=== PATIENT | female | born 1995 | race Caucasian/White ===

== ENCOUNTER 2022-12-09 10:51 | Outpatient (OUT) | payer BC, SELFPAY ==
--- NOTE | 2022-12-09 10:54 | US_ITS ---
[address] [address] Patient Name: CHARLES SANTOS MRN: [id number] date: 1995 Sex: F Assigned Patient Location: US Current Patient Location: Accession/Order Number: [id number] Exam Date: 12/09/2022 10:54 Report Date: 12/10/2022 17:39 At the request of: OLLIE SALAZAR Procedure: US OB transvaginal EXAMINATION: US OB transvaginal HISTORY: MISSED MENSES COMPARISON: No relevant comparison available. FINDINGS: Heart Rate: 186.0 bpm Number: 1.0 Gestational sac: 3.29 cm, 8 weeks 2 days CRL: 2.1 cm, 8 weeks 6 days Yolk sac: 4.6 mm The uterus is normal in appearance The right ovary is normal. The left ovary contains a 5.2 cm cystic lesion possibly corpus luteal cyst Cervix: Closed, 3.6 cm GESTATIONAL AGE: Age by EDC: 9 weeks 0 days ABIGAIL by EDC: 07/14/2023 Age by US: 8 weeks 6 days ABIGAIL by US: 07/15/2023 US/US OB transvaginal IMPRESSION: Viable colby intrauterine gestation measuring 8 weeks 6 days Electronically authenticated by: BERENICE NEWBERRY Date: 12/10/2022 17:39
== END 2022-12-09 10:52 | disposition home or self-care (01) ==
LOC: US 10:51
PROVIDERS: Visit Provider Obstetrics & Gynecology
DX: Z34.91 Encounter for supervision of normal pregnancy, unspecified, first trimester (principal); N92.6 Irregular menstruation, unspecified
CPT/HCPCS: 76817

== ENCOUNTER 2022-12-16 11:00 | Outpatient (OUT) | payer BC, SELFPAY ==
[2022-12-16 12:03] LABS: Basophils Absolute Auto 0.1 10^3/uL (0.0-0.1); Basophils Percent Auto 0.6 % (0.2-2.0); Eosinophils Absolute Auto 0.2 10^3/uL (0.0-0.7); Eosinophils Percent Auto 2.8 % (0.9-7.0); Hematocrit 36.9 % (36.0-48.0); Hemoglobin 12.5 g/dL (12.0-16.0); Immature Granulocytes Abs Auto 0.06 10^3/uL (0.00-0.03); Immature Granulocytes Pct Auto 0.7 % (0.0-0.5); Lymphocytes Percent Auto 24.2 % (20.5-60.0); Mean Corpuscular HGB Conc 33.9 g/dL (29.9-35.2); Mean Corpuscular Hemoglobin 33.9 pg (26.7-34.0); Mean Platelet Volume 9.8 fL (9.5-13.5); Monocytes Absolute Auto 0.8 10^3/uL (0.3-0.8); Monocytes Percent Auto 9.4 % (1.7-12.0); Neutrophils Absolute Auto 5.2 10^3/uL (1.4-6.5); Neutrophils Percent Auto 62.3 % (43.0-75.0); Platelet Count 340 10^3/uL (150-450); Red Blood Count 3.69 10^6/uL (4.20-5.40); Red Cell Distribution Width 12.1 % (11.0-15.0); White Blood Count 8.3 10^3/uL (4.0-11.0)
[2022-12-16 12:19] LABS: Estimated Average Glucose 100 mg/dL; Glycohemoglobin A1C 5.1 % (4.5-6.2)
[2022-12-16 12:31] LABS: Thyroid Stimulating Hormone 2.603 uIU/mL (0.358-3.740)
[2022-12-17 05:07] LABS: HCV Ab Non Reactive (Non Reactive); HIV Ab/p24 Ag Screen Non Reactive (Non Reactive)
[2022-12-17 06:12] LABS: HBsAg Screen Negative (Negative)
[2022-12-17 10:08] LABS: Rapid Plasma Reagin, Quant Non Reactive (NonRea<1:1)
== END 2022-12-16 11:01 | disposition home or self-care (01) ==
LOC: LAB 11:03
PROVIDERS: PCP Family Medicine; Visit Provider Obstetrics & Gynecology
DX: Z34.80 Encounter for supervision of other normal pregnancy, unspecified trimester (principal); N92.6 Irregular menstruation, unspecified
CPT/HCPCS: 36415; 83036; 84443; 85025; 86592; 86762; 86803; 86850; 86900; 86901; 87086; 87340; 87389

== ENCOUNTER 2023-03-02 19:28 | Outpatient (REF) | payer BC, SELFPAY ==
[2023-03-07 12:10] LABS: Age Gdln ACOG Testing Note (.); IGP, rfx Aptima HPV ASCU Note (.)
== END 2023-03-02 19:29 | disposition home or self-care (01) ==
LOC: LAB 19:28
PROVIDERS: PCP Family Medicine; Visit Provider Obstetrics & Gynecology
DX: Z12.4 Encounter for screening for malignant neoplasm of cervix (principal)
CPT/HCPCS: G0145

== ENCOUNTER 2023-04-22 10:35 | Outpatient (OUT) | payer OTHER, SELFPAY ==
--- OUTSIDE RECORDS SUMMARY | 2023-04-22 10:42 | XMS_ITS | CCD ---
Author Name Unknown Address [address] [facility] [address] [place] [address] Organization [facility] Care Team Providers Care Sharemilker Name Role Phone MANSOOR, JUSTIN M Primary Care Physician Mansoor, Justin Unavailable Johana Duran Unavailable William Payne Unavailable Mansoor, DO Justin M. Primary Care Provider MD William Payne Attending Provider [phone] MANSOOR, JUSTIN M Admitting Unavailable MANSOOR, JUSTIN M Attending Unavailable MANSOOR, JUSTIN M Admitting Unavailable MANSOOR, JUSTIN M Attending Unavailable MANSOOR, JUSTIN M Referring Unavailable Mal, Olena A Admitting Unavailable Mal, Olena A Attending Unavailable Mal, Olena A Referring Unavailable Hajdari, Astrit H Attending Unavailable Hajdari, Astrit H Attending Unavailable SALAM, Brandon Admitting Unavailable SALAMRoma Attending Unavailable SALAM, Brandon Referring Unavailable Mal, Olena A Attending Unavailable Mal, Olena A Attending Unavailable Moelioy, Román E. Attending Unavailable Mal, Olena A Referring Unavailable Mourany, Román E. Attending Unavailable Mal, Olena A Referring Unavailable William Payne Admitting Unavailable William Payne Attending Unavailable Mansoor, Justin M. Primary Care Unavailable William Payne Admitting Unavailable William Payne Attending Unavailable Mansoor, Justin M. Primary Care Unavailable Mansoor, Justin M. Admitting Unavailable Mansoor, Justin M. Attending Unavailable Mansoor, Justin M. Primary Care Unavailable William Payne Admitting Unavailable William Payne Attending Unavailable Mansoor, Justin M. Primary Care Unavailable JOCE DAVIDSON Attending Unavailable Allergies Allergy Classification Reported Allergen(s) Allergy Type Date of Onset Reaction(s) Facility (20 sources) Azithromycin; Translations: [azithromycin] Drug Allergy Eruption (morphologic abnormality), Itching (finding) [facility] (20 sources) rizatriptan Drug Allergy nausea [facility] [employer] Other (20 sources) meloxicam Drug Allergy worse joint symptoms, nauseous [facility] [employer] Other (20 sources) Acetaminophen / Codeine Drug Allergy rash/facial swelling [facility] [employer] Other (4 sources) Codeine; Translations: [codeine] Drug Allergy Eruption of skin (disorder) [facility] (20 sources) Diclofenac Drug Allergy nausea [facility] [employer] Other (1 source) Azithromycin; Translations: [Zithromax Z-Sixto] Drug Allergy [facility] Medications Current Medications Medication Drug Class(es) Dates Sig (Normalized) Sig (Original) acetaminophen 500 mg oral tablet (1 source) take 1 tablet by mouth every six hours Tylenol Extra Strength 500 MG 1 tablet as needed Orally every 6 hrs Active acetaminophen 250 mg / aspirin 250 mg / caffeine 65 mg oral tablet (20 sources) Platelet Aggregation Inhibitor, Nonsteroidal Anti-inflammatory Drug, Central Nervous System Stimulant, Methylxanthine take 2 tablets by mouth every twenty-four hours take 2 tablets by mouth every tw enty-four hours acetaminophen 300 mg / codeine phosphate 30 mg oral tablet (20 sources) Opioid Agonist Start: 08-24-2022 take 1 tablet by mouth every six hours Start: 08-16-2022 take 1 tablet by shelby th every six hours Acetaminophen-Codeine #3 300-30 MG 1 tablet as needed Orally every 6 hrs for 7 days August, Active Start: 08-10-2022 take 1 tablet by shelby th every six hours Acetaminophen-Codeine #3 300-30 MG 1 tablet as needed Orally every 6 hrs for 7 days Jul, Active Start: 08-02-2022 take 1 tablet by shelby th every six hours Acetaminophen-Codeine #3 300-30 MG 1 tablet as needed Orally every 6 hrs for 7 days Jul, Active Start: 07-27-2022 acetaminophen- codeine 300 mg-30 mg Tab Refill(s) 0 Start Date: 07/27/22 Status: Ordered Start: 07-25-2022 take 1 tablet by shelby th every six hours Acetaminophen-Codeine #3 300-30 MG 1 tablet as needed Orally every 6 hrs for 7 days Jul, Active Start: 07-18-2022 take 1 tablet by shelby th every six hours Acetaminophen-Codeine #3 300-30 MG 1 tablet as needed Orally every 6 hrs for 7 days Jul, Active Start: 07-06-2022 take 1 tablet by shelby th every six hours Acetaminophen-Codeine #3 300-30 MG 1 tablet as needed Orally every 6 hrs for 7 days Jun, Active Start: 06-24-2022 take 1 tablet by shelby th every six hours Acetaminophen-Codeine #3 300-30 MG 1 tablet as needed Orally every 6 hrs for 7 days Jun, Active Start: 06-14-2022 take 1 tablet by shelby th every six hours Acetaminophen-Codeine #3 300-30 MG 1 tablet as needed Orally every 6 hrs for 7 days May, Active Start: 2022 take 1 tablet by shelby th every six hours Acetaminophen-Codeine #3 300-30 MG 1 tablet as needed Orally every 6 hrs for 7 days May, Active Start: 03-07-2022 take 1 tablet by shelby th every six hours Acetaminophen-Codeine #3 300-30 MG 1 tablet as needed Orally every 6 hrs for 7 days Feb, Active Start: 02-11-2022 take 1 tablet by shelby th every six hours Acetaminophen-Codeine #3 300-30 MG 1 tablet as needed Orally every 6 hrs for 7 days Jan, Active Start: 01-18-2022 take 1 tablet by shelby th every six hours Acetaminophen-Codeine #3 300-30 MG 1 tablet as needed Orally every 6 hrs for 7 days Jan, Active Start: 01-06-2022 take 1 tablet by shelby th every six hours Acetaminophen-Codeine #3 300-30 MG 1 tablet as needed Orally every 6 hrs for 7 days Dec, Active Start: 12-14-2021 take 1 tablet by shelby th every six hours Acetaminophen-Codeine #3 300-30 MG 1 tablet as needed Orally every 6 hrs for 7 days Nov, Active Start: 10-22-2021 take 1 tablet by shelby th every six hours Acetaminophen-Codeine #3 300-30 MG 1 tablet as needed Orally every 6 hrs for 7 days Nov, Active Start: 09-27-2021 take 1 tablet by shelby th every six hours Acetaminophen-Codeine #3 300-30 MG 1 tablet as needed Orally every 6 hrs for 7 days Sep, Active Start: 09-01-2021 take 1 tablet by shelby th every six hours Acetaminophen-Codeine #3 300-30 MG 1 tablet as needed Orally every 6 hrs for 7 days August, Active Start: 08-05-2021 take 1 tablet by shelby th every six hours Acetaminophen-Codeine #3 300-30 MG 1 tablet as needed Orally every 6 hrs for 7 days Jul, Active Start: 12-15-2020 take 1 tablet by shelby th every six hours Acetaminophen-Codeine #3 300-30 MG 1 tablet as needed Orally every 6 hrs for 7 days Nov, Not-Taking acetaminophen 325 mg / HYDROcodone bitartrate 5 mg oral tablet (5 sources) Opioid Agonist Start: 10-31-2022 take 1 tablet by mouth every twelve hours Start: 10-31-2022 take 1 tablet by shelby th every twelve hours HYDROcodone-Acetaminophen 5-325 MG 1 tab let as needed Orally every 12 hrs for 5 days Oct, Active Start: 10-21-2022 take 1 tablet by shelby th every twelve hours Start: 10-21-2022 take 1 tablet by shelby th every twelve hours HYDROcodone-Acetaminophen 5-325 MG 1 tab let as needed Orally every 12 hrs for 5 days Oct, Active ARIPiprazole 5 mg oral tablet (8 sources) Atypical Antipsychotic Start: 11-09-2022 aripiprazole 5 mg Tab Refills(s) 0 Start Date: 11/09/22 Status: Ordered azithromycin 250 mg oral tablet (9 sources) Macrolide Antimicrobial Start: 01-06-2022 Zithromax Z-Sixto 250 MG as directed Orally daily for 5 days Dec, Active cyclobenzaprine hydrochloride 10 mg oral tablet (20 sources) Muscle Relaxant Start: 10-06-2022 take 1 tablet by mouth twice daily as needed Cyclobenzaprine HCl 10 MG 1 tablet as needed Orally up to twice daily as needed for 30 days Sep, Active eletriptan 40 mg oral tablet (10 sources) Serotonin-1b and Serotonin-1d Receptor Agonist Start: 06-21-2022 take 1 tablet by mouth every two hours Relpax 40 MG 1 tablet Orally at the onset of migraine, may repeat in 2 hrs for 30 days Jun, Active escitalopram 20 mg oral tablet (20 sources) Serotonin Reuptake Inhibitor Start: 07-05-2017 take 1 tablet by mouth every twenty-four hours Lexapro 20 MG 1 tablets Orally Once a day for 90 days Jun, Active Start: 07-05-2017 take 1 tablet by shelby once daily Lexapro 10 mg Tab 10 mg = 1 tab(s), Oral, Daily, Refills(s) 0, Anxiety Start Date: 02/04/20 Status: Ordered Nexium (20 sources) Proton Pump Inhibitor Start: 08-12-2021 Nexium O ral, Daily, Refills(s) 0, Control of stomach acid Start Date: 08/12/21 Status: Ordered Start: 08-12-2021 Nexium Oral, D aily, Refills(s) 0 Start Date: 08/12/21 Status: Ordered Start: 10-16-2020 take 1 capsule by mo [facility] every twenty-four hours Esomeprazole Magnesium 20 MG 1 capsule Orally Once a day for 30 day(s) Oct, Active famotidine 20 mg oral tablet (4 sources) Histamine-2 Receptor Antagonist take 1 tablet by mouth every twenty-four hours Pepcid 20 MG 1 tablet at bedtime as needed Orally Once a day Active magnesium sulfate 225 MG / potassium chloride 188 MG / sodium sulfate 1479 MG Oral Tablet [Sutab] (3 sources) Start : 07-27 take 1 tablet by mouth once Sutab oral tablet See Instructions, 1 EA, Refill(s) 0, Please follow instructions per packaging and physician's handout, [facility], 157, cm, 07/27/22 9:34:00 EDT, Height/Length Dosing, 76.7, kg, 07/27/22 9:34:00 EDT, Weight Dosing Start Date: 07/27/22 Status: Ordered meloxicam 15 mg oral tablet (20 sources) Nonsteroidal Anti-inflammatory Drug Start : 07-27 meloxicam 15 mg Tab Refills(s) 0, Arthritis Start Date: 07/27/22 Status: Ordered methylPREDNISolone 4 mg oral tablet (3 sources) Corticosteroid Start : 08-23 methylPREDNISolone 4 MG as directed Orally as directed for 6 days August, Active metoclopramide 5 mg oral tablet (1 source) Dopamine-2 Receptor Antagonist Start : 02-22 End: 03-01 take 1 tablet by mouth every six hours Reglan 5 mg Tab 5 mg = 1 tab(s), Oral, q6hr, to use if zofran fails., X 7 day(s), # 20 tab(s), Refills(s) 0, Pharmacy: [facility] #[id number], 158, cm, 02/22/23 12:17:00 EST, Height/Length Dosing, 87.3, kg, 02/22/23 12:17:00 EST, Weight Dosing Start Date: 02/22/23 Stop Date: 03/01/23 Status: Ordered montelukast 10 mg oral tablet (20 sources) Leukotriene Receptor Antagonist Start : 02-03 take 1 tablet by mouth once daily Singulair 10 mg Tab 10 mg = 1 tab(s), Oral, Daily, Refills(s) 0, Allergy symptoms Start Date: 02/04/20 Status: Ordered omeprazole 40 mg delayed release oral capsule (20 sources) Proton Pump Inhibitor Start : 09-26 take 1 capsule by mouth once daily omeprazole 40 mg Cap-DR 40 mg = 1 cap(s), Oral, Daily, # 90 cap(s), Refills(s) 3, Pharmacy: [facility] #[id number], 158, cm, 11/09/22 13:50:00 EDT, Height/Length Dosing, 76.2, kg, 11/09/22 13:50:00 EDT, Weight Dosing Start Date: 12/29/22 Status: Ordered take 1 capsule by mouth once naima ly Omeprazole 20 MG 1 capsule 30 minutes before morning meal Orally Once a day Active ondansetron 8 mg oral tablet (8 sources) Serotonin-3 Receptor Antagonist Start: 11-22-2022 take 1 tablet by mouth every eight hours as needed Zofran ODT 8 MG 1 tablet on the tongue and allow to dissolve as needed Orally every 8 hrs for 7 days Nov, Active phentermine hydrochloride 37.5 mg oral tablet (20 sources) Sympathomimetic Amine Anorectic Start: 07-19-2022 phentermine 37.5 mg Tab Refills(s) 0 Start Date: 07/27/22 Status: Ordered Start: 11-05-2021 take 1 tablet by shelby th every twenty-four hours Phentermine HCl 37.5 MG 1 tablet Orally Once a day for 30 days Nov, Active Start: 10-05-2021 take 1 tablet by shelby th every twenty-four hours Phentermine HCl 37.5 MG 1 tablet Orally Once a day for 30 days Sep, Active Start: 11-16-2020 take 1 tablet by shelby th every twenty-four hours Phentermine HCl 37.5 MG 1 tablet Orally Once a day for 30 days Nov, Not-Taking Adipex-P Active polyethylene glycol 3350 with electrolytes Oral Pwdr for Whitney 4000 mL (NuLytely) (1 source) Start: 08-12-2021 End: 09-02-2021 take 1 dose by mouth once polyethylene glycol 3350 with electrolytes Oral Pwdr for Whitney 4000 mL (NuLytely) See Instructions, 1 EA, Refill(s) 0, per physician's instructions prior to colonoscopy as instructed by Dr. Hawkins., [facility], 157, cm, 08/12/21 12:58:00 EDT, Height/Length Dosing, 89.7, kg, 08/12/21 12:58:00 EDT, Weight Dosing Start Date: 08/12/21 Stop Date: 09/02/21 Status: Ordered predniSONE 20 mg oral tablet (10 sources) Start: 01-06-2022 take 3 tablets by mouth every twenty-four hours predniSONE 20 MG 3 tablet Orally Once a day for 6 day(s) Dec, Active rizatriptan 10 mg disintegrating oral tablet (1 source) Serotonin-1b and Serotonin-1d Receptor Agonist take 1 tablet by mouth every two hours Rizatriptan Benzoate 10 MG 1 tablet Orally at the onset of migraine - may repeat in 2 hrs for 30 day(s) Active TENS Unit (20 sources) Start: 09-02-2022 Start: 09-02-2022 Start: 09-02-2022 TENS Unit Use as directed. August, Not-Taking traMADol hydrochloride 50 mg oral tablet (20 sources) Opioid Agonist Start: 11-08-2022 take 1 tablet by mouth every twelve hours Start: 10-26-2022 take 1 tablet by shelby th every twelve hours Start: 10-12-2022 take 1 tablet by shelby th every twelve hours traMADol HCl 50 MG 1 tablet as needed Orally BID for 14 days Sep, Active Start: 09-26-2022 take 50 mg by mouth every twelve hours as needed for pain tramadol 50 mg, Oral, q12hr, PRN Other (see comment), Refills(s) 0, Pain Start Date: 09/26/22 Status: Ordered Start: 09-19-2022 take 1 tablet by shelby th every twelve hours traMADol HCl 50 MG 1 tablet as needed Orally BID for 14 days Sep, Active Start: 09-06-2022 take 1 tablet by shelby th every twelve hours traMADol HCl 50 MG 1 tablet as needed Orally BID for 14 days August, Active Tylenol Extra Strength 500 M G (20 sources) take 1 tablet by mouth every six hours as needed take 1 tablet by shelby th every six hours as needed Tylenol Extra Strength 500 MG 1 tablet a s needed Orally every 6 hrs Active Ubrelvy 100 MG (20 sources) Start: 06-06-2022 Start: 06-06-2022 Start: 06-06-2022 Ubrelvy 100 MG 1 tablet may take second dose at least 2 hours after first dose as needed Orally Once a day for 30 days May, Not-Taking Start: 06-06-2022 Ubrelvy 100 MG 1 tablet may take second dose at least 2 hours after first dose as needed Orally Once a day for 30 days May, Active Start: 06-06-2022 Ubrelvy 100 MG 1 tablet may take second dose at least 2 hours after first dose as needed Orally Once a day for 2 days May, Active ubrogepant 100 mg oral tablet (6 sources) Start: 06-06-2022 Ubrelvy 100 MG 1 tablet may take second dose at least 2 hours after first dose as needed Orally Once a day for 30 days May, Active Zofran ODT 4 mg Tab-Dis (9 sources) Start: 02-22-2023 take 1 tablet by mouth every eight hours as needed for nausea Zofran ODT 4 mg Tab-Dis 4 mg = 1 tab(s), Oral, q8hr, PRN Nausea/Vomiting, # 12 tab(s), Refills(s) 0, Pharmacy: [id number], 158, cm, 02/22/23 12:17:00 EST, Height/Length Dosing, 87.3, kg, 02/22/23 12:17:00 EST, Weight Dosing Start Date: 02/22/23 Status: Ordered Start: 03-23-2022 take 1 tablet by shelby th every eight hours as needed for nausea Zofran ODT 4 mg Tab-Dis 4 mg = 1 tab(s), Oral, q8hr, PRN Nausea/Vomiting, # 12 tab(s), Refills(s) 0, Pharmacy: [facility] #[id number], 157, cm, 03/23/22 13:50:00 EST, Height/Length Dosing, 80.1, kg, 03/23/22 13:50:00 EST, Weight Dosing Start Date: 03/23/22 Status: Ordered Completed/Discontinued Medications Medication Drug Class(es) Dates Sig (Normalized) Sig (Original) amoxicillin 875 mg / clavulanate 125 mg oral tablet (8 sources) Penicillin-class Antibacterial Start: 01-12-2022 take 1 tablet by mouth every twelve hours Amoxicillin-Pot Clavulanate 875-125 MG 1 tablet Orally every 12 hrs for 10 day(s) Dec, Not-Taking diclofenac sodium 0.01 mg/mg topical gel (20 sources) Nonsteroidal Anti-inflammatory Drug Start: 09-02-2022 Voltaren 1 % as directed Externally 1-2 grams every 6-8 hour as needed for 30 days August, Not-Taking Start: 08-17-2022 take 1 tablet by mouth every t welve hours fexofenadine hydrochloride 180 mg oral tablet (9 sources) Histamine-1 Receptor Antagonist take 1 tablet by mouth every twenty-four hours Allergy 24-HR 180 MG 1 tablet as needed Orally Once a day Not-Taking fluticasone propionate 0.05 mg/actuat metered dose nasal spray (20 sources) Corticosteroid take 2 spray(s) nasal route once daily as needed Fluticasone Propionate 50 MCG/ACT 2 spray in each nostril Nasally Once a day Not-Taking/PRN take 2 spray(s) nasal route once daily Fluticasone Propionate 50 MCG/ACT 2 spray in each nostril Nasally Once a day Not-Taking Problems Active Problems Problem Classification Problem Date Documented Da te Episodic/Chronic Abdominal pain (8 sources) Epigastric pain; Translations: [Epigastric pain] Onset: 3 Episodic Anxiety disorders (20 sources) Anxiety; Translations: [Anxiety disorder, unspecified] Onset: 2 Resolved: 2 Chronic Biliary tract disease (5 sources) Cholelithiasis without obstruction; Translations: [Calculus of gallbladder without cholecystitis without obstruction] Onset: 3 Episodic Esophageal disorders (20 sources) Gastroesophageal reflux disease without esophagitis; Translations: [Gastro-esophageal reflux disease without esophagitis] Onset: 3 Chronic Gastroduodenal ulcer (except hemorrhage) (3 sources) Gastric ulcer; Translations: [Gastric ulcer, unspecified as acute or chronic, without hemorrhage or perforation] Onset: 3 Chronic Gastrointestinal hemorrhage (20 sources) Melena; Translations: [Melena] Onset: 2 Resolved: 2 Episodic Headache; including migraine (20 sources) Migraine without aura, not refractory ; Translations: [Migraine without aura, not intractable, without status migrainosus] Chronic Hemorrhoids (3 sources) Hemorrhoids; Translations: [Unspecified hemorrhoids] Onset: 3 Episodic Immunizations and screening for infectious disease (2 sources) Encounter for immunization Onset: 1 Resolved: 1 Episodic Malaise and fatigue (20 sources) Fatigue; Translations: [Chronic fatigue, unspecified] Chronic Menstrual disorders (20 sources) Amenorrhea; Translations: [Amenorrhea, unspecified] Chronic Nausea and vomiting (13 sources) Nausea and vomiting; Translations: [Nausea with vomiting, unspecified] Onset: 3 08-12-2021 Episodic Other complications of (1 source) Vomiting of ; Translations: [Vomiting of , unspecified] Onset: 3 Episodic Other connective tissue disease (10 sources) Trochanteric bursitis 07-19-2016 Episodic Other connective tissue disease (1 source) Myalgia, other site Episodic Other gastrointestinal disorders (1 source) Abnormal feces; Translations: [Other fecal abnormalities] Onset: 3 Episodic Other gastrointestinal disorders (2 sources) Hard stool 11-09-2022 Episodic Other nervous system disorders (20 sources) Disturbance of attention; Translations: [Attention and concentration deficit] Chronic Other nervous system disorders (3 sources) Attention and concentration deficit Chronic Other nervous system disorders (20 sources) Chronic pain; Translations: [Other chronic pain] Chronic Other nervous system disorders (1 source) Other chronic pain Chronic Other non-traumatic joint disorders (1 source) Pain in right shoulder Episodic Other nutritional; endocrine; and metabolic disorders (20 sources) Body mass index 40+ - severely obese; Translations: [Body mass index (BMI) 40.0-44.9, adult] Chronic Other nutritional; endocrine; and metabolic disorders (20 sources) Body mass index 30+ - obesity; Translations: [Body mass index (BMI) 39.0-39.9, adult] 08-05-2022 Chronic Other nutritional; endocrine; and metabolic disorders (1 source) Body mass index (BMI) 36.0-36.9, adult Onset: 2 Resolved: 2 Chronic Other nutritional; endocrine; and metabolic disorders (2 sources) Body mass index (BMI) 35.0-35.9, adult Onset: 2 Resolved: 2 Chronic Other nutritional; endocrine; and metabolic disorders (1 source) Body mass index (BMI) 34.0-34.9, adult Onset: 2 Resolved: 2 Chronic Other nutritional; endocrine; and metabolic disorders (3 sources) Body mass index (BMI) 30.0-30.9, adult Chronic Other nutritional; endocrine; and metabolic disorders (20 sources) Obesity; Translations: [Obesity, unspecified] Chronic Other nutritional; endocrine; and metabolic disorders (1 source) Obese class I; Translations: [Body mass index (BMI) 31.0-31.9, adult] Onset: 3 Chronic Other nutritional; endocrine; and metabolic disorders (3 sources) Obesity, unspecified Chronic Other nutritional; endocrine; and metabolic disorders (1 source) Body mass index (BMI) 29.0-29.9, adult Episodic Other upper respiratory disease (20 sources) Seasonal allergy; Translations: [Other seasonal allergic rhinitis] Chronic Other upper respiratory disease (7 sources) Other seasonal allergic rhinitis Onset: 2 Resolved: 2 Chronic Other upper respiratory infections (1 source) Acute upper respiratory infection, unspecified Episodic Residual codes; unclassified (8 sources) Family history of polyp of colon; Translations: [Family history of colonic polyps] Onset: 3 Episodic Residual codes; unclassified (1 source) 9 weeks gestation of Episodic Spondylosis; intervertebral disc disorders; other back problems (20 sources) Degeneration of cervical intervertebral disc; Translations: [Degeneration of lumbar intervertebral disc] Onset: 1 Resolved: 2 03-20-2016 Chronic Spondylosis; intervertebral disc disorders; other back problems (15 sources) Chronic low back pain; Translations: [Cervicalgia] Onset: 3 07-19-2016 Episodic Substance-related disorders (8 sources) Smoker 03-23-2022 Chronic Comment on above: Added secondary to d ocumentation in Social History. Unclassified (1 source) Pain in right shoulder; Translations: [Pain in right shoulder] Onset: 3 Unclassified (1 source) Low back pain, unspecified; Translations: [Low back pain, unspecified] Onset: 3 Past or Other Problems Problem Classification Problem Date Documented Da te Episodic/Chronic Allergic reactions (1 source) Allergic contact dermatitis due to plants, except food Onset: 08-23-2021 Resolved: 08-23-2021 Episodic Unclassified (10 sources) Onset: 04-17-2012 Resolved: 12-27-2012 10-23-2014 Unclassified (1 source) Low back pain, unspecified back pain laterality, unspecified chronicity, unspecified whether sciatica present M54.50 Results Test Name Value Interpretation Reference Range Facility C Urineon 02-24-2023 Bacteria identified Cx Nom (U) Microbiology PROCEDURE: Urine Culture [R1] SOURCE: U CleanCatch BODY SITE: COLLECTED DATE/TIME: 02/22/2023 12:21 EST RECEIVED DATE/TIME: 02/22/2023 13:21 EST START DATE/TIME: 02/22/2023 13:22 EST FREE TEXT SOURCE: Alex Modi, Rodney Johnson M.D., Rodney Wood FINAL REPORTS Final Report [] Verified Date/Time: 02/24/2023 09:16 EST <10,000 cfu/ml Mixed skin contaminants Performing Locations R1: This test was performed at: [facility], [address] [place] [address], [id number] , , Normal [facility] Comment on above: Performed By: #### 2 [id number] #### [facility] [address] [place] [id number] Auto Diffon 02-22-2023 Basophils/100 WBC (Bld) 0.5 % Normal 0.0-2.0 [facility] Comment on above: Order Comment: Order Added by Discern Expert. Performed By: #### 2 [id number] #### [facility] [address] [place] [id number] Basophils/Leukocyt es Auto (Bld) [Pure # fraction] 0.0 E9/L Normal 0.0-0.2 [facility] Comment on above: Order Comment: Order Added by Discern Expert. Performed By: #### 2 [id number] #### [facility] [address] [place] [id number] Eosinophils/100 WBC (Bld) 1.8 % Normal 0.0-8.0 [facility] Comment on above: Order Comment: Order Added by Discern Expert. Performed By: #### 2 [id number] #### [facility] [address] [place] [id number] Eosinophils/Leukoc ytes Auto (Bld) [Pure # fraction] 0.2 E9/L Normal 0.0-0.5 [facility] Comment on above: Order Comment: Order Added by Discern Expert. Performed By: #### 2 [id number] #### [facility] [address] [place] [address] Lymphocytes/100 WBC (Bld) 19.0 % Normal 14.0-50.0 [facility] Comment on above: Order Comment: Order Added by Discern Expert. Performed By: #### 2 874932, 0008070, 9599025, 71363406, 2518904, 8201002 #### [facility] [address] [place] [address] Lymphocytes/Leukoc ytes Auto (Bld) [Pure # fraction] 1.6 E9/L Normal 1.0-4.0 [facility] Comment on above: Order Comment: Order Added by Discern Expert. Performed By: #### 2 854728, 7048363, 6901513, 27055495, 7496343, 7974843 #### [facility] [address] [place] [address] Monocytes/100 WBC (Bld) 7.4 % Normal 4.0-14.0 [facility] Comment on above: Order Comment: Order Added by Discern Expert. Performed By: #### 2 134370, 2969266, 5023730, 82915523, 2251406, 0740047 #### [facility] [address] [place] [address] Monocytes/Leukocyt es Auto (Bld) [Pure # fraction] 0.6 E9/L Normal 0.2-1.0 [facility] Comment on above: Order Comment: Order Added by Discern Expert. Performed By: #### 2 067673, 1145777, 6145696, 05851238, 4125280, 3210799 #### [facility] [address] [place] [address] Neutrophils/100 WBC (Bld) 71.3 % Normal 36.0-75.0 [facility] Comment on above: Order Comment: Order Added by Discern Expert. Performed By: #### 2 173331, 7314316, 3868260, 19858782, 0164601, 7840717 #### [facility] [address] [place] [address] Neutrophils/Leukoc ytes Auto (Bld) [Pure # fraction] 6.0 E9/L Normal 2.0-7.5 [facility] Comment on above: Order Comment: Order Added by Discern Expert. Performed By: #### 2 136525, 2275464, 7623342, 89869225, 7398352, 9846599 #### [facility] [address] [place] [address] BMPon 02-22-2023 Creatinine [Mass/Vol] 0.5 mg/dL Normal 0.5-1.3 [facility] Comment on above: Performed By: #### 2 955350, 4464645, 9427032, 66774442, 1140027, 0684228 ####[facility] [address] [place] [address] Urea nitrogen [Mass/Vol] 6 mg/dL Normal 5-21 [facility] Comment on above: Performed By: #### 2 651644, 9904983, 5418990, 52125519, 6164939, 2234357 ####[facility] [address] [place] [address] Urea nitrogen/Creatinin e [Mass ratio] 12 No Units Normal 10-20 [facility] Comment on above: Performed By: #### 2 764939, 2513886, 5627356, 42661649, 2100865, 3921022 ####[facility] [address] [place] [address] Anion gap [Moles/Vol] 9 mmol/L Normal 6-16 [facility] Comment on above: Performed By: #### 2 816818, 7948714, 6635837, 93467643, 8867364, 7943763 ####[facility] [address] [place] [address] Calcium [Mass/Vol] 8.8 mg/dL Low 8.9-11.1 [facility] Comment on above: Performed By: #### 2 063482, 6446082, 4325585, 95494077, 4262091, 4999279 ####[facility] [address] [place] [address] Chloride [Moles/Vol] 108 mmol/L Normal 101-111 [facility] Comment on above: Performed By: #### 2 599099, 3691705, 8447707, 10398413, 8481482, 1429532 ####[facility] [address] [place] [address] CO2 [Moles/Vol] 23 mmol/L Normal 21-31 [facility] Comment on above: Performed By: #### 2 882257, 8633815, 8894975, 29750102, 3640112, 6155942 ####[facility] [address] [place] [address] Glucose [Mass/Vol] 93 mg/dL Normal 55-199 [facility] Comment on above: Result Comment: If t his glucose result represents a fasting glucose, interpretation should refer to the following reference range: 55-99 mg/dL Performed By: #### 2 468956, 4521796, 0049576, 48438788, 0200339, 2130784 ####[facility] [address] [place] [address] Potassium [Moles/Vol] 3.4 mmol/L Low 3.5-5.3 [facility] Comment on above: Performed By: #### 2 782893, 3610153, 1098602, 66593453, 9434547, 0955530 ####[facility] [address] [place] [address] Sodium [Moles/Vol] 137 mmol/L Normal 135-145 [facility] Comment on above: Performed By: #### 2 857928, 0671627, 1493161, 02910231, 4574426, 9072121 ####[facility] [address] [place] [address] CBC w/ Auto Diffon 3 Erythrocyte distribution width (RBC) [Ratio] 12.6 % Normal 10.9-14.2 [facility] Comment on above: Performed By: #### 2 194825, 5089789, 1885629, 59068297, 1718466, 9108178 #### [facility] [address] [place] [address] Hematocrit (Bld) [Volume fraction] 35.9 % Normal 34.0-46.0 [facility] Comment on above: Performed By: #### 2 172174, 9404979, 7320663, 66074620, 8020835, 8792236 #### [facility] [address] [place] [address] Hemoglobin (Bld) [Mass/Vol] 12.0 g/dL Normal 12.0-16.0 [facility] Comment on above: Performed By: #### 2 698005, 9086570, 4403701, 05433075, 4349853, 9139006 #### [facility] [address] [place] [address] MCH (RBC) [Entitic mass] 32.7 pg Normal 27.0-34.0 [facility] Comment on above: Performed By: #### 2 395084, 3829643, 1655007, 44582016, 6989407, 1058650 #### [facility] [address] [place] [address] MCHC (RBC) [Mass/Vol] 33.4 g/dL Normal 31.4-36.0 [facility] Comment on above: Performed By: #### 2 404485, 6768739, 5576403, 92028805, 9020980, 0096907 #### [facility] [address] [place] [address] MCV (RBC) [Entitic vol] 97.8 fL Normal 80.0-100.0 [facility] Comment on above: Performed By: #### 2 281859, 6434620, 0890712, 17904614, 2269349, 2023287 #### [facility] [address] [place] [address] Platelet mean volume (Bld) [Entitic vol] 7.9 fL Normal 6.4-10.8 [facility] Comment on above: Performed By: #### 2 805969, 6193315, 6177756, 77071508, 1779954, 8195081 #### [facility] [address] [place] [address] Platelets (Bld) [#/Vol] 323.0 E9/L Normal 150.0-500.0 [facility] Comment on above: Performed By: #### 2 981681, 2960756, 4267666, 86277741, 9550700, 1931025 #### [facility] [address] [place] [address] RBC (Bld) [#/Vol] 3.7 E12/L Low 4.3-5.9 [facility] Comment on above: Performed By: #### 2 971859, 7780986, 5983986, 16053351, 1430185, 9791764 #### [facility] [address] [place] [address] WBC corrected for nucl RBC Auto (Bld) [#/Vol] 8.4 E9/L Normal 4.0-11.0 [facility] Comment on above: Performed By: #### 2 563103, 7763267, 7061044, 54426997, 2660468, 8999676 #### [facility] [address] [place] [address] CHEMISTRYOrdered By: SYSTEM SYSTEM on 02-22-2023 Albumin [Mass/Vol] 3.4 g/dL Normal 3.3 - 5.0 gm/dL [facility] Albumin/Globulin [Mass ratio] 1.1 {ratio} Normal 1.1 - 2.2 [facility] ALP [Catalytic activity/Vol] 35 [iU]/d Normal 21 - 98 Int._Unit/L [facility] ALT No additional P-5'-P [Catalytic activity/Vol] 13 [iU]/d Normal 6 - 46 Int._Unit/L [facility] Anion gap [Moles/Vol] 9 mmol/L Normal 6 - 16 mEq/L [facility] AST [Catalytic activity/Vol] 13 [iU]/d Normal 5 - 43 Int._Unit/L [facility] Bilirubin [Mass/Vol] 0.2 mg/dL Normal 0.0 - 1.1 mg/dL [facility] Bilirubin.direct [Mass/Vol] mg/dL Normal 0.1 - 0.4 mg/dL [facility] Bilirubin.indirect [Mass or moles/Vol] Unable to Calculate mg/dL Invalid Interpretation Code 0.1 - 0.9 mg/dL [facility] Calcium [Mass/Vol] 8.8 mg/dL Low 8.9 - 11. 1 mg/dL [facility] Chloride [Moles/Vol] 108 mmol/L Normal 101 - 111 mmol/L [facility] CO2 [Moles/Vol] 23 mmol/L Normal 21 - 31 mmol/L [facility] Creatinine [Mass/Vol] 0.5 mg/dL Normal 0.5 - 1.3 mg/dL [facility] GFR/1.73 sq M.predicted among non-blacks MDRD (S/P/Bld) [Vol rate/Area] 130 mL/min/1.73 m2 Normal >=59mL/min/1.7 3 m2 [facility] Comment on above: Interpretive Data: C hronic kidney disease could be indicated at eGFR's of less than 60 mL/min/1.73m2. Kidney failure is indicated at less than 15 mL/min/1.73m2. Globulin (S) [Mass/Vol] 3.2 g/dL Normal 1.4 - 4.0 gm/dL [facility] Glucose [Mass/Vol] 93 mg/dL Normal 55 - 199 mg/dL [facility] Comment on above: Interpretive Data: I f this glucose result represents a fasting glucose, interpretation should refer to the following reference range: 55-99 mg/dL Lipase [Catalytic activity/Vol] 25 U/L Normal 13 - 58 unit/L [facility] Potassium [Moles/Vol] 3.4 mmol/L Low 3.5 - 5.3 mmol/L [facility] Protein [Mass/Vol] 6.6 g/dL Normal 6.0 - 7.8 gm/dL [facility] Sodium [Moles/Vol] 137 mmol/L Normal 135 - 145 mmol/L [facility] Urea nitrogen [Mass/Vol] 6 mg/dL Normal 5 - 21 mg/dL [facility] Urea nitrogen/Creatinin e [Mass ratio] 12 mg/mg Normal 10 - 20 [facility] Consent for Treatmenton Consent for Treatment [id number] Normal [facility] Discharge Instructionson Discharge Instructions [id number] Normal [facility] ED Clinical Summaryon 2022 ED Clinical Summary [place] [id number] ED Clinical Summary Person Information Name: BERENICE SANTOS/[facility] Age: 27 Years : 1995 Sex: Female Language: Sinhala PCP: JUSTIN MAX DO Marital Status: Visit Id: Visit Reason: Nausea; Vomiting - ; N/V Speciality: Acuity: 3 Enc Type: Emergency Med Service: Emergency Arrival: 02/22/2023 11:54:35 Discharge: 02/22/2023 14:31:04 LOS: 000 02:37 Checkin: 02/22/2023 11:54:35 Checkout: 02/22/2023 14:31:04 Dispo Type: Home (Routine DC) EVENTS: Event Name Event Status Request Date/Time Start Date/Time Complete Date/Time Arrive Complete 02/22/2023 11:54:35 02/22/2023 11:54:35 02/22/2023 11:54:35 Document Home Meds Request 02/22/2023 11:54:35 Triage Complete 02/22/2023 11:54:35 02/22/2023 12:17:28 02/22/2023 12:17:28 Registration Complete 02/22/2023 11:56:48 02/22/2023 11:56:48 02/22/2023 11:56:48 Reg Complete Request 02/22/2023 11:56:48 Reg Bed Request Complete 02/22/2023 11:56:48 02/22/2023 11:56:48 02/22/2023 11:56:48 Pending Labs Complete 02/22/2023 12:19:31 02/22/2023 13:03:09 Lab Complete 02/22/2023 12:19:31 02/22/2023 13:03:09 Urine Collect Complete 02/22/2023 12:19:31 02/22/2023 12:46:19 Bed Assign Complete 02/22/2023 12:24:58 02/22/2023 12:24:58 02/22/2023 12:24:58 Dr Exam Complete 02/22/2023 12:24:58 02/22/2023 12:26:07 02/22/2023 12:26:07 RN Exam Complete 02/22/2023 12:24:58 02/22/2023 13:55:32 02/22/2023 13:55:32 Registration Request 02/22/2023 12:26:07 Pending Labs Inlab 02/22/2023 12:29:30 02/22/2023 12:29:30 Lab Inlab 02/22/2023 12:29:30 02/22/2023 12:29:30 Dr Exam Complete 02/22/2023 12:33:38 02/22/2023 12:33:38 02/22/2023 12:33:38 Pending Labs Complete 02/22/2023 12:33:49 02/22/2023 12:33:49 02/22/2023 13:03:08 Lab Complete 02/22/2023 12:33:49 02/22/2023 12:33:49 02/22/2023 13:03:08 Pending Labs Complete 02/22/2023 12:34:32 02/22/2023 12:34:32 02/22/2023 12:34:33 Meds Admin Complete 02/22/2023 12:38:17 02/22/2023 13:11:56 Pending Labs Complete 02/22/2023 12:46:38 02/22/2023 12:46:38 02/22/2023 12:46:47 Lab Complete 02/22/2023 12:46:38 02/22/2023 12:46:38 02/22/2023 12:46:47 Discharge Complete 02/22/2023 14:22:00 02/22/2023 14:31:11 02/22/2023 14:31:11 Transfer Complete 02/22/2023 14:31:11 02/22/2023 14:31:11 02/22/2023 14:31:11 ADDRESS: [address] [place] [address] [place] [id number] [facility] DOC NOTES: MEDICAL INFORMATION: Prescriptions Given: New Medications [facility], [address] [place], [place] [id number], [phone] metoclopramide (Reglan 5 mg Tab) 1 Tablets By Mouth every 6 hours for 7 Days. to use if zofran fails.. Refills: 0. Medications to Continue Taking That Have Changed [facility], [address] [place], [place] [id number], [phone] START: ondansetron (Zofran ODT 4 mg Tab-Dis) 1 Tablets By Mouth every 8 hours as needed Nausea/Vomiting. Refills: 0. Other Medications START: ondansetron (Zofran ODT 4 mg Tab-Dis) 1 Tablets By Mouth every 8 hours as needed Nausea/Vomiting. Refills: 0. Medications to Continue with No Changes Other Medications aripiprazole (aripiprazole 5 mg Tab) cyclobenzaprine (cyclobenzaprine 10 mg Tab) escitalopram (Lexapro 10 mg Tab) 1 Tablets By Mouth every day. meloxicam (meloxicam 15 mg Tab) montelukast (Singulair 10 mg Tab) 1 Tablets By Mouth every day. omeprazole (omeprazole 40 mg Cap-DR) 1 Capsules By Mouth every day. Refills: 2. omeprazole (omeprazole 40 mg Cap-DR) 1 Capsules By Mouth every day. Refills: 3. omeprazole (omeprazole 40 mg Cap-DR) 1 Capsules By Mouth every day. Refills: 2. phentermine (phentermine 37.5 mg Tab) tramadol 50 Milligram By Mouth every 12 hours as needed Other (see comment). ubrogepant (Ubrelvy 100 mg oral tablet) PATIENT EDUCATION INFORMATION: Instructions: Follow up: With: Address: When: Joce DAVIDSON [facility], [address] [facility] , [place] [address] Business (1) In 3 days 02/25/2023 With: Address: When: JUSTIN MANSOOR [address] [place] [address] [address] Business (1) In 3 days 02/25/2023 Comments: Follow-up with your primary care provider in 3 to 5 days. If symptoms worsen, do not improve, or new symptoms arise please report back to emergency department for further evaluation. DIAGNOSIS: Vomiting during Normal [facility] ED Note-Physicianon 02-23-20 ED Note-Physician Basic Information Time Seen: Rodney Johnson M.D. 02/22/2023 12:26 Chief Complaint patient c/o nausea and vomiting that started 48 hours ago. patient states that she is unable to keep anything down. 19 wks . denies vaginal bleeding, feeling occasional abdominal cramping. OB Dr. davidson History of Present Illness 27-year-old female reports to the emergency department chief complaint of nausea vomiting. Reports ongoing for about 48 hours. Reports that she is unable to keep anything down. She states that she is 19 weeks . Reports that she has no vaginal bleeding with this, no belly pain. Reports that this is her second . Reports that she has never felt this bad before. Reports that she does follow-up with Dr. Davidson for her ENDOCRINOLOGY NURSE. Is appointment next week. Reports that she has had a intrauterine ultrasound before, and everything was looking well. Denies any fevers or chills. Denies any urinary symptoms. Review of Systems A 10 point review of systems is negative except as noted above. Medical and Surgical History: Reviewed and noted Social history: Lives at home Family History: Reviewed. Tobacco: denies, former Physical Exam Vitals & Measurements T: 36.7 ?C(Oral) HR: 74(Peripheral) RR: 18 BP: 126/74 SpO2: 98% HT: 158 cm WT: 87.3 kg BMI: 34.97 General: The patient appears well and in no apparent distress. Patient is resting comfortably in chair. Afebrile Skin: Warm, dry, no pallor noted. Head: Normocephalic, atraumatic Neck: No JVD Eye: PERRLA, EOMI ENT: Moist mucus membranes Cardiovascular: Regular rate normal peripheral perfusion. Radial pulse +2 bilaterally Respiratory: No respiratory distress no accessory muscle use no obvious audible wheezing Chest Wall: no deformity Musculoskeletal: normal ROM, no deformity, no swelling GI: No obvious distention soft nontender nondistended no guarding rebounding or rigidity Neurological: A&O moves all extremities equal strength and symmetry Psychiatric: Cooperative and appropriate Medical Decision Making MEDICAL DECISION MAKING Number and Complexity of Problems Differential Diagnosis: [] [facility] Data External documents reviewed: [] My EKG interpretation: [] My CT interpretation: [] My X-ray interpretation: [] My Ultrasound interpretation: [] Decision rules/scores evaluated: [] Discussed with: [] Treatment and Disposition ED Course: 27-year-old female reports to the emergency department chief complaint of nausea and vomiting. She is 19 weeks . She has not been able to keep anything down. Due to this, we did do lab work. Lab work reviewed and noted. No acute changes seen. Urinalysis was negative for any signs of UTI. Due to her symptoms, we did give her Reglan IV, as well as IV fluids. This helped with her nausea and vomiting. She was able to pass p.o. challenge here in the emergency department. Discussed follow-up with ENDOCRINOLOGY NURSE. Discussed return precautions. Follow-up with your primary care provider in 3 to 5 days. If symptoms worsen, do not improve, or new symptoms arise please report back to emergency department for further evaluation. The patient was understanding and agreeable to plan moving forward. Shared decision making: [] Code status: [] Assessment/Plan Vomiting during (O21.9: Vomiting of , unspecified) Orders: metoclopramide, 5 mg = 1 tab(s), Oral, q6hr, to use if zofran fails., X 7 day(s), # 20 tab(s), Refills(s) 0, Pharmacy: [facility], 158, cm, 02/22/23 12:17:00 EST, Height/Length Dosing, 87.3, kg, 02/22/23 12:17:00 EST, Weight Dosing ondansetron, 4 mg = 1 tab(s), Oral, q8hr, PRN Nausea/Vomiting, # 12 tab(s), Refills(s) 0, Pharmacy: [facility], 158, cm, 02/22/23 12:17:00 EST, Height/Length Dosing, 87.3, kg, 02/22/23 12:17:00 EST, Weight Dosing ondansetron, 4 mg = 2 mL, Injection, IV Push, Once, Stop date 02/22/23 12:38:00 EST, STAT, Start date 02/22/23 12:38:00 EST, 02/22/23 12:38:00 EST Sodium Chloride 0.9% intravenous solution, 1,000 mL, Soln-IV, IV, Once, Stop date 02/22/23 12:38:00 EST, STAT, Start date 02/22/23 12:38:00 EST, Infuse over 61, minute(s) Medications Administered Given NS 1000 ml Bolus, 1000 mL, IV Zofran 4 mg/2 mL Injection, 4 mg, IV Push Disposition Plan Patient Discharge Condition Stable Discharge Disposition To home Discharge Prescription List Prescriptions Reglan 5 mg Tab, 5 mg= 1 tab(s), Oral, q6hr Zofran ODT 4 mg Tab-Dis, 4 mg= 1 tab(s), Oral, q8hr, PRN Follow-up With When Contact Information Joce DAVIDSON In 3 days 02/25/[address] , [place] [address]- Business (1) Additional Instructions: JUSTIN MAX In 3 days 02/25/2023 EST [address] [facility] [address] [place] [address]- Business (1) Additional Instructions: Follow-up with your primary care provider in 3 to 5 days. If symptoms worsen, do not improve, (more content not included)... Normal [facility] Comment on above: Result Comment: Elec tronically Signed By: Dmitry Werner PA-C\.br\Date and Time Signed: 02/22/23 14:50 EST\.br\Electronically Co-Signed By: Alex Modi, Rodney Wood\.br\Date and Time Co-Signed: 02/22/23 16:24 EST ED Patient Education Noteon 02-22-2023 ED Patient Education Note Normal [facility] ED Patient Summaryon 023 ED Patient Summary (Inserted Image. Laureen ble to display) [address] [address] Patient Discharge Instructions Person Information Name: BERENICE SANTOS Age: 27 Years Arrival Date: 02/22/2023 11:54:35 Discharge Diagnosis: Vomiting during Primary Care Physician: JUSTIN MAX DO Provider Information Primary Provider: Rodney Johnson M.D. Advanced Driller Machine:None The exam and treatment you received in the Emergency Department were for an urgent problem and are not intended as complete care. It is important that you follow up with a doctor, nurse practitioner, or physician?s assistant women's basketball coach for ongoing care. If your symptoms become worse or you do not improve as expected and you are unable to reach your usual health care provider, you should return to the Emergency Department. We are available 24 hours a day. BERENICE SANTOS has been given the following list of patient education materials, prescriptions and follow-up instructions: Follow-up Instructions: With: Address: When: Joce DAVIDSON [facility], [address] [place] [address] [place] [address] Business (1) In 3 days 02/25/2023 With: Address: When: JUSTIN MAX [address] [facility] [address] [place] [address] Business (1) In 3 days 02/25/2023 Comments: Follow-up with your primary care provider in 3 to 5 days. If symptoms worsen, do not improve, or new symptoms arise please report back to emergency department for further evaluation. In the event that this physician does not participate in your insurance network, please consult with your insurance company to find a nearby participating provider. Patient Education Materials: A MESSAGE TO ALL PATIENTS REGARDING OPIOIDS PRESCRIPTION OPIOIDS: WHAT YOU NEED TO KNOW Prescription opioids can be used to help relieve dclrvqod-id-klgoby pain and are often prescribed following a surgery or injury, or for certain health conditions. These medications can be an important part of the treatment but also come with serious risks. It is important to work with your healthcare provider to make sure you are getting the safest, most effective care. WHAT ARE THE RISKS AND SIDE EFFECTS OF OPIOID USE? Prescription opioids carry serious risks of addiction and overdose, especially with prolonged use. An opioid overdose, often marked by slowed breathing, can cause sudden . The use of prescription opioids can have a number of side effects as well, even when taken as directed: ? Tolerance?meaning you might need to take more of the medication for the same pain relief ? Physical dependence?meaning you have symptoms of withdrawal when a medication is stopped ? Increased sensitivity to pain ? Constipation ? Nausea, vomiting, and dry mouth ? Sleepiness and dizziness ? Confusion ? Depression ? Low levels of testosterone that can result in lower sex drive, energy, and strength ? Itching and sweating RISKS ARE GREATER WITH: ? History of drug misuse, substance use disorder, or overdose ? Mental health conditions (such as depression or anxiety) ? Sleep apnea ? Older age (65 years and older) ? Avoid alcohol while taking prescription opioids. Also, unless specifically advised by your health care provider, medications to avoid include: ? Benzodiazepines (such as Xanax or Valium) ? Muscle relaxants (such as Soma or Flexeril) ? Hypnotics (such as Ambien or Lunesta) ? Other prescription opioids KNOW YOUR OPTIONS Talk to your health care provider about ways to manage your pain that don?t involve prescription opioids. Some of these options may actually work better and have fewer risks and side effects. Options may include: ? Pain relievers such as acetaminophen, ibuprofen, and naproxen ? Some medication that are also used for depression or seizures ? Physical therapy and exercise ? Cognitive behavioral therapy, a psychological, goal-directed approach, in which patients learn how to modify physical, behavioral, and emotional triggers of pain and stress. IF YOU ARE PRESCRIBED OPIOIDS FOR PAIN: ? Never take opioids in greater amounts or more often than prescribed. ? Follow up with your primary health care provider. o Work together to create a plan on how to manage your pain. o Talk about ways to help manage your pain that don?t involve prescription opioids. o Talk about any and all concerns and side effects. ? Help prevent misuse and abuse o Never sell or share prescription opioids. o Never use another person?s prescription opioids. ? Store prescription opioids in a secure place and out of reach of others (this may include visitors, children, friends, and family). ? Safely dispose of unused prescription opioids: Find your community drug take-back program or your pharmacy mail-back program, or flush them down the toilet, following guidance from the Food and Drug A (more content not included)... Normal [facility] HEMATOLOGYOrdered By: SYSTEM SYSTEM on 02-22-2023 Basophils/100 WBC (Bld) 0.5 % Normal 0.0 - 2.0 % [facility] HemeAutoSS Basophils/Leukocyt es Auto (Bld) [Pure # fraction] 0.0 E9/L Normal 0.0 - 0.2 E9/L [facility] HemeAutoSS Eosinophils/100 WBC (Bld) 1.8 % Normal 0.0 - 8.0 % [facility] HemeAutoSS Eosinophils/Leukoc ytes Auto (Bld) [Pure # fraction] 0.2 E9/L Normal 0.0 - 0.5 E9/L [facility] HemeAutoSS Lymphocytes/100 WBC (Bld) 19.0 % Normal 14.0 - 50.0 % [facility] HemeAutoSS Lymphocytes/Leukoc ytes Auto (Bld) [Pure # fraction] 1.6 E9/L Normal 1.0 - 4.0 E9/L [facility] HemeAutoSS Monocytes/100 WBC (Bld) 7.4 % Normal 4.0 - 14.0 % [facility] HemeAutoSS Monocytes/Leukocyt es Auto (Bld) [Pure # fraction] 0.6 E9/L Normal 0.2 - 1.0 E9/L [facility] HemeAutoSS Neutrophils/100 WBC (Bld) 71.3 % Normal 36.0 - 75.0 % [facility] HemeAutoSS Neutrophils/Leukoc ytes Auto (Bld) [Pure # fraction] 6.0 E9/L Normal 2.0 - 7.5 E9/L FT HemeAutoSS HEMATOLOGYOrdered By: Rachel hannah on 02-22-2023 Erythrocyte distribution width (RBC) [Ratio] 12.6 % Normal 10.9 - 14.2 % FT [facility] Hematocrit (Bld) [Volume fraction] 35.9 % Normal 34.0 - 46.0 % FT [facility] Hemoglobin (Bld) [Mass/Vol] 12.0 g/dL Normal 12.0 - 16.0 gm/dL FT [facility] MCH (RBC) [Entitic mass] 32.7 pg Normal 27.0 - 34.0 pg FT HemeAutoSS MCHC (RBC) [Mass/Vol] 33.4 g/dL Normal 31.4 - 36.0 gm/dL FT [facility]eAutoSS MCV (RBC) [Entitic vol] 97.8 fL Normal 80.0 - 100.0 fL FT [facility]eAuto[facility] Platelet mean volume (Bld) [Entitic vol] 7.9 fL Normal 6.4 - 10.8 fL FT HemeAutoSS Platelets (Bld) [#/Vol] 323.0 E9/L Normal 150.0 - 500.0 E9/L FT [facility]eAutoSS RBC (Bld) [#/Vol] 3.7 E12/L Low 4.3 - 5.9 E12/L FT [facility]eAuto[facility] WBC corrected for nucl RBC Auto (Bld) [#/Vol] 8.4 E9/L Normal 4.0 - 11.0 E9/L FT [facility]eAuto[facility] Hep Func Panelon 02-22-2023 Bilirubin.indirect [Mass or moles/Vol] UTC Abnormal 0.1-0.9 [facility] Comment on above: Result Comment: Resu lt verified by Discern Rule. Performed result UTC (Unable to Calculate) was sent as an Alpha code due the inability to calculate a valid numeric value. Performed By: #### 2 [id number], [id number], 6694723, [id number], 1411719, 9779422 ####[address] [place] [address] Albumin [Mass/Vol] 3.4 g/dL Normal 3.3-5.0 [facility] Comment on above: Performed By: #### 2 781905, 4776514, 2440454, 70452988, 9149505, 6480678 ####[facility] [address] [place] [address] Albumin/Globulin (S) [Mass conc ratio] 1.1 Normal 1.1-2.2 [facility] Comment on above: Performed By: #### 2 766199, 0282294, 3497384, 69384297, 8878217, 2873558 ####[address] [place] [address] ALP [Catalytic activity/Vol] 35 Int._Unit/L Normal 21-98 [facility] Comment on above: Performed By: #### 2 921087, 6088646, 8914115, 30073919, 6123422, 0677126 ####[address] [address] ALT No additional P-5'-P [Catalytic activity/Vol] 13 Int._Unit/L Normal 6-46 [facility] Comment on above: Performed By: #### 2 212758, 6784779, 4548620, 15975836, 2019379, 9750730 ####[address] [address] AST [Catalytic activity/Vol] 13 Int._Unit/L Normal 5-43 [facility] Comment on above: Performed By: #### 2 193771, 0018788, 8594501, 83133152, 2281665, 4852921 ####[facility] [address] [place] [address] Bilirubin [Mass/Vol] 0.2 mg/dL Normal 0.0-1.1 [facility] Comment on above: Performed By: #### 2 052206, 5560698, 5936212, 25233171, 4073338, 7312069 ####[address] [place] [address] Globulin (S) [Mass/Vol] 3.2 g/dL Normal 1.4-4.0 [facility] Comment on above: Performed By: #### 2 909950, 8503961, 8026031, 88001501, 3173194, 9478004 ####[facility] [address] [place] [address] Protein [Mass/Vol] 6.6 g/dL Normal 6.0-7.8 [facility] Comment on above: Performed By: #### 2 845538, 0084496, 1605541, 38626396, 3475436, 4019324 ####[facility] [address] [place] [address] Bilirubin.direct [Mass/Vol] mg/dL Normal 0.1-0.4 [facility] Comment on above: Performed By: #### 2 629993, 3673839, 8690970, 84821499, 8106030, 8865665 ####[facility] [address] [place] [address] Lipase Levelon 02-22-2023 Lipase [Catalytic activity/Vol] 25 U/L Normal 13-58 [facility] Comment on above: Performed By: #### 2 883033, 2743493, 8131429, 04176458, 7780612, 7111292 ####[facility] [address] [place] [address] UA With Cult Reflexon 2022 Bacteria LM Ql (Urine sed) TRACE Normal Trace [facility] Comment on above: Performed By: #### 2 191431, [id number] #### [facility] [address] [place] [address] Bilirubin Ql (U) Negative Normal Negative [facility] Comment on above: Performed By: #### 2 225106, [id number] #### [facility] [address] [place] [address] Clarity (U) CLEAR Normal Clear [facility] Comment on above: Performed By: #### 2 093207, [id number] #### [facility] [address] [place] [address] Color (U) YELLOW Normal Yellow [facility] Comment on above: Performed By: #### 2 823926, [id number] #### [facility] [address] [place] [address] Crystals LM Ql (Urine sed) Present Normal [facility] Comment on above: Performed By: #### 2 437567, [id number] #### [facility] [address] [place] [address] Epithelial cells.squamous LM.HPF (Urine sed) [#/Area] 5-8 Normal 0-2 [facility] Comment on above: Performed By: #### 2 520714, [id number] #### [facility] [address] [place] [address] Glucose Test strip (U) [Mass/Vol] Negative Normal Negative [facility] Comment on above: Performed By: #### 2 007123, [id number] #### [facility] [address] [place] [address] Hemoglobin Ql (U) Negative Normal Negative [facility] Comment on above: Performed By: #### 2 876435, [id number] #### [facility] [address] [place] [address] Ketones (U) [Mass/Vol] 3+ Abnormal Negative [facility] Comment on above: Performed By: #### 2 425614, 48364489 #### [facility] [address] [place] [address] [place].plasma/Lit hium.RBC (Bld) [Mass ratio] 0-3 Normal 0-3 [facility] Comment on above: Performed By: #### 2 701349, 19374601 #### [facility] [address] [place] [address] Mucus Ql (Urine sed) TRACE Normal [facility] Comment on above: Performed By: #### 2 044499, 96880386 #### [facility] [address] [place] [address] Nitrite Ql (U) Negative Normal Negative [facility] Comment on above: Performed By: #### 2 350853, [id number] #### [facility] [address] [place] [address] pH (U) 7.0 [pH] Invalid Interpretation Code 5.0-9.0 [facility] Comment on above: Performed By: #### 2 906018, [id number] #### [facility] [address] [place] [address] Protein (U) [Mass/Vol] Negative Normal Negative [facility] Comment on above: Performed By: #### 2 354786, [id number] #### [facility] [address] [place] [address] Specific gravity (U) [Rel density] 1.015 Invalid Interpretation Code 1.005-1.030 [facility] Comment on above: Performed By: #### 2 643207, [id number] #### [facility] [address] [place] [address] Type of Urine collection method Clean Catch Normal [facility] Comment on above: Performed By: #### 2 242833, [id number] #### [facility] [address] [place] [address] Urobilinogen Qn (U) 0.2 {Chiara'U}/dL Normal 0.0-1.0 [facility] Comment on above: Performed By: #### 2 723851, 61758848 #### [facility] [address] [place] [address] WBC Auto Ql (U) 1+ Abnormal Negative [facility] Comment on above: Performed By: #### 2 896389, [id number] #### [facility] [address] [place] [address] WBC LM.HPF (Urine sed) [#/Area] 0-5 Normal 0-5 [facility] Comment on above: Performed By: #### 2 875751, [id number] #### [facility] [address] [place] [address] URINALYSISOrdered By: Hilda Yeh on 02-22-2023 Bacteria LM Ql (Urine sed) Trace /HPF Normal Trace/HPF [facility] UA Auto SS Bilirubin Ql (U) Negative (02/22/23 12:21 PM) Normal Negative [facility] UA Auto SS Clarity (U) Clear (02/22/23 12:21 PM) Normal Clear [facility] UA Auto SS Color (U) Yellow (02/22/23 12:21 PM) Normal Yellow [facility] UA Auto SS Crystals LM Ql (Urine sed) Present (02/22/23 12:21 PM) Normal [facility] UA Auto SS Epithelial cells.squamous LM.HPF (Urine sed) [#/Area] 5-8 /HPF Normal 0-2/HPF [facility] UA Auto SS Glucose Test strip (U) [Mass/Vol] Negative (02/22/23 12:21 PM) Normal Negative [facility] UA Auto SS Hemoglobin Ql (U) Negative (02/22/23 12:21 PM) Normal Negative [facility] UA Auto SS Ketones (U) [Mass/Vol] 3+ *ABN* (02/22/23 12:21 PM) Invalid Interpretation Code Negative [facility] UA Auto SS [place].plasma/Lit hium.RBC (Bld) [Mass ratio] 0-3 /HPF Normal 0-3/HPF [facility] UA Auto SS Mucus Ql (Urine sed) Trace (02/22/23 12:21 PM) Normal [facility] UA Auto SS Nitrite Ql (U) Negative (02/22/23 12:21 PM) Normal Negative [facility] UA Auto SS pH (U) 7.0 *NA* (02/22/23 12:21 PM) Invalid Interpretation Code 5.0 - 9.0 [facility] UA Auto SS Protein (U) [Mass/Vol] Negative (02/22/23 12:21 PM) Normal Negative [facility] UA Auto SS Specific gravity (U) [Rel density] 1.015 *NA* (02/22/23 12:21 PM) Invalid Interpretation Code 1.005 - 1.030 [facility] UA Auto SS UA Spec Desc Clean Catch (02/22/23 12:21 PM) Normal [facility] UA Auto SS Urobilinogen Qn (U) 0.5064226 {Chiara'U}/dL Normal 0.0 - 1.0 EU/dL [facility] UA Auto SS WBC Auto Ql (U) 1+ *ABN* (02/22/23 12:21 PM) Invalid Interpretation Code Negative [facility] UA Auto SS WBC LM.HPF (Urine sed) [#/Area] 0-5 /HPF Normal 0-5/HPF [facility] UA Auto SS eGFRon 02-22-2023 GFR/1.73 sq M.predicted among non-blacks MDRD (S/P/Bld) [Vol rate/Area] 130 mL/min/1.73 m2 Normal >=59 [facility] Comment on above: Order Comment: Order added by Discern Expert. Result Comment: Mobile Solutions Architect juan pablo kidney disease could be indicated at eGFR's of less than 60 mL/min/1.73m2. Kidney failure is indicated at less than 15 mL/min/1.73m2. Performed By: #### 2 636570, 4294512, 6153052, 96937756, 4704707, 7403909 ####[facility] [address] [place] [address] Reminderson 11-16-2022 Reminders - From: Olena Resendez CNP To: Shayy Dubon; Sent: 11/09/2022 13:40:58 EDT Show up: 11/09/2022 13:41:00 EDT Subject: Ambulatory Reminder Reminder/Recall Colonoscopy [place] [address] Hawkins. 10/17/[address] hawkins From: Shayy Dubon To: [facility] - Reminders/Recalls; Sent: 11/16/2022 14:37:40 EDT ! Show up: 09/15/2032 14:37:00 EDT Due Date/Time: 10/15/2032 14:37:00 EDT Normal [facility] Insurance Correspondenceon 0 11-14-2022 Insurance Correspondence [id number]:12 7 Normal [facility] Consent for Procedure/Surger yon 11-10-2022 Consent for Procedure/Surgery [id number]:1 [address] [facility] Ambulatory Visit Summaryon 0 11-09-2022 Ambulatory Visit Summary BERENICE SANTOS :1995 Visit Date:11/09/2022 Ambulatory Visit Instructions Your Diagnosis Antral ulcer Hemorrhoids Acid reflux Hard stool Nausea and vomiting Family history of colonic polyps Your Care Team Attending Physician - Olena Resendez CNP Primary Care Physician - JUSTIN MAX DO This Is Your Medications List Contact prescribing physician if questions or concerns aripiprazole (aripiprazole 5 mg Tab) cyclobenzaprine (cyclobenzaprine 10 mg Tab) escitalopram (Lexapro 10 mg Tab) meloxicam (meloxicam 15 mg Tab) montelukast (Singulair 10 mg Tab) omeprazole (omeprazole 40 mg Cap-DR) omeprazole (omeprazole 40 mg Cap-DR) ondansetron (Zofran ODT 4 mg Tab-Dis) phentermine (phentermine 37.5 mg Tab) tramadol ubrogepant (Ubrelvy 100 mg oral tablet) [Image Removed: STOP]Stop taking these medications esomeprazole (Nexium) Procedures Performed Colonoscopy (09/26/2022), EGD (esophagogastroduodenosco py) and closure of duodenal fistula (09/26/2022), None. Discharge Vitals Temperature (Temporal Artery) 36.5 ?C Heart Rate (Peripheral) 111 Blood Pressure 104/69 Height 158 cm Height 62 in Weight 76.2 kg Weight 167.64 lb BMI 30.52 What to do next You Need to Schedule the Following Appointments Follow Up with Olena Resendez CNP When: Within 1 month Where: Medications What How Much When Instructions Unchanged aripiprazole (aripiprazole 5 mg Tab) Contact prescribing physician if questions or concerns Unchanged cyclobenzaprine (cyclobenzaprine 10 mg Tab) Contact prescribing physician if questions or concerns Unchanged escitalopram (Lexapro 10 mg Tab) 1 Tablets By Mouth Every day Contact prescribing physician if questions or concerns Unchanged meloxicam (meloxicam 15 mg Tab) Contact prescribing physician if questions or concerns Unchanged montelukast (Singulair 10 mg Tab) 1 Tablets By Mouth Every day Contact prescribing physician if questions or concerns Unchanged omeprazole (omeprazole 40 mg Cap-DR) 1 Capsules By Mouth Every day Contact prescribing physician if questions or concerns Unchanged omeprazole (omeprazole 40 mg Cap-DR) 1 Capsules By Mouth Every day Contact prescribing physician if questions or concerns Unchanged ondansetron (Zofran ODT 4 mg Tab-Dis) 1 Tablets By Mouth Every 8 hours as needed for Nausea/Vomiting Contact prescribing physician if questions or concerns Unchanged phentermine (phentermine 37.5 mg Tab) Contact prescribing physician if questions or concerns Unchanged tramadol 50 Milligram By Mouth Every 12 hours as needed for Other (see comment) Contact prescribing physician if questions or concerns Unchanged ubrogepant (Ubrelvy 100 mg oral tablet) Contact prescribing physician if questions or concerns What When Comments Stop Taking esomeprazole (Nexium) Every day Allergies Zithromax Z-Sixto (Rash, Itching) codeine (Rash) Problems Ongoing - Any problem that you are currently receiving treatment for. Acid reflux Antral ulcer BMI 31.0-31.9,adult Cholelithiasis Chronic midline low back pain with sciatica Family history of colonic polyps Hard stool Hemorrhoids Nausea and vomiting Smoker Trochanteric bursitis of left hip Historical - Any problem that you are no longer receiving treatment for. Blood in stool DDD (degenerative disc disease), cervical Epigastric pain Rectal bleeding [employer] Peptic Ulcer A peptic ulcer is a sore in the lining of the stomach (gastric ulcer) or the first part of the small intestine (duodenal ulcer). The ulcer causes a gradual wearing away (erosion) of the deeper tissue. What are the causes? Normally, the lining of the stomach and the small intestine protects them from the acid that digests food. The protective lining can be damaged by: ? An infection caused by a type of bacteria called Helicobacter pylori or H. pylori. ? Regular use of NSAIDs, such as ibuprofen or aspirin. ? Rare tumors in the stomach, small intestine, or pancreas (Puma?Dutta syndrome). What increases the risk? The following factors may make you more likely to develop this condition: ? Smoking. ? Having a family history of ulcer disease. ? Drinking alcohol. ? Having been hospitalized in an intensive care unit (ICU). What are the signs or symptoms? Symptoms of this condition include: ? Persistent burning pain in the area between the chest and the belly button. The pain may be worse on an empty stomach and at night. ? Heartburn. ? Nausea and vomiting. ? Bloating. If the ulcer results in bleeding, it can cause: ? Black, tarry stools. ? Vomiting of bright red blood. ? Vomiting of material that looks like coffee grounds. How is this diagnosed? This condition may be diagnosed based on: ? Your medical history and a physical exam. ? Various tests or procedures, such a (more content not included)... Normal [facility] Gastroenterology Office/Clin ic Noteon 11-09-2022 Gastroenterology Office/Clinic Note Chief Complaint Nausea and vomiting improved. HPI Staff Patient is a 27 year old female here today to review results from EGD and colonoscopy. History of Present Illness Patient is a 27-year-old female who presents for follow-up from EGD/colonoscopy completed 09/26/[address] Hawkins. Patient was previously evaluated 07/2022 for further evaluation abdominal pain and bloody stools. Patient had been previously evaluated by Dr. Hawkins 07/2021 for positive Hemoccult stool. Previous labs 03/2022 revealed normal CBC, unremarkable CMP, normal lipase. Patient had been previously ordered colonoscopy, sed rate and CRP that were not done. Patient had reported during visit with me that she was having epigastric pain described as stabbing over the last 3 months with associated nausea and vomiting. She indicated she was taking Nexium 20 mg daily that was controlling her acid reflux. She reported having rectal bleeding that was bright red in color that started 03/2022 and had resolved after she went to ER. She reported over the last month that her Lexapro was increased by another provider and was previously started on Adipex and Aloxi cam. Patient was ordered CBC/CMP, ultrasound of gallbladder, and EGD/colonoscopy. No recent labs available to review during today's encounter. Was previously evaluated in the [place] [facility] [place] and note indicated patient with blood in stool and was to have EGD/colonoscopy previously however, patient indicated per ED note that she did not have any more episodes of GI bleeding and did not complete EGD/colonoscopy. Note from ED also indicated patient with nausea and denied abdominal pain. Note indicated patient's H&H was stable and indicated patient likely had a vasovagal episode. Ultrasound of gallbladder 07/29/2022 revealed cholelithiasis?patient was referred to general surgery regarding. Patient was evaluated by general surgery 08/05/2022 and note indicated for patient to proceed with the EGD/colonoscopy. EGD completed 09/26/2022 revealed normal esophagus, multiple superficial clean-based ulcers in antrum with moderate gastric erosions, stomach biopsy revealed foveolar hyperplasia, mild chronic inflammation, negative for H. pylori, EGD also revealed normal duodenum. Patient was advised to avoid NSAIDs and alcohol. Patient was started on omeprazole 40 mg daily for 8 weeks. Colonoscopy completed 09/26/2022 revealed hemorrhoids and is due for repeat colonoscopy in [address] Hawkins. FH colon polyps- patient's maternal grandmother- reports were not precancerous that she can recall. During today's visit, patient reports she is feeling better. Patient reports she is no longer taking meloxicam for the last 3 months. Patient reports she is no longer having abdominal pain. She reports acid reflux is well-controlled with omeprazole 40mg daily. She explains nausea/vomiting has improved and is now occurring rarely. Is having hard stools that are painful to expel at times. Is currently having 1 BM every other day. She does not drink much water. Explains she drinks a lot of tea. Denies use of fiber supplementation. Denies black/bloody stools, rectal bleeding, fevers/chills, and denies having any other GI complaints. Review of Systems ROS - Provider Constitutional: no fever, no chills. Skin: no Jaundice. ENMT: Denies dysphagia. Yes acid reflux. Respiratory: no shortness of breath. Cardiovascular: no chest pain. Gastrointestinal: yes nausea, yes vomiting, no diarrhea, no GI bleeding. Physical Exam Vitals & Measurements T: 36.5 ?C(Temporal Artery) HR: 111(Peripheral) BP: 104/69 HT: 62 in HT: 158 cm WT: 76.2 kg WT: 167.64 lb BMI: 30.52 General: Well developed, well nourished, in no acute distress Head: Normocephalic/atraumatic Lungs: Normal respiratory effort and clear to auscultation Cardio: Regular rate and rhythm, normal S1 and S2, no murmur, no rub Abdomen: Soft, non-distended, non-tender. Normoactive bowel sounds present in all 4 abdominal quadrants, bilaterally. Mental Status: Alert and oriented x3. Normal mood and affect Assessment/Plan 1. Antral ulcer (K25.9: Gastric ulcer, unspecified as acute or chronic, without hemorrhage or perforation) EGD completed 09/26/2022 revealed normal esophagus, multiple superficial clean-based ulcers in antrum with moderate gastric erosions, stomach biopsy revealed foveolar hyperplasia, mild chronic inflammation, negative for H. pylori, EGD also revealed normal duodenum. Patient to have repeat EGD in 8 weeks to evaluate for healing of stomach ulcers. Ordered repeat EGD for 11/2022. Continue omeprazole 40mg daily. Avoid NSAIDs and ETOH. Ordered: EGD Endoscopy (Hospital Procedure) 2. Hemorrhoids (K64.9: Unspecified hemorrhoids) Colonoscopy completed 09/26/2022 revealed hemorrhoids and is due for repeat colonoscopy in 2032. Educated regarding fiber supplementation daily. 3. Acid reflux (K21.9: Gastro-esophageal reflux disease without esophagitis) Improved. EGD completed 09/26/2022 reveal (more content not included)... Normal [facility] Comment on above: Result Comment: Elec tronically Signed By: Olena Resendez CNP\.br\Date and Time Signed: 11/09/22 14:06 EDT Patient Educationon 11-10-19 Patient Education Gastroenterology Peptic Ulcer A peptic ulcer is a sore in the lining of the stomach (gastric ulcer) or the first part of the small intestine (duodenal ulcer). The ulcer causes a gradual wearing away (erosion) of the deeper tissue. What are the causes? Normally, the lining of the stomach and the small intestine protects them from the acid that digests food. The protective lining can be damaged by: ? An infection caused by a type of bacteria called Helicobacter pylori or H. pylori. ? Regular use of NSAIDs, such as ibuprofen or aspirin. ? Rare tumors in the stomach, small intestine, or pancreas (Puma?Dutta syndrome). What increases the risk? The following factors may make you more likely to develop this condition: ? Smoking. ? Having a family history of ulcer disease. ? Drinking alcohol. ? Having been hospitalized in an intensive care unit (ICU). What are the signs or symptoms? Symptoms of this condition include: ? Persistent burning pain in the area between the chest and the belly button. The pain may be worse on an empty stomach and at night. ? Heartburn. ? Nausea and vomiting. ? Bloating. If the ulcer results in bleeding, it can cause: ? Black, tarry stools. ? Vomiting of bright red blood. ? Vomiting of material that looks like coffee grounds. How is this diagnosed? This condition may be diagnosed based on: ? Your medical history and a physical exam. ? Various tests or procedures, such as: ? Upper endoscopy. The health care provider examines the esophagus, stomach, and small intestine using a small flexible tube that has a video camera at the end. ? Blood tests, stool tests, or breath tests to check for the H. pylori bacteria. ? An X-ray exam (upper gastrointestinal series) of the esophagus, stomach, and small intestine. ? A biopsy to help find certain causes of ulcers. A tissue sample is removed during upper endoscopy to be examined under a microscope. How is this treated? Treatment for this condition may include: ? Eliminating the cause of the ulcer, such as smoking or use of NSAIDs, and limiting alcohol and caffeine intake. ? Medicines to reduce the amount of acid in your digestive tract. ? Antibiotic medicines, if the ulcer is caused by an H. pylori infection. ? An upper endoscopy may be used to treat a bleeding ulcer. ? Surgery. This may be needed if the bleeding is severe or if the ulcer created a hole somewhere in the digestive system. Follow these instructions at home: ? Do not drink alcohol if your health care provider tells you not to drink. ? Do not use any products that contain nicotine or tobacco. These products include cigarettes, chewing tobacco, and vaping devices, such as e-cigarettes. If you need help quitting, ask your health care provider. ? Take bhwd-jhi-eihkdea and prescription medicines only as told by your health care provider. ? Do not use rbgs-mpj-koeeagq medicines in place of prescription medicines unless your health care provider approves. ? Do not take aspirin, ibuprofen, or other NSAIDs unless your health care provider tells you to. ? Keep all follow-up visits. This is important. Contact a health care provider if: ? Your symptoms do not improve within 7 days of starting treatment. ? You have ongoing indigestion or heartburn. Get help right away if: ? You have sudden, sharp, or persistent pain in your abdomen. ? You have bloody or dark black, tarry stools. ? You vomit blood or material that looks like coffee grounds. ? You become light-headed or you feel faint. ? You become weak. ? You become sweaty or clammy. These symptoms may be an emergency. Get help right away. Call 911. ? Do not wait to see if the symptoms will go away. ? Do not drive yourself to the hospital. Summary ? A peptic ulcer is a sore in the lining of the stomach (gastric ulcer) or the first part of the small intestine (duodenal ulcer). The ulcer causes a gradual wearing away (erosion) of the deeper tissue. ? Do not use any products that contain nicotine or tobacco. These products include cigarettes, chewing tobacco, and vaping devices, such as e-cigarettes. If you need help quitting, ask your health care provider. ? Take auhy-wrn-lgcnjri and prescription medicines only as told by your health care provider. Do not use kwsx-jck-ijlhtny medicines in place of prescription medicines unless your health care provider approves. ? Limit your alcohol and caffeine intake. ? Keep all follow-up visits. This is important. This information is not intended to replace advice given to you by your health care provider. Make sure you discuss any questions you have with your health care provider. Document Revised: 11/12/2021 Document Reviewed: 11/12/2021 [employer] Patient Education ? 2022 [employer]. [facility] Postoperative Documentson Postoperative Documents [id number]:1 27 [facility] IntraOperative Documentson 0 10-07-2022 IntraOperative Documents [id number]#1.00CD:1 27 [facility] XR thoracic spine 2Von 10-06 XR thoracic spine [address]V [facility] [address] [address] XRay Report Signed Patient: Berenice Santos MR#: [id number] : 1995 Acct:[id number] Age/Sex: 27 / F ADM Date: 10/06/22 Loc: [facility] – [place] Room: Type: REG CLI Attending Dr: William Payne MD Copies to: William Payne MD Ordering Provider: William Payne MD Date of Service: 10/06/22 XR/XR thoracic spine 2V: PAIN THORACIC SPINE - - 2 views CLINICAL HISTORY: Mid back pain for one month. COMPARISON: None FINDINGS: Pedicles appear intact. Vertebral bodies appear intact. No significant degenerative change or acute bony process. XR/XR thoracic spine 2V IMPRESSION: NO ACUTE BONY PROCESS. Impression dictated by: Jairo Lopez Jr., D.O.10/06/2022 4:48 PM Dictation Location: [place] [address] Transcribed By: [facility] 10/06/221647 Dictated By: Jairo Lopez Jr, DO 10/06/221647 Signed By: 10/06/221647 [facility] XR cerv spine AP/LAT/FLX/EXT on 10-05-2022 XR cerv spine AP/LAT/FLX/EXT [facility] [place] [address] XRay Report Signed Patient: Berenice Santos MR#: [id number] : 1995 Acct:[id number] Age/Sex: 27 / F ADM Date: 10/05/22 Loc: XD250 Room: Type: [facility] CLI Attending Dr: William Payne MD Copies to: William Payne MD Ordering Provider: William Payne MD Date of Service: 10/05/22 XR/XR cerv spine AP/LAT/FLX/EXT: Cervical pain XR cerv spine AP/LAT/FLX/EXT 10/05/2022 10:38 AM SIGNS AND SYMPTOMS: Upper back pain with pain in the right scapula PROTOCOLS: Frontal, lateral, and flexion-extension views of the cervical spine COMPARISON: None FINDINGS: There is straightening of the normal cervical lordosis. There is no pathologic movement on flexion or extension. The prevertebral soft tissues are within normal limits. There is preservation of the vertebral body heights and intervertebral disc spaces. There is no fracture or destructive lesion. XR/XR cerv spine AP/LAT/FLX/EXT IMPRESSION: No fracture, subluxation, or pathologic movement. There is mild straightening of the normal cervical lordosis which may be positional or secondary to muscle spasm. Impression dictated by: Troy Canales M.D.10/05/2022 1:02 PM Dictation Location: [facility]07 Transcribed By: BERNIE 10/05/22 1302 Dictated By: Troy Canales II, MD 10/05/22 1259 Signed By: 10/05/22 1302 [facility] XR shoulder RT min 2V*on XR shoulder RT min 2V* [facility] [place] [address] [place] [address] XRay Report Signed Patient: Berenice Santos MR#: [id number] : 1995 Acct:[id number] Age/Sex: 27 / F ADM Date: 10/05/22 Loc: XD250 Room: Type: [facility] Attending Dr: William Payne MD Copies to: William Payne MD Ordering Provider: William Payne MD Date of Service: 10/05/22 XR/XR shoulder RT min 2V*: Right shoulder pain XR shoulder RT min 2V* 10/05/2022 10:38 AM SIGNS AND SYMPTOMS: Right shoulder pain PROTOCOL: Frontal, Grashey, and scapular Y views of the right shoulder COMPARISON: None FINDINGS: The acromioclavicular joint and glenohumeral joint is preserved. There is no evidence of fracture or dislocation. The visualized right hemithorax is grossly intact. XR/XR shoulder RT min 2V* IMPRESSION: No fracture, dislocation, or significant degenerative change. Impression dictated by: Troy Canales M.D.10/05/2022 1:04 PM Dictation Location: [facility] Transcribed By: BERNIE 10/05/22 1304 Dictated By: Troy Canales II, MD 10/05/22 130 Signed By: 10/05/22 130 [facility] [place] 09-28-2022 Consent [id number]:1 27 [facility] Discharge Instructionson Discharge Instructions [id number]#[id number]:1 27 [facility] Main OR Intraoperative Recor don 09-27-2022 Main OR Intraoperative Record IntraOp Document Type FT Summary Primary Physician: Roma HAWKINS MD Finalized Date/Time: 09/27/22 14:50:44 Pt. Name: BERENICE SANTOS David Hassan/Sex: 1995 Female Med Rec #: [id number] Physician: Roma HAWKINS MD Financial #: [id number] Pt. Type: O Room/Bed: Endo OP 05/18 Admit/Disch: 09/26/22 12:47:01 - 09/26/22 23:59:59 Institution: Case Times FT Entry 1 Patient Times In Room 09/26/22 13:25:00 Out Room 09/26/22 13:42:00 Procedure Times Start 09/26/22 13:27:00 Stop 09/26/22 13:39:00 Anesthesia Times Start 09/26/22 13:25:00 Stop 09/26/22 13:42:00 Time at [place] 09/26/22 13:34:00 Last Modified By: Mine COLEMAN, Darlyn Urias 09/26/22 13:43:02 General Comments: 1329 EGD completed /,RN 1331 Colonoscopy started /,RN 09/27/22 Chart opened to review and send charges [facility]oth CSFA Case Attendance FT Entry 1 Entry 2 Entry 3 Case Attendee Kamar Schmitt RN, Ruth Gaines Role Performed Anesthesiologist Cripple Cutter - Primary Scrub - Primary Block Making Machine Operator Time In 09/26/22 13:25:00 09/26/22 13:25:00 09/26/22 13:25:00 Time Out 09/26/22 13:42:00 09/26/22 13:42:00 09/26/22 13:42:00 Procedure EGD AND COLONOSCOPY(.) EGD AND COLONOSCOPY(.) EGD AND COLONOSCOPY(.) Comments Dr. Noel supervising case Last Modified By: Mine COLEMAN, Darlyn Blount RN, Darlyn Blount RN, Darlyn Uiras 09/26/22 13:43:03 F 09/26/22 13:43:03 F 09/26/22 13:43:03 Entry 4 Entry 5 Case Attendee Babar Wesley MD, Maher Role Performed Staff - Other Surgeon - Primary Time In 09/26/22 13:25:00 09/26/22 13:25:00 Time Out 09/26/22 13:42:00 09/26/22 13:42:00 Procedure EGD AND COLONOSCOPY(.) EGD AND COLONOSCOPY(.) Comments help in room Last Modified By: Mine RN, Darlyn Blount RN, Darlyn Urias 09/26/22 13:43:03 F 09/26/22 13:43:03 Perioperative Protocols FT Pre-Care Text: Implements protective measures prior to operative or invasive procedure, confirms identity before the operative or invasive procedure, verifies operative procedure, surgical site, and laterality Entry 1 Procedure(s) EGD AND COLONOSCOPY(.) Patient Identity Birthday, ID Band Verified (select at Check, Patient least 2): Participation Consents / H and P Anesthesia Consent, Operative Site N/A Verified HandP, Surgery/Procedure Marking Verified Consent Surgical Site No Laterality Verified n/a Verified Procedure Verified Yes Correct Patient Yes Position Verified Availability Equipment, Medication Prep Dry n/a Verified (If Applicable) PreOp Antibiotic No Time Out Kamar Schmitt Given Participants Mine Butler RN, Bill Zaman Kirstyn K, Sparks, Micala E, SALAM MD, Maher Time Out Complete 09/26/22 13:27:00 Outcomes Met? Yes Last Modified By: Darlyn Blount RN 09/26/22 13:27:45 Post-Care Text: The patient is free from signs and symptoms of injury caused by extraneous objects Allergy Information FT Pre-Care Text: Verifies allergies Entry 1 Allergies Reviewed? Yes Allergies Reviewed Self/Patient With Outcomes Met? Yes Last Modified By: Darlyn Blount RN 09/26/22 10:08:02 Post-Care Text: The patient received appropriate medication(s) safely administered during the perioperative period Surgical Procedures FT Entry 1 Procedure Description Procedure EGD AND COLONOSCOPY Modifiers . Surgeon Description EGD with gastric biopsy. Colonoscopy Primary Procedure Yes Primary Surgeon Roma HAWKINS MD Start 09/26/22 13:27:00 Stop 09/26/22 13:39:00 Anesthesia Type General Surgical Service Gastroenterology Wound Class 2 - Clean-Contaminated Last Modified By: Darlyn Blount RN 09/26/22 13:39:58 General Case Data FT Pre-Care Text: Classifies surgical wound, implements aseptic technique, initiates traffic control Entry 1 Case Information OR ENDO 1 FT Case Level Level 2 Wound Class 2 - Clean-Contaminated Specialty Gastroenterology ASA Class 2 Preop Diagnosis Blood in stool, Postop Same As Preop No epigastric pain, nausea and vomiting Postop Diagnosis EGD- gastric erosions, Outcomes Met? Yes antral ulcer. Colonoscopy- normal Last Modified By: Darlyn Blount RN 09/26/22 13:40:10 Post-Care Text: The patient is free from signs and symptoms of infection Skin Assessment (Pre Procedure) FT Pre-Care Text: Implements protective measures to prevent skin/ tissue injury due to thermal or mechanical sources Evaluates for signs and symptoms of physical injury to skin and tissue Entry 1 Skin Integrity Intact, [place], Warm, and Skin Abnormality No Dry Outcomes Met? Yes Last Modified By: Darlyn Blount RN 09/26/22 10:08:37 Post-Care Text: The patient is free from signs and symptoms of injury caused by extraneous objects Patient Positioning FT Pre-Care Text: Identifies physical alterations that require additional precautions for procedure-specific positioning, ara (more content not included)... Normal [facility] Main OR PACU I Recordon 09-15 Main OR PACU I Record PACU Phase I Document Type FT Summary Primary Physician: Roma HAWKINS MD Finalized Date/Time: 09/27/22 09:59:55 Pt. Name: BERENICE SANTOS/Sex: 1995 Female Med Rec #: [id number] Physician: Roma HAWKINS MD Financial #: [id number] Pt. Type: O Room/Bed: Endo OP 05/18 Admit/Disch: 09/26/22 12:47:01 - 09/26/22 23:59:59 Institution: Case Times PACU I FT Pre-Care Text: Identifies barriers to communication and implements measures to provide psychological support Develops individualized plan of care, and ensures continuity of care Maintains patient's dignity and privacy, and maintains patient confidentiality Identifies and reports philosophical, cultural, and spiritual beliefs and values Identifies individual values and wishes concerning care Implements aseptic technique, and administers prescribed antibiotic therapy and immunizing agents as ordered Evaluates postoperative tissue perfusion Implements thermoregulation measures, and monitors body temperature Evaluates postoperative respiratory status Evaluates postoperative cardiac status Evaluates postoperative neurological status Assesses pain control, collaborated in initiating patient-controlled analgesia and implements alternative methods of pain control Verifies allergies, administers prescribed medications and solutions, evaluates response to medications Entry 1 In PACU I 09/26/22 13:44:00 Discharge from PACU 09/26/22 14:25:00 I Outcomes Met? Yes Last Modified By: Roseline Mcbride RN 09/27/22 09:59:50 Post-Care Text: The patient demonstrates knowledge of the expected response to the operative or invasive procedure The patient's care is consistent with the individualized perioperative plan of care The patient's right to privacy is maintained The patient's value system, lifestyle, ethnicity, and culture are considered, respected, and incorporated into the perioperative plan of care The patient participates in decisions affecting his or her perioperative plan of care The patient is free from signs and symptoms of infection The patient has wound/tissue perfusion consistent with or improved from baseline levels established preoperatively The patient is at or returning to normothermia at the conclusion of the immediate postoperative period The patient's respiratory function is consistent with or improved from baseline levels established preoperatively The patient's cardiovascular status is consistent with or improved from baseline levels established preoperatively The patient's cardiovascular status is consistent with or improved from baseline levels established preoperatively The patient demonstrates and/or reports adequate pain control throughout the perioperative period The patient received appropriate medication(s), safely administered during the perioperative period Acuity Level PACU I FT Entry 1 Start Time 09/26/22 13:44:00 Stop Time 09/26/22 14:25:00 Acuity Level Acuity Level I Last Modified By: Roseline Mcbride RN 09/27/22 09:59:42 Finalized By: Roseline Mcbride RN Document Signatures Signed By: Roseilne Mcbride RN 09/27/22 09:59 [facility] Pre-Certification Formon Pre-Certification Form [id number]#1.00CD:12 7 [facility] Progress Note-Physicianon Progress Note-Physician Patient: BERENICE SANTOS Age: 27 years Sex: Female : 1995 Associated Diagnoses: None Author: Sam Noel Jr., DO Postoperative Information Postoperative disposition: Postoperative disposition: Home. Optimetrix number: Optimetrix number [id number]. Anesthetic utilized: General. Physical Examination Vital Signs 09/26/2022 14:25 EDT Heart Rate Monitored 97 bpm Respiratory Rate Monitored 16 br/min Systolic Blood Pressure 107 mmHg Diastolic Blood Pressure 57 mmHg LOW Blood Pressure Location Left arm SpO2 97 % 09/26/2022 14:10 EDT Heart Rate Monitored 98 bpm Respiratory Rate Monitored 20 br/min Systolic Blood Pressure 105 mmHg Diastolic Blood Pressure 65 mmHg Blood Pressure Location Left arm SpO2 97 % 09/26/2022 13:59 EDT Heart Rate Monitored 101 bpm HI Respiratory Rate Monitored 17 br/min Systolic Blood Pressure 99 mmHg Diastolic Blood Pressure 65 mmHg Blood Pressure Location Left arm SpO2 98 % 09/26/2022 13:54 EDT Heart Rate Monitored 81 bpm Respiratory Rate Monitored 20 br/min Systolic Blood Pressure 100 mmHg Diastolic Blood Pressure 54 mmHg LOW Blood Pressure Location Left arm SpO2 100 % 09/26/2022 13:49 EDT Heart Rate Monitored 86 bpm Respiratory Rate Monitored 10 br/min Systolic Blood Pressure 94 mmHg Diastolic Blood Pressure 61 mmHg Blood Pressure Location Left arm SpO2 100 % 09/26/2022 13:44 EDT Temperature Temporal Artery 36.4 DegC Heart Rate Monitored 97 bpm Respiratory Rate Monitored 15 br/min Systolic Blood Pressure 96 mmHg Diastolic Blood Pressure 61 mmHg Blood Pressure Location Left arm SpO2 99 % Pain Assessment: Controlled. General: Awake, Alert, Appropriate. Respiratory: Adequate air exchange, Non-labored. Cardiovascular: Stable, Normal peripheral perfusion. Neurological: Neurologic exam at baseline. No changes.. Assessment Anesthetic outcome No anesthetic complications noted. No nausea/vomiting. Review / Management Condition: Stable. Plan Transfer/Discharge: Transfer/Discharge Discharge when meets criteria ( From PACU to Ambulatory Surgery Unit, and To home ). [facility] Comment on above: Result Comment: Elec tronically Signed By: Sam Noel Jr., DO.br\Date and Time Signed: 09/27/22 06:50 EDT Consent for Treatmenton 09-15 Consent for Treatment [id number]#1.00CD:12 7 Normal [facility] Endoscopic Procedure Report - Otheron 09-26-2022 Endoscopic Procedure Report - Other Patient: BERENICE SANTOS Age: 27 years Sex: Female : 1995 Associated Diagnoses: None Author: Roma HAWKINS MD Pre-Procedure Procedure Date 09/26/2022 13:40:00 . Procedure Type: Colonoscopy. Procedure provider Performed by Roma Hawkins MD. Current history and physical Documented on chart. Colorectal neoplasm risk assessment Not applicable. Informed Consent After discussing the rationale, risks and benefits, and alternatives to this procedure, the patient provided signed consent for the procedure. Pre-procedure diagnosis: Rectal bleeding. Medications Anticoagulant/antiplatele t None. ASA Classification: Class II. . Monitoring: See anesthesia record. . Procedure The procedure was performed in the hospital. See anesthesia record for sedation given during procedure. Rectal exam was performed and was normal with no masses palpated, with no gross blood, with no fissure(s). The patient was positioned starting in the left lateral decubitus position and with safety measures. Endoscope type used was an adult-size. The endoscope was lubricated then introduced through the anus. The terminal ileum was photographed The ileocecal valve was photographed The appendiceal orifice was photographed The time to the cecum was 3 minutes The withdrawal time was 6 minutes No difficulties encountered during the procedure. The bowel preparation quality was adequate (see polyps greater than or equal to 6 millimeters). The patient tolerated the procedure well. Findings 1. Normal terminal ileum, photograph taken 2. Small nonbleeding internal hemorrhoids, otherwise normal colonoscopy Post-Procedure Complications: none. Estimated blood loss: none. Specimens: none. Devices/ implants: none left in place. Impression and Plan Impression: 1. Normal terminal ileum. 2. Small nonbleeding internal hemorrhoids, otherwise normal colonoscopy. Recommendations: Repeat colonoscopy:: In 10 years. Follow-up:: Clinic follow-up in 1-2 weeks. Diet:: Resume previous diet. Medication resumption:: Continue current medications. Return to activities:: After 24 hours. Normal [facility] Comment on above: Result Comment: Elec tronically Signed By: Roma HAWKINS MD\.br\Date and Time Signed: 09/26/22 13:40 EDT Endoscopic Procedure Report - Other Patient: BERENICE SANTOS Age: 27 years Sex: Female : 1995 Associated Diagnoses: None Author: Roma HAWKINS MD Pre-Procedure Procedure Date 09/26/2022 13:30:00 . Procedure Type: Esophagogastroduodenoscop y. Procedure provider Performed by Roma Hawkins MD. Current history and physical Documented on chart. Informed Consent After discussing the rationale, risks and benefits, and alternatives to this procedure, the patient provided signed consent for the procedure. Pre-procedure diagnosis: Epigastric pain. Medications Anticoagulant/antiplatele t No anticoagulation or antiplatelet. ASA Classification: Class II. . Monitoring: See anesthesia record. . Procedure The procedure was performed in the hospital. See anesthesia record for sedation given during procedure. The patient was positioned starting in the left lateral decubitus position and with safety measures. Endoscope type used was an adult-size, introduced orally, advanced to the 2nd portion of the duodenum. No difficulty was encountered during the procedure. Views were good. Gastric biopsies were taken of the fundus and of the antrum. The patient tolerated the procedure well. Findings 1. Normal esophagus, Z line at 40 cm 2. Multiple superficial clean-based antral ulcer with moderate gastric erosions, random biopsies obtained to rule out H. pylori 3. Normal duodenum Images Procedure images: Rec_hd_video__T [id number] Rec1_hd_video__T _[id number].jpg Rec_hd_video___[id number].jpg . Post-Procedure Complications: none. Estimated blood loss: none. Specimens: sent to pathology. Devices/ implants: none left in place. Impression and Plan Multiple superficial clean-based antral ulcer with moderate gastric erosions, random biopsies obtained to rule out H. pylori Recommendations: 1. Awaiting pathology report. 2. GI clinic follow-up in 2 weeks 3. Change Nexium to omeprazole 40 mg p.o. daily 4. Avoid NSAIDs and alcohol Normal [facility] Comment on above: Result Comment: Elec tronically Signed By: Roma HAWKINS MD\.br\Date and Time Signed: 09/26/22 13:30 EDT Other Comment: Phyllis jo Attachment - attachment storage system not supported [id number] Can be viewed in source systemMissing Attachment - attachment storage system not supported [id number] Can be viewed in source systemMissing Attachment - attachment storage system not supported [id number] Can be viewed in source system Main OR Preoperative Recordo n 09-26-2022 Main OR Preoperative Record Holding Area Document Type FT Summary Primary Physician: Roma HAWKINS MD Finalized Date/Time: 09/26/22 12:59:29 Pt. Name: BERENICE SANTOS/Sex: 1995 Female Med Rec #: [id number] Physician: Roma HAWKINS MD Financial #: [id number] Pt. Type: O Room/Bed: Endo OP 05/18 Admit/Disch: 09/26/22 12:47:01 - Institution: Case Times Holding FT Pre-Care Text: Verifies consent for planned procedure, identifies individual values and wishes concerning care, includes family members in perioperative teaching Secures patient's records' belongings, and valuables, maintains patient's dignity and privacy, and maintains patient confidentiality Entry 1 In Holding 09/26/22 12:57:00 Outcomes Met? Yes Last Modified By: Syed Chung RN 09/26/22 12:57:36 Post-Care Text: The patient participates in decisions affecting his or her perioperative plan of care The patient's right to privacy is maintained Surgery Checklist FT Entry 1 Patient Birthday, ID Band Procedure History and Physical, Identification: Check, Patient Verification: Surgical Consent, With Participation Patient NPO after Midnight: No Date/Time: 09/26/22 10:00:00 Results Reviewed clear- yellow liquid Personal Items clothing, shoes Comments: bowel results Comment: Limitations: none Complaints of Pain: No Pain Comment: pt denies any pain at Operative Site n/a this time Marking: Marked By: n/a Location: n/a Availability Equipment Verified: Does Patient Smoke Yes If Yes to Smoking. 1 pack per day Cigars or Cigarettes. How much per day? Patient states Yes Comment - Adult - Harshal postop adult Supervision supervision available Case Cancelled in No Holding Area see comments below for reason Last Modified By: Syed Chung RN 09/26/22 12:59:27 General Comments: pt finished bowel prep at 1000, per patient nothing to eat or drink since MSRN Finalized By: Syed Chung RN Document Signatures Signed By: Syed Chung RN 09/26/22 12:59 Normal [facility] Monitor Recordon 09-26-2022 Monitor Record [id number]#1.00CD:1 27 Normal [facility] Monitor Record [id number]#[id number]:1 27 Normal [facility] Progress Note-Physicianon Progress Note-Physician Patient: BERENICE SANTOS Age: 27 years Sex: Female : 1995 Associated Diagnoses: None Author: Sam Noel Jr., DO Preoperative Information Anesthesia history: Patient history: No prior anesthetic problems. Informed consent: Signed by patient. Re-evaluation prior to induction: Initial evaluation reviewed: No significant change. Review of Systems Respiratory: Negative except as documented in history of present illness. Cardiovascular: Negative except as documented in history of present illness. Health Status Allergies: Allergic Reactions (Selected) Severity Not Documented Zithromax Z-Sixto- Rash and itching., Allergies (1) Active Reaction Zithromax Z-Sixto Itching Current medications: (Selected) Inpatient Medications Ordered Lactated Ringers IV Whitney 1000 mL 1,000 mL: 1,000 mL, IV, 100 mL/hr, Routine, Start date 09/26/22 12:35:00 EDT, 10 hour(s), Total volume (mL): 1,000 Prescriptions Prescribed Sutab oral tablet: See Instructions, 1 EA, Refill(s) 0, Please follow instructions per packaging and physician's handout, [facility], 157, cm, 07/27/22 9:34:00 EDT, Height/Length Dosing, 76.7, kg, 07/27/22 9:34:00 EDT, Weight Dosing Zofran ODT 4 mg Tab-Dis: 4 mg = 1 tab(s), Oral, q8hr, PRN Nausea/Vomiting, # 12 tab(s), Refills(s) 0, Pharmacy: [id number], 157, cm, 03/23/22 13:50:00 EST, Height/Length Dosing, 80.1, kg, 03/23/22 13:50:00 EST, Weight Dosing Documented Medications Documented Lexapro 10 mg Tab: 10 mg = 1 tab(s), Oral, Daily, Refills(s) 0, Anxiety Nexium: Oral, Daily, Refills(s) 0, Control of stomach acid Singulair 10 mg Tab: 10 mg = 1 tab(s), Oral, Daily, Refills(s) 0, Allergy symptoms acetaminophen-codeine 300 mg-30 mg Tab: Refill(s) 0, Cough meloxicam 15 mg Tab: Refills(s) 0, Arthritis phentermine 37.5 mg Tab: Refills(s) 0, Home Medications (8) Active acetaminophen-codeine 300 mg-30 mg Tab Lexapro 10 mg Tab 10 mg = 1 tab(s), Oral, Daily meloxicam 15 mg Tab Nexium , Oral, Daily phentermine 37.5 mg Tab Singulair 10 mg Tab 10 mg = 1 tab(s), Oral, Daily Sutab oral tablet See Instructions Zofran ODT 4 mg Tab-Dis 4 mg = 1 tab(s), PRN, Oral, q8hr , Medications (1) Active Scheduled: (0) Continuous: (1) Lactated Ringers 1,000 mL 1,000 mL, IV, 100 mL/hr PRN: (0) Problem list: All Problems Blood in stool / SNOMED CT 2072874828 / Confirmed BMI 31.0-31.9,adult / SNOMED CT 387686135 / Confirmed Cholelithiasis / SNOMED CT 909062934 / Confirmed Chronic midline low back pain with sciatica / SNOMED CT 811059676 / Confirmed Epigastric pain / SNOMED CT 866062831 / Confirmed Family history of colonic polyps / SNOMED CT 7970526339 / Confirmed Nausea and vomiting / SNOMED CT 39422803 / Confirmed Rectal bleeding / SNOMED CT 396397381 / Confirmed Smoker / SNOMED CT 482374569 / Confirmed Added secondary to documentation in Social History. Trochanteric bursitis of left hip / SNOMED CT 66276571 / Confirmed Resolved: / SNOMED CT 047905060 Resolved: DDD (degenerative disc disease), cervical / SNOMED CT [id number] Canceled: Back pain / SNOMED CT 431395267 Canceled: Smoker / IMO [id number] Added secondary to documentation in Social History. Histories Past Medical History: Active Blood in stool ([id number]) Resolved ([id number]): Onset on 04/17/2012 at 16 years. Resolved on 12/27/2012 at 17 years. DDD (degenerative disc disease), cervical ([id number]): Resolved. Procedure history: None ([id number]). 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 Respiratory: Lungs are clear to auscultation, Respirations are non-labored. Cardiovascular: Regular rhythm. Plan [employer] [employer] (ASA) physical status classification: Class II. Anesthetic Preoperative Plan: Anesthesia General, and -TIVA. Normal [facility] Comment on above: Result Comment: Elec tronically Signed By: Sam Noel Jr., DO\Date and Time Signed: 09/26/22 12:37 EDT Pre-Certification Formon Pre-Certification Form [id number]:12 7 Normal [facility] General Surgery Office/Clini c Noteon 08-08-2022 General Surgery Office/Clinic Note Chief Complaint SAMPLE EXAMINER Cholelithiasis HPI Staff SAMPLE EXAMINER Berenice is a 27 y.o. female here for cholelithiasis Referred by Olena Resendez NP Patient presented to w/ epigastric pain and N/V Denies unintentional weight loss US GB done 07/29/2022. History of Present Illness Berenice Santos is a 26-year-old female who was referred by Olena Resendez CNP, for symptomatic gallstones found on ultrasound. She was seen most recently by Ms. Resendez on 07/27/2022, for evaluation of epigastric pain and bright red blood per rectum. The patient reported epigastric pain with associated nausea and vomiting that is stabbing in nature over the past 3 months from when she had seen Ms. Resendez. She denies family history of Crohn's or ulcerative colitis. She had been evaluated in the past by Dr. Hawkins in 07/2021, and in 03/2022, for bright red blood per rectum, which per Ms. Resendez's note has resolved since. The patient is scheduled to undergo an EGD and colonoscopy for evaluation of peptic ulcer disease and etiology of bright red blood per rectum. As part of her work-up, an ultrasound of the gallbladder was obtained showing gallstones with no secondary signs of cholecystitis. Berenice explains that she has had at least 2 minor episodes of bright red blood per rectum. The last time she had bright red blood was on 03/2022. There were a couple of times where she had some spotting, but it was not nearly as bad from her other episodes. She denies a history of hemorrhoids. She has a son who is 9 years old, turning 10 on 12/2022. She has had intermittent pain in her upper abdomen for over the last year or so. She thought she kept getting stomach bugs, and believed his son was exposing her from school. However, neither her child nor her was getting sick. In the last couple of months, there has been more of a pain going on. She describes the pain as a stabbing sensation. She has never had an ulcer, but the first time that she the pain started, she thought it was probably an ulcer. The pain worsens after eating. The nausea comes in spurts. When she gets sick, it is usually bad and anytime she tries to eat, it comes right back up. Even if she feels like she needs to eat, she can't keep eating. She takes Nexium daily because she started having heartburn after her stomach and it never went away. Most of the time, she takes Dramamine for the nausea, and it helps control her nausea for a couple of days; however, it does not help during her current episode. The pain does not wake her up at night. She just started Mobic on 07/19/2022, for back pain. She was diagnosed with degenerative disc disease when she was 14 years old, but it started at the age of [age] years old. In her MRI, they found osteoarthritis in her spine. Most of the pain is in her lower back. It has helped manage her pain in that area. She does not feel stabbing pain, but instead her entire body is sore. She also has bulging discs. When she eats greasy or fatty foods, she gets heartburn and acid reflux. She denies getting stabbing pains because she tends to stay away from fatty or greasy foods. She has an upper and lower endoscopy scheduled for 09/2022. She presents concern regarding kidney stones. She has pain in between her shoulders. Review of Systems Constitutional: no fever, no sweats, no weight loss. Eyes: no glasses, no blurred vision, no visual loss. ENMT: no dentures, no hoarseness, no swallowing difficulties, no hearing loss, no ear infection (s), no nose bleeds. Cardiovascular: normal blood pressure, no chest pain, regular heartbeat, no heart murmur. Respiratory: no shortness of breath, no cough, no wheezing, no asthma. Gastrointestinal: no nausea, no vomiting, no diarrhea, no constipation, no blood in stool, no change in bowel habits, no abdominal pain, no hepatitis. Genitourinary: no kidney stones, no urine infection, no difficulty passing urine. Musculoskeletal: no pain, no weakness. Skin: no changing moles, no rash, no skin lumps. Neurologic: no seizures, no epilepsy, no headache. Psychiatric: no emotional, no psychiatric problem. Endocrine: no thyroid, no diabetes. Heme/Lymph: no bleeding problems, no anemia, no blood clots, no transfusions. Allergy/Immunologic: no swollen lymph nodes/glands, no IV drug abuse. Other: Additional ROS info: Except as noted in the above Review of Systems and in the History of Present Illness, all other systems have been reviewed and are negative or noncontributory. Physical Exam Vitals & Measurements HR: 105(Peripheral) BP: 117/68 SpO2: 98% HT: 62 in HT: 157 cm WT: 75 kg WT: 165 lb BMI: 30.43 Vitals & Measurements General: No acute distress Respiratory: Unlabored breathing on room air Cardiac: Regular rate and rhythm Abdomen: Soft nontender nondistended Assessment/Plan 1. Cholelithiasis (K80.20: Calculus of gallbladder without cholecystitis without obstruction) The patient will proceed with the EGD and colonoscopy and follow up with us afterwards should p (more content not included)... Normal [facility] Comment on above: Result Comment: Elec tronically Signed By: Román Dominguez MD\.br\Date and Time Signed: 08/08/22 12:48 EDT\.br\Electronically Co-Signed By: Jolanta Campos\.br\Date and Time Co-Signed: 08/05/22 10:58 EDT Patient Educationon 08-06-19 Patient Education Gastroenterology Obesity, Adult Obesity is the condition of having too much total body fat. Being overweight or obese means that your weight is greater than what is considered healthy for your body size. Obesity is determined by a measurement called BMI (body mass index). BMI is an estimate of body fat and is calculated from height and weight. For adults, a BMI of 30 or higher is considered obese. Obesity can lead to other health concerns and major illnesses, including: ? Stroke. ? Coronary artery disease (CAD). ? Type 2 diabetes. ? Some types of cancer, including cancers of the colon, breast, uterus, and gallbladder. ? High blood pressure (hypertension). ? High cholesterol. ? Gallbladder stones. Obesity can also contribute to: ? Osteoarthritis. ? Sleep apnea. ? Infertility problems. What are the causes? Common causes of this condition include: ? Eating daily meals that are high in calories, sugar, and fat. ? Drinking high amounts of sugar-sweetened beverages, such as soft drinks. ? Being born with genes that may make you more likely to become obese. ? Having a medical condition that causes obesity, including: ? Hypothyroidism. ? Polycystic ovarian syndrome (PCOS). ? Binge-eating disorder. ? Leon syndrome. ? Taking certain medicines, such as steroids, antidepressants, and seizure medicines. ? Not being physically active (sedentary lifestyle). ? Not getting enough sleep. What increases the risk? The following factors may make you more likely to develop this condition: ? Having a family history of obesity. ? Living in an area with limited access to: ? [place], recreation centers, or sidewalks. ? Healthy food choices, such as grocery stores and [employer]. What are the signs or symptoms? The main sign of this condition is having too much body fat. How is this diagnosed? This condition is diagnosed based on: ? Your BMI. If you are an adult with a BMI of 30 or higher, you are considered obese. ? Your waist circumference. This measures the distance around your waistline. ? Your skinfold thickness. Your health care provider may gently pinch a fold of your skin and measure it. You may have other tests to check for underlying conditions. How is this treated? Treatment for this condition often includes changing your lifestyle. Treatment may include some or all of the following: ? Dietary changes. This may include developing a healthy meal plan. ? Regular physical activity. This may include activity that causes your heart to beat faster (aerobic exercise) and strength training. Work with your health care provider to design an exercise program that works for you. ? Medicine to help you lose weight if you are unable to lose one pound a week after six weeks of healthy eating and more physical activity. ? Treating conditions that cause the obesity (underlying conditions). ? Surgery. Surgical options may include gastric banding and gastric bypass. Surgery may be done if: ? Other treatments have not helped to improve your condition. ? You have a BMI of 40 or higher. ? You have life-threatening health problems related to obesity. Follow these instructions at home: Eating and drinking ? Follow recommendations from your health care provider about what you eat and drink. Your health care provider may advise you to: ? Limit fast food, sweets, and processed snack foods. ? Choose low-fat options, such as low-fat milk instead of whole milk. ? Eat five or more servings of fruits or vegetables every day. ? Choose healthy foods when you eat out. ? Keep low-fat snacks available. ? Limit sugary drinks, such as soda, fruit juice, sweetened iced tea, and flavored milk. ? Drink enough water to keep your urine pale yellow. ? Do not follow a fad diet. Fad diets can be unhealthy and even dangerous. ? Other healthful choices include: ? Eat at home more often. This gives you more control over what you eat. ? Learn to read food labels. This will help you understand how much food is considered one serving. ? Learn what a healthy serving size is. Physical activity ? Exercise regularly, as told by your health care provider. ? Most adults should get up to 150 minutes of moderate-intensity exercise every week. ? Ask your health care provider what types of exercise are safe for you and how often you should exercise. ? Warm up and stretch before being active. ? Cool down and stretch after being active. ? Rest between periods of activity. Lifestyle ? Work with your health care provider and a dietitian to set a weight-loss goal that is healthy and reasonable for you. ? Limit your screen time. ? Find ways to reward yourself that do not involve food. ? Do not drink alcohol if: ? Your health care provider tells you not to drink. ? You are , may be , or are planning to become . ? If you drink alcohol: ? Limit how much you have to (more content not included)... Normal [facility] Coding Summary.on 08-04-2022 Coding Summary. CD:[id number] Ww+PG hlYWQ+DF8JPPSoO77fkFMezF1 aP7GKFHmDYeoxSTZBEDdMTkUj rfAgTW5ioGYqVEEg IC8+EZ1tRUXsWujfoZXmk9Y6g SU8E78evb0oENdklLF8XUJuAb Xjtaqwx9ppmSh7VFsaRzskTqH t OQUejC89FIE7nC86Lp83fRDtu QNrs1qusRt7BoXmFWJbYYF7bU tpIShmo1NvOHHvZ36vnKBmm9H 6 UCUjiPelkQDqPoMpsKO0mO2gQ Sembjoot6bziiboRgl5on39pN Lbo2U5dFC3D6JyutR0SIQybGX g CjbbyJEDsJ7zmmrsi2nyaufdU rHyHQOfWPq0QQh7UONbhJjqDe DrDR48TZF4NIAjrnPqD5QgYSB s bWmfDdA9w6E4Vc4DU2TVRhrwQ 1VNTUFSWTwvdGQ+KB70uw89B0 CyKybtVsc4YLAeGVK1qXD2rY2 n VWGiPAiit0O6sEM1K4NousFlk y9vj3lvAIBtKEidQ93bzZByb6 O0UVPfbMZ9FPXogLfbJaKynD5 3 Oyc+QLSfhFtqy0TrQpjyl3vth 2sauSh9YdhxJPDukqZfhMntHY T7f6QpSe8xDPDdvUS1lUT3iV4 i QpRuQeM2NOgbU894EiBtoPLpR ydtE60xT3PzqKQ+IJTzMds0GI KcrLhnYG3oI9GmICEraakrvCI m rRlvHQ9fBYMaqsnuPGQgdC7iS QLrN1n1PvSmTqX2QSenN3RpJX FpujrqEh30aS7xHrIzMvO9LJr u E1NfguM8PQZpsMOvSEppQQW0R 73dh4O4YQEhRRMwHXH2rWZ9kA 1hbGlnbjogbGVmdDsgdmVydGl j CToiHCmnK319AUJnaOthEtXyP GluZyBEYXRlOiAgMDQvMjAvMj AyMzwvdGQ+DIHkJGP6oPjoLPZ n nZSmRBltWl0bzHgpkYnlUB4oA XNdsbumANKgqC0aWKZiuGNpyN ysZW4pEJMxapryh191AuZkXAN 0 GREsqPQuM4DirW3nDaHcHHDrG IClA3DseMYjLEgoN442OXvoFx J7ETWabcHuB3GbGYAnwBxoDmF 0 f5U1Zs5Uo8WcgvkhZ9GlaXWhL dZsUhvyHOi1O0UeProytNV+PC 78DZCbZS48HNr1ZIK2wXibYBp i HQVfC8JqpM4tVqDuHAJbFJPiA yc+PHRhYmxlIHdpZHRoPScxMD QuAyYvuArmLF9gDy6cQCKlGYZ v qOhhbBJeGlVgv7vzQWCoGVfdK D7jyGvmH9PcjDO4XFVwz7u3Oj 78E29dJ7TbiJM+NISfdVC4rZJ 0 fH0nRmFgOfG8PLlwH635YtZks QMjRftui9exa5nkcQw8UcZ6DU NonwOupXdaYZM9i3SiIx95F96 s IHdpZHRoPSIxNSUiIHZhbGlnb m6hdN7tIi9+YIDtkRT1qGE6qC 9sObRgVyI9ACapN853HjHaiTC v Eniik9gjs2fwjHj6NqWzCXPqc cFybJkhJHM9s2VaAx94X1PcjD vjl9KhXwz3an54oPEdt1L4aHH 9 L1SqTBCswatlmYKlxFgaLV8qO YWyfdsjWCClhD3yRMMqA7w4Jz DzFeC3IPfiY9LlhbJ2EIDujFK g MUPqvUEQdT8lddcdm0prmxvfH cXpSFXxPFj2AIg5BXMbgIftGg WrOKW8HuV1FAU5aODlgD3fyIq n rzsvlR2lPcz+RGG2gDYsoYXMU S4lZbgglXJ+IVJtJJL1sIxjHS ztAMYhxU5hFJCdA0b9KxAdCiG 1 VChrT4JotoB0YTHbsUFgAULgh VJFaT9hqzdin3qwyehoPmTrHO GhFVj5LGl9BFRwlBcmWtWgRPR 0 KsV0WJC8mZCfcF7otFxxnukkh G9wOyc+UjnsxYxuZVB7ZDn4T7 XcSbe3SBUlzBgcAR6fcWNoTQc u Sz7smMollPdwJN6xDMLvppzhn 830BzCuc7jwMIPxeDGuNOixON W4X67ye7O7IWJzHYEbGHD3mHF 4 iM9kgXrubxnksBSbaGdfolRsj QfaRKekTUjfT094FGSecSmzYo GzCWx6O6PkKxp3IFMmbVzoWU9 n qPBeNKtkJy9sjYnwbIovJC9uB TYjhufhz383ZsXcy8fjBGNqnW ReCLnkPRD3W07pz8U8TQKtKEF w DTU4dXD8jP8jrSuglfjeeSOfr BvrbdQdnIhyOUpeAXarI873NK DleCssDmWcyBb8S8BbGkd4IBE z aVexKB8twHRiMOpuLm8hxIulk RxlBF8mCYIqpbntl380BnCkl8 qwJGXqkPStFEvqGVM5H25hv8E 6 ZTFvINXeINX0eDI7uY4cpNdob jogbGVmdDsgdmVydGljYWwtYW tqZ183SQCviDiyCwBdeMarctY g JCinOUr1Z0EjHpycoFV+PC90Y UAjAH41mGTroAEaq4kzsQw3Wi UnXRTbEPE4jRmmAYxid8ZxRXT t K74zkIViw7V6YHQpoSnwhCIcV iYxgJJ3pY3zVCesyrzkg8wvkl ckEltjj4wdsq38pE94A39qDZl p OGUtUSXeJSEbPRKxzUezuz5zh G9wIi8+GKGobAZ0eMY5vS7zSU TxSwE7HBpiX748NjMatEBnXtx j u1elj6iobYs6ViA4TECdthFof IzcWDZ7d5LqEf64P67wYPvxYB GiJZGfOVQtTTPxjObxui8noG5 w Ii8+RFVlrEY8kDS0oB1rAuQjM tP4RZgqZ623FaAbdAIcZmjtA1 1uA9QgzAW+QYXtPey9SBYtlBc s NW3kkMOlIHfiJq2fRDO9BwGlG iTxEVbcO5YeUWKeecykfadjzR Q8PFPbKCHxqI42Nf0cwKnaQHP w gNMWpE9wqqtyl2cweicbKaTqE FUeMYu4AAv5ICWshRzkNkHzDH Y7ZiE5BZZ3sETkhW2qmOuspnp g fP8dX4FqKZBtadvqDy44hN0rP lFlGiO8FAzzNge+UAPVC4GRUJ 2mTBxYP0iWSTVLLJ38QJ41qNC g l4U5cRG8V6PeDNAwkivhuvrzr IC0SRDdWAQnwI23hVTxUFpwMq 9gy2F6n054BNNuXWHrsT87Ci8 u pKfwBVHhhXVXwQ0ifyafq9gqu dloPtNwPGBtRFs5IWu9TNZxbR toQbYlAIO9ScT6VUV1sKZjyY5 h qUzbbjlugV7pPqz+MDIvMDgvM Dm3CVklxGM+NSZnYYZ8rCtuAM akQIDubL3hZVMnU1i1AsUqVeJ 1 OYqoQ3QrADHxafdeYh26bO5lJ fPnZqM4APrlR8UzgzG7UEYfeX YpKGzfTKJ3F37cs7S7APCwLXA w HQR0hXZ4cX0vjHhjvxuuuXDbx HophyPpeQngPFmzGKlaQ950KS QtbOqhIxH8QHyjWTYcLQ18SV1 8 pKTfb1I7yKB0Z9KwDCRwlpijs wjpyER3CWJpRBZhdX32gRZqVL upFq8fg9M9c290AZRmMNYyhS3 7 Vq9otLvtELDfcHBMbY3fcshmv 3isetdkMiNeHUZuSFx5HYh4WZ FkbVkqBeEaARD4MjI6RVV1iKB h nP5ujWnjiwnmyG2tMkp+RmVtY HvlDW97JS68nTKvl0I3oCS7E2 NcECZbpimuesryaSM5FUHuVHZ w jX86bWIjORwbJi0xz6J0h245R IQaIMYniM45Vb0teZahTYWsoZ EJuI8quaviq6rcdxffYeKyCOZ w PMv8BDs0NRXkvOxqKiNoONF5R oJ0TEM5yNDhgP4xaZzlreiywV 9wOyc+L0E7mYR8kZZunWoelAK + HC62ik85X4JoZhdaRjr6FNBgB BY3iGI6rM7jKGPvAXhdl1K7qC J3M4VxceHjsg3jy9mbTQWiXKv g U18msIGrp7X9ZFNzrDY2AIIng CyxUzWyiN89Fyw+PGNvbGdyb3 XnFwitr8eyy0chcWv2CdAvFBV g ttPgeFxxVFP8t4LyDk09V14oI HdpZHRoPSIzMCUiIHZhbGlnbj 2dhA0tBs6+KHPfqYQ8qSV6qO7 i UtVlNvC8VGbbI986RdLkmCLoF tawu4kbk1yliAu0RgRgEWKrgn GjvNvcISW3y0HwOu86N0LdoAi y v4TcMvn2fs71qTPjj9Q3wMJ8G 9NgRHRukqawuWRtaHbdTG6iBM LwbixhWGClmB6zXJOyG0b8ZjO w HlE3JSmhB3YlbdH0OHSjjLQmX SMlpIZOyA0nibhgy4ifwabmCv OyNMJvPTc8BNf6LIKpcBekMxM s NPH3RcN3SDF7aTPgkF2vcZzcn ixcaX2qYvl+WEx1c0jncSUxGW 2zfXW7LD52FQ18bOWbm6R4fQH 9 M5PwUFCetwvfdudmfVD7JQPmK JSkfI31Ma1jwIckOc2jOMKcJH O0BLEbgOJtX6UwwS5uImKyMZH w OCPkR7PqlWKpHZklD028HAnuY lD8FSVlofVzQ3QpVIEnqWmvGi S9j3I4Uu0KDA53RR79XD44pLB g i5M8sAO6A3JpLPQocjlartkqz MA7UBZtMFNfaT24Vn8phVmdRy 2wHIMlIMI2LGArvHXjO3DzpV8 y LzLhRNGhSOAqA4VjbTNpZMzrT 056QAmnLxW8SAHimpKlV9BfAT NspKonGrR1k4F2Li0TCs94BS0 0 QY77oUEdy3P2bFN6Z6SzIWJyj vcxmhzkrPB2ZITnFVMebD09Xh 4mdNsrNx4iLYAlPUP6SYIkwKL z B5FbtB9bChMdCEHiPAHyJ5Mxd LOnOAtuY648GRdxRaU3DFCndf FmM0LyAXUutJxhZaI5w0J5Xf4 Q ZVhqgnc5G0YhTurgyCL+PC90Y CBqQU46sZDrcLXpy9jtrCv2Av AfKRRfHJX3dFbwNAxtl6JiKUF t Z84ewYXc (more content not included)... Normal [facility] Coding Summary.on 08-03-2022 Coding Summary. CD:[id number] Ww+PG hlYWQ+HX5NEEKfR65psWDzwP3 aA0JXJSbQUuhrWWYGBMjDOgJv itFiNK2vtGMvTWGp IC8+MJ4wIBJjOjeddYHda3Y1j MU1V17yuf0pJRrmuUT3JSSwNc Jvgsgew6lavDl0TXpsMtbxPxP t DTDbtG44UNM9aY07Fs06iNZuu JRlk8glcFq3XrGoEQXdEGB9gM kqCEigk2TpLWNiP56abWNji1N 6 HJUciDcblKQzAsHcoMP6uZ2uN Thrjiscr5lvhdalEdd3ep57nX Qkr2U2yYI6B4AtchR6AHEjcRU g JcbqoJMLmI4tuzgqz9qqivabI lTpVHInUMs9TTr5RQQrvPluLh ApOP80VOW5SWJfyiRoY6HiXEI s rPkoZcK6g6P6Zs3KG1SBKfzaI 1VNTUFSWTwvdGQ+TP60kv58P6 UdXclyJzu3CXCuMJD9bPU2gQ1 n GFOhHDikc1Q7nON1L0RouoErb j7xf9gkQFZwSTmcL29vmKVxu2 R8QXUscCQ5SQHjxAetCyOssW6 3 Oyc+DVXjvVrjy7KpXkpfn4luo 1fwaRe8ZakiZGXrjrZbdEaeCY O1g8EzNe6wVSKdpPL8gRO4eA9 i YmIcFqG8SGqeW276VhKibRSzD btlX32fY7YzsOI+TWTeEyo3UE AgkWteAP2pT8IsSOGkdepwpIG m pQtkXH6mLQHuoxliXXAocD4nD IRnN0c4XtRgDxM4BPrsS9KvRS VncoxhXn93pW2lJgJiKrG0MQc u N7CxezD6CZOkoZQpYTjlTDJ3N 36ms5V0FTMcUIEfQLO1iSX3iP 1hbGlnbjogbGVmdDsgdmVydGl j DEqyCLwqK405XLUgpCerUpYaZ GluZyBEYXRlOiAgMDQvMTkvMj AyMzwvdGQ+RRXqHCM0aJmsKIV n bYSsQZkbXp7obAiypQqxUA6dE XNaucgdBKDykP5sFXMqmCZwtR iqVK6pUWKmddtzg749YkTlRMA 0 XEZivAIhD1MvaR6fSsJhXNMbJ QKjC5YroFVzXBgpJ188CYyxKu R3RFAagoWkO4RxCDSjxTxrRsE 0 o5F8Ex1Kp7UeirxkV0CwlFWpM eAtKrttPSm7C8FbTivvwVR+PC 40SFCoFQ60VNy6FRB3rZjgXGb i YEXhS7MxnV7yDgNhMVOjUORzK yc+PHRhYmxlIHdpZHRoPScxMD RuOkHrfNqeML4wBz1wFNIgAHQ v pZlxvCObGdHjf8urUNZvGTfaF V7pyZdxK0UbxWH4DHGph1x2Ag 38G85yZ1EhsBW+ZSDtvWW5kHI 0 vI4qMsXxYfV3NPjxM334RsJpg KRmFnbyk4lrn6merKe5MtJ5WV CnkoByiNijOZV9n0TqUv36Y25 s IHdpZHRoPSIxNSUiIHZhbGlnb e2hiG1eNy9+TFMqeZN4pJG5yO 1eYoGgKvT0EQopC610GtKzmAK v Ocvxo8vpt2rycIp6WwItPMKpq dWzgXawATD4e3EfQd40B2CdwZ rhd7KiXwu6ok49fXKdg6H9uPI 9 I0PhZPCzuleiyDYslAvcHE0tQ ZCecainXTRstK3sAEXbM7s7Wk ElSkK5JLjjD1JncrQ4ILNqdOG g YLDagMITlG7rxlfut4eqkllnZ xEjLJHrCGj6UNt8RLYhoCxiRp KtAKF4AsH0MSV9wRVhdT1pxVp n rhajuY9dTck+ASL6kBGznGIRJ B8rFcqmgEJ+YJDcMDD9cUzxQQ zmSBJbjS5fJZGmF4o7TpZdUhD 1 FIirB0YqkfT8FPOblEDpGOTvl CJTfM0xqukbz3skohhhOlCdKE QeVOp0VGq4QJMnyEguVjHrVXQ 0 StZ9GSE5xIUiyZ0cxJquvwvxi G9wOyc+WifprApyMCE8UGk0S2 NeHye9VHWgfBnxCO2peWNkRWp u Rp0chDqoxVowLG4fFJOwmoxhz 051CtSlg4ejVFJdsQNiYJggND K2C64sx2V2UQWuKTZiEWW1xEB 4 oC8rwSrrdsbqiYCiwEythdLfr SfrCRqaFQrgV303UVFonUmkBt JjUVl8H5UfUjr3FBUliLxrTL5 n eKEfTGfqLz7kjJlvfMzhFK2cT ARhocyub873LxLna8wcMFTnzE PkVPpjIJO6B79gp7X8SSZyFXQ w RJG3eDF9nA1pqWsiwtcikIAhb HebkgHveNqmPEocBHygI747UO ZboPxaAjXmtSe5C5WwFcx4LAM z hKesYM8xdMBfFYsrEz9ioCrnr UsvKF5sNOVijrkpw412GrQhi4 kmKCTyoXGcWBhiHEM3B71gc6Q 6 SOGuGFMlDEO5rGZ1oK2vhTdrk jogbGVmdDsgdmVydGljYWwtYW qqX096QNRawEbkFpQnyAvwngX g STpmSOx2M7GjMwoegTH+PC90Y ADtMY24gOCjmBQle2ychMc3Wt AjGSXgSPM5nDtdPXskq8QbLMR t X73psTBry7W0CMJjjIlpaYYzN dCfgRZ8uW6pCBwqltqch7edmn gtPqcue2wyyv10wP83N30hAFu p FXUhDUJmTYKdCPGvnHatmp2yy G9wIi8+ZUHfqFC4kWL7uA1dTZ WnZvP0OKceV140ElPvmNGpNcw j y5ara2yelTe4OwX3WTIvciRze ZpdEBE4o3ZrFe46T08hDTmdMJ NqLRZsAZNiQCEdpVajfn6utR3 w Ii8+NFAzbOO3wKZ4lC9tQfCoS oA6BOqqQ438XeUmgELxMmyrO4 5zG1TtvGZ+ERMaMzz0IVIumLa s QN9uoGEcIUgtHh1eHWK5UyVtL qSyWXpzZ5WjBWEsjozmahoumK P2OQTaZMIgyB30Yi1evSurRLQ w sWIYjR9anrybg3eebucdDcVuW HUqSKq0FKe3DIAetOueHuKmCB D8KrX3KZQ7jYFlsO1mpTsvtpg g hF1bM2KsIWWisluzTg02sF7nJ cTzVeE4TPbeGmu+XHOQY4MMTS 9iBBlFF6rOXRGYDR90RJ64bKR g p9S8mUT5A0PtUNFvatlplabbe IG5BGGfTGJsuS11xENpOTjfTn 4uv1D9z990HGNaKVQypC20Ma8 u kRuvQADtxQAXdX4swwbvv6uiz dqsViTqGUYvFDc9SJf3VGHdeB bzIoCcLMG8SyN0IVW4xTLqoJ2 h zZbwkefizZ1xEpn+MDIvMDgvM Wa0SAbwhHD+OQVhPNT9vVpfCX hmIKMouY0cVXXrY3p7ClVwQwA 1 VLoyS6ZgAXMxgvfrFs13mP5vB eVyVvA7TAsbA2EfgwK9RZAgzF LbXVhtFYK0S29jr9O4YIDySVW w UYD3nNJ3aY0rzKkcaifjmZUjy JtyefYzpSsxTMyoRRyzG796PJ VkpJcxViX6OYbiAEWjHF16VN4 8 cTXuy6O1dJP9Z8ObYNPvkqvif kqqxIM8LTXdXOVtyC17sECiMY omYd1wz4R6v976NIQcXKHfuL8 7 Pw3qnEvaHSXlzIQLhS9bukzts 2pynsqsUgNxLYYzUWi6DFp2LR LxjHwcCuWlGJY2JlS4CWK9cXK h lX7bdXmxvzloaN8pVgf+RmVtY IrmGT46RW18vGTwh0L9jKG6T8 VrPUHdvirsridezHO7YDAjZKU w xN95hWThTPnlRs2vt9F7r291X ZBbISFchV19Kb5yfJhcFVKbdB CAkP3xdbjwr7diodpgJxTyFOE w UNv9MGl5SDWiuPpeUbZjCTL9X kI5VXG7qONutU5uwWispqzqsM 9wOyc+T8M7mJI0fPHajGlgmFM + TZ61eu12F5LnYltiSau0IWTcG KU2sYN6lL3zGTOrCYnhd6E4tE A9H4SojdZtvd8lj8isUXJoORq g Z14edJSul8K8TEInjRO7GXAxd HasSfVuaK03Yph+PGNvbGdyb3 VeGsjns4dbb6lbvUv1PvUtRLL g rgZxwKtdRNH3c5SuUd02E59fP HdpZHRoPSIzMCUiIHZhbGlnbj 8riZ6vTu0+TOLskPV7eMC4bV2 i UxZeElR8OQbeF437YwOacVPgG vqzl8jhd9kxxBv8EaFkLECesa FvnQtxIWA6j9QdMl73S5WswEp y n7JbCxu8gg30cBMxv3L8aWM7C 4RcGWJwapviyAQgqVhpAG0rZN GtbxuuQZTyrG1iPFHhM0h5XiP w PqD1QQvuG7GeopD2WFJpyHGyW JPmjSTTaU0dhhcti0pvlbleWf TsQBGkQQd6URe0ZAEhaXnoIzP s HEP0NvS7XOK5gUWvkS3drJfba lwscZ9jWbg+XJy8w6zymBKqAA 4bdGU7UO82RU57gHKvj8I0uAH 9 K9JdYJAhqttpgkrioTW1JOLtB HZeyJ85Pm7uzMajCc8xHQGhTM B9XCNjtZBqK4CgiT4lJtUmJYH w RZHfI3DcbXSoIJcfA697RZjpT iP0IPEsbtSnF4GhGUEjhDfgSd M1m1K4Bx3ZTN04HA63AX67pLT g e6P9oDC7J7MnACMbudifwqwpy ND6DGPcWFZsfR65Zk9obBowSu 7lDAGyZUU8BODzlHTjC4ZmiY5 y NqEnCHMrYLUjW6NuuXXjNKfgB 107ZQfsYmQ4TBSwsbZfZ3InLZ KfmEywJwM3g6G9Pb8KMg60DO2 0 QF63wPIuf0C8sSD1P3RbQJZrl xivyyiosUK8DZKwFEPseN70Ee 9wmHixIg6mQAJbOGS2UVEuvJD z O6UxxS3vUuVyUUYnDEElW3Ibv NZzJFzkE636OVzyBrN0UCZfla UnE1JyOCZhbSqoXvZ1x3F2Lz0 Q FWxtoip0K4LsFfmmaCJ+PC90Y WTrXX58zKEhsNKik8thnVd1Wf DfMELkUXL5yKdxWEnmr1JqVBI t L53fuDNm (more content not included)... [facility] Provider Letter FTon 08-02 [place] [facility] [place] 02, 2022 BERENICE SANTOS [id number] [address] BERENICE SANTOS 1995 Dear Berenice , We have been trying to reach you with no success. It is important that you return our call regarding your ultrasound upon receiving this letter. Also, at the time of your call, please provide us with your current information. Thank you for your prompt attention to this matter. Sincerely, [facility] [phone] Normal [facility] MRI Spine Lumbar w/o Contras ton 08-01-2022 MRI Spine Lumbar w/o Contrast Exam Date/Time: 07/29/2022 18:40 EDT Reason for Exam: M51.36 Other intervertebral disc degeneration, lumbar region, LOW BACK PAIN Report IMPRESSION: DEGENERATIVE DISC DISEASE IN THE LOWER LEVELS, DESCRIBED. 4 LUMBAR TYPE VERTEBRAL SEGMENTS, NOTED. EXAM: MRI Spine Lumbar w/o Contrast DATE: 07/29/2022 CLINICAL HISTORY: M51.36 Other intervertebral disc degeneration, lumbar region, LOW BACK PAIN. COMPARISON: Lumbar spine radiographs 07/02/2022. TECHNIQUE: Multiplanar MR imaging of the lumbar spine was performed FINDINGS: The localizing sagittal sequences of the entire spine reveal 4 lumbar type vertebrae, without a typical transitional vertebrae at the lumbosacral junction, and hypoplastic T12 ribs. The 24th vertebral body has been designated L5. The vertebral body heights, alignment, visualized lower spinal cord, conus medullaris and paraspinal soft tissues are unremarkable. The lower thoracic levels through the L2-3 level are unremarkable. At the L3-4 level, there is a small broad-based central disc protrusion/extrusion migrating caudally, without central spinal stenosis or neural foraminal narrowing. At the L4-L5 level,, there is mild to moderate diffuse disc bulging with a small broad-based central disc protrusion and mild hypertrophic facet and ligamentum flavum changes, without central spinal stenosis, neural foraminal narrowing, or discrete disc extrusion. Ordering Provider: JUSTIN MAX FINAL REPORT Dictated: 08/01/2022 3:19 pm Leonard Thorne MD Signed (Electronic Signature): 08/01/2022 3:19 pm Signed by: Leonard Thorne MD Transcribed by: WHITNEY Technologist: SHELBY Technical Comments None [facility] Consent for Treatmenton 07-16 Consent for Treatment [id number]#1.00CD:12 7 [facility] Consent for Treatment [id number]#[id number]:12 7 [facility] RAD - MRI Screening Formon 0 07-29-2022 RAD - MRI Screening Form [id number]#[id number]:1 27 [facility] US Gallbladderon 07-29-2022 US Gallbladder Exam Date/Time: 07/29/2022 13:11 EDT Reason for Exam: R10.13;Abdominal pain Report IMPRESSION: Cholelithiasis without other sonographic evidence for acute cholecystitis. EXAMINATION: US Gallbladder HISTORY: Abdominal pain, R10.13. TECHNIQUE: Sonography of the right upper quadrant was performed. Images were obtained and stored in a permanent archive.\X09\ COMPARISON: None. RESULT: Pancreas: Normal sonographic appearance of the visualized portions. Liver: Normal echotexture, echogenicity, surface contour. No focal lesion. Gallbladder: Multiple echogenic shadowing calculi. No associated gallbladder wall thickening or pericholecystic fluid. Biliary Ducts: No intrahepatic or extrahepatic bile duct dilation. CBD measures 0.3 cm. Right Kidney: Imaged portions unremarkable. Ascites: None. Ordering Provider: , FINAL REPORT Dictated: 07/29/2022 1:14 pm Juan Ruth MD Signed (Electronic Signature): 07/29/2022 1:14 pm Signed by: Juan Ruth MD Transcribed by: WHITNEY Technologist: CHLOÉ Lozano [facility] Ambulatory Visit Summaryon 0 07-27-2022 Ambulatory Visit Summary BERENICE SANTOS :1995 Visit Date:07/27/2022 Ambulatory Visit Instructions Your Diagnosis Rectal bleeding Blood in stool Epigastric pain Nausea and vomiting Family history of colonic polyps Your Care Team Attending Physician - Olena Resendez CNP Primary Care Physician - JUSTIN MAX DO This Is Your Medications List magnesium sulfate/potass Cl/sodium sulf (Sutab oral tablet) Contact prescribing physician if questions or concerns acetaminophen-codeine (acetaminophen-codeine 300 mg-30 mg Tab) escitalopram (Lexapro 10 mg Tab) esomeprazole (Nexium) meloxicam (meloxicam 15 mg Tab) montelukast (Singulair 10 mg Tab) ondansetron (Zofran ODT 4 mg Tab-Dis) phentermine (phentermine 37.5 mg Tab) Procedures Performed None. Discharge Vitals Temperature (Temporal Artery) 36.3 ?C Heart Rate (Peripheral) 102 Blood Pressure 107/70 Height 157 cm Height 62 in Weight 76.7 kg Weight 168.74 lb BMI 31.12 What to do next Scheduled Follow-Up Appointments Monday 6:00 PM EDT Where: [facility] You Need to Schedule the Following Appointments Follow Up with Olena Resendez CNP When: Within 1 to 2 weeks Comments: Following EGD/Colonoscopy. Where: You Need to Complete the Following CBC w/ Auto Diff, Blood, Routine collect, 07/27/22, Order for future visit, Lab Collect, Rectal bleeding Invalid Interpretation Code Nausea and vomiting, Print Label By Order Location\.br\ Comprehensive Metabolic Panel, Blood, Routine collect, 07/27/22, Order for future visit, Lab Collect, Epigastric pain [facility] Consent for Procedure/Surger yon 07-27-2022 Consent for Procedure/Surgery [id number]#1.00CD:12 7 Normal [facility] Gastroenterology Office/Clin ic Noteon 07-27-2022 Gastroenterology Office/Clinic Note Chief Complaint Blood in stool and abdominal pain. HPI Staff Patient is a 27 year old female that was last seen 08/12/21 for office visit and was in ER 03/23/22. Patient c/o abdominal pain, diarrhea and blood in stool that has worsened over the past several months. History of Present Illness Patient is a 27-year-old female who presents for further evaluation of abdominal pain and bloody stools. Patient was previously evaluated by Dr. Hawkins 07/2021 and note indicated patient with positive Hemoccult stool. Patient had previous labs 03/2022 that revealed normal CBC, unremarkable CMP, normal lipase. Note from visit with Dr. Hawkins indicated patient was ordered CBC, sed rate, CRP, and colonoscopy?not done. Patient was previously evaluated in [place] [facility] [place] and note indicated patient with blood in stool and was to have EGD/colonoscopy previously however, patient indicated per ED note that she did not have any more episodes of GI bleeding and did not complete EGD/colonoscopy. Note from ED also indicated patient with nausea and denied abdominal pain. Note indicated patient's H&H was stable and indicated patient likely had a vasovagal episode. Patient was advised to follow-up with GI regarding GI bleeding. Family history of colon cancer: Denies. Family history of colon polyps: Patient's maternal grandfather. Personal history of colon cancer: Denies. Personal history of colon polyps: Denies. Anticoagulation therapy: Denies. Antiplatelet therapy: Denies. Denies FH Crohn's disease and ulcerative colitis. During today's visit, patient reports having epigastric pain described as stabbing over the last 3 months that has been worsening. Epigastric pain occurs sporadically and lasts for days. Is having associated nausea/vomiting with epigastric pain.Is taking nexium 20mg daily OTC that controls her acid reflux for the last 2 years. Patient reports having rectal bleeding that is bright red in color that started in 03/23/22 and resolved the evening she went to ER. She explains with rectal bleeding, she was having feeling of fever. She reports over the last month, her Lexapro was increased and last week was started by another provider on Adipex and meloxicam. She reports having rare occasions of bright red blood mixed in her stool off/on over the last year. Denies black stools and denies unintentional weight loss. Denies having any other GI complaints. Review of Systems PHQ Score Initial Depression Screen Score: 1 ROS - Provider Constitutional: no fever, no chills. Skin: no Jaundice. ENMT: Denies dysphagia and heartburn. Respiratory: no shortness of breath. Cardiovascular: no chest pain. Gastrointestinal: yes nausea, yes vomiting, no diarrhea, yes rectal bleeding. See HPI for further details regarding. Physical Exam Vitals & Measurements T: 36.3 ?C(Temporal Artery) HR: 102(Peripheral) BP: 107/70 HT: 62 in HT: 157 cm WT: 76.7 kg WT: 168.74 lb BMI: 31.12 General: Well developed, well nourished, in no acute distress Head: Normocephalic/atraumatic Lungs: Normal respiratory effort and clear to auscultation Cardio: Regular rate and rhythm, normal S1 and S2, no murmur, no rub Abdomen: Soft, non-distended, non-tender. Normoactive bowel sounds present in all 4 abdominal quadrants, bilaterally. Mental Status: Alert and oriented x3. Normal mood and affect Assessment/Plan 1. Rectal bleeding (K62.5: Hemorrhage of anus and rectum) Is having rectal bleeding that is bright red in color that started in 03/23/22 and resolved the evening she went to ER. Ordered CBC. Ordered Colonoscopy. Ordered: CBC w/ Auto Diff Colonoscopy (Hospital Procedure) Comprehensive Metabolic Panel 2. Blood in stool (K92.1: Melena) Is having rare occasions of bright red blood mixed in her stool off/on over the last year. Ordered CBC. Ordered Colonoscopy. Ordered: Colonoscopy (Hospital Procedure) 3. Epigastric pain (R10.13: Epigastric pain) Is having epigastric pain described as stabbing over the last 3 months that has been worsening. Is having associated nausea/vomiting with epigastric pain. Ordered EGD to evaluate for PUD. Ordered ultrasound of gallbladder to evaluate for acute process. Ordered CBC/CMP. Continue nexium 20mg daily. Ordered: CBC w/ Auto Diff Comprehensive Metabolic Panel EGD Endoscopy (Hospital Procedure) US Gallbladder 4. Nausea and vomiting (R11.2: Nausea with vomiting, unspecified) Is having associated nausea/vomiting with epigastric pain. Ordered EGD to evaluate for PUD. Ordered CBC/CMP. Ordered: CBC w/ Auto Diff Comprehensive Metabolic Panel EGD Endoscopy (Hospital Procedure) 5. Family history of colonic polyps (Z83.71: Family history of colonic polyps) FH colon polyps- patient's maternal grandfather. See # 1. Orders: magnesium sulfate/potass Cl/sodium sulf, See Instructions, 1 EA, Refill(s) 0, Please follow instructions per packaging and physician's handout, [facility], 157, (more content not included)... Normal [facility] Comment on above: Result Comment: Elec tronically Signed By: Mal SIMPSON, Olena De La Cruz\.br\Date and Time Signed: 07/27/22 09:55 EDT Patient Educationon 07-28-19 Patient Education Gastroenterology Gastrointestinal Bleeding Gastrointestinal (GI) bleeding is bleeding somewhere along the digestive tract, between the mouth and the anus. This tract includes the mouth, esophagus, stomach, small intestine, large intestine, and anus. The large intestine is often called the colon. GI bleeding can be caused by various problems. The severity of these problems can range from mild to serious or even life-threatening. If you have GI bleeding, you may find blood in your stools (feces), you may have black stools, or you may vomit blood. If there is a lot of bleeding, you may need to stay in the hospital. What are the causes? This condition may be caused by: ? Inflammation, irritation, or swelling of the esophagus (esophagitis). The esophagus is part of the body that moves food from your mouth to your stomach. ? Swollen veins in the rectum (hemorrhoids). ? Areas of painful tearing in the anus that are often caused by passing hard stool (anal fissures). ? Pouches that form on the colon over time, with age, and may bleed a lot (diverticulosis). ? Inflammation (diverticulitis) in areas with diverticulosis. This can cause pain, fever, and bloody stools, although bleeding may be mild. ? Growths (polyps) or cancer. Colon cancer often starts out as precancerous polyps. ? Gastritis and ulcers. With these, bleeding may come from the upper GI tract, near the stomach. What increases the risk? You are more likely to develop this condition if you: ? Have an infection in your stomach from a type of bacteria called Helicobacter pylori. ? Take certain medicines, such as: ? NSAIDs. ? Aspirin. ? Selective serotonin reuptake inhibitors (SSRIs). ? Steroids. ? Antiplatelet or anticoagulant medicines. ? Smoke. ? Drink alcohol. What are the signs or symptoms? Common symptoms of this condition include: ? Bright red blood in your vomit, or vomit that looks like coffee grounds. ? Bloody, black, or tarry stools. ? Bleeding from the lower GI tract will usually cause red or maroon blood in the stools. ? Bleeding from the upper GI tract may cause black, tarry stools that are often stronger smelling than usual. ? In certain cases, if the bleeding is fast enough, the stools may be red. ? Pain or cramping in the abdomen. How is this diagnosed? This condition may be diagnosed based on: ? Your medical history and a physical exam. ? Various tests, such as: ? Blood tests. ? Stool tests. ? X-rays and other imaging tests. ? Esophagogastroduodenoscop y (EGD). In this test, a flexible, lighted tube is used to look at your esophagus, stomach, and small intestine. ? Colonoscopy. In this test, a flexible, lighted tube is used to look at your colon. How is this treated? Treatment for this condition depends on the cause of the bleeding. For example: ? For bleeding from the esophagus, stomach, small intestine, or colon, the health care provider doing your EGD or colonoscopy may be able to stop the bleeding as part of the procedure. ? Inflammation or infection of the colon can be treated with medicines. ? Certain rectal problems can be treated with creams, suppositories, or warm baths. ? Medicines may be given to reduce acid in your stomach. ? Surgery is sometimes needed. ? Blood transfusions are sometimes needed if a lot of blood has been lost. If bleeding is mild, you may be allowed to go home. If there is a lot of bleeding, you will need to stay in the hospital for observation. Follow these instructions at home: ? Take lymr-obv-bimryan and prescription medicines only as told by your health care provider. ? Eat foods that are high in fiber, such as beans, whole grains, and fresh fruits and vegetables. This will help to keep your stools soft. Eating 1?3 prunes each day works well for many people. ? Drink enough fluid to keep your urine pale yellow. ? Keep all follow-up visits as told by your health care provider. This is important. Contact a health care provider if: ? Your symptoms do not improve. Get help right away if: ? Your bleeding does not stop. ? You feel light-headed or you faint. ? You feel weak. ? You have severe cramps in your back or abdomen. ? You pass large blood clots in your stool. ? Your symptoms are getting worse. ? You have chest pain or fast heartbeats. Summary ? Gastrointestinal (GI) bleeding is bleeding somewhere along the digestive tract, between the mouth and anus. GI bleeding can be caused by various problems. The severity of these problems can range from mild to serious or even life-threatening. ? Treatment for this condition depends on the cause of the bleeding. ? Take hohf-pso-cnggwbh and prescription medicines only as told by your health care provider. ? Keep all follow-up visits as told by your health care provider. This is important. ? Get help right away if your bleeding increases, your symptoms are getting worse, or you have new symptoms. (more content not included)... [facility] Physician Orderon 07-25-2022 Physician Order [id number]#1.00CD:1 27 [facility] Pre-Certification Formon Pre-Certification Form [id number]#1.00CD:1 27 [facility] Coding Summary.on 07-08-2022 Coding Summary. CD:[id number] Ww+PG hlYWQ+BL1XPXIeL36ksDAdpZ6 yS8IASQfTOzhqZWCYNDiMWxGl obJeOS4jsASzVOSj IC8+FY2nWPOjWydciMXfn9M8e YP4F60dwc8vSQqngTY8WBSiPm Irriiqj4hbjSw5TReiKwqrNpD t HGGlcO09ZTJ7qF15Zr31mAEem WNgf0lfmUo6PwXvVSAzZVV5qU bxANelc8AbZFYwT57azCLld3E 6 NTVjiXfiuVKzVpKcrIK0yP6lI Kjmdlstt0enctiePuj9xb66wM Hjf4Q2mPW0Y4ZogsK2FOPsjJX g SgidyMYZoN1obkhqq2wsnfewQ uJnQTTfBYn3XOt0KHIkxOyrOg ZkHN32JOS7SAPrvsLaK6QnVXS s cUrlLjO1b9X8Ox4WG1SJQfobC 1VNTUFSWTwvdGQ+CH00ys07O1 AzYcipStd2RQQlCBP3jHB8zP6 n DNJnLXyxq6A6sQW7B9AjhgKeo k4nu4zmASWjQHieT90feLZnj2 A9ATXytIV0CSOwdEfnDdIwkB1 3 Oyc+XVFkxXokh5YtUniqu0vjw 6sagRq6YjeiWYDkwhFihCciTU P1k4DaLc5vPFFkeWJ8xLM2wU9 i SvQvOoB7SCntG026TxXnxCPcX odlX61aG0MuqHT+PKNmYeo6SY WduNmcKH4aS8TpQWHsxbyelPT m uUmvNC6zEKXhbtclKBAsmO8nE PFwE8x4IbLkPhK7ZSnuA4OcZD RoaigtRz76fL0aTpFwSnJ5HRi u O2PkgrA0VXGyiRTmOEtaKWV5G 99cm0Z3TRLsWAZpSCN1gHE0zX 1hbGlnbjogbGVmdDsgdmVydGl j YMziEChbE766APHkbVbuZwJtU GluZyBEYXRlOiAgMDMvMjQvMj AyMzwvdGQ+YCXvIBR1xVvdXLC n eGTfIDwmAj0jkGrjkLnfGI0wX YStqiumNPWxeY1xKWLcqGApoQ bfLT0hYZJtexbcq995IwVyCZI 0 XPBazQHdK3CzdM7cNsSwYLWcC SZeW9ZkuXNhJRanA819EZgsHb P3CCMcswJtZ2ZdBTKfvTpeKzJ 0 b3B5Ev1Qk1KcvyhuJ6RhaCSnR lHnUyknQAz7D0YiSsfljDE+PC 07BBJiMO04ZMr1RUN9zEphDDb i SPRpR3RyvB2hRwFtWSDmXDOaY yc+PHRhYmxlIHdpZHRoPScxMD CyAvDfhAizCO7oJm0dAVWxXAU v nXynpUGzSgCmz0hlBWFxOKgdB L8wyZffD3ZnyJW2FTAqs1u9Dn 06R13cS4JhxDF+IGBhgKH8gCY 0 eF7pGyJtNfO6TDueE934LaGcc DZmRndqj6vae9masUx1FzD5NC UdxnJezQjdSZA9s9BaTs23Z72 s IHdpZHRoPSIxNSUiIHZhbGlnb l9olN0aVz7+OIAplSN3fFJ5dB 9zBkGmZdS1TVyuM437MuZvkKA v Puvrh2ifk0qusNk8EhNjGOTbi rFajJtjMSM7q6OhRe92Q8HeqG jia3MtGtb6rt29uYBjr9G1gCL 9 T7DwCYCzdfzwcUFewLofZA6gF RYghzlxNGIgrB6aPUBpP3i7Sy RnKcY3LUgfF9MvbcQ7RZMjeJH g FRIeoSCNhQ2omzvmg0oaciclN pRwWHUrZDl1ODu1EQPfnBjoTg ShGJU1IgW9BEZ0cPVflG6rcAy n vwcnjJ8rUle+WLI6zNOopJHDP F8tSzfbtOY+JLGvGJK9vFmkTC ylLSSsaY2qFITkG0q1BiDyVbZ 1 TRwdL1BnmjH5RRMqlEFzRBRro FJKqO5wldeno0lmtxtqSbPaYJ IbTMm8UFn2WQHlkNqlUmMcIYB 0 EmF6NBB2dXNwrK6pvHvjdobft G9wOyc+BrbepDffTLI3ZDd4L9 ObChc6OTWjcVraXZ8teJHsSWj u Tz3lpHltgWnmLM9cUVWcfkiwj 787RiWjw6ogCUQieHFyWKwlUC N1J66hu1W9WWBvHXSjUJU0wPP 4 hB1mwRyqrvelhYKhtDlcpbNla FqbTIxwTBqwI165IRAfbPtwHn HuCKc7Q9OnCap6DQXukOpyIT9 n eAEmANrtFv8cjAveeQtyLK6zZ PSibfhow218HiZqp2kyQKRjtJ ReBPktAEI9Q49xg9J4YTBmWEX w KGJ3jWW2tT7foIfpfizgrJYci YlaubYruLlhVSbbBMyxK457TF GdfVdyPvAsvOe4I1HpOfn8EKI z zZfqIC0hlKHlHWsgCx7ssEhts UnrFP5wYMXrtbmjx303OtXke7 zlFXNpuCLjMMqfZEV8P81fb3F 6 INNySXYgUNI1nNU4sY5ilIvfi jogbGVmdDsgdmVydGljYWwtYW tnJ277ZJHccNsgCgEisPjcuxS g WDkaBXj4R5UmLejrmXM+PC90Y NKfGK22aCOorWVue5cfxRj9Yt XeUAWeIVC0dHmrPNubj5AiBWK t G68izJKxn1U3SECqyHsziJIuQ rTikZM8zK7yFXrifkowr9bbrx ktNpbyk3nnuw44yL61A57pOCf p YTQdJAZfDITzGGSiqKszki8fb G9wIi8+ZWExmDG0cXC3pR6vCT XfEcD1ZAlrU836WyObdWTkAtz j n2rom7kvlMg3KnG4XSLtvtKev NeyZPC4d1YrBo98D31bXOcrNR GrDOSnHCFiJXDnlPwymd9whK3 w Ii8+ZGKxmHG8qEX0tN1xYkXzP yL6PFtiN163QkDnbOEdYgliJ2 9vO4JinSQ+RKUjRcn1OEOxsCk s VC3qcTXeMUarXg4fAGT9AiYqR cNyULjzB4MmBOKrmyluykrunA Y8BIVtQQYwqK40Yy6yyNnsYEO w nFMHjO7uowesd9bpwsezAsOnB PVwRIe8DAj7DNQgdSgsCxFsRI K3EqV4BFQ5dTIlaW0ecRvwskl g nO0cM8DcIWUyxxsxBi41cR2bB aVwExZ3YYhgJyn+WXEOS9YTZD 2lIOzCA1xRQIAQUB81FJ74wAB g w0C8zNZ5P6KmKPCavczyzekzx TH8MJBkUOUmuA83cYIoIJkxFi 5ih6K5h140QDLoSNJjfI47Wj7 u nGdlPTBcuSQViB7nsvovp1uxr oguNkRcWGXvHCa9SGo1QYZbiD blOrWpNHJ1RyG9JSH7eNLpdB8 h qTvgmmrqrN6fRyp+MDIvMDgvM Zf7KYlqwRI+IXDeSYV0nAyeCZ mcEZQksZ0lYCQiC6n5KjZrOjQ 1 UKdxL5ZvVJJwmfmvHs37nR3jO aYqAaI7SPhdC4IhkeC5GGMwfT PxVIhuTRQ8N56fu8S2JJBlXZM w ZEA9fPU7vW5ghMazwrkqsJBhr CvwxsIyoAzkNNqaBKhkM596DR EuxOvvQrF1EUojMMOvIT91SE2 8 uQGld9M5uAW6Y7KyYTVpkwbem nsbiNQ5DECjJHUigJ24uUJiNM rrJy6zd6X0c395MREmAMZbjX7 7 Qi1qzQldZFNvuNWIqN1vvpkxx 7wjioreMjNwYFCxEWe4VHf6CA XrrPljCnVxQHN2AwZ8QCD9jQL h gB5wwBsgyxcpzP7mEip+RmVtY TujDA14UQ52gTSrb8N4kTX9I4 XhSFWwttssnujiqFO0SNMgCOO w wV73lTDaISgjYe0hj4B7v113K GOiTTZbiE63Yy0kqIciQPWztP YDzP4xevrav5zvtteoXyKnBBW w JIk6NTd0SYJktLybHdUpICQ7Z zW1UKV1dLYrtO0hyTcgeutuyZ 9wOyc+Y8Z6hLJ3rVUguInjbYJ + CZ20wy99C2IgAqcoLwj0KHRbD DM7pNF1xU5cNQVrNGdmw4S1lN M6A6CwuvWhen2en8dmJMYmWCb g Z63vmAYgp9E3RRJowFR6BNBwf JecAxXstB03Jbd+PGNvbGdyb3 SmRlzuj3hay6wjlWe4BkFsJUZ g jdNftOqcPDF2d8HqIy32X36sX HdpZHRoPSIzMCUiIHZhbGlnbj 6ajA7jDk3+BLJmyRV7nQQ9rP6 i KqXbGxB8HMbjV531UdZnnCZiW gifn0qjh4gskHb7DeQtNTIeim JsgMnaLCW5t9IxIe14D9GkrSx y h4EeVjf1bj34vBUhk0P8vXH6S 3YbIIHgijryaDUseBksZD9qRF RfgbmuNUHbjS7xIYOrW4f2YsZ w WaQ0HLzeK9ZqmwY4EHWlmFAhT LQoyNZJgG9poirya3aaluokYb SbXUZnEJv7REg7JJZfqAykXhZ s QKD9KgG4HCN3dOHqiJ8lgWucr zrooS0oOpq+VJc5n0bfmVPqOC 7rlGP3DG65WJ32hZOwe1D0wUM 9 N5KdJRTdvcvoajjzlFA4EWQlU DVbfZ54Fh0zuBfzMo0rBKMiSJ U6KKLydUIqL7EjnE0dHqYwMLP w DNAsI1TvbUNyVLheB065OTtmQ bI2GIEgvrYyE3ByZEYqnNwrIu E5w2W7La7UZP88VK68UU57hSU g a4E8zIE7J3YtZHFtfbszxaxky UX9WCFrVEOboX86Yo3hvBswFg 2iAGMiNOT6GYIfdEJqU5TktL0 y WmObRMYkSBXaK8OvuEZdXKmjU 731LSfmBsO0QIMicgBcN6WiZS HrsFonLbI7t0H9Jg5BOt94DI0 0 XH41fVFxa1H6pTD9B3DgIUCme mtftnfyjTA9NFGxOMHmcW83Ts 2rfBbcBc4qMWYcWYT2NPOkvIV z H4JgnV4oWoNbAPPnSTQcG5Xlc ZSzBCzgF533JXgwPqR1ZNBxvc ZiG3JyQGGzoXxxQdX7p4T5Js5 Q QWpiuuv3K5BqBcujlLY+PC90Y CEjFL67dKKuzCUfe2jygNo4Lv JrCSTaXQE1wKlkDBfzw9AaORO t I16yuVMb (more content not included)... Normal [facility] Consent for Treatmenton 06-15 Consent for Treatment [id number]#1.00CD:12 7 Normal [facility] Physician Orderon 07-02-2022 Physician Order [id number]#1.00CD:1 27 Normal [facility] XR Spine Lumbosacral Minimum 4 Viewson 07-02-2022 XR Spine Lumbosacral Minimum 4 Views Exam Date/Time: 07/02/2022 10:58 EDT Reason for Exam: Back pain Report IMPRESSION: No acute findings. EXAMINATION/TECHNIQUE: XR Spine Lumbosacral Minimum 4 Views HISTORY: Chronic back pain. COMPARISON: None RESULT: Counting reference: Lumbosacral junction. For the purposes of this report, L4-L5 is the level of the iliac crest. Alignment appears anatomic. No radiographic evidence for acute fracture. Vertebral body heights appear maintained. Disc spaces appear maintained. Mild facet degenerative changes. Sacrum appears intact. SI joints intact. Visualized hips unremarkable. No other significant abnormality. Ordering Provider: JUSTIN MAX FINAL REPORT Dictated: 07/02/2022 11:44 am Juan Ruth MD Signed (Electronic Signature): 07/02/2022 11:44 am Signed by: Juan Ruth MD Transcribed by: WHITNEY Technologist: LILY Technical Comments Radiation Dose: Ka,r in mGy = na DAP = na Normal [facility] Coding Summary.on 03-25-2022 Coding Summary. CD:[id number] Gh0bW w+PGhlYWQ+KE7MCWAaE30nrQI qrO6HW6yJBX3SFVOUOMIAGG6Z QH5vuUY5KFdgW9AwqlLq FfugrRObZH22OYd5DTG6oTjiJ WbrhP7msJZvI4i1MhWpHI96kC 10SCffCRYqLcP7IbSpkcaqsYT y A1bpHkUixWNzIcj+PHRhYmxlI HdpZHRoPScxMDAlJyBzdHlsZT 7gLa0iVRJzCFMqlGlogNFcQuJ j a5oxNXIsKAnwYN3aiFgpW2Aou SV8EJZsa8z8Kb41yXA+PHRkIH H7aEiaWOqzt827FnKte0fmJPO 3 dTNeHFhiXDX4O90hp8B1XGZvX OIkWHK4vGW7zB7abNbbvtxgF2 GltJTlXgF6VKV9iHTvhL3edHu n zxwjeT2dEhk+B05TBL1QVTCCZ R1MIko3I6DxTtrncVF+PC90YW OuST07bHNovTMqw5vzdXv8EiI w LGOnCVK1oYfdZTpiz2PwFKHlD 27jzHDsv2Q8TYInqIbzgKAvVu HubBK6fC6yWRjbcpgvg0usoct n Wspci5eozk95hO94S15gKMnpO IDbHUS5WKFlXXVjaLtztq6coX 9wIi8+XYwjg8ukd0wbkEx5CoA w FQDwyvFezAeuYWK4i8QiTv92R 6OknSmrb0WfVbw6yz03pSBxe8 L9nGV1XWsgTTDblP2cBWiiZkQ 6 HBRjJsNptE36nZXbIReyIm1cc StkcBlxLT2zSDGyytgoXXCidZ 5aPFTzmQBrwXupDL2gDQCoutm m n779WyDfVGF4YUNrmXKcM8Jru L4bWrCiWBIaCBGdY4OxaCOfFO gbQ814VGcoGjA1ATQwpwUvW3T s VCIcnIvpStW7k1L7Ah2Tz7Ncj pauXQE0GHmjMXXwRaO7AgMnOl O7Q5FgBzp3DNOilRqxZT5rU7P h BMFucsjdbkaquTX1JPBrNQGpb Z96tYIoOEjcRt2mr2P7v420VT WaMBHjpH05Ul2kzZxvFIGacOH U mL2lccjno1ybkcryQfSwANDgY Uz9BTf2HHDztZdkKhLhQOH5Xt H1NTU5pRVmyB0btGqjkhthuR1 w Oyc+N97trX0vHOL6DCA3apdwP LJzqbRhGT98BT11E7XuRntakF FibGU+UARhehLbrEghRV9oUdY j y8ptz7TzOBnjD5VoAYUoQPthW dy8ZQPpNFN3kZO3wD6sHZUkCV fsd9Y0pRD5L0GdkcBgsr4tv0l s PSYtGEcrX89jrNNih9G3ALQlg BG1PRAtxEsiKzBzwX60Jtw+PG PghGqth6FnWyhxk4jec8amfZf 9 OmVzEMEnktIkgHzfNJS6s7PbA c24N16fJXcpMEJaUYOjGJDjLJ VmvBsypu5zjW4rIn9+PGNvbCB 3 zZT7jZ0lJMBeNgA2DTolH664J oZsfLBxZiflr8pnp0zczOh2Jc NpCUElabVjgKcxUQT8x4ZgRs7 8 Q96rPEkxFHUqYWBqGZPoBZWlv Qhjmz3pmZ6mUc5+OW6pn4shgf 86vM47eZW+MXIfTVL2kNrwBAl w DMScwF2hCLqmGrU4UPBfTrJso W28eLHiYViiOf3kyLngdVyhLY 5nUGZbionse609YpFjm5hiBVR w lZMvPYaiMEW3B30kr9F6ZWJoL WEhSRY2fBM9iY5rqUprzkgvqM NxuBeuutJngAtmONtcSUzsY59 6 IHRvcDsnPlBhdGllbnQgTmFtZ Kp8U5UdOxu1WJZfxKbzMK3vbJ FdAQjlSe9tnPfdhDxfOC0nJRF p ummei701WbDya6wsLWHwgOChN ChkRLE7C00db7U7RBPfAENeFV L5bPM8aV8etPqbfikzxRZunVo g tpGwgYxxSYmzGEzgV431PEWsk ToyKaBgvwLrCQDatCT4AK32KQ 50bHJzq9J5vXZ1H0IbHUSfolx t qluyqTQ5UMVeQUDuqD62Tl9xc FylRq4fJISpULH9BLOuiPWvT2 QswI2zMkTqWIOsRHEaR2DlqKY t DLvzA076KCqpHkK7DHTjcqQnF 0EtNWCelYagOjC3g1K5Ng4CT8 V1FS92NK60hFEiy1T8bHK9T6A h QXArgxwxtoymnHN4GJGqSPPse N69Bm7wnXntRu2sFNKpLCZ9XE MsaACyO2RfaO7fNmHsOOBsQFF w V9UtgUQbBEfqM797SGceOuQ1J LXiasXvO7CzHBFagVqqBzB9s9 C9Vi4WKVl5QU52PX41tWPvt3F 5 eWC4V4PcBMFiqtdyhggmrDQ9V CIlWLYgoS48Lg6nvWtzGj4bDR LxCYR0KOAzzSVpF0TlsH8vMrT j DPUsSOHtD4KqmOBvSDnrD901E LxzRtT4RIOsayAaN5QeYDObkG lfPtZ0c0J8Mq9PJLPyFP21SLD 5 dKS8ED21SE67Y4LyKjupgZGeo +PHRhYmxlIHdpZHRoPScxMD KzWiFbcPppXD0eBu3oZKTzNCI v kUfsnEZvPrWqd4bbRTZsNKreF W5veKnrF4WypYY5QMIof2c0Zv 07R42cA5LmnMN+YELzwFU0cUO 0 dE0lIjQbEkJ1KFzdY027QiLas LJcKgnad7dci0uimDe6MvY9IV HtytPitAhjKCW8u0QzMe21O76 s IHdpZHRoPSIxNSUiIHZhbGlnb i5duP9jYb8+KFXzdVF6eWN0rQ 6yRiWyQsJ5ETvlJ957FwAruJX v Ywbak1juz3bwrKf5DdEuBOSvi tJwmQirJNP7j1ViTm56E9FytF arz4LsZxk8qo82tEVud6U8gQQ 9 X4JqULIpstwxeFXceXecEZ0yI WQjxtdeIRKmrY0cGTJqO9r6Xa UrKeH3BYdyB8XvpnF0CYMnvFX g OXoqRGU6Y90tj1A9AOBwNAWtF KU2cXH6wK7biPuhukmtgCBuyX hbegIjgIxcTYzzFVooO723VFJ v mAkgFUTzhZ8mTSYhhNIexJehZ Y6bNPZsmqgrGzUIG1KBZLbFUS BMRVNMSUUgQTwvdGQ+PHRkIHN 0 pSuyOUqlGSXdbY9oGBRvB4j4N lEbOzB9CNymB8UuUJKofioeFy 93sI9eGrBpPvA2GDgiW3MilvI 6 EVCqjXVpPTihBTK2Y54pj5A4U KMfEMCsJHW5xSP5aR1joSmhxi ogbGVmdDsgdmVydGljYWwtYWx p D963JVLohKidGfWqVmZ1UcA2X FJ1V8YaJvo6INRwdZfsHY3zkD EaACgxUm7ylVdvsOacJG2zHZW p vcwaBEUczI2hEVQacSPyqXbaT P1cOYCgqrllm040WdDfPBZ1GB GmcVWfI4MiuO2sMyClECWcYVN w D4SysHBkWDnaK893AWbdDvK8L TZaypXxW3KyRTZloIbhDlG0u7 W5Qr7eQBDOHDJxfqluqPF+PHR k LVV6dKidGRqvEMKjmY7pJILuZ 9q7EiMmPjD3XAbdF7LfEPOmnc huHp51lX2oBnJvPkW0DLiuV2C v diK4GKCseZAbJMsoTSY5V65mr 5B3SSIlUDHsHIO0gOQ1fL6ksD lnbjogbGVmdDsgdmVydGljYWw t ZAdrT251ZQTxjFckSmHmzMYqM TwvdGQ+RJJzQRD9cMhvAOvuIB XpbH9aPWLlK4q5FlZwMnB8RBs u A5KnEAPdossbDy91kB1gPkPsQ fE6FFxoO3RfwvM0RSSppWNtCU prYGD0D49xo6W1ZUFjBXLjUQY 7 wYC6zD3qgRuzytltlIQzjCykc vEtsRgzMXklBVurW941AUHdfZ sfGiJhMHSgAY7cjGwvmST+PC9 0 bn84W0AeTfzzNfo1UCYxOEV4o HZ5qZ5dRIHcXMswu5O2iHV2K7 BohyKxta8kd6ffURSkDRklZ87 s lAAfn9G5VXUyiAM3OPNowBciN jUtrT95Sjv+SOWqfWxtr9CoXp zxu3obo5gnuNb9SiDbTYJsuyD s iUltGWV5u6IqGr36I69wXOceI THsFWSwLHIfYEJfpMpjvu7rpS 9wIi8+CMWfqCG2eVX4lC7sAnB l SeC1MHrvO053ZjBrtRMtZshum 8bvx9kfiJy5QkSbMETpokEhlI kxTSE0u2KeEm28O6AjcLjcl7U w Tzb9el63dYXbj2P4aJG8Y1HnW LTvdsbmfTFjmCweEX8qALMalq ftZKLwbJ2yGAVaP2i5GhEdZgT 1 CFbqR5OyhpF0PJAjjRBqKOLyh LLPxN8teefro5scddlvNpFbKY EjOWw6TWo3QUGioFsuHjBnEQY 0 UwW8ZUJ2mSAiiV2wnZtiehuex G9wOyc+IOa3y0ypuHUaTI8lrN S6VZ06JR47wZGqp0D9mQT3S6N h TOTxsrlhvyhcqVW6HCBxSIIiq F80Vt0oxVsuLt2tTPEkUUO2IC GqxQJsT7ClnK9jTgOxITPlWXW w X7DveWSlSMxoU911WTgpXvS6F VPvhhKwG4HaPKQbbPchZiW0x4 A8Jm1PHP19DA41MN36nNNdj2D 5 sZA5B9ZgDAJymqamivtqvRA9X UTiNHFfgG29Mc4tyRuhIe6gVO GoFQM1KDJzyRDaN3IbiP6cPeX j IVRlPVCsK9NxxBEhDJalV966G DcxYeY4CWHfsmVsX7JoYYSemS lbEsM2h4U5Yy6JWo25FR07JC7 8 jYYuo5B6lUD8M1HkGLPrynmbu zagxVB6IWSnMYPehT74Xi9fzN oyJt9tFWXxGCC8IUPsuHGiA0R v fC8lXaUbMPJcYEYaG1EwwLRgE WktG906TGfeXaL0YDIhyhKmE1 XvCPOljNagZgB7j5X7Tw9IAGi l kcz1B4TrPgypvMX+PX61JLSuV I94vEOuoPNcu9ohrGr8XtKdVW EuVGS3jHscPBtpq0FlMFUmF52 s bGFw (more content not included)... Normal [facility] Auto Diffon 03-23-2022 Basophils/100 WBC (Bld) 1.6 % Normal 0.0-2.0 [facility] Comment on above: Order Comment: Order Added by Discern Expert. Performed By: #### 2 822244, 8607174, 9818165, 79819180, 5804069, 6576838, 89262241 ####[address] [place] [address] Basophils/Leukocyt es Auto (Bld) [Pure # fraction] 0.1 E9/L Normal 0.0-0.2 [facility] Comment on above: Order Comment: Order Added by Discern Expert. Performed By: #### 2 643195, 7138687, 8924217, 66107228, 0698070, 2871946, 74941790 ####[address] [place] [address] Eosinophils/100 WBC (Bld) 1.8 % Normal 0.0-8.0 [facility] Comment on above: Order Comment: Order Added by Discern Expert. Performed By: #### 2 717359, 2657101, 1096179, 80649611, 2461518, 8937628, 87732618 ####[address] [address] Eosinophils/Leukoc ytes Auto (Bld) [Pure # fraction] 0.1 E9/L Normal 0.0-0.5 [facility] Comment on above: Order Comment: Order Added by Discern Expert. Performed By: #### 2 627798, 8446754, 5712811, 29540192, 0669702, 1698730, 92293085 ####[address] [place] [address] Lymphocytes/100 WBC (Bld) 31.3 % Normal 14.0-50.0 [facility] Comment on above: Order Comment: Order Added by Discern Expert. Performed By: #### 2 210201, 7269072, 4050459, 74425802, 1333393, 7311684, 66012718 ####[address] [place] [address] Lymphocytes/Leukoc ytes Auto (Bld) [Pure # fraction] 2.2 E9/L Normal 1.0-4.0 [facility] Comment on above: Order Comment: Order Added by Discern Expert. Performed By: #### 2 412420, 9712948, 1294008, 03049021, 5568917, 4651851, 90898189 ####[address] [place] [address] Monocytes/100 WBC (Bld) 10.1 % Normal 4.0-14.0 [facility] Comment on above: Order Comment: Order Added by Discern Expert. Performed By: #### 2 476158, 0061531, 6978376, 22367509, 7131995, 7518999, 23397065 ####[address] [place] [address] Monocytes/Leukocyt es Auto (Bld) [Pure # fraction] 0.7 E9/L Normal 0.2-1.0 [facility] Comment on above: Order Comment: Order Added by Daniel Expert. Performed By: #### 2 010623, 5678612, 9844400, 39551227, 9056708, 8988698, 68510391 ####[address] [place] [address] Neutrophils/100 WBC (Bld) 55.2 % Normal 36.0-75.0 [facility] Comment on above: Order Comment: Order Added by Daniel Expert. Performed By: #### 2 015607, 7066668, 4743382, 98806942, 4974337, 2837616, 68967300 ####[address] [address] Neutrophils/Leukoc ytes Auto (Bld) [Pure # fraction] 3.8 E9/L Normal 2.0-7.5 [facility] Comment on above: Order Comment: Order Added by Daniel Expert. Performed By: #### 2 291730, 9892140, 2909044, 92182685, 8260657, 4174388, 64259092 ####[facility] [address] [place] [address] B hCG Qualon 03-23-2022 Beta hCG Ql Negative Normal [facility] Comment on above: Performed By: #### 2 852822, 4488481, 8760133, 87851700, 6203372, 8440021, 54859718 ####[facility] [address] [place] [address] BMPon 03-23-2022 Creatinine [Mass/Vol] 0.7 mg/dL Normal 0.5-1.3 [facility] Comment on above: Performed By: #### 2 925892, 6963051, 6669967, 04079231, 5408504, 8911780, 46233610 ####[facility] [address] [place] [address] Urea nitrogen [Mass/Vol] 5 mg/dL Normal 5-21 [facility] Comment on above: Performed By: #### 2 974076, 0846856, 2845338, 09947431, 6347741, 3910024, 50667565 ####[facility] [address] [place] [address] Urea nitrogen/Creatinin e [Mass ratio] 7 No Units Low 10-20 [facility] Comment on above: Performed By: #### 2 908727, 9349286, 2976872, 92820590, 1123741, 3771694, 90525265 ####[facility] [address] [place] [address] Anion gap [Moles/Vol] 17 mmol/L High 6-16 [facility] Comment on above: Performed By: #### 2 380430, 0560732, 6885077, 78689460, 4511418, 3890761, 39746579 ####[facility] [address] [place] [address] Calcium [Mass/Vol] 9.3 mg/dL Normal 8.9-11.1 [facility] Comment on above: Performed By: #### 2 723125, 3586433, 8310236, 30363472, 9926848, 7211226, 06862375 ####[facility] [address] [place] [address] Chloride [Moles/Vol] 101 mmol/L Normal 101-111 [facility] Comment on above: Performed By: #### 2 553168, 3006111, 1803504, 36952677, 8405256, 6480660, 07098718 ####[facility] [address] [place] [address] CO2 [Moles/Vol] 24 mmol/L Normal 21-31 [facility] Comment on above: Performed By: #### 2 571312, 3855910, 9406272, 03574814, 1034778, 8292431, 97546901 ####[facility] [address] [place] [address] Glucose [Mass/Vol] 99 mg/dL Normal 55-199 [facility] Comment on above: Result Comment: If t his glucose result represents a fasting glucose, interpretation should refer to the following reference range: 55-99 mg/dL Performed By: #### 2 514660, 5025489, 4258937, 26076858, 5429339, 3764986, 14217926 ####[facility] [address] [place] [address] Potassium [Moles/Vol] 3.5 mmol/L Normal 3.5-5.3 [facility] Comment on above: Performed By: #### 2 009940, 8562416, 7957571, 55167637, 5087795, 5034794, 12664242 ####[facility] [address] [place] [address] Sodium [Moles/Vol] 138 mmol/L Normal 135-145 [facility] Comment on above: Performed By: #### 2 263063, 3964525, 0956390, 76737161, 4556710, 7036769, 28246134 ####[facility] [address] [place] [address] CBC w/ Auto Diffon 2 Erythrocyte distribution width (RBC) [Ratio] 13.0 % Normal 10.9-14.2 [facility] Comment on above: Performed By: #### 2 072548, 4332702, 5793307, 51202894, 1434132, 9264042, 36485512 ####[address] [place] [address] Hematocrit (Bld) [Volume fraction] 39.9 % Normal 34.0-46.0 [facility] Comment on above: Performed By: #### 2 281054, 1970387, 0392097, 57585415, 9936098, 3468440, 06254681 ####[address] [address] Hemoglobin (Bld) [Mass/Vol] 13.5 g/dL Normal 12.0-16.0 [facility] Comment on above: Performed By: #### 2 713490, 1223876, 4726112, 35298103, 7013982, 9209952, 18845926 ####[address] [address] MCH (RBC) [Entitic mass] 33.8 pg Normal 27.0-34.0 [facility] Comment on above: Performed By: #### 2 181627, 9851682, 3845600, 47949090, 5386729, 2725083, 03218375 ####[address] [address] MCHC (RBC) [Mass/Vol] 34.0 g/dL Normal 31.4-36.0 [facility] Comment on above: Performed By: #### 2 982395, 1156177, 5036055, 27473148, 6116650, 6482155, 62100092 ####[address] [address] MCV (RBC) [Entitic vol] 99.5 fL Normal 80.0-100.0 [facility] Comment on above: Performed By: #### 2 384430, 0026118, 1862316, 73642466, 8302536, 6115714, 54571532 ####[address] [address] Platelet mean volume (Bld) [Entitic vol] 8.1 fL Normal 6.4-10.8 [facility] Comment on above: Performed By: #### 2 772624, 7329036, 6330227, 67656894, 5877629, 2597043, 64819822 ####[facility] [address] [place] [address] Platelets (Bld) [#/Vol] 365.0 E9/L Normal 150.0-500.0 [facility] Comment on above: Performed By: #### 2 126440, 7060121, 0184198, 37219878, 8027558, 5186084, 07827310 ####[facility] [address] [place] [address] RBC (Bld) [#/Vol] 4.0 E12/L Low 4.3-5.9 [facility] Comment on above: Performed By: #### 2 944178, 6201243, 3399477, 11385544, 3077191, 2686397, 22735623 ####[facility] [address] [place] [address] WBC corrected for nucl RBC Auto (Bld) [#/Vol] 6.9 E9/L Normal 4.0-11.0 [facility] Comment on above: Performed By: #### 2 528322, 8723535, 2559572, 90362073, 5882352, 3426191, 59360672 ####[facility] [address] [place] [address] CHEMISTRYOrdered By: SYSTEM SYSTEM on 03-23-2022 Albumin [Mass/Vol] 4.3 g/dL Normal 3.3 - 5.0 gm/dL [facility] Albumin/Globulin [Mass ratio] 1.5 {ratio} Normal 1.1 - 2.2 [facility] ALP [Catalytic activity/Vol] 50 [iU]/d Normal 21 - 98 Int._Unit/L [facility] ALT No additional P-5'-P [Catalytic activity/Vol] 20 [iU]/d Normal 6 - 46 Int._Unit/L [facility] Anion gap [Moles/Vol] 17 mmol/L High 6 - 16 mEq/L [facility] AST [Catalytic activity/Vol] 19 [iU]/d Normal 5 - 43 Int._Unit/L [facility] Bilirubin [Mass/Vol] 0.4 mg/dL Normal 0.0 - 1.1 mg/dL [facility] Bilirubin.direct [Mass/Vol] mg/dL Normal 0.1 - 0.4 mg/dL [facility] Bilirubin.indirect [Mass or moles/Vol] Unable to Calculate mg/dL Invalid Interpretation Code 0.1 - 0.9 mg/dL [facility] Calcium [Mass/Vol] 9.3 mg/dL Normal 8.9 - 11. 1 mg/dL [facility] Chloride [Moles/Vol] 101 mmol/L Normal 101 - 111 mmol/L [facility] CO2 [Moles/Vol] 24 mmol/L Normal 21 - 31 mmol/L [facility] Creatinine [Mass/Vol] 0.7 mg/dL Normal 0.5 - 1.3 mg/dL [facility] GFR/1.73 sq M.predicted among blacks MDRD (S/P/Bld) [Vol rate/Area] mL/min/1.73 m2 Normal >=59mL/min/1.7 3 m2 [facility] [place] S GFR/1.73 sq M.predicted among non-blacks MDRD (S/P/Bld) [Vol rate/Area] mL/min/1.73 m2 Normal >=59mL/min/1.7 3 m2 [facility] [place] S Globulin (S) [Mass/Vol] 2.8 g/dL Normal 1.4 - 4.0 gm/dL [facility] Glucose [Mass/Vol] 99 mg/dL Normal 55 - 199 mg/dL [facility] Lipase [Catalytic activity/Vol] 24 U/L Normal 13 - 58 unit/L [facility] Potassium [Moles/Vol] 3.5 mmol/L Normal 3.5 - 5.3 mmol/L [facility] Protein [Mass/Vol] 7.1 g/dL Normal 6.0 - 7.8 gm/dL [facility] Sodium [Moles/Vol] 138 mmol/L Normal 135 - 145 mmol/L [facility] Urea nitrogen [Mass/Vol] 5 mg/dL Normal 5 - 21 mg/dL [facility] Urea nitrogen/Creatinin e [Mass ratio] 7 mg/mg Low 10 - 20 [facility] Remisol Consent for Treatmenton Consent for Treatment [id number]:12 7 Normal [facility] Discharge Instructionson Discharge Instructions [id number]:12 7 Normal [facility] ED Clinical Summaryon 2021 ED Clinical Summary [place] [id number] ED Clinical Summary Person Information Name: BERENICE SANTOS [facility] Age: 26 Years : 1995 Sex: Female Language: Sinhala PCP: JUSTIN MAX DO Marital Status: Visit Id: Visit Reason: Blood in stool; BLOOD IN BOWLS Speciality: Acuity: 3 Enc Type: Emergency Med Service: Emergency Arrival: 03/23/2022 13:42:10 Discharge: 03/23/2022 15:45:05 LOS: 000 02:03 Checkin: 03/23/2022 13:42:10 Checkout: 03/23/2022 15:45:05 Dispo Type: Home (Routine DC) EVENTS: Event Name Event Status Request Date/Time Start Date/Time Complete Date/Time Arrive Complete 03/23/2022 13:42:10 03/23/2022 13:42:10 03/23/2022 13:42:10 Document Home Meds Request 03/23/2022 13:42:10 Triage Complete 03/23/2022 13:42:10 03/23/2022 13:50:58 03/23/2022 13:50:58 Bed Assign Complete 03/23/2022 13:51:22 03/23/2022 13:51:22 03/23/2022 13:51:22 Dr Exam Complete 03/23/2022 13:51:22 03/23/2022 13:52:13 03/23/2022 13:52:13 RN Exam Complete 03/23/2022 13:51:22 03/23/2022 15:11:07 03/23/2022 15:11:07 Registration Complete 03/23/2022 13:52:13 03/23/2022 14:30:54 03/23/2022 14:30:54 Dr Exam Complete 03/23/2022 13:55:41 03/23/2022 13:55:41 03/23/2022 13:55:41 Meds Admin Complete 03/23/2022 14:00:19 03/23/2022 14:29:05 Pending Labs Complete 03/23/2022 14:00:19 03/23/2022 15:13:36 Lab Complete 03/23/2022 14:00:19 03/23/2022 15:13:36 Urine Collect Complete 03/23/2022 14:00:19 03/23/2022 15:13:36 Pending Labs Complete 03/23/2022 14:22:18 03/23/2022 14:22:18 03/23/2022 14:47:22 Lab Complete 03/23/2022 14:22:18 03/23/2022 14:22:18 03/23/2022 14:47:22 Pending Labs Complete 03/23/2022 14:26:32 03/23/2022 14:26:32 03/23/2022 14:26:40 Lab Complete 03/23/2022 14:26:32 03/23/2022 14:26:32 03/23/2022 14:26:40 Reg Complete Request 03/23/2022 14:30:54 Reg Bed Request Complete 03/23/2022 14:30:54 03/23/2022 14:30:54 03/23/2022 14:30:54 Pending Labs Complete 03/23/2022 14:41:40 03/23/2022 14:41:40 03/23/2022 14:41:41 Discharge Complete 03/23/2022 15:24:00 03/23/2022 15:45:11 03/23/2022 15:45:11 Transfer Complete 03/23/2022 15:45:11 03/23/2022 15:45:11 03/23/2022 15:45:11 ADDR[address]: [id number] [place] [id number] PHYS DOC NOTES: MEDICAL INFORMATION: Prescriptions Given: New Medications [facility], [address] [place], [place] [id number], [phone] ondansetron (Zofran ODT 4 mg Tab-Dis) 1 Tablets By Mouth every 8 hours as needed Nausea/Vomiting. Refills: 0. Medications to Continue with No Changes Other Medications escitalopram (Lexapro 10 mg Tab) 1 Tablets By Mouth every day. esomeprazole (Nexium) By Mouth every day. montelukast (Singulair 10 mg Tab) 1 Tablets By Mouth every day. PATIENT EDUCATION INFORMATION: Instructions: Lower Gastrointestinal Bleeding; Bloody Diarrhea; Rectal Bleeding, Rzkn-dl-Bmwe Follow up: With: Address: When: Roma HAWKINS [address] [facility] [place], [place] [id number] Business (1) In 3 days 03/26/2022 Comments: Follow-up with Dr. Hawkins for further evaluation of your blood in your stool. With: Address: When: JUSTIN MAX [address] [facility] [facility] [address] [place] [address] Business (1) In 3 days 03/26/2022 Comments: Follow-up with your primary care provider in 3 to 5 days. If symptoms worsen, do not improve, or new symptoms arise please report back to emergency department for further evaluation. DIAGNOSIS: Blood in stool Normal [facility] ED Note-Physicianon 03-23-20 ED Note-Physician Basic Information Time Seen: Alphonso MAURICE, Dmitry Hall. 03/23/2022 13:52 Chief Complaint pt reports blood in stool and in the toilet that started today. denies pain. History of Present Illness 26-year-old female reports to emergency department with chief complaint of blood in her stool in 20 today. She reports that she knows quite a lot of blood for her in her toilet today after a bowel movement. Reports that it seemed quite out of breath, which prior to emergency department. She states that now that she thinks moderate, there may have been very scant amount of blood last couple of days, but today was definitely the worst. She states that she did have an episode of this 1 year ago, which she was seen for and did have follow-up with GI for an upper and lower scopes, but because they did not have any more episodes, she did not go to them. She states that she is not in any pain. States that she feels slightly nauseous, but denies any abdominal pain. She denies any feelings of fever, lightheadedness, or weakness. She denies being on any blood thinners. Reports that she does have a history of degenerative disc disease. She denies taking any medications otherwise. Review of Systems A 10 point review of systems is negative except as noted above. Medical and Surgical History: Reviewed and noted Social history: Lives at home Family History: Reviewed. Tobacco: Denies Physical Exam Vitals & Measurements T: 36.7 ?C(Oral) HR: 94(Peripheral) RR: 14 BP: 84/69 SpO2: 100% HT: 157 cm WT: 80.1 kg BMI: 32.5 General: The patient appears well and in no apparent distress. Patient is resting comfortably on bed. Afebrile Skin: Warm, dry, no pallor noted. Head: Normocephalic, atraumatic Neck: No JVD Eye: PERRLA, EOMI ENT: Moist mucus membranes Cardiovascular: Regular rate normal peripheral perfusion. Radial pulses +2 bilaterally Respiratory: No respiratory distress no accessory muscle use no obvious audible wheezing. Lung sounds clear to auscultation Chest Wall: no deformity Musculoskeletal: normal ROM, no deformity, no swelling GI: No obvious distention soft nontender nondistended no guarding rebounding or rigidity Neurological: A&O moves all extremities equal strength and symmetry. No weakness is noted. No focal neurological defects. Psychiatric: Cooperative and appropriate Medical Decision Making 18-year-old female reports to the emergency department with a chief complaint of blood in her stool. Reports that this happened dorsally today, but has noticed that happening last couple days. Denies any systemic symptoms. Denies any abdominal pain. She reports that she has had a history of this happening before about a year ago, where she did have a GI follow-up scheduled, but did cancel her upper and lower scopes due to her not having any more symptoms. States that it is not painful for her to defecate, but does notice of blood. Based on her complaint, we did order lab work. Lab work was reviewed and noted. Patient's hemoglobin is stable and hematocrit is stable as well. Lab work otherwise is benign. When the patient did have her blood draw, she stated that she likely has a vasovagal type episode, and is almost passes out whenever she gets a needle put in there. This did happen here in the emergency department, as she became hypotensive from a vasovagal episode. We did give her IV fluids and patient did become back to normal tensive. Patient was normotensive throughout her stay elsewise. Based on her concerns, I discussed that she needs to continue to follow-up with GI for further evaluation of this GI bleeding. I discussed that since this red blood, is most likely diverticulitis, but still needs a further work-up. Patient was understanding. I did give her Dr. Hawkins for further evaluation. Follow-up with your primary care provider in 3 to 5 days. If symptoms worsen, do not improve, or new symptoms arise please report back to emergency department for further evaluation. The patient was understanding and agreeable to plan moving forward. Assessment/Plan Blood in stool (K92.1: Melena) Orders: ondansetron, 4 mg = 1 tab(s), Oral, q8hr, PRN Nausea/Vomiting, # 12 tab(s), Refills(s) 0, Pharmacy: [id number], 157, cm, 03/23/22 13:50:00 EST, Height/Length Dosing, 80.1, kg, 03/23/22 13:50:00 EST, Weight Dosing ondansetron, 4 mg = 2 mL, Injection, IV Push, Once, Stop date 03/23/22 13:59:00 EST, STAT, Start date 03/23/22 13:59:00 EST, 03/23/22 13:59:00 EST Sodium Chloride 0.9% intravenous solution, 1,000 mL, Soln-IV, IV, Once, Stop date 03/23/22 13:59:00 EST, STAT, Start date 03/23/22 13:59:00 EST, mL/hr, Infuse over 61, minute(s) Sodium Chloride 0.9% intravenous solution, Soln-IV, Misc, Once, Stop date 03/23/22 14:08:26 EST, Physician Stop, 03/23/22 14:08:26 EST Automated Diff Basic Metabolic Panel Beta hCG Qual CBC w/ Auto Diff eGFR Extra Blue Tube Hepatic Function Panel Lipase Level UA With Cult Reflex Medications Administered Given NS1 (more content not included)... Normal [facility] Comment on above: Result Comment: Elec tronically Signed By: Dmitry Werner PA-C\.br\Date and Time Signed: 03/23/22 16:58 EST\.br\Electronically Co-Signed By: Rodney Johnson M.D.\.br\Date and Time Co-Signed: 03/23/22 18:50 EST ED Patient Education Noteon 03-23-2022 ED Patient Education Note Gastroenterology Lower Gastrointestinal Bleeding Lower gastrointestinal (GI) bleeding is the result of bleeding from the colon, rectum, or anal area. The colon is the last part of the digestive tract, where stool, also called feces, is formed. If you have lower GI bleeding, you may see blood in or on your stool. It may be bright red. Lower GI bleeding often stops without treatment. Continued or heavy bleeding needs emergency treatment at the hospital. What are the causes? Lower GI bleeding may be caused by: ? A condition that causes pouches to form in the colon over time (diverticulosis). ? Swelling and irritation (inflammation) in areas with diverticulosis (diverticulitis). ? Inflammation of the colon (inflammatory bowel disease). ? Swollen veins in the rectum (hemorrhoids). ? Painful tears in the anus (anal fissures), often caused by passing hard stools. ? Cancer of the colon or rectum. ? Noncancerous growths (polyps) of the colon or rectum. ? A bleeding disorder that impairs the formation of blood clots and causes easy bleeding (coagulopathy). ? An abnormal weakening of a blood vessel where an artery and a vein come together (arteriovenous malformation). What increases the risk? You are more likely to develop this condition if: ? You are older than 60 years of age. ? You take aspirin or NSAIDs on a regular basis. ? You take anticoagulant or antiplatelet drugs. ? You have a history of high-dose X-ray treatment (radiation therapy) of the colon. ? You recently had a colon polyp removed. What are the signs or symptoms? Symptoms of this condition include: ? Bright red blood or blood clots coming from your rectum. ? Bloody stools. ? Black or maroon-colored stools. ? Pain or cramping in the abdomen. ? Weakness or dizziness. ? Racing heartbeat. How is this diagnosed? This condition may be diagnosed based on: ? Your symptoms and medical history. ? A physical exam. During the exam, your health care provider will check for signs of blood loss, such as low blood pressure and a rapid pulse. ? Tests, such as: ? Flexible sigmoidoscopy. In this procedure, a flexible tube with a camera on the end is used to examine your anus and the first part of your colon to look for the source of bleeding. ? Colonoscopy. This is similar to a flexible sigmoidoscopy, but the camera can extend all the way to the uppermost part of your colon. ? Blood tests to measure your red blood cell count and to check for coagulopathy. ? An imaging study of your colon to look for a bleeding site. In some cases, you may have X-rays taken after a dye or radioactive substance is injected into your bloodstream (angiogram). How is this treated? Treatment for this condition depends on the cause of the bleeding. Heavy or persistent bleeding is treated at the hospital. Treatment may include: ? Getting fluids through an IV tube inserted into one of your veins. ? Getting blood through an IV tube (blood transfusion). ? Stopping bleeding through high-heat coagulation, injections of certain medicines, or applying surgical clips. This can all be done during a colonoscopy. ? Having a procedure that involves first doing an angiogram and then blocking blood flow to the bleeding site (embolization). ? Stopping some of your regular medicines for a certain amount of time. ? Having surgery to remove part of the colon. This may be needed if bleeding is severe and does not respond to other treatment. Follow these instructions at home: ? Take hdni-wii-jkmkibj and prescription medicines only as told by your health care provider. You may need to avoid aspirin, NSAIDs, or other medicines that increase bleeding. ? Eat foods that are high in fiber. This will help keep your stools soft. These foods include whole grains, legumes, fruits, and vegetables. Eating 1?3 prunes each day works well for many people. ? Drink enough fluid to keep your urine clear or pale yellow. ? Keep all follow-up visits as told by your health care provider. This is important. Contact a health care provider if: ? Your symptoms do not improve. Get help right away if: ? Your bleeding increases. ? You feel light-headed or you faint. ? You feel weak. ? You have severe cramps in your back or abdomen. ? You pass large blood clots in your stool. ? Your symptoms get worse. This information is not intended to replace advice given to you by your health care provider. Make sure you discuss any questions you have with your health care provider. Document Released: 08/18/2016 Document Revised: 07/26/2019 Document Reviewed: 08/18/2016 [employer] Patient Education ? 2019 [employer] Rectal Bleeding Rectal bleeding is when blood comes out of the opening of the butt (anus). People with this kind of bleeding may notice bright red blood in their underwear or in the toilet after they poop (have a bowel movement). They may also (more content not included)... Normal [facility] ED Patient Summaryon 022 ED Patient Summary (Inserted Image. Laureen ble to display) [place] [id number] Patient Discharge Instructions Person Information Name: BERENICE SANTOS Age: 26 Years Arrival Date: 03/23/2022 13:42:10 Discharge Diagnosis: Blood in stool Primary Care Physician: JUSTIN MAX DO Provider Information Primary Provider: Rodney Johnson M.D. Advanced Driller Machine:None The exam and treatment you received in the Emergency Department were for an urgent problem and are not intended as complete care. It is important that you follow up with a doctor, nurse practitioner, or physician?s assistant women's basketball coach for ongoing care. If your symptoms become worse or you do not improve as expected and you are unable to reach your usual health care provider, you should return to the Emergency Department. We are available 24 hours a day. BERENICE SANTOS has been given the following list of patient education materials, prescriptions and follow-up instructions: Follow-up Instructions: With: Address: When: Roma HAWKINS [address] [place], [place] [id number] Business (1) In 3 days 03/26/2022 Comments: Follow-up with Dr. Hawkins for further evaluation of your blood in your stool. With: Address: When: JUSTIN MAX [address] [place] [address] Business (1) In 3 days 03/26/2022 Comments: Follow-up with your primary care provider in 3 to 5 days. If symptoms worsen, do not improve, or new symptoms arise please report back to emergency department for further evaluation. In the event that this physician does not participate in your insurance network, please consult with your insurance company to find a nearby participating provider. Patient Education Materials: Lower Gastrointestinal Bleeding; Bloody Diarrhea; Rectal Bleeding, Qhga-zv-Uqts A MESSAGE TO ALL PATIENTS REGARDING OPIOIDS PRESCRIPTION OPIOIDS: WHAT YOU NEED TO KNOW Prescription opioids can be used to help relieve svetpbxl-ya-bhrklo pain and are often prescribed following a surgery or injury, or for certain health conditions. These medications can be an important part of the treatment but also come with serious risks. It is important to work with your healthcare provider to make sure you are getting the safest, most effective care. WHAT ARE THE RISKS AND SIDE EFFECTS OF OPIOID USE? Prescription opioids carry serious risks of addiction and overdose, especially with prolonged use. An opioid overdose, often marked by slowed breathing, can cause sudden . The use of prescription opioids can have a number of side effects as well, even when taken as directed: ? Tolerance?meaning you might need to take more of the medication for the same pain relief ? Physical dependence?meaning you have symptoms of withdrawal when a medication is stopped ? Increased sensitivity to pain ? Constipation ? Nausea, vomiting, and dry mouth ? Sleepiness and dizziness ? Confusion ? Depression ? Low levels of testosterone that can result in lower sex drive, energy, and strength ? Itching and sweating RISKS ARE GREATER WITH: ? History of drug misuse, substance use disorder, or overdose ? Mental health conditions (such as depression or anxiety) ? Sleep apnea ? Older age (65 years and older) ? Avoid alcohol while taking prescription opioids. Also, unless specifically advised by your health care provider, medications to avoid include: ? Benzodiazepines (such as Xanax or Valium) ? Muscle relaxants (such as Soma or Flexeril) ? Hypnotics (such as Ambien or Lunesta) ? Other prescription opioids KNOW YOUR OPTIONS Talk to your health care provider about ways to manage your pain that don?t involve prescription opioids. Some of these options may actually work better and have fewer risks and side effects. Options may include: ? Pain relievers such as acetaminophen, ibuprofen, and naproxen ? Some medication that are also used for depression or seizures ? Physical therapy and exercise ? Cognitive behavioral therapy, a psychological, goal-directed approach, in which patients learn how to modify physical, behavioral, and emotional triggers of pain and stress. IF YOU ARE PRESCRIBED OPIOIDS FOR PAIN: ? Never take opioids in greater amounts or more often than prescribed. ? Follow up with your primary health care provider. o Work together to create a plan on how to manage your pain. o Talk about ways to help manage your pain that don?t involve prescription opioids. o Talk about any and all concerns and side effects. ? Help prevent misuse and abuse o Never sell or share prescription opioids. o Never use another person?s prescription opioids. ? Store prescription opioids in a secure place and out of reach of others (this may include visitors, children, friends, and family). ? Safely dispose of unused prescription opioids: Find your comm (more content not included)... Normal [facility] HEMATOLOGYOrdered By: SYSTEM SYSTEM on 03-23-2022 Basophils/100 WBC (Bld) 1.6 % Normal 0.0 - 2.0 % [facility] HemeAutoSS Basophils/Leukocyt es Auto (Bld) [Pure # fraction] 0.1 E9/L Normal 0.0 - 0.2 E9/L [facility] HemeAutoSS Eosinophils/100 WBC (Bld) 1.8 % Normal 0.0 - 8.0 % [facility] HemeAutoSS Eosinophils/Leukoc ytes Auto (Bld) [Pure # fraction] 0.1 E9/L Normal 0.0 - 0.5 E9/L [facility] HemeAutoSS Lymphocytes/100 WBC (Bld) 31.3 % Normal 14.0 - 50.0 % [facility] HemeAutoSS Lymphocytes/Leukoc ytes Auto (Bld) [Pure # fraction] 2.2 E9/L Normal 1.0 - 4.0 E9/L [facility] HemeAutoSS Monocytes/100 WBC (Bld) 10.1 % Normal 4.0 - 14.0 % [facility] HemeAutoSS Monocytes/Leukocyt es Auto (Bld) [Pure # fraction] 0.7 E9/L Normal 0.2 - 1.0 E9/L [facility] HemeAutoSS Neutrophils/100 WBC (Bld) 55.2 % Normal 36.0 - 75.0 % [facility] HemeAutoSS Neutrophils/Leukoc ytes Auto (Bld) [Pure # fraction] 3.8 E9/L Normal 2.0 - 7.5 E9/L [facility]eAutoSS HEMATOLOGYOrdered By: Lise Dumont on 03-23-2022 Erythrocyte distribution width (RBC) [Ratio] 13.0 % Normal 10.9 - 14.2 % [facility]eAutoSS Hematocrit (Bld) [Volume fraction] 39.9 % Normal 34.0 - 46.0 % [facility]eAuto[facility] Hemoglobin (Bld) [Mass/Vol] 13.5 g/dL Normal 12.0 - 16.0 gm/dL [facility]eAuto[facility] MCH (RBC) [Entitic mass] 33.8 pg Normal 27.0 - 34.0 pg [facility]eAutoSS MCHC (RBC) [Mass/Vol] 34.0 g/dL Normal 31.4 - 36.0 gm/dL [facility] HemeAutoSS MCV (RBC) [Entitic vol] 99.5 fL Normal 80.0 - 100.0 fL [facility]eAutoSS Platelet mean volume (Bld) [Entitic vol] 8.1 fL Normal 6.4 - 10.8 fL [facility]eAutoSS Platelets (Bld) [#/Vol] 365.0 E9/L Normal 150.0 - 500.0 E9/L [facility]eAuto[facility] RBC (Bld) [#/Vol] 4.0 E12/L Low 4.3 - 5.9 E12/L [facility]eAuto[facility] WBC corrected for nucl RBC Auto (Bld) [#/Vol] 6.9 E9/L Normal 4.0 - 11.0 E9/L [facility] Hep Func Panelon 03-23-2022 Bilirubin.indirect [Mass or moles/Vol] UTC Abnormal 0.1-0.9 [facility] Comment on above: Result Comment: Resu lt verified by Discern Rule. Performed result UTC (Unable to Calculate) was sent as an Alpha code due the inability to calculate a valid numeric value. Performed By: #### 2 [id number], 9445229, 8299360, 19594496, 1322042, 8794866, [id number] ####[place] [address] [place] [address] Albumin [Mass/Vol] 4.3 g/dL Normal 3.3-5.0 [facility] Comment on above: Performed By: #### 2 012517, 5034211, 7011097, 62978994, 3681468, 2999671, 38727386 ####[address] [address] Albumin/Globulin (S) [Mass conc ratio] 1.5 Normal 1.1-2.2 [facility] Comment on above: Performed By: #### 2 927460, 3519170, 0382670, 93997824, 4376225, 7031894, 26250127 ####[address] [address] ALP [Catalytic activity/Vol] 50 Int._Unit/L Normal 21-98 [facility] Comment on above: Performed By: #### 2 123115, 2207700, 8103062, 95260468, 1636197, 8922883, 84525459 ####[address] [address] ALT No additional P-5'-P [Catalytic activity/Vol] 20 Int._Unit/L Normal 6-46 [facility] Comment on above: Performed By: #### 2 127318, 0679898, 6477056, 98838394, 8501846, 6095066, 44860445 ####[address] [place] [address] AST [Catalytic activity/Vol] 19 Int._Unit/L Normal 5-43 [facility] Comment on above: Performed By: #### 2 592194, 5349203, 0591997, 13967013, 7726612, 0545403, 74375919 ####[facility] [address] [place] [address] Bilirubin [Mass/Vol] 0.4 mg/dL Normal 0.0-1.1 [facility] Comment on above: Performed By: #### 2 605713, 9226218, 2263399, 72205524, 8863348, 9273756, 59935549 ####[facility] [address] [place] [address] Bilirubin.direct [Mass/Vol] mg/dL Normal 0.1-0.4 [facility] Comment on above: Performed By: #### 2 585664, 7462804, 7572595, 07679097, 3905987, 4853398, 57873989 ####[address] [address] Globulin (S) [Mass/Vol] 2.8 g/dL Normal 1.4-4.0 [facility] Comment on above: Performed By: #### 2 171580, 0784506, 2843988, 33751953, 7847454, 4326185, 27835145 ####[address] [address] Protein [Mass/Vol] 7.1 g/dL Normal 6.0-7.8 [facility] Comment on above: Performed By: #### 2 748447, 6806195, 1555361, 18646057, 7455645, 7441228, 36784534 ####[address] [address] Lipase Levelon 03-23-2022 Lipase [Catalytic activity/Vol] 24 U/L Normal 13-58 [facility] Comment on above: Performed By: #### 2 954856, 1238752, 0562373, 54483737, 8731461, 3551098, 74341381 ####[address] [place] [address] SEROLOGYOrdered By: Dana Garsia on 03-23-2022 Beta hCG Ql Negative (03/23/22 2:15 PM) Normal [facility] [place] Sero UA With Cult Reflexon 2021 Bilirubin Ql (U) Negative Normal Negative [facility] Comment on above: Performed By: #### 1 [id number] ####[facility] [address] [place] [address] Clarity (U) CLEAR Normal Clear [facility] Comment on above: Performed By: #### 1 [id number] ####[facility] [address] [place] [address] Color (U) YELLOW Normal Yellow [facility] Comment on above: Performed By: #### 1 7161414 ####[address] [address] Epithelial cells.squamous LM.HPF (Urine sed) [#/Area] 0-2 Normal 0-2 [facility] Comment on above: Performed By: #### 1 5655254 ####[facility] [address] [place] [address] Glucose Test strip (U) [Mass/Vol] Negative Normal Negative [facility] Comment on above: Performed By: #### 1 [id number] ####[facility] [address] [place] [address] Hemoglobin Ql (U) Negative Normal Negative [facility] Comment on above: Performed By: #### 1 1871788 ####[facility] [address] [place] [address] Ketones (U) [Mass/Vol] Negative Normal Negative [facility] Comment on above: Performed By: #### 1 7616009 ####[facility] [address] [place] [address] [place].plasma/Lit hium.RBC (Bld) [Mass ratio] 0-3 Normal 0-3 [facility] Comment on above: Performed By: #### 1 6034133 ####[facility] [address] [place] [address] Nitrite Ql (U) Negative Normal Negative [facility] Comment on above: Performed By: #### 1 [id number] ####[address] [address] pH (U) 6.5 [pH] Invalid Interpretation Code 5.0-9.0 [facility] Comment on above: Performed By: #### 1 8256578 ####[address] [address] Protein (U) [Mass/Vol] Negative Normal Negative [facility] Comment on above: Performed By: #### 1 3985287 ####[address] [address] Specific gravity (U) [Rel density] 1.010 Invalid Interpretation Code 1.005-1.030 [facility] Comment on above: Performed By: #### 1 [id number] ####[address] [address] Type of Urine collection method Clean Catch Normal [facility] Comment on above: Performed By: #### 1 1949888 ####[place] [address] Urobilinogen Qn (U) 0.2 {Chiara'U}/dL Normal 0.0-1.0 [facility] Comment on above: Performed By: #### 1 3736200 ####[address] [address] WBC Auto Ql (U) Negative Normal Negative [facility] Comment on above: Performed By: #### 1 0448960 ####[address] [address] WBC LM.HPF (Urine sed) [#/Area] 0-5 Normal 0-5 [facility] Comment on above: Performed By: #### 1 1924442 ####[address] [address] URINALYSISOrdered By: Mychal Garsia on 03-23-2022 Bilirubin Ql (U) Negative (03/23/22 2:54 PM) Normal Negative [facility] UA Auto SS Clarity (U) Clear (03/23/22 2:54 PM) Normal Clear [facility] UA Auto SS Color (U) Yellow (03/23/22 2:54 PM) Normal Yellow [facility] UA Auto SS Epithelial cells.squamous LM.HPF (Urine sed) [#/Area] 0-2 /HPF Normal 0-2/HPF [facility] UA Auto SS Glucose Test strip (U) [Mass/Vol] Negative (03/23/22 2:54 PM) Normal Negative [facility] UA Auto SS Hemoglobin Ql (U) Negative (03/23/22 2:54 PM) Normal Negative [facility] UA Auto SS Ketones (U) [Mass/Vol] Negative (03/23/22 2:54 PM) Normal Negative [facility] UA Auto SS [place].plasma/Lit hium.RBC (Bld) [Mass ratio] 0-3 /HPF Normal 0-3/HPF [facility] UA Auto SS Nitrite Ql (U) Negative (03/23/22 2:54 PM) Normal Negative [facility] UA Auto SS pH (U) 6.5 *NA* (03/23/22 2:54 PM) Invalid Interpretation Code 5.0 - 9.0 [facility] UA Auto SS Protein (U) [Mass/Vol] Negative (03/23/22 2:54 PM) Normal Negative [facility] UA Auto SS Specific gravity (U) [Rel density] 1.010 *NA* (03/23/22 2:54 PM) Invalid Interpretation Code 1.005 - 1.030 [facility] UA Auto SS UA Spec Desc Clean Catch (03/23/22 2:54 PM) Normal FT UA Auto SS Urobilinogen Qn (U) 0.9748881 {Chiara'U}/dL Normal 0.0 - 1.0 EU/dL [facility] UA Auto SS WBC Auto Ql (U) Negative (03/23/22 2:54 PM) Normal Negative [facility] UA Auto SS WBC LM.HPF (Urine sed) [#/Area] 0-5 /HPF Normal 0-5/HPF [facility] UA Auto SS eGFRon 03-23-2022 GFR/1.73 sq M.predicted among blacks MDRD (S/P/Bld) [Vol rate/Area] mL/min/{1.73_m2} Normal >=59 [facility] Comment on above: Order Comment: Order added by Discern Expert. Result Comment: eGFR is race adjusted. AA=. Performed By: #### 2 322231, 6969104, 3990883, 58126941, 3547766, 6894777, 68276787 ####[facility] [address] [place] [address] GFR/1.73 sq M.predicted among non-blacks MDRD (S/P/Bld) [Vol rate/Area] mL/min/{1.73_m2} Normal >=59 [facility] Comment on above: Order Comment: Order added by Discern Expert. Result Comment: Mobile Solutions Architect juan pablo kidney disease could be indicated at eGFR's of less than 60 mL/min/1.73m2. Kidney failure is indicated at less than 15 mL/min/1.73m2. Performed By: #### 2 288400, 2554846, 7260327, 41845995, 2227265, 9130613, 01231402 ####[facility] [address] [place] [address] COVID + FLU Quick Testingon 01-06-2022 SARS-CoV-2 (COVID-19) RNA MAKEDA+probe Ql (Unsp spec) Negative [facility] [employer] Other COVID + FLU Quick Testing Negative [facility] [employer] Other COVID + FLU Quick Testing [facility] [employer] Other Lower GI hemoglobin IA Ql (S tl)on 06-21-2021 Occult Blood, Fecal - x1 [facility] [employer] Other Vital Signs Date Time Vital Sign Value Performing Clinician Facility 02-22-2023 14:30-0500 Diastolic blood pressure 74 mm[Hg] [facility] 02-22-2023 14:30-0500 Heart rate 74 /min [facility] 02-22-2023 14:30-0500 Respiratory rate 18 /min [facility] 02-22-2023 14:30-0500 SaO2% (BldA) [Mass fraction] 98 % [facility] 02-22-2023 14:30-0500 Systolic blood pressure 126 mm[Hg] [facility] 02-22-2023 12:10-0500 Body temperature 98.06 [degF] [facility] 02-22-2023 12:10-0500 Diastolic blood pressure 64 mm[Hg] [facility] 02-22-2023 12:10-0500 Heart rate 66 /min [facility] 02-22-2023 12:10-0500 Respiratory rate 18 /min [facility] 02-22-2023 12:10-0500 SaO2% (BldA) [Mass fraction] 99 % [facility] 02-22-2023 12:10-0500 Systolic blood pressure 105 mm[Hg] [facility] 12-12-2022 08:45-0400 Body height 157.48 cm Justin Mansoor Other [facility] Other 12-12-2022 08:45-0400 Body mass index (BMI) [Ratio] 32.74 kg/m2 Justin Mansoor Other [facility] Other 12-12-2022 08:45-0400 Body temperature 96.9 [degF] Justin Mansoor Other [facility] Other 12-12-2022 08:45-0400 Body weight 81.19 kg Justin Mansoor Other [facility] Other 12-12-2022 08:45-0400 Diastolic blood pressure 78 mm[Hg] Justin Mansoor Other [facility] Other 12-12-2022 08:45-0400 Respiratory rate 20 /min Justin Mansoor Other [facility] Other 12-12-2022 08:45-0400 SaO2% (BldA) [Mass fraction] 97 % Justin Mansoor Other [facility] Other 12-12-2022 08:45-0400 Systolic blood pressure 122 mm[Hg] Justin Mansoor Other [facility] Other 11-11-2022 11:15-0400 Body height 157.48 cm Justin Mansoor Other [facility] Other 11-11-2022 11:15-0400 Body mass index (BMI) [Ratio] 31.09 kg/m2 Justin Mansoor Other [facility] Other 11-11-2022 11:15-0400 Body temperature 96.9 [degF] Justin Mansoor Other [facility] Other 11-11-2022 11:15-0400 Body weight 77.11 kg Justin Mansoor Other [facility] Other 11-11-2022 11:15-0400 Diastolic blood pressure 78 mm[Hg] Justin Mansoor Other [facility] Other 11-11-2022 11:15-0400 Respiratory rate 20 /min Justin Mansoor Other [facility] Other 11-11-2022 11:15-0400 SaO2% (BldA) [Mass fraction] 97 % Justin Mansoor Other [facility] Other 11-11-2022 11:15-0400 Systolic blood pressure 114 mm[Hg] Justin Mansoor Other [facility] Other 11-09-2022 13:43-0400 Blood Pressure Location Olena Resendez [facility] 11-09-2022 13:43-0400 Body temperature 97.7 [degF] Olena Courtneymetz [facility] 11-09-2022 13:43-0400 Diastolic blood pressure 69 mm[Hg] Olena Resendez [facility] 11-09-2022 13:43-0400 Heart rate 111 /min Olena Resendez [facility] 11-09-2022 13:43-0400 Systolic blood pressure 104 mm[Hg] Olena Resendez [facility] 10-12-2022 11:45-0400 Body height 157.48 cm Justin Mansoor Other [facility] Other 10-12-2022 11:45-0400 Body mass index (BMI) [Ratio] 31.09 kg/m2 Justin Mansoor Other [facility] Other 10-12-2022 11:45-0400 Body temperature 97.4 [degF] Justin Mansoor Other [facility] Other 10-12-2022 11:45-0400 Body weight 77.11 kg Justin Mansoor Other [facility] Other 10-12-2022 11:45-0400 Diastolic blood pressure 68 mm[Hg] Justin Mansoor Other [facility] Other 10-12-2022 11:45-0400 Respiratory rate 20 /min Justin Mansoor Other [facility] [employer] Other 10-12-2022 11:45-0400 SaO2% (BldA) [Mass fraction] 98 % Justin Mansoor Other [facility] [employer] Other 10-12-2022 11:45-0400 Systolic blood pressure 112 mm[Hg] Justin Mansoor Other [facility] [employer] Other 09-26-2022 14:25-0400 Blood Pressure Location Brandon SALAM [facility] 09-26-2022 14:25-0400 Diastolic blood pressure 57 mm[Hg] Brandon SALAM [facility] 09-26-2022 14:25-0400 Heart rate 97 /min Brandon SALAM [facility] 09-26-2022 14:25-0400 Respiratory rate 16 /min Brandon SALAM [facility] 09-26-2022 14:25-0400 SaO2% (BldA) [Mass fraction] 97 % Brandon SALAM [facility] 09-26-2022 14:25-0400 Systolic blood pressure 107 mm[Hg] Brandon SALAM [facility] 09-26-2022 14:10-0400 Blood Pressure Location Brandon SALAM [facility] 09-26-2022 14:10-0400 Diastolic blood pressure 65 mm[Hg] Brandon SALAM [facility] 09-26-2022 14:10-0400 Heart rate 98 /min Brandon SALAM [facility] 09-26-2022 14:10-0400 Respiratory rate 20 /min Bradnon SALAM [facility] 09-26-2022 14:10-0400 SaO2% (BldA) [Mass fraction] 97 % Brandon SALAM [facility] 09-26-2022 14:10-0400 Systolic blood pressure 105 mm[Hg] Brandon SALAM [facility] 09-26-2022 13:59-0400 Blood Pressure Location Brandon SALAM [facility] 09-26-2022 13:59-0400 Diastolic blood pressure 65 mm[Hg] Brandon SALAM [facility] 09-26-2022 13:59-0400 Heart rate 101 /min Brandon SALAM [facility] 09-26-2022 13:59-0400 Respiratory rate 17 /min Brandon SALAM [facility] 09-26-2022 13:59-0400 SaO2% (BldA) [Mass fraction] 98 % Brandon SALAM [facility] 09-26-2022 13:59-0400 Systolic blood pressure 99 mm[Hg] Brandon SALAM [facility] 09-26-2022 13:44-0400 Body temperature 97.52 [degF] Brandon SALAM [facility] 09-26-2022 13:27-0400 Respiratory rate 18 /min Brnadon SALAM [facility] 09-26-2022 13:05-0400 Body temperature 96.8 [degF] Brandon SALAM [facility] 09-26-2022 13:05-0400 Respiratory rate 19 /min Roma HAWKINS [facility] 09-14-2022 11:45-0400 Body height 157.48 cm Justin Mansoor Other [facility] Other 09-14-2022 11:45-0400 Body mass index (BMI) [Ratio] 30.18 kg/m2 Justin Mansoor Other [facility] Other 09-14-2022 11:45-0400 Body temperature 97.2 [degF] Justin Mansoor Other [facility] Other 09-14-2022 11:45-0400 Body weight 74.84 kg Justin Mansoor Other [facility] Other 09-14-2022 11:45-0400 Diastolic blood pressure 72 mm[Hg] Justin Mansoor Other [facility] Other 09-14-2022 11:45-0400 Respiratory rate 20 /min Justin Mansoor Other [facility] Other 09-14-2022 11:45-0400 SaO2% (BldA) [Mass fraction] 98 % Justin Mansoor Other [facility] Other 09-14-2022 11:45-0400 Systolic blood pressure 112 mm[Hg] Justin Mansoor Other [facility] Other 08-17-2022 12:15-0400 Body height 157.48 cm Justin Mansoor Other [facility] Other 08-17-2022 12:15-0400 Body mass index (BMI) [Ratio] 29.99 kg/m2 Justin Mansoor Other [facility] Other 08-17-2022 12:15-0400 Body temperature 97.2 [degF] Justin Mansoor Other [facility] Other 08-17-2022 12:15-0400 Body weight 74.39 kg Justin Mansoor Other [facility] Other 08-17-2022 12:15-0400 Diastolic blood pressure 82 mm[Hg] Justin Mansoor Other [facility] Other 08-17-2022 12:15-0400 Respiratory rate 20 /min Justin Mansoor Other [facility] Other 08-17-2022 12:15-0400 SaO2% (BldA) [Mass fraction] 97 % Justin Mansoor Other [facility] Other 08-17-2022 12:15-0400 Systolic blood pressure 28 mm[Hg] Justin Mansoor Other [facility] Other 08-05-2022 08:12-0400 Diastolic blood pressure 68 mm[Hg] Román Dominguez [facility] [place] 08-05-2022 08:12-0400 Heart rate 105 /min Román Dominguez [facility] 08-05-2022 08:12-0400 SaO2% (BldA) [Mass fraction] 98 % Román Dominguez [facility] 08-05-2022 08:12-0400 Systolic blood pressure 117 mm[Hg] Román Dominguez [facility] 07-27-2022 09:30-0400 Blood Pressure Location Olena Resendez [facility] 07-27-2022 09:30-0400 Body temperature 97.34 [degF] Olena Resendez [facility] 07-27-2022 09:30-0400 Diastolic blood pressure 70 mm[Hg] Olena Resendez [facility] 07-27-2022 09:30-0400 Heart rate 102 /min Olena Resendez [facility] 07-27-2022 09:30-0400 Systolic blood pressure 107 mm[Hg] Olena Resendez [facility] 07-19-2022 12:30-0400 Body height 157.48 cm Justin Mansoor Other [facility] Other 07-19-2022 12:30-0400 Body mass index (BMI) [Ratio] 30.36 kg/m2 Justin Mansoor Other [facility] Other 07-19-2022 12:30-0400 Body temperature 97.4 [degF] Justin Mansoor Other [facility] Other 07-19-2022 12:30-0400 Body weight 75.3 kg Justin Mansoor Other [facility] Other 07-19-2022 12:30-0400 Diastolic blood pressure 68 mm[Hg] Justin Mansoor Other [facility] Other 07-19-2022 12:30-0400 Respiratory rate 20 /min Justin Manosor Other [facility] Other 07-19-2022 12:30-0400 SaO2% (BldA) [Mass fraction] 97 % Justin Mansoor Other [facility] Other 07-19-2022 12:30-0400 Systolic blood pressure 116 mm[Hg] Justin Mansoor Other [facility] Other 06-06-2022 11:45-0500 Body height 157.48 cm Justin Mansoor Other [facility] Other 06-06-2022 11:45-0500 Body mass index (BMI) [Ratio] 31.46 kg/m2 Justin Mansoor Other [facility] Other 06-06-2022 11:45-0500 Body temperature 96.8 [degF] Justin Mansoor Other [facility] Other 06-06-2022 11:45-0500 Body weight 78.02 kg Justin Mansoor Other [facility] Other 06-06-2022 11:45-0500 Diastolic blood pressure 72 mm[Hg] Justin Mansoor Other [facility] Other 06-06-2022 11:45-0500 Respiratory rate 20 /min Justin Mansoor Other [facility] Other 06-06-2022 11:45-0500 SaO2% (BldA) [Mass fraction] 97 % Justin Mansoor Other [facility] Other 06-06-2022 11:45-0500 Systolic blood pressure 122 mm[Hg] Justin Mansoor Other [facility] Other 04-21-2022 11:30-0500 Body height 157.48 cm Justin Mansoor Other [facility] Other 04-21-2022 11:30-0500 Body mass index (BMI) [Ratio] 31.64 kg/m2 Justin Mansoor Other [facility] Other 04-21-2022 11:30-0500 Body temperature 97.5 [degF] Justin Mansoor Other [facility] Other 04-21-2022 11:30-0500 Body weight 78.47 kg Justin Mansoor Other [facility] Other 04-21-2022 11:30-0500 Diastolic blood pressure 68 mm[Hg] Justin Mansoor Other [facility] Other 04-21-2022 11:30-0500 Respiratory rate 20 /min Justin Mansoor Other [facility] Other 04-21-2022 11:30-0500 SaO2% (BldA) [Mass fraction] 99 % Justin Mansoor Other [facility] Other 04-21-2022 11:30-0500 Systolic blood pressure 110 mm[Hg] Justin Mansoor Other [facility] Other 03-23-2022 15:00-0500 Diastolic blood pressure 66 mm[Hg] [facility] 03-23-2022 15:00-0500 Heart rate 75 /min [facility] 03-23-2022 15:00-0500 Mean blood pressure 81 mm[Hg] [facility] 03-23-2022 15:00-0500 Systolic blood pressure 112 mm[Hg] [facility] 03-23-2022 14:25-0500 Diastolic blood pressure 69 mm[Hg] [facility] 03-23-2022 14:25-0500 Heart rate 94 /min [facility] 03-23-2022 14:25-0500 Respiratory rate 14 /min [facility] 03-23-2022 14:25-0500 SaO2% (BldA) [Mass fraction] 100 % [facility] 03-23-2022 14:25-0500 Systolic blood pressure 84 mm[Hg] [facility] 03-23-2022 13:48-0500 Body temperature 98.06 [degF] [facility] 03-23-2022 13:48-0500 Diastolic blood pressure 84 mm[Hg] [facility] 03-23-2022 13:48-0500 Heart rate 100 /min [facility] 03-23-2022 13:48-0500 Respiratory rate 16 /min [facility] 03-23-2022 13:48-0500 SaO2% (BldA) [Mass fraction] 99 % [facility] 03-23-2022 13:48-0500 Systolic blood pressure 128 mm[Hg] [facility] 12-02-2021 11:00-0400 Body height 157.48 cm Justin Mansoor Other [facility] Other 12-02-2021 11:00-0400 Body mass index (BMI) [Ratio] 34.56 kg/m2 Justin Mansoor Other [facility] Other 12-02-2021 11:00-0400 Body temperature 97.6 [degF] Justin Mansoor Other [facility] Other 12-02-2021 11:00-0400 Body weight 85.73 kg Justin Mansoor Other [facility] Other 12-02-2021 11:00-0400 Diastolic blood pressure 82 mm[Hg] Justin Mansoor Other [facility] Other 12-02-2021 11:00-0400 Respiratory rate 20 /min Justin Mansoor Other [facility] Other 12-02-2021 11:00-0400 SaO2% (BldA) [Mass fraction] 98 % Justin Mansoor Other [facility] Other 12-02-2021 11:00-0400 Systolic blood pressure 122 mm[Hg] Justin Mansoor Other [facility] Other 11-05-2021 11:45-0400 Body height 157.48 cm Justin Mansoor Other [facility] Other 11-05-2021 11:45-0400 Body mass index (BMI) [Ratio] 35.3 kg/m2 Justin Mansoor Other [facility] Other 11-05-2021 11:45-0400 Body temperature 98.6 [degF] Justin Mansoor Other [facility] Other 11-05-2021 11:45-0400 Body weight 87.54 kg Justin Mansoor Other [facility] Other 11-05-2021 11:45-0400 Diastolic blood pressure 82 mm[Hg] Justin Mansoor Other [facility] Other 11-05-2021 11:45-0400 Respiratory rate 20 /min Justin Mansoor Other [facility] Other 11-05-2021 11:45-0400 SaO2% (BldA) [Mass fraction] 98 % Justin Mansoor Other [facility] Other 11-05-2021 11:45-0400 Systolic blood pressure 128 mm[Hg] Justin Mansoor Other [facility] Other 10-05-2021 13:45-0400 Body height 157.48 cm Justin Mansoor Other [facility] Other 10-05-2021 13:45-0400 Body mass index (BMI) [Ratio] 36.21 kg/m2 Justin Mansoor Other [facility] Other 10-05-2021 13:45-0400 Body temperature 98.3 [degF] Justin Mansoor Other [facility] Other 10-05-2021 13:45-0400 Body weight 89.81 kg Justin Mansoor Other [facility] Other 10-05-2021 13:45-0400 Diastolic blood pressure 62 mm[Hg] Justin Mansoor Other [facility] Other 10-05-2021 13:45-0400 Respiratory rate 20 /min Justin Mansoor Other [facility] Other 10-05-2021 13:45-0400 SaO2% (BldA) [Mass fraction] 98 % Justin Mansoor Other [facility] Other 10-05-2021 13:45-0400 Systolic blood pressure 96 mm[Hg] Justin Mansoor Other [facility] Other 08-12-2021 12:54-0400 Blood Pressure Location Brandon SALAM [facility] 08-12-2021 12:54-0400 Diastolic blood pressure 84 mm[Hg] Brandon SALAM [facility] 08-12-2021 12:54-0400 Heart rate 75 /min Brandon SALAM [facility] 08-12-2021 12:54-0400 Respiratory rate 16 /min Brandon SALAM [facility] 08-12-2021 12:54-0400 Systolic blood pressure 132 mm[Hg] Brandon SALAM [facility] 06-08-2021 12:15-0500 Body height 157.48 cm Justin Mansoor Other [facility] Other 06-08-2021 12:15-0500 Body mass index (BMI) [Ratio] 36.76 kg/m2 Justin Mansoor Other [facility] Other 06-08-2021 12:15-0500 Body temperature 98.9 [degF] Justin Mansoor Other [facility] Other 06-08-2021 12:15-0500 Body weight 91.17 kg Justin Mansoor Other [facility] Other 06-08-2021 12:15-0500 Diastolic blood pressure 82 mm[Hg] Justin Mansoor Other [facility] Other 06-08-2021 12:15-0500 Respiratory rate 20 /min Justin Mansoor Other [facility] Other 06-08-2021 12:15-0500 SaO2% (BldA) [Mass fraction] 97 % Justin Mansoor Other [facility] Other 06-08-2021 12:15-0500 Systolic blood pressure 122 mm[Hg] Justin Mansoor Other [facility] Other Encounters Encounter Date Encounter Type Care Provider Facility Start: 04-05-2023 End: 04-05-2023 ambulatory William Payne Other [facility] Other Start: 04-05-2023 Encounter by juan Payne [facility] [place] Start: 03-02-2023 End: 03-02-2023 ambulatory JOCE DAVIDSON Not Available Start: 02-22-2023 End: 02-22-2023 Emergency department patient visit Rodney Johnson [place] Start: 02-22-2023 End: 02-22-2023 Emergency department patient visit Rodney Johnson [facility] Start: 02-01-2023 End: 02-01-2023 ambulatory Justin Mansoor Other [facility] Other Start: 02-01-2023 Telephone encounter Justin Mansoor [facility] Start: 01-11-2023 End: 01-11-2023 ambulatory William Payne Other [facility] Other Start: 01-11-2023 Encounter by [employer] William Payne [facility] [place] Start: 12-30-2022 End: 12-30-2022 ambulatory Justin Mansoor Other [facility] Other Start: 12-30-2022 Telephone encounter Justin Mansoor [facility] Start: 12-16-2022 End: 12-16-2022 ambulatory Justin Mansoor Other [facility] Other Start: 12-16-2022 Encounter by [employer] r link Justin Mansoor [facility] Start: 12-15-2022 End: 12-15-2022 ambulatory Justin Mansoor Other [facility] Other Start: 12-15-2022 Encounter by [employer] r link Justin Mansoor [facility] Start: 12-12-2022 End: 12-12-2022 ambulatory Justin Mansoor Other [facility] Other Start: 12-12-2022 Office outpatient visit 15 minutes Justin Mansoor [facility] Start: 11-30-2022 End: 11-30-2022 ambulatory Justin Mansoor Other [facility] Other Start: 11-30-2022 Encounter by [employer] r link Justin Mansoor [facility] Start: 11-28-2022 End: 11-29-2022 ambulatory William Felter Facility:[facility] Start: 11-15-2022 End: 11-15-2022 ambulatory William Felter Other [facility] Other Start: 11-15-2022 Office outpatient visit 15 minutes William Payne [facility] [place] Start: 11-14-2022 End: 11-14-2022 ambulatory Justin Mansoor Other [facility] Other Start: 11-14-2022 Telephone encounter Justin Mansoor [facility] Start: 11-11-2022 End: 11-11-2022 ambulatory Justin Mansoor Other [facility] Other Start: 11-11-2022 Office outpatient visit 15 minutes Justin Mansoor [facility] Start: 11-11-2022 Telephone encounter Justin Mansoor [facility] Start: 11-09-2022 End: 11-10-2022 ambulatory Olena Resendez Facility:[facility] Start: 11-09-2022 End: 11-09-2022 Patient encounter procedure Olena Resendez [facility] Start: 11-03-2022 End: 11-03-2022 ambulatory William Payne Other [facility] Other Start: 11-03-2022 Encounter by [employer] link William Payne [facility] [place] Start: 11-01-2022 End: 11-01-2022 ambulatory Justin Mansoor Other [facility] Other Start: 11-01-2022 Telephone encounter Justin Mansoor [facility] Start: 10-31-2022 End: 10-31-2022 ambulatory Justin Mansoor Other [facility] Other Start: 10-31-2022 Encounter by compute r link Justin Mansoor [facility] Start: 10-26-2022 End: 10-26-2022 ambulatory Justin Mansoor Other [facility] Other Start: 10-26-2022 Encounter by [employer] r link Justin Mansoor [facility] Start: 10-21-2022 End: 10-21-2022 ambulatory Justin Mansoor Other [facility] Other Start: 10-21-2022 Encounter by [employer] r link Justin Mansoor [facility] Start: 10-12-2022 End: 10-12-2022 ambulatory Justin Mansoor Other [facility] Other Start: 10-12-2022 Office outpatient visit 15 minutes Justin Mansoor [facility] Start: 10-10-2022 End: 10-10-2022 ambulatory William Payne Other [facility] Other Start: 10-10-2022 Telephone encounter William LAU [employer] Start: 10-06-2022 End: 10-06-2022 ambulatory William Payne Facility:[facility] Start: 10-06-2022 End: 10-06-2022 ambulatory DO Justin M. Mansoor Work Phone: [facility] Work Phone: Start: 10-06-2022 End: 10-06-2022 Patient encounter procedure DO Justin Mansoor Work Phone: [facility] Start: 10-05-2022 End: 10-05-2022 ambulatory William Payne Facility:[facility] Start: 10-05-2022 End: 10-05-2022 ambulatory DO Justin Mottagles Work Phone: [facility] Work Phone: Start: 10-05-2022 End: 10-05-2022 Patient encounter procedure DO Justin Mansoor Work Phone: [facility] [address] Work Phone: Start: 09-30-2022 End: 09-30-2022 ambulatory Justin Mansoor Other [facility] Other Start: 09-30-2022 Encounter by [employer] Justin Mansoor [facility] Start: 09-29-2022 End: 09-29-2022 ambulatory William Jazzaleah Other [facility] Other Start: 09-29-2022 Telephone encounter William Payne [facility] [place] Start: 09-28-2022 End: 09-28-2022 ambulatory Justin Mansoor Other [facility] Other Start: 09-28-2022 Telephone encounter Justin Mansoor [facility] Start: 09-26-2022 End: 09-27-2022 ambulatory Brandon SALAM Facility[place] Start: 09-26-2022 End: 09-26-2022 Patient encounter procedure Brandon SALAM [facility] Start: 09-19-2022 End: 09-19-2022 ambulatory Justin Mansoor Other [facility] Other Start: 09-19-2022 Encounter by [employer] Justin Mansoor [facility] Start: 09-14-2022 End: 09-14-2022 ambulatory Justin Mansoor Other [facility] Other Start: 09-14-2022 Office outpatient visit 25 minutes Justin Mansoor [facility] Start: 09-14-2022 Telephone encounter Justin Mansoor [facility] Start: 08-24-2022 End: 08-24-2022 ambulatory Justin Mansoor Other [facility] Other Start: 08-24-2022 Encounter by compute r link Justin Mansoor [facility] Start: 08-24-2022 Telephone encounter Justin Mansoor [facility] Start: 08-23-2022 End: 08-23-2022 ambulatory Justin Mansoor Other [facility] Other Start: 08-23-2022 Encounter by compute r link Justin Mansoor [facility] Start: 08-17-2022 End: 08-17-2022 ambulatory Justin Mansoor Other [facility] Other Start: 08-17-2022 Office outpatient visit 15 minutes Justin Mansoor [facility] Start: 08-16-2022 End: 08-16-2022 ambulatory Justin Mansoor Other [facility] Other Start: 08-16-2022 Encounter by compute r link Justin Mansoor [facility] Start: 08-10-2022 End: 08-10-2022 ambulatory Justin Mansoor Other [facility] Other Start: 08-10-2022 Encounter by compute r link Justin Mansoor [facility] Start: 08-05-2022 End: 08-06-2022 ambulatory Román Dominguez Facility:[facility] Start: 08-05-2022 End: 08-05-2022 Patient encounter procedure Roámn Dominguez [facility] Start: 08-02-2022 ambulatory Román Lynn [place] Facilit y:[facility] Start: 07-29-2022 End: 07-30-2022 ambulatory Olena David Resendez Facility[facility] Start: 07-29-2022 End: 07-29-2022 Patient encounter procedure JUSTIN M MANSOOR [facility] Start: 07-27-2022 End: 07-28-2022 ambulatory Olena David Resendez Facility:[facility] Start: 07-27-2022 End: 07-27-2022 Patient encounter procedure Olena A Mal [facility] Start: 07-22-2022 End: 07-22-2022 ambulatory Justin Mansoor Other [facility] Other Start: 07-22-2022 Telephone encounter Justin Mansoor [facility] Start: 07-19-2022 End: 07-19-2022 ambulatory Justin Mansoor Other [facility] Other Start: 07-19-2022 Office outpatient visit 25 minutes Justin Mansoor [facility] Start: 07-06-2022 End: 07-06-2022 ambulatory Justin Mansoor Other [facility] Other Start: 07-06-2022 Encounter by juan Duran [facility] Start: 07-06-2022 Telephone encounter Justin Mansoor [facility] Start: 07-02-2022 End: 07-03-2022 ambulatory JUSTIN M MANSOOR Facility[facility] Start: 07-02-2022 End: 07-02-2022 Patient encounter procedure JUSTIN M MANSOOR [facility] Start: 06-27-2022 End: 06-27-2022 ambulatory Justin Mansoor Other [facility] Other Start: 06-27-2022 Telephone encounter Justin Mansoor [facility] Start: 06-24-2022 End: 06-24-2022 ambulatory Justin Mansoor Other [facility] Other Start: 06-24-2022 Encounter by [employer] r link Justin Mansoor [facility] Start: 06-20-2022 End: 06-20-2022 ambulatory Justin Mansoor Other [facility] Other Start: 06-20-2022 Telephone encounter Justin Mansoor [facility] Start: 06-14-2022 Encounter by [employer] r link Justin Mansoor [facility] Start: 06-14-2022 Telephone encounter Justin Mansoor [facility] Start: 06-14-2022 End: 06-14-2022 ambulatory Justin M. Mansoor [facility] Other Start: 06-13-2022 End: 06-13-2022 ambulatory Justin Mansoor Other [facility] Other Start: 06-13-2022 Telephone encounter Justin Mansoor [facility] Start: 06-06-2022 End: 06-06-2022 ambulatory Justin Mansoor Other [facility] Other Start: 06-06-2022 Office outpatient visit 25 minutes Justin Mansoor [facility] Start: 05-24-2022 End: 05-24-2022 ambulatory Justin Mansoor Other [facility] Other Start: 05-24-2022 Encounter by compute r link Justin Mansoor [facility] Start: 05-16-2022 End: 05-16-2022 ambulatory Justin Mansoor Other [facility] Other Start: 05-16-2022 Telephone encounter Justin Mansoor [facility] Start: 05-09-2022 End: 05-09-2022 ambulatory Justin Mansoor Other [facility] Other Start: 05-09-2022 Encounter by compute r link Justin Mansoor [facility] Start: 04-23-2022 End: 04-23-2022 ambulatory Justin Mansoor Other [facility] Other Start: 04-23-2022 Encounter by compute r link Justin Mansoor [facility] Start: 04-21-2022 End: 04-21-2022 ambulatory Justin Mansoor Other [facility] Other Start: 04-21-2022 Encounter by compute r link Justin Mansoor [facility] Start: 04-21-2022 Office outpatient visit 15 minutes Justin Mansoor [facility] Start: 04-03-2022 End: 04-03-2022 ambulatory Justin Mansoor Other [facility] Other Start: 04-03-2022 Encounter by compute r link Justin Mansoor [facility] Start: 03-24-2022 End: 03-24-2022 ambulatory Justin Mansoor Other [facility] Other Start: 03-24-2022 Telephone encounter Justin Mansoor [facility] Start: 03-23-2022 End: 03-23-2022 Emergency department patient visit Rodney Johnson Facility[place] Start: 03-23-2022 End: 03-23-2022 Emergency department patient visit Rodney Johnson [facility] Start: 03-07-2022 End: 03-07-2022 ambulatory Justin Mansoor Other [facility] Other Start: 03-07-2022 Encounter by [employer] r link Justin Mansoor [facility] Start: 02-10-2022 End: 02-10-2022 ambulatory Justin Mansoor Other [facility] Other Start: 02-10-2022 Encounter by [employer] r link Justin Mansoor [facility] Start: 01-24-2022 End: 01-24-2022 ambulatory Justin Mansoor Other [facility] Other Start: 01-24-2022 Nursing evaluation o f patient and report Justin Mansoor [facility] Start: 01-18-2022 End: 01-18-2022 ambulatory Justin Mansoor Other [facility] Other Start: 01-18-2022 Encounter by [employer] r link Justin Mansoor [facility] Start: 01-18-2022 Telephone encounter Justin Mansoor [facility] Start: 01-12-2022 End: 01-12-2022 ambulatory Justin Mansoor Other [facility] Other Start: 01-12-2022 Telephone encounter Justin Mansoor [facility] Start: 01-06-2022 End: 01-06-2022 ambulatory Justin Mansoor Other [facility] Other Start: 01-06-2022 Office outpatient visit 15 minutes Justin Mansoor [facility] Start: 01-06-2022 Telephone encounter Justin Mansoor [facility] Start: 12-14-2021 End: 12-14-2021 ambulatory Justin Mansoor Other [facility] Other Start: 12-14-2021 Encounter by compute r link Justin Mansoor [facility] Start: 12-02-2021 End: 12-02-2021 ambulatory Justin Mansoor Other [facility] Other Start: 12-02-2021 Office outpatient visit 15 minutes Justin Mansoor [facility] Start: 11-22-2021 End: 11-22-2021 ambulatory Justin Mansoor Other [facility] Other Start: 11-22-2021 Telephone encounter Justin Mansoor [facility] Start: 11-17-2021 End: 11-17-2021 ambulatory Justin Mansoor Other [facility] Other Start: 11-17-2021 Telephone encounter Justin Mansoor [facility] Start: 11-16-2021 End: 11-16-2021 ambulatory Justin Mansoor Other [facility] Other Start: 11-16-2021 Telephone encounter Justin Mansoor [facility] Start: 11-05-2021 End: 11-05-2021 ambulatory Justin Mansoor Other [facility] Other Start: 11-05-2021 Office outpatient visit 15 minutes Justin Mansoor [facility] Start: 10-22-2021 End: 10-22-2021 ambulatory Justin Mansoor Other [facility] Other Start: 10-22-2021 Encounter by [employer] r link Justin Mansoor [facility] Start: 10-05-2021 End: 10-05-2021 ambulatory Justin Mansoor Other [facility] Other Start: 10-05-2021 Office outpatient visit 15 minutes Justin Mansoor [facility] Start: 09-27-2021 End: 09-27-2021 ambulatory Justin Mansoor Other [facility] Other Start: 09-27-2021 Encounter by [employer] r link Justin Mansoor [facility] Start: 09-01-2021 End: 09-01-2021 ambulatory Justin Mansoor Other [facility] Other Start: 09-01-2021 Encounter by [employer] r link Justin Mansoor [facility] Start: 08-23-2021 End: 08-23-2021 ambulatory Johana Duran Other [facility] Other Start: 08-23-2021 Telephone encounter Johana Seymourwood [facility] Start: 08-18-2021 End: 08-18-2021 ambulatory Justin Mansoor Other [facility] Other Start: 08-18-2021 Telephone encounter Justin Mansoor [facility] Start: 08-12-2021 End: 11-22-2021 Recurring Roma HAWKINS [facility] Start: 08-12-2021 End: 08-12-2021 Patient encounter procedure Roma HAWKINS [facility] Start: 08-05-2021 End: 08-05-2021 ambulatory Justin Mansoor Other [facility] Other Start: 08-05-2021 Encounter by compute r link Justin Mansoor [facility] Start: 06-21-2021 End: 06-21-2021 ambulatory Justin Mansoor Other [facility] Other Start: 06-21-2021 Telephone encounter Justin Mansoor [facility] Start: 06-08-2021 End: 06-08-2021 ambulatory Justin Mansoor Other [facility] Other Start: 06-08-2021 Office outpatient visit 15 minutes Justin Mansoor [facility] Start: 02-26-2021 End: 02-26-2021 ambulatory Justin Mansoor Other [facility] Other Start: 02-26-2021 Nursing evaluation o f patient and report Justin Mansoor [facility] Start: 02-26-2021 Telephone encounter Justin Mansoor [facility] Procedures Date Procedure Procedure Detail Performing Clinician Start: 10-06-2022 Radiography of thoracic spine DO Justin Ru ggles Work Phone: Start: 10-05-2022 Plain X-ray of right shoulder DO Justin Ru ggles Work Phone: Start: 10-05-2022 X-ray of cervical spine DO Justin Mansoor Work Phone: Start: 09-26-2022 Colonoscopy Brandon SALAM Start: 09-26-2022 Esophagogastroduodenoscopy and closure of duodenal fistula Brandon SALAM None (qualifier value) Brandon SALAM Immunizations Immunization Date Immunization Notes Care Provider Fa [facility] 01-24-2022 influenza virus vaccine, unspecified formulation Olena Mal [facility] 01-24-2022 influenza, injectable, quadrivalent, contains preservative Justin Mansoor Other [facility] Other 02-26-2021 influenza virus vaccine, unspecified formulation Olena Mal [facility] 02-26-2021 influenza, injectable, quadrivalent, contains preservative Justin Mansoor Other [facility] Other 02-15-2021 influenza virus vaccine, unspecified formulation Brandonaleah HAWKINS [facility] 02-11-2020 influenza virus vaccine, unspecified formulation Olena Mal [facility] 02-11-2020 influenza, injectable, quadrivalent, contains preservative Justin Mansoor Other [facility] Other 01-22-2019 influenza, injectable, quadrivalent, contains preservative Justin Mansoor Other [facility] Other 01-22-2019 influenza virus vaccine, unspecified formulation Olena Mal [facility] 12-08-2011 meningococcal ACWY vaccine, unspecified formulation Olena Mal [facility] 12-08-2011 tetanus toxoid, reduced diphtheria toxoid, and acellular pertussis vaccine, adsorbed Olenacesia CourtneyMal [facility] 09-08-1998 DTaP, unspecified formulation Olena Mal [facility] 09-08-1998 measles, mumps and rubella virus vaccine Olena Mal [facility] 08-17-1994 measles, mumps and rubella virus vaccine Olena Mal [facility] 1993 hepatitis B vaccine, pediatric or pediatric/adolescen t dosage Olena Mal [facility] 1993 Hib, unspecified formulation Olena Mal [facility] 1993 Hib, unspecified formulation Olena Mal [facility] 1993 hepatitis B vaccine, pediatric or pediatric/adolescen t dosage Olena Mal [facility] 1993 Hib, unspecified formulation Olena Mal [facility] 1993 hepatitis B vaccine, pediatric or pediatric/adolescen t dosage Olena Mal [facility] NEGATED: Highlighted row has not occurred! 3 SARS-CoV-2 mRNA (cindyn 5y-11y) vaccine Román Dominguez [facility] [place] NEGATED: Highlighted row has not occurred! 9 influenza, injectable, quadrivalent, contains preservative Patient Objection Justin Mansoor Other [facility] Other NEGATED: Highlighted row has not occurred! 9 influenza, injectable, quadrivalent, contains preservative Patient Objection Justin Mansoor Other [facility] Other NEGATED: Highlighted row has not occurred! 8 influenza, injectable, quadrivalent, contains preservative Patient Objection Justin Mansoor Other [facility] Other NEGATED: Highlighted row has not occurred! 8 influenza, injectable, quadrivalent, contains preservative Patient Objection Justin Mansoor Other [facility] Other NEGATED: Highlighted row has not occurred! 8 influenza, injectable, quadrivalent, contains preservative Patient Objection Justin Mansoor Other [facility] Other Payers Date Payer Category Payer Unknown [id number] 2022 Self-pay [id number] 2022 Blue [employer] Blue Shield [id number] 2022 Unknown [id number] 1993 Unknown [id number] 2.16.8 [id number] 1993 Unknown [id number] 2.16.8 [id number] 1993 Unknown [id number] 2.16.8 [id number] 1993 Unknown [id number] 2.16.8 40.1.826736.3.579.2.727 1993 Unknown [id number] 2.16.8 40.1.139390.3.579.2.727 1993 Unknown [id number] 2.16.8 40.1.571927.3.579.2.727 1993 Unknown [id number] 2.16.8 40.1.567053.3.579.2.727 1993 Unknown [id number] 2.16.8 40.1.354873.3.579.2.727 1993 Unknown [id number] 2.16.8 40.1.691796.3.579.2.727 1993 Unknown [id number] 2.16.8 40.1.559810.3.579.2.727 1993 Unknown [id number] 2.16.840 .[id number] Medicaid [employer] [id number] Unknown [facility] [id number] Unknown [id number] 2.16.8 [id number] Unknown [id number] 2.16.8 40.1.952085.3.579.2.531 Unknown [id number] 2.16.8 40.1.815813.3.579.2.531 Unknown [id number] 2.16.8 40.1.268781.3.579.2.531 Social History Date Type Detail Facility Start: 08-12-2021 End: 11-09-2022 Tobacco smoking status Heavy tobacco smoker (finding) [facility] [employer] Other Comment on above: Quit 2 yrs ago Tobacco smoking status Never [facility] Comment on above: Quit 2 yrs ago Sex Assigned At Female [facility] [employer] Other Start: 1995 Sex Assigned At Female [facility] Functional Status Date Assessment Result Facility 02-22-2023 Functional Status N/A [facility] 11-09-2022 Functional Status N/A [facility] 09-26-2022 Functional Status N/A [facility] 08-05-2022 Functional Status N/A [facility] [place] 07-27-2022 Functional Status N/A [facility] 03-23-2022 Functional Status N/A [facility] Clinical Notes 05-18-2020 to 04-05-2023 Note Date & Type Note Facility 04-05-2023 Evaluation note Encounter Date Diagnosis Assessment Notes Mar, Thoracic back pain (ICD-10 - M54.6) [facility] Other 11-08-2023 Evaluation + Plan noteExtracted from: Title:ED Note Author:Alphonso MAURICE, Dmitry Sharma te:02/22/23 Vomiting during (O 21.9: Vomiting of , unspecified) Orders: metoclopramide, 5 mg = 1 tab(s), Oral, q6hr, to use if zofran fails., X 7 day(s), # 20 tab(s), Refills(s) 0, Pharmacy: [id number], 158, cm, 02/22/23 12:17:00 EST, Height/Length Dosing, 87.3, kg, 02/22/23 12:17:00 EST, Weight Dosing ondansetron, 4 mg = 1 tab(s), Oral, q8hr, PRN Nausea/Vomiting, # 12 tab(s), Refills(s) 0, Pharmacy: [id number], 158, cm, 02/22/23 12:17:00 EST, Height/Length Dosing, 87.3, kg, 02/22/23 12:17:00 EST, Weight Dosing ondansetron, 4 mg = 2 mL, Injection, IV Push, Once, Stop date 02/22/23 12:38:00 EST, STAT, Start date 02/22/23 12:38:00 EST, 02/22/23 12:38:00 EST Sodium Chloride 0.9% intravenous solution, 1,000 mL, Soln-IV, IV, Once, Stop date 02/22/23 12:38:00 EST, STAT, Start date 02/22/23 12:38:00 EST, Infuse over 61, minute(s) Diagnostic Tests Pending * Urine Culture 02/22/23 Future Scheduled Tests Laboratory* CBC w/ Auto Diff 07/27/22 * Comprehensive Metabolic Panel 07/27/22 [facility]11-08-2023 Hospital Discharge instructions Follow Up Care 02/22/2023 11:55:55 With:Joce DAVIDSON Address: [facility] [address] [place] [address]- Business (1) When:02/25/2023 14:21:57 With:JUSTIN MAX Address: [facility] [address] [facility] [address]- Business (1) When:02/25/2023 14:21:48 Comments:Follow-up with your primary care provider in 3 to 5 days. If symptoms worsen, do not improve, or new symptoms arise please report back to emergency department for further evaluation. [facility]09-27-2023 Evaluation note* Encounter Date Diagnosis Assessment Notes Treatment Notes Treatment Clinical Notes Dec, Thoracic back pain (ICD-10 - M54.6) [facility] Other 09-15-2023 Evaluation note* Encounter Date Diagnosis Assessment Notes Treatment Notes Treatment Clinical Notes Dec, Migraine without aura and without status migrainosus, not intractable (ICD-10 - G43.009) [facility] Other 08-31-2023 Evaluation note* Encounter Date Diagnosis Assessment Notes Treatment Notes Treatment Clinical Notes Nov, Migraine without aura and without status migrainosus, not intractable (ICD-10 - G43.009) [facility] Other 08-28-2023 Evaluation note* Encounter Date Diagnosis Assessment Notes Treatment Notes Treatment Clinical Notes Nov, Anxiety (ICD-10 - F41.9) Patient certainly to continue to follow-up with her psychiatric care and discuss use of the antidepressants and terms of . I would agree with the use of the Lexapro moving forward, but I defer to OB regarding the Abilify. She will call with any concerns. Nov, 9 weeks gestation of (ICD-10 - Z3A.09) Obviously continue to follow-up with OB. [facility] Other 08-01-2023 Evaluation note* Encounter Date Diagnosis Assessment Notes Treatment Notes Treatment Clinical Notes Nov, Arthritis of lumbosacral spine (ICD-10 - M47.817) We discussed treatment options for the patient's persistent thoracic/lumbar pain. She shows notable muscle tenderness upon exam. She has failed multiple conservative measures and would be a reasonable candidate for lumbar paraspinal trigger point injections, however we would like her to discuss this with her [employer] TECHNICIAN prior to doing so. Patient was instructed to call should her DARKRO[employer] TECHNICIAN be in aggrement with proceeding with trigger point injections. Additionally she will clarify what pain treatment measures including OTC treatments are acceptable to use during her . Anatomy of spine discussed in detail with patient in regard to patients condition. Nov, Muscle pain, lumbar (ICD-10 - M79.18) Nov, Chronic pain (ICD-10 - G89.29) Nov, Other Above note writ ten by Sabrina Cao LPN, Medical Claims Representative. Edited and approved by Dr. William Payne MD. [facility] Other 07-28-2023 Evaluation note* Encounter Date Diagnosis Assessment Notes Treatment Notes Treatment Clinical Notes Oct, Obesity (BMI 30-39.9) (ICD-10 - E66.9) Discussed with patient that we certainly could do further medication, but patient again declines today. I think this is quite reasonable. Call with any concerns or change. [facility] Other 07-26-2023 Hospital Discharge instructions Patient Education 11/09/2022 13:43:14 Peptic Ulcer Peptic Ulcer A peptic ulcer is a sore in the lining of the stomach (gastric ulcer) or the first part of the small intestine (duodenal ulcer). The ulcer causes a gradual wearing away (erosion) of the deeper tissue. What are the causes? Normally, the lining of the stomach and the small intestine protects them from the acid that digests food. The protective lining can be damaged by: An infection caused by a type of bacteria called Helicobacter pylori or H. pylori. Regular use of NSAIDs, such as ibuprofen or aspirin. Rare tumors in the stomach, small intestine, or pancreas (Puma Dutta syndrome). What increases the risk? The following factors may make you more likely to develop this condition: Smoking. Having a family history of ulcer disease. Drinking alcohol. Having been hospitalized in an intensive care unit (ICU). What are the signs or symptoms? Symptoms of this condition include: Persistent burning pain in the area between the chest and the belly button. The pain may be worse on an empty stomach and at night. Heartburn. Nausea and vomiting. Bloating. If the ulcer results in bleeding, it can cause: Black, tarry stools. Vomiting of bright red blood. Vomiting of material that looks like coffee grounds. How is this diagnosed? This condition may be diagnosed based on: Your medical history and a physical exam. Various tests or procedures, such as: ?Upper endoscopy. The health care provider examines the esophagus, stomach, and small intestine using a small flexible tube that has a video camera at the end. ?Blood tests, stool tests, or breath tests to check for the H. pylori bacteria. ?An X-ray exam (upper gastrointestinal series) of the esophagus, stomach, and small intestine. ?A biopsy to help find certain causes of ulcers. A tissue sample is removed during upper endoscopy to be examined under a microscope. How is this treated? Treatment for this condition may include: Eliminating the cause of the ulcer, such as smoking or use of NSAIDs, and limiting alcohol and caffeine intake. Medicines to reduce the amount of acid in your digestive tract. Antibiotic medicines, if the ulcer is caused by an H. pylori infection. An upper endoscopy may be used to treat a bleeding ulcer. Surgery. This may be needed if the bleeding is severe or if the ulcer created a hole somewhere in the digestive system. Follow these instructions at home: Do not drink alcohol if your health care provider tells you not to drink. Do not use any products that contain nicotine or tobacco. These products include cigarettes, chewing tobacco, and vaping devices, such as e-cigarettes. If you need help quitting, ask your health careprovider. Take opqs-kpx-xkwukdp and prescription medicines only as told by your health care provider. ?Do not use qofv-tog-jfspoeq medicines in place of prescription medicines unless your health care provider approves. ?Do not take aspirin, ibuprofen, or other NSAIDs unless your health care provider tells you to. Keep all follow-up visits. This is important. Contact a health care provider if: Your symptoms do not improve within 7 days of starting treatment. You have ongoing indigestion or heartburn. Get help right away if: You have sudden, sharp, or persistent pain in your abdomen. You have bloody or dark black, tarry stools. You vomit blood or material that looks like coffee grounds. You become light-headed or you feel faint. You become weak. You become sweaty or clammy. These symptoms may be an emergency. Get help right away. Call 911. Do not wait to see if the symptoms will go away. Do not drive yourself to the hospital. Summary A peptic ulcer is a sore in the lining of the stomach (gastric ulcer) or the first part of the small intestine (duodenal ulcer). The ulcer causes a gradual wearing away (erosion) of the deeper tissue. Do not use any products that contain nicotine or tobacco. These products include cigarettes, chewing tobacco, and vaping devices, such as e-cigarettes. If you need help quitting, ask your health careprovider. Take tsub-qcb-fbukjmz and prescription medicines only as told by your health care provider. Do not use svod-bik-pdjhsdy medicines in place of prescription medicines unless your health care provider approves. Limit your alcohol and caffeine intake. Keep all follow-up visits. This is important. This information is not intended to replace advice given to you by your health care provider. Make sure you discuss any questions you have with your health care provider. Document Revised: 11/12/2021 Document Reviewed: 11/12/2021 [employer] Patient Education 2022 [employer]. Follow Up Care 10/11/2022 13:11:28 With:Olena Resendez CNP Address: When:1 month [facility] 07-17-2023 Evaluation note* Encounter Date Diagnosis Assessment Notes Treatment Notes Treatment Clinical Notes Oct, Arthritis of lumbosacral spine (ICD-10 - M47.817) [facility] Other 07-07-2023 Evaluation note* Encounter Date Diagnosis Assessment Notes Treatment Notes Treatment Clinical Notes Oct, Arthritis of lumbosacral spine (ICD-10 - M47.817) [facility] Other 06-28-2023 Evaluation note* Encounter Date Diagnosis Assessment Notes Treatment Notes Treatment Clinical Notes Sep, Obesity (BMI 30-39.9) (ICD-10 - E66.9) E Rx sent. We will recheck again in 1 month. Sep, Lumbosacral spondylosis (ICD-10 - M47.817) E Rx sent. Discussed with patient that I am really not inclined to doing anything stronger than tramadol. We may need to contact pain management should she require something more. [facility] Other 06-15-2023 Evaluation note* Encounter Date Diagnosis Assessment Notes Treatment Notes Treatment Clinical Notes Sep, Right shoulder pain (ICD-10 - M25.511) Sep, Cervical pain (ICD-10 - M54.2) [facility] Other 06-14-2023 Note [id number]:[address] [place] [address] 09-26-2022 Hospital Discharge instructions Patient Education 09/26/2022 14:06:02 [facility] NSAIDS-Nonsteroidal Anti-Inflammatory Medications (CUSTOM) Nonsteroidal Anti-Inflammatory Medications (NSAIDS) Non-steroidal anti-inflammatory drugs (NSAIDs) are a medication widely used to treat a wide range of conditions. Common acute (short-term) conditions that can be treated with NSAIDs include: headaches painful periods toothache soft tissue injuries such as sprains and strains reduce inflammation (redness and swelling) infections, such as the common cold or the flu (NSAIDs do not treat the underlying infections, but can help to relieve symptoms; especially fever) Common chronic (long-term) conditions that can be treated with NSAIDs include: most types of arthritis, including rheumatoid arthritis and osteoarthritis back pain neck pain Some NSAIDs are available picr-yhh-mfhuxyg, without the need for a prescription. However, because a medication is available over the counter it does not mean it is safe or suitablefor everyone. Again, it is important to read the patient information leaflet that comes with your medication. NSAID drugs include: Brand: Generic: Bufferin; Kimmy Aspirin; ASA Celebrex Celecoxib Zipsor; Cambia Diclofenac Motrin; Advil Ibuprofen Indosin Indometacin Actron; Orudis Ketoprofen Toradol Ketorolac Mobic Meloxicam Ponstel Mefenamic Acid Aleve; Naprosyn Naproxen Side effects: Most people take NSAIDs without having any side effects. Short term use is unlikely to cause significant problems, especially in younger patients. If side effects do occur they usually affect the stomach and can include: Indigestion Nausea Stomach pain Stomach ulcer Bleeding from the stomach and intestines Other side effects: Ringing in the ears itching Poor control of asthma Headache Allergic reactions NSAIDs are also not usually recommended for people who: are or have a history of kidney disease have a history of liver disease have active stomach ulcers (a sore in the lining of the stomach), or are at risk of developing stomach ulcers How to take NSAIDS: NSAIDS should be taken in the pill form or given by injection. If you are taking the pill form, it is best to take with food to avoid an upset stomach. IF a dose is missed: Some of these medications are taken as needed. Do not take more of your NSAID than your doctor has prescribed. Follow the mojf-mrh-wwrokna labels and do not exceed the recommended dosage. If you take an NSAID daily, take the missed dose of your medication as soon as you remember it. If it is too close to the time for your next dose, skip the missed dose and go back to taking this medication at your normal time. Do not take two doses of this medication at the same time or take any extra doses of this medication. If any questions regarding your medications, contact your physician or pharmacist. 09/26/2022 14:06:02 Colonoscopy, Care After Surgery [place] (CUSTOM) Colonoscopy Care After Surgery Please read the instructions outlined below and refer to this sheet in the next few weeks. These discharge instructions provide you with general information on [facility] Your doctor may also give you specific instructions. While your treatment has been planned according to the most current medical practices available, unavoidable complications occasionally occur. If you have any problems or questions after discharge, please call your doctor. ACTIVITY You may resume your regular activity, but move at a slower pace for the next 24 hours. Take frequent rest periods for the next 24 hours. Walking will help get rid of the air and reduce the bloated feeling in your abdomen (belly). No driving for 24 hours (because of the anesthesia (medicine) used during the test). You may shower. Do not sign any important legal documents or operate any machinery for 24 hours (because of the anesthesia used during the test). NUTRITION Drink plenty of fluids. You may resume your normal diet as instructed by your doctor. Begin with a light meal and progress to your normal diet. Heavy or fried foods are harder to digestand may make you feel nauseated (sick to your stomach). Avoid alcoholic beverages for 24 hours or as instructed. MEDICATIONS You may resume your normal medications unless your doctor tells you otherwise. WHAT YOU CAN EXPECT TODAY Some feelings of bloating in the abdomen. Passage of more gas than usual. Spotting of blood in your stool or on the toilet paper. FOLLOW-UP Your doctor will discuss the results of your test with you. SEEK IMMEDIATE MEDICAL ATTENTION IF: There is more than a spotting of blood in your stool. There is abdominal distention (your abdomen is swollen). There is vomiting. You have a temperature over 101.5 F. There is abdominal pain or discomfort that is severe or gets worse throughout the day. 09/26/2022 14:06:02 Peptic Ulcer Peptic Ulcer A peptic ulcer is a sore in the lining of the stomach (gastric ulcer) or the first part of the small intestine (duodenal ulcer). The ulcer causes a gradual wearing away (erosion) of the deeper tissue. What are the causes? Normally, the lining of the stomach and the small intestine protects them from the acid that digests food. The protective lining can be damaged by: An infection caused by a type of bacteria called Helicobacter pylori or H. pylori. Regular use of NSAIDs, such as ibuprofen or aspirin. Rare tumors in the stomach, small intestine, or pancreas (Puma Dutta syndrome). What increases the risk? The following factors may make you more likely to develop this condition: Smoking. Having a family history of ulcer disease. Drinking alcohol. Having been hospitalized in an intensive care unit (ICU). What are the signs or symptoms? Symptoms of this condition include: Persistent burning pain in the area between the chest and the belly button. The pain may be worse on an empty stomach and at night. Heartburn. Nausea and vomiting. Bloating. If the ulcer results in bleeding, it can cause: Black, tarry stools. Vomiting of bright red blood. Vomiting of material that looks like coffee grounds. How is this diagnosed? This condition may be diagnosed based on: Your medical history and a physical exam. Various tests or procedures, such as: ?Upper endoscopy. The health care provider examines the esophagus, stomach, and small intestine using a small flexible tube that has a video camera at the end. ?Blood tests, stool tests, or breath tests to check for the H. pylori bacteria. ?An X-ray exam (upper gastrointestinal series) of the esophagus, stomach, and small intestine. ?A biopsy to help find certain causes of ulcers. A tissue sample is removed during upper endoscopy to be examined under a microscope. How is this treated? Treatment for this condition may include: Eliminating the cause of the ulcer, such as smoking or use of NSAIDs, and limiting alcohol and caffeine intake. Medicines to reduce the amount of acid in your digestive tract. Antibiotic medicines, if the ulcer is caused by an H. pylori infection. An upper endoscopy may be used to treat a bleeding ulcer. Surgery. This may be needed if the bleeding is severe or if the ulcer created a hole somewhere in the digestive system. Follow these instructions at home: Do not drink alcohol if your health care provider tells you not to drink. Do not use any products that contain nicotine or tobacco. These products include cigarettes, chewing tobacco, and vaping devices, such as e-cigarettes. If you need help quitting, ask your health careprovider. Take epem-wgr-tdcltnh and prescription medicines only as told by your health care provider. ?Do not use gnkw-byq-snhrtrj medicines in place of prescription medicines unless your health care provider approves. ?Do not take aspirin, ibuprofen, or other NSAIDs unless your health care provider tells you to. Keep all follow-up visits. This is important. Contact a health care provider if: Your symptoms do not improve within 7 days of starting treatment. You have ongoing indigestion or heartburn. Get help right away if: You have sudden, sharp, or persistent pain in your abdomen. You have bloody or dark black, tarry stools. You vomit blood or material that looks like coffee grounds. You become light-headed or you feel faint. You become weak. You become sweaty or clammy. These symptoms may be an emergency. Get help right away. Call 911. Do not wait to see if the symptoms will go away. Do not drive yourself to the hospital. Summary A peptic ulcer is a sore in the lining of the stomach (gastric ulcer) or the first part of the small intestine (duodenal ulcer). The ulcer causes a gradual wearing away (erosion) of the deeper tissue. Do not use any products that contain nicotine or tobacco. These products include cigarettes, chewing tobacco, and vaping devices, such as e-cigarettes. If you need help quitting, ask your health careprovider. Take scvl-pxo-sfumcrj and prescription medicines only as told by your health care provider. Do not use bhcd-lsu-emqxrxe medicines in place of prescription medicines unless your health care provider approves. Limit your alcohol and caffeine intake. Keep all follow-up visits. This is important. This information is not intended to replace advice given to you by your health care provider. Make sure you discuss any questions you have with your health care provider. Document Revised: 11/12/2021 Document Reviewed: 11/12/2021 [employer] Patient Education 2022 [employer]. 09/26/2022 14:06:02 Upper Endoscopy, Adult, Care After Upper Endoscopy, Adult, Care After This sheet gives you information about how to care for yourself after your procedure. Your health care provider may also give you more specific instructions. If you have problems or questions, contact your health care provider. What can I expect after the procedure? After the procedure, it is common to have: A sore throat. Mild stomach pain or discomfort. Bloating. Nausea. Follow these instructions at home: Follow instructions from your health care provider about what to eat or drink after your procedure. Return to your normal activities as told by your health care provider. Ask your health care provider what activities are safe for you. Take peha-oit-wqjhmli and prescription medicines only as told by your health care provider. If you were given a sedative during the procedure, it can affect you for several hours. Do not drive or operate machinery until your health care provider says that it is safe. Keep all follow-up visits as told by your health care provider. This is important. Contact a health care provider if you have: A sore throat that lasts longer than one day. Trouble swallowing. Get help right away if: You vomit blood or your vomit looks like coffee grounds. You have: ?A fever. ?Bloody, black, or tarry stools. ?A severe sore throat or you cannot swallow. ?Difficulty breathing. ?Severe pain in your chest or abdomen. Summary After the procedure, it is common to have a sore throat, mild stomach discomfort, bloating, and nausea. If you were given a sedative during the procedure, it can affect you for several hours. Do not drive or operate machinery until your health care provider says that it is safe. Follow instructions from your health care provider about what to eat or drink after your procedure. Return to your normal activities as told by your health care provider. This information is not intended to replace advice given to you by your health care provider. Make sure you discuss any questions you have with your health care provider. Document Revised: 02/07/2020 Document Reviewed: 09/03/2018 [employer] Patient Education 2022 [employer]. Follow Up Care 07/27/2022 10:18:04 With:Roma HAWKINS Address: [facility] [address] [place] [address] Business (1) When: Unknown Comments:Dr Hawkins's office will call you to schedule follow up appointment [facility]06-12-2023 Evaluation + Plan noteExtracted from: Title:ANES Pre-operative Note - Endo Author:Sam Sandoval Jr., DO Date:09/26/22 Plan [employer] [employer] (ASA) physical status classification: Class II. Anesthetic Preoperative Plan: Anesthesia General, and -TIVA. Future Scheduled Tests Laboratory* CBC w/ Auto Diff 07/27/22 * Comprehensive Metabolic Panel 07/27/22 [facility]05-31-2023 Evaluation note* Encounter Date Diagnosis Assessment Notes Treatment Notes Treatment Clinical Notes August, Migraine without aura and without status migrainosus, not intractable (ICD-10 - G43.009) Patient would like to pursue the Ubrelvy again, as she has tried multiple other medications, including 2 triptans, without success. We will proceed with prior authorization August, Attention and concentration deficit (ICD-10 - R41.840) August, BMI 30.0-30.9,adult (ICD-10 - Z68.30) DD [facility] -eRx sent. We will proceed with the third month and see patient back in 4 weeks for recheck. [facility] Other 05-31-2023 Evaluation note* Encounter Date Diagnosis Assessment Notes Treatment Notes Treatment Clinical Notes August, Migraine without aura and without status migrainosus, not intractable (ICD-10 - G43.009) Patient would like to pursue the Ubrelvy again, as she has tried multiple other medications, including 2 triptans, without success. We will proceed with prior authorization August, Attention and concentration deficit (ICD-10 - R41.840) August, BMI 30.0-30.9,adult (ICD-10 - Z68.30) [facility] [place] -eRx sent. We will proceed with the third month and see patient back in 4 weeks for recheck. August, Obesity (BMI 30-39.9) (ICD-10 - E66.9) [facility] Other 05-10-2023 Evaluation note* Encounter Date Diagnosis Assessment Notes Treatment Notes Treatment Clinical Notes August, Degenerative disc disease, lumbar (ICD-10 - M51.36) [facility] Other 05-09-2023 Evaluation note* Encounter Date Diagnosis Assessment Notes Treatment Notes Treatment Clinical Notes August, Degenerative disc disease, lumbar (ICD-10 - M51.36) [facility] Other 05-03-2023 Evaluation note* Encounter Date Diagnosis Assessment Notes Treatment Notes Treatment Clinical Notes August, BMI 29.0-29.9,adult (ICD-10 - Z68.29) [facility] [place] E Rx sent. We will recheck again in 1 month. August, Degenerative disc disease, lumbar (ICD-10 - M51.36) [facility] [place] -discussed with patient that certainly we will hold the Mobic as it made things worse. We will try 1 final anti-inflammatory . I am interested to see what pain management suggests. [facility] Other 05-02-2023 Evaluation note* Encounter Date Diagnosis Assessment Notes Treatment Notes Treatment Clinical Notes August, Degenerative disc disease, lumbar (ICD-10 - M51.36) [facility] Other 04-26-2023 Evaluation note* Encounter Date Diagnosis Assessment Notes Treatment Notes Treatment Clinical Notes Jul, Degenerative disc disease, lumbar (ICD-10 - M51.36) [facility] Other 04-21-2023 Hospital Discharge instructions Patient Education 08/05/2022 08:35:01 Obesity, Adult Obesity, Adult Obesity is the condition of having too much total body fat. Being overweight or obese means that your weight is greater than what is considered healthy for your body size. Obesity is determined by a measurement called BMI (body mass index). BMI is an estimate of body fat and is calculated from height and weight. For adults, a BMI of 30 or higher is considered obese. Obesity can lead to other health concerns and major illnesses, including: Stroke. Coronary artery disease (CAD). Type 2 diabetes. Some types of cancer, including cancers of the colon, breast, uterus, and gallbladder. High blood pressure (hypertension). High cholesterol. Gallbladder stones. Obesity can also contribute to: Osteoarthritis. Sleep apnea. Infertility problems. What are the causes? Common causes of this condition include: Eating daily meals that are high in calories, sugar, and fat. Drinking high amounts of sugar-sweetened beverages, such as soft drinks. Being born with genes that may make you more likely to become obese. Having a medical condition that causes obesity, including: ?Hypothyroidism. ?Polycystic ovarian syndrome (PCOS). ?Binge-eating disorder. ?Leon syndrome. Taking certain medicines, such as steroids, antidepressants, and seizure medicines. Not being physically active (sedentary lifestyle). Not getting enough sleep. What increases the risk? The following factors may make you more likely to develop this condition: Having a family history of obesity. Living in an area with limited access to: ?[place], recreation centers, or sidewalks. ?Healthy food choices, such as grocery stores and farmers' markets. What are the signs or symptoms? The main sign of this condition is having too much body fat. How is this diagnosed? This condition is diagnosed based on: Your BMI. If you are an adult with a BMI of 30 or higher, you are considered obese. Your waist circumference. This measures the distance around your waistline. Your skinfold thickness. Your health care provider may gently pinch a fold of your skin and measureit. You may have other tests to check for underlying conditions. How is this treated? Treatment for this condition often includes changing your lifestyle. Treatment may include some or all of the following: Dietary changes. This may include developing a healthy meal plan. Regular physical activity. This may include activity that causes your heart to beat faster (aerobicexercise) and strength training. Work with your health care provider to design an exercise program that works for you. Medicine to help you lose weight if you are unable to lose one pound a week after six weeks of healthy eating and more physical activity. Treating conditions that cause the obesity (underlying conditions). Surgery. Surgical options may include gastric banding and gastric bypass. Surgery may be done if: ?Other treatments have not helped to improve your condition. ?You have a BMI of 40 or higher. ?You have life-threatening health problems related to obesity. Follow these instructions at home: Eating and drinking Follow recommendations from your health care provider about what you eat and drink. Your health care provider may advise you to: ?Limit fast food, sweets, and processed snack foods. ?Choose low-fat options, such as low-fat milk instead of whole milk. ?Eat five or more servings of fruits or vegetables every day. ?Choose healthy foods when you eat out. ?Keep low-fat snacks available. ?Limit sugary drinks, such as soda, fruit juice, sweetened iced tea, and flavored milk. Drink enough water to keep your urine pale yellow. Do not follow a fad diet. Fad diets can be unhealthy and even dangerous. Other healthful choices include: ?Eat at home more often. This gives you more control over what you eat. ?Learn to read food labels. This will help you understand how much food is considered one serving. ?Learn what a healthy serving size is. Physical activity Exercise regularly, as told by your health care provider. ?Most adults should get up to 150 minutes of moderate-intensity exercise every week. ?Ask your health care provider what types of exercise are safe for you and how often you should exercise. Warm up and stretch before being active. Cool down and stretch after being active. Rest between periods of activity. Lifestyle Work with your health care provider and a dietitian to set a weight-loss goal that is healthy and reasonable for you. Limit your screen time. Find ways to reward yourself that do not involve food. Do not drink alcohol if: ?Your health care provider tells you not to drink. ?You are , may be , or are planning to become . If you drink alcohol: ?Limit how much you have to: ?0 1 drink a day for women. ?0 2 drinks a day for men. ?Know how much alcohol is in your drink. In the [place] one drink equals one 12 oz bottle of beer (355 mL), one 5 oz glass of wine (148 mL), or one 1 oz glass of hard liquor (44 mL). General instructions Keep a weight-loss journal to keep track of the food you eat and how much exercise you get. Take rqsv-yeh-marjjmq and prescription medicines only as told by your health care provider. Take vitamins and supplements only as told by your health care provider. Consider joining a support group. Your health care provider may be able to recommend a support group. Pay attention to your mental health as obesity can lead to depression or self esteem issues. Keep all follow-up visits. This is important. Contact a health care provider if: You are unable to meet your weight-loss goal after six weeks of dietary and lifestyle changes. You have trouble breathing. Summary Obesity is the condition of having too much total body fat. Being overweight or obese means that your weight is greater than what is considered healthy for your body size. Work with your health care provider and a dietitian to set a weight-loss goal that is healthy and reasonable for you. Exercise regularly, as told by your health care provider. Ask your health care provider what types of exercise are safe for you and how often you should exercise. This information is not intended to replace advice given to you by your health care provider. Make sure you discuss any questions you have with your health care provider. Document Revised: 11/09/2021 Document Reviewed: 11/09/2021 [employer] Patient Education 2022 [employer]. [facility] [place] 04-12-2023 Hospital Discharge instructions Patient Education 07/27/2022 09:08:04 Gastrointestinal Bleeding Gastrointestinal Bleeding Gastrointestinal (GI) bleeding is bleeding somewhere along the digestive tract, between the mouth and the anus. This tract includes the mouth, esophagus, stomach, small intestine, large intestine, and anus. The large intestine is often called the colon. GI bleeding can be caused by various problems. The severity of these problems can range from mild to serious or even life-threatening. If you have GI bleeding, you may find blood in your stools (feces), you may have black stools, or you may vomit blood. If there is a lot of bleeding, you may need to stay in the hospital. What are the causes? This condition may be caused by: Inflammation, irritation, or swelling of the esophagus (esophagitis). The esophagus is part of the body that moves food from your mouth to your stomach. Swollen veins in the rectum (hemorrhoids). Areas of painful tearing in the anus that are often caused by passing hard stool (anal fissures). Pouches that form on the colon over time, with age, and may bleed a lot (diverticulosis). Inflammation (diverticulitis) in areas with diverticulosis. This can cause pain, fever, and bloody stools, although bleeding may be mild. Growths (polyps) or cancer. Colon cancer often starts out as precancerous polyps. Gastritis and ulcers. With these, bleeding may come from the upper GI tract, near the stomach. What increases the risk? You are more likely to develop this condition if you: Have an infection in your stomach from a type of bacteria called Helicobacter pylori. Take certain medicines, such as: ?NSAIDs. ?Aspirin. ?Selective serotonin reuptake inhibitors (SSRIs). ?Steroids. ?Antiplatelet or anticoagulant medicines. Smoke. Drink alcohol. What are the signs or symptoms? Common symptoms of this condition include: Bright red blood in your vomit, or vomit that looks like coffee grounds. Bloody, black, or tarry stools. ?Bleeding from the lower GI tract will usually cause red or maroon blood in the stools. ?Bleeding from the upper GI tract may cause black, tarry stools that are often stronger smelling than usual. ?In certain cases, if the bleeding is fast enough, the stools may be red. Pain or cramping in the abdomen. How is this diagnosed? This condition may be diagnosed based on: Your medical history and a physical exam. Various tests, such as: ?Blood tests. ?Stool tests. ?X-rays and other imaging tests. ?Esophagogastroduodenoscopy (EGD). In this test, a flexible, lighted tube is used to look at your esophagus, stomach, and small intestine. ?Colonoscopy. In this test, a flexible, lighted tube is used to look at your colon. How is this treated? Treatment for this condition depends on the cause of the bleeding. For example: For bleeding from the esophagus, stomach, small intestine, or colon, the health care provider doingyour EGD or colonoscopy may be able to stop the bleeding as part of the procedure. Inflammation or infection of the colon can be treated with medicines. Certain rectal problems can be treated with creams, suppositories, or warm baths. Medicines may be given to reduce acid in your stomach. Surgery is sometimes needed. Blood transfusions are sometimes needed if a lot of blood has been lost. If bleeding is mild, you may be allowed to go home. If there is a lot of bleeding, you will need tostay in the hospital for observation. Follow these instructions at home: Take rmwc-skk-wzblsww and prescription medicines only as told by your health care provider. Eat foods that are high in fiber, such as beans, whole grains, and fresh fruits and vegetables. This will help to keep your stools soft. Eating 1 3 prunes each day works well for many people. Drink enough fluid to keep your urine pale yellow. Keep all follow-up visits as told by your health care provider. This is important. Contact a health care provider if: Your symptoms do not improve. Get help right away if: Your bleeding does not stop. You feel light-headed or you faint. You feel weak. You have severe cramps in your back or abdomen. You pass large blood clots in your stool. Your symptoms are getting worse. You have chest pain or fast heartbeats. Summary Gastrointestinal (GI) bleeding is bleeding somewhere along the digestive tract, between the mouth and anus. GI bleeding can be caused by various problems. The severity of these problems can range from mild to serious or even life-threatening. Treatment for this condition depends on the cause of the bleeding. Take cajp-gqj-ziqlzjp and prescription medicines only as told by your health care provider. Keep all follow-up visits as told by your health care provider. This is important. Get help right away if your bleeding increases, your symptoms are getting worse, or you have new symptoms. This information is not intended to replace advice given to you by your health care provider. Make sure you discuss any questions you have with your health care provider. Document Released: 03/31/2001 Document Revised: 11/14/2018 Document Reviewed: 11/14/2018 [employer] Patient Education 2019 [employer]. Follow Up Care 07/11/2022 11:35:32 With:Olena Resendez CNP Address: When:1 to 2 weeks Comments:Following EGD/Colonoscopy. [facility] 04-04-2023 Evaluation note* Encounter Date Diagnosis Assessment Notes Treatment Notes Treatment Clinical Notes Jul, BMI 30.0-30.9,adult (ICD-10 - Z68.30) D[facility] [place] -E Rx sent. No other change today. Patient made aware of potential side effects and we will recheck again in 1 month. Jul, Degenerative disc disease, lumbar (ICD-10 - M51.36) E Rx sent. We will go ahead and pursue an MRI, based on the fact that her symptoms are worsening and persisting post PT. We may need to have patient see pain management depending on results. Jul, Anxiety (ICD-10 - F41.9) Certain to continue to follow-up with psychiatry. [facility] Other 03-22-2023 Evaluation note* Encounter Date Diagnosis Assessment Notes Treatment Notes Treatment Clinical Notes Jun, Degenerative disc disease, lumbar (ICD-10 - M51.36) [facility] Other 03-13-2023 Evaluation note* Encounter Date Diagnosis Assessment Notes Treatment Notes Treatment Clinical Notes Jun, Low back pain, unspecified back pain laterality, unspecified chronicity, unspecified whether sciatica present (ICD-10 - M54.50) [facility] Other 03-10-2023 Evaluation note* Encounter Date Diagnosis Assessment Notes Treatment Notes Treatment Clinical Notes Jun, Degenerative disc disease, lumbar (ICD-10 - M51.36) [facility] Other 02-28-2023 Evaluation note* Encounter Date Diagnosis Assessment Notes Treatment Notes Treatment Clinical Notes May, Degenerative disc disease, lumbar (ICD-10 - M51.36) [facility] Other 02-27-2023 Evaluation note* Encounter Date Diagnosis Assessment Notes Treatment Notes Treatment Clinical Notes May, Migraine without aura and without status migrainosus, not intractable (ICD-10 - G43.009) [facility] Other 02-20-2023 Evaluation note* Encounter Date Diagnosis Assessment Notes Treatment Notes Treatment Clinical Notes May, Seasonal allergies (ICD-10 - J30.2) Certainly patient is able to use the antihistamine along with the Singulair. May, Migraine without aura and without status migrainosus, not intractable (ICD-10 - G43.009) 2 samples given. Patient to call with results. If this is beneficial, we will make sure we send full prescription. May, Degenerative disc disease, lumbar (ICD-10 - M51.36) Continue with current medication. May, Attention and concentration deficit (ICD-10 - R41.840) Pt to see [id number] - she is to make appt online... [facility] Other 02-07-2023 Evaluation note* Encounter Date Diagnosis Assessment Notes Treatment Notes Treatment Clinical Notes May, Degenerative disc disease, lumbar (ICD-10 - M51.36) May, Seasonal allergies (ICD-10 - J30.2) [facility] Other 01-30-2023 Evaluation note* Encounter Date Diagnosis Assessment Notes Treatment Notes Treatment Clinical Notes Apr, Anxiety (ICD-10 - F41.9) [facility] Other 01-23-2023 Evaluation note* Encounter Date Diagnosis Assessment Notes Treatment Notes Treatment Clinical Notes Apr, Degenerative disc disease, lumbar (ICD-10 - M51.36) [facility] Other 01-07-2023 Evaluation note* Encounter Date Diagnosis Assessment Notes Treatment Notes Treatment Clinical Notes Apr, Migraine without aura and without status migrainosus, not intractable (ICD-10 - G43.009) [facility] Other 01-05-2023 Evaluation note* Encounter Date Diagnosis Assessment Notes Treatment Notes Treatment Clinical Notes Apr, Degenerative disc disease, lumbar (ICD-10 - M51.36) [facility] [place] -E Rx sent. Leg he discussion with patient today that we need to pursue new imaging as well as physical therapy. I think she would benefit from having an MRI, but we will need to pursue conservative therapy first. She voices agreement and understanding. [facility] Other 01-05-2023 Evaluation note* Encounter Date Diagnosis Assessment Notes Treatment Notes Treatment Clinical Notes Apr, Degenerative disc disease, lumbar (ICD-10 - M51.36) [facility] Other 12-18-2022 Evaluation note* Encounter Date Diagnosis Assessment Notes Treatment Notes Treatment Clinical Notes Mar, Degenerative disc disease, lumbar (ICD-10 - M51.36) [facility] Other 12-07-2022 Hospital Discharge instructions Patient Education 03/23/2022 15:45:11 Lower Gastrointestinal Bleeding Lower Gastrointestinal Bleeding Lower gastrointestinal (GI) bleeding is the result of bleeding from the colon, rectum, or anal area. The colon is the last part of the digestive tract, where stool, also called feces, is formed. If you have lower GI bleeding, you may see blood in or on your stool. It may be bright red. Lower GI bleeding often stops without treatment. Continued or heavy bleeding needs emergency treatment at the hospital. What are the causes? Lower GI bleeding may be caused by: A condition that causes pouches to form in the colon over time (diverticulosis). Swelling and irritation (inflammation) in areas with diverticulosis (diverticulitis). Inflammation of the colon (inflammatory bowel disease). Swollen veins in the rectum (hemorrhoids). Painful tears in the anus (anal fissures), often caused by passing hard stools. Cancer of the colon or rectum. Noncancerous growths (polyps) of the colon or rectum. A bleeding disorder that impairs the formation of blood clots and causes easy bleeding (coagulopathy). An abnormal weakening of a blood vessel where an artery and a vein come together (arteriovenous malformation). What increases the risk? You are more likely to develop this condition if: You are older than 60 years of age. You take aspirin or NSAIDs on a regular basis. You take anticoagulant or antiplatelet drugs. You have a history of high-dose X-ray treatment (radiation therapy) of the colon. You recently had a colon polyp removed. What are the signs or symptoms? Symptoms of this condition include: Bright red blood or blood clots coming from your rectum. Bloody stools. Black or maroon-colored stools. Pain or cramping in the abdomen. Weakness or dizziness. Racing heartbeat. How is this diagnosed? This condition may be diagnosed based on: Your symptoms and medical history. A physical exam. During the exam, your health care provider will check for signs of blood loss, such as low blood pressure and a rapid pulse. Tests, such as: ?Flexible sigmoidoscopy. In this procedure, a flexible tube with a camera on the end is used to examine your anus and the first part of your colon to look for the source of bleeding. ?Colonoscopy. This is similar to a flexible sigmoidoscopy, but the camera can extend all the way tothe uppermost part of your colon. ?Blood tests to measure your red blood cell count and to check for coagulopathy. ?An imaging study of your colon to look for a bleeding site. In some cases, you may have X-rays taken after a dye or radioactive substance is injected into your bloodstream (angiogram). How is this treated? Treatment for this condition depends on the cause of the bleeding. Heavy or persistent bleeding is treated at the hospital. Treatment may include: Getting fluids through an IV tube inserted into one of your veins. Getting blood through an IV tube (blood transfusion). Stopping bleeding through high-heat coagulation, injections of certain medicines, or applying surgical clips. This can all be done during a colonoscopy. Having a procedure that involves first doing an angiogram and then blocking blood flow to the bleeding site (embolization). Stopping some of your regular medicines for a certain amount of time. Having surgery to remove part of the colon. This may be needed if bleeding is severe and does not respond to other treatment. Follow these instructions at home: Take mnzy-xfb-pwemsoj and prescription medicines only as told by your health care provider. You mayneed to avoid aspirin, NSAIDs, or other medicines that increase bleeding. Eat foods that are high in fiber. This will help keep your stools soft. These foods include whole grains, legumes, fruits, and vegetables. Eating 1 3 prunes each day works well for many people. Drink enough fluid to keep your urine clear or pale yellow. Keep all follow-up visits as told by your health care provider. This is important. Contact a health care provider if: Your symptoms do not improve. Get help right away if: Your bleeding increases. You feel light-headed or you faint. You feel weak. You have severe cramps in your back or abdomen. You pass large blood clots in your stool. Your symptoms get worse. This information is not intended to replace advice given to you by your health care provider. Make sure you discuss any questions you have with your health care provider. Document Released: 08/18/2016 Document Revised: 07/26/2019 Document Reviewed: 08/18/2016 [employer] Patient Education 2020 [employer]. 03/23/2022 15:45:11 Bloody Diarrhea Bloody Diarrhea Bloody diarrhea is frequent loose and watery bowel movements that contain blood. The blood can be hard to see or notice (occult). Bloody diarrhea may be caused by medical conditions such as: Ulcerative colitis. Crohn's disease. Intestinal infection. Viral gastroenteritis or bacterial gastroenteritis. Finding out why there is blood in your diarrhea is necessary so that your health care provider can prescribe the right treatment for you. Follow the instructions from your health care provider about treating the cause of your bloody diarrhea. Any type of diarrhea can make you feel weak and dehydrated. Dehydration can make you tired and thirsty, cause you to have a dry mouth, and decrease how often you urinate. Follow these instructions at home: Eating and drinking Follow these recommendations as told by your health care provider: Take an oral rehydration solution (ORS). This is an vuzn-pii-mxixpsz medicine that helps return your body to its normal balance of nutrients and water. It is found at pharmacies and retail stores. Drink enough fluid to keep your urine pale yellow. ?Drink fluids such as water, ice chips, diluted fruit juice, and low-calorie sports drinks. You canalso drink milk products, if desired. ?Avoid drinking fluids that contain a lot of sugar or caffeine, such as energy drinks, regular sports drinks, and soda. ?Avoid alcohol. Eat bland, yrmt-zr-tlnbra foods in small amounts as you are able. These foods include bananas, applesauce, rice, lean meats, toast, and crackers. Avoid spicy or fatty foods. Medicines Take zuzm-wsh-smjdxpv and prescription medicines only as told by your health care provider. ?Your health care provider may prescribe medicine to slow down the frequency of diarrhea or to easestomach discomfort. If you were prescribed an antibiotic medicine, take it as told by your health care provider. Do notstop using the antibiotic even if you start to feel better. General instructions Wash your hands often using soap and water. If soap and water are not available, use a hand shear grinder operator. Others in the household should wash their hands as well. Hands should be washed: ?After using the toilet or changing a diaper. ?Before preparing, cooking, or serving food. ?While caring for a sick person or while visiting someone in a hospital. Rest at home while you recover. Take a warm bath to relieve any burning or pain from frequent diarrhea episodes. Watch your condition for any changes. Keep all follow-up visits as told by your health care provider. This is important. Contact a health care provider if: You have a fever. Your diarrhea gets worse. You have new symptoms. You cannot keep fluids down. You feel light-headed or dizzy. You have a headache. You have muscle cramps. Get help right away if: You have chest pain. You feel extremely weak or you faint. The blood in your diarrhea increases or turns a different color. You vomit and the vomit is bloody or looks black. You have persistent diarrhea. You have severe pain, cramping, or bloating in your abdomen. You have trouble breathing or you are breathing very quickly. Your heart is beating very quickly. Your skin feels cold and clammy. You feel confused. You have signs of dehydration, such as: ?Dark urine, very little urine, or no urine. ?Cracked lips. ?Dry mouth. ?Sunken eyes. ?Sleepiness. ?Weakness. Summary Bloody diarrhea is frequent loose and watery bowel movements that contain blood. The blood can be hard to see or notice (occult). Follow the instructions from your health care provider about treating the cause of your bloody diarrhea. Any type of diarrhea can make you feel weak and dehydrated. Follow your health care provider's recommendations for eating and drinking and for taking medicines. Contact your health care provider if your symptoms get worse. Get help right away if you have signsof dehydration. This information is not intended to replace advice given to you by your health care provider. Make sure you discuss any questions you have with your health care provider. Document Released: 04/03/2006 Document Revised: 09/13/2018 Document Reviewed: 09/13/2018 [employer] Patient Education [employer] 03/23/2022 15:45:11 Rectal Bleeding, Xjes-dp-Zjis Rectal Bleeding Rectal bleeding is when blood comes out of the opening of the butt (anus). People with this kind ofbleeding may notice bright red blood in their underwear or in the toilet after they poop (have a bowel movement). They may also have dark red or black poop (stool). Rectal bleeding is often a sign that something is wrong. It needs to be checked by a doctor. Follow these instructions at home: Watch for any changes in your condition. Take these actions to help with bleeding and discomfort: Eat a diet that is high in fiber. This will keep your poop soft so it is easier for you to poop without pushing too hard. Ask your doctor to tell you what foods and drinks are high in fiber. Drink enough fluid to keep your pee (urine) clear or pale yellow. This also helps keep your poop soft. Try taking a warm bath. This may help with pain. Keep all follow-up visits as told by your doctor. This is important. Get help right away if: You have new bleeding. You have more bleeding than before. You have black or dark red poop. You throw up (vomit) blood or something that looks like coffee grounds. You have pain or tenderness in your belly (abdomen). You have a fever. You feel weak. You feel sick to your stomach (nauseous). You pass out (faint). You have very bad pain in your butt. You cannot poop. This information is not intended to replace advice given to you by your health care provider. Make sure you discuss any questions you have with your health care provider. Document Released: 12/14/2011 Document Revised: 03/16/2018 Document Reviewed: 05/29/2016 [employer] Patient Education [employer] Follow Up Care 03/23/2022 13:43:37 With:Roma HAWKINS Address: [address] [place], [place] [address]bhavani. [address] [place] [address] Business (1) When:03/26/2022 15:23:44 Comments:Follow-up with Dr. Hawkins for further evaluation of your blood in your stool. With:JUSTIN MAX Address: [facility] MIMI SILVA [address] [address] Business (1) When:03/26/2022 15:23:32 Comments:Follow-up with your primary care provider in 3 to 5 days. If symptoms worsen, do not improve, or new symptoms arise please report back to emergency department for further evaluation. [facility]12-07-2022 Evaluation + Plan noteExtracted from: Title:ED Note Author:Alphonso MAURICE, Dmitry Sharma te:03/23/22 Blood in stool (K92.1: Torie de la cruz) Orders: ondansetron, 4 mg = 1 tab(s), Oral, q8hr, PRN Nausea/Vomiting, # 12 tab(s), Refills(s) 0, Pharmacy: [id number], 157, cm, 03/23/22 13:50:00 EST, Height/Length Dosing, 80.1, kg, 03/23/22 13:50:00 EST, Weight Dosing ondansetron, 4 mg = 2 mL, Injection, IV Push, Once, Stop date 03/23/22 13:59:00 EST, STAT, Start date 03/23/22 13:59:00 EST, 03/23/22 13:59:00 EST Sodium Chloride 0.9% intravenous solution, 1,000 mL, Soln-IV, IV, Once, Stop date 03/23/22 13:59:00 EST, STAT, Start date 03/23/22 13:59:00 EST, mL/hr, Infuse over 61, minute(s) Sodium Chloride 0.9% intravenous solution, Soln-IV, Misc, Once, Stop date 03/23/22 14:08:26 EST, Physician Stop, 03/23/22 14:08:26 EST Automated Diff Basic Metabolic Panel Beta hCG Qual CBC w/ Auto Diff eGFR Extra Blue Tube Hepatic Function Panel Lipase Level UA With Cult Reflex Future Scheduled Tests Laboratory* Sedimentation Rate Automated 08/12/21 * CBC w/ Auto Diff 08/12/21 * Comprehensive Metabolic Panel 08/12/21 * C-Reactive Protein 08/12/21 [facility]11-21-2022 Evaluation note* Encounter Date Diagnosis Assessment Notes Treatment Notes Treatment Clinical Notes Feb, Degenerative disc disease, lumbar (ICD-10 - M51.36) [facility] Other 10-27-2022 Evaluation note* Encounter Date Diagnosis Assessment Notes Treatment Notes Treatment Clinical Notes Jan, Degenerative disc disease, lumbar (ICD-10 - M51.36) Jan, Anxiety (ICD-10 - F41.9) Jan, Seasonal allergies (ICD-10 - J30.2) [facility] Other 10-10-2022 Evaluation note* Encounter Date Diagnosis Assessment Notes Treatment Notes Treatment Clinical Notes Jan, Flu vaccine need (ICD-10 - Z23) [facility] Other 10-04-2022 Evaluation note* Encounter Date Diagnosis Assessment Notes Treatment Notes Treatment Clinical Notes Jan, Degenerative disc disease, lumbar (ICD-10 - M51.36) [facility] Other 09-22-2022 Evaluation note* Encounter Date Diagnosis Assessment Notes Treatment Notes Treatment Clinical Notes Dec, Viral upper respiratory tract infection (ICD-10 - J06.9) Discussed with patient that everything was normal but her symptoms certainly are significant. Therefore we will treat and patient will call with update. Dec, Degenerative disc disease, lumbar (ICD-10 - M51.36) [facility] Other 08-30-2022 Evaluation note* Encounter Date Diagnosis Assessment Notes Treatment Notes Treatment Clinical Notes Nov, Degenerative disc disease, lumbar (ICD-10 - M51.36) [facility] Other 08-18-2022 Evaluation note* Encounter Date Diagnosis Assessment Notes Treatment Notes Treatment Clinical Notes Nov, BMI 34.0-34.9,adult (ICD-10 - Z68.34) eRX sent. OARRS completed. Pt to call with any concerns. [facility] Other 08-08-2022 Evaluation note* Encounter Date Diagnosis Assessment Notes Treatment Notes Treatment Clinical Notes Nov, Seasonal allergies (ICD-10 - J30.2) [facility] Other 08-03-2022 Evaluation note* Encounter Date Diagnosis Assessment Notes Treatment Notes Treatment Clinical Notes Nov, Degenerative disc disease, lumbar (ICD-10 - M51.36) [facility] Other 08-02-2022 Evaluation note* Encounter Date Diagnosis Assessment Notes Treatment Notes Treatment Clinical Notes Nov, Anxiety (ICD-10 - F41.9) [facility] Other 07-22-2022 Evaluation note* Encounter Date Diagnosis Assessment Notes Treatment Notes Treatment Clinical Notes Oct, BMI 35.0-35.9,adult (ICD-10 - Z68.35) E Rx sent. No other change today. We will recheck again in 1 month. Oct, Seasonal allergies (ICD-10 - J30.2) Pt to add OTC antihistamine - also do nasal steroid spray every day - 2 puffs.... [facility] Other 07-08-2022 Evaluation note* Encounter Date Diagnosis Assessment Notes Treatment Notes Treatment Clinical Notes Oct, Degenerative disc disease, lumbar (ICD-10 - M51.36) [facility] Other 06-21-2022 Evaluation note* Encounter Date Diagnosis Assessment Notes Treatment Notes Treatment Clinical Notes Sep, BMI 36.0-36.9,adult (ICD-10 - Z68.36) E Rx sent. OARRs completed. We will see patient back in 1 month. We discussed side effects and outcomes. [facility] Other 06-13-2022 Evaluation note* Encounter Date Diagnosis Assessment Notes Treatment Notes Treatment Clinical Notes Sep, Degenerative disc disease, lumbar (ICD-10 - M51.36) [facility] Other 05-18-2022 Evaluation note* Encounter Date Diagnosis Assessment Notes Treatment Notes Treatment Clinical Notes August, Degenerative disc disease, lumbar (ICD-10 - M51.36) [facility] Other 05-09-2022 Evaluation note* Encounter Date Diagnosis Assessment Notes Treatment Notes Treatment Clinical Notes August, Poison danilo (ICD-10 - L23.7) [facility] Other 05-04-2022 Evaluation note* Encounter Date Diagnosis Assessment Notes Treatment Notes Treatment Clinical Notes August, Anxiety (ICD-10 - F41.9) August, Seasonal allergies (ICD-10 - J30.2) [facility] Other 04-28-2022 Evaluation + Plan note Future Scheduled Tests Laboratory* Sedimentation Rate Automated 08/12/21 * CBC w/ Auto Diff 08/12/21 * Comprehensive Metabolic Panel 08/12/21 * C-Reactive Protein 08/12/21 [facility]04-21-2022 Evaluation note* Encounter Date Diagnosis Assessment Notes Treatment Notes Treatment Clinical Notes Jul, Degenerative disc disease, lumbar (ICD-10 - M51.36) [facility] Other 03-07-2022 Evaluation note* Encounter Date Diagnosis Assessment Notes Treatment Notes Treatment Clinical Notes Jun, Bloody stool (ICD-10 - K92.1) [facility] Other 02-22-2022 Evaluation note* Encounter Date Diagnosis Assessment Notes Treatment Notes Treatment Clinical Notes May, Anxiety (ICD-10 - F41.9) Simply continue current medication as it is well-tolerated and really helping with her symptoms. May, Bloody stool (ICD-10 - K92.1) Lengthy discussion with patient today that with this being a one-time solitary issue, and no symptoms since, I doubt we need to make any aggressive work-up. I would like patient to do a Hemoccult card at home and bring it back for us to develop. If there does still appear to be some blood in her stool, then we may need to refer to gastroenterology for scoping. She voices agreement and understanding. [facility] Other 11-12-2021 Evaluation note* Encounter Date Diagnosis Assessment Notes Treatment Notes Treatment Clinical Notes Feb, Degenerative disc disease, lumbar (ICD-10 - M51.36) [facility] Other 11-12-2021 Evaluation note* Encounter Date Diagnosis Assessment Notes Treatment Notes Treatment Clinical Notes Feb, Need for influenza vaccination (ICD-10 - Z23) [facility] Other 02-01-2021 History general Narrative - Reported* Type Description Date Medical History degenerative disc disease Medical History anxiety Medical History May 2020 [facility] Other 02-01-2021 History general Narrative - Reported* Type Description Date Medical History degenerative disc disease Medical History anxiety Medical History COV - May 2020 Medical History 5 weeks gestation [facility] Other Evaluation + Plan note Future Appointments Appointment Date:08/24/2021 11:15:00 AM Scheduled Provider: Location:[facility] Appointment Type:Surgery PAT COVID Testing Future Scheduled Tests Laboratory* Sedimentation Rate Automated 08/12/21 * CBC w/ Auto Diff 08/12/21 * Comprehensive Metabolic Panel 08/12/21 * C-Reactive Protein 08/12/21 [facility] Evaluation + Plan note Future Appointments Appointment Date:07/29/2022 01:00:00 PM Scheduled Provider: [facility] Type:US Abdominal/Pelvis (FT) Appointment Date:07/29/2022 06:00:00 PM Scheduled Provider: [facility] Type:MRI Spine (FT) Appointment Date:09/26/2022 02:05:00 PM Scheduled Provider: Location:[facility] Appointment Type:Surgery FT Future Scheduled Tests Laboratory* Sedimentation Rate Automated 08/12/21 * CBC w/ Auto Diff 08/12/21 * CBC w/ Auto Diff 07/27/22 * Comprehensive Metabolic Panel 08/12/21 * Comprehensive Metabolic Panel 07/27/22 * C-Reactive Protein 08/12/21 Radiology* US Gallbladder 07/29/22 * MRI Spine Lumbar w/o Contrast 07/29/22 [facility] Evaluation + Plan note Future Appointments Appointment Date:09/26/2022 02:05:00 PM Scheduled Provider: Location:[facility] Appointment Type:Surgery FT Future Scheduled Tests Laboratory* Sedimentation Rate Automated 08/12/21 * CBC w/ Auto Diff 08/12/21 * CBC w/ Auto Diff 07/27/22 * Comprehensive Metabolic Panel 08/12/21 * Comprehensive Metabolic Panel 07/27/22 * C[facility]Reactive [facility]ments Appointment Date:11/18/2022 08:30:00 AM Scheduled Provider: Location:[facility] Appointment Type:Surgery FT Future Scheduled Tests Laboratory* CBC w/ Auto Diff 07/27/22 * Comprehensive Metabolic Panel 07/27/22 [facility] Evaluation noteNo InformationNort [employer] Other Evaluation noteNo assessment information available [facility] Work Phone: Evaluation noteNoToroleo [employer] Other Evaluation noteNort [employer] Other History general Narrative - [facility] Other History general Narrative - ReportedNosaint [facility] system [employer] Other Hospital course Narrative No data available for this section [facility] Hospital Discharge instructions No data available for this section [facility] Progress note No data available for this section [facility] Advance Directives Advance Directive Response Recorded Date/ Time Advance Directives No June 27, 019 8:37am Summary Purpose Family History No Family History Records Found Additional Source Comments REASON FOR VISIT (unrecogniz ed section and content) RefillsFlu Vaccine6 month Fo llow upstool cardsNew Refill RequestClinical Acute Illnessrefill singulair, lexaproNew Refill RequestNew Refill Requestdiscuss adipexNew Refill Request1 month Follow uprefill lexaprorefill Tylenol 5Nbcyskh5 month Follow up1 month Follow upNew Refill RequestClinical Acute Illnessflu/covid swab, Body aches, cough, congestion started Monday. 2 negative home covidsClinical Acute IllnessMedication ReactionNew Refill Requestflu shotNew Refill Requestrefill tylenol #3[facility] follow upNew Refill RequestLow back pain, every movement hurts x 5 days- no injury notedNew Refill RequestNew Refill RequestNew Refill Requestrefill lexaproNew Refill Request6 month Follow up, Pt says she doesn't really think she likes the rizatriptan- really upsets her stomach and would like to try something else.. (rizatriptan is all she's ever tried prn for migraines) ubrelvy she's wondering aboutrefill ubrelvyNew Refill Requestubrelvy PAUbrelvy concernsNew Refill RequestBack Xray clarificationXray resultsNew Refill Request/XR resultsDiscuss XR's- potential MRI order, she did go to [place] [id number] and is awaiting testing for the adhd testing prior auth- and she doubled lexapro d/t depression, wants to discuss starting adipexaddendum request 4/4refill relpax/Ubrelvy PA/ samplesNew Refill RequestNew Refill Request1 month Follow upNew Refill RequestNew Refill RequestTylenol #3 failed4 week follow up- says she hasn't received callback from Dr Elmer Day mgmt yet, Patient says that she is really hoping we can try to pursue the ubrelvy PA again- says that the nurtec only helps if she is able to take it right away( has tried the nurtec for about 2 months) she has also had 30 day trial the rizatriptan and gets stomach upset. Also had 30 day trial of relpax- not effective at all in treating her migraines. Ubrelvy is the only medication she has tried that has treated her migraines effectively., pt says that [place] [id number] and she ordered ADHD testing.. BUT it's $850 and she cannot afford that- any suggestions where she can go and for the ADHD testing and also counseling for the anxiety/ depression... [facility] Behavioral healthubrelvjared MARTINEZ APPROVALADHD testing/Referral ReqNew Refill RequestClinical Acute IllnessNo InformationNew Refill RequestPain Medicine Office Notes1 month Follow up, says the Scope did show Ulcers, did go to Dr Pyane's office- she says he suggested the PT- and muscle relaxants- she is waiting for the callback on that-she was told as far as the pain meds go, to stay with whatever DR Max suggests..4 week follow up- says she hasn't received callback from Dr Payne Pain mgmt yet, Patient says that she is really hoping we can try to pursue the ubrelvy PA again- says that the nurtec only helps if she is able to take it right away( has tried the nurtec for about 2 months) she has also had 30 day trial the rizatriptan and gets stomach upset. Also had 30 day trial of relpax- not effective at all in treating her migraines. Ubrelvy is the only medication she has tried that has treated her migraines effectively., pt says that she was seeing [phone] and she ordered ADHD testing.. BUT it's $850 and she cannot afford that- any suggestions where she can go and for the ADHD testing and also counseling for the anxiety/ depression... [facility] [place] [place] Behavioral healthClinical Acute IllnessNew Refill Requestcall rec'd FYI/ pain mgmt apptubrelvyPostitive Test FYI1 month Follow up, rec'd PA for ubrelvy from [facility]- i called [facility] - they say that it doesnt need PA, just too soon to fill- (can't fill until 12/01/22)- need to tell patient- pt was made aware. she will call the pharm6 WEEKSmedications with pregnancyNew Refill Request6 month Follow up, first [facility] appt was monday12/09/22 (saw SAMPLE EXAMINER for Ariel)-- she is about 9 weeks- next appt is in 4 weeks 01/09/2023, pt says one of her questions for OB was if she can restart the abilify - she definitely feels like this was great controlling the depression- and now that she's not on it she notices a difference, also has a question out to OB about pressure point injections (Dr T Felter) to see if this is ok with themNew Refill RequestNew Refill Requestubrelvy concernsNew Refill Requestrefill zofranNew Refill Request Care Team (unrecognized sect ion and content) Team Status: Active Member Role Status Dates Justin Max , DO Primary Care Provider Active Team Status: Inactive Member Role Status Dates Justin Max , DO Primary Care Provider Active William Payne MD Attending Provider Active Goals (unrecognized section and content) Goals may be documented in a n alternate section INFORMATION SOURCE (unrecogn ized section and content) DATE CREATED AUTHOR 02/26/2023 [facility] DATE CREATED AUTHOR AUTHOR'S ORGANIZ ATION 02/27/2023 [facility] DATE CREATED AUTHOR AUTHOR'S ORGANIZ ATION 03/04/2023 [facility] Special[facility] FOR RECORDS PERTAINING TO PATIENTS WHO ARE OR HAVE BEEN ENROLLED IN A CHEMICAL DEPENDENCY/SUBSTANCEABUSE PROGRAM, SOME INFORMATION MAY BE OMITTED. This clinical summary was aggregated from multiple sources. Caution should be exercised in using it in the provision of clinical care. This summary normalizes information from multiple sources, and as a consequence, information in this document may materially change the coding, format and clinical context of patient data. In addition, data may be omitted in some cases. CLINICAL DECISIONS SHOULD BE BASED ON THE PRIMARY CLINICAL RECORDS. [employer] provides no warranty or guarantee of the accuracy or completeness of information in this document.
[2023-04-22 11:53] LABS: Basophils Percent Auto 0.4 % (0.2-2.0); Eosinophils Absolute Auto 0.2 10^3/uL (0.0-0.7); Eosinophils Percent Auto 1.5 % (0.9-7.0); Hematocrit 31.7 % (36.0-48.0); Hemoglobin 10.2 g/dL (12.0-16.0); Immature Granulocytes Abs Auto 0.08 10^3/uL (0.00-0.03); Immature Granulocytes Pct Auto 0.8 % (0.0-0.5); Lymphocytes Absolute Auto 1.2 10^3/uL (1.2-3.8); Lymphocytes Percent Auto 11.6 % (20.5-60.0); Mean Corpuscular HGB Conc 32.2 g/dL (29.9-35.2); Mean Corpuscular Hemoglobin 32.4 pg (26.7-34.0); Mean Corpuscular Volume 100.6 fL (81.0-99.0); Mean Platelet Volume 9.9 fL (9.5-13.5); Monocytes Absolute Auto 0.7 10^3/uL (0.3-0.8); Monocytes Percent Auto 6.2 % (1.7-12.0); Neutrophils Absolute Auto 8.4 10^3/uL (1.4-6.5); Neutrophils Percent Auto 79.5 % (43.0-75.0); Platelet Count 396 10^3/uL (150-450); Red Blood Count 3.15 10^6/uL (4.20-5.40); Red Cell Distribution Width 12.5 % (11.0-15.0); White Blood Count 10.6 10^3/uL (4.0-11.0)
[2023-04-22 12:17] LABS: Glucose 1 Hour 191 mg/dL
== END 2023-04-22 10:36 | disposition home or self-care (01) ==
LOC: LAB 10:39
PROVIDERS: PCP Family Medicine; Visit Provider Obstetrics & Gynecology
DX: Z34.92 Encounter for supervision of normal pregnancy, unspecified, second trimester (principal)
CPT/HCPCS: 36415; 82950; 85025

== ENCOUNTER 2023-04-29 08:02 | Outpatient (OUT) | payer OTHER, SELFPAY ==
--- OUTSIDE RECORDS SUMMARY | 2023-04-29 08:04 | XMS_ITS | CCD ---
Author Name Unknown Address [address] [place] [address] Organization [facility] Care Team Providers Care Invoice Clerk Name Role Phone CHARLY MAXH Bernard Primary Care Physician Mansoor, Justin Unavailable Johana Duran Unavailable William Payne Unavailable Mansoor, DO Justin M. Primary Care Provider MD William Payne Attending Provider [phone] MANSOOR, JUSTIN M Admitting Unavailable MANSOOR, JUSTIN M Attending Unavailable MANSOOR, JUSTIN M Admitting Unavailable MANSOOR, JUSTIN M Attending Unavailable MANSOOR, JUSTIN M Referring Unavailable Mal, Olena A Admitting Unavailable Mal, Olena A Attending Unavailable Mal, Olena A Referring Unavailable Hajdari, Astrit H Attending Unavailable Hajdari, Astrit H Attending Unavailable SALAM, Brandon Admitting Unavailable SALAM, Brandon Attending Unavailable SALAM, Brandon Referring Unavailable Mal, Olena A Attending Unavailable Mal, Olena A Attending Unavailable Román Dominguez Attending Unavailable Mal, Olena A Referring Unavailable Román Dominguez Attending Unavailable Mal, Olena A Referring Unavailable William Payne Admitting Unavailable William Payne Attending Unavailable Mansoor, Justin M. Primary Care Unavailable William Payne Admitting Unavailable William Payne Attending Unavailable Mansoor, Justin M. Primary Care Unavailable Mansoor, Justin M. Admitting Unavailable Mansoor, Justin M. Attending Unavailable Mansoor, Justin M. Primary Care Unavailable William Payne Admitting Unavailable William Payne Attending Unavailable Justin Max Primary Care Unavailable EVELYN CABRERA Attending Unavailable JOCE DAVIDSON Attending Unavailable JOCE DAVIDSON Attending Unavailable Allergies Allergy Classification Reported Allergen(s) Allergy Type Date of Onset Reaction(s) Facility (20 sources) Azithromycin; Translations: [azithromycin] Drug Allergy Eruption (morphologic abnormality), Itching (finding) [facility] (20 sources) rizatriptan Drug Allergy nausea [facility] Other (20 sources) meloxicam Drug Allergy worse joint symptoms, nauseous [facility] Other (20 sources) Acetaminophen / Codeine Drug Allergy rash/facial swelling [facility] Other (4 sources) Codeine; Translations: [codeine] Drug Allergy Eruption of skin (disorder) [facility] (20 sources) Diclofenac Drug Allergy nausea [facility] Other (1 source) Azithromycin; Translations: [Zithromax Z-Sixto] Drug Allergy [facility] Repository Medications Current Medications Medication Drug [...] Active Start: 01-06-2022 take 1 tablet by shebly th every six hours Acetaminophen-Codeine #3 300-30 [...] Active Start: 12-15-2020 take 1 tablet by hselby th every six hours Acetaminophen-Codeine #3 300-30 [...] Active Start: 07-05-2017 take 1 tablet by [facility] once daily Lexapro 10 mg Tab 10 mg = 1 tab(s), Oral, Daily, Refills(s) 0, Anxiety Start Date: 02/04/20 Status: Ordered Nexium (20 sources) Proton Pump Inhibitor Start: 08-12-2021 Nexium O ral, Daily, Refills(s) 0, Control of stomach acid Start Date: 08/12/21 Status: Ordered Start: 08-12-2021 Nexium Oral, D aily, Refills(s) 0 Start Date: 08/12/21 Status: Ordered Start: 10-16-2020 take 1 capsule by [facility] every twenty-four hours Esomeprazole Magnesium 20 [...] follow instructions per packaging and physician's handout, [facility], 157, cm, 07/27/22 9:34:00 EDT, [...] day(s), # 20 tab(s), Refills(s) 0, Pharmacy: [facility], 158, cm, 02/22/23 12:17:00 EST, Height/Length [...] Daily, # 90 cap(s), Refills(s) 3, Pharmacy: [facility], 158, cm, 11/09/22 13:50:00 EDT, Height/Length [...] to colonoscopy as instructed by Dr. Hawkins., [facility], 157, cm, 08/12/21 12:58:00 EDT, [...] Nausea/Vomiting, # 12 tab(s), Refills(s) 0, Pharmacy: [facility], 158, cm, 02/22/23 12:17:00 EST, Height/Length Dosing, 87.3, kg, 02/22/23 12:17:00 EST, Weight Dosing Start Date: 02/22/23 Status: Ordered Start: 03-23-2022 take 1 tablet by shelby every eight hours as needed for nausea Zofran ODT 4 mg Tab-Dis 4 mg = 1 tab(s), Oral, q8hr, PRN Nausea/Vomiting, # 12 tab(s), Refills(s) 0, Pharmacy: [facility], 157, cm, 03/23/22 13:50:00 EST, Height/Length [...] Locations R1: This test was performed at: [facility], [address] [place] [address], [phone]- , , Normal [facility] Comment on above: Performed By: #### 2 [id number], [id number] #### [facility] [address] [place] [address] Auto Diffon 02-22-2023 Basophils/100 WBC (Bld) 0.5 % Normal 0.0-2.0 [facility] Comment on above: Order Comment: Order Added by Discern Expert. Performed By: #### 2 259225, 3682876, 1737533, 41093617, 0460377, 4968660 #### [facility] [address] [place] [address] Basophils/Leukocyt es Auto (Bld) [Pure # fraction] 0.0 E9/L Normal 0.0-0.2 [facility] Comment on above: Order Comment: Order Added by Discern Expert. Performed By: #### 2 307831, 0884308, 4066162, 02721052, 8493822, 2941648 #### [facility] [address] [place] [address] Eosinophils/100 WBC (Bld) 1.8 % Normal 0.0-8.0 [facility] Comment on above: Order Comment: Order Added by Discern Expert. Performed By: #### 2 400832, 2109334, 5956240, 00597347, 5566669, 2448017 #### [facility] [address] [place] [address] Eosinophils/Leukoc ytes Auto (Bld) [Pure # fraction] 0.2 E9/L Normal 0.0-0.5 [facility] Comment on above: Order Comment: Order Added by Discern Expert. Performed By: #### 2 572906, 4014458, 1999117, 33850051, 7988086, 3744073 #### [facility] [address] [place] [address] Lymphocytes/100 WBC (Bld) 19.0 % Normal 14.0-50.0 [facility] Comment on above: Order Comment: Order Added by Discern Expert. Performed By: #### 2 587958, 4312329, 5681661, 82183083, 4790318, 9117194 #### [facility] [address] [place] [address] Lymphocytes/Leukoc ytes Auto (Bld) [Pure # fraction] 1.6 E9/L Normal 1.0-4.0 [facility] Comment on above: Order Comment: Order Added by Discern Expert. Performed By: #### 2 502992, 7150574, 8108418, 37066318, 0990992, 5088108 #### [facility] [address] [place] [address] Monocytes/100 WBC (Bld) 7.4 % Normal 4.0-14.0 [facility] Comment on above: Order Comment: Order Added by Discern Expert. Performed By: #### 2 767681, 1386406, 4944861, 16310798, 7447586, 3310407 #### [facility] [address] [place] [address] Monocytes/Leukocyt es Auto (Bld) [Pure # fraction] 0.6 E9/L Normal 0.2-1.0 [facility] Comment on above: Order Comment: Order Added by Discern Expert. Performed By: #### 2 693106, 1838198, 6006716, 45864768, 6745701, 5160147 #### [facility] [address] [place] [address] Neutrophils/100 WBC (Bld) 71.3 % Normal 36.0-75.0 [facility] Comment on above: Order Comment: Order Added by Discern Expert. Performed By: #### 2 062124, 4036814, 4165914, 49178273, 2019785, 5417288 #### [facility] [address] [place] [address] Neutrophils/Leukoc ytes Auto (Bld) [Pure # fraction] 6.0 E9/L Normal 2.0-7.5 [facility] Comment on above: Order Comment: Order Added by Discern Expert. Performed By: #### 2 439118, 9499219, 2835206, 73201535, 6949523, 4240369 #### [facility] [address] [place] [address] BMPon 02-22-2023 Creatinine [Mass/Vol] 0.5 mg/dL Normal 0.5-1.3 [facility] Comment on above: Performed By: #### 2 169498, 8491135, 1019988, 30547644, 5250566, 6201026 ####[facility] [address] [place] [address] Urea nitrogen [Mass/Vol] 6 mg/dL Normal 5-21 [facility] Comment on above: Performed By: #### 2 306817, 0204734, 8755458, 84217513, 1787870, 4415823 ####[facility] [address] [place] [address] Urea nitrogen/Creatinin e [Mass ratio] 12 No Units Normal 10-20 [facility] Comment on above: Performed By: #### 2 747313, 0203523, 7070383, 25161111, 6659444, 5783703 ####[facility] [address] [place] [address] Anion gap [Moles/Vol] 9 mmol/L Normal 6-16 [facility] Comment on above: Performed By: #### 2 240815, 8802854, 8926712, 61591567, 9572010, 6742975 ####[facility] [address] [place] [address] Calcium [Mass/Vol] 8.8 mg/dL Low 8.9-11.1 [facility] Comment on above: Performed By: #### 2 010278, 7144710, 4263956, 81911856, 2514956, 0925172 ####[facility] [address] [place] [address] Chloride [Moles/Vol] 108 mmol/L Normal 101-111 [facility] Comment on above: Performed By: #### 2 598849, 1698428, 9838162, 37229657, 4763843, 0099319 ####[facility] [address] [place] [address] CO2 [Moles/Vol] 23 mmol/L Normal 21-[address] [facility] Comment on above: Performed By: #### 2 329405, 1402533, 1549848, 57207925, 2918822, 0239291 ####[facility] [address] [place] [address] Glucose [Mass/Vol] 93 mg/dL Normal 55-199 [facility] Comment on above: Result Comment: If t his glucose result represents a fasting glucose, interpretation should refer to the following reference range: 55-99 mg/dL Performed By: #### 2 448518, 4648067, 8785514, 09703432, 6207750, 3799724 ####[facility] [address] [place] [address] Potassium [Moles/Vol] 3.4 mmol/L Low 3.5-5.3 [facility] Comment on above: Performed By: #### 2 778995, 3407908, 4014412, 90457374, 2079488, 0168476 ####[facility] [address] [place] [address] Sodium [Moles/Vol] 137 mmol/L Normal 135-145 [facility] Comment on above: Performed By: #### 2 814713, 8598938, 8337157, 83071791, 1280550, 2398118 ####[facility] [address] [place] [address] CBC w/ Auto Diffon Erythrocyte distribution width (RBC) [Ratio] 12.6 % Normal 10.9-14.2 [facility] Comment on above: Performed By: #### 2 129299, 5068167, 9242614, 51046233, 1819616, 4826217 #### [facility] [address] [place] [address] Hematocrit (Bld) [Volume fraction] 35.9 % Normal 34.0-46.0 [facility] Comment on above: Performed By: #### 2 627304, 1636111, 1391458, 91813713, 2756793, 9787428 #### [facility] [address] [place] [address] Hemoglobin (Bld) [Mass/Vol] 12.0 g/dL Normal 12.0-16.0 [facility] Comment on above: Performed By: #### 2 215500, 2737402, 6133758, 92328344, 9655277, 8694128 #### [facility] [address] [place] [address] MCH (RBC) [Entitic mass] 32.7 pg Normal 27.0-34.0 [facility] Comment on above: Performed By: #### 2 220953, 9074525, 9532251, 99856311, 7557119, 0943078 #### [facility] [address] [place] [address] MCHC (RBC) [Mass/Vol] 33.4 g/dL Normal 31.4-36.0 [facility] Comment on above: Performed By: #### 2 040928, 0436505, 4015245, 83163074, 3902581, 2516609 #### [facility] [address] [place] [address] MCV (RBC) [Entitic vol] 97.8 fL Normal 80.0-100.0 [facility] Comment on above: Performed By: #### 2 113727, 4507425, 5555123, 00200978, 3505257, 7147948 #### [facility] [address] [place] [address] Platelet mean volume (Bld) [Entitic vol] 7.9 fL Normal 6.4-10.8 [facility] Comment on above: Performed By: #### 2 777620, 4992681, 7614320, 48112132, 6568944, 9862541 #### [facility] [address] [place], [place] [address] Platelets (Bld) [#/Vol] 323.0 E9/L Normal 150.0-500.0 [facility] Comment on above: Performed By: #### 2 041218, 0642219, 5428691, 40137285, 0889995, 4968122 #### [facility] [address] [place], [place] [address] RBC (Bld) [#/Vol] 3.7 E12/L Low 4.3-5.9 [facility] Comment on above: Performed By: #### 2 055855, 3390270, 4909317, 25899145, 9721201, 6519498 #### [facility] [address] [place], [place] [address] WBC corrected for nucl RBC Auto (Bld) [#/Vol] 8.4 E9/L Normal 4.0-11.0 [facility] Comment on above: Performed By: #### 2 995672, 4880884, 4956132, 24637526, 6592550, 4399915 #### [facility] [address] [place] [address] CHEMISTRYOrdered By: SYSTEM SYSTEM on 02-22-2023 Albumin [...] mg/dL Low 8.9 - 11. 1 mg/dL [facility] Chloride [Moles/Vol] 108 mmol/L Normal 101 - 111 mmol/L [facility] CO2 [Moles/Vol] 23 mmol/L Normal 21 - 31 mmol/L [facility] Creatinine [Mass/Vol] 0.5 mg/dL Normal 0.5 - 1.3 mg/dL [facility] GFR/1.73 sq M.predicted among non-blacks MDRD (S/P/Bld) [Vol rate/Area] 130 mL/min/1.73 m2 Normal >=59mL/min/1.7 3 m2 [facility] Comment on above: Interpretive Data: C hronic kidney disease could be indicated at eGFR's of less than 60 mL/min/1.73m2. Kidney failure is indicated at less than 15 mL/min/1.73m2. Globulin (S) [Mass/Vol] 3.2 g/dL Normal 1.4 - 4.0 gm/dL [facility] Glucose [Mass/Vol] 93 mg/dL Normal 55 - 199 mg/dL [facility] Comment on above: Interpretive Data: I f this glucose result represents a fasting glucose, interpretation should refer to the following reference range: 55-99 mg/dL Lipase [Catalytic activity/Vol] 25 U/L Normal 13 - 58 unit/L [facility] Potassium [Moles/Vol] 3.4 mmol/L Low 3.5 - 5.3 mmol/L [facility] Protein [Mass/Vol] 6.6 g/dL Normal 6.0 - 7.8 gm/dL [facility] Sodium [Moles/Vol] 137 mmol/L Normal 135 - 145 mmol/L [facility] Urea nitrogen [Mass/Vol] 6 mg/dL Normal 5 - 21 mg/dL [facility] Urea nitrogen/Creatinin e [Mass ratio] 12 mg/mg Normal 10 - 20 [facility] Consent for Treatmenton Consent for Treatment [id number] Normal [facility] Discharge Instructionson Discharge Instructions [id number] Normal [facility] ED Clinical Summaryon 2022 ED Clinical Summary [place] [id number] ED Clinical Summary Person Information Name: BERENICE SANTOS [facility] Age: 27 Years : 1995 Sex: Female Language: Iranian PCP: JUSTIN MAX DO Marital Status: Visit [...] 02/22/2023 14:31:11 02/22/2023 14:31:11 02/22/2023 14:31:11 ADDRESS: [address] [place] [address] [address] [place] [id number] PHYS DOC NOTES: MEDICAL INFORMATION: Prescriptions Given: New Medications [facility], [address] [place], [place] [id number], [phone] metoclopramide (Reglan 5 mg Tab) 1 Tablets By Mouth every 6 hours for 7 Days. to use if zofran fails.. Refills: 0. Medications to Continue Taking That Have Changed [facility], [address] [place], [place] [id number], [phone] START: ondansetron (Zofran ODT 4 mg Tab-Dis) [...] Follow up: With: Address: When: [facility], [address] [place] [address] , [place] [address] Business (1) In 3 days 02/25/2023 With: Address: When: JUSTIN MAX [address] [place] [address] [address] Business (1) In 3 days 02/25/2023 Comments: Follow-up with your primary care provider in 3 to 5 days. If symptoms worsen, do not improve, or new symptoms arise please report back to emergency department for further evaluation. 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 Is appointment next week. Reports that she [...] and Complexity of Problems Differential Diagnosis: [] [facility] Data External documents reviewed: [] My EKG [...] in the emergency department. Discussed follow-up with GLOBAL TRANSPORTATION MANAGER. Discussed return precautions. Follow-up with your primary [...] day(s), # 20 tab(s), Refills(s) 0, Pharmacy: [facility], 158, cm, 02/22/23 12:17:00 EST, Height/Length Dosing, 87.3, kg, 02/22/23 12:17:00 EST, Weight Dosing ondansetron, 4 mg = 1 tab(s), Oral, q8hr, PRN Nausea/Vomiting, # 12 tab(s), Refills(s) 0, Pharmacy: [facility], 158, cm, 02/22/23 12:17:00 EST, Height/Length [...] Information Joce DAVIDSON In 3 days 02/25/[address] [place] [address]- Business (1) Additional Instructions: JUSTIN MAX In 3 days 02/25/2023 EST [address] [place] [address]- Business (1) Additional Instructions: Follow-up with your primary care provider in 3 to 5 days. If symptoms worsen, do not improve, (more content not included)... Normal [facility] Comment on above: Result Comment: Elec tronically Signed By: Dmitry Werner PA-C\.br\Date and Time Signed: 02/22/23 14:50 EST\.br\Electronically Co-Signed By: Rodney Johnson M.D.\.br\Date and Time Co-Signed: 02/22/23 16:24 EST ED Patient Education Noteon 02-22-2023 ED Patient Education Note Normal [facility] ED Patient Summaryon 023 ED Patient Summary (Inserted Image. Laureen ble to display) [address] [address] Patient Discharge Instructions Person Information Name: BERENICE SANTOS Age: 27 Years Arrival Date: 02/22/2023 11:54:35 Discharge Diagnosis: Vomiting during Primary Care Physician: JUSTIN MAX DO Provider Information Primary Provider: Rodney Johnson M.D. Advanced Drinking Water Technician:None The exam and treatment you received in the Emergency Department were for an urgent problem and are not intended as complete care. It is important that you follow up with a doctor, nurse practitioner, or physician?s programs assistant for ongoing care. If your symptoms become worse or you do not improve as expected and you are unable to reach your usual health care provider, you should return to the Emergency Department. We are available 24 hours a day. BERENICE SANTOS has been given the following list of patient education materials, prescriptions and follow-up instructions: Follow-up Instructions: With: Address: When: [facility], [address] [place] [address] [place] [address] Business (1) In 3 days 02/25/2023 With: Address: When: JUSTIN MAX [address], [facility] [address] [place] [address] [employer] (1) In 3 days 02/25/2023 Comments: Follow-up [...] opioids can be used to help relieve ounwhjth-lx-uocxek pain and are often prescribed following a [...] Drug A (more content not included)... Normal [facility] HEMATOLOGYOrdered By: SYSTEM SYSTEM on 02-22-2023 [...] 71.3 % Normal 36.0 - 75.0 % [facility] Neutrophils/Leukoc ytes Auto (Bld) [Pure # fraction] 6.0 E9/L Normal 2.0 - 7.5 E9/L [facility] HEMATOLOGYOrdered By: Rachel hannah on 02-22-2023 Erythrocyte distribution width (RBC) [Ratio] 12.6 % Normal 10.9 - 14.2 % [facility] Hematocrit (Bld) [Volume fraction] 35.9 % Normal 34.0 - 46.0 % [facility] Hemoglobin (Bld) [Mass/Vol] 12.0 g/dL Normal 12.0 - 16.0 gm/dL [facility] MCH (RBC) [Entitic mass] 32.7 pg Normal 27.0 - 34.0 pg [facility] MCHC (RBC) [Mass/Vol] 33.4 g/dL Normal 31.4 - 36.0 gm/dL [facility] MCV (RBC) [Entitic vol] 97.8 fL Normal 80.0 - 100.0 fL [facility] Platelet mean volume (Bld) [Entitic vol] 7.9 fL Normal 6.4 - 10.8 fL [facility] Platelets (Bld) [#/Vol] 323.0 E9/L Normal 150.0 - 500.0 E9/L [facility] RBC (Bld) [#/Vol] 3.7 E12/L Low 4.3 - 5.9 E12/L [facility] WBC corrected for nucl RBC Auto (Bld) [#/Vol] 8.4 E9/L Normal 4.0 - 11.0 E9/L [facility] Hep Func Panelon 02-22-2023 Bilirubin.indirect [Mass or moles/Vol] UTC Abnormal 0.1-0.9 [facility] Comment on above: Result Comment: Resu lt verified by Discern Rule. Performed result UTC (Unable to Calculate) was sent as an Alpha code due the inability to calculate a valid numeric value. Performed By: #### 2 553144, 2468621, 9830245, 21656385, 9036095, 7114061 ####[address] [address] Albumin [Mass/Vol] 3.4 g/dL Normal 3.3-5.0 [facility] Comment on above: Performed By: #### 2 953821, 1099820, 9190885, 76245230, 5504797, 3946186 ####[address] [address] Albumin/Globulin (S) [Mass conc ratio] 1.1 Normal 1.1-2.2 [facility] Comment on above: Performed By: #### 2 273773, 7029071, 7777232, 02137765, 2793116, 6128038 ####[address] [address] ALP [Catalytic activity/Vol] 35 Int._Unit/L Normal 21-98 [facility] Comment on above: Performed By: #### 2 078461, 0127325, 2796426, 80401610, 3012938, 4152511 ####[address] [address] ALT No additional P-5'-P [Catalytic activity/Vol] 13 Int._Unit/L Normal 6-46 [facility] Comment on above: Performed By: #### 2 570351, 3481813, 4445813, 03244680, 5560705, 3750018 ####[address] [address] AST [Catalytic activity/Vol] 13 Int._Unit/L Normal 5-43 [facility] Comment on above: Performed By: #### 2 283519, 1714747, 3627224, 13838292, 6381264, 5604238 ####[place] [address] [place] [address] Bilirubin [Mass/Vol] 0.2 mg/dL Normal 0.0-1.1 [facility] Comment on above: Performed By: #### 2 858448, 1541703, 7720826, 95281186, 0228816, 1659918 ####[facility] [address] [place] [address] Globulin (S) [Mass/Vol] 3.2 g/dL Normal 1.4-4.0 [facility] Comment on above: Performed By: #### 2 455317, 3564216, 7513585, 02809848, 1638184, 9159294 ####[facility] [address] [place] [address] Protein [Mass/Vol] 6.6 g/dL Normal 6.0-7.8 [facility] Comment on above: Performed By: #### 2 532591, 9431661, 5677107, 07597715, 2139769, 8129648 ####[facility] [address] [place] [address] Bilirubin.direct [Mass/Vol] mg/dL Normal 0.1-0.4 [facility] Comment on above: Performed By: #### 2 049405, 1448469, 7578336, 95164376, 3139489, 2441587 ####[facility] [address] [place] [address] Lipase Levelon 02-22-2023 Lipase [Catalytic activity/Vol] 25 U/L Normal 13-58 [facility] Comment on above: Performed By: #### 2 232446, 6445427, 1742508, 18585623, 9119639, 5347175 ####[facility] [address] [place] [address] UA With Cult Reflexon 2022 Bacteria LM Ql (Urine sed) TRACE Normal Trace [facility] Comment on above: Performed By: #### 2 615745, 43011919 #### [facility] [address] [place] [address] Bilirubin Ql (U) Negative Normal Negative [facility] Comment on above: Performed By: #### 2 900595, 13390694 #### [facility] [address] [place] [address] Clarity (U) CLEAR Normal Clear [facility] Comment on above: Performed By: #### 2 771579, 47258194 #### [facility] [address] [place] [address] Color (U) YELLOW Normal Yellow [facility] Comment on above: Performed By: #### 2 [id number], [id number] #### [facility] [address] [place] [address] Crystals LM Ql (Urine sed) Present Normal [facility] Comment on above: Performed By: #### 2 [id number], [id number] #### [facility] [address] [place] [address] Epithelial cells.squamous LM.HPF (Urine sed) [#/Area] 5-8 Normal 0-2 [facility] Comment on above: Performed By: #### 2 129346, [id number] #### [facility] [address] [place] [address] Glucose Test strip (U) [Mass/Vol] Negative Normal Negative [facility] Comment on above: Performed By: #### 2 197720, [id number] #### [facility] [address] [place] [address] Hemoglobin Ql (U) Negative Normal Negative [facility] Comment on above: Performed By: #### 2 499530, [id number] #### [facility] [address] [place] [address] Ketones (U) [Mass/Vol] 3+ Abnormal Negative [facility] Comment on above: Performed By: #### 2 193895, [id number] #### [facility] [address] [place] [address] Veneta.plasma/Lit hium.RBC (Bld) [Mass ratio] 0-3 Normal 0-3 [facility] Comment on above: Performed By: #### 2 719781, [id number] #### [facility] [address] [place] [address] Mucus Ql (Urine sed) TRACE Normal [facility] Comment on above: Performed By: #### 2 962861, [id number] #### [facility] [address] [place] [address] Nitrite Ql (U) Negative Normal Negative [facility] Comment on above: Performed By: #### 2 703715, [id number] #### [facility] [address] [place] [address] pH (U) 7.0 [pH] Invalid Interpretation Code 5.0-9.0 [facility] Comment on above: Performed By: #### 2 [id number], [id number] #### [facility] [address] [place] [address] Protein (U) [Mass/Vol] Negative Normal Negative [facility] Comment on above: Performed By: #### 2 770627, [id number] #### [facility] [address] [place], [place] [address] Specific gravity (U) [Rel density] 1.015 Invalid Interpretation Code 1.005-1.030 [facility] Comment on above: Performed By: #### 2 933492, [id number] #### [facility] [address] [place] [address] Type of Urine collection method Clean Catch Normal [facility] Comment on above: Performed By: #### 2 589073, [id number] #### [facility] [address] [place] [address] Urobilinogen Qn (U) 0.2 {Chiara'U}/dL Normal 0.0-1.0 [facility] Comment on above: Performed By: #### 2 968391, [id number] #### [facility] [address] [place] [address] WBC Auto Ql (U) 1+ Abnormal Negative [facility] Comment on above: Performed By: #### 2 419298, [id number] #### [facility] [address] [place] [address] WBC LM.HPF (Urine sed) [#/Area] 0-5 Normal 0-5 [facility] Comment on above: Performed By: #### 2 576625, [id number] #### [facility] [address] [place] [address] URINALYSISOrdered By: Hilda Yeh on 02-22-2023 Bacteria [...] Interpretation Code Negative [facility] UA Auto SS Veneta.plasma/Lit hium.RBC (Bld) [Mass ratio] 0-3 /HPF Normal [...] Desc Clean Catch (02/22/23 12:21 PM) Normal [facility] UA Auto SS Urobilinogen Qn (U) 0.9043270 {Chiara'U}/dL Normal 0.0 - 1.0 EU/dL [facility]A Auto SS WBC Auto Ql (U) 1+ *ABN* (02/22/23 12:21 PM) Invalid Interpretation Code Negative [facility] Auto SS WBC LM.HPF (Urine sed) [#/Area] 0-5 /HPF Normal 0-5/HPF [facility] Auto SS eGFRon 02-22-2023 GFR/1.73 sq M.predicted among non-blacks MDRD (S/P/Bld) [Vol rate/Area] 130 mL/min/1.73 m2 Normal >=59 [facility] Comment on above: Order Comment: Order added by Discern Expert. Result Comment: International Project Manager juan pablo kidney disease could be indicated at eGFR's of less than 60 mL/min/1.73m2. Kidney failure is indicated at less than 15 mL/min/1.73m2. Performed By: #### 2 531251, 4734333, 6596532, [id number], [id number], [id number] ####[facility] [address] [place] [address] Reminderson 11-16-2022 Reminders - From: Olena Resendez CNP To: Shayy Dubon; Sent: 11/09/2022 13:40:58 EDT Show up: 11/09/2022 13:41:00 EDT Subject: Ambulatory Reminder Reminder/Recall Colonoscopy [place] [address] Hawkins. 10/17/[address] hawkins From: Shayy Dubon To: [facility] - Reminders/Recalls; Sent: 11/16/2022 14:37:40 EDT ! Show up: 09/15/2032 14:37:00 EDT Due Date/Time: 10/15/2032 14:37:00 EDT Normal [facility] Insurance Correspondenceon 0 11-14-2022 Insurance Correspondence [id number]#1.00CD:12 7 [facility] Consent for Procedure/Surger yon 11-10-2022 Consent for Procedure/Surgery [id number]#1.00CD:1 27 [facility] Ambulatory Visit Summaryon 0 11-09-2022 Ambulatory [...] such a (more content not included)... Normal [facility] Gastroenterology Office/Clin ic Noteon 11-09-2022 Gastroenterology [...] Was previously evaluated in the ED at [facility] [place] and note indicated patient with blood [...] 09/26/2022 reveal (more content not included)... Normal [facility] Comment on above: Result Comment: Elec [...] ask your health care provider. ? Take opio-pqk-udxippw and prescription medicines only as told by your health care provider. ? Do not use scmi-wah-kuoezzg medicines in place of prescription medicines unless [...] ask your health care provider. ? Take bvma-acj-rmttxfy and prescription medicines only as told by your health care provider. Do not use bssb-sct-wngyvss medicines in place of prescription medicines unless your health care provider approves. ? Limit your alcohol and caffeine intake. ? Keep all follow-up visits. This is important. This information is not intended to replace advice given to you by your health care provider. Make sure you discuss any questions you have with your health care provider. Document Revised: 11/12/2021 Document Reviewed: 11/12/2021 Elsevier Patient Education ? 2022 [employer] [facility] Postoperative Documentson Postoperative Documents [id number]#1.00CD:1 27 Normal [facility] IntraOperative Documentson 0 10-07-2022 IntraOperative Documents [id number]#1.00CD:1 27 [facility] XR thoracic spine 2Von 10-06 XR thoracic spine 2V [facility] Main [address] [address] XRay Report Signed Patient: Berenice Santos MR#: [id number] : 1995 Acct:[id number] Age/Sex: 27 / F ADM Date: 10/06/22 Loc: SOXD Room: Type: [facility] CLI Attending Dr: William Payne MD Copies to: William Payne MD Ordering Provider: Wliliam Payne MD Date of Service: 10/06/22 XR/XR thoracic spine 2V: PAIN THORACIC SPINE - - 2 views CLINICAL HISTORY: Mid back pain for one month. COMPARISON: None FINDINGS: Pedicles appear intact. Vertebral bodies appear intact. No significant degenerative change or acute bony process. XR/XR thoracic spine 2V IMPRESSION: NO ACUTE BONY PROCESS. Impression dictated by: Jairo Lopez Jr., D.O.10/06/2022 4:48 PM Dictation Location: [place] [address] Transcribed By: [facility] 10/06/221647 Dictated By: Jairo Lopez Jr, DO 10/06/221647 Signed By: 10/06/22 1648 [facility] XR cerv spine AP/LAT/FLX/EXT on 10-05-2022 XR cerv spine AP/LAT/FLX/EXT [facility] Main [place] [address] [place] [address] XRay Report Signed Patient: Berenice Santos MR#: [id number] : 1995 Acct:[id number] Age/Sex: 27 / F ADM Date: 10/05/22 Loc: XD250 Room: Type: [facility] CLI Attending Dr: William Payne MD Copies [...] Troy Canales M.D.10/05/2022 1:02 PM Dictation Location: [facility]IO-PC-07 Transcribed By: BERNIE 10/05/22 1302 Dictated By: Troy Canales II, MD 10/05/22 1259 Signed By: 10/05/22 1302 Normal [facility] XR shoulder RT min 2V*on XR shoulder RT min 2V* [facility] Main [place] [address] [place] [address] XRay Report Signed Patient: Berenice Santos MR#: [id number] : 1995 Acct:[id number] Age/Sex: 27 / F ADM Date: 10/05/22 Loc: XD250 Room: Type: [facility] Attending Dr: William Payne MD Copies [...] Troy Canales M.D.10/05/2022 1:04 PM Dictation Location: [facility]-07 Transcribed By: BERNIE 10/05/22 1304 Dictated By: Troy Canales II, MD 10/05/22 1302 Signed By: 10/05/22 1304 [facility] Consenton 09-28-2022 Consent [id number]#1.00CD:1 27 [facility] Discharge Instructionson Discharge Instructions [id number]#1.00CD:1 27 [facility] Main OR Intraoperative Recor don 09-27-2022 Main OR Intraoperative Record IntraOp Document Type FT Summary Primary Physician: Roma HAWKINS MD Finalized Date/Time: 09/27/22 14:50:44 Pt. Name: BERENICE SANTOS/Sex: 1995 Female Med Rec #: [id number] Physician: Roma HAWKINS MD Financial #: [id number] Pt. Type: O Room/Bed: Endo OP 05/18 [...] 1 Entry 2 Entry 3 Case Attendee Teresa GARCIA, Kamar Blount RN, Ruth Gaines Role Performed Anesthesiologist Greens Or Grounds Superintendent - Primary Scrub - Primary Preventive Medicine Specialist Time In 09/26/22 13:25:00 09/26/22 13:25:00 09/26/22 13:25:00 Time Out 09/26/22 13:42:00 09/26/22 13:42:00 09/26/22 13:42:00 Procedure EGD AND COLONOSCOPY(.) EGD AND COLONOSCOPY(.) EGD AND COLONOSCOPY(.) Comments Dr. Noel supervising case Last Modified By: Mine RN, Darlyn Blount RN, Darlyn Blount RN, Darlyn Urias 09/26/22 13:43:03 F 09/26/22 13:43:03 F 09/26/22 [...] Kamar Schmitt Given Participants Mine Butler RN, Darlyn Bill Kirstyn K, Sparks, Micala E, SALAM MD, [...] and tissue Entry 1 Skin Integrity Intact, [place], Warm, and Skin Abnormality No Dry Outcomes Met? Yes Last Modified By: Darlyn Blount RN 09/26/22 10:08:37 Post-Care Text: The patient is free from signs and symptoms of injury caused by extraneous objects Patient Positioning FT Pre-Care Text: Identifies physical alterations that require additional precautions for procedure-specific positioning, ara (more content not included)... Normal [facility] Main OR PACU I Recordon 09-15 Main OR PACU I Record PACU Phase I Document Type FT Summary Primary Physician: Roma HAWKINS MD Finalized Date/Time: 09/27/22 09:59:55 Pt. Name: BERENICE SANTOS/Sex: 1995 Female Med Rec #: [id number] Physician: Roma HAWKINS MD Financial #: [id number] Pt. Type: O Room/Bed: Endo OP 05/18 [...] Roseline Mcbride RN Document Signatures Signed By: Roseline Mcbride RN 09/27/22 09:59 [facility] Pre-Certification Formon Pre-Certification Form [id number]#1.00CD:12 7 [facility] Progress Note-Physicianon Progress Note-Physician Patient: BERENICE SANTOS Age: 27 years Sex: Female : 1995 Associated Diagnoses: None Author: Sam Noel Jr., DO Postoperative Information Postoperative disposition: Postoperative disposition: Home. Optimetrix number: Optimetrix number [id number]. Anesthetic utilized: General. Physical Examination Vital Signs [...] Ambulatory Surgery Unit, and To home ). Normal [facility] Comment on above: Result Comment: Elec tronically Signed By: Sam Noel Jr., DO\Date and Time Signed: 09/27/22 06:50 EDT Consent for Treatmenton 09-15 Consent for Treatment [id number]#1.00CD:12 7 Normal [facility] Endoscopic Procedure Report - Otheron 09-26-2022 [...] Return to activities:: After 24 hours. Normal [facility] Comment on above: Result Comment: Elec [...] pylori 3. Normal duodenum Images Procedure images: Rec_hd_video___34_212.jpg Rec_hd_video___06_886.jpg Rec_hd_video___24_247.jpg . Post-Procedure Complications: none. Estimated blood [...] daily 4. Avoid NSAIDs and alcohol Normal [facility] Comment on above: Result Comment: Elec tronically Signed By: Roma HAWKINS MD\.br\Date and Time Signed: 09/26/22 13:30 EDT Other Comment: Phyllis jo Attachment - attachment storage system not supported [id number] Can be viewed in source systemMissing Attachment - attachment storage system not supported [id number] Can be viewed in source systemMissing Attachment - attachment storage system not supported [id number] Can be viewed in source system Main OR Preoperative Recordo n 09-26-2022 Main OR Preoperative Record Holding Area Document Type FT Summary Primary Physician: Roma HAWKINS MD Finalized Date/Time: 09/26/22 12:59:29 Pt. Name: BERENICE SANTOS D.O.B./Sex: 1995 Female Med Rec #: [id number] Physician: Roma HAWKINS MD Financial #: [id number] Pt. Type: O Room/Bed: Endo OP 05/18 [...] By: Syed Chung RN 09/26/22 12:59 Normal [facility] Monitor Recordon 09-26-2022 Monitor Record [id number]#1.00CD:1 27 Normal [facility] Monitor Record [id number]#1.00CD:1 27 Normal [facility] Progress Note-Physicianon Progress Note-Physician Patient: BERENICE [...] follow instructions per packaging and physician's handout, [facility], 157, cm, 07/27/22 9:34:00 EDT, Height/Length Dosing, 76.7, kg, 07/27/22 9:34:00 EDT, Weight Dosing Zofran ODT 4 mg Tab-Dis: 4 mg = 1 tab(s), Oral, q8hr, PRN Nausea/Vomiting, # 12 tab(s), Refills(s) 0, Pharmacy: [facility], 157, cm, 03/23/22 13:50:00 EST, Height/Length [...] Problems Blood in stool / SNOMED CT 0307351103 / Confirmed BMI 31.0-31.9,adult / SNOMED CT 572791596 / Confirmed Cholelithiasis / SNOMED CT 652217113 / Confirmed Chronic midline low back pain with sciatica / SNOMED CT 509302356 / Confirmed Epigastric pain / SNOMED CT 701801410 / Confirmed Family history of colonic polyps / SNOMED CT 5451427817 / Confirmed Nausea and vomiting / SNOMED CT 32098595 / Confirmed Rectal bleeding / SNOMED CT 276387552 / Confirmed Smoker / SNOMED CT 093843757 / Confirmed Added secondary to documentation in Social History. Trochanteric bursitis of left hip / SNOMED CT 97832836 / Confirmed Resolved: / SNOMED CT 690148423 Resolved: DDD (degenerative disc disease), cervical / SNOMED CT 9E827U79-0BF3-9651-2O10-6 9298CX3S837 Canceled: Back pain / SNOMED CT 390348898 Canceled: Smoker / IMO [id number] Added secondary to documentation in Social History. Histories Past Medical History: Active Blood in stool (6166518432) Resolved (757288048): Onset on 04/17/2012 at 16 years. Resolved on 12/27/2012 at 17 years. DDD (degenerative disc disease), cervical ([id number]- [id number]): Resolved. Procedure history: None (235524669). 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 Respiratory: Lungs are clear to auscultation, Respirations are non-labored. Cardiovascular: Regular rhythm. Plan [place] [employer]esthes[employer] (ASA) physical status classification: Class II. Anesthetic Preoperative Plan: Anesthesia General, and -TIVA. 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 female here [...] should p (more content not included)... Normal [facility] Comment on above: Result Comment: Elec [...] ovarian syndrome (PCOS). ? Binge-eating disorder. ? Ponce syndrome. ? Taking certain medicines, such as [...] food choices, such as grocery stores and [employer] markets. What are the signs or symptoms? [...] have to (more content not included)... Normal [facility] Coding Summary.on 08-04-2022 Coding Summary. CD:780683Othn43JXv1q Ww+PG hlYWQ+EY3EHTNaR49chWGwxS8 yQ7CPNOeFZirbJTVUJQcVImDf cqArCO1tcVMvKVOy IC8+YO8bEDCkDqfvpVRmc6U7j MD1F00jor8mPVomySG7LYDqHm Ufieduy7fwxUd7LAxvZqthYkX t XRXdsB65BZR7vO75Kt81mCYsy KBwj8sosSk1SpNcPEHtOTH6aI siQEosg4CzVXOzB94viDGpc7Q 6 NUFplDkxoNDeZhQpbLZ5lQ9rM Jlmgnoqa8tisrxmHax0or51cM Sww7Y9oID7S9EiloM2WUWefHM g PsodfCQIqH6hgcbbo4mjbqflT dQdASEaZMq9WOy5FTQdlVouQn YiRS19JEU5TNRubwTfM8PuSSU s kQdzPlV2p4O0Mf2YU1LWWumeV 1VNTUFSWTwvdGQ+EX94cs66F4 KyFtldKoq8YYAgURX3eSJ3zA9 n YQVgPPdhu3Z9fHF4K9BwqtDym m2is6ftPDTsNCgrF58ufFRpf2 V2YIEwpUE4EUYipMyaCbXqyS1 3 Oyc+HOIkgEgqy2IlNsctk4lvx 7gtlFg3GceyANUzoyYfhGzzOJ E5a7XaNe4wWUHjiRC3uLO6zY8 i TwSsYgF2OKktS858XkOlyXEaD plnV46wH8OcyUO+TGMcXif1IW AgjXkoWU4uG8TvTCIduckwmZE m nSsaBW8mGFJbfkztZBIpgV6gX LLaO0l8QbNoJxH7SAcnK5InYS KrwyrbEo27cF6fKwTeMmE3HWs u I2YetiW1XBNgkAHdSPcfEWQ5M 81qm8D7CZVhKCIeWBH8xCH1aZ 1hbGlnbjogbGVmdDsgdmVydGl j MXafMYvhS575ICZqpRkgBqPhA GluZyBEYXRlOiAgMDQvMjAvMj AyMzwvdGQ+RKFwCWM0zMuwIAJ n dFIbKYzmDx7rrZnexRfxQN7fH RWxiobuBFXxzE4qGALowXRfcB etDO0tUMJwtdsnl169DdWdLFR 0 LTSdoZGyZ6LzxQ8uVjTuELKdZ KGkN3QftGTqIAauS355NRzeCr I1RLIvtaWzN9BrFAItbFgkTbV 0 a1A7Ke9Rl6JgzaylN9BniUHjD wDaKcsgJSn6L8FtIlpmdPF+PC 65QBHjFS90KNp8HOY1yJryPQr i AJCvR7HcdX8lNyNdUBXyLEKkG yc+PHRhYmxlIHdpZHRoPScxMD ZoIcUlgLdhIQ7sTm1uZKFlGEB v sYggeGGxVnDvw6hzIGJeBIjuE Y2joXqvO4JlhDH0TYNbj5j2Ir 35B39sP1JboIL+NTVizCS6qWI 0 aS3lSuDzOpQ9GIlsH849BwFle UAhRjnaj2mwa5ckxDl3EmY6GK SypnPhtUfoTPZ5z2EgRp84V07 s IHdpZHRoPSIxNSUiIHZhbGlnb s7lrQ7rKs5+DOCscBC0jXZ9iR 6zTpWrFlW1QQvzF420KnSgfBN v Cntzy1ucy5ideEi7NcIpCINyu iErjQasNXN7r1OeYm82Y6HewQ edo3SzYoe1dm28pECdg8S8qKO 9 M5SiUKIrsxeyyFNaxWqoII2nR JZddrtcINZalR0zOQKoB7f8Mc VaRbX5MMxgB4IsnpT8SVYkdQF g QGOdcVOQyM0romajo9cholptY fVqLSPqMLk2EQc6QKTwxLleRs KiJDY9KlG9ASV6qNGilT4dsWi n vditvP1rWoj+ZQD6oZDddNKVO R5fVfrfcXT+BVFmXAJ9kEfnEQ tuBSQvmJ6xYKHeA0g4ZpDuTmF 1 OCnjG2ZpcwG5RSWafNZpPUQid ZYLiE2witrlg1kpxbtyBpVkUM HuWFp5YJx1YMExlWasVeUiTTW 0 RiA7VRZ2aLZvtQ9vgPxnvisvq G9wOyc+QoorhGrxJVZ7TIz6T3 YbSmm3YFOiqBgyWR0gkRNbOXj u Rt2eiVyoaMxuWC7zMJOgfhbsu 630AcGgl5bpCAPnwDJrMKorLZ Q4B81zm0W7WQGrVQGyWHS3vDD 4 hT0toDmsxqmkxKDnhEbqnrZop CioXRuoPFssD182KGVpfAepIc WzDZt4H9LzXoj0RIAakEogJU0 n kCQtPSysVx5ckPiinFqrGE5zK GDdwtukd743StVln0rwGSLyzY UuJWoqGOS0V59mi6D0RUYcPGD w WEV6oUA8pW1pdGhldzvwmTUgl XoteaNlmNncAEhoCJxxD449RW PxsIbuJqGdrHl9F8JoWpm5JGQ z pNbpEY9mqAWlHPrdSy3nmYpkd BsmAE7tWUIdlknle475IwPco6 pjPKQazRNkZEbbTAS6W22ww4P 6 RNRcQYJgQQV6uAY7iJ8skEwep jogbGVmdDsgdmVydGljYWwtYW szM150ODNnzCteStSzqUcuhkG g ZEkmWOh8Y7RgWjrznTY+PC90Y CYhLE13hEOydLAzt2cnuWw9Kn KjBYPvTUI6qGrvGQgdb2VnSYT t K01lrLTmy9Q8WDYlhDnqoCCeC gOxzIZ1zN7jUKshapblm3jyej kzBcnvt9sctr65kP72I24cVHp p YSRzXLPmHGJmBJLhkFpqqc8ur G9wIi8+EWEsqRR6tBT7jU7bUS MkAxQ1XHarK446MeLanNNbHkq j e9lar2fzvNo1PtV1MFNcmhLjl XwsSMC5x3FtNi59S44wRHacJE OkIRQrBZWuUPRbyBeqwf1krE6 w Ii8+WMEdsIS0pBR0pD1zPtXqD sW3OGxpN214UjUvfNBaPwxmE9 6mG4WduIE+WWRkMgx5DSLwuJb s YN5qlPFcHRirDv6pKGD4BvHlM kSfYOqdX7YsVSBwvrmfoilmaX S9NEGhIEEkmL40Kh7soKrzSEC w qYYLaO3wudlnt4dysqgpEqPrX XZkEFo6MZy0XZKbzJoeVnHcKE J9YyS5WIQ0dGUpyE5nuQbbrlw g aC5fW9SlHTFmkhkoZs18jW5fN gLnQaL0XMlnBlz+DFXTM7DYVW 1dNNyCY2cVZNTHDH71AI55zCJ g e9M7pQT3F4GyDIDygnjmrhozm FI5IPSyAYHcrU33wPNaSKdgOh 3kz1I2g970WIKxUQOmiY84Vs9 u sSruBFKtdLGHoA8aegdov1kwy icjObEvYRZzYAj3VCw3TLDwaO ybYpNlLJV0PaH2BZW3rSOdbV3 h kBkcnjvnqS1fBur+MDIvMDgvM Ln2SNqjpKP+APGhJMO7kLrjWJ toVLVdjM6tPIXdF3r2MxUcYoZ 1 CEwwI6PfCZWyboeaDa69lY2wR bFhRoG0NZznH2GrsgO1KGXpiY QfPFsrBQJ9N69mg0E3SXPsPOX w NWA4zLG8nF7doHeansuuwWAbw ZomicNwrFajYEnqPRxlY862CF UbgUmpEzP1ELlnMRXpKT20XI8 8 oOYik5K9gHR5G2GmTVLqbwcmq reccHV5CUUbUFAwuO14bPUiHT lqIl8lf8I8f242PQXbODWxdZ4 7 Am3wdSeoHOMkuKKAzK9lhqnbn 3kqzzomHsSuQIUvDRx6RWr7MM JhhMuwKlZmMHL3MmM7TEX7dER h rD5pdNjmginvsL4lUwx+RmVtY BpdIB34IG39rQWej6O6gBI7R1 MfSZKveafvhypfaMN1HKJeKEQ w iW97yLKlECkcZu8nc6Q2o564T EBlFCFyiJ81Cn8evUfuPFJlgI JUeV6jalcqr3pjxfuqNtHdAHU w HRj4WDm9WJZvrCwqBeAaMBT7E xC2SZU8nXJcqT3cvLnwpurlfJ 9wOyc+C7F4mZD7sDFvvBminPB + UC74do84E1ApNbjaHuc7FKGoQ PD9eNG0mF7xALXmWXcgj5Y2yR A4G8RwgrOpnl0nm8gtGMPfPCr g G91uyVNvu6G7PNDpzQD5DTNqs BndVaPllL12Bjn+PGNvbGdyb3 LwFqtef4jqu0wnzTo9GuZdMBA g irRyaCbzOSJ9n5GxXm79Q78yD HdpZHRoPSIzMCUiIHZhbGlnbj 9goZ3zRo0+ZZVdfPY5zJC3fU5 i WrXwHpX0CYccL135NxFvwEBsF btdm6kol0zyvJh1GwXwCEHhbk UjrDydZUD8p7BvSf62O1VufEb y n1SkHjk0zw65aUQwu9T8qCU1D 4QmYTMiqvsorIExjRgaDC0kVJ BremsgWFJpuN4jFBHsT3e6HqX w ZlI0RMrgN8GvmtC3MMUprKYzQ UJygQLGwS1uuwhkt9fpuzkiXg NuSGYjIUy8NQe4GILmsTjcJmY s MFP2IiC8MHH2tSBkrO8mcHewl yeqyW1sFaj+GJo3i0kjyOIwYP 9heRF7SZ70NI16pKXxd8U0vJV 9 R7VnKVZxudpzwyhuzRD9GUNoC FVrpD59Zm2bsEsoLu8pGDZzGH P9NNAwjMRoR8SihI6gGlCpTMI w PWXxF5YphKMwUNvtL799PPabR oA3AUXxqkHlD4QlHOTlvPmuVa L7m1A9Ji6ILZ33CT15TM19dDF g q6G6fIC3M5GeEFHckftyziukm DK0YTKvIEPocR83Fy8elJbsJp 0aCNScNUF4VYAmrQXaS7GlyS8 y TqGmRGBjHSZxC1KixNTlIQymO 927YQtvZxI1QXOeqyEtP2NtYF HqqGudEbN7z6L1Cp6NGv31EE1 0 OV47xYPey7A8eOK3V4IcSIHpp xuzsktedEC1IHTpNQAkwE59Up 3siKfnMr5aAWQlZGY5SCYnpDS z S0ZpwV4qUrUyZCXfJAEzM8Uke MDnTHoaK981PQhdWjP4SPCnfw GwX0TaRUZcxQulFyA8k7S3Zg2 Q QZmooiz5E0LtCjjbnOV+PC90Y JTvXC72oIGsfYUpb8fewOd2Xw EzUBPsCGS2iKvzFLqcv7DdLKA t Q13dkQAp (more content not included)... Normal [facility] Coding Summary.on 08-03-2022 Coding Summary. CD:[id number] Ww+PG hlYWQ+GP8FTOFgP10vrOSszM1 vS2WUZBlNIuduHSHEMMgKTpUf pcLxIB9vsWHfMTMz IC8+VI5mHXLtKmeomMAwl7F4r KQ3K26bgz5qGLohtSI2BFZjUu Abxioss7ngdOy1MRfoWsemRdE t RAAhyU08SLF0sI77Cg77mGOts MUxc9oyuLf7ZwJtPHQzACK8yM pcPNyaa9HkGGZiZ34enDYrg2Q 6 PAPetPvbdBWqBnZoqHG7nP5bS Zgqedlua9jyuvdmVpp1mg91nQ Dsb1G5cBB5L6TgtgZ2WYZgzTH g ElaykETRzU8mwbltb4kimparQ uSeQHRzJNb2ZGl7GMQlcRslIh KbAT69KWL6EOUwwyQhR2MiFRF s gRcwSuC4z2C0Nu4KZ1YBEltnA 1VNTUFSWTwvdGQ+LK95io92V2 SxMksxFfq9ANVbBIW1rOH5sE9 n MZOuIJjkm1X8qPU6R4AepkVbv q4td1pqOBMrXKigH27jsVCki4 B5LTAdxEN4XSOxnAjkIdMihS0 3 Oyc+NJYxfBdps4NvOkcqq6rea 7phhSu9AvmxOAMylzZpyZerVK G8v6BsBy1xPFIkiQJ1tST7dG2 i WxZxYgW9SFyrD757QePkgBItM qwzI42qT9FmpQS+OHCaLup2WN XifWrjXP3sS3BvNGAnetjtaLK m lFkmVF4lWTCcfmquLJPdbB1lV AVzJ0t0EeLtWvB3FUpyJ9LhYI BcecjcNf29gY4qMhHkVwO8QWe u I1TilhU7IXUspAUpJYmtTFJ2E 13fa0S0YATmLLXsCKP2lIO0iC 1hbGlnbjogbGVmdDsgdmVydGl j ZWttLYczS871OCZwnBjyBgRuZ GluZyBEYXRlOiAgMDQvMTkvMj AyMzwvdGQ+DSBkZBN1dSuiBXY n yGRnQEjcQi0ujNbymGnmKZ5wD TMlyyftXSWthB4lLDApbEQvtV qdRU9zUYIqcptsc816HyQtGDL 0 BJWnqPZdK1OpyK7jTcLoLWPpN GBwE3YdnBTgVQcbC984XEczWq D3COXwyoAbY0VwKTXquOfwLiX 0 z5N1Bo5Sa4VllkfsM5DskXAeF bJyRhnjUBv6C2HaSussgWB+PC 29ABDlJP33FPf4RYP7hXksDQz i OTEtA5SvpG9oNyUuKRBbOSFcI yc+PHRhYmxlIHdpZHRoPScxMD VgQgHvwFgxRP1nXz3vHIUpWNL v pXdmdQNkJyBfy0nzUAQkMByvR T7brUhtW3LqhQM3IUJxe1l1Lk 08V23oF0WfqCW+PAGpmDH1sCU 0 mH1gAtUdKzD7KJfnP267DyNie XDdKkxjj7ewm4ullQf0DsT0LM XfzgQiyJrgFJC9u9WiGo25V42 s IHdpZHRoPSIxNSUiIHZhbGlnb k6oeR8wJi6+AILobSP4lTV2iZ 2wWaSeBvS0BLunO366UyAtuZJ v Mrxmg5ild1xvfEr9YhEkZBIra uIyuWbzIIH6q6KyGw50E0QnuJ eot2MuNmq5ma50xZKgm4I1sNY 9 E5GcBQAqsstakWLknQfvZI8sV IMsawcoGLKutL8yVEPeR2j4Eb ThQbO0CFxnM7AskwY0CKMhnLL g XADlsPUCfL4dsyitd5hwecdvP eRsPIWnTWg0PWe9EJZccXrnAo XxQDO9HeL2UZD2sOTqzC0tzCg n rybiiU5gXvb+YRY9uTZreNYIJ B8fUzwboOG+VOTsUDS2qTzmFS dqBHOflU5lHKQtJ5d9PvNnNbN 1 PTupZ8EijyV4YTHvtYKuRCBin HRInO7vknxan7gvycrdNnNeDG HeUAa8WCq8YSDbqJnrXrLuCIN 0 GgF2CMP4lOKduW9fgFigrrepy G9wOyc+UvrriObmUIJ7CSa2J8 LtFqn7MFNkqOfaLD9jiMQmRWh u Ks4duZjjcCojAG5xZKDcsbhkk 725GrVmz3hgPKBltTZxPKtePJ N3B39py4O8ATIyDKIzZQB9vYE 4 nP7fkDeackontIBizUdpqwByd AkdSYfdOKzcN334ADBwwJzgZz QhCXa4B1PaAlq0SDGalIbzVJ1 n bGIaOVcdLq6xyHgfhTyrSH8eB OKgczolo266EiXmd2xcYRPtqY PpZBtjQXT1U14aa7P7MXWtTMJ w RPA3nAF3dN7fzOtkvhgtmYXhc CvbghBcxUkeXJewDMgeK742NS EqeVigDiChbIu8E6NfFlb9EMH z wBpxKY1ekUExGJwgQj2anJtfq XnmBE4mOXYscbcud828McToy8 imIDLbmUTxNRaeKWI5H90xr1Y 6 JRUuKPLqNZV4oAL6tI0geJani jogbGVmdDsgdmVydGljYWwtYW wyG678RPZxhGyfDnVpaAbmduW g ROysBXs5Q7OdAuijiXM+PC90Y XUtZO31dQVeaEKub6vsnWn0Ug ChZAIjOPS0hFtxEEvzy2ZoUEJ t V37ysXVad1U4TTLbaLralVVvF wTefEX0oR4wZAfvnkwqo5khxu euJyhkz6fuey67aL25M58gOCu p XCDeTTVlJRJqBXQsxFqrqn7dz G9wIi8+RCDffGI9lXK5aE0wSR BeDpT9GKhcW188YwTmiYUqMdt j q9xkb5ffvGz5JiV6QTZoxiLpz WfkKKC2m9KwYo35K53fBLquAK DhECRcEXNuFQJltFmvpx3vbL4 w Ii8+WPVsuQG5bRL2mL0xOtReV oD6DEjqN498LtWbpAUlZzuaL7 0dA8QgrCQ+RLYzUlt8XXAwwOm s ZI4rrPXcGPdmVk8uNXP2UdKbX wXuDUelS5BeRGQiivzangkxjZ D3RKJpYVBxbP71Kl7elScrYBO w sNMGzU1puefak5pgaybvEiUpZ RRlQUr2QId1XKAaxVdqEgQqAY Q2BpE1BKV7xKCcmF2ujPktkls g uX4wL9FtWEVeclsvVq48dP8rT bOpCkV3KCkzJtw+OEKEG9CLYE 0yVHiEH1jBFBXDZQ45RY52jXD g q0A3uKX6S8NxPEUaomevuwqqn IN7OHTlZONmeW71fTCrOEdeRb 6zc4H1r297RQNpPYDkmU10El3 u qIbaZHVvaTTTxY2gynmaa5yqv yovBcMsATTuKTw2ZFu2MXNphC wxXxAfNNX1XaY6LMT2qDVmeS4 h tHdgtwppbU5sJdh+MDIvMDgvM Zw0ETpcyTA+WSKkQQR8ePxpZM kxKCRrgY8sTTMdN1d7AdVpVxD 1 WFciX8XnZIEwnwdxJj80nT2xS zEzTsS5IMftK2YgerI2AXEqxF DyAAjbNWT2S13bl6Y9JTSwNBS w WCK1sIG7oR0wiCxnjjgmzCWhe WaiuqXmcBjiDEjgYJhvN132KP DjyBdyZxY9TMepSXKrUN89WB7 8 gJMdl2W1kLN4L6GgBZQfivtqj ifioKV4KYNfCEWtnI80hDLmFH vhBi4kq9F3g627XDPnHPHitK1 7 Ks1xfJifDZJtfOTKbL7olfcsq 0lcifpuRuCqCARlVUi1DTb3RH XnuYrmDrMeZBV9WkY3KWA5dYK h qR5psRtgljnhmO5dHxd+RmVtY PcwFF22MR62bUTkb1W9pTO9Q9 MfEXDqjpfkcfcvkCA4DFLbMWP w tC75jAOoXFpbSe1qi5V3t973L IEiQNOdfM25Be9qzXdmJDVpiO PErV9ocxrun3uzanamNdBzXLH w NAm8YBl1EDXuoEswGaRiCOB4S tI2ITS2nVNjaS5qlCkzlthcdJ 9wOyc+N7D0mYW3eNVdxIbiqHX + FL59vn05Y1BpAwkkYto7BTHzF YH5bZF3sD6aXKWdLIvmh0E7lL O3N3QbheFzio6ov1oyCNEpRJd g L76doKBiz6P2WWXpnMU9MXTgm OzhUaNscY16Csm+PGNvbGdyb3 UoZuqtp9orv9yeuDo5WrGsCLJ g zaPrqBoiNWB6w5LdTx39U69uE HdpZHRoPSIzMCUiIHZhbGlnbj 1hnQ2iOc0+WWFcyFH3qLK1sG1 i AoAnMrX4DVqfO316KdJclHEhG hhyd9kcd7wnlOm9FsZrVOYgvq AopAzxAZF9v2YnDq42J7NheZb y f5KhMme6xe40lPYel3E1bHW0H 8AdWRGrhupliJPnpWrmBH4sNU QqgmysJVVrmO3qOMVhJ8z9PkG w CfQ4XHlxW5IcsfE4JXSvgKFeT VHmvTKHqR9xifwuy8kwtbdfIg UbNDIkOBl6ZMw2ANYpbNutRqM s EZJ3DdP6VDO6vQIibA8qcEsad ktbmV7bQdl+SLq5a6xqcJJyPH 9jpBT9BH66IZ09mHRbv0N7dBV 9 H9PkHFPwdpnglxeftHE0FQRzC SBshM24Kk9nuFccEz5xEEJfKP J8NHBvwIReX3UsrC9xKzRdEIR w RIRvL7XwaMYqRFczF734GSqfU rY5BOXokcBfQ1EiCVGbzQifRa L8m7V5Uw8YIY85YS13ZV44eML g i6S2yHV8A8NlMWDpofknealgk JQ1OKIoLEKrjN29By7qvUiwUz 5lIZGeAFY2GLVttKJgW3AauS8 y CuCbRNJoGJXaW4OvnWJcBJqzA 261LBykYhU9RKAtylBlT7EtVO CycXvmOzE9b4N2Eu1CYp43MW7 0 MP09lXNrq2S3uGJ8X0DnJAQiw vzjikvifSQ7AGUiOXOxyI00Pw 5rlSufUu0fKSSyXGY2ZSUudZS z M8KhlG3gXcKpPSObUDApN5Ueg GZfKPvdS456DKebZzF3VWScnk LnZ0BnZSGkrFhyBmG0b1K0Ha1 Q QVgvdxm0N8PpLufgyKY+PC90Y ZHvQY41dJLcgJQhz6rpsMo0Bb NhPRByQVR0xKazRNkmu9PnGVY t Q22kuFMe (more content not included)... Normal [facility] Provider Letter FTon 08-02 Provider Letter [facility] [place] 02, 2022 BERENICE SANTOS [address] [place] [address] [place] [address] BERENICE SANTOS 1995 Dear Berenice , We have been trying to reach you with no success. It is important that you return our call regarding your ultrasound upon receiving this letter. Also, at the time of your call, please provide us with your current information. Thank you for your prompt attention to this matter. Sincerely, [facility] [phone] Normal [facility] MRI Spine Lumbar w/o Contras ton [...] by: WHITNEY Technologist: SHELBY Technical Comments None [facility] Consent for Treatmenton 07-16 Consent for Treatment [id number]#1.00CD:12 7 [facility] Consent for Treatment [id number]#1.00CD:12 7 [facility] RAD - MRI Screening Formon 0 07-29-2022 RAD - MRI Screening Form [id number]#1.00CD:1 27 [facility] US Gallbladderon 07-29-2022 US Gallbladder Exam Date/Time: [...] Ruth MD Transcribed by: WHITNEY Technologist: CHLOÉ Gould [facility] Ambulatory Visit Summaryon 0 07-27-2022 Ambulatory [...] Location\.br\ Comprehensive Metabolic Panel, Blood, Routine collect, 04/12/23, Order for future visit, Lab Collect, Epigastric pain [facility] Consent for Procedure/Surger yon 07-27-2022 Consent for Procedure/Surgery [id number]#1.00CD:12 7 Normal [facility] Gastroenterology Office/Clin ic Noteon 07-27-2022 Gastroenterology [...] was previously evaluated in the [place] [facility] [place] and note indicated patient with blood [...] follow instructions per packaging and physician's handout, [employer], 157, (more content not included)... Normal [facility] Comment on above: Result Comment: Elec [...] Follow these instructions at home: ? Take tdsy-lnh-dfqhooa and prescription medicines only as told by [...] the cause of the bleeding. ? Take zvaz-omq-chwscuy and prescription medicines only as told by your health care provider. ? Keep all follow-up visits as told by your health care provider. This is important. ? Get help right away if your bleeding increases, your symptoms are getting worse, or you have new symptoms. (more content not included)... [facility] Physician Orderon 07-25-2022 Physician Order [id number]#1.00CD:1 27 [facility] Pre-Certification Formon Pre-Certification Form [id number]#1.00CD:1 27 [facility] Coding Summary.on 07-08-2022 Coding Summary. CD:[id number] Ww+PG hlYWQ+NV0QRYToB50swVIfzC4 hO6TWRTyARqhaNUOJFChWXbZj wuXjYI7sfANtGZXd IC8+OM1nWDJiLfjkqTMlt8N6x TG7X98mwi6gWCllwUR8MGAfSd Hscyflb3ghqTw2ZYvcOzyeTzZ t QAEshY31ZOU9eZ39Yc21fFWbj OAdm9dlvVe5DxHgXUZpQZZ7pM awIKpux5OkIJYyK84qcBVuz8L 6 PKUpgPoxjYCpOqDnwGK7oB0rS Jxvaoijs8hilnqlToa1do24iE Bzr6V8cNM3C5JxmoT7FPXrzVE g DbetlDBXwA1hziwpo9qjfyjaB kSwINRnJVh7MJl4TFTnyImfLc EjRK48KAP5DMQxibKqZ3WtAFL s kHokFxX1r0X5On8YM1YWSuxsF 1VNTUFSWTwvdGQ+HO12vr06S2 IxLlxhAlh3CGBdZPU2uTF1kA3 n FCQyQXdtv4G5cEK4O0ShcgFsb d4he9mdRZGtLNvnR62raIEvp2 C6MHGggGA3APQvgPifSoXvgT0 3 Oyc+KYPjuChuj4EiZftnz1sji 5ifsHj6BqtzUUOekaBowSqkGW Z6n8ZkEk9eVXFanUU4nCD6yW4 i RzZfQhB4IUsmD200TkOgmPFvY cshA23aH0LfuEK+LMGqZzv8XQ KnyLqdML4hY4ThYXTbjobpaFL m mGfvLY7dSCPhhkwzHRUamJ8gA CXcE2x3YyBcVnE8UDvsJ3CwZB BlzlovCr71zN3wOmSzDjI4NAz u T4MjboP2ASHayFPeQAijYEQ1F 57no3D5EASpKNPoAXV0iMT9lT 1hbGlnbjogbGVmdDsgdmVydGl j IDfmCEouP185GKUzxScaBaFhO GluZyBEYXRlOiAgMDMvMjQvMj AyMzwvdGQ+HCRtSGT6nLpsTZG n zZPtFFndSl0evEhqdHhoUX4zN MIafeqrBTWejA6dNGSerFAejG rdTW5eBUQdeuszd680AlNsMHH 0 TIJsbHReB1GipS8uSoKkUEYdJ LElC6JerACxZOwsZ262XDkaDf Z8SVKnawZwQ6EwCUKueRmbMxU 0 c1P8Aj0Rr1IjkfwdS3AhrGUpP eRsGpmgUTz5J5MvLjtufHS+PC 96DSMkCD40XFu4HCN1rXsjXYt i RBLgC2OfkL2pOcRkUJDmCYViH yc+PHRhYmxlIHdpZHRoPScxMD BtIfAihUehFC6qEz2nBNAoRPM v hSbncWDfAfOnn3swKCWzDEluR G5yuBcnV7ZsoQX5ILImu9z4Yr 47R80rY3EyqZM+VMVzfHH9qUS 0 uY1dMjRlLdC1FFcmX894SyXuu DOfWacuz2gsh1hvqSn2PdO2TY RhgeAasGdgVNB2v6QyTb28G22 s IHdpZHRoPSIxNSUiIHZhbGlnb z9akU4uIc4+AAAjyCY4lMW0tD 2cMlMtKlW7KWvnC898LvXeaCT v Riwqt2swy3vkaOq9PpTrRXPpn wQqhCybMEA3o6IhZl89W1WqfP fli9IpCaq0oe66nEMxg8K7kIE 9 D8MiSSKwrcigyKWdbRuiHT4zR HRkxrpmDTFtaI8zAANvU9x5Vr KsSpP2NPvtX2UhzcI2FBLnhFG g TSRojYQSlV9enxamr5idcforC xRuOZGkJJe0GWr2NOQexIkcXv OjHOH5LeL0DNF6eYYdyE5siRd n mpzbzX5dPsr+QFY4fEOesFYVY Z7bXloqqPC+MRHrWVA6iFhvEF rfESYdnL5xVZBnP6s5HkYaVcM 1 EWviQ0XkesL9MLSdeMEyRQNtv PEHvU0scbwhm6hbjnuqTgFrAP HdIIr9KBk9DHTjzZzfAdSpYVP 0 JxC6AMA8wAQttI3ncEuywbaez G9wOyc+HoobbVsxUIU8PZl9H3 KuIzr8VMKboEjmBA2pmVNeISb u Ze0hzKklwFssKB1aLXJpmsmnt 709NgUnr6mwBBYzvJHgPZnwDE E8R67sg0H8OLJyQGElIIL2wXX 4 wS8vlGvxfntnaMUimKejmfXjd KmaBIumVPngX882DUAszEjkFp VsIRp3U4RhAcw0LAKtqSjeRC6 n gXPmZSoaGc6uoDkrdDqnLC5kE LRymgkrv709PzPjy4hqBQThtY IqHCdkZXJ6O34rh1B6EQThQVN w QJM8gGZ4wN7ulAyymbjstULag UiiruElcRvnRHtcPPwuO952SR YkpShpOjMrgXh8T2EmZpw8PCD z uZoyWX0fsZOwOTkzYv7xeObfp XlmEH5aYTQpnrwsb634CwDvk3 yaEYFgaJRrNRoqPOA8X36vl4U 6 DMLrOFYfPFP9hLL3iB1ipHxhm jogbGVmdDsgdmVydGljYWwtYW bmG413ICOolRnwBbZpkWjuwgJ g FGnuLGp4F7PbWpynoDM+PC90Y IVfEA25yLTcwAOif5pboXp8Zo BbSAJxTXO1sCfmJWgnb4HqYSY t T20yiCZnc6Y3BTYsyYcvxRDfA eDpeZM7nJ6sJKsfvrnyl5xeec pdXwvxs6znff64mB15P93xFIt p LLEaSIClBNKtASUjvJcccj7hr G9wIi8+KSZgvVU3ePP9dQ9tEX KgErO3VCkpY865VnMbbGTbToh j c6hql6rugMo2EiN3XKSaemAga UscDWS5b9KsUc47H30yZKwwGK OeMXEaFOBqYKWttGzngc8xsN3 w Ii8+YFXkrSE3jNN8kS2sJwYrB hO0YXczK815KkDecZTiNlhpT2 6hV9CryZB+YAZnNqx6IHDnrNo s IC2quDFxHDgzNl7lWAG6HwWjN hUsURilD1OvLBEyngnhbfrdhB I8SYQzCLIxjJ61Yt1btBxbRRV w oNWGkM8epyown6jufvfaJsHoJ RVsJPi6MZn9BNWvsNygFfTwIO K2LfD4WCA4hHDotC1fjZbeupv g cE0zY7LfYBVqslkwKu04dT0rW vGlZfJ9HVzyJpq+QKVUQ9AFAV 2eWOqUM4zXTLPDPT77DG85cLJ g k9J9xWJ0H4QwQNNiofiiyrzwc GH7VAVmDVBcgW11tVZaJXkwFk 5dn6N1g522CNTzMPOpkK26Jy7 u nHkbNBMteSJVpO6gxvmdu2dql nicJkOmZIHxDJj8PZj5AEUvfX xtYgUhXAU1VtA6QFH9vSVaiT1 h eMspbubplQ3gXyb+MDIvMDgvM Co1CRyydDY+MSPqYRK6eFkcSH rkZIHccX4lQIJtE6k9ZlBiEqF 1 BCnzM6LgTVFoukrwUk01iG6kZ pQeZvO3DOlxQ1RkadA3QMKepT BiMXinUFY6M76nz7B4TXZjZVT w RRL0nEM9vM2jnZdjxekntTCjk AstslOkbBazQBvvFTxmI698CX MujEepUoZ5WQemARAqWS78CZ2 8 qULpm8Y4aFK0M4EeCPRcvnvhl ocsiKY6USOwIAWgcI12jSJcCC gaIv8bq6U0t214OKPtUAKcnQ4 7 Ri2iaMxiKLDwpBDJiT8zrqjqg 3dwqzshJzIjBYLgLZv1QGa2NU CnwSsdNjVsAAV6PwK0EHZ0dMU h hE9bbWbqlevskU5cVxk+RmVtY BhoUP64OT05oLTvm1R7fCU6A9 AmSZFhsctgmvkweEI0FVNpUNU w yL39hKUxPNecXd6qo6S7y495P SYvKWCdhQ13Gg2diSsgOVIwkK QBkJ7yupram6phzvsrAaQzZRV w QJy0IXl3YVQnqYuzYzZjVZR1J xU8RML5eTBayQ6hiOavqzrwvJ 9wOyc+B8Y9eAF5xQBmiJztsFI + IH70ds82C3UcKsxgXin8NOCeQ RI8mAV8xA6pLADmXLdnv3O5fB B0V1JcsvIekc5jx0faLXNpLXt g R31huRVvs7M4MYFkyKE6ZNOjk KnhAjYtmA32Yng+PGNvbGdyb3 TiVdnms0xdv9fykPh1HsXvUGL g wwHqqGbtOGE5b1QtAc22O43nP HdpZHRoPSIzMCUiIHZhbGlnbj 5xhI6jPf6+CBGzrKI2mBF1zL8 i EiIhEjF7CBacN506VjKvqZIzK qfue2jiu4tcfQm5JuUbKPIxhp AbjKsvKMR0k9LnJo48C2JpxWf y z8ZsNfe2yl06iXWio4U5dKJ7A 2GvFDPvcxnxuGTggXhrXI8oUN FtmnjuECChfC8wLWKxX8x6OpI w BsR3RVsxM1JhloT9EQSnqXMwB NAptCDHsN0nmdaly9uadkuzKq YbXDYsWNh8FCt0JRCdaUhzWoZ s XLS8VvL5USD2kYPnvK9syOycd zmewX0gZbj+KVi3s6ieeBAuDR 4ggNH0IO00ZH18sXScc5X6mGG 9 F0QdOKRqowgenntrhMF0ENIvS UOblH12Df5clDxhKv1wATNzNV G9SJQbsDUcQ3HppB8dQvZsCIA w DKMeO2GiuELuBZprE034YZpyH eY4HMJchiKoJ0OdAFCgdVogNb J0y0I2Xe8NZO78US51ZC53gPD g z8B8oIW7H0XlFEBxxqpzdhkpg PQ9CTNzAALdcI58Qt9sjWgcLa 1mJUFqGQA3OVOtyVLrO4PwcH0 y BqXrIUQjLZUrR2FsnRIcWQqpS 696IUvwWcZ1CZFzhmXfH8MlAZ QubJbvHuW9s7A8Sn3HWy79PT3 0 NF12gTYsa4V7bBL0J1IzBWNuf yyerjmikVE9QLOlWHDhrG73Dq 6orKcfHj8yLLUkSPY6MVQguXE z J4TzkO8nWbZcOXQrRKXyF6Vhi YXyEZajJ530FBqlPtZ9FJOifh WlL6KwZNOrbNazIfZ2m0Z4Eg9 Q OGtwnwe6M2AuSywdeUT+PC90Y IAeRK48pAMntPXbc2sebPa4Zr CzTAHbHJX5eYxqREeon2MfMVC t A73mcIDg (more content not included)... Normal [facility] Consent for Treatmenton 06-15 Consent for Treatment [id number]#1.00CD:12 7 Normal [facility] Physician Orderon 07-02-2022 Physician Order [id number]#1.00CD:1 27 Normal [facility] XR Spine Lumbosacral Minimum 4 Viewson [...] Signature): 07/02/2022 11:44 am Signed by: Juan Ruht MD Transcribed by: WHITNEY Technologist: LILY Technical Comments Radiation Dose: Ka,r in mGy = na DAP = na Normal [facility] Coding Summary.on 03-25-2022 Coding Summary. CD:[id number]:[id number] Gh0bW w+PGhlYWQ+QT2JEWVzO92foGC itC6UO9uKHC1CZDTNOBNVHV2H KY5vcLP9VHggR5DgecRj DpqmdOLcSD96NFh3LKJ9pDqaF RdgnD1pfRPzY0a8GaZcWS25gB 95KAaoOIDvKiI4HsJtifofaVD y A3vyYtJwcPXgOmf+PHRhYmxlI HdpZHRoPScxMDAlJyBzdHlsZT 7jKm4sCHDiNBVekXfrmCScEdI j n3pzWNYrRQowDR2sqDmlD5Ufz YH3QAGve5k5Nk63uVP+PHRkIH T1xEasARvfu289NdNxw3vxHKD 3 hAUoDJxvZYB5B61tt7R1SNIeA ZElHVF3kOI0rM8fyGumthdpH3 QnhWHhHzT8MSW3dTMmvK2orGl n ukbuiG6aRpr+C13EDY1TCTSMA S0IUdv3N0BtJbukyFD+PC90YW PsDR08kKNonIUae3hdlHf0QtL w YTMiCJG9nGhfTTdxy8RaERTnY 49diMPws7U3YKGjzDnhbHQtUn JwuTI2gT0tABblsddqr9bhech n Uufru2ifuh92zH49R60wPLpsZ PUeTWG7BGReUQBlqJmeus9vgX 9wIi8+EMrxc8bgx1kksZn1NkF w XYMpdbAzgAxpUCQ5v8XdSg54N 0FfzKfqj0QlNgi6ag99uZRxe6 A0vXA9AMncFRJezR1eRGnmWwH 6 JTXfGsSjqL14eMFqOUpnDl9cm MlhhPtcDU3fRXQlaforYVEqvV 0zVHCcsUXpvHaoPB5eUGEezyw m l327SiQyPQL6VGOfmIJwA8Igw A1gZuAbBPYzRDMtA1GpaTQrEN plQ123ZOjwPhZ0JEHdnjBlJ0J s OZTdjBilAnW5n7N3Ov1Js1Auj xfaBAN9HTejHRTtHkJ8DnKjWu F5U1DjNsv1DIEjfXerZV5wO8K h WNAotxyfmbohbKU9OUQtUCWuv O55qRHeCYcgQd0nw9N2i760EC CsPFKeaM01Mu5trNhpNDPsqPR U jV7bzswac2grsygqKxLnBBNoY Ev0MVg2LKFxtKytWmLxTZO2Ys K7XDI3zRTkyH7fzVfxqpfbgM3 w Oyc+I04odH2xCRY4LVJ2jptwD BUddjMgAP90AF95V5TdVlilvS FibGU+WRMuzgYgeGubRO8lDdZ j f5ctw9OwLGdaH6BtUCZdBKgzU zr0VIRcUSD8qOQ8kS2bOBEmDW kbu6T5jTQ8J8SyksRyog9uf2b s PPXyDXwrP01zuTTxo9R4XTFjp QQ6FRBhwTxdFtJwfT34Lxi+PG FbzQctw7ZdAvtcr1ppr1zigGc 9 KtGoEPIvsgDevGhwYTL9l8GxC j99J29iOOzjVUGmNLAqHVNlMO JbcVomlb3gjW1rRi4+PGNvbCB 3 hSB8nH0zBCXhNvQ7YTkhH133Z iKpgSCkDcury8slb4qjxNl0Nb OhIYSzupLhtVwoIDF9f9CjSu0 8 B13mWCemIRWiWIHzNZApBGKjv Gngky9hmU9mAd3+MG2jk4xddq 87sE33jZJ+TTWlHPG2kMlmJDj w QWPsmZ3vRIvqGkX6GYVqWpEvy M61dXMzGQwbIw3qxSrkkXsdXN 7qECTripfdq607JkSfh6mbVZS w bACwQJgbKTV1J19bx7U8BLLyU RDdAZF1yAG9hP5meMtgpvuzdS QhpUzedkKyxUdpBEtkIUqrT90 6 IHRvcDsnPlBhdGllbnQgTmFtZ Pr6J9TiKmm6RBNheTfjMS5qrW OpEMuhDs1dxScknRjqLY0bYKU p qrsvo872BzChx1zxOBJbyQCtL LtaGMG6R22vw6V5PWBgEEOfCW Y9lCV0oL7ikIhvnjorhMCsvPa g shXuyVavTYrqAQnpE876UODws WzxDfKedbZuFSRlvAP5QZ51ST 61yDKgk5W8mCG7F3WtZJSpuit t yllztOQ6FRVdTIKzyA12Di5xy KkvOj5vCORwLED8LXQavXMwT8 HiwV8bGkSiYTPgGQCzL6ZpmXZ t WPszP184SCivSkT9BOHdaqSsU 6SjHPImpFrhLzU8v3L0Si1PS6 S9CZ38HY33sWMgg3X8mVF1C8C h PQZgafobwubyzJI4LEEoXDRly L29Lk2rzFypFq6cLOQeBZU4CT OuxRWhS0BymD4bNtDoYCRpJXD w V6KrhTXhSEfkS556UDgcZzS5A GFaxtJvG0RmKYUaaClwDnX3l5 E0Sq5TQTh9SF81XM62cYDtk8D 5 pQN9J9BeGXRiuvugcxroeRO6B TJfCYXhsJ58Gu9fxNilIb3dQI QrQKE2HUXzbGBtE1PmfW4xUrH j RSBfBNGbL9OxvAVyIJplY699R TlsFpY0GGDboqHyO9MgJVNehM obKzK8s4W2Br4JYUZdME96RBV 5 zAL9PT46UA67B1OlQwxopUFdt +PHRhYmxlIHdpZHRoPScxMD CySjKwgMvqBU0vOe5qRFMtWBT v oPsqzRAlGfLgn0vlLQShGOrzI R6yzWqqL3MjaUA7NVNgj9f2Si 64I47dM4OwyIS+OIUweLC4mRX 0 tI3gFkBfGzN9HYycM358IxLgo FWnOckjp5zlm0gypAm0LbF2XV DbkyUrlIkgZXK2t4EdHl52N18 s IHdpZHRoPSIxNSUiIHZhbGlnb o6fgT1zYc6+YLPmpDL3vLM1yR 9xMeTjKdA4ZDvqJ179EkUreJK v Fdtxb0hzr1zniEl6NnAyYYCuz yMfsTueNQN0z4BxJl94L3VmlW yzo0HvYka5tr05iCDhw3Y7tCT 9 G2FmYBCdusanqHOqvPdpZY3mL ENtaxfiBEMqwN7qLRDgR5t1Tt DqTwR6DTsmG8JtwnZ1ISJcbCY g PHhdFXZ3V40yo1Z8DTGmVTQfI PE4vBX6hA2wpQvzqywgbQWmeA lvleNzdWbiPGluRAmqL926UFY v iWzlQVLvpC1cFNVxrZIsuExpR X0aHREwkcrwAyXMK6YJLFaXAY BMRVNMSUUgQTwvdGQ+PHRkIHN 0 nSqbBCfgYBYggA7mFAQvQ1h1O dJxHgT0PGhtZ5AfJFFngxdwBu 54lV2rKhMlImH8JDokO7MhxmL 6 UPYvkDHxLRoxTPZ5J87si5O6I FAlJHJbVQA2mRR1wQ7jcSlxaa ogbGVmdDsgdmVydGljYWwtYWx p X993JFDreQriLlYhDmN9OtM1E FR2N3XfRwt0LGAztZckNU2mtU VqRQmdBz6pcHrvuUbhDY3lXXU p zabaPDUsvE4cZLVnoGLiyApdJ S2uDUDlfkggh566AfPxBUW2RU JudNTrR5VdsO4dLwGuMNTlYGO w O6YkiKOkNIinD354NJsuItL2X FMzufQuV1ZqZSMkmPldClP1t4 I2Se8mGNPBJMRruzjdrUZ+PHR k QLF3nSpcWRriOAVagQ8jFDHcY 9p0DlAqRxZ0ELteD9ZfUIVzao omCi75uW7fUlPeAeR9SUyhF4C v wjQ7FLKocSMzSDqeLZO8S35tg 1O8VNDvPCCvIWW1gHB2xQ1ovK lnbjogbGVmdDsgdmVydGljYWw t USymT874XNCbdCjwRbGwsCVeU TwvdGQ+KARpMUD2hOktIBmyXD PljM4uVTXxZ3t0QkHkYaY8ZWa u Z4AaXSMicgsoXc47cL5xOoLbR uO5OLbrC9BjvaL9DAVrhJNaPW wlCNO9P87dl3S2ZNZwQVVvQQI 7 aTW6sK7mtEcdunvkmNVdjHxjp cTnnIdvGQczSJadT214LZArhG ixBoZfODLuJF5tiWuiiEP+PC9 0 oe29E3KjKglvAbn7AMXuJEY0h KL7mG6cZULsPPkqg4U7hBY7Z4 UwceLwih9tj7wbQSZzARipC83 s nVNqm2C7LMPjgMI7PGDwoNnpF mNmbJ72Ggd+TWCzkBadn6FsSp fgn7pbn9dizTt5QfHqLWDxbfC s aEveIWP1s1CwCg84N83oOMxzM IOgYLLgWHFnYIPbkFrfnn0qhL 9wIi8+EVFxrKN6bTB3dF0nFjA l DqG8HAqlD229HiHemBSzEowwd 3xck1vpsJt6UzOzLAVqffLmdJ erTCR8y4XgBl96D3FapFjac9E w Zhh3gw28zAYlp0S1iNS6S0KcP QPqikrvrIFehVtbOH4jQCMfgf zkGVXqjK1iQCGyG4z0NwJiKfA 1 QDpiR1XspbK4EGAmnPUbZQZcp RTZsO9kkgyfx5zsffjdXkDjPJ QdBZi7CFn3HDQpyUqjXcKyXJR 0 AoI7ASC0rCIqlV7pfTmbsyojs G9wOyc+DTv0s4hwnOMsZM2jnH N4OB37HZ76uEMvs4I3cEC4I7E h HOMdzxictuayxLI8NHDuGERzy T97Ns7muJsjJl7dUWRrXBJ2BA QokKLoM8MgpB5lSnWvCMJhHHN w E6VmkATrKPtyZ230QEzqLzC6V OKnsaPzE0IkPEBrkSuxVcO5j9 B3Ew5MHX84YC73ZN18gUVba0N 5 xTE7X1OoGDNshdwpzqracQB9R HZvWDIuzJ91Hl4lhJmaPh8rLU TqHCT3ZGCkfEVkQ9ZuwS6pIrR j FOZqXVPhR1KqhSRaPViaO807G XyqKuZ3MXAwqfZfE6GcRVOdjW hkKxC5n8I0Ij1MIk86JM32EX8 8 rSSrv6K9vTK0J4JwKQZpmefmc snmrUZ3VILzPYKzwU35Qw0kaF mrXo8cJFHfBAO4EWSfyBYwE2L v mT0yZgChXWKfLIQyZ0OymKDgT PrdU203MMdbDaR5RJPcbmSuJ8 YaSHSelWcgEuQ2v4S1Td6DVKd l biq5C2FmQzwtoTC+UV68QNFgY B43sCXmlLFgg5fidUf9GdQnNH GhENS0aCeuRJzsh6QfVDTjE81 s bGFw (more content not included)... Normal [facility] Auto Diffon 03-23-2022 Basophils/100 WBC (Bld) 1.6 % Normal 0.0-2.0 [facility] Comment on above: Order Comment: Order Added by Discern Expert. Performed By: #### 2 727067, 8972221, 7063499, 03954153, 4790915, 7948086, [id number] ####[address] [address] Basophils/Leukocyt es Auto (Bld) [Pure # fraction] 0.1 E9/L Normal 0.0-0.2 [facility] Comment on above: Order Comment: Order Added by Discern Expert. Performed By: #### 2 403682, 1010205, 1315915, 59118197, 8076098, 3568470, 49057795 ####[address] [address] Eosinophils/100 WBC (Bld) 1.8 % Normal 0.0-8.0 [facility] Comment on above: Order Comment: Order Added by Discern Expert. Performed By: #### 2 551522, 8810671, 7480814, 73815094, 7843031, 9688060, 08797273 ####[address] [address] Eosinophils/Leukoc ytes Auto (Bld) [Pure # fraction] 0.1 E9/L Normal 0.0-0.5 [facility] Comment on above: Order Comment: Order Added by Discern Expert. Performed By: #### 2 854495, 4259587, 5563033, 39963519, 4857383, 2359857, 95699229 ####[address] [place] [address] Lymphocytes/100 WBC (Bld) 31.3 % Normal 14.0-50.0 [facility] Comment on above: Order Comment: Order Added by Discern Expert. Performed By: #### 2 382341, 5541539, 3030268, 58210766, 5889998, 6953952, 18279780 ####[address] [address] Lymphocytes/Leukoc ytes Auto (Bld) [Pure # fraction] 2.2 E9/L Normal 1.0-4.0 [facility] Comment on above: Order Comment: Order Added by Discern Expert. Performed By: #### 2 358683, 6941005, 2818607, 58167700, 0958717, 7011576, 92093883 ####[address] [place] [address] Monocytes/100 WBC (Bld) 10.1 % Normal 4.0-14.0 [facility] Comment on above: Order Comment: Order Added by Discern Expert. Performed By: #### 2 566928, 7648215, 3807174, 89277069, 2707110, 7231234, 75943482 ####[address] [address] Monocytes/Leukocyt es Auto (Bld) [Pure # fraction] 0.7 E9/L Normal 0.2-1.0 [facility] Comment on above: Order Comment: Order Added by Discern Expert. Performed By: #### 2 575188, 1467658, 1139810, 10631946, 2534652, 6544340, 24987172 ####[address] [address] Neutrophils/100 WBC (Bld) 55.2 % Normal 36.0-75.0 [facility] Comment on above: Order Comment: Order Added by Discern Expert. Performed By: #### 2 742827, 4015200, 8835113, 92675825, 1388670, 3222725, 28537242 ####[address] [place] [address] Neutrophils/Leukoc ytes Auto (Bld) [Pure # fraction] 3.8 E9/L Normal 2.0-7.5 [facility] Comment on above: Order Comment: Order Added by Daniel Expert. Performed By: #### 2 989341, 2513944, 9257770, 19541357, 1104907, 8699215, 93850995 ####[address] [place] [address] B hCG Qualon 03-23-2022 Beta hCG Ql Negative Normal [facility] Comment on above: Performed By: #### 2 850302, 0030412, 4005379, 26223549, 7966218, 6653052, 76290153 ####[facility] [address] [place] [address] BMPon 03-23-2022 Creatinine [Mass/Vol] 0.7 mg/dL Normal 0.5-1.3 [facility] Comment on above: Performed By: #### 2 787598, 1285854, 8869335, 18833236, 5853475, 7490916, 55650446 ####[facility] [address] [place] [address] Urea nitrogen [Mass/Vol] 5 mg/dL Normal 5-21 [facility] Comment on above: Performed By: #### 2 452046, 6683048, 1515414, 84727229, 8512355, 3030024, 25581710 ####[facility] [address] [place] [address] Urea nitrogen/Creatinin e [Mass ratio] 7 No Units Low 10-20 [facility] Comment on above: Performed By: #### 2 510042, 8755598, 5169863, 44984295, 3723253, 2057774, 76490982 ####[facility] [address] [place] [address] Anion gap [Moles/Vol] 17 mmol/L High 6-16 [facility] Comment on above: Performed By: #### 2 594701, 3764440, 0132780, 48812059, 5989736, 7858252, 73769485 ####[facility] [address] [place] [address] Calcium [Mass/Vol] 9.3 mg/dL Normal 8.9-11.1 [facility] Comment on above: Performed By: #### 2 992632, 0645093, 8064437, 95731037, 3571291, 7326477, 26307091 ####[facility] [address] [place] [address] Chloride [Moles/Vol] 101 mmol/L Normal 101-111 [facility] Comment on above: Performed By: #### 2 086834, 3427715, 8460283, 36944532, 0531696, 6248056, 53650776 ####[facility] [address] [place] [address] CO2 [Moles/Vol] 24 mmol/L Normal 21-[address] [facility] Comment on above: Performed By: #### 2 888665, 5196317, 6130321, 94665704, 0637665, 4424601, 69337423 ####[facility] [address] [place] [address] Glucose [Mass/Vol] 99 mg/dL Normal 55-199 [facility] Comment on above: Result Comment: If t his glucose result represents a fasting glucose, interpretation should refer to the following reference range: 55-99 mg/dL Performed By: #### 2 488993, 5811126, 8605122, 02170865, 6824093, 8620949, 34288548 ####[facility] [address] [place] [address] Potassium [Moles/Vol] 3.5 mmol/L Normal 3.5-5.3 [facility] Comment on above: Performed By: #### 2 558102, 8333478, 7699702, 21684484, 9165873, 0919484, 16671023 ####[facility] [address] [place] [address] Sodium [Moles/Vol] 138 mmol/L Normal 135-145 [facility] Comment on above: Performed By: #### 2 592639, 6141177, 6404399, 94033443, 2406702, 7258439, 01758835 ####[facility] [address] [place] [address] CBC w/ Auto Diffon 2 Erythrocyte distribution width (RBC) [Ratio] 13.0 % Normal 10.9-14.2 [facility] Comment on above: Performed By: #### 2 394650, 4097766, 7915779, 29135547, 1296071, 0949086, 34523059 ####[facility] [address] [place] [address] Hematocrit (Bld) [Volume fraction] 39.9 % Normal 34.0-46.0 [facility] Comment on above: Performed By: #### 2 813437, 2383422, 8712478, 99446765, 6985617, 3979518, 60091861 ####[address] [place] [address] Hemoglobin (Bld) [Mass/Vol] 13.5 g/dL Normal 12.0-16.0 [facility] Comment on above: Performed By: #### 2 726280, 6406143, 4915087, 65789617, 6458090, 7179641, 15620517 ####[address] [address] MCH (RBC) [Entitic mass] 33.8 pg Normal 27.0-34.0 [facility] Comment on above: Performed By: #### 2 145249, 2542555, 1286584, 19748728, 3567188, 2763389, 90510557 ####[address] [address] MCHC (RBC) [Mass/Vol] 34.0 g/dL Normal 31.4-36.0 [facility] Comment on above: Performed By: #### 2 [id number], 7629229, 7755319, 79340636, 0388004, 0209541, 38190223 ####[address] [address] MCV (RBC) [Entitic vol] 99.5 fL Normal 80.0-100.0 [facility] Comment on above: Performed By: #### 2 421752, 8449096, 4034090, 92779993, 1427210, 4452311, 50499396 ####[facility] [address] [place] [address] Platelet mean volume (Bld) [Entitic vol] 8.1 fL Normal 6.4-10.8 [facility] Comment on above: Performed By: #### 2 253287, 7858862, 5732173, 75512514, 7278301, 1954581, 26642815 ####[facility] [address] [place] [address] Platelets (Bld) [#/Vol] 365.0 E9/L Normal 150.0-500.0 [facility] Comment on above: Performed By: #### 2 308340, 7472379, 0566891, 00036367, 1583725, 4861463, 71110581 ####[facility] [address] [place] [address] RBC (Bld) [#/Vol] 4.0 E12/L Low 4.3-5.9 [facility] Comment on above: Performed By: #### 2 716905, 6505721, 4268214, 38323671, 9742179, 1916471, 85588528 ####[facility] [address] [place] [address] WBC corrected for nucl RBC Auto (Bld) [#/Vol] 6.9 E9/L Normal 4.0-11.0 [facility] Comment on above: Performed By: #### 2 765316, 1777498, 7696828, 68266095, 8640568, 0888345, 97487894 ####[facility] [address] [place] [address] CHEMISTRYOrdered By: SYSTEM SYSTEM on 03-23-2022 Albumin [...] 17 mmol/L High 6 - 16 mEq/L [facility] Remisol AST [Catalytic activity/Vol] 19 [iU]/d Normal 5 - 43 Int._Unit/L [facility] Bilirubin [Mass/Vol] 0.4 mg/dL Normal 0.0 - 1.1 mg/dL [facility] Bilirubin.direct [Mass/Vol] mg/dL Normal 0.1 - 0.4 mg/dL [facility] Bilirubin.indirect [Mass or moles/Vol] Unable to Calculate mg/dL Invalid Interpretation Code 0.1 - 0.9 mg/dL [facility] Calcium [Mass/Vol] 9.3 mg/dL Normal 8.9 - 11. 1 mg/dL [facility] Chloride [Moles/Vol] 101 mmol/L Normal 101 - 111 mmol/L [facility] CO2 [Moles/Vol] 24 mmol/L Normal 21 - 31 mmol/L [facility] Creatinine [Mass/Vol] 0.7 mg/dL Normal 0.5 - 1.3 mg/dL [facility] GFR/1.73 sq M.predicted among blacks MDRD (S/P/Bld) [Vol rate/Area] mL/min/1.73 m2 Normal >=59mL/min/1.7 3 m2 FT Chem S GFR/1.73 sq M.predicted among non-blacks MDRD (S/P/Bld) [Vol rate/Area] mL/min/1.73 m2 Normal >=59mL/min/1.7 3 m2 FT Chem S Globulin (S) [Mass/Vol] 2.8 g/dL Normal 1.4 - 4.0 gm/dL [facility] Glucose [Mass/Vol] 99 mg/dL Normal 55 - 199 mg/dL [facility] Remisol Lipase [Catalytic activity/Vol] 24 U/L Normal 13 - 58 unit/L [facility] Potassium [Moles/Vol] 3.5 mmol/L Normal 3.5 - 5.3 mmol/L [facility] Protein [Mass/Vol] 7.1 g/dL Normal 6.0 - 7.8 gm/dL [facility] Sodium [Moles/Vol] 138 mmol/L Normal 135 - 145 mmol/L [facility] Urea nitrogen [Mass/Vol] 5 mg/dL Normal 5 - 21 mg/dL [facility] Urea nitrogen/Creatinin e [Mass ratio] 7 mg/mg Low 10 - 20 [facility] Consent for Treatmenton Consent for Treatment [id number]:12 7 Normal [facility] Discharge Instructionson Discharge Instructions [id number]:12 7 Normal [facility] ED Clinical Summaryon 2021 ED Clinical Summary [address] [address] ED Clinical Summary Person Information Name: BERENICE SANTOS [facility] Age: 26 Years : 1995 Sex: Female Language: Iranian PCP: JUSTIN MAX DO Marital Status: Visit [...] 03/23/2022 15:45:11 03/23/2022 15:45:11 03/23/2022 15:45:11 ADDRESS: [address] [place] [address] [place] [id number] [facility] DOC NOTES: MEDICAL INFORMATION: Prescriptions Given: New Medications [facility], [address], [place] [id number], [phone] ondansetron (Zofran ODT 4 mg Tab-Dis) 1 [...] Lower Gastrointestinal Bleeding; Bloody Diarrhea; Rectal Bleeding, Vfnd-iz-Fayj Follow up: With: Address: When: Roma HAWKINS [address] [place], [place] [id number] Business (1) In 3 days 03/26/2022 Comments: Follow-up with Dr. Hawkins for further evaluation of your blood in your stool. With: Address: When: JUSTIN MAX [address] [place] [address] Business (1) In 3 days 03/26/2022 Comments: Follow-up with your primary care provider in 3 to 5 days. If symptoms worsen, do not improve, or new symptoms arise please report back to emergency department for further evaluation. DIAGNOSIS: Blood in stool Normal [facility] ED Note-Physicianon 03-23-20 ED Note-Physician Basic Information Time Seen: Alphonso MAURICE, Dmitry Levy 03/23/2022 13:52 Chief Complaint pt reports blood [...] Nausea/Vomiting, # 12 tab(s), Refills(s) 0, Pharmacy: [facility], 157, cm, 03/23/22 13:50:00 EST, Height/Length [...] Given NS1 (more content not included)... Normal [facility] Comment on above: Result Comment: Elec [...] Follow these instructions at home: ? Take szgs-uzz-zyuetoi and prescription medicines only as told by [...] 08/18/2016 Document Revised: 07/26/2019 Document Reviewed: 08/18/2016 [employer] Patient Education ? 2019 [employer] Rectal Bleeding Rectal bleeding is when blood comes out of the opening of the butt (anus). People with this kind of bleeding may notice bright red blood in their underwear or in the toilet after they poop (have a bowel movement). They may also (more content not included)... Normal [facility] ED Patient Summaryon 022 ED Patient Summary (Inserted Image. Laureen ble to display) [place] [id number] Patient Discharge Instructions Person Information Name: BERENICE SANTOS Age: 26 Years Arrival Date: 03/23/2022 13:42:10 Discharge Diagnosis: Blood in stool Primary Care Physician: JUSTIN MAX DO Provider Information Primary Provider: Rodney Johnson M.D. Advanced Drinking Water Technician:None The exam and treatment you received in the Emergency Department were for an urgent problem and are not intended as complete care. It is important that you follow up with a doctor, nurse practitioner, or physician?s programs assistant for ongoing care. If your symptoms become [...] Roma HAWKINS [address] [place], [place] [id number] Business (1) In 3 days 03/26/2022 Comments: Follow-up with Dr. Hawkins for further evaluation of your blood in your stool. With: Address: When: JUSTIN MAX [address] [place] [address] Business (1) In 3 days 03/26/2022 Comments: [...] Lower Gastrointestinal Bleeding; Bloody Diarrhea; Rectal Bleeding, Jdoh-xi-Ieov A MESSAGE TO ALL PATIENTS REGARDING OPIOIDS PRESCRIPTION OPIOIDS: WHAT YOU NEED TO KNOW Prescription opioids can be used to help relieve vgitwxys-ju-tblhje pain and are often prescribed following a [...] your comm (more content not included)... Normal [facility] HEMATOLOGYOrdered By: SYSTEM SYSTEM on 03-23-2022 [...] 3.8 E9/L Normal 2.0 - 7.5 E9/L [facility] HEMATOLOGYOrdered By: Lise Dumont on 03-23-2022 Erythrocyte distribution width (RBC) [Ratio] 13.0 % Normal 10.9 - 14.2 % [facility] Hematocrit (Bld) [Volume fraction] 39.9 % Normal 34.0 - 46.0 % [facility] HemeAutoSS Hemoglobin (Bld) [Mass/Vol] 13.5 g/dL Normal 12.0 - 16.0 gm/dL [facility]eAutoSS MCH (RBC) [Entitic mass] 33.8 pg [...] 6.9 E9/L Normal 4.0 - 11.0 E9/L [facility] Hep Func Panelon 03-23-2022 Bilirubin.indirect [Mass or moles/Vol] UTC Abnormal 0.1-0.9 [facility] Comment on above: Result Comment: Resu lt verified by Discern Rule. Performed result UT (Unable to Calculate) was sent as an Alpha code due the inability to calculate a valid numeric value. Performed By: #### 2 585558, 7192008, 2911850, 89657169, 0573807, 6935801, 71996881 ####[facility] [address] [place] [address] Albumin [Mass/Vol] 4.3 g/dL Normal 3.3-5.0 [facility] Comment on above: Performed By: #### 2 208317, 0226284, 7185526, 31084855, 4313487, 1182052, 97518917 ####[facility] [address] [place] [address] Albumin/Globulin (S) [Mass conc ratio] 1.5 Normal 1.1-2.2 [facility] Comment on above: Performed By: #### 2 554540, 7841546, 6940362, 42002790, 8120180, 1426436, 31948786 ####[facility] [address] [place] [address] ALP [Catalytic activity/Vol] 50 Int._Unit/L Normal 21-98 [facility] Comment on above: Performed By: #### 2 317404, 9227812, 9829672, 59326318, 7625718, 7248910, 01006067 ####[facility] [address] [place] [address] ALT No additional P-5'-P [Catalytic activity/Vol] 20 Int._Unit/L Normal 6-46 [facility] Comment on above: Performed By: #### 2 649076, 2045036, 1972794, 92089576, 5779109, 9047528, 97050153 ####[facility] [address] [place] [address] AST [Catalytic activity/Vol] 19 Int._Unit/L Normal 5-43 [facility] Comment on above: Performed By: #### 2 686185, 8364213, 7919441, 58008542, 2010002, 0269358, 36808617 ####[facility] [address] [place] [address] Bilirubin [Mass/Vol] 0.4 mg/dL Normal 0.0-1.1 [facility] Comment on above: Performed By: #### 2 901319, 8803579, 6818807, 89532379, 3941818, 4764661, 30581001 ####[facility] [address] [place] [address] Bilirubin.direct [Mass/Vol] mg/dL Normal 0.1-0.4 [facility] Comment on above: Performed By: #### 2 855429, 4063123, 8003865, 76959634, 4959298, 1993483, 51041887 ####[address] [address] Globulin (S) [Mass/Vol] 2.8 g/dL Normal 1.4-4.0 [facility] Comment on above: Performed By: #### 2 156304, 8786991, 6916872, 67949358, 2467526, 8248880, 22480848 ####[address] [address] Protein [Mass/Vol] 7.1 g/dL Normal 6.0-7.8 [facility] Comment on above: Performed By: #### 2 984854, 0351321, 2693615, 20908288, 6879948, 9064797, 44356524 ####[address] [address] Lipase Levelon 03-23-2022 Lipase [Catalytic activity/Vol] 24 U/L Normal 13-58 [facility] Comment on above: Performed By: #### 2 690503, 1471496, 3135786, 36757243, 0023569, 5262609, 97338116 ####[address] [place] [address] SEROLOGYOrdered By: Dana Garsia on 03-23-2022 Beta hCG Ql Negative (03/23/22 2:15 PM) Normal [facility] Man Sero UA With Cult Reflexon 2021 Bilirubin Ql (U) Negative Normal Negative [facility] Comment on above: Performed By: #### 1 [id number] ####[address] [address] Clarity (U) CLEAR Normal Clear [facility] Comment on above: Performed By: #### 1 1633466 ####[address] [address] Color (U) YELLOW Normal Yellow [facility] Comment on above: Performed By: #### 1 0932798 ####[address] [address] Epithelial cells.squamous LM.HPF (Urine sed) [#/Area] 0-2 Normal 0-2 [facility] Comment on above: Performed By: #### 1 3282701 ####[address] [address] Glucose Test strip (U) [Mass/Vol] Negative Normal Negative [facility] Comment on above: Performed By: #### 1 6368039 ####[address] [address] Hemoglobin Ql (U) Negative Normal Negative [facility] Comment on above: Performed By: #### 1 1194203 ####[address] [address] Ketones (U) [Mass/Vol] Negative Normal Negative [facility] Comment on above: Performed By: #### 1 4667475 ####[address] [address] Veneta.plasma/Lit hium.RBC (Bld) [Mass ratio] 0-3 Normal 0-3 [facility] Comment on above: Performed By: #### 1 7180099 ####[address] [place] [address] Nitrite Ql (U) Negative Normal Negative [facility] Comment on above: Performed By: #### 1 7493943 ####[address] [address] pH (U) 6.5 [pH] Invalid Interpretation Code 5.0-9.0 [facility] Comment on above: Performed By: #### 1 7703028 ####[address] [address] Protein (U) [Mass/Vol] Negative Normal Negative [facility] Comment on above: Performed By: #### 1 1924170 ####[address] [address] Specific gravity (U) [Rel density] 1.010 Invalid Interpretation Code 1.005-1.030 [facility] Comment on above: Performed By: #### 1 5030375 ####[address] [address] Type of Urine collection method Clean Catch Normal [facility] Comment on above: Performed By: #### 1 7254218 ####[address] [address] Urobilinogen Qn (U) 0.2 {Chiara'U}/dL Normal 0.0-1.0 [facility] Comment on above: Performed By: #### 1 6460883 ####[address] [address] WBC Auto Ql (U) Negative Normal Negative [facility] Comment on above: Performed By: #### 1 5542000 ####[address] [address] WBC LM.HPF (Urine sed) [#/Area] 0-5 Normal 0-5 [facility] Comment on above: Performed By: #### 1 5252159 ####[address] [address] URINALYSISOrdered By: Mychal Garsia on 03-23-2022 Bilirubin Ql (U) Negative (03/23/22 2:54 PM) Normal Negative [facility] UA Auto SS Clarity (U) Clear (03/23/22 [...] PM) Normal Negative [facility] UA Auto SS Veneta.plasma/Lit hium.RBC (Bld) [Mass ratio] 0-3 /HPF Normal [...] Desc Clean Catch (03/23/22 2:54 PM) Normal [facility] UA Auto SS Urobilinogen Qn (U) 0.3065280 {Chiara'U}/dL Normal 0.0 - 1.0 EU/dL [facility] UA Auto SS WBC Auto Ql (U) Negative (03/23/22 2:54 PM) Normal Negative [facility] UA Auto SS WBC LM.HPF (Urine sed) [#/Area] 0-5 /HPF Normal 0-5/HPF [facility] UA Auto SS eGFRon 03-23-2022 GFR/1.73 sq M.predicted among blacks MDRD (S/P/Bld) [Vol rate/Area] mL/min/{1.73_m2} Normal >=59 [facility] Comment on above: Order Comment: Order added by Discern Expert. Result Comment: eGFR is race adjusted. AA=. Performed By: #### 2 177788, 1072076, 5110126, 76693805, 7358638, 6873455, 27082010 ####[facility] [address] [place] [address] GFR/1.73 sq M.predicted among non-blacks MDRD (S/P/Bld) [Vol rate/Area] mL/min/{1.73_m2} Normal >=59 [facility] Comment on above: Order Comment: Order added by Discern Expert. Result Comment: International Project Manager juan pablo kidney disease could be indicated at eGFR's of less than 60 mL/min/1.73m2. Kidney failure is indicated at less than 15 mL/min/1.73m2. Performed By: #### 2 393785, 0020439, 7002295, 10673238, 5417550, 1077668, 21509696 ####[facility] [address] [place] [address] COVID + FLU Quick Testingon 01-06-2022 SARS-CoV-2 (COVID-19) RNA MAKEDA+probe Ql (Unsp spec) Negative [facility] Other COVID + FLU Quick Testing Negative [facility] Other COVID + FLU Quick Testing [facility] Other Lower GI hemoglobin IA Ql (S tl)on 06-21-2021 Occult Blood, Fecal - x1 [facility] Other Vital Signs Date Time Vital Sign Value Performing Clinician Facility 02-22-2023 14:30-0500 Diastolic blood pressure 74 mm[Hg] [facility] 02-22-2023 14:30-0500 Heart rate 74 /min [facility] 02-22-2023 14:30-0500 Respiratory rate 18 /min [facility] 02-22-2023 14:30-0500 SaO2% (BldA) [Mass fraction] 98 % [facility] 02-22-2023 14:30-0500 Systolic blood pressure 126 mm[Hg] [facility] 02-22-2023 12:10-0500 Body temperature 98.06 [degF] [facility] 02-22-2023 12:10-0500 Diastolic blood pressure 64 mm[Hg] [facility] 02-22-2023 12:10-0500 Heart rate 66 /min [facility] 02-22-2023 12:10-0500 Respiratory rate 18 /min [facility] 02-22-2023 12:10-0500 SaO2% (BldA) [Mass fraction] 99 % [facility] 02-22-2023 12:10-0500 Systolic blood pressure 105 mm[Hg] [facility] 12-12-2022 08:45-0400 Body height 157.48 cm Justin Mansoor Other [facility] Other 12-12-2022 08:45-0400 Body mass index (BMI) [Ratio] 32.74 kg/m2 Justin Mansoor Other [facility] 12-12-2022 08:45-0400 Body temperature 96.9 [degF] Justin Mansoor Other [facility] Other 12-12-2022 08:45-0400 Body weight 81.19 kg Justin Mansoor Other [facility] Other 12-12-2022 08:45-0400 Diastolic blood pressure 78 mm[Hg] Justin Mansoor Other [facility] Other 12-12-2022 08:45-0400 Respiratory rate 20 /min Justin Mansoor Other [facility] Other 12-12-2022 08:45-0400 SaO2% (BldA) [Mass fraction] 97 % Justin Mansoor Other [facility] Other 12-12-2022 08:45-0400 Systolic blood pressure 122 mm[Hg] Justin Mansoor Other [facility] Other 11-11-2022 11:15-0400 Body height 157.48 cm Justin Mansoor Other [facility] Other 11-11-2022 11:15-0400 Body mass index (BMI) [Ratio] 31.09 kg/m2 Justin Mansoor Other [facility] Other 11-11-2022 11:15-0400 Body temperature 96.9 [degF] Justin Mansoor Other [facility] Other 11-11-2022 11:15-0400 Body weight 77.11 kg Justin Mansoor Other [facility] Other 11-11-2022 11:15-0400 Diastolic blood pressure 78 mm[Hg] Justin Mansoor Other [facility] Other 11-11-2022 11:15-0400 Respiratory rate 20 /min Justin Mansoor Other [facility] Other 11-11-2022 11:15-0400 SaO2% (BldA) [Mass fraction] 97 % Justin Mansoor Other [facility] 11-11-2022 11:15-0400 Systolic blood pressure 114 mm[Hg] Justin Mansoor Other [facility] Other 11-09-2022 13:43-0400 Blood Pressure Location Olena Resendez [facility] 11-09-2022 13:43-0400 Body temperature 97.7 [degF] Olena Resendez [facility] 11-09-2022 13:43-0400 Diastolic blood pressure 69 mm[Hg] Olena Courtneymetz [facility] 11-09-2022 13:43-0400 Heart rate 111 /min Olena Resendez [facility] 11-09-2022 13:43-0400 Systolic blood pressure 104 mm[Hg] Olena Resendez [facility] 10-12-2022 11:45-0400 Body height 157.48 cm Justin Mansoor Other [facility] Other 10-12-2022 11:45-0400 Body mass index (BMI) [Ratio] 31.09 kg/m2 Justin Mansoor Other [facility] 10-12-2022 11:45-0400 Body temperature 97.4 [degF] Justin Mansoor Other [facility] Other 10-12-2022 11:45-0400 Body weight 77.11 kg Justin Mansoor Other [facility] Other 10-12-2022 11:45-0400 Diastolic blood pressure 68 mm[Hg] Justin Mansoor Other [facility] Other 10-12-2022 11:45-0400 Respiratory rate 20 /min Justin Mansoor Other [facility] Other 10-12-2022 11:45-0400 SaO2% (BldA) [Mass fraction] 98 % Justin Mansoor Other [facility] Other 10-12-2022 11:45-0400 Systolic blood pressure 112 mm[Hg] Justin Mansoor Other [facility] Other 09-26-2022 14:25-0400 Blood Pressure Location Brandon SALAM [facility] 09-26-2022 14:25-0400 Diastolic blood pressure 57 mm[Hg] Brandon SALAM [facility] 09-26-2022 14:25-0400 Heart rate 97 /min Brandon SALAM [facility] 09-26-2022 14:25-0400 Respiratory rate 16 /min Brandon SALAM [facility] 09-26-2022 14:25-0400 SaO2% (BldA) [Mass fraction] 97 % Brandon SALAM [facility] 09-26-2022 14:25-0400 Systolic blood pressure 107 mm[Hg] Brandon SALAM [facility] 09-26-2022 14:10-0400 Blood Pressure Location Brandon SALAM [facility] 09-26-2022 14:10-0400 Diastolic blood pressure 65 mm[Hg] Brandon SALAM [facility] 09-26-2022 14:10-0400 Heart rate 98 /min Brandon SALAM [facility] 09-26-2022 14:10-0400 Respiratory rate 20 /min Brandon SALAM [facility] 09-26-2022 14:10-0400 SaO2% (BldA) [Mass fraction] 97 % Brandon SALAM [facility] 09-26-2022 14:10-0400 Systolic blood pressure 105 mm[Hg] Brandon SALAM [facility] 09-26-2022 13:59-0400 Blood Pressure Location Brandon SALAM [facility] 09-26-2022 13:59-0400 Diastolic blood pressure 65 mm[Hg] Brandon SALAM [facility] 09-26-2022 13:59-0400 Heart rate 101 /min Brandon SALAM [facility] 09-26-2022 13:59-0400 Respiratory rate 17 /min Brandon SALAM [facility] 09-26-2022 13:59-0400 SaO2% (BldA) [Mass fraction] 98 % Brandon SALAM [facility] 09-26-2022 13:59-0400 Systolic blood pressure 99 mm[Hg] Brandon SALAM [facility] 09-26-2022 13:44-0400 Body temperature 97.52 [degF] Brandon SALAM [facility] 09-26-2022 13:27-0400 Respiratory rate 18 /min Brandon SALAM [facility] 09-26-2022 13:05-0400 Body temperature 96.8 [degF] Brandon SALAM [facility] 09-26-2022 13:05-0400 Respiratory rate 19 /min Brandon SALAM [facility] 09-14-2022 11:45-0400 Body height 157.48 cm Justin Mansoor Other [facility] Other 09-14-2022 11:45-0400 Body mass index (BMI) [Ratio] 30.18 kg/m2 Justin Mansoor Other [facility] Other 09-14-2022 11:45-0400 Body temperature 97.2 [degF] Justin Mansoor Other [facility] Other 09-14-2022 11:45-0400 Body weight 74.84 kg Justin Mansoor Other [facility] Other 09-14-2022 11:45-0400 Diastolic blood pressure 72 mm[Hg] Justin Mansoor Other [facility] Other 09-14-2022 11:45-0400 Respiratory rate 20 /min Justin Mansoor Other [facility] Other 09-14-2022 11:45-0400 SaO2% (BldA) [Mass fraction] 98 % Justin Mansoor Other [facility] Other 09-14-2022 11:45-0400 Systolic blood pressure 112 mm[Hg] Justin Mansoor Other [facility] Other 08-17-2022 12:15-0400 Body height 157.48 cm Justin Mansoor Other [facility] Other 08-17-2022 12:15-0400 Body mass index (BMI) [Ratio] 29.99 kg/m2 Justin Mansoor Other [facility] Other 08-17-2022 12:15-0400 Body temperature 97.2 [degF] Justin Mansoor Other [facility] Other 08-17-2022 12:15-0400 Body weight 74.39 kg Justin Mansoor Other [facility] Other 08-17-2022 12:15-0400 Diastolic blood pressure 82 mm[Hg] Justin Mansoor Other [facility] Other 08-17-2022 12:15-0400 Respiratory rate 20 /min Justin Mansoor Other [facility] Other 08-17-2022 12:15-0400 SaO2% (BldA) [Mass fraction] 97 % Justin Mansoor Other [facility] Other 08-17-2022 12:15-0400 Systolic blood pressure 28 mm[Hg] Justin Mansoor Other [facility] Other 08-05-2022 08:12-0400 Diastolic blood pressure 68 mm[Hg] Román Dominguez [facility] [place] 08-05-2022 08:12-0400 Heart rate 105 /min Román Dominguez [facility] [place] 08-05-2022 08:12-0400 SaO2% (BldA) [Mass fraction] 98 % Román Dominguez [facility] [place] 08-05-2022 08:12-0400 Systolic blood pressure 117 mm[Hg] Román Dominguez [facility] [place] 07-27-2022 09:30-0400 Blood Pressure Location Olena Resendez [facility] 07-27-2022 09:30-0400 Body temperature 97.34 [degF] Olena Resendez [facility] 07-27-2022 09:30-0400 Diastolic blood pressure 70 mm[Hg] Olena Resendez [facility] 07-27-2022 09:30-0400 Heart rate 102 /min Olena Resendez [facility] 07-27-2022 09:30-0400 Systolic blood pressure 107 mm[Hg] Olena Resendez [facility] 07-19-2022 12:30-0400 Body height 157.48 cm Justin Mansoor Other [facility] Other 07-19-2022 12:30-0400 Body mass index (BMI) [Ratio] 30.36 kg/m2 Justin Mansoor Other [facility] Other 07-19-2022 12:30-0400 Body temperature 97.4 [degF] Justin Mansoor Other [facility] Other 07-19-2022 12:30-0400 Body weight 75.3 kg Justin Mansoor Other [facility] Other 07-19-2022 12:30-0400 Diastolic blood pressure 68 mm[Hg] Justin Mansoor Other [facility] Other 07-19-2022 12:30-0400 Respiratory rate 20 /min Justin Mansoor Other [facility] Other 07-19-2022 12:30-0400 SaO2% (BldA) [Mass fraction] 97 % Justin Mansoor Other [facility] Other 07-19-2022 12:30-0400 Systolic blood pressure 116 mm[Hg] Justin Mansoor Other [facility] Other 06-06-2022 11:45-0500 Body height 157.48 cm Justin Mansoor Other [facility] Other 06-06-2022 11:45-0500 Body mass index (BMI) [Ratio] 31.46 kg/m2 Justin Mansoor Other [facility] Other 06-06-2022 11:45-0500 Body temperature 96.8 [degF] Justin Mansoor Other [facility] Other 06-06-2022 11:45-0500 Body weight 78.02 kg Justin Mansoor Other [facility] Other 06-06-2022 11:45-0500 Diastolic blood pressure 72 mm[Hg] Justin Mansoor Other [facility] Other 06-06-2022 11:45-0500 Respiratory rate 20 /min Justin Mansoor Other [facility] Other 06-06-2022 11:45-0500 SaO2% (BldA) [Mass fraction] 97 % Justin Mansoor Other [facility] Other 06-06-2022 11:45-0500 Systolic blood pressure 122 mm[Hg] Justin Mansoor Other [facility] Other 04-21-2022 11:30-0500 Body height 157.48 cm Justin Mansoor Other [facility] Other 04-21-2022 11:30-0500 Body mass index (BMI) [Ratio] 31.64 kg/m2 Justin Mansoor Other [facility] Other 04-21-2022 11:30-0500 Body temperature 97.5 [degF] Justin Mansoor Other [facility] Other 04-21-2022 11:30-0500 Body weight 78.47 kg Justin Mansoor Other [facility] Other 04-21-2022 11:30-0500 Diastolic blood pressure 68 mm[Hg] Justin Mansoor Other [facility] Other 04-21-2022 11:30-0500 Respiratory rate 20 /min Justin Mansoor Other [facility] Other 04-21-2022 11:30-0500 SaO2% (BldA) [Mass fraction] 99 % Justin Mansoor Other [facility] Other 04-21-2022 11:30-0500 Systolic blood pressure 110 mm[Hg] Justin Max Other [facility] Other 03-23-2022 15:00-0500 Diastolic blood pressure 66 mm[Hg] [facility] 03-23-2022 15:00-0500 Heart rate 75 /min [facility] 03-23-2022 15:00-0500 Mean blood pressure 81 mm[Hg] [facility] 03-23-2022 15:00-0500 Systolic blood pressure 112 mm[Hg] [facility] 03-23-2022 14:25-0500 Diastolic blood pressure 69 mm[Hg] [facility] 03-23-2022 14:25-0500 Heart rate 94 /min [facility] 03-23-2022 14:25-0500 Respiratory rate 14 /min [facility] 03-23-2022 14:25-0500 SaO2% (BldA) [Mass fraction] 100 % [facility] 03-23-2022 14:25-0500 Systolic blood pressure 84 mm[Hg] [facility] 03-23-2022 13:48-0500 Body temperature 98.06 [degF] [facility] 03-23-2022 13:48-0500 Diastolic blood pressure 84 mm[Hg] [facility] 03-23-2022 13:48-0500 Heart rate 100 /min [facility] 03-23-2022 13:48-0500 Respiratory rate 16 /min [facility] 03-23-2022 13:48-0500 SaO2% (BldA) [Mass fraction] 99 % [facility] 03-23-2022 13:48-0500 Systolic blood pressure 128 mm[Hg] Rodney Johnson [facility] 12-02-2021 11:00-0400 Body height 157.48 cm Justin Mansoor Other [facility] Other 12-02-2021 11:00-0400 Body mass index (BMI) [Ratio] 34.56 kg/m2 Justin Mansoor Other [facility] Other 12-02-2021 11:00-0400 Body temperature 97.6 [degF] Justin Mansoor Other [facility] Other 12-02-2021 11:00-0400 Body weight 85.73 kg Justin Mansoor Other [facility] Other 12-02-2021 11:00-0400 Diastolic blood pressure 82 mm[Hg] Justin Mansoor Other [facility] Other 12-02-2021 11:00-0400 Respiratory rate 20 /min Justin Mansoor Other [facility] Other 12-02-2021 11:00-0400 SaO2% (BldA) [Mass fraction] 98 % Justin Mansoor Other [facility] Other 12-02-2021 11:00-0400 Systolic blood pressure 122 mm[Hg] Justin Mansoor Other [facility] Other 11-05-2021 11:45-0400 Body height 157.48 cm Justin Mansoor Other [facility] Other 11-05-2021 11:45-0400 Body mass index (BMI) [Ratio] 35.3 kg/m2 Justin Mansoor Other [facility] Other 11-05-2021 11:45-0400 Body temperature 98.6 [degF] Justin Mansoor Other [facility] Other 11-05-2021 11:45-0400 Body weight 87.54 kg Justin Mansoor Other [facility] Other 11-05-2021 11:45-0400 Diastolic blood pressure 82 mm[Hg] Justin Mansoor Other [facility] Other 11-05-2021 11:45-0400 Respiratory rate 20 /min Justin Mansoor Other [facility] Other 11-05-2021 11:45-0400 SaO2% (BldA) [Mass fraction] 98 % Justin Mansoor Other [facility] Other 11-05-2021 11:45-0400 Systolic blood pressure 128 mm[Hg] Justin Mansoor Other [facility] Other 10-05-2021 13:45-0400 Body height 157.48 cm Justin Mansoor Other [facility] Other 10-05-2021 13:45-0400 Body mass index (BMI) [Ratio] 36.21 kg/m2 Justin Mansoor Other [facility] Other 10-05-2021 13:45-0400 Body temperature 98.3 [degF] Justin Mansoor Other [facility] Other 10-05-2021 13:45-0400 Body weight 89.81 kg Justin Mansoor Other [facility] Other 10-05-2021 13:45-0400 Diastolic blood pressure 62 mm[Hg] Justin Mansoor Other [facility] Other 10-05-2021 13:45-0400 Respiratory rate 20 /min Justin Mansoor Other [facility] Other 10-05-2021 13:45-0400 SaO2% (BldA) [Mass fraction] 98 % Justin Mansoor Other [facility] Other 10-05-2021 13:45-0400 Systolic blood pressure 96 mm[Hg] Justin Mansoor Other [facility] Other 08-12-2021 12:54-0400 Blood Pressure Location Brandon SALAM [facility] 08-12-2021 12:54-0400 Diastolic blood pressure 84 mm[Hg] Brandon SALAM [facility] 08-12-2021 12:54-0400 Heart rate 75 /min Brandon SALAM [facility] 08-12-2021 12:54-0400 Respiratory rate 16 /min Brandon SALAM [facility] 08-12-2021 12:54-0400 Systolic blood pressure 132 mm[Hg] Brandon SALAM [facility] 06-08-2021 12:15-0500 Body height 157.48 cm Justin Mansoor Other [facility] Other 06-08-2021 12:15-0500 Body mass index (BMI) [Ratio] 36.76 kg/m2 Justin Mansoor Other [facility] Other 06-08-2021 12:15-0500 Body temperature 98.9 [degF] Justin Mansoor Other [facility] Other 06-08-2021 12:15-0500 Body weight 91.17 kg Justin Mansoor Other [facility] Other 06-08-2021 12:15-0500 Diastolic blood pressure 82 mm[Hg] Justin Mansoor Other [facility] Other 06-08-2021 12:15-0500 Respiratory rate 20 /min Justin Mansoor Other [facility] Other 06-08-2021 12:15-0500 SaO2% (BldA) [Mass fraction] 97 % Justin Mansoor Other [facility] Other 06-08-2021 12:15-0500 Systolic blood pressure 122 mm[Hg] Justin Mansoor Other [facility] Other Encounters Encounter Date Encounter Type Care Provider Facility Start: 04-25-2023 End: 04-25-2023 ambulatory EVELYN CABRERA Not Available Start: 04-05-2023 End: 04-05-2023 ambulatory William Payne Other [facility] Other Start: 04-05-2023 Encounter by [employer] hui Payne [facility] Start: 04-04-2023 End: 04-04-2023 ambulatory JOCE ARIEL Not Available Start: 03-02-2023 End: 03-02-2023 ambulatory JOCE ARIEL Not Available Start: 02-22-2023 End: 02-22-2023 Emergency department patient visit Rodney Johnson Facility[place] Start: 02-22-2023 End: 02-22-2023 Emergency department patient visit Rodney Johnson [facility] Start: 02-01-2023 End: 02-01-2023 ambulatory Justin Mansoor Other [facility] Other Start: 02-01-2023 Telephone encounter Justin Mansoor [facility] Start: 01-11-2023 End: 01-11-2023 ambulatory William Payne Other [facility] Other Start: 01-11-2023 Encounter by [employer] hui Payne [facility] Start: 12-30-2022 End: 12-30-2022 ambulatory Justin Mansoor Other [facility] Other Start: 12-30-2022 Telephone encounter Justin Mansoor [facility] Start: 12-16-2022 End: 12-16-2022 ambulatory Justin Mansoor Other [facility] Other Start: 12-16-2022 Encounter by [employer] link Justin Mansoor [facility] Start: 12-15-2022 End: 12-15-2022 ambulatory Justin Mansoor Other [facility] Other Start: 12-15-2022 Encounter by [employer] Justin Mansoor [facility] Start: 12-12-2022 End: 12-12-2022 ambulatory Justin Mansoor Other [facility] Other Start: 12-12-2022 Office outpatient visit 15 minutes Justin Mansoor [facility] Start: 11-30-2022 End: 11-30-2022 ambulatory Justin Mansoor Other [facility] Other Start: 11-30-2022 Encounter by compute r link Justin Mansoor [facility] Start: 11-28-2022 End: 11-29-2022 ambulatory William Payne Facility:[facility] Start: 11-15-2022 End: 11-15-2022 ambulatory William Payne Other [facility] Other Start: 11-15-2022 Office outpatient visit 15 minutes William Payne [facility] [place] Start: 11-14-2022 End: 11-14-2022 ambulatory Justin Mansoor Other [facility] Other Start: 11-14-2022 Telephone encounter Justin Mansoor [facility] Start: 11-11-2022 End: 11-11-2022 ambulatory Justin Mansoor Other [facility] Other Start: 11-11-2022 Office outpatient visit 15 minutes Justin Mansoor [facility] Start: 11-11-2022 Telephone encounter Justin Mansoor [facility] Start: 11-09-2022 End: 11-10-2022 ambulatory Olena Resendez Facility:[facility] Start: 11-09-2022 End: 11-09-2022 Patient encounter procedure Olena Resendez [facility] Start: 11-03-2022 End: 11-03-2022 ambulatory William Payne Other [facility] Other Start: 11-03-2022 Encounter by [employer] link William Payne [facility] [place] Start: 11-01-2022 End: 11-01-2022 ambulatory Justin Mansoor Other [facility] Other Start: 11-01-2022 Telephone encounter Justin Mansoor [facility] Start: 10-31-2022 End: 10-31-2022 ambulatory Justin Mansoor Other [facility] Other Start: 10-31-2022 Encounter by [employer] link Justin Mansoor [facility] Start: 10-26-2022 End: 10-26-2022 ambulatory Justin Mansoor Other [facility] Other Start: 10-26-2022 Encounter by [employer] link Justin Mansoor [facility] Start: 10-21-2022 End: 10-21-2022 ambulatory Justin Mansoor Other [facility] Other Start: 10-21-2022 Encounter by [employer] Justin Mansoor [facility] Start: 10-12-2022 End: 10-12-2022 ambulatory Justin Mansoor Other [facility] Other Start: 10-12-2022 Office outpatient visit 15 minutes Justin Mansoor [facility] Start: 10-10-2022 End: 10-10-2022 ambulatory William Payne Other [facility] Other Start: 10-10-2022 Telephone encounter William Payne [facility] Start: 10-06-2022 End: 10-06-2022 ambulatory William Payne Facility:[facility] Start: 10-06-2022 End: 10-06-2022 ambulatory DO Justin M. Mansoor Work Phone: [facility] Work Phone: Start: 10-06-2022 End: 10-06-2022 Patient encounter procedure DO Justin Mansoor Work Phone: [facility] Start: 10-05-2022 End: 10-05-2022 ambulatory William Payne Facility:[facility] Start: 10-05-2022 End: 10-05-2022 ambulatory DO Justin M. Mansoor Work Phone: [facility] Work Phone: Start: 10-05-2022 End: 10-05-2022 Patient encounter procedure DO Justin Mansoor Work Phone: [facility] [address] Work Phone: Start: 09-30-2022 End: 09-30-2022 ambulatory Justin Mansoor Other [facility] Other Start: 09-30-2022 Encounter by juan r link Justin Mansoor [facility] Start: 09-29-2022 End: 09-29-2022 ambulatory William Payne Other [facility] Other Start: 09-29-2022 Telephone encounter William Payne [facility] Start: 09-28-2022 End: 09-28-2022 ambulatory Justin Mansoor Other [facility] Other Start: 09-28-2022 Telephone encounter Justin Mansoor [facility] Start: 09-26-2022 End: 09-27-2022 ambulatory Brandon SALAM Facility[facility] Start: 09-26-2022 End: 09-26-2022 Patient encounter procedure Brandon SALAM [facility] Start: 09-19-2022 End: 09-19-2022 ambulatory Justin Mansoor Other [facility] Other Start: 09-19-2022 Encounter by compute r link Justin Mansoor [facility] Start: 09-14-2022 End: 09-14-2022 ambulatory Justin Mansoor Other [facility] Other Start: 09-14-2022 Office outpatient visit 25 minutes Justin Mansoor [facility] Start: 09-14-2022 Telephone encounter Justin Mansoor [facility] Start: 08-24-2022 End: 08-24-2022 ambulatory Justin Mansoor Other [facility] Other Start: 08-24-2022 Encounter by compute r link Justin Mansoor [facility] Start: 08-24-2022 Telephone encounter Justin Mansoor [facility] Start: 08-23-2022 End: 08-23-2022 ambulatory Justin Mansoor Other [facility] Other Start: 08-23-2022 Encounter by compute r link Justin Mansoor [facility] Start: 08-17-2022 End: 08-17-2022 ambulatory Justin Mansoor Other [facility] Other Start: 08-17-2022 Office outpatient visit 15 minutes Justin Mansoor [facility] Start: 08-16-2022 End: 08-16-2022 ambulatory Justin Mansoor Other [facility] Other Start: 08-16-2022 Encounter by compute r link Justin Mansoor [facility] Start: 08-10-2022 End: 08-10-2022 ambulatory Justin Mansoor Other [facility] Other Start: 08-10-2022 Encounter by juan r link Justin Mansoor [facility] Start: 08-05-2022 End: 08-06-2022 ambulatory Román Dominguez Facility:[facility] Start: 08-05-2022 End: 08-05-2022 Patient encounter procedure Román Dominguez [facility] [place] Start: 08-02-2022 ambulatory Román Dominguez Facilit y:[facility] Start: 07-29-2022 End: 07-30-2022 ambulatory Olena Resendez Facility[facility] Start: 07-29-2022 End: 07-29-2022 Patient encounter procedure JUSTIN MAX [facility] Start: 07-27-2022 End: 07-28-2022 ambulatory Olena Resendez Facility:[facility] Start: 07-27-2022 End: 07-27-2022 Patient encounter procedure Olena Resendez [facility] Start: 07-22-2022 End: 07-22-2022 ambulatory Justin Mansoor Other [facility] Other Start: 07-22-2022 Telephone encounter Justin Mansoor [facility] Start: 07-19-2022 End: 07-19-2022 ambulatory Justin Mansoor Other [facility] Other Start: 07-19-2022 Office outpatient visit 25 minutes Justin Mansoor [facility] Start: 07-06-2022 End: 07-06-2022 ambulatory Justin Mansoor Other [facility] Other Start: 07-06-2022 Encounter by [employer] link Johana Duran [facility] Start: 07-06-2022 Telephone encounter Justin Mansoor [facility] Start: 07-02-2022 End: 07-03-2022 ambulatory JUSTIN M MANSOOR Facility[place] Start: 07-02-2022 End: 07-02-2022 Patient encounter procedure JUSTIN M MANSOOR [facility] Start: 06-27-2022 End: 06-27-2022 ambulatory Justin Mansoor Other [facility] Other Start: 06-27-2022 Telephone encounter Justin Mansoor [facility] Start: 06-24-2022 End: 06-24-2022 ambulatory Justin Mansoor Other [facility] Other Start: 06-24-2022 Encounter by [employer] link Justin Mansoor [facility] Start: 06-20-2022 End: 06-20-2022 ambulatory Justin Mansoor Other [facility] Other Start: 06-20-2022 Telephone encounter Justin Mansoor [facility] Start: 06-14-2022 Encounter by [employer] link Justin Mansoor [facility] Start: 06-14-2022 Telephone encounter Justin Mansoor [facility] Start: 06-14-2022 End: 06-14-2022 ambulatory Justin M. Mansoor [facility] Start: 06-13-2022 End: 06-13-2022 ambulatory Justin Mansoor Other [facility] Other Start: 06-13-2022 Telephone encounter Justin Mansoor [facility] Start: 06-06-2022 End: 06-06-2022 ambulatory Justin Mansoor Other [facility] Other Start: 06-06-2022 Office outpatient visit 25 minutes Justin Mansoor [facility] Start: 05-24-2022 End: 05-24-2022 ambulatory Justin Mansoor Other [facility] Other Start: 05-24-2022 Encounter by [employer] link Justin Mansoor [facility] Start: 05-16-2022 End: 05-16-2022 ambulatory Justin Mansoor Other [facility] Other Start: 05-16-2022 Telephone encounter Justin Mansoor [facility] Start: 05-09-2022 End: 05-09-2022 ambulatory Justin Mansoor Other [facility] Other Start: 05-09-2022 Encounter by [employer] link Justin Mansoor [facility] Start: 04-23-2022 End: 04-23-2022 ambulatory Justin Mansoor Other [facility] Other Start: 04-23-2022 Encounter by [employer] link Justin Mansoor [facility] Start: 04-21-2022 End: 04-21-2022 ambulatory Justin Mansoor Other [facility] Other Start: 04-21-2022 Encounter by [employer] link Justin Mansoor [facility] Start: 04-21-2022 Office outpatient visit 15 minutes Justin Mansoor [facility] Start: 04-03-2022 End: 04-03-2022 ambulatory Justin Mansoor Other [facility] Other Start: 04-03-2022 Encounter by [employer] link Justin Mansoor [facility] Start: 03-24-2022 End: 03-24-2022 ambulatory Justin Mansoor Other [facility] Other Start: 03-24-2022 Telephone encounter Justin Mansoor [facility] Start: 03-23-2022 End: 03-23-2022 Emergency department patient visit Rodney Johnson Facility[place] Start: 03-23-2022 End: 03-23-2022 Emergency department patient visit [facility] Nina azalealuli [facility] Start: 03-07-2022 End: 03-07-2022 ambulatory Justin Mansoor Other [facility] Other Start: 03-07-2022 Encounter by [employer] link Justin Mansoor [facility] Start: 02-10-2022 End: 02-10-2022 ambulatory Justin Mansoor Other [facility] Other Start: 02-10-2022 Encounter by [employer] Justin Mansoor [facility] Start: 01-24-2022 End: 01-24-2022 ambulatory Justin Mansoor Other [facility] Other Start: 01-24-2022 Nursing evaluation o f patient and report Justin Mansoor [facility] Start: 01-18-2022 End: 01-18-2022 ambulatory Justin Mansoor Other [facility] Other Start: 01-18-2022 Encounter by [employer] Justin Mansoor [facility] Start: 01-18-2022 Telephone encounter Justin Mansoor [facility] Start: 01-12-2022 End: 01-12-2022 ambulatory Justin Mansoor Other [facility] Other Start: 01-12-2022 Telephone encounter Justin Mansoor [facility] Start: 01-06-2022 End: 01-06-2022 ambulatory Justin Mansoor Other [facility] Other Start: 01-06-2022 Office outpatient visit 15 minutes Justin Mansoor [facility] Start: 01-06-2022 Telephone encounter Justin Mansoor [facility] Start: 12-14-2021 End: 12-14-2021 ambulatory Justin Mansoor Other [facility] Other Start: 12-14-2021 Encounter by compute r link Justin Mansoor [facility] Start: 12-02-2021 End: 12-02-2021 ambulatory Justin Mansoor Other [facility] Other Start: 12-02-2021 Office outpatient visit 15 minutes Justin Mansoor [facility] Start: 11-22-2021 End: 11-22-2021 ambulatory Justin Mansoor Other [facility] Other Start: 11-22-2021 Telephone encounter Justin Mansoor [facility] Start: 11-17-2021 End: 11-17-2021 ambulatory Justin Mansoor Other [facility] Other Start: 11-17-2021 Telephone encounter Justin Masnoor [facility] Start: 11-16-2021 End: 11-16-2021 ambulatory Justin Mansoor Other [facility] Other Start: 11-16-2021 Telephone encounter Justin Mansoor [facility] Start: 11-05-2021 End: 11-05-2021 ambulatory Justin Mansoor Other [facility] Other Start: 11-05-2021 Office outpatient visit 15 minutes Justin Mansoor [facility] Start: 10-22-2021 End: 10-22-2021 ambulatory Justin Mansoor Other [facility] Other Start: 10-22-2021 Encounter by compute r link Justin Mansoor [facility] Start: 10-05-2021 End: 10-05-2021 ambulatory Justin Mansoor Other [facility] Other Start: 10-05-2021 Office outpatient visit 15 minutes Justin Mansoor [facility] Start: 09-27-2021 End: 09-27-2021 ambulatory Justin Mansoor Other [facility] Other Start: 09-27-2021 Encounter by compute r link Justin Mansoor [facility] Start: 09-01-2021 End: 09-01-2021 ambulatory Justin Mansoor Other [facility] Other Start: 09-01-2021 Encounter by compute r link Justin Mansoor [facility] Start: 08-23-2021 End: 08-23-2021 ambulatory Johana Easterwood Other [facility] Other Start: 08-23-2021 Telephone encounter Johana Easterwood [facility] Start: 08-18-2021 End: 08-18-2021 ambulatory Justin Mansoor Other [facility] Other Start: 08-18-2021 Telephone encounter Justin Mansoor [facility] Start: 08-12-2021 End: 11-22-2021 Recurring Roma HAWKINS [facility] Start: 08-12-2021 End: 08-12-2021 Patient encounter procedure Brandon SALAM [facility] Start: 08-05-2021 End: 08-05-2021 ambulatory Justin Mansoor Other [facility] Other Start: 08-05-2021 Encounter by [employer] link Jutsin Mansoor [facility] Start: 06-21-2021 End: 06-21-2021 ambulatory Justin Mansoor Other [facility] Other Start: 06-21-2021 Telephone encounter Justin Mansoor [facility] Start: 06-08-2021 End: 06-08-2021 ambulatory Justin Mansoor Other [facility] Other Start: 06-08-2021 Office outpatient visit 15 minutes Justin Mansoor [facility] Start: 02-26-2021 End: 02-26-2021 ambulatory Justin Mansoor Other [facility] Other Start: 02-26-2021 Nursing evaluation o f patient and report Justin Mansoor [facility] Start: 02-26-2021 Telephone encounter Justin Mansoor [facility] Procedures Date Procedure Procedure Detail Performing Clinician Start: 10-06-2022 Radiography of thoracic spine DO Justin Ru ggles Work Phone: Start: 10-05-2022 Plain X-ray of right shoulder DO Justin Ru ggles Work Phone: Start: 10-05-2022 X-ray of cervical spine DO Justin Mansoor Work Phone: Start: 09-26-2022 Colonoscopy Roma BARRIGAAM Start: 09-26-2022 Esophagogastroduodenoscopy and closure of duodenal fistula Brandon SALAM None (qualifier value) Brandon SALAM Immunizations Immunization Date Immunization Notes Care Provider [facility] 01-24-2022 influenza virus vaccine, unspecified formulation Olena Mal [facility] 01-24-2022 influenza, injectable, quadrivalent, contains preservative Justin Mansoor Other [facility] Other 02-26-2021 influenza virus vaccine, unspecified formulation [facility] 02-26-2021 influenza, injectable, quadrivalent, contains preservative Justin Mansoor Other [facility] Other 02-15-2021 influenza virus vaccine, unspecified formulation Roma HAWKINS [facility] 02-11-2020 influenza virus vaccine, unspecified formulation [facility] 02-11-2020 influenza, injectable, quadrivalent, contains preservative Justin Mansoor Other [facility] Other 01-22-2019 influenza, injectable, quadrivalent, contains preservative Justin Mansoor Other [facility] Other 01-22-2019 influenza virus vaccine, unspecified formulation [facility] 12-08-2011 meningococcal ACWY vaccine, unspecified formulation Olena Mal [facility] 12-08-2011 tetanus toxoid, reduced diphtheria toxoid, and acellular pertussis vaccine, adsorbed Olena Mal [facility] 09-08-1998 DTaP, unspecified formulation Olena Mal [facility] 09-08-1998 measles, mumps and rubella virus vaccine Olena Mal [facility] 08-17-1994 measles, mumps and rubella virus vaccine Olena Mal [facility] 1993 hepatitis B vaccine, pediatric or pediatric/adolescen t dosage Olena Mal [facility] 1993 Hib, unspecified formulation [facility] [facility] H[facility], unspecified formulation [facility] 1993 hepatitis B vaccine, pediatric or pediatric/adolescen t dosage [facility] 1993 Hib, unspecified formulation [facility] 1993 hepatitis B vaccine, pediatric or pediatric/adolescen t dosage [facility] NEGATED: Highlighted row has not occurred! 3 SARS-CoV-2 mRNA (tostevenameran 5y-11y) vaccine Román Dominguez [facility] [place] NEGATED: Highlighted row has not occurred! 9 influenza, injectable, quadrivalent, contains preservative Patient Objection Justin Max Other [facility] Other NEGATED: Highlighted row has not occurred! 9 influenza, injectable, quadrivalent, contains preservative Patient Objection Justin Mansoor Other [facility] Other NEGATED: Highlighted row has not occurred! 8 influenza, injectable, quadrivalent, contains preservative Patient Objection Justin Mansoor Other [facility] Other NEGATED: Highlighted row has not occurred! 8 influenza, injectable, quadrivalent, contains preservative Patient Objection Justin Mansoor Other [facility] Other NEGATED: Highlighted row has not occurred! 8 influenza, injectable, quadrivalent, contains preservative Patient Objection Justin Mansoor Other [facility] Other Payers Date Payer Category Payer Private Health Insurance [id number] 2022 Unknown [id number] 2022 Self-pay [id number] 2022 [facility] [id number] 2022 Unknown [id number] 1993 Unknown [id number] 2.16.8 40.1.156556.3.579.2.727 1993 Unknown [id number] 2.16.8 40.1.761171.3.579.2.727 1993 Unknown [id number] 2.16.8 40.1.440309.3.579.2.727 1993 Unknown [id number] 2.16.8 40.1.548409.3.579.2.727 1993 Unknown [id number] 2.16.8 40.1.989475.3.579.2.727 1993 Unknown [id number] 2.16.8 40.1.978066.3.579.2.727 1993 Unknown [id number] 2.16.8 40.1.338346.3.579.2.727 1993 Unknown [id number] 2.16.8 40.1.140394.3.579.2.727 1993 Unknown [id number] 2.16.8 40.1.594291.3.579.2.727 1993 Unknown [id number] 2.16.8 40.1.752305.3.579.2.727 1993 Unknown [id number] 2.16.84 0.1.673596.3.579.2.1259 1993 Unknown [id number] 2.16.840 .1.231526.3.579.2.1259 1993 Unknown [id number] 2.16.840 .1.303395.3.579.2.1259 Medicaid [employer] [id number] Unknown [facility] [id number] Unknown [id number] 2.16.8 40.1.024193.3.579.2.531 Unknown [id number] 2.16.8 40.1.668355.3.579.2.531 Unknown [id number] 2.16.8 40.1.021112.3.579.2.531 Unknown [id number] 2.16.8 40.1.504792.3.579.2.531 Social History Date Type Detail Facility Start: 08-12-2021 End: 11-09-2022 Tobacco smoking status Heavy tobacco smoker (finding) [facility] [employer] Other Comment on above: Quit 2 yrs ago Tobacco smoking status Never [facility] Comment on above: Quit 2 yrs ago Sex Assigned At Female [facility] [employer] Other Start: 1995 Sex Assigned At Female F [facility] Functional Status Date Assessment Result Facility 02-22-2023 Functional Status N/A [facility] 11-09-2022 Functional Status N/A [facility] 09-26-2022 Functional Status N/A [facility] 08-05-2022 Functional Status N/A [facility] [place] 07-27-2022 Functional Status N/A [facility] 03-23-2022 Functional Status N/A [facility] Clinical Notes 05-18-2020 to 04-05-2023 Note Date & Type Note Facility 04-05-2023 Evaluation note Encounter Date Diagnosis Assessment Notes Mar, Thoracic back pain (ICD-10 - M54.6) [facility] [employer] Other 11-08-2023 Evaluation + Plan noteExtracted from: Title:ED Note Author:Alphonso MAURICE, Dmitry Sharma te:02/22/23 Vomiting during (O 21.9: Vomiting of , unspecified) Orders: metoclopramide, 5 mg = 1 tab(s), Oral, q6hr, to use if zofran fails., X 7 day(s), # 20 tab(s), Refills(s) 0, Pharmacy: [facility], 158, cm, 02/22/23 12:17:00 EST, Height/Length Dosing, 87.3, kg, 02/22/23 12:17:00 EST, Weight Dosing ondansetron, 4 mg = 1 tab(s), Oral, q8hr, PRN Nausea/Vomiting, # 12 tab(s), Refills(s) 0, Pharmacy: [facility], 158, cm, 02/22/23 12:17:00 EST, Height/Length [...] Diff 07/27/22 * Comprehensive Metabolic Panel 07/27/22 [facility]11-08-2023 Hospital Discharge instructions Follow Up Care 02/22/2023 11:55:55 With:Joce DAVIDSON Address: [address] , [place] [address]- Business (1) When:02/25/2023 14:21:57 With:JUSTIN MAX Address: [facility] [address] [address]- Business (1) When:02/25/2023 14:21:48 Comments:Follow-up with your primary care provider in 3 to 5 days. If symptoms worsen, do not improve, or new symptoms arise please report back to emergency department for further evaluation. [facility]09-27-2023 Evaluation note* Encounter Date Diagnosis Assessment Notes Treatment Notes Treatment Clinical Notes Dec, Thoracic back pain (ICD-10 - M54.6) [facility] Other 09-15-2023 Evaluation note* Encounter Date Diagnosis Assessment Notes Treatment Notes Treatment Clinical Notes Dec, Migraine without aura and without status migrainosus, not intractable (ICD-10 - G43.009) [facility] Other 08-31-2023 Evaluation note* Encounter Date Diagnosis Assessment Notes Treatment Notes Treatment Clinical Notes Nov, Migraine without aura and without status migrainosus, not intractable (ICD-10 - G43.009) [facility] Other 08-28-2023 Evaluation note* Encounter Date Diagnosis [...] Z3A.09) Obviously continue to follow-up with OB. [facility] Other 08-01-2023 Evaluation note* Encounter Date Diagnosis [...] like her to discuss this with her BELLY DANCER prior to doing so. Patient was instructed to call should her BELLY DANCER be in aggrement with proceeding with trigger point injections. Additionally she will clarify what pain treatment measures including OTC treatments are acceptable to use during her . Anatomy of spine discussed in detail with patient in regard to patients condition. Nov, Muscle pain, lumbar (ICD-10 - M79.18) Nov, Chronic pain (ICD-10 - G89.29) Nov, Other Above note writ ten by Sabrina Cao LPN, Crime Scene Evidence Technician. Edited and approved by Dr. William Payne MD. [facility] Other 07-28-2023 Evaluation note* Encounter Date Diagnosis Assessment Notes Treatment Notes Treatment Clinical Notes Oct, Obesity (BMI 30-39.9) (ICD-10 - E66.9) Discussed with patient that we certainly could do further medication, but patient again declines today. I think this is quite reasonable. Call with any concerns or change. [facility] Other 07-26-2023 Hospital Discharge instructions Patient Education [...] help quitting, ask your health careprovider. Take xuyc-hlr-soaaihy and prescription medicines only as told by your health care provider. ?Do not use pwug-bej-nrgxqfx medicines in place of prescription medicines unless [...] help quitting, ask your health careprovider. Take jzko-hcv-axeqxtz and prescription medicines only as told by your health care provider. Do not use rvjp-xco-xwysdcg medicines in place of prescription medicines unless your health care provider approves. Limit your alcohol and caffeine intake. Keep all follow-up visits. This is important. This information is not intended to replace advice given to you by your health care provider. Make sure you discuss any questions you have with your health care provider. Document Revised: 11/12/2021 Document Reviewed: 11/12/2021 [employer] Patient Education 2022 [employer]. Follow Up Care 10/11/2022 13:11:28 With:Olena Resendez CNP Address: When:1 month [facility] 07-17-2023 Evaluation note* Encounter Date Diagnosis Assessment Notes Treatment Notes Treatment Clinical Notes Oct, Arthritis of lumbosacral spine (ICD-10 - M47.817) [facility] Other 07-07-2023 Evaluation note* Encounter Date Diagnosis Assessment Notes Treatment Notes Treatment Clinical Notes Oct, Arthritis of lumbosacral spine (ICD-10 - M47.817) [facility] Other 06-28-2023 Evaluation note* Encounter Date Diagnosis [...] pain management should she require something more. [facility] Other 06-15-2023 Evaluation note* Encounter Date Diagnosis Assessment Notes Treatment Notes Treatment Clinical Notes Sep, Right shoulder pain (ICD-10 - M25.511) Sep, Cervical pain (ICD-10 - M54.2) [facility] Other 06-14-2023 Note [id number]:127[facility] 09-26-2022 Hospital Discharge instructions Patient Education 09/26/2022 14:06:02 [facility] NSAIDS-Nonsteroidal Anti-Inflammatory Medications (CUSTOM) Nonsteroidal Anti-Inflammatory Medications [...] pain neck pain Some NSAIDs are available iubn-zfp-zpzcdxu, without the need for a prescription. However, [...] than your doctor has prescribed. Follow the cqte-jxs-mnmexnx labels and do not exceed the recommended [...] on caring for yourself after you leave thespital. Your doctor may also give you specific [...] help quitting, ask your health careprovider. Take nvzk-mgb-zdpnuco and prescription medicines only as told by your health care provider. ?Do not use dxup-cdy-srryaxn medicines in place of prescription medicines unless [...] help quitting, ask your health careprovider. Take jmhb-xod-kjltzrx and prescription medicines only as told by your health care provider. Do not use pmeu-kdt-dsnixrh medicines in place of prescription medicines unless your health care provider approves. Limit your alcohol and caffeine intake. Keep all follow-up visits. This is important. This information is not intended to replace advice given to you by your health care provider. Make sure you discuss any questions you have with your health care provider. Document Revised: 11/12/2021 Document Reviewed: 11/12/2021 [employer] Patient Education 2022 [employer]. 09/26/2022 14:06:02 Upper Endoscopy, Adult, Care After [...] what activities are safe for you. Take bxpr-zha-dxnkdyt and prescription medicines only as told by [...] provider. Document Revised: 02/07/2020 Document Reviewed: 09/03/2018 [employer] Patient Education 2022 [employer]. Follow Up Care 07/27/2022 10:18:04 With:Roma HAWKINS Address: [address] [place] [address]. [address] [place] [address] [facility] (1) When: Unknown Comments:Dr Hawkins's office will call you to schedule follow up appointment [facility]06-12-2023 Evaluation + Plan noteExtracted from: Title:ANES Pre-operative Note - Endo Author:Sam Sandoval Jr., DO Date:09/26/22 Plan [place] [employer]esthesi[employer] (ASA) physical status classification: Class II. Anesthetic Preoperative Plan: Anesthesia General, and -TIVA. Future Scheduled Tests Laboratory* CBC w/ Auto Diff 07/27/22 * Comprehensive Metabolic Panel 07/27/22 [facility]05-31-2023 Evaluation note* Encounter Date Diagnosis Assessment Notes [...] August, BMI 30.0-30.9,adult (ICD-10 - Z68.30) [facility] [place] -eRx sent. We will proceed with the third month and see patient back in 4 weeks for recheck. [facility] Other 05-31-2023 Evaluation note* Encounter Date Diagnosis [...] August, BMI 30.0-30.9,adult (ICD-10 - Z68.30) DDM [place] -eRx sent. We will proceed with the third month and see patient back in 4 weeks for recheck. August, Obesity (BMI 30-39.9) (ICD-10 - E66.9) [facility] Other 05-10-2023 Evaluation note* Encounter Date Diagnosis Assessment Notes Treatment Notes Treatment Clinical Notes August, Degenerative disc disease, lumbar (ICD-10 - M51.36) [facility] Other 05-09-2023 Evaluation note* Encounter Date Diagnosis Assessment Notes Treatment Notes Treatment Clinical Notes August, Degenerative disc disease, lumbar (ICD-10 - M51.36) [facility] Other 05-03-2023 Evaluation note* Encounter Date Diagnosis Assessment Notes Treatment Notes Treatment Clinical Notes August, BMI 29.0-29.9,adult (ICD-10 - Z68.29) KIMBERLEE Villarreal E Rx sent. We will recheck again in 1 month. August, Degenerative disc disease, lumbar (ICD-10 - M51.36) KIMBERLEE clarkcitlali -discussed with patient that certainly we will hold the Mobic as it made things worse. We will try 1 final anti-inflammatory . I am interested to see what pain management suggests. [facility] Other 05-02-2023 Evaluation note* Encounter Date Diagnosis Assessment Notes Treatment Notes Treatment Clinical Notes August, Degenerative disc disease, lumbar (ICD-10 - M51.36) [facility] Other 04-26-2023 Evaluation note* Encounter Date Diagnosis Assessment Notes Treatment Notes Treatment Clinical Notes Jul, Degenerative disc disease, lumbar (ICD-10 - M51.36) [facility] Other 04-21-2023 Hospital Discharge instructions Patient Education [...] ?Hypothyroidism. ?Polycystic ovarian syndrome (PCOS). ?Binge-eating disorder. ?Ponce syndrome. Taking certain medicines, such as steroids, [...] food choices, such as grocery stores and [employer] markets. What are the signs or symptoms? [...] and how much exercise you get. Take ijuq-joh-rbdkknd and prescription medicines only as told by [...] provider. Document Revised: 11/09/2021 Document Reviewed: 11/09/2021 [employer] Patient Education 2022 [employer]. [facility] [place] 04-12-2023 Hospital Discharge instructions Patient Education 07/27/2022 [...] observation. Follow these instructions at home: Take yyfw-chg-cuhttmx and prescription medicines only as told by [...] on the cause of the bleeding. Take chxr-xby-fflqwmx and prescription medicines only as told by [...] 03/31/2001 Document Revised: 11/14/2018 Document Reviewed: 11/14/2018 [employer]Drive Patient Education [employer] Follow Up Care 07/11/2022 11:35:32 With:Olena Resendez CNP Address: When:1 to 2 weeks Comments:Following EGD/Colonoscopy. [facility] 04-04-2023 Evaluation note* Encounter Date Diagnosis Assessment Notes Treatment Notes Treatment Clinical Notes Jul, BMI 30.0-30.9,adult (ICD-10 - Z68.30) DDM [place] -E Rx sent. No other change today. [...] Certain to continue to follow-up with psychiatry. [facility] Other 03-22-2023 Evaluation note* Encounter Date Diagnosis Assessment Notes Treatment Notes Treatment Clinical Notes Jun, Degenerative disc disease, lumbar (ICD-10 - M51.36) [facility] Other 03-13-2023 Evaluation note* Encounter Date Diagnosis Assessment Notes Treatment Notes Treatment Clinical Notes Jun, Low back pain, unspecified back pain laterality, unspecified chronicity, unspecified whether sciatica present (ICD-10 - M54.50) [facility] Other 03-10-2023 Evaluation note* Encounter Date Diagnosis Assessment Notes Treatment Notes Treatment Clinical Notes Jun, Degenerative disc disease, lumbar (ICD-10 - M51.36) [facility] Other 02-28-2023 Evaluation note* Encounter Date Diagnosis Assessment Notes Treatment Notes Treatment Clinical Notes May, Degenerative disc disease, lumbar (ICD-10 - M51.36) [facility] Other 02-27-2023 Evaluation note* Encounter Date Diagnosis Assessment Notes Treatment Notes Treatment Clinical Notes May, Migraine without aura and without status migrainosus, not intractable (ICD-10 - G43.009) [facility] Other 02-20-2023 Evaluation note* Encounter Date Diagnosis [...] deficit (ICD-10 - R41.840) Pt to see [id number] - she is to make appt online... [facility] Other 02-07-2023 Evaluation note* Encounter Date Diagnosis Assessment Notes Treatment Notes Treatment Clinical Notes May, Degenerative disc disease, lumbar (ICD-10 - M51.36) May, Seasonal allergies (ICD-10 - J30.2) [facility] Other 01-30-2023 Evaluation note* Encounter Date Diagnosis Assessment Notes Treatment Notes Treatment Clinical Notes Apr, Anxiety (ICD-10 - F41.9) [facility] Other 01-23-2023 Evaluation note* Encounter Date Diagnosis Assessment Notes Treatment Notes Treatment Clinical Notes Apr, Degenerative disc disease, lumbar (ICD-10 - M51.36) [facility] Other 01-07-2023 Evaluation note* Encounter Date Diagnosis Assessment Notes Treatment Notes Treatment Clinical Notes Apr, Migraine without aura and without status migrainosus, not intractable (ICD-10 - G43.009) [facility] Other 01-05-2023 Evaluation note* Encounter Date Diagnosis Assessment Notes Treatment Notes Treatment Clinical Notes Apr, Degenerative disc disease, lumbar (ICD-10 - M51.36) DDM [place] -E Rx sent. Leg he discussion with patient today that we need to pursue new imaging as well as physical therapy. I think she would benefit from having an MRI, but we will need to pursue conservative therapy first. She voices agreement and understanding. [facility] Other 01-05-2023 Evaluation note* Encounter Date Diagnosis Assessment Notes Treatment Notes Treatment Clinical Notes Apr, Degenerative disc disease, lumbar (ICD-10 - M51.36) [facility] Other 12-18-2022 Evaluation note* Encounter Date Diagnosis Assessment Notes Treatment Notes Treatment Clinical Notes Mar, Degenerative disc disease, lumbar (ICD-10 - M51.36) [facility] Other 12-07-2022 Hospital Discharge instructions Patient Education [...] treatment. Follow these instructions at home: Take kngm-yta-jbrazxi and prescription medicines only as told by [...] 08/18/2016 Document Revised: 07/26/2019 Document Reviewed: 08/18/2016 FreeDrive Patient Education 2020 [employer]. 03/23/2022 15:45:11 Bloody Diarrhea Bloody Diarrhea Bloody [...] oral rehydration solution (ORS). This is an bdhy-ges-ajasdki medicine that helps return your body to [...] drinks, and soda. ?Avoid alcohol. Eat bland, inpl-ke-ggmhgc foods in small amounts as you are able. These foods include bananas, applesauce, rice, lean meats, toast, and crackers. Avoid spicy or fatty foods. Medicines Take fukf-ycc-aishfjl and prescription medicines only as told by [...] water are not available, use a hand structural designer. Others in the household should wash their [...] 04/03/2006 Document Revised: 09/13/2018 Document Reviewed: 09/13/2018 FreeDrive Patient Education 2020 [employer]. 03/23/2022 15:45:11 Rectal Bleeding, Pmaf-tb-Xknr Rectal Bleeding Rectal bleeding is when blood [...] 12/14/2011 Document Revised: 03/16/2018 Document Reviewed: 05/29/2016 FreeDrive Patient Education 2020 [employer]. Follow Up Care 03/23/2022 13:43:37 With:Roam HAWKINS Address: [address] [place] [address] Business (1) When:03/26/2022 15:23:44 Comments:Follow-up with Dr. Hawkins for further evaluation of your blood in your stool. With:JUSTIN MAX Address: [address] [place] [address] Business (1) When:03/26/2022 15:23:32 Comments:Follow-up with your primary care provider in 3 to 5 days. If symptoms worsen, do not improve, or new symptoms arise please report back to emergency department for further evaluation. [facility]12-07-2022 Evaluation + Plan noteExtracted from: Title:ED Note Author:Dmitry Werner PA-C te:03/23/22 Blood in stool (K92.1: Torie de la cruz) Orders: ondansetron, 4 mg = 1 tab(s), Oral, q8hr, PRN Nausea/Vomiting, # 12 tab(s), Refills(s) 0, Pharmacy: [facility], 157, cm, 03/23/22 13:50:00 EST, Height/Length [...] Metabolic Panel 08/12/21 * C-Reactive Protein 08/12/21 [facility]11-21-2022 Evaluation note* Encounter Date Diagnosis Assessment Notes Treatment Notes Treatment Clinical Notes Feb, Degenerative disc disease, lumbar (ICD-10 - M51.36) [facility] 10-27-2022 Evaluation note* Encounter Date Diagnosis Assessment Notes Treatment Notes Treatment Clinical Notes Jan, Degenerative disc disease, lumbar (ICD-10 - M51.36) Jan, Anxiety (ICD-10 - F41.9) Jan, Seasonal allergies (ICD-10 - J30.2) [facility] Other 10-10-2022 Evaluation note* Encounter Date Diagnosis Assessment Notes Treatment Notes Treatment Clinical Notes Jan, Flu vaccine need (ICD-10 - Z23) [facility] Other 10-04-2022 Evaluation note* Encounter Date Diagnosis Assessment Notes Treatment Notes Treatment Clinical Notes Jan, Degenerative disc disease, lumbar (ICD-10 - M51.36) [facility] 09-22-2022 Evaluation note* Encounter Date Diagnosis Assessment Notes Treatment Notes Treatment Clinical Notes Dec, Viral upper respiratory tract infection (ICD-10 - J06.9) Discussed with patient that everything was normal but her symptoms certainly are significant. Therefore we will treat and patient will call with update. Dec, Degenerative disc disease, lumbar (ICD-10 - M51.36) [facility] Other 08-30-2022 Evaluation note* Encounter Date Diagnosis Assessment Notes Treatment Notes Treatment Clinical Notes Nov, Degenerative disc disease, lumbar (ICD-10 - M51.36) [facility] Other 08-18-2022 Evaluation note* Encounter Date Diagnosis Assessment Notes Treatment Notes Treatment Clinical Notes Nov, BMI 34.0-34.9,adult (ICD-10 - Z68.34) eRX sent. OARRS completed. Pt to call with any concerns. [facility] Other 08-08-2022 Evaluation note* Encounter Date Diagnosis Assessment Notes Treatment Notes Treatment Clinical Notes Nov, Seasonal allergies (ICD-10 - J30.2) [facility] Other 08-03-2022 Evaluation note* Encounter Date Diagnosis Assessment Notes Treatment Notes Treatment Clinical Notes Nov, Degenerative disc disease, lumbar (ICD-10 - M51.36) [facility] Other 08-02-2022 Evaluation note* Encounter Date Diagnosis Assessment Notes Treatment Notes Treatment Clinical Notes Nov, Anxiety (ICD-10 - F41.9) [facility] Other 07-22-2022 Evaluation note* Encounter Date Diagnosis Assessment Notes Treatment Notes Treatment Clinical Notes Oct, BMI 35.0-35.9,adult (ICD-10 - Z68.35) E Rx sent. No other change today. We will recheck again in 1 month. Oct, Seasonal allergies (ICD-10 - J30.2) Pt to add OTC antihistamine - also do nasal steroid spray every day - 2 puffs.... [facility] Other 07-08-2022 Evaluation note* Encounter Date Diagnosis Assessment Notes Treatment Notes Treatment Clinical Notes Oct, Degenerative disc disease, lumbar (ICD-10 - M51.36) [facility] Other 06-21-2022 Evaluation note* Encounter Date Diagnosis Assessment Notes Treatment Notes Treatment Clinical Notes Sep, BMI 36.0-36.9,adult (ICD-10 - Z68.36) E Rx sent. OARRs completed. We will see patient back in 1 month. We discussed side effects and outcomes. [facility] Other 06-13-2022 Evaluation note* Encounter Date Diagnosis Assessment Notes Treatment Notes Treatment Clinical Notes Sep, Degenerative disc disease, lumbar (ICD-10 - M51.36) [facility] Other 05-18-2022 Evaluation note* Encounter Date Diagnosis Assessment Notes Treatment Notes Treatment Clinical Notes August, Degenerative disc disease, lumbar (ICD-10 - M51.36) [facility] Other 05-09-2022 Evaluation note* Encounter Date Diagnosis Assessment Notes Treatment Notes Treatment Clinical Notes August, Poison danilo (ICD-10 - L23.7) [facility] Other 05-04-2022 Evaluation note* Encounter Date Diagnosis Assessment Notes Treatment Notes Treatment Clinical Notes August, Anxiety (ICD-10 - F41.9) August, Seasonal allergies (ICD-10 - J30.2) [facility] Other 04-28-2022 Evaluation + Plan note Future Scheduled Tests Laboratory* Sedimentation Rate Automated 08/12/21 * CBC w/ Auto Diff 08/12/21 * Comprehensive Metabolic Panel 08/12/21 * C-Reactive Protein 08/12/21 [facility]04-21-2022 Evaluation note* Encounter Date Diagnosis Assessment Notes Treatment Notes Treatment Clinical Notes Jul, Degenerative disc disease, lumbar (ICD-10 - M51.36) [facility] 03-07-2022 Evaluation note* Encounter Date Diagnosis Assessment Notes Treatment Notes Treatment Clinical Notes Jun, Bloody stool (ICD-10 - K92.1) [facility] Other 02-22-2022 Evaluation note* Encounter Date Diagnosis [...] for scoping. She voices agreement and understanding. [facility] Other 11-12-2021 Evaluation note* Encounter Date Diagnosis Assessment Notes Treatment Notes Treatment Clinical Notes Feb, Degenerative disc disease, lumbar (ICD-10 - M51.36) [facility] Other 11-12-2021 Evaluation note* Encounter Date Diagnosis Assessment Notes Treatment Notes Treatment Clinical Notes Feb, Need for influenza vaccination (ICD-10 - Z23) [facility] Other 02-01-2021 History general Narrative - Reported* Type Description Date Medical History degenerative disc disease Medical History anxiety Medical History COVID - May 2020 [facility] Other 02-01-2021 History general Narrative - Reported* Type Description Date Medical History degenerative disc disease Medical History anxiety Medical History COVID - May 2020 Medical History 5 weeks gestation [employer] Other Evaluation + Plan note Future Appointments Appointment Date:08/24/2021 11:15:00 AM Scheduled Provider: Location:[facility] Appointment Type:Surgery PAT COVID Testing Future Scheduled Tests Laboratory* Sedimentation Rate Automated 08/12/21 * CBC w/ Auto Diff 08/12/21 * Comprehensive Metabolic Panel 08/12/21 * C-Reactive Protein 08/12/21 [facility] Evaluation + Plan note Future Appointments Appointment Date:07/29/2022 01:00:00 PM Scheduled Provider: Location:.[facility] Appointment Type:US Abdominal/Pelvis (FT) Appointment Date:07/29/2022 06:00:00 PM Scheduled Provider: Location:.MRI Appointment Type:MRI Spine (FT) Appointment Date:09/26/2022 02:05:00 PM Scheduled Provider: Location:[facility] Appointment Type:Surgery FT Future Scheduled Tests Laboratory* Sedimentation Rate Automated 08/12/21 * CBC w/ Auto Diff 08/12/21 * CBC w/ Auto Diff 07/27/22 * Comprehensive Metabolic Panel 08/12/21 * Comprehensive Metabolic Panel 07/27/22 * C-Reactive Protein 08/12/21 Radiology* US Gallbladder 07/29/22 * MRI Spine Lumbar w/o Contrast 07/29/22 [facility] Evaluation + Plan note Future Appointments Appointment Date:09/26/2022 02:05:00 PM Scheduled Provider: Location:[facility] Appointment Type:Surgery FT Future Scheduled Tests Laboratory* Sedimentation Rate Automated 08/12/21 * CBC w/ Auto Diff 08/12/21 * CBC w/ Auto Diff 07/27/22 * Comprehensive Metabolic Panel 08/12/21 * Comprehensive Metabolic Panel 07/27/22 * [facility] Appointment Date:11/18/2022 08:30:00 AM Scheduled Provider: Location:[facility] Appointment Type:Surgery FT Future Scheduled Tests Laboratory* CBC w/ Auto Diff 07/27/22 * Comprehensive Metabolic Panel 07/27/22 [facility] Dig[facility]ive [facility] Evaluation noteNo InformationN[facility]iversity [facility] [place] Other Evaluation noteNo assessment information available [facility] Work Phone: Evaluation noteNort [place] Other [facility] [place] Other History general Narrative - [facility] [place] Other History general Narrative - ReportedNoun[facility] [place] Other Hospital course Narrative No data available for this section [facility] Hospital Discharge instructions No data available for this section [facility] Progress note No data available for this section [facility] Advance Directives No Advanced Directives Records Found Advance Directive Response Recorded Date/ Time Advance Directives No June 27 019 8:37am Summary Purpose Family History No Family History Records Found Additional Source Comments REASON FOR VISIT (unrecogniz ed section and content) RefillsFlu Vaccine6 month Fo llow upstool cardsNew Refill RequestClinical Acute Illnessrefill singulair, lexaproNew Refill RequestNew Refill Requestdiscuss adipexNew Refill Request1 month Follow uprefill lexaprorefill Tylenol [id number] month Follow up1 month Follow upNew Refill [...] potential MRI order, she did go to [place] [id number] and is awaiting testing for the adhd [...] and also counseling for the anxiety/ depression... [facility]al healthubrelvy [place] APPROVALADHD testing/Referral ReqNew Refill RequestClinical Acute IllnessNo InformationNew Refill RequestPain Medicine Office Notes1 month Follow up, says the Scope did show Ulcers, did go to Dr Payne's office- she says he suggested the PT- [...] and also counseling for the anxiety/ depression... [facility] Behavioral healthClinical Acute IllnessNew Refill Requestcall rec'd [...] pregnancyNew Refill Request6 month Follow up, first [facility]ER appt was monday12/09/22 (saw MEDICAL INSTRUCTOR for Ariel)-- she is about 9 weeks- next appt is in 4 weeks 01/09/2023, pt says one of her questions for OB was if she can restart the abilify - she definitely feels like this was great controlling the depression- and now that she's not on it she notices a difference, also has a question out to OB about pressure point injections (Dr Guilherme Payne) to see if this is ok with themNew Refill RequestNew Refill Requestubrelvy concernsNew Refill Requestrefill zofranNew Refill Request Care Team (unrecognized sect ion and content) Team Status: Active Member Role Status Dates Justin Max DO Primary Care Provider Active Team Status: Inactive Member Role Status Dates Justin Max DO Primary Care Provider Active William Payne MD Attending Provider Active Goals (unrecognized section and content) Goals may be documented in a n alternate section INFORMATION SOURCE (unrecogn ized section and content) DATE CREATED AUTHOR 02/26/2023 [facility] DATE CREATED AUTHOR AUTHOR'S ORGANIZ ATION 02/27/2023 [facility] DATE CREATED AUTHOR AUTHOR'S ORGANIZ ATION 04/26/2023 [facility] FOR RECORDS PERTAINING TO PATIENTS WHO ARE [...] BE BASED ON THE PRIMARY CLINICAL RECORDS. [employer] [facility]. provides no warranty or guarantee of the accuracy or completeness of information in this document.
[2023-04-29 08:46] LABS: Glucose Fasting 108 mg/dL (74-106)
== END 2023-04-29 08:03 | disposition home or self-care (01) ==
LOC: LAB 08:02
PROVIDERS: PCP Family Medicine; Visit Provider Obstetrics & Gynecology
DX: R73.09 Other abnormal glucose (principal)
CPT/HCPCS: 36415; 82951; 82952

== ENCOUNTER 2023-05-06 10:25 | Outpatient (OUT) | payer OTHER, SELFPAY ==
--- OUTSIDE RECORDS SUMMARY | 2023-05-06 10:29 | XMS_ITS | CCD ---
Author Name Unknown Address [address] [place] [address] Organization [facility] Care Team Providers Care 4 H Youth Development Specialist Name Role Phone CHARLY MAXH Bernard Primary Care Physician [phone] Mansoor, Justin Unavailable Johana Duran Unavailable William Payne Unavailable Mansoor, DO Justin M. Primary Care Provider MD William Payne Attending Provider MANSOOR, JUSTIN M Admitting Unavailable MANSOOR, JUSTIN [...] Drug Allergy Eruption (morphologic abnormality), Itching (finding) [facility] (20 sources) rizatriptan Drug Allergy nausea [employer] [facility] Other (20 sources) meloxicam Drug Allergy worse joint symptoms, nauseous [facility] Other (20 sources) Acetaminophen / Codeine Drug Allergy rash/facial swelling [facility] Other (4 sources) Codeine; Translations: [codeine] Drug Allergy Eruption of skin (disorder) [facility] (20 sources) Diclofenac Drug Allergy nausea [facility] Other (1 source) Azithromycin; Translations: [Zithromax Z-Sixto] Drug Allergy [facility] Repository Medications Current Medications Medication Drug [...] hours Start: 10-21-2022 take 1 tablet by hselby th every twelve hours HYDROcodone-Acetaminophen 5-325 MG [...] Active Start: 07-05-[address] [facility] once daily Lexapro 10 mg Tab [...] Ordered Start: 10-16-2020 take 1 capsule by [facility] every twenty-four hours Esomeprazole Magnesium 20 [...] follow instructions per packaging and physician's handout, [facility], 157, cm, 07/27/22 9:34:00 EDT, [...] day(s), # 20 tab(s), Refills(s) 0, Pharmacy: [facility], 158, cm, 02/22/23 12:17:00 EST, Height/Length [...] Daily, # 90 cap(s), Refills(s) 3, Pharmacy: [facility], 158, cm, 11/09/22 13:50:00 EDT, Height/Length [...] to colonoscopy as instructed by Dr. Hawkins., [facility], 157, cm, 08/12/21 12:58:00 EDT, [...] Nausea/Vomiting, # 12 tab(s), Refills(s) 0, Pharmacy: [facility], 158, cm, 02/22/23 12:17:00 EST, Height/Length Dosing, 87.3, kg, 02/22/23 12:17:00 EST, Weight Dosing Start Date: 02/22/23 Status: Ordered Start: 03-23-2022 take 1 tablet by [facility] every eight hours as needed for nausea Zofran ODT 4 mg Tab-Dis 4 mg = 1 tab(s), Oral, q8hr, PRN Nausea/Vomiting, # 12 tab(s), Refills(s) 0, Pharmacy: [facility], 157, cm, 03/23/22 13:50:00 EST, Height/Length [...] Locations R1: This test was performed at: [facility], [address] [place] [address], [address]- , , Normal [facility] Comment on above: Performed By: #### 2 512587, [id number] #### [facility] [address] [place] [address]87[address] Auto Diffon 02-22-2023 Basophils/100 WBC (Bld) 0.5 % Normal 0.0-2.0 [facility] Comment on above: Order Comment: Order Added by Discern Expert. Performed By: #### 2 813196, 2181078, 6978681, 33344135, 1576624, 2745287 #### [facility] [address] [place] [address] Basophils/Leukocyt es Auto (Bld) [Pure # fraction] 0.0 E9/L Normal 0.0-0.2 [facility] Comment on above: Order Comment: Order Added by Discern Expert. Performed By: #### 2 508439, 1921633, 8715805, 04850762, 6110474, 7067335 #### [facility] [address] [place] [address] Eosinophils/100 WBC (Bld) 1.8 % Normal 0.0-8.0 [facility] Comment on above: Order Comment: Order Added by Discern Expert. Performed By: #### 2 482161, 3097160, 0374337, 81392490, 2492456, 9121122 #### [facility] [address] [place] [address] Eosinophils/Leukoc ytes Auto (Bld) [Pure # fraction] 0.2 E9/L Normal 0.0-0.5 [facility] Comment on above: Order Comment: Order Added by Discern Expert. Performed By: #### 2 069624, 2631973, 0827407, 47441313, 8567910, 6082982 #### [facility] [address] [place] [address] Lymphocytes/100 WBC (Bld) 19.0 % Normal 14.0-50.0 [facility] Comment on above: Order Comment: Order Added by Discern Expert. Performed By: #### 2 708601, 8727233, 0469207, 99834934, 5101837, 0506554 #### [facility] [address] [place] [address] Lymphocytes/Leukoc ytes Auto (Bld) [Pure # fraction] 1.6 E9/L Normal 1.0-4.0 [facility] Comment on above: Order Comment: Order Added by Discern Expert. Performed By: #### 2 524533, 2191003, 6292622, 41564624, 1880199, 9017353 #### [facility] [address] [place] [address] Monocytes/100 WBC (Bld) 7.4 % Normal 4.0-14.0 [facility] Comment on above: Order Comment: Order Added by Discern Expert. Performed By: #### 2 916463, 2038826, 6964909, 97800034, 4948995, 7503024 #### [facility] [address] [place] [address] 34995 Monocytes/Leukocyt es Auto (Bld) [Pure # fraction] 0.6 E9/L Normal 0.2-1.0 [facility] Comment on above: Order Comment: Order Added by Discern Expert. Performed By: #### 2 183486, 5651977, 4859739, 25342816, 6731676, 6558771 #### [facility] [address] [place] [address] Neutrophils/100 WBC (Bld) 71.3 % Normal 36.0-75.0 [facility] Comment on above: Order Comment: Order Added by Discern Expert. Performed By: #### 2 136298, 0111465, 6563539, 87230235, 7737261, 1233080 #### [facility] [address] [place] [address] Neutrophils/Leukoc ytes Auto (Bld) [Pure # fraction] 6.0 E9/L Normal 2.0-7.5 [facility] Comment on above: Order Comment: Order Added by Discern Expert. Performed By: #### 2 966981, 3945605, 1698613, 71488080, 6650762, 1531279 #### [facility] [address] [place] [address] BMPon 02-22-2023 Creatinine [Mass/Vol] 0.5 mg/dL Normal 0.5-1.3 [facility] Comment on above: Performed By: #### 2 220130, 6077791, 6862032, 91296290, 6592194, 9720572 ####[facility] [address] [place] [address] Urea nitrogen [Mass/Vol] 6 mg/dL Normal 5-21 [facility] Comment on above: Performed By: #### 2 160257, 5164863, 8394526, 34201534, 2228935, 5840558 ####[facility] [address] [place] [address] Urea nitrogen/Creatinin e [Mass ratio] 12 No Units Normal 10-20 [facility] Comment on above: Performed By: #### 2 312264, 7038107, 8482786, 46150450, 0164006, 1821518 ####[facility] [address] [place] [address] Anion gap [Moles/Vol] 9 mmol/L Normal 6-16 [facility] Comment on above: Performed By: #### 2 132204, 0698826, 0729914, 54354013, 0156842, 2006754 ####[facility] [address] [place] [address] Calcium [Mass/Vol] 8.8 mg/dL Low 8.9-11.1 [facility] Comment on above: Performed By: #### 2 319545, 8351711, 8331134, 95352264, 2001354, 4820602 ####[facility] [address] [place] [address] Chloride [Moles/Vol] 108 mmol/L Normal 101-111 [facility] Comment on above: Performed By: #### 2 103491, 8012140, 5265052, 47127868, 1803374, 6165706 ####[facility] [address] [place] [address] CO2 [Moles/Vol] 23 mmol/L Normal 21-31 [facility] Comment on above: Performed By: #### 2 992149, 5043825, 4492680, 86788836, 4434504, 5259011 ####[facility] [address] [place] [address] Glucose [Mass/Vol] 93 mg/dL Normal 55-199 [facility] Comment on above: Result Comment: If t his glucose result represents a fasting glucose, interpretation should refer to the following reference range: 55-99 mg/dL Performed By: #### 2 483498, 9679120, 6449619, 22027222, 9118165, 4554412 ####[facility] [address] [place] [address] Potassium [Moles/Vol] 3.4 mmol/L Low 3.5-5.3 [facility] Comment on above: Performed By: #### 2 318618, 5310590, 5633134, 89108937, 3083280, 3797543 ####[facility] [address] [place] [address] Sodium [Moles/Vol] 137 mmol/L Normal 135-145 [facility] Comment on above: Performed By: #### 2 031241, 0400443, 2203741, 96127903, 4429774, 4288076 ####[facility] [address] [place] [address] CBC w/ Auto Diffon Erythrocyte distribution width (RBC) [Ratio] 12.6 % Normal 10.9-14.2 [facility] Comment on above: Performed By: #### 2 746660, 1327509, 3442677, 30810647, 2562554, 4115668 #### [facility] [address] [place] [address] Hematocrit (Bld) [Volume fraction] 35.9 % Normal 34.0-46.0 [facility] Comment on above: Performed By: #### 2 873581, 8720029, 0282890, 50662981, 0535942, 1487520 #### [facility] [address] [place] [address] Hemoglobin (Bld) [Mass/Vol] 12.0 g/dL Normal 12.0-16.0 [facility] Comment on above: Performed By: #### 2 629447, 5774073, 8499457, 63422247, 1954285, 8902905 #### [facility] [address] [place] [address] MCH (RBC) [Entitic mass] 32.7 pg Normal 27.0-34.0 [facility] Comment on above: Performed By: #### 2 660276, 1934078, 3323234, 85911591, 3756772, 0419221 #### [facility] [address] [place] [address] MCHC (RBC) [Mass/Vol] 33.4 g/dL Normal 31.4-36.0 [facility] Comment on above: Performed By: #### 2 761646, 8810735, 7328813, 40266922, 9079606, 7771332 #### [facility] [address] [place] [address] MCV (RBC) [Entitic vol] 97.8 fL Normal 80.0-100.0 [facility] Comment on above: Performed By: #### 2 073385, 6349193, 2954788, 72454926, 1988485, 8941353 #### [facility] [address] [place] [address] Platelet mean volume (Bld) [Entitic vol] 7.9 fL Normal 6.4-10.8 [facility] Comment on above: Performed By: #### 2 427664, 8270347, 9291086, 48604305, 4550168, 3062785 #### [facility] [address] [place], [place] [address] Platelets (Bld) [#/Vol] 323.0 E9/L Normal 150.0-500.0 [facility] Comment on above: Performed By: #### 2 527294, 8335123, 7502086, 92611588, 0030646, 6009204 #### [facility] [address] [place], [place] [address] RBC (Bld) [#/Vol] 3.7 E12/L Low 4.3-5.9 [facility] Comment on above: Performed By: #### 2 228144, 4002643, 9532463, 63088336, 4786354, 1561175 #### [facility] [address] [place], [place] [address] WBC corrected for nucl RBC Auto (Bld) [#/Vol] 8.4 E9/L Normal 4.0-11.0 [facility] Comment on above: Performed By: #### 2 274988, 6762867, 2807898, 41071838, 2270932, 6686115 #### [facility] [address] [place] [address] CHEMISTRYOrdered By: SYSTEM SYSTEM on 02-22-2023 Albumin [...] 130 mL/min/1.73 m2 Normal >=59mL/min/1.7 3 m2 [facility] Chem S Comment on above: Interpretive Data: [...] 6 mg/dL Normal 5 - 21 mg/dL [facility] Remisol Urea nitrogen/Creatinin e [Mass ratio] 12 mg/mg Normal 10 - 20 [facility] Remisol Consent for Treatmenton Consent for Treatment [id number] Normal [facility] Discharge Instructionson Discharge Instructions [id number] Normal [facility] ED Clinical Summaryon 2022 ED Clinical Summary [place] [id number] ED Clinical Summary Person Information Name: BERENICE SANTOS [facility] Age: 27 Years : 1995 Sex: Female Language: Serbian PCP: JUSTIN MAX DO Marital Status: Visit [...] 02/22/2023 14:31:11 02/22/2023 14:31:11 02/22/2023 14:31:11 ADDRESS: [address] [place] [address] [address] [place] [id number] PHYS DOC NOTES: MEDICAL INFORMATION: Prescriptions Given: New Medications [facility], [address] [place], [place] [id number], [phone] metoclopramide (Reglan 5 mg Tab) 1 Tablets By Mouth every 6 hours for 7 Days. to use if zofran fails.. Refills: 0. Medications to Continue Taking That Have Changed [facility] [address], [address] [place], [place] [id number], [phone] START: ondansetron (Zofran ODT 4 mg Tab-Dis) [...] Follow up: With: Address: When: Joce DAVIDSON [facility], [address] [place] [address] , [place] [address] Business (1) In 3 days 02/25/2023 With: Address: When: JUSTIN MAX [address] [place] [address] [address] Business (1) In 3 days 02/25/2023 Comments: Follow-up with your primary care provider in 3 to 5 days. If symptoms worsen, do not improve, or new symptoms arise please report back to emergency department for further evaluation. DIAGNOSIS: Vomiting during Normal [facility] ED Note-Physicianon 02-23-20 ED Note-Physician Basic [...] does follow-up with Dr. Davidson for her RETURN AGENT. Is appointment next week. Reports that she [...] and Complexity of Problems Differential Diagnosis: [] [facility] Data External documents reviewed: [] My [...] in the emergency department. Discussed follow-up with RETURN AGENT. Discussed return precautions. Follow-up with your primary [...] day(s), # 20 tab(s), Refills(s) 0, Pharmacy: [facility], 158, cm, 02/22/23 12:17:00 EST, Height/Length Dosing, 87.3, kg, 02/22/23 12:17:00 EST, Weight Dosing ondansetron, 4 mg = 1 tab(s), Oral, q8hr, PRN Nausea/Vomiting, # 12 tab(s), Refills(s) 0, Pharmacy: [facility], 158, cm, 02/22/23 12:17:00 EST, Height/Length [...] Joce DAVIDSON In 3 days 02/25/[address] [place] [address]- Business (1) Additional Instructions: JUSTIN MAX In 3 days 02/25/2023 EST [address] [place] [address]- Business (1) Additional Instructions: Follow-up with your primary care provider in 3 to 5 days. If symptoms worsen, do not improve, (more content not included)... Normal [facility] Comment on above: Result Comment: Elec tronically Signed By: Dmitry Werner PA-C\.br\Date and Time Signed: 02/22/23 14:50 EST\.br\Electronically Co-Signed By: Rodney Johnson M.D.\.br\Date and Time Co-Signed: 02/22/23 16:24 EST ED Patient Education Noteon 02-22-2023 ED Patient Education Note Normal [facility] ED Patient Summaryon 023 ED Patient Summary (Inserted Image. Laureen ble to display) [address] [address] Patient Discharge Instructions Person Information Name: BERENICE SANTOS Age: 27 Years Arrival Date: 02/22/2023 11:54:35 Discharge Diagnosis: Vomiting during Primary Care Physician: JUSTIN MAX DO Provider Information Primary Provider: Rodney Johnson M.D. Advanced Head Strength And Conditioning Coach:None The exam and treatment you received in the Emergency Department were for an urgent problem and are not intended as complete care. It is important that you follow up with a doctor, nurse practitioner, or physician?s administrative assistant office manager for ongoing care. If your symptoms become worse or you do not improve as expected and you are unable to reach your usual health care provider, you should return to the Emergency Department. We are available 24 hours a day. BERENICE SANTOS has been given the following list of patient education materials, prescriptions and follow-up instructions: Follow-up Instructions: With: Address: When: Joce DAVIDSON [facility], [address] [place] [address] [place] [address] Business (1) In 3 days 02/25/2023 With: Address: When: JUSTIN MAX [address], [facility] [address] [place] [address] [employer] (1) In 3 days 02/25/2023 Comments: Follow-up [...] opioids can be used to help relieve pjzilqua-ky-duelhn pain and are often prescribed following a [...] Drug A (more content not included)... Normal [facility] HEMATOLOGYOrdered By: SYSTEM SYSTEM on 02-22-2023 [...] Bilirubin.indirect [Mass or moles/Vol] UTC Abnormal 0.1-0.9 [facility] Comment on above: Result Comment: Resu lt verified by Discern Rule. Performed result UTC (Unable to Calculate) was sent as an Alpha code due the inability to calculate a valid numeric value. Performed By: #### 2 518046, 2160302, 0539187, 72431806, 9031671, 2982920 ####[address] [address] Albumin [Mass/Vol] 3.4 g/dL Normal 3.3-5.0 [facility] Comment on above: Performed By: #### 2 339235, 8851888, 6707741, 61206813, 0905354, 6641075 ####[address] [address] Albumin/Globulin (S) [Mass conc ratio] 1.1 Normal 1.1-2.2 [facility] Comment on above: Performed By: #### 2 212248, 2903701, 8011443, 34874199, 7317804, 2813312 ####[address] [address] ALP [Catalytic activity/Vol] 35 Int._Unit/L Normal 21-98 [facility] Comment on above: Performed By: #### 2 726541, 0618833, 4002349, 81567294, 0895276, 6599452 ####[address] [address] ALT No additional P-5'-P [Catalytic activity/Vol] 13 Int._Unit/L Normal 6-46 [facility] Comment on above: Performed By: #### 2 107815, 8083645, 3849397, 99495881, 1437854, 1604787 ####[address] [address] AST [Catalytic activity/Vol] 13 Int._Unit/L Normal 5-43 [facility] Comment on above: Performed By: #### 2 354130, 9557067, 5538460, 46542501, 6075209, 9473559 ####[place] [address] [place] [address] Bilirubin [Mass/Vol] 0.2 mg/dL Normal 0.0-1.1 [facility] Comment on above: Performed By: #### 2 459006, 3488856, 3004889, 32456600, 4908093, 1859000 ####[facility] [address] [place] [address] Globulin (S) [Mass/Vol] 3.2 g/dL Normal 1.4-4.0 [facility] Comment on above: Performed By: #### 2 063952, 5984046, 3743630, 65899424, 7220338, 5958768 ####[facility] [address] [place] [address] Protein [Mass/Vol] 6.6 g/dL Normal 6.0-7.8 [facility] Comment on above: Performed By: #### 2 059106, 9568177, 2876809, 71540446, 6938739, 3427346 ####[facility] [address] [place] [address] Bilirubin.direct [Mass/Vol] mg/dL Normal 0.1-0.4 [facility] Comment on above: Performed By: #### 2 250130, 7704505, 5545571, 56950876, 4050783, 0268262 ####[facility] [address] [place] [address] Lipase Levelon 02-22-2023 Lipase [Catalytic activity/Vol] 25 U/L Normal 13-58 [facility] Comment on above: Performed By: #### 2 002602, 6175459, 6830377, 01145138, 0075960, 7010805 ####[facility] [address] [place] [address] UA With Cult Reflexon 2022 Bacteria LM Ql (Urine sed) TRACE Normal Trace [facility] Comment on above: Performed By: #### 2 501008, 56144460 #### [facility] [address] [place] [address] Bilirubin Ql (U) Negative Normal Negative [facility] Comment on above: Performed By: #### 2 270443, 00643925 #### [facility] [address] [place] [address] Clarity (U) CLEAR Normal Clear [facility] Comment on above: Performed By: #### 2 158913, 54449031 #### [facility] [address] [place] [address] Color (U) YELLOW Normal Yellow [facility] Comment on above: Performed By: #### 2 927901, 43182187 #### [facility] [address] [place] [address] Crystals LM Ql (Urine sed) Present Normal [facility] Comment on above: Performed By: #### 2 773248, 14513950 #### [facility] [address] [place] [address] Epithelial cells.squamous LM.HPF (Urine sed) [#/Area] 5-8 Normal 0-2 [facility] Comment on above: Performed By: #### 2 429452, 28943215 #### [facility] [address] [place] [address] Glucose Test strip (U) [Mass/Vol] Negative Normal Negative [facility] Comment on above: Performed By: #### 2 757078, 09592076 #### [facility] [address] [place] [address] Hemoglobin Ql (U) Negative Normal Negative [facility] Comment on above: Performed By: #### 2 042758, 98256857 #### [facility] [address] [place] [address] Ketones (U) [Mass/Vol] 3+ Abnormal Negative [facility] Comment on above: Performed By: #### 2 937208, 95843604 #### [facility] [address] [place] [address] [place].plasma/Lit hium.RBC (Bld) [Mass ratio] 0-3 Normal 0-3 [facility] Comment on above: Performed By: #### 2 062102, 01178384 #### [facility] [address] [place] [address] Mucus Ql (Urine sed) TRACE Normal [facility] Comment on above: Performed By: #### 2 386576, 51098482 #### [facility] [address] [place] [address] Nitrite Ql (U) Negative Normal Negative [facility] Comment on above: Performed By: #### 2 985937, 04223902 #### [facility] [address] [place] [address] pH (U) 7.0 [pH] Invalid Interpretation Code 5.0-9.0 [facility] Comment on above: Performed By: #### 2 655840, 91862586 #### [facility] [address] [place] [address] Protein (U) [Mass/Vol] Negative Normal Negative [facility] Comment on above: Performed By: #### 2 016875, 76326579 #### [facility] [address] [place], [place] [address] Specific gravity (U) [Rel density] 1.015 Invalid Interpretation Code 1.005-1.030 [facility] Comment on above: Performed By: #### 2 591545, 63491691 #### [facility] [address] [place] [address] Type of Urine collection method Clean Catch Normal [facility] Comment on above: Performed By: #### 2 910523, 14754419 #### [facility] [address] [place] [address] Urobilinogen Qn (U) 0.2 {Chiara'U}/dL Normal 0.0-1.0 [facility] Comment on above: Performed By: #### 2 849776, 26714671 #### [facility] [address] [place] [address] WBC Auto Ql (U) 1+ Abnormal Negative [facility] Comment on above: Performed By: #### 2 217653, 77528037 #### [facility] [address] [place] [address] WBC LM.HPF (Urine sed) [#/Area] 0-5 Normal 0-5 [facility] Comment on above: Performed By: #### 2 328640, 90348821 #### [facility] [address] [place] [address] URINALYSISOrdered By: Hilda Yeh on 02-22-2023 Bacteria [...] Interpretation Code Negative [facility] UA Auto SS [place].plasma/Lit hium.RBC (Bld) [Mass ratio] 0-3 /HPF Normal [...] Desc Clean Catch (02/22/23 12:21 PM) Normal [facility] UA Auto SS Urobilinogen Qn (U) 0.9302427 {Chiara'U}/dL Normal 0.0 - 1.0 EU/dL [facility] UA Auto SS WBC Auto Ql (U) 1+ *ABN* (02/22/23 12:21 PM) Invalid Interpretation Code Negative [facility] UA Auto SS WBC LM.HPF (Urine sed) [#/Area] 0-5 /HPF Normal 0-5/HPF [facility] UA Auto SS eGFRon 02-22-2023 GFR/1.73 sq M.predicted among non-blacks MDRD (S/P/Bld) [Vol rate/Area] 130 mL/min/1.73 m2 Normal >=59 [facility] Comment on above: Order Comment: Order added by Discern Expert. Result Comment: Census Taker juan pablo kidney disease could be indicated at eGFR's of less than 60 mL/min/1.73m2. Kidney failure is indicated at less than 15 mL/min/1.73m2. Performed By: #### 2 520949, 4564260, 1583701, 02364433, 2778110, 0511314 ####[facility] [facility] [address] [place] [address] Reminderson 11-16-2022 Reminders - From: Olena Resendez CNP To: Shayy Dubon; Sent: 11/09/2022 13:40:58 EDT Show up: 11/09/2022 13:41:00 EDT Subject: Ambulatory Reminder Reminder/Recall Colonoscopy [place] [address] Hawkins. 10/17/2032 [address] hawkins From: Shayy Dubon To: [facility] - Reminders/Recalls; Sent: 11/16/2022 14:37:40 EDT ! Show up: 09/15/2032 14:37:00 EDT Due Date/Time: 10/15/2032 14:37:00 EDT [facility] Insurance Correspondenceon 0 11-14-2022 Insurance Correspondence [id number]#1.00CD:12 7 [facility] Consent for Procedure/Surger yon 11-10-2022 Consent for Procedure/Surgery [id number]#1.00CD:1 27 [facility] Ambulatory Visit Summaryon 0 11-09-2022 Ambulatory [...] such a (more content not included)... [facility] Gastroenterology Office/Clin ic Noteon 11-09-2022 Gastroenterology [...] Was previously evaluated in the ED at [facility] 03/23/22 and note indicated patient with blood [...] 09/26/2022 reveal (more content not included)... [facility] Comment on above: Result Comment: Elec [...] ask your health care provider. ? Take kxpw-kfo-barurwc and prescription medicines only as told by your health care provider. ? Do not use hxrp-njc-gdbymku medicines in place of prescription medicines unless [...] ask your health care provider. ? Take oegw-oph-ltsiuok and prescription medicines only as told by your health care provider. Do not use supz-fyk-tnuflow medicines in place of prescription medicines unless [...] Reviewed: 11/12/2021 Elsevier Patient Education ? 2022 [employer] [facility] Postoperative Documentson Postoperative Documents [id number]#1.00CD:1 27 [facility] IntraOperative Documentson 0 10-07-2022 IntraOperative Documents [id number]#1.00CD:1 27 [facility] XR thoracic spine 2Von 10-06 XR thoracic spine 2V [facility] Main [address] [address] XRay Report Signed Patient: Berenice Santos MR#: [id number] : 1995 Acct:[id number] Age/Sex: 27 / F ADM Date: 10/06/22 Loc: SOXD Room: Type: [facility] CLI Attending Dr: William Payne MD Copies [...] Lopez Jr., D.O.10/06/2022 4:48 PM Dictation Location: [place] [address] Transcribed By: [facility] 10/06/221647 Dictated By: Jairo Lopez Jr, DO 10/06/221647 Signed By: 10/06/22 1648 [facility] XR cerv spine AP/LAT/FLX/EXT on 10-05-2022 XR cerv spine AP/LAT/FLX/EXT [facility] Main [place] [address] [place] [address] XRay Report Signed Patient: Berenice Santos MR#: [id number] : 1995 Acct:[id number] Age/Sex: 27 / F ADM Date: 10/05/22 Loc: XD250 Room: Type: [facility] CLI Attending Dr: William Payne MD Copies [...] 10/05/22 1259 Signed By: 10/05/22 1302 Normal [facility] XR shoulder RT min 2V*on XR shoulder RT min 2V* [facility] Main [place] [address] [place] [address] XRay Report Signed Patient: Berenice Santos MR#: [id number] : 1995 Acct:[id number] Age/Sex: 27 / F ADM Date: 10/05/22 Loc: XD250 Room: Type: [facility] Attending Dr: William Payne MD Copies [...] MD 10/05/22 1302 Signed By: 10/05/22 1304 [facility] Consenton 09-28-2022 Consent [id number]#1.00CD:1 27 [facility] Discharge Instructionson Discharge Instructions [id number]#1.00CD:1 27 [facility] Main OR Intraoperative Recor don 09-27-2022 Main OR Intraoperative Record IntraOp Document Type FT Summary Primary Physician: Roma HAWKINS MD Finalized Date/Time: 09/27/22 14:50:44 Pt. Name: BERENICE SANTOS/Sex: 1995 Female Med Rec #: [id number] Physician: Roma HAWKINS MD Financial #: [id number] Pt. 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 Yes Last Modified By: Darlyn Blount RN 09/26/22 10:08:37 Post-Care Text: The patient is free from signs and symptoms of injury caused by extraneous objects Patient Positioning FT Pre-Care Text: Identifies physical alterations that require additional precautions for procedure-specific positioning, ara (more content not included)... [facility] Main OR PACU I Recordon 09-15 Main OR PACU I Record PACU Phase I Document Type FT Summary Primary Physician: Roma HAWKINS MD Finalized Date/Time: 09/27/22 09:59:55 Pt. Name: BERENICE SANTOS/Sex: 1995 Female Med Rec #: [id number] Physician: Roma HAWKINS MD Financial #: [id number] Pt. Type: O Room/Bed: Endo OP 05/18 [...] Signed By: Roseline Mcbride RN 09/27/22 09:59 [facility] Pre-Certification Formon Pre-Certification Form [id number]#1.00CD:12 7 [facility] Progress Note-Physicianon Progress Note-Physician Patient: BERENICE SANTOS Age: 27 years Sex: Female : 1995 Associated Diagnoses: None Author: Sam Noel Jr., DO Postoperative Information Postoperative disposition: Postoperative disposition: Home. Optimetrix number: Optimetrix number [id number]. Anesthetic utilized: General. Physical Examination Vital Signs [...] Surgery Unit, and To home ). [facility] Comment on above: Result Comment: Elec tronically Signed By: Sam Noel Jr., DO\Date and Time Signed: 09/27/22 06:50 EDT Consent for Treatmenton 09-15 Consent for Treatment [id number]#1.00CD:12 7 [facility] Endoscopic Procedure Report - Otheron 09-26-2022 [...] Return to activities:: After 24 hours. [facility] Comment on above: Result Comment: Elec [...] daily 4. Avoid NSAIDs and alcohol [facility] Comment on above: Result Comment: Elec tronically Signed By: Roma HAWKINS MD\.br\Date and Time Signed: 09/26/22 13:30 EDT Other Comment: Phyllis jo Attachment - attachment storage system not supported [id number] Can be viewed in source systemMissing Attachment - attachment storage system not supported [id number] Can be viewed in source systemMissing Attachment - attachment storage system not supported [id number] Can be viewed in source system Main OR Preoperative Recordo n 09-26-2022 Main OR Preoperative Record Holding Area Document Type FT Summary Primary Physician: Roma HAWKINS MD Finalized Date/Time: 09/26/22 12:59:29 Pt. Name: BERENICE SANTOS D.O.B./Sex: 1995 Female Med Rec #: [id number] Physician: Roma HAWKINS MD Financial #: [id number] Pt. Type: O Room/Bed: Endo OP 05/18 [...] By: Syed Chung RN 09/26/22 12:59 [facility] Monitor Recordon 09-26-2022 Monitor Record [id number]#1.00CD:1 27 [facility] Monitor Record [id number]#1.00CD:1 27 [facility] Progress Note-Physicianon Progress Note-Physician Patient: [...] follow instructions per packaging and physician's handout, [facility], 157, cm, 07/27/22 9:34:00 EDT, Height/Length Dosing, 76.7, kg, 07/27/22 9:34:00 EDT, Weight Dosing Zofran ODT 4 mg Tab-Dis: 4 mg = 1 tab(s), Oral, q8hr, PRN Nausea/Vomiting, # 12 tab(s), Refills(s) 0, Pharmacy: [facility], 157, cm, 03/23/22 13:50:00 EST, Height/Length [...] Problems Blood in stool / SNOMED CT 7736361960 / Confirmed BMI 31.0-31.9,adult / SNOMED CT 175159160 / Confirmed Cholelithiasis / SNOMED CT 167950606 / Confirmed Chronic midline low back pain with sciatica / SNOMED CT 320155632 / Confirmed Epigastric pain / SNOMED CT 702873392 / Confirmed Family history of colonic polyps / SNOMED CT 0278257106 / Confirmed Nausea and vomiting / SNOMED CT 54960343 / Confirmed Rectal bleeding / SNOMED CT 952679753 / Confirmed Smoker / SNOMED CT 798947298 / Confirmed Added secondary to documentation in Social History. Trochanteric bursitis of left hip / SNOMED CT 57579323 / Confirmed Resolved: / SNOMED CT 774090575 Resolved: DDD (degenerative disc disease), cervical / SNOMED CT 5T424S16-8WE1-6135-5C14-6 [id number] Canceled: Back pain / SNOMED CT 295906393 Canceled: Smoker / IMO [id number] Added secondary to documentation in Social History. Histories Past Medical History: Active Blood in stool (1490929813) Resolved (195867653): Onset on 04/17/2012 at 16 years. Resolved on 12/27/2012 at 17 years. DDD (degenerative disc disease), cervical ([id number]- [id number]): Resolved. Procedure history: None (323186347). 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 Cardiovascular: Regular rhythm. Plan [employer] Anesthesiologists (ASA) physical status classification: Class II. Anesthetic Preoperative Plan: Anesthesia General, and -TIVA. 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 female here [...] should p (more content not included)... [facility] Comment on above: Result Comment: Elec [...] ovarian syndrome (PCOS). ? Binge-eating disorder. ? [place] syndrome. ? Taking certain medicines, such as [...] food choices, such as grocery stores and [employer] markets. What are the signs or symptoms? [...] have to (more content not included)... [facility] Coding Summary.on 08-04-2022 Coding Summary. CD:403700Xoqa57LTi8g Ww+PG hlYWQ+VG0ZGALdF44glUDigR9 fQ3OZVThGSypiBYFFYVvOQoDv wyPwLQ6ueHMfUVRi IC8+QH1gIZEsTyfqwMFfo6G2b PL4H28rse2jKJssuLR0QQZeRa Crmnqgs7lazQq0RMrxEmgxQdR t WHZteD46UHE6oK54Dn74hDVdl JCed3iytLd7BdMfOBJeIOC7kH itHAzob8FhVIQqM71jgHSth7D 6 LJGqaUzlyDEkCzTdxDA2aK3lQ Xjqeifhl8wipcpuJzc3np32iN Akr2P3sEK2D6MtloM2QDUguKP g FpkwoCXYtD2hlsjne3tfqkfuY pGrUYKuAFx7OOu4CROpkFjnQn AmBG60JDR4FIFtezVwY2RnKXC s aEunQkF1f0J4Cl2LU8LEQiirZ 1VNTUFSWTwvdGQ+YD54gk65U7 UnZvvhSyy5CZYyCJU8cKP4mL7 n TMVhDFkck0E7hGN0G7GmtpWdf i6dy9gqOVFlRDdjE70huBTqk0 U3HYYhiWY6KTMjyAxlLbTxxB7 3 Oyc+PRVhkUnka7ApHcydq0qhe 4iqaSg6AvpsNSHwneYeuWbjHV D3t8YtAc4mNTRbqYN2rYW6oG0 i DwRyRmE5SMnaQ144CrIfaMSkN qvjS97dM3CmjTD+AVKuEpe2FE AzhTetKJ9oH5KhWQGyltqkjTF m gYxcDX5kSMMuhckiUHFzjA5yG XLlV2g8FsVxPbJ1MZifV9HcZE FyuzdfKl36qE5pDqMdVdC0LOp u J5FzaiF2RTDqrWAwWThsKRX8U 91xk1P1HCLrGHOnCHJ6eAA9iS 1hbGlnbjogbGVmdDsgdmVydGl j SXovTDyzG621YLYozFlwOmDvZ GluZyBEYXRlOiAgMDQvMjAvMj AyMzwvdGQ+OYPuUAP9pCgcRJB n cTYjECwkJn3lfOpesLkmDJ9uX LFbsndrSSWgwA9yBMNehKHzkO mpCR0oQPVexownx617GaWnIXZ 0 EARhxNHnU3HwsH8kXiClJOOzU FFcL5ZkeZQbEWjbC795KYquZa B2CQPjxwQoK3BiBGPsbKnyLpA 0 u0W3Tc1Ld2VhrelmG1KmwTJsH iTcIhquNPa6N7XhDuqorYO+PC 25ISRsVA66ECi7MCD0qKqgMVq i ZUWwB8CudQ9zPfUdHTQnDACuW yc+PHRhYmxlIHdpZHRoPScxMD VpEqZbyCkxDD0kNk5fQFOoEHC v kXffoTClBeEbj6fgWGWcCAptW J1ggScpX9GcbYV6VVAso5n0Uk 08L49xW7YziCA+DUCyaBR7oBV 0 oX7dOwLlTnX0YEluF201ZvGcv LYzRbkry3fya9eghKz6CtW4LL JheiOkhOpmXNY3j5WvAk53K02 s IHdpZHRoPSIxNSUiIHZhbGlnb h2lnB7mYi1+VGTueEY3cFB6xS 4zSyIuPpI2ZEpbY702UjKqzKM v Rrgag8onn9qojKn7ClJlZDGoa xRjdVhaDEZ4l9SxLb98A0AluI aqa4FpHbb1bz33fGQdo2E0nQO 9 T1TuYIHkhnorfGMcvZwiDH5lC KDoqueuIXIcbB1fSDDpN5q3Wu RaPtJ4GArmG3JnglG0OQKxyPW g WLMqoRBWeP9qqumkn2ftvkdxM oIfSZHfFJg8OZq2HRGpfWluTv ViFFW5AiO7GCU4gMDizM8kcZt n vuskdW5gYau+NWX7ePOvuCXCV J5tGauswKY+RLBmMFJ6bQgaRO vyMAVihE7yYWQaJ3r4JhYqSpN 1 ALlcL1QqpcC9DGCwkFVjSDFte PVWhJ4lwhuws0twipbyOpOzXF EoVDo4QSz6VSEixUokPaAaVVW 0 EfN4LDG1yAFieF3pkYolgfxkj G9wOyc+GkexqXjbJUO6BPx1N8 RyXeu0MWEmcWlnDI1lcQJrBZf u Vf6tvPzksFoqTS6bCLQjepabe 348MxIbn5jrGWLjbEVpSBlpRS I4C34fc8U8PPFmZRVpBRW0zEV 4 vG4guTwipunwqKMmbJeddeOov DbqDBprBUudL918SMDaoJkmUf SjRFi2R4YbQbr6URSabJhgGN2 n xLSoPEnxQo6oiIqoeHpjCN0xA OAmfryhi624AkQgc7kgYSHkfL NhDWivHMX5O83ux2H6BHXgOJC w UBT0hPM6vU7lkSoldxkxhLYsv XdyhtMmtTwiEYyaXYmnT275RL NwbPqjDlPksDo4P3OvOme2RYX z lMszWU6cvFZyKNmcTj5cmFnsd GleAC0qTYGvvzywf562QlRgp8 jrCIKkuSNtZFblDAQ7Q01en0S 6 DAIaCONgBPQ2pAW6hD5yhRwug jogbGVmdDsgdmVydGljYWwtYW ojD461AEWcxAgeEjBluVkmchQ g BFubITm7N4IvJmvmdAI+PC90Y LQnWD98bZRxfUVup9kgbGw4Fc OiDZPfHWB9yVxoGQttb0WpBLD t D94rvWZda5W4EVPbiDvecUNpG nHrnXE8uZ6nBNzrhmjoy9cjgu sfZduxm3ozjk68gA15K36sQAr p GJMvHZXlWUPbWQEqqXsvvm3ch G9wIi8+CTSouER9dCQ2qO8oCB NgVpS9NVsdL479AcKzkBAdTcz j f7iln1xtiGk3JmJ8ETRdjnJww ObeXYH7s2UdIm98W20bBJgjCQ PzDVQiUDYdDPPxlCxetk4igH7 w Ii8+EENrjDR8uZC8kR7iItDdD xX7YZftR102HeHyqFBmVhwkB3 7cX4BccGT+AQCmYgg0BVBskQf s XE6inKBdJCzdSa0vSTI8BwXrL mQeEMfmR6JeXPTifouqvwrsnR S1IPYpGAHczL79Yt3kvKirKPW w sFGFmN7qxuyhg1zhjtalTkBlQ HYlCRd9NTn1NYEipRooFaKjFQ C6PyY4UFQ5qXHczU0neVzfplr g rS4zD0YdVMPnfauvGm11dE4yK nCtSfV7ZNsrCtq+YDPCW2WDPG 1fCIsUE5xPDXGJFI24GD37vPT g s8B9fNX1V7CnRPRwwvwmcarqb AZ7XEZwZZPfyG25sAMiNFsnHx 0ew0T0s999JUOyFLYicS97Rz6 u hUnvDQFgnVDVyS2gslfeq2hfj bwkQzBzVEOdDZe6BKl9KEUzoC ihIrAfKMT7QgD3DRE0tGQclU7 h pAhfofsffU8xGpr+MDIvMDgvM Sq8FXenkSI+SKTqDVL2vVesKH qnFGQdrH4sRVVfY7h1YuAvMsM 1 NHcjE4ZqENWieiqvKp77tL5rT jFqNvL4JBofE0EopnJ5SPBmtU YnUAwuWQH4E38xv3I1ASOtZLP w JVS0sRY0rD7bpQbaxhqhwSVhu PerwpOmzOtiYZynUZqlX037SQ TdbAzaPbE0WGneJALkDE92JN6 8 bUJkr5S0rXU2D7DrBNEsdxlab gmdwFL3VTDhEXYxiH06hAQlWP biJd9to5T9r312MGZiUUKiqA3 7 Zc1exJadECDysHNIwG4dmuabw 1gbsgzxBiBcBVApALu4XJf0DG QvjJweUuThFOX1PcX6LYW8tEG h uD8aiGfgatpqiX6rKhc+RmVtY YfhKF63NJ75aQJgk7V3gBH7A5 KdJZLykimjvzngeGY2KCZxZXJ w jH45nAJjNYoxFm1mw9G5l075J MRiTLBubT87Ci4trRmbEYPonK RYpM1xgvmrm5czsxfbRlViNVE w TMe3IQi4DXHcjBhyMeDuYBM2W iF7MMF5aZPioN6lgShtdfgrwV 9wOyc+W4D0oGC0qQBkpZshaGG + ZP76xv00R9SbOmcrMty8RQYeG LT5wRC3gG5dHSAzVOxrf8N5eH W0C7LuenSkoe8em9hxERLdHUs g F16esCIza6J9PXIqvNM0JCMfc PmyEuUjfX57Oca+PGNvbGdyb3 BpAytcv0cwj5nxdRy2ZhDcGKF g djCmvRutZQB0b3IzTx65Z16uI HdpZHRoPSIzMCUiIHZhbGlnbj 2umY1pVx8+LHHvpJE5tSG8wB5 i SfVkUhK5EIrwN854QnNdkSUaK yemj6bsi3yaaSd1EsWnWRZfdp YzcZvsDJK6q3HhDm68R9BpwGn y h7OuIbx5if66zBGbs2V2lMK4W 6CxVETojjeglIWzuMlxRR4tDJ AbsklcJLUfxV3cDJIiG8y5EuT w OvO1XSroJ7RhxoR5MJTayYPpV FRuvNOLaB8gkcvel1bwgtotKy VyILDdNBe9GNa8URKccXwwBsD s SST3HhM2KBR7nWFmaF9xySila gzjeI6vWjl+PQb2w7ghoDWyKJ 3mrKN6BT40ZW10qVAwd4X6sVE 9 E2HwJPXdyzhszpirmLK7HBNoY PTpaM18Ep0jzHscPq9nWQPgNY Q7GHXagUApX9AtwA7wLaElDRH w KWTaA5DaaMBaUVrxW288OOisZ zB5KPHdpsIpS8SiMQFkiQxpIp P0b4U7Bx9RON69YB95MH09yUQ g e4R3uBC6X4DvMFQsptsbrntyz DT8TFHbHVBfrY34El5xsDeiQv 4mMFLpQDV1IMFqrOMnV5JbyZ9 y IwOtZRIrPQPyV1RtiDCwXIghD 875TZtbBzS8ABViwoFpR4UfZA IchWemKrE2l3U2Up0VSs48NK5 0 MI12wFHvh7K1lZM1U3YfFUYrt kbhvpmqzIO4JLUhIBRqsD34Sy 7naCffVe6iHLVpAZI5JXRrbEJ z B0FxiL7jSgGbVNBpBRVzC7Sbf TPnLUabH848EJtyZhV2ONAuci FsD4FcVPQjgQgjAeI7v8O8Kv3 Q SJgnmqe9A8YfBbukrSY+PC90Y EUyNE85bNHxcMLib0qfzYg6Le VhLDNeHXS3bCawXUwel8VoKPT t X74xaHRl (more content not included)... [facility] Coding Summary.on 08-03-2022 Coding Summary. CD:424049Yghj67NYz8a Ww+PG hlYWQ+DA4ZOOVeV98scDBuuO9 hD9GZDXiXCfyfEGTUSUiEKmOz itIpPV1fsNZlRMGq IC8+AC2eDSPsHbgemQHqy1F9g BP4U68ucc3hTIarsNB1NEKzTe Civocfo6vecIn2UHrkNsnnKtN t RPDjiI87NLH8iR86Fm83oPCog KFrj1aorBz6PtTjBQSqFND0rA bcXQoif1DpXKFbJ96cfMIpp7W 6 KXIfuLdzeBDwSwTxlRI3tS3cE Rclvmmbk2wlafblRis6gx80tD Jjb8K6eWY0J6EyouV7JQNjkAP g EkrejBVYuC1grobmr8exqzdqY sCdBJPjSOw7EXz9AITbhXuqZp YdBB85TCD2AGTnltWwX2TrVZZ s cSwjUiQ8d3H1Qm6MM8IOCxzbX 1VNTUFSWTwvdGQ+YU44nj98W8 LjOizmHvh9LTFgGAO5yEF0qS5 n KUAuAXfgb6C0fZL2B1EhzqMfs d0av1osOIYpNAvhL57mmJIiq7 G8OLEswMF5OSEwpUjfQiUyvM6 3 Oyc+OQFgtFbcv7VsHklvw4nrp 6nywQo5KebxWYTreoAffTxpXD N4x6TkQu1nPTOnzLM2sXZ5gP4 i TtAeVuS7YXknB737GaUdoETlY tnpY91mY3KgqHV+EBAkXod1FV KbfKrpUW5jZ1CuJJHpcnhqbKD m rOmmOY9yOFLsebqeUWPebZ8uO MQgD7c9DuXjVfP1VIhjW3TsQF BwdpqfCb18bT3pTrXtPnI6LLy u S2PzgcA8XJZguIOtMFujAFA0X 10bc7A5OCBrGMCyHQH9aKD9rU 1hbGlnbjogbGVmdDsgdmVydGl j KYdrTUgaE945ECJuiWpnMxWmY GluZyBEYXRlOiAgMDQvMTkvMj AyMzwvdGQ+CKSvGHD6vTgqIGR n xAKyOIucEo0pvVfnxPuiZD9lT TWiyhluJRUciS1xVCRxfVYcsL fnGX6gVBWwquyiy923JbRyBKD 0 YCFrdRVsJ2IggT0uZnMcGQYiK FYbK7AjbSMhKNbpV940HDtrSl D5XTIxctMoY9UkRRFzqKayZkF 0 e1Y1Yl2Ak5BnqthdV1SxuUSlN iKdLxxdAHt7I9AhHjuduEP+PC 27GSPvVQ73VOm0ADN9yYlyFAo i NAEiB3UdrO2xQmVdQFVjXNJwG yc+PHRhYmxlIHdpZHRoPScxMD UbTsSheGhxDI8vAu9yNFBjOGD v fMayjMHzJdKzm3rfBRFuZHqeR B1oeMruX2FvcKE7QZMvo7i5Rp 95M65qQ3TngEF+OMEemJL9lLJ 0 aO8xOeTcEoP9LBikN635HvFzc HGoYlwia3zzs9cncOh5AhU1BO WjubMijLnqLQC2g2EnTt84S94 s IHdpZHRoPSIxNSUiIHZhbGlnb u2omH1iDa8+LZMhaYH3aEK2tL 2fLjBkBaV8TNmrI112SvMlzHJ v Ofmsp0bvg9lwuLi8IgIgDXSpk iGmnYbfWXY4x3NiTz15O6MvzY sgm5DrIuu9eg26yDYnb6M8gPP 9 V9MtGRZttleugZIhdRpnNF2pV WQrfxjjTFDqrH6lXTHwU0z0Eh CqPpE9EEcqY0AgnhQ2DVKtlBQ g TTWnjJOLhV2xmzqud6ybaghiJ iHzPVPoLVf7IFo0SKOjqTwjYj CrTOZ3VhF1LYT5gOLehL0voMh n qtkqtU3yVid+JHK8nILtgZDWO F0oMwiesUU+QWCrLTE2fKquUZ yqCEXndR3gTENbU0p7OlZwGqS 1 QTumQ8IssuY5HUKnnRJwBHEff XTUcL6xjtvmj8pftfnyCaNiDC LxSUr0GBi7XSLikCukKwDpNKB 0 DcE8WDO6aIIypU5azGzohxivt G9wOyc+BrahvLkkDXQ7TZc2R3 XuCob8ZXCggTtsBJ0lbSWuGMn u Bn3soFkpqOplLS6lIGOyopmds 747HqGqz5zxXFYynUZwMFfbIQ O5T87oz0Z4ADSzJYHqADN8gQH 4 bA1kdTfdzeqvpVZgvPobsaCbn JejFSuuPZuoJ560NQPfoMewPl OeDXe9U8KwZvr4HXJvfSynEI1 n hQIeBUtgWh0peQjyqJnkZF3gN QSqzunfw583ZeTwz6qnUUZumW SgPQzsVFQ8K09wq2E4LYNvVAU w IWI3vLZ8iF2rtKlqvkcuhARms TgkzfItcQpzMFatMTqnH078XV TioEcjZgHraZg5N9CjBxo4FWV z oRyxEE2vmHYvMKnfCn7xlBzka ZvvZO9vWMGhadwyq906ZiOna7 deLDOtiJXxUYwrSQW5L78sk5H 6 ZKHzPVOqFEA0qQW7nW3ieImeu jogbGVmdDsgdmVydGljYWwtYW hiA680FBPqrCheZnPzeXpwknA g ACgrXTc1C2VuJjbysHW+PC90Y TYyJS06mGZswVTmh1mbfVy8Df GlQFKwEUK7bYchCFvvr2SdBQA t I79dlQLbx4A2AHUceFvvbCWzX wWchJK2iO8gRYoadjbnz3bjlb ohHfezy7npzd83cC23G65nNHp p PNNyCQLpHMXkZUUyjGijul6rw G9wIi8+DWFnpEF6tEL6uY9eTI NtKmE5UMvbP226GkQcbLQpNit j e8vbn5peoNm2ZlN0JFYegrAhx UnuIUZ9s7RdAs51R57kYZipEB JiAVZyXBPmWPUneWguiu1okI9 w Ii8+QXZgcAS0aQS4zF8aLwYpQ fH4YWhzL680DgNylVPuPydxH2 0vZ0XumHE+POZhAqp9ICDymJs s GQ5moKMsBXxxUs5oWEX1QkWaL bKpIKukD6ZgOANpinjkgeehnR J2BZHhFNXjdI69Yq7ywUgpRLX w cDZTcI9wioqcf2ddhqjmRyCbU FRoYOb9YEv8KCKigDuiPqElPO X1UrY7DDB5uCUkyI5grDjveix g sS9uP6FvNVKpymdsPp21vQ8tS dImCaY4WYcbKtv+DDUBT3GDUT 6qXNxDE9wIZVPITW44GK20wND g p9W1zNA6B5OdVEKmnmhneihkj CN3SIXsVITffT96iJKaZJgeXa 6zv8P2m257JIAnDFUstD31Fu5 u zDjlUTBgwYFUoK5firpqb9uzm yupCzCsVHJaFMg9PPn4MWOzpD kdIjPxUJP1DzM4ZSB5eWEkzR7 h xZxbbvbalP5oNig+MDIvMDgvM Tn8QAdmhBV+GINxPOF3uCgzGN ztGBAeeJ9sPDFoN0e0ZwJtKoC 1 AKhqI1MsWDLbvsgjDg87yN5qY pLmNqW6KAawG4DeyuW3BQLbpP McBSnvZGP7M46hk2V9KRAiIUV w VLW1bLA1qJ3hsBvhbmobpSFll LbrdrEysUsuFFxdXZhxR437VL FaqQzhReB4DYocPGReUZ80RK6 8 nNRut7O6zKS7S1YeVOCrxxsic puwzJT4TRYxTBEtyJ14qOYoLB hcBu5cg5K9l738PDAwOIStmM0 7 Gm7wgCnbEBClgLQYyK1adlylr 7jnlokhInZeIGUmVHe9ZHu2XI TmyHadOfLrDVO3EjA9VWT8vSR h sQ2qjWkffcuufZ6dPgw+RmVtY GuwFR62NL27bAWtk6K8lYK9J2 JqDCIbjowefractRI2FUUgIBY w kX14rMGiVIvtNg9iu9X8k983U BXmQTRagN37Ny0liKzdUAOavI WAbP0ifnszf2bupbwfKpIdRNV w HMh8WYr6GIDipUhoHlCjHNU0I wH0AIL2gUNieW3pjPbxmhxmqT 9wOyc+Q3P5vXO9wRIpjYlmkXZ + HY05qi05V6RvJubdOvh9YEIdN DD5lHU0zM5fVVUsKZqlp2L8pY B6Y3PwuzDfwn8rb0wdIZIiYSp g I45zvHGss4O3VHPciHC6EPAfh PelYzRduC74Kyj+PGNvbGdyb3 BjNvtod9ojw0otuAw1KfCtGCD g wwAfhErpSHA9m5AuGa00P60bZ HdpZHRoPSIzMCUiIHZhbGlnbj 6ulL9vDx1+YEQtfSY9hIA2aR8 i FeDlLgF7PZuwH935GgUdjCPaM fqko0xfs7rkpKl6BtReJWRjpv NaqFajVVP7t0DkCf90V1YpeSt y p8TmSdc2al21gAJtq9F3fZI6J 4LcSGUgxrxwgAEysXafFJ0qKY GusrvxNRMpiV0eIZHpA6j4FmI w NbF4MBrnJ2QosjH4GXDvqKCfC XRjmPIOsV4fldgbh7kqjspnCw YiOQHpRBp8EDv6ESNpdIlvSsV s ILL9GwS8BEP6qRPzhP2udOvpd ixxyO2vXau+ZUh6w4oaoLJvPC 3brWX6HY57KU89yPRmm6Y3gUW 9 J8TwDAXqlmixhltwnCS1HQRjD GAhwH93Um2tpEomDz4vGQTcWM L7RTPdvNRcJ7FajY6kIkOqWQW w ZJXmI5MilRRrROdxB617GGspC fP9KINulbLvT9UkNHSsvJmgLz L4x1E4Gu7OND08XR98WD49uQF g b5U2gPK1E3MkWEXdisrozmrua IP2WPHvWPLcbV40Bz4bnOsfXu 3cNYByDAY7BRRlpJPcW8TdkQ3 y RxDjBGXlUVFwI7KmuDFbUBreE 467QHzfBnH9XUGvdyJkV4LsRN TeiEvzIsX9p7D0Hd1VQw62AT8 0 OG52hHLzr0U5yMF1V1HeUIVox fjsfcrhtFT5NSXnEQDeoD66Rf 2kiMmqNo2pNGMxWVJ1OBYmaZM z O0QefF7yLiGvORSnYUEvU6Wqk HPmTXvaO844LPskRaC3LVYktc MpM2FySJNtzSehPjC8d0C5Gx7 Q LEymiae5A4NgTmehwTQ+PC90Y ZWuSX82sGBpfUNed7bhwCn9Nr OrSIAhRGB5oShjWHuhf3BuETZ t Y75orAZa (more content not included)... Normal [facility] Provider Letter FTon 08-02 Provider Letter [facility] August 02, 2022 BERENICE SANTOS [id number] [address] BERENICE SANTOS 1995 Dear Berenice , We have been trying to reach you with no success. It is important that you return our call regarding your ultrasound upon receiving this letter. Also, at the time of your call, please provide us with your current information. Thank you for your prompt attention to this matter. Sincerely, [facility] [phone] Normal [facility] MRI Spine Lumbar w/o Contras ton [...] by: WHITNEY Technologist: SHELBY Technical Comments None [facility] Consent for Treatmenton 07-16 Consent for Treatment [id number]#1.00CD:12 7 [facility] Consent for Treatment [id number]#1.00CD:12 7 [facility] RAD - MRI Screening Formon 0 07-29-2022 RAD - MRI Screening Form [id number]#1.00CD:1 27 [facility] US Gallbladderon 07-29-2022 US Gallbladder Exam [...] MD Transcribed by: WHITNEY Technologist: CHLOÉ Gould [facility] Ambulatory Visit Summaryon 0 07-27-2022 Ambulatory [...] for future visit, Lab Collect, Epigastric pain [facility] Consent for Procedure/Surger yon 07-27-2022 Consent for Procedure/Surgery [id number]#1.00CD:12 7 Normal [facility] Gastroenterology Office/Clin ic Noteon 07-27-2022 Gastroenterology [...] was previously evaluated in the ED at [facility] 03/23/22 and note indicated patient with blood [...] follow instructions per packaging and physician's handout, [employer], 157, (more content not included)... Normal [facility] Comment on above: Result Comment: Elec [...] Follow these instructions at home: ? Take yook-qfb-kocxcaa and prescription medicines only as told by [...] the cause of the bleeding. ? Take apda-mpm-yqamkvk and prescription medicines only as told by your health care provider. ? Keep all follow-up visits as told by your health care provider. This is important. ? Get help right away if your bleeding increases, your symptoms are getting worse, or you have new symptoms. (more content not included)... [facility] Physician Orderon 07-25-2022 Physician Order [id number]#1.00CD:1 27 [facility] Pre-Certification Formon Pre-Certification Form [id number]#1.00CD:1 27 [facility] Coding Summary.on 07-08-2022 Coding Summary. CD:[id number] Ww+PG hlYWQ+UF4AEPDmE52glVWxfE1 zW0CUMGjXGjvrGYUTFBoPBtDc ekYjSI4ahKSyJTQq IC8+QZ4yUIStCbdvbNIhk0D8y RT5Q11cnk4wBXwlzTE4FEHfYb Ghdlujz9sotPd3TVgdQhkrLxL t NJNtxT56VJD5eC07Gw73bAPnt RLif8gbmGi1ScBeKYQbFAI0fU iwUCqsf7YpEWIvB18zgCFny6E 6 APFsgFhnuPZoFxAdeRC9jX0wF Sztfwcpo3tptjyiLvf7ge22eX Eah4N0gIH6S3LyxqF7EPCioYZ g IhefmXQMvX5gstnav0zcdapqH eRsFMBwYXj2XBn8KCCcyHjgYz RdJR79MBV9XFIbrvKeY0YnCWU s eSfcMaG4n9M8Ti3IY8BXTpjvK 1VNTUFSWTwvdGQ+XT23xy41S0 XrFnszXas7KLJbCSC0yRR7pZ4 n MKFyCZrxq8T0zOK8N8AkxsMuc h7ph7mvAOKvXOfeE48cnDChz2 U4YLSdjMF0PPRioEkvUgHaoP3 3 Oyc+IPFuqApqi7YvSgguv9siv 8aozIt4HvalZHBbwmNqnAilQP A1m0AcPd3wGSFnaRA7wLO3vY0 i PrCwNbH3TJtsQ928ZbZkoAAiM yzjG50lT5RoaWD+SPHhZmc8HU VfiErbEX5rL4TzVNUlficxqOA m pVbkNT3lHZMymuclIUBvkD9cP QWvE0o4LsXcXfY2AHohU3GwBL YgicrzZa29zQ4nSwVhHmY2TUv u J9ShifR0QJWwrDOpSNcqRYL4Q 69xz8T9EURkGYYmMVO4cTJ7yH 1hbGlnbjogbGVmdDsgdmVydGl j VHhzACzkU767RCJabBolJdUbX GluZyBEYXRlOiAgMDMvMjQvMj AyMzwvdGQ+LYKmXLD4rUluHAO n gACoMCaoKe3ckKeuqUvxQT6iZ OQiqtgiJXSonV1zHMVxnTPhpX ciNJ6wQECzjajoz958ZzAxADE 0 BJJjwMWqC8OirF8vFoUeAWEpL KZjI3MfjWKmVIdlL302QHoaAd Z2CVUyolBrG1EdDBVxpYckKvA 0 l6N1Wc5Ve9BzdvgjK8XyhBQkB cKcHpzaZBp6M8VbQioyyPQ+PC 98WITrCW46TQp2SKK3fFffOLs i KYLpV0WooE4lHaFyBCUsWMQfZ yc+PHRhYmxlIHdpZHRoPScxMD DdWwCxeTbcMX8xGc6eVPZyAUX v rNkahCPhPpHqt7dnAJSkDSvgW C1dcDfuS8PslKG4ORSvh4l8De 25K94jH4BkxOX+UBEabEL8lQN 0 wJ1qPzRbQtU2CQufS253WpIew KSmJhqey2amm6wpoEq0MbI4CD QblwIjeRdjIIN5w6DzYj44M02 s IHdpZHRoPSIxNSUiIHZhbGlnb n5yyO5uCk1+YBJuvQF3iEZ4gV 1hYbKyUvX2YOjbK307BiGeoMI v Ekafa2yun0iksOz2AvVyLMBpj xYeqWbiLCF0q3SrZh17B2KhzY aro5TlOwo4nu37lBAar4W7tSL 9 W0FuPGPxcdauuJYawOioVA1pE ZRvyhkvGGYdgF4kPHYeJ9y5Yk KpMmZ1TNcwO9OuumP2YUKqdBR g ZWFiyUNAkF6jaulzm4pthcziP sDgSTXyVFp9PCv3XRCsiNjlYy RoUTC1UeN4XAN6yCAxsM8jdFe n sjepkA8gMcu+UMY3eKLpoJPVC M5pRlqoiNT+FEZmIBB6cUwmEO suLWVltX4bRCLkB5l6QnRdHxR 1 YSmhJ8MncnY3KAPvwHOxBEMht ARKjS8txrmqv3nyihgjEyWwPA UpLFt7DJr5CWFidKrjFhTtJVC 0 VdU7RPY0bDRsnC5qcTbgezzuh G9wOyc+PembhGziZAC9KLr1N9 GqAep0BQEgxTleAF2xbOXuCYr u Ij3hlSekdNftMY7vFEOpeitsh 470DgWvs0rdRUUszOHjQXqpCY W3D98mz0H7QVZfPVPtRFM3lDB 4 aN5ttAyrzsyntDHjsQsmhcWcj JzuIYojLSwkE907BOFcfIhcYy MoZUf5W3WzMca8QLBurAdkRO1 n yFDeYNgpLf9lpLpaiJpoKD0mP IZpbevkq918PtHnr5irWCZteO QiOBffLJQ8P88vi6K2SYMwVAH w SQB1iLZ7cB7vhGquszstaUXoa BhisdDdyIzvFAqnMLlwJ678PR LieEoePnVgqDz8V6DkNcg9UOJ z wSjbYB4azXYyOTluFh4auQmtt QtsTQ8iKDKxdvarl417VpVjk2 kwVPZebVIoUOacJZL8H27rn9M 6 RHTsTAQlUQO4sSF0jQ7mpOduo jogbGVmdDsgdmVydGljYWwtYW wtH737YLNczOaeIdRgbLjpvwH g QPfeZXw0A9CkPlrvsQE+PC90Y XGoJW40kYYigDWsf0gcpKu2Ug ZkUHZpOND5eCblTYrnr8UcXSW t O81ddFSel1Q5NZGhbWxhoDPkG wGmxXX6mZ8yDHplqfqmm5gkbu gcGzefz7zfdo60lG27K64aUUn p JLHuXNUoXCBvCDQrnOdsgd7un G9wIi8+FCGbbTZ3yOZ0jG3cRN BvVhE4QVkyH907IgMqfTDfVac j f0ify9idrOi7OsS4HNJrhaNgo SkxURN4n6FwTu45P03mUBgpRZ HjYIStSIBsZYAzfUzqya6tcP4 w Ii8+FZFyxZJ0sXQ0tJ2uFhNrT uB8ULamC530OqHxmIOhKjfoA9 6cN5FmbVX+ZFNpIby1KKDkhYp s HK5twOVsBClnQk2oJWU7IkEfD xWqPBlrH8KtNAAzctlttjhqqE F3RGJnHRMddQ16Ou7asGjuARC w tMKYhN9vqadtz3stituyNrRbU XNbMUv6SZn6GRHtdFzkKyYkIQ X1NnM7AHU3rECtiH2shAvovlb g qA8iS5CxGTDihamlTl31dG7sU sDdWlH5PNypFdc+VHUBT2ITCH 5mLXdRW6wPRMOIPV45SR60nTK g l4Z2lWT5Y1XhGOLireianfjeh XK4BQRuEKOrbC90jPYaLPbiLq 8zt8Q1k980EZZhVUNszD84Jt2 u eZfeEKPcgTVNjN5niaysk4roq crnHgOoIMDfITk9ZBi0VXZzwX odWkKjMVI7ArR4GEQ8jHUwuZ4 h oRomougkiE7jXtq+MDIvMDgvM Pa3KMrgaOX+OQOoVYN9kRrkAD qqAPDknG5gEJGfU5h0NsIcCkD 1 NXmmB9DvNMVqsfvzLh71bX8uL rIvFtJ9OOhnL2HutyK8AESddP NvKBpqWQQ5M35nm4C5TIRlKSG w LTI5dJX1vT2vwLujjoupfQIwg NvdayPaxNiiPTauYLamD453AW BkqHrpTiI5TQzzQADeNL41VT2 8 wXFtg6A5uKB9B8JdSAEtfufei ohwsMZ8ZJSjKRFcsG89lCXyVM aaXh0he3V5n667OKZwCQPrqR5 7 Dd1ymXrkLVVrlNLMoJ9pzghqw 9ixakhgCmUeOBHkWYa6OZj0IO HyiAfsRuVgXZS3XdR9HLV2dKJ h iV5csSvzuaxhlN8cZiq+RmVtY CkhNM22VK12uLOdg6D2oZI5O3 QgHDEnsitwnvgfwOK8MZZuRKA w pT45kPBsPRktVm5ab0E3y286V IEfLEVsqP13Rw8pzGkwCRBjlX QBfX2uhekjm7ciorpyVtYkEWU w VTq5PKg6QKDkmHrqPzUsTZI2P yR9ZQW4uBMbwB7lkPvhmqyvvM 9wOyc+T9N3lFR2gHTulAagaWB + XX69gb25N3VmUvjbYto3TIYzI BJ3hOB7fH0kGOQwMFhuq4Z2oJ E3U4HcwgGchq8cc3taJWUsLBu g E85wiSRlt7G0FZRycIE8VDAgt WzjCfNuyG36Lfj+PGNvbGdyb3 EiOdcgq2wpd4umsUd2QoGiUTY g ypNvbFnfVEJ3t9DwZp82G27zH HdpZHRoPSIzMCUiIHZhbGlnbj 7hbK5mXd7+XAYzoDX9aZW9fK2 i AkXeElP3CFujX482LxHwaSHdM kdkj8ios9orkYg5WtJaTNOikm ExbDeiFSQ4m6UnBr58P9TgqWj y v9MzCap4ci64xMMep7E3gOV5Y 2KxHWQqecjqnLQhmVlaNU4bOQ BpqfhyMWXcuX5zIZZzG1h6EhU w AxP0QZigZ6LggtD6ZEBycYYyM WTctIFZoH9fnuyth3rcwswwCq AvZPTiXBu9UEi5QJUewIdyYpT s IMY8BqE5KGW9oSLsrN7siXxlm aaveP3nOyq+NLs4g2vobWUmUT 9muUA8PO17KE49iLNgg4K1tWE 9 J8ViBZPfecrnsehqcFT4BSWsH UEyxB30Pd0bnXuqZu8kQVVaPI M9FNTvrOWmP4ZpwH0yXgLuYPK w FAZyP5ZmfKDrMXjaQ696MRyqT vS9LVJykwGtW5FmLRJvxYcoOe B3b3R4Vb1ZFF62XG29KK73iQI g u2J8hYE7J4HwSJIdblqmohpys EO1LAPoNOZiiK22Rj6twNxdUu 9oMIThBAB5XZItrDKmU8JiwC6 y QlDqTRUmZOEhS2CfiGBuSTxfV 021TQkpRaL1UBNkvgChL6UbVJ LluDipMmW3i6O0Sb6VUu64NE0 0 SC89eXTkb8U6zRU5M9EuCMJyq aehtyyfcYA2PTIoNKIuyS79Pj 9dqLfxLe2cXJBrFYL5PXEkcVM z H8WtgI5aLhQqBQYfKQFvH5Pwp AYuBFbqG705ROlvZlO0HCRscu LiE9MdNRFanOzoPkN6k8T6Jq5 Q WVkyqcv0U0DeVzmohPL+PC90Y SLjBG86yWZxhQHli8gxdOc2Ur JqIMLdGWP2fAdkDNbyu0VcKTG t Y88arPFb (more content not included)... Normal [facility] Consent for Treatmenton 06-15 Consent for Treatment [id number]#[id number]:12 7 Normal [facility] Physician Orderon 07-02-2022 Physician Order [id number]#1.00CD:1 27 Normal [facility] XR Spine Lumbosacral Minimum 4 Viewson [...] mGy = na DAP = na Normal [facility] Coding Summary.on 03-25-2022 Coding Summary. CD:[id number] Gh0bW w+PGhlYWQ+JS4UOFTtH41uuDY oaK1TW4mZVS5XBIZADMYONR5T KM5ilGU1CSprC9UxibCv GiaisDDwNT72DXu5FOH7zSuqN RxclN0cbOMbL9d7YtEqCZ47oR 84WVanIUBtMmI4IfAztvqcbBT y Q9xrZiMkhYHnPmr+PHRhYmxlI HdpZHRoPScxMDAlJyBzdHlsZT 5eCk7wEYYbTMNaiFtwsNUuOvL j x5xdCVEqZJklQQ4pwDisS2Eiv EE0FIJbm3p5Mi67gPW+PHRkIH M1gAruKLrhp056BzNmu5uaFKM 3 rGCiRZssQHA5Y44ze1H4FLPxN XSyBDH1cXO2rJ9xjGtxbkjkC6 LycTFrJyW7WVR2vKIuwO5enPz n eiibwV9tPlg+N68XXI7IACFUI Y4SBkw7E6FkDbcvlFO+PC90YW NnLF11wRRaxBDqf9ulhHe0CzX w HXKvGWE9bCecHNmoy1CrQJZmP 86ceXRer5Z9BXDauOhpvRHzFf BksSJ8rQ9gKAafykhnj4aauxa n Uyiaz2ttak46uZ98E89bAFsmB BMwFZE0SVRaCDDglJgfgj3ioF 9wIi8+EFxwj7vkh5fnrBe3EpL w BXKsfrMdmSdsOOQ1n0YmPz80G 7RiaSdoc0MtPtv3jm83vXEfa8 H2fXP4RLygITUxqW0nDLwyMzW 6 LUHvMzCxtQ90sHMpDCzdYw6yq JwpsPhgQT3fLVOlknydCSJbvJ 2kSPObnPMolUjbJQ4lDKJqptv m b550GlTwUHB5LOEuiAWeH0Qwa E4hPbOvQHAyQCEbI6HmxCBaTD pmD443LNvlHdL8RRQmnxFoE0O s BQKkaHilLdI9i7R5Ol1Pj0Gau yovWVQ7ZUcqEZOlOoJ8KcKpTa S3K4QeMpy4DIBbsOcrXH6rP6S h YVBzxixgiopvdJU8DBQzSJVkw M28sCRsTVavVl3ib3Y4p057KS CaXFWrzM57Va3ivVzgNESlzNC U rU2xtzxwz9eozriaNxSdCJAjB Tt2ADi7INAdnBiaQrWjCNC9Bn N8QEG2yCMuoP3gzRsjdtkktA2 w Oyc+Y51ljB2lQHI2HRL1lrciG MYiezRcSU50SN71Z3TtYpryeE FibGU+RGGcxsOvfYciMJ3jRfE j k6qei1JjTGalO4VvECXyQPxkV de1BVWeGJK6oAB9nJ5eZXWkCZ wqd0Y4zIO8T6JhuyJiux6qz7u s CIIjJCnoM63ksJUuw2C9JARzw AJ0FXRzfJinWuZeyQ04Iue+PG OcoPjfk1HvPylrl3ouq2encMf 9 UzEdFJWgvgGeqGmjLWO9y3MbD j33C09yJZypJATwMNNvTYZrKK VakTrohh7zwQ0jAj6+PGNvbCB 3 bBG0uS3rZJQcTjU1JDqpA085G eUdfRBdGttsq6lfv8dktXt1Ce XrANBcegZdnWffBPJ4h0TwEn9 8 A49tZUqnKRVuWIHcPJYsINLry Byldh9hgE9hZb8+QN2ay5knfo 60vD63dTC+KNItKFV0bSpjJJb w LJZuuC7sIWqvWgQ3GYYvXzKdo T08tAJdPJcqXe4umKoxxFdxAO 1hADRbrugba238ZuWmr7loXGG w lVSuEBrpUKR6Y64fn8P9RMZvM GGdIFT5sWM0dN2onYjdeptxwC HgtMlqfkAjwZnvNKgwZVvkL27 6 IHRvcDsnPlBhdGllbnQgTmFtZ Nc3T7WsCou2CDTruQlmMS4vgW RmVXgpHf0pxVyivAzzYT4aPVP p jhgpx836IeXqe5dlYUUwyONyI EdtTSJ3Y82iv7S4PHRbFDHkBL Z4qHO4uC9srUgtqikepLGayBy g msXotPclOWnxNUoeI356NDByh IbzOpPxqpVtJYCveDY8DN65OS 61dYGav2T9uIA0V0ByVLYiwlr t wxgnoGA3HMNhVBKnvL11Kj3ry ZuhEt4wMLYjQKI1YUPktIZvI7 FyiU6vKgGkRGOmBOQxI6PokPO t IQhdO009OBjrDjD2TPTnxsRrM 0TuXXFwkUmhIqM8z9F4Zx2WY2 U5JV74HK14sIMbo4S9kCE0R2U h LZXzznvaghypbVV1SVIeWYCck D89Vg1bpWaeJk9vDPNgNIW3XI EzvVDjI3LqzS3cCfKzPCFoGXC w U8XryRVnQCixD988LVzpNeD9Q DJihtQpY3RfZDBidQasAdV6j0 Q0Au4KGMm9WI37JQ94sCJqf7N 5 gER5J9VwHYNksdbuedlehCI1P XNoXFBjbS95Sf6smHneZm6aOC TvAWJ6TPVeeYVeK1WdoP3qJbP j NNYjHDWtW4GxoMHdIFizC192D UyaMtV6PEBesfHqE6FnOSNiuL vkNmS8c8S8Ay0MUQDeGS94SBW 5 wAY1PS46YP35N6DuHocfuQZij +PHRhYmxlIHdpZHRoPScxMD OxZsIszBbfFN0fRa5xYVPcZFQ v fXyfsXQwJbBse4rxEGQdUFnmM W6bgVvqH6VgtRN7WRQyx1i2Ax 81Y02kS5TdrXG+JGZdeAM4cUN 0 hI5dYxSoJxJ3VNidO219CcIvc IOcAvmsk5bxb8nwtCy7HwF6EU RgpgJdgNzyNNV5a0OnHz04G46 s IHdpZHRoPSIxNSUiIHZhbGlnb b3hcX8tGk4+TDChgOT9yQU8kG 8zCzFgAaU2NMisP035UfBcuPA v Kszgp4lng6vqfMo0AfBaAJPgt hShhRedFBE6a9GtSu30S7WreL ueq7LqMpt4cv87qVPkj8U1xNR 9 M0AzFTTterthaPEtnIlgVG6gJ JJfynmbGXXlvR3zGIHpN0l4Hc FpYlN3CJshW2LecyD8PPTexIB g IDymAJI0K83yi3W8TZLoSPBxL UN9sQD7yZ0qaXkbbwhfkUYbeM gikxPoiGisMHdwHKxhA274OJP v rNmqITFpbD5rHCLhdZKpfQvcT Y0hKTGpyaixZxQVI7IGKFsFCM BMRVNMSUUgQTwvdGQ+PHRkIHN 0 wVpmARaeBBQxsW8xUURoM1g7D fRzHsS7VKxjU1OkWKVwkdazXq 75sK8aZuPtTdG6QWieE1IclcM 6 COQkrNXrAHxvKIQ2U58vn4G5B MRhTNHkWKA8kXM0aT5pzEohys ogbGVmdDsgdmVydGljYWwtYWx p K139YJYbrUfhBnLmCxD1IeB4W ZP7R6FfYhj8FWEcgIopXP6azV MnAWfzAy6xuOafyBluWD4mSSP p drmdNLOzfJ4gQEFupVOpuKylK I8vGFUjxgqkt471PsEmHEY4RX XihRZyZ1SwfS9wEaVzYPCsVCA w G9AocKBoXVksT702YHkkKmZ3P AMlewVxB8PkRDDysGfnVxE2x4 T0Rf9bDQLKALFwydlvwZB+PHR k GKJ5wPurEHmrFYTyuX0uMEEgJ 0f1MqIvKoE1TIvzS5CmWBIvbi tcDr06lX8iEdWgZfI4ETmmM8S v qsP1JPNrjXTqWBvsCMB5P98fd 9R4TERaNIYwDDC7rDN1xG7xaZ lnbjogbGVmdDsgdmVydGljYWw t NCfnK393YNIjlJfgMjKloBStA TwvdGQ+URHkZEQ4kAqiAHmyXA BsbO2lAJCmB8a7OtErZhK5WLm u X1OiPPRpbutrYv14gN9oQiCjX gL1OMcuV1XyvgP3MWZrxDMjGJ fwMFI8G76ly1N4WSUfXNMjLVY 7 nCM8eG0ohNnodkcarNJmtJbfx sNmaSsoQUedVLnjP815KSOwqF kiTwOeAHDzRY6qsVjtpTF+PC9 0 aw71G5NdBcqbBdh8UPPwFGT6z EL2rE3oJVSmTFxkg9S0xKD1T4 GuaiImcj3kv7nhDTTwHUbpH50 s lSLrp4F5FRYyzOH1XLQbnYksP uGnyW29Zig+TDEosFckv6YfAm gjj2trz2gabWf6NiPsQGGfflE s pEhjWUB3g9WpWc68L85pQEnjT XPkJXZqJXBdPQHaaLisof0dtR 9wIi8+HTXnwVJ7wQT3nI6nIeW l UhB3CChvW287BkLuzLWxEokrq 3rel4quvHa6VoRpVHRklyAfdJ xhTCC2y7UnTz69B1KbdNgrn3F w Wvf6pe72jHMir9K4zSF0H0JaP DSetshizSUzeYpnFO6aYGOlby ehIPAdzI6fVGRhR9y1LyMhUoE 1 MHopD3YovmO4ECTrzSYrMYGar COLhP2unebwe7qfpmymXnXhNP ZmBLh8PVu1NKNsaXxaLnLeRRY 0 CfO5URM3vYWeeM0sqXicftqpp G9wOyc+RNi8v1kipOWbDV2jhW F2WF36OM72jEZvy2R7hMQ2S0P h XWLjshrbijkycYH8YMWoUUTnh Y49Fj2ebRjxKt8mSOTbFYM8AS AmcGTuA1EkwM9mNdAuOKNcGDE w R2OkrOTtDZxwV451FUboXzL8Q RUcckRbJ7DfCZZuuImlFhW4y6 U3Jv3FEV80QM13DW98yDSar4C 5 uKT0M9RrCMSquxlacdyqtWC8Z XUxXZTgfU24Di3whIwyHo7xCX BxFDH1YEKhzNHbC2AnqT4oImX j EJKfLJXbE6JadIEiAMdhS245E KfiPdV2PGQofiOwC9XyGUXaeK iaJlF5f4C3Tn0QDw46PZ75HM4 8 lKQrf0P7rXR7V1DzVYTwldjmn coniOF0TNYfUCItuG16Ka0opR mpOx8cCSWsMBG6TNKdzAGaA1I v rB7wKaJoPWOhILAbQ9MxaDAzP LpfQ298EYstMlN9JRRjgmGdU3 PkFQAldOajCzI4h9Z1Tl1ADSv l akd4Q4XbZhqawXA+SD61ZPCrM J24eMZrwEMaw7dmmWl6CyJhIU RrSMD3rUutNDjwl3LwJZNyT08 s bGFw (more content not included)... Normal [facility] Auto Diffon 03-23-2022 Basophils/100 WBC (Bld) 1.6 % Normal 0.0-2.0 [facility] Comment on above: Order Comment: Order Added by Discern Expert. Performed By: #### 2 197416, 1709582, 1892503, 93065044, 8906357, 0887838, [id number] ####[address] [address] Basophils/Leukocyt es Auto (Bld) [Pure # fraction] 0.1 E9/L Normal 0.0-0.2 [facility] Comment on above: Order Comment: Order Added by Discern Expert. Performed By: #### 2 406077, 3589563, 8303074, 03683775, 9670012, 3297894, [id number] ####[address] [address] Eosinophils/100 WBC (Bld) 1.8 % Normal 0.0-8.0 [facility] Comment on above: Order Comment: Order Added by Discern Expert. Performed By: #### 2 364798, 4266716, 6609267, 92984425, 7594922, 5102259, [id number] ####[address] [address] Eosinophils/Leukoc ytes Auto (Bld) [Pure # fraction] 0.1 E9/L Normal 0.0-0.5 [facility] Comment on above: Order Comment: Order Added by Discern Expert. Performed By: #### 2 179192, 4355203, 3303361, 62088935, 0408119, 2550459, 15093380 ####[address] [place] [address] Lymphocytes/100 WBC (Bld) 31.3 % Normal 14.0-50.0 [facility] Comment on above: Order Comment: Order Added by Discern Expert. Performed By: #### 2 455696, 2951406, 7334245, 30067301, 4176718, 6095092, 81990779 ####[address] [address] Lymphocytes/Leukoc ytes Auto (Bld) [Pure # fraction] 2.2 E9/L Normal 1.0-4.0 [facility] Comment on above: Order Comment: Order Added by Discern Expert. Performed By: #### 2 017709, 0177827, 8229531, 09143846, 4464110, 2642256, [id number] ####[address] [place] [address] Monocytes/100 WBC (Bld) 10.1 % Normal 4.0-14.0 [facility] Comment on above: Order Comment: Order Added by Discern Expert. Performed By: #### 2 376219, 9665214, 4375033, 88925039, 8340756, 7356942, 72858607 ####[address] [address] Monocytes/Leukocyt es Auto (Bld) [Pure # fraction] 0.7 E9/L Normal 0.2-1.0 [facility] Comment on above: Order Comment: Order Added by Discern Expert. Performed By: #### 2 016636, 4750946, 6772576, 00625921, 1623325, 0592630, [id number] ####[address] [address] Neutrophils/100 WBC (Bld) 55.2 % Normal 36.0-75.0 [facility] Comment on above: Order Comment: Order Added by Discern Expert. Performed By: #### 2 544153, 7302693, 0066175, 64593480, 4837122, 4471428, 18377332 ####[address] [place] [address] Neutrophils/Leukoc ytes Auto (Bld) [Pure # fraction] 3.8 E9/L Normal 2.0-7.5 [facility] Comment on above: Order Comment: Order Added by Daniel Expert. Performed By: #### 2 956480, 9448277, 7499167, 20442071, 2187875, 5840234, 72799644 ####[address] [place] [address] B hCG Qualon 03-23-2022 Beta hCG Ql Negative Normal [facility] Comment on above: Performed By: #### 2 370184, 1894944, 2983202, 51036774, 1839139, 9130905, 38894375 ####[facility] [address] [place] [address] BMPon 03-23-2022 Creatinine [Mass/Vol] 0.7 mg/dL Normal 0.5-1.3 [facility] Comment on above: Performed By: #### 2 923312, 9786210, 8844663, 50681615, 2718865, 5720024, 12926975 ####[facility] [address] [place] [address] Urea nitrogen [Mass/Vol] 5 mg/dL Normal 5-21 [facility] Comment on above: Performed By: #### 2 566815, 1270363, 4518228, 41790694, 6071589, 6489548, 00390339 ####[facility] [address] [place] [address] Urea nitrogen/Creatinin e [Mass ratio] 7 No Units Low 10-20 [facility] Comment on above: Performed By: #### 2 582450, 1505566, 7255790, 72274813, 7032503, 6304643, 12028399 ####[facility] [address] [place] [address] Anion gap [Moles/Vol] 17 mmol/L High 6-16 [facility] Comment on above: Performed By: #### 2 840217, 0682330, 0919186, 12797503, 0940047, 8509970, 77608104 ####[facility] [address] [place] [address] Calcium [Mass/Vol] 9.3 mg/dL Normal 8.9-11.1 [facility] Comment on above: Performed By: #### 2 904649, 3669156, 2159485, 72969678, 4161996, 9015649, 89693196 ####[facility] [address] [place] [address] Chloride [Moles/Vol] 101 mmol/L Normal 101-111 [facility] Comment on above: Performed By: #### 2 513285, 3210028, 1560396, 17645472, 0823115, 3978664, 73317690 ####[facility] [address] [place] [address] CO2 [Moles/Vol] 24 mmol/L Normal 21-31 [facility] Comment on above: Performed By: #### 2 539461, 7010116, 4853270, 93631137, 5209696, 3972018, 97896721 ####[facility] [address] [place] [address] Glucose [Mass/Vol] 99 mg/dL Normal 55-199 [facility] Comment on above: Result Comment: If t his glucose result represents a fasting glucose, interpretation should refer to the following reference range: 55-99 mg/dL Performed By: #### 2 705150, 0626345, 8727836, 06024582, 4011693, 7749361, 93503757 ####[facility] [address] [place] [address] Potassium [Moles/Vol] 3.5 mmol/L Normal 3.5-5.3 [facility] Comment on above: Performed By: #### 2 868643, 9165933, 1094479, 58301803, 5322548, 4152978, 79452051 ####[facility] [address] [place] [address] Sodium [Moles/Vol] 138 mmol/L Normal 135-145 [facility] Comment on above: Performed By: #### 2 777691, 2350534, 4548962, 43101959, 8049790, 8901994, 06485891 ####[facility] [address] [place] [address] CBC w/ Auto Diffon 2 Erythrocyte distribution width (RBC) [Ratio] 13.0 % Normal 10.9-14.2 [facility] Comment on above: Performed By: #### 2 163606, 7936844, 9750574, 58085918, 8575813, 1200839, 22389943 ####[facility] [address] [place] [address] Hematocrit (Bld) [Volume fraction] 39.9 % Normal 34.0-46.0 [facility] Comment on above: Performed By: #### 2 769978, 4870976, 5023919, 19263574, 3517289, 2468369, 31511786 ####[place] [place] [place] [address] Hemoglobin (Bld) [Mass/Vol] 13.5 g/dL Normal 12.0-16.0 [facility] Comment on above: Performed By: #### 2 057615, 9221049, 7227162, 83033300, 6372969, 6772085, 18355818 ####[address] [address] MCH (RBC) [Entitic mass] 33.8 pg Normal 27.0-34.0 [facility] Comment on above: Performed By: #### 2 408065, 8697947, 4944445, 70382209, 6151374, 2491823, 09492607 ####[address] [address] MCHC (RBC) [Mass/Vol] 34.0 g/dL Normal 31.4-36.0 [facility] Comment on above: Performed By: #### 2 846249, 0129948, 7731240, 40578123, 2436892, 5260639, 56403338 ####[address] [address] MCV (RBC) [Entitic vol] 99.5 fL Normal 80.0-100.0 [facility] Comment on above: Performed By: #### 2 699761, 1087704, 1065806, 94667324, 3934064, 0490297, 82176479 ####[facility] [address] [place] [address] Platelet mean volume (Bld) [Entitic vol] 8.1 fL Normal 6.4-10.8 [facility] Comment on above: Performed By: #### 2 397262, 4888583, 3084180, 30681372, 3784211, 4251878, 08378687 ####[facility] [address] [place] [address] Platelets (Bld) [#/Vol] 365.0 E9/L Normal 150.0-500.0 [facility] Comment on above: Performed By: #### 2 199930, 9966934, 6718486, 01393695, 0743924, 6784133, 09310842 ####[facility] [address] [place] [address] RBC (Bld) [#/Vol] 4.0 E12/L Low 4.3-5.9 [facility] Comment on above: Performed By: #### 2 913975, 7572510, 4097732, 89224903, 1960380, 6568428, 62336698 ####[facility] [address] [place] [address] WBC corrected for nucl RBC Auto (Bld) [#/Vol] 6.9 E9/L Normal 4.0-11.0 [facility] Comment on above: Performed By: #### 2 745690, 3503456, 8789466, 80751890, 1802563, 7260532, 16365627 ####[facility] [address] [place] [address] CHEMISTRYOrdered By: SYSTEM SYSTEM on 03-23-2022 Albumin [...] 7.1 g/dL Normal 6.0 - 7.8 gm/dL [facility] Remisol Sodium [Moles/Vol] 138 mmol/L Normal 135 - 145 mmol/L [facility] Remisol Urea nitrogen [Mass/Vol] 5 mg/dL Normal 5 - 21 mg/dL [facility] Remisol Urea nitrogen/Creatinin e [Mass ratio] 7 mg/mg Low 10 - 20 [facility] Remisol Consent for Treatmenton Consent for Treatment [id number]:12 7 Normal [facility] Discharge Instructionson Discharge Instructions [id number]:12 7 Normal [facility] ED Clinical Summaryon 2021 ED Clinical Summary [address] [address] ED Clinical Summary Person Information Name: BERENICE SANTOS [facility] Age: 26 Years : 1995 Sex: Female Language: Serbian PCP: JUSTIN MAX DO Marital Status: Visit [...] 03/23/2022 15:45:11 03/23/2022 15:45:11 03/23/2022 15:45:11 ADDRESS: [address] [place] [address] [place] [id number] [facility] DOC NOTES: MEDICAL INFORMATION: Prescriptions Given: New Medications [facility] [address], [address], [place] [id number], [phone] ondansetron (Zofran ODT 4 mg Tab-Dis) 1 [...] Lower Gastrointestinal Bleeding; Bloody Diarrhea; Rectal Bleeding, Ntoe-rm-Hjdj Follow up: With: Address: When: Roma HAWKINS [address] [place], [place] [id number] Business (1) In 3 days 03/26/2022 Comments: Follow-up with Dr. Hawkins for further evaluation of your blood in your stool. With: Address: When: JUSTIN MAX [address] [place] [address] Business (1) In 3 days 03/26/2022 Comments: Follow-up with your primary care provider in 3 to 5 days. If symptoms worsen, do not improve, or new symptoms arise please report back to emergency department for further evaluation. DIAGNOSIS: Blood in stool Normal [facility] ED Note-Physicianon 03-23-20 ED Note-Physician Basic [...] Nausea/Vomiting, # 12 tab(s), Refills(s) 0, Pharmacy: [facility], 157, cm, 03/23/22 13:50:00 EST, Height/Length [...] Given NS1 (more content not included)... Normal [facility] Comment on above: Result Comment: Elec [...] Follow these instructions at home: ? Take pwkv-gbr-nbuornv and prescription medicines only as told by [...] 08/18/2016 Document Revised: 07/26/2019 Document Reviewed: 08/18/2016 [employer] Patient Education ? 2019 [employer] Rectal Bleeding Rectal bleeding is when blood comes out of the opening of the butt (anus). People with this kind of bleeding may notice bright red blood in their underwear or in the toilet after they poop (have a bowel movement). They may also (more content not included)... Normal [facility] ED Patient Summaryon 022 ED Patient Summary (Inserted Image. Laureen ble to display) [place] [id number] Patient Discharge Instructions Person Information Name: BERENICE SANTOS Age: 26 Years Arrival Date: 03/23/2022 13:42:10 Discharge Diagnosis: Blood in stool Primary Care Physician: JUSTIN MAX DO Provider Information Primary Provider: Rodney Johnson M.D. Advanced Head Strength And Conditioning Coach:None The exam and treatment you received in the Emergency Department were for an urgent problem and are not intended as complete care. It is important that you follow up with a doctor, nurse practitioner, or physician?s administrative assistant office manager for ongoing care. If your symptoms become [...] Roma HAWKINS [address] [place], [place] [id number] Business (1) In 3 days 03/26/2022 Comments: Follow-up with Dr. Hawkins for further evaluation of your blood in your stool. With: Address: When: JUSTIN MAX [address] [place] [address] Business (1) In 3 days 03/26/2022 Comments: [...] Lower Gastrointestinal Bleeding; Bloody Diarrhea; Rectal Bleeding, Wzjl-bg-Mirg A MESSAGE TO ALL PATIENTS REGARDING OPIOIDS PRESCRIPTION OPIOIDS: WHAT YOU NEED TO KNOW Prescription opioids can be used to help relieve xkvaephb-og-njdtdq pain and are often prescribed following a [...] your comm (more content not included)... Normal [facility] HEMATOLOGYOrdered By: SYSTEM SYSTEM on 03-23-2022 [...] Bilirubin.indirect [Mass or moles/Vol] UTC Abnormal 0.1-0.9 [facility] Comment on above: Result Comment: Resu lt verified by [employer]. Performed result UT (Unable to Calculate) was sent as an Alpha code due the inability to calculate a valid numeric value. Performed By: #### 2 861199, 5642523, 6144974, 53660838, 4817475, 3693021, 73042225 ####[facility] [address] [place] [address] Albumin [Mass/Vol] 4.3 g/dL Normal 3.3-5.0 [facility] Comment on above: Performed By: #### 2 085241, 4781586, 6188266, 38533320, 1101575, 7819501, 58728186 ####[facility] [address] [place] [address] Albumin/Globulin (S) [Mass conc ratio] 1.5 Normal 1.1-2.2 [facility] Comment on above: Performed By: #### 2 687256, 1824431, 6042223, 40068631, 4591212, 2608295, 48997500 ####[facility] [address] [place] [address] ALP [Catalytic activity/Vol] 50 Int._Unit/L Normal 21-98 [facility] Comment on above: Performed By: #### 2 693717, 9368277, 8847512, 52886508, 4684397, 3759896, 24066581 ####[facility] [address] [place] [address] ALT No additional P-5'-P [Catalytic activity/Vol] 20 Int._Unit/L Normal 6-46 [facility] Comment on above: Performed By: #### 2 326189, 9194838, 7016243, 53075646, 1174183, 3747431, 47307745 ####[facility] [address] [place] [address] AST [Catalytic activity/Vol] 19 Int._Unit/L Normal 5-43 [facility] Comment on above: Performed By: #### 2 146974, 9439752, 4623891, 01261907, 9509773, 6158822, 31742220 ####[facility] [address] [place] [address] Bilirubin [Mass/Vol] 0.4 mg/dL Normal 0.0-1.1 [facility] Comment on above: Performed By: #### 2 [id number], [id number], [id number], [id number], [id number], [id number], [id number] ####[facility] [address] [place] [address] Bilirubin.direct [Mass/Vol] mg/dL Normal 0.1-0.4 [facility] Comment on above: Performed By: #### 2 [id number], 7344557, 0798195, [id number], 7495796, 1051727, [id number] ####[address] [address] Globulin (S) [Mass/Vol] 2.8 g/dL Normal 1.4-4.0 [facility] Comment on above: Performed By: #### 2 [id number], 7573003, 7045501, [id number], 9620009, 6938624, [id number] ####[address] [address] Protein [Mass/Vol] 7.1 g/dL Normal 6.0-7.8 [facility] Comment on above: Performed By: #### 2 [id number], 3803473, 7860642, [id number], 4210024, 5583126, [id number] ####[address] [address] Lipase Levelon 03-23-2022 Lipase [Catalytic activity/Vol] 24 U/L Normal 13-58 [facility] Comment on above: Performed By: #### 2 [id number], 4186668, 5996199, 60868998, 2951144, 3630691, [id number] ####[address] [place] [address] SEROLOGYOrdered By: Dana Garsia on 03-23-2022 Beta hCG Ql Negative (03/23/22 2:15 PM) Normal [facility] Man Sero UA With Cult Reflexon 2021 Bilirubin Ql (U) Negative Normal Negative [facility] Comment on above: Performed By: #### 1 [id number] ####[address] [address] Clarity (U) CLEAR Normal Clear [facility] Comment on above: Performed By: #### 1 [id number] ####[address] [address] Color (U) YELLOW Normal Yellow [facility] Comment on above: Performed By: #### 1 [id number] ####[address] [address] Epithelial cells.squamous LM.HPF (Urine sed) [#/Area] 0-2 Normal 0-2 [facility] Comment on above: Performed By: #### 1 [id number] ####[address] [address] Glucose Test strip (U) [Mass/Vol] Negative Normal Negative [facility] Comment on above: Performed By: #### 1 [id number] ####[address] [address] Hemoglobin Ql (U) Negative Normal Negative [facility] Comment on above: Performed By: #### 1 [id number] ####[address] [address] Ketones (U) [Mass/Vol] Negative Normal Negative [facility] Comment on above: Performed By: #### 1 [id number] ####[address] [address] [place].plasma/Lit hium.RBC (Bld) [Mass ratio] 0-3 Normal 0-3 [facility] Comment on above: Performed By: #### 1 [id number] ####[address] [place] [address] Nitrite Ql (U) Negative Normal Negative [facility] Comment on above: Performed By: #### 1 [id number] ####[address] [address] pH (U) 6.5 [pH] Invalid Interpretation Code 5.0-9.0 [facility] Comment on above: Performed By: #### 1 [id number] ####[address] [address] Protein (U) [Mass/Vol] Negative Normal Negative [facility] Comment on above: Performed By: #### 1 [id number] ####[address] [address] Specific gravity (U) [Rel density] 1.010 Invalid Interpretation Code 1.005-1.030 [facility] Comment on above: Performed By: #### 1 [id number] ####[address] [address] Type of Urine collection method Clean Catch Normal [facility] Comment on above: Performed By: #### 1 [id number] ####[address] [address] Urobilinogen Qn (U) 0.2 {Chiara'U}/dL Normal 0.0-1.0 [facility] Comment on above: Performed By: #### 1 [id number] ####[address] [address] WBC Auto Ql (U) Negative Normal Negative [facility] Comment on above: Performed By: #### 1 [id number] ####[address] [address] WBC LM.HPF (Urine sed) [#/Area] 0-5 Normal 0-5 [facility] Comment on above: Performed By: #### 1 [id number] ####[address] [address] URINALYSISOrdered By: Mychal Garsia on 03-23-2022 Bilirubin [...] PM) Normal Negative [facility] UA Auto SS [place].plasma/Lit hium.RBC (Bld) [Mass ratio] 0-3 /HPF Normal [...] [facility] UA Auto SS Urobilinogen Qn (U) 0.6556620 {Chiara'U}/dL Normal 0.0 - 1.0 EU/dL [facility] UA Auto SS WBC Auto Ql (U) Negative (03/23/22 2:54 PM) Normal Negative [facility] UA Auto SS WBC LM.HPF (Urine sed) [#/Area] 0-5 /HPF Normal 0-5/HPF [facility] UA Auto SS eGFRon 03-23-2022 GFR/1.73 sq M.predicted among blacks MDRD (S/P/Bld) [Vol rate/Area] mL/min/{1.73_m2} Normal >=59 [facility] Comment on above: Order Comment: Order added by Discern Expert. Result Comment: eGFR is race adjusted. AA=. Performed By: #### 2 [id number], 0759126, 6205053, [id number], 6168593, 2447253, [id number] ####[facility] [address] [place] [address] GFR/1.73 sq M.predicted among non-blacks MDRD (S/P/Bld) [Vol rate/Area] mL/min/{1.73_m2} Normal >=59 [facility] Comment on above: Order Comment: Order added by Discern Expert. Result Comment: Census Taker juan pablo kidney disease could be indicated at eGFR's of less than 60 mL/min/1.73m2. Kidney failure is indicated at less than 15 mL/min/1.73m2. Performed By: #### 2 [id number], 1630945, 7753196, [id number], 7083167, 3349100, [id number] ####[facility] [address] [place] [address] COVID + FLU Quick Testingon 01-06-2022 SARS-CoV-2 (COVID-19) RNA MAKEDA+probe Ql (Unsp spec) Negative [facility] Other COVID + FLU Quick Testing Negative [facility] Other COVID + FLU Quick Testing [facility] Other Lower GI hemoglobin IA Ql (S tl)on 06-21-2021 Occult Blood, Fecal - x1 [facility] Other Vital Signs Date Time Vital Sign Value Performing Clinician Facility 02-22-2023 14:30-0500 Diastolic blood pressure 74 mm[Hg] [facility] 02-22-2023 14:30-0500 Heart rate 74 /min [facility] 02-22-2023 14:30-0500 Respiratory rate 18 /min [facility] 02-22-2023 14:30-0500 SaO2% (BldA) [Mass fraction] 98 % [facility] 02-22-2023 14:30-0500 Systolic blood pressure 126 mm[Hg] [facility] 02-22-2023 12:10-0500 Body temperature 98.06 [degF] [facility] 02-22-2023 12:10-0500 Diastolic blood pressure 64 mm[Hg] [facility] 02-22-2023 12:10-0500 Heart rate 66 /min [facility] 02-22-2023 12:10-0500 Respiratory rate 18 /min [facility] 02-22-2023 12:10-0500 SaO2% (BldA) [Mass fraction] 99 % [facility] 02-22-2023 12:10-0500 Systolic blood pressure 105 mm[Hg] [facility] 12-12-2022 08:45-0400 Body height 157.48 cm Justin Mansoor Other [facility] Other 12-12-2022 08:45-0400 Body mass index (BMI) [Ratio] 32.74 kg/m2 Justin Mansoor Other [facility] Other 12-12-2022 08:45-0400 Body temperature 96.9 [degF] Justin Mansoor Other [facility] Other 12-12-2022 08:45-0400 Body weight 81.19 kg Justin Mansoor Other [facility] Other 12-12-2022 08:45-0400 Diastolic blood pressure 78 mm[Hg] Justin Mansoor Other [facility] Other 12-12-2022 08:45-0400 Respiratory rate 20 /min Justin Mansoor Other [facility] Other 12-12-2022 08:45-0400 SaO2% (BldA) [Mass fraction] 97 % Justin Mansoor Other [facility] Other 12-12-2022 08:45-0400 Systolic blood pressure 122 mm[Hg] Justin Mansoor Other [facility] Other 11-11-2022 11:15-0400 Body height 157.48 cm Justin Mansoor Other [facility] Other 11-11-2022 11:15-0400 Body mass index (BMI) [Ratio] 31.09 kg/m2 Justin Mansoor Other [facility] Other 11-11-2022 11:15-0400 Body temperature 96.9 [degF] Justin Mansoor Other [facility] Other 11-11-2022 11:15-0400 Body weight 77.11 kg Justin Mansoor Other [facility] Other 11-11-2022 11:15-0400 Diastolic blood pressure 78 mm[Hg] Justin Mansoor Other [facility] Other 11-11-2022 11:15-0400 Respiratory rate 20 /min Justin Mansoor Other [facility] Other 11-11-2022 11:15-0400 SaO2% (BldA) [Mass fraction] 97 % Justin Mansoor Other [facility] Other 11-11-2022 11:15-0400 Systolic blood pressure 114 mm[Hg] Justin Mansoor Other [facility] Other 11-09-2022 13:43-0400 Blood Pressure Location Olena Resendez [facility] 11-09-2022 13:43-0400 Body temperature 97.7 [degF] Olena Resendez [facility] 11-09-2022 13:43-0400 Diastolic blood pressure 69 mm[Hg] Olena Courtneymetz [facility] 11-09-2022 13:43-0400 Heart rate 111 /min Olena Resendez [facility] 11-09-2022 13:43-0400 Systolic blood pressure 104 mm[Hg] Olena Resendez [facility] 10-12-2022 11:45-0400 Body height 157.48 cm Justin Mansoor Other [facility] Other 10-12-2022 11:45-0400 Body mass index (BMI) [Ratio] 31.09 kg/m2 Justin Mansoor Other [facility] Other 10-12-2022 11:45-0400 Body temperature 97.4 [degF] Justin Mansoor Other [facility] Other 10-12-2022 11:45-0400 Body weight 77.11 kg Justin Mansoor Other [facility] Other 10-12-2022 11:45-0400 Diastolic blood pressure 68 mm[Hg] Justin Mansoor Other [facility] Other 10-12-2022 11:45-0400 Respiratory rate 20 /min Justin Mansoor Other [facility] Other 10-12-2022 11:45-0400 SaO2% (BldA) [Mass fraction] 98 % Justin Mansoor Other [facility] Other 10-12-2022 11:45-0400 Systolic blood pressure 112 mm[Hg] Justin Mansoor Other [facility] Other 09-26-2022 14:25-0400 Blood Pressure Location Brandon SALAM [facility] 09-26-2022 14:25-0400 Diastolic blood pressure 57 mm[Hg] Brandon SALAM [facility] 09-26-2022 14:25-0400 Heart rate 97 /min Brandon SALAM [facility] 09-26-2022 14:25-0400 Respiratory rate 16 /min Brandon SALAM [facility] 09-26-2022 14:25-0400 SaO2% (BldA) [Mass fraction] 97 % Brandon SALAM [facility] 09-26-2022 14:25-0400 Systolic blood pressure 107 mm[Hg] Brandon SALAM [facility] 09-26-2022 14:10-0400 Blood Pressure Location Brandon SALAM [facility] 09-26-2022 14:10-0400 Diastolic blood pressure 65 mm[Hg] Brandon SALAM [facility] 09-26-2022 14:10-0400 Heart rate 98 /min Brandon SALAM [facility] 09-26-2022 14:10-0400 Respiratory rate 20 /min Brandon SALAM [facility] 09-26-2022 14:10-0400 SaO2% (BldA) [Mass fraction] 97 % Brandon SALAM [facility] 09-26-2022 14:10-0400 Systolic blood pressure 105 mm[Hg] Brandon SALAM [facility] 09-26-2022 13:59-0400 Blood Pressure Location Brandon SALAM [facility] 09-26-2022 13:59-0400 Diastolic blood pressure 65 mm[Hg] Brandon SALAM [facility] 09-26-2022 13:59-0400 Heart rate 101 /min Brandon SALAM [facility] 09-26-2022 13:59-0400 Respiratory rate 17 /min Brandon SALAM [facility] 09-26-2022 13:59-0400 SaO2% (BldA) [Mass fraction] 98 % Brandon SALAM [facility] 09-26-2022 13:59-0400 Systolic blood pressure 99 mm[Hg] Brandon SALAM [facility] 09-26-2022 13:44-0400 Body temperature 97.52 [degF] Brandon SALAM [facility] 09-26-2022 13:27-0400 Respiratory rate 18 /min Brandon SALAM [facility] 09-26-2022 13:05-0400 Body temperature 96.8 [degF] Brandon SALAM [facility] 09-26-2022 13:05-0400 Respiratory rate 19 /min Brandon SALAM [facility] 09-14-2022 11:45-0400 Body height 157.48 cm Justin Mansoor Other [facility] Other 09-14-2022 11:45-0400 Body mass index (BMI) [Ratio] 30.18 kg/m2 Justin Mansoor Other [facility] Other 09-14-2022 11:45-0400 Body temperature 97.2 [degF] Justin Mansoor Other [facility] Other 09-14-2022 11:45-0400 Body weight 74.84 kg Justin Mansoor Other [facility] Other 09-14-2022 11:45-0400 Diastolic blood pressure 72 mm[Hg] Justin Mansoor Other [facility] Other 09-14-2022 11:45-0400 Respiratory rate 20 /min Justin Mansoor Other [facility] Other 09-14-2022 11:45-0400 SaO2% (BldA) [Mass fraction] 98 % Justin Mansoor Other [facility] Other 09-14-2022 11:45-0400 Systolic blood pressure 112 mm[Hg] Justin Mansoro Other [facility] Other 08-17-2022 12:15-0400 Body height 157.48 cm Justin Mansoor Other [facility] Other 08-17-2022 12:15-0400 Body mass index (BMI) [Ratio] 29.99 kg/m2 Justin Mansoor Other [facility] Other 08-17-2022 12:15-0400 Body temperature 97.2 [degF] Justin Mansoor Other [facility] Other 08-17-2022 12:15-0400 Body weight 74.39 kg Justin Mansoor Other [facility] Other 08-17-2022 12:15-0400 Diastolic blood pressure 82 mm[Hg] Justin Mansoor Other [facility] Other 08-17-2022 12:15-0400 Respiratory rate 20 /min Justin Mansoor Other [facility] Other 08-17-2022 12:15-0400 SaO2% (BldA) [Mass fraction] 97 % Justin Mansoor Other [facility] Other 08-17-2022 12:15-0400 Systolic blood pressure 28 mm[Hg] Justin Mansoor Other [facility] Other 08-05-2022 08:12-0400 Diastolic blood pressure 68 mm[Hg] Román Dominguez [facility] 08-05-2022 08:12-0400 Heart rate 105 /min Román Dominguez [facility] 08-05-2022 08:12-0400 SaO2% (BldA) [Mass fraction] 98 % Román Dominguez [facility] 08-05-2022 08:12-0400 Systolic blood pressure 117 mm[Hg] Román Dominguez [facility] 07-27-2022 09:30-0400 Blood Pressure Location Olena Resendez [facility] 07-27-2022 09:30-0400 Body temperature 97.34 [degF] Olena Resendez [facility] 07-27-2022 09:30-0400 Diastolic blood pressure 70 mm[Hg] Olena Resendez [facility] 07-27-2022 09:30-0400 Heart rate 102 /min Olena Resendez [facility] 07-27-2022 09:30-0400 Systolic blood pressure 107 mm[Hg] Olena Resendez [facility] 07-19-2022 12:30-0400 Body height 157.48 cm Justin Mansoor Other [facility] Other 07-19-2022 12:30-0400 Body mass index (BMI) [Ratio] 30.36 kg/m2 Justin Mansoor Other [facility] Other 07-19-2022 12:30-0400 Body temperature 97.4 [degF] Justin Mansoor Other [facility] Other 07-19-2022 12:30-0400 Body weight 75.3 kg Justin Mansoor Other [facility] Other 07-19-2022 12:30-0400 Diastolic blood pressure 68 mm[Hg] Justin Mansoor Other [facility] Other 07-19-2022 12:30-0400 Respiratory rate 20 /min Justin Mansoor Other [facility] Other 07-19-2022 12:30-0400 SaO2% (BldA) [Mass fraction] 97 % Justin Mansoor Other [facility] Other 07-19-2022 12:30-0400 Systolic blood pressure 116 mm[Hg] Justin Mansoor Other [facility] Other 06-06-2022 11:45-0500 Body height 157.48 cm Justin Mansoor Other [facility] Other 06-06-2022 11:45-0500 Body mass index (BMI) [Ratio] 31.46 kg/m2 Justin Mansoor Other [facility] Other 06-06-2022 11:45-0500 Body temperature 96.8 [degF] Justin Mansoor Other [facility] Other 06-06-2022 11:45-0500 Body weight 78.02 kg Justin Mansoor Other [facility] Other 06-06-2022 11:45-0500 Diastolic blood pressure 72 mm[Hg] Justin Mansoor Other [facility] Other 06-06-2022 11:45-0500 Respiratory rate 20 /min Justin Mansoor Other [facility] Other 06-06-2022 11:45-0500 SaO2% (BldA) [Mass fraction] 97 % Justin Mansoor Other [facility] Other 06-06-2022 11:45-0500 Systolic blood pressure 122 mm[Hg] Justin Mansoor Other [facility] Other 04-21-2022 11:30-0500 Body height 157.48 cm Justin Mansoor Other [facility] Other 04-21-2022 11:30-0500 Body mass index (BMI) [Ratio] 31.64 kg/m2 Justin Mansoor Other [facility] Other 04-21-2022 11:30-0500 Body temperature 97.5 [degF] Justin Mansoor Other [facility] Other 04-21-2022 11:30-0500 Body weight 78.47 kg Justin Mansoor Other [facility] Other 04-21-2022 11:30-0500 Diastolic blood pressure 68 mm[Hg] Justin Mansoor Other [facility] Other 04-21-2022 11:30-0500 Respiratory rate 20 /min Justin Mansoor Other [facility] Other 04-21-2022 11:30-0500 SaO2% (BldA) [Mass fraction] 99 % Justin Mansoor Other [facility] Other 04-21-2022 11:30-0500 Systolic blood pressure 110 mm[Hg] Justin Max Other [facility] Other 03-23-2022 15:00-0500 Diastolic blood pressure 66 mm[Hg] [facility] 03-23-2022 15:00-0500 Heart rate 75 /min [facility] 03-23-2022 15:00-0500 Mean blood pressure 81 mm[Hg] [facility] 03-23-2022 15:00-0500 Systolic blood pressure 112 mm[Hg] [facility] 03-23-2022 14:25-0500 Diastolic blood pressure 69 mm[Hg] [facility] 03-23-2022 14:25-0500 Heart rate 94 /min [facility] 03-23-2022 14:25-0500 Respiratory rate 14 /min [facility] 03-23-2022 14:25-0500 SaO2% (BldA) [Mass fraction] 100 % [facility] 03-23-2022 14:25-0500 Systolic blood pressure 84 mm[Hg] [facility] 03-23-2022 13:48-0500 Body temperature 98.06 [degF] [facility] 03-23-2022 13:48-0500 Diastolic blood pressure 84 mm[Hg] [facility] 03-23-2022 13:48-0500 Heart rate 100 /min [facility] 03-23-2022 13:48-0500 Respiratory rate 16 /min [facility] 03-23-2022 13:48-0500 SaO2% (BldA) [Mass fraction] 99 % [facility] 03-23-2022 13:48-0500 Systolic blood pressure 128 mm[Hg] Rodney Johnson [facility] 12-02-2021 11:00-0400 Body height 157.48 cm Justin Mansoor Other [facility] Other 12-02-2021 11:00-0400 Body mass index (BMI) [Ratio] 34.56 kg/m2 Justin Mansoor Other [facility] Other 12-02-2021 11:00-0400 Body temperature 97.6 [degF] Justin Mansoor Other [facility] Other 12-02-2021 11:00-0400 Body weight 85.73 kg Justin Mansoor Other [facility] Other 12-02-2021 11:00-0400 Diastolic blood pressure 82 mm[Hg] Justin Mansoor Other [facility] Other 12-02-2021 11:00-0400 Respiratory rate 20 /min Justin Mansoor Other [facility] Other 12-02-2021 11:00-0400 SaO2% (BldA) [Mass fraction] 98 % Justin Mansoor Other [facility] Other 12-02-2021 11:00-0400 Systolic blood pressure 122 mm[Hg] Justin Mansoor Other [facility] Other 11-05-2021 11:45-0400 Body height 157.48 cm Justin Mansoor Other [facility] Other 11-05-2021 11:45-0400 Body mass index (BMI) [Ratio] 35.3 kg/m2 Justin Mansoor Other [facility] Other 11-05-2021 11:45-0400 Body temperature 98.6 [degF] Justin Mansoor Other [facility] Other 11-05-2021 11:45-0400 Body weight 87.54 kg Justin Mansoor Other [facility] Other 11-05-2021 11:45-0400 Diastolic blood pressure 82 mm[Hg] Justin Mansoor Other [facility] Other 11-05-2021 11:45-0400 Respiratory rate 20 /min Justin Mansoor Other [facility] Other 11-05-2021 11:45-0400 SaO2% (BldA) [Mass fraction] 98 % Justin Mansoor Other [facility] Other 11-05-2021 11:45-0400 Systolic blood pressure 128 mm[Hg] Justin Mansoor Other [facility] Other 10-05-2021 13:45-0400 Body height 157.48 cm Justin Mansoor Other [facility] Other 10-05-2021 13:45-0400 Body mass index (BMI) [Ratio] 36.21 kg/m2 Justin Mansoor Other [facility] Other 10-05-2021 13:45-0400 Body temperature 98.3 [degF] Justin Mansoor Other [facility] Other 10-05-2021 13:45-0400 Body weight 89.81 kg Justin Mansoor Other [facility] Other 10-05-2021 13:45-0400 Diastolic blood pressure 62 mm[Hg] Justin Mansoor Other [facility] Other 10-05-2021 13:45-0400 Respiratory rate 20 /min Justin Mansoor Other [facility] Other 10-05-2021 13:45-0400 SaO2% (BldA) [Mass fraction] 98 % Justin Mansoor Other [facility] Other 10-05-2021 13:45-0400 Systolic blood pressure 96 mm[Hg] Justin Mansoor Other [facility] Other 08-12-2021 12:54-0400 Blood Pressure Location Brandon SALAM [facility] 08-12-2021 12:54-0400 Diastolic blood pressure 84 mm[Hg] Brandon SALAM [facility] 08-12-2021 12:54-0400 Heart rate 75 /min Brandon SALAM [facility] 08-12-2021 12:54-0400 Respiratory rate 16 /min Brandon SALAM [facility] 08-12-2021 12:54-0400 Systolic blood pressure 132 mm[Hg] Brandon SALAM [facility] 06-08-2021 12:15-0500 Body height 157.48 cm Justin Mansoor Other [facility] Other 06-08-2021 12:15-0500 Body mass index (BMI) [Ratio] 36.76 kg/m2 Justin Mansoor Other [facility] Other 06-08-2021 12:15-0500 Body temperature 98.9 [degF] Justin Mansoor Other [facility] Other 06-08-2021 12:15-0500 Body weight 91.17 kg Justin Mansoor Other [facility] Other 06-08-2021 12:15-0500 Diastolic blood pressure 82 mm[Hg] Justin Mansoor Other [facility] Other 06-08-2021 12:15-0500 Respiratory rate 20 /min Justin Mansoor Other [facility] Other 06-08-2021 12:15-0500 SaO2% (BldA) [Mass fraction] 97 % Justin Mansoor Other [facility] Other 06-08-2021 12:15-0500 Systolic blood pressure 122 mm[Hg] Justin Mansoor Other [facility] Other Encounters Encounter Date Encounter Type Care Provider Facility Start: 04-25-2023 End: 04-25-2023 ambulatory EVELYN CABRERA Not Available Start: 04-05-2023 End: 04-05-2023 ambulatory William Payne Other [facility] Other Start: 04-05-2023 Encounter by Mijn [employer] r hui Payne [facility] [place] Start: 04-04-2023 End: 04-04-2023 ambulatory JOCE ARIEL Not Available Start: 03-02-2023 End: 03-02-2023 ambulatory JOCE ARIEL Not Available Start: 02-22-2023 End: 02-22-2023 Emergency department patient visit Rodney Johnson Facility:[facility] Start: 02-22-2023 End: 02-22-2023 Emergency department patient visit Rodney Johnson [facility] Start: 02-01-2023 End: 02-01-2023 ambulatory Justin Mansoor Other [facility] Other Start: 02-01-2023 Telephone encounter Justin Mansoor [facility] Start: 01-11-2023 End: 01-11-2023 ambulatory William Payne Other [facility] Other Start: 01-11-2023 Encounter by vIPtela hui Payne [facility] [place] Start: 12-30-2022 End: 12-30-2022 ambulatory Justin Mansoor Other [facility] Other Start: 12-30-2022 Telephone encounter Justin Mansoor [facility] Start: 12-16-2022 End: 12-16-2022 ambulatory Justin Mansoor Other [facility] Other Start: 12-16-2022 Encounter by vIPtela link Justin Mansoor [facility] Start: 12-15-2022 End: 12-15-2022 ambulatory Justin Mansoor Other [facility] Other Start: 12-15-2022 Encounter by [employer] Justin Mansoor [facility] Start: 12-12-2022 End: 12-12-2022 ambulatory Justin Mansoor Other [facility] Other Start: 12-12-2022 Office outpatient visit 15 minutes Justin Mansoor [facility] Start: 11-30-2022 End: 11-30-2022 ambulatory Justin Mansoor Other [facility] Other Start: 11-30-2022 Encounter by compute r link Justin Mansoor [facility] Start: 11-28-2022 End: 11-29-2022 ambulatory William Payne Facility:[facility] Start: 11-15-2022 End: 11-15-2022 ambulatory William Payne Other [facility] Other Start: 11-15-2022 Office outpatient visit 15 minutes William Payne [facility] [place] Start: 11-14-2022 End: 11-14-2022 ambulatory Justin Mansoor Other [facility] Other Start: 11-14-2022 Telephone encounter Justin Mansoor [facility] Start: 11-11-2022 End: 11-11-2022 ambulatory Justin Mansoor Other [facility] Other Start: 11-11-2022 Office outpatient visit 15 minutes Justin Mansoor [facility] Start: 11-11-2022 Telephone encounter Justin Mansoor [facility] Start: 11-09-2022 End: 11-10-2022 ambulatory Olena Resendez Facility:[facility] Start: 11-09-2022 End: 11-09-2022 Patient encounter procedure Olena Resendez [facility] Start: 11-03-2022 End: 11-03-2022 ambulatory William Payne Other [facility] Other Start: 11-03-2022 Encounter by Mijn [employer] r link William Payne [facility] [place] Start: 11-01-2022 End: 11-01-2022 ambulatory Justin Mansoor Other [facility] Other Start: 11-01-2022 Telephone encounter Justin Mansoor [facility] Start: 10-31-2022 End: 10-31-2022 ambulatory Justin Mansoor Other [facility] Other Start: 10-31-2022 Encounter by Mijn [employer] r link Justin Mansoor [facility] Start: 10-26-2022 End: 10-26-2022 ambulatory Justin Mansoor Other [facility] Other Start: 10-26-2022 Encounter by Mijn [employer] r link Justin Mansoor [facility] Start: 10-21-2022 End: 10-21-2022 ambulatory Justin Mansoor Other [facility] Other Start: 10-21-2022 Encounter by Mijn [employer] Justin Mansoor [facility] Start: 10-12-2022 End: 10-12-2022 ambulatory Justin Mansoor Other [facility] Other Start: 10-12-2022 Office outpatient visit 15 minutes Justin Mansoor [facility] Start: 10-10-2022 End: 10-10-2022 ambulatory William Payne Other [facility] Other Start: 10-10-2022 Telephone encounter William Payne [employer] Start: 10-06-2022 End: 10-06-2022 ambulatory William Payne Facility:[facility] Start: 10-06-2022 End: 10-06-2022 ambulatory DO Justin M. Mansoor Work Phone: [facility] Work Phone: Start: 10-06-2022 End: 10-06-2022 Patient encounter procedure DO Justin Mansoor Work Phone: [facility] Start: 10-05-2022 End: 10-05-2022 ambulatory William Payne Facility:[facility] Start: 10-05-2022 End: 10-05-2022 ambulatory DO Justin M. Mansoor Work Phone: [facility] Work Phone: Start: 10-05-2022 End: 10-05-2022 Patient encounter procedure DO Justin Mansoor Work Phone: [facility]-XRay [address] Work Phone: Start: 09-30-2022 End: 09-30-2022 ambulatory Justin Mansoor Other [facility] Other Start: 09-30-2022 Encounter by juan r link Justin Mansoor [facility] Start: 09-29-2022 End: 09-29-2022 ambulatory William Payne Other [facility] Other Start: 09-29-2022 Telephone encounter William Payne [facility] [place] Start: 09-28-2022 End: 09-28-2022 ambulatory Justin Mansoor Other [facility] Other Start: 09-28-2022 Telephone encounter Justin Mansoor [facility] Start: 09-26-2022 End: 09-27-2022 ambulatory Brandon SALAM Facility:[facility] Start: 09-26-2022 End: 09-26-2022 Patient encounter procedure Brandon SALAM [facility] Start: 09-19-2022 End: 09-19-2022 ambulatory Justin Mansoor Other [facility] Other Start: 09-19-2022 Encounter by compute r link Justin Mansoor [facility] Start: 09-14-2022 End: 09-14-2022 ambulatory Justin Mansoor Other [facility] Other Start: 09-14-2022 Office outpatient visit 25 minutes Justin Mansoor [facility] Start: 09-14-2022 Telephone encounter Justin Mansoor [facility] Start: 08-24-2022 End: 08-24-2022 ambulatory Justin Mansoor Other [facility] Other Start: 08-24-2022 Encounter by compute r link Justin Mansoor [facility] Start: 08-24-2022 Telephone encounter Justin Mansoor [facility] Start: 08-23-2022 End: 08-23-2022 ambulatory Justin Mansoor Other [facility] Other Start: 08-23-2022 Encounter by compute r link Justin Mansoor [facility] Start: 08-17-2022 End: 08-17-2022 ambulatory Justin Mansoor Other [facility] Other Start: 08-17-2022 Office outpatient visit 15 minutes Justin Mansoor [facility] Start: 08-16-2022 End: 08-16-2022 ambulatory Justin Mansoor Other [facility] Other Start: 08-16-2022 Encounter by compute r link Justin Mansoor [facility] Start: 08-10-2022 End: 08-10-2022 ambulatory Justin Mansoor Other [facility] Other Start: 08-10-2022 Encounter by juan r link Justin Mansoor [facility] Start: 08-05-2022 End: 08-06-2022 ambulatory Román Dominguez Facility:[facility] Start: 08-05-2022 End: 08-05-2022 Patient encounter procedure Román Dominguez [facility] [place] Start: 08-02-2022 ambulatory Román Dominguez Facilit y:[facility] Start: 07-29-2022 End: 07-30-2022 ambulatory Olena Resendez Facility:[facility] Start: 07-29-2022 End: 07-29-2022 Patient encounter procedure JUSTIN MAX [facility] Start: 07-27-2022 End: 07-28-2022 ambulatory Olena Resendez Facility:[facility] Start: 07-27-2022 End: 07-27-2022 Patient encounter procedure Olena Resendez [facility] Start: 07-22-2022 End: 07-22-2022 ambulatory Justin Mansoor Other [facility] Other Start: 07-22-2022 Telephone encounter Justin Mansoor [facility] Start: 07-19-2022 End: 07-19-2022 ambulatory Justin Mansoor Other [facility] Other Start: 07-19-2022 Office outpatient visit 25 minutes Justin Mansoor [facility] Start: 07-06-2022 End: 07-06-2022 ambulatory Justin Mansoor Other [facility] Other Start: 07-06-2022 Encounter by Mijn [employer] r link Johana Duran [facility] Start: 07-06-2022 Telephone encounter Justin Mansoor [facility] Start: 07-02-2022 End: 07-03-2022 ambulatory JUSTIN M MANSOOR Facility:[facility] Start: 07-02-2022 End: 07-02-2022 Patient encounter procedure JUSTIN M MANSOOR [facility] Start: 06-27-2022 End: 06-27-2022 ambulatory Justin Mansoor Other [facility] Other Start: 06-27-2022 Telephone encounter Justin Mansoor [facility] Start: 06-24-2022 End: 06-24-2022 ambulatory Justin Mansoor Other [facility] Other Start: 06-24-2022 Encounter by vIPtela link Justin Mansoor [facility] Start: 06-20-2022 End: 06-20-2022 ambulatory Justin Mansoor Other [facility] Other Start: 06-20-2022 Telephone encounter Justin Mansoor [facility] Start: 06-14-2022 Encounter by Mijn [employer] r link Justin Mansoor [facility] Start: 06-14-2022 Telephone encounter Justin Mansoor [facility] Start: 06-14-2022 End: 06-14-2022 ambulatory Justin M. Mansoor [facility] Start: 06-13-2022 End: 06-13-2022 ambulatory Justin Mansoor Other [facility] Other Start: 06-13-2022 Telephone encounter Justin Mansoor [facility] Start: 06-06-2022 End: 06-06-2022 ambulatory Justin Mansoor Other [facility] Other Start: 06-06-2022 Office outpatient visit 25 minutes Justin Mansoor [facility] Start: 05-24-2022 End: 05-24-2022 ambulatory Justin Mansoor Other [facility] Other Start: 05-24-2022 Encounter by Mijn [employer] r link Justin Mansoor [facility] Start: 05-16-2022 End: 05-16-2022 ambulatory Justin Mansoor Other [facility] Other Start: 05-16-2022 Telephone encounter Justin Mansoor [facility] Start: 05-09-2022 End: 05-09-2022 ambulatory Justin Mansoor Other [facility] Other Start: 05-09-2022 Encounter by Mijn [employer] r link Justin Mansoor [facility] Start: 04-23-2022 End: 04-23-2022 ambulatory Justin Mansoor Other [facility] Other Start: 04-23-2022 Encounter by Mijn [employer] r link Justin Mansoor [facility] Start: 04-21-2022 End: 04-21-2022 ambulatory Justin Mansoor Other [facility] Other Start: 04-21-2022 Encounter by Mijn [employer] r link Justin Mansoor [facility] Start: 04-21-2022 Office outpatient visit 15 minutes Justin Mansoor [facility] Start: 04-03-2022 End: 04-03-2022 ambulatory Justin Mansoor Other [facility] Other Start: 04-03-2022 Encounter by Mijn [employer] r link Justin Mansoor [facility] Start: 03-24-2022 End: 03-24-2022 ambulatory Justin Mansoor Other [facility] Other Start: 03-24-2022 Telephone encounter Justin Mansoor [facility] Start: 03-23-2022 End: 03-23-2022 Emergency department patient visit Rodney Johnson Facility:[facility] Start: 03-23-2022 End: 03-23-2022 Emergency department patient visit [facility] Nina azalealuli [facility] Start: 03-07-2022 End: 03-07-2022 ambulatory Justin Mansoor Other [facility] Other Start: 03-07-2022 Encounter by Mijn [employer] r link Justin Mansoor [facility] Start: 02-10-2022 End: 02-10-2022 ambulatory Justin Mansoor Other [facility] Other Start: 02-10-2022 Encounter by Mijn Auto[employer] r link Justin Manosor [facility] Start: 01-24-2022 End: 01-24-2022 ambulatory Justin Mansoor Other [facility] Other Start: 01-24-2022 Nursing evaluation o f patient and report Justin Mansoor [facility] Start: 01-18-2022 End: 01-18-2022 ambulatory Justin Mansoor Other [facility] Other Start: 01-18-2022 Encounter by Mijn [employer] r link Justin Mansoor [facility] Start: 01-18-2022 Telephone encounter Justin Mansoor [facility] Start: 01-12-2022 End: 01-12-2022 ambulatory Justin Mansoor Other [facility] Other Start: 01-12-2022 Telephone encounter Justin Mansoor [facility] Start: 01-06-2022 End: 01-06-2022 ambulatory Justin Mansoor Other [facility] Other Start: 01-06-2022 Office outpatient visit 15 minutes Justin Mansoor [facility] Start: 01-06-2022 Telephone encounter Justin Mansoor [facility] Start: 12-14-2021 End: 12-14-2021 ambulatory Justin Mansoor Other [facility] Other Start: 12-14-2021 Encounter by compute r link Justin Mansoor [facility] Start: 12-02-2021 End: 12-02-2021 ambulatory Justin Mansoor Other [facility] Other Start: 12-02-2021 Office outpatient visit 15 minutes Justin Mansoor [facility] Start: 11-22-2021 End: 11-22-2021 ambulatory Justin Mansoor Other [facility] Other Start: 11-22-2021 Telephone encounter Justin Mansoor [facility] Start: 11-17-2021 End: 11-17-2021 ambulatory Justin Mansoor Other [facility] Other Start: 11-17-2021 Telephone encounter Justin Mansoor [facility] Start: 11-16-2021 End: 11-16-2021 ambulatory Justin Mansoor Other [facility] Other Start: 11-16-2021 Telephone encounter Justin Mansoor [facility] Start: 11-05-2021 End: 11-05-2021 ambulatory Justin Mansoor Other [facility] Other Start: 11-05-2021 Office outpatient visit 15 minutes Justin Mansoor [facility] Start: 10-22-2021 End: 10-22-2021 ambulatory Justin Mansoor Other [facility] Other Start: 10-22-2021 Encounter by compute r link Justin Mansoor [facility] Start: 10-05-2021 End: 10-05-2021 ambulatory Justin Mansoor Other [facility] Other Start: 10-05-2021 Office outpatient visit 15 minutes Justin Mansoor [facility] Start: 09-27-2021 End: 09-27-2021 ambulatory Justin Mansoor Other [facility] Other Start: 09-27-2021 Encounter by compute r link Justin Mansoor [facility] Start: 09-01-2021 End: 09-01-2021 ambulatory Justin Mansoor Other [facility] Other Start: 09-01-2021 Encounter by compute r link Justin Mansoor [facility] Start: 08-23-2021 End: 08-23-2021 ambulatory Johana Easterwood Other [facility] Other Start: 08-23-2021 Telephone encounter Johana Easterwood [facility] Start: 08-18-2021 End: 08-18-2021 ambulatory Justin Mansoor Other [facility] Other Start: 08-18-2021 Telephone encounter Justin Mansoor [facility] Start: 08-12-2021 End: 11-22-2021 Recurring Roma HAWKINS [facility] Start: 08-12-2021 End: 08-12-2021 Patient encounter procedure Brnadon SALAM [facility] Start: 08-05-2021 End: 08-05-2021 ambulatory Justin Mansoor Other [facility] Other Start: 08-05-2021 Encounter by vIPtela link Justin Mansoor [facility] Start: 06-21-2021 End: 06-21-2021 ambulatory Justin Mansoor Other [facility] Other Start: 06-21-2021 Telephone encounter Justin Mansoor [facility] Start: 06-08-2021 End: 06-08-2021 ambulatory Justin Mansoor Other [facility] Other Start: 06-08-2021 Office outpatient visit 15 minutes Justin Mansoor [facility] Start: 02-26-2021 End: 02-26-2021 ambulatory Justin Mansoor Other [facility] Other Start: 02-26-2021 Nursing evaluation o f patient and report Justin Mansoor [facility] Start: 02-26-2021 Telephone encounter Justin Mansoor [facility] Procedures Date Procedure Procedure Detail Performing [...] Immunization Date Immunization Notes Care Provider [facility] 01-24-2022 influenza virus vaccine, unspecified formulation Olena Mal [facility] 01-24-2022 influenza, injectable, quadrivalent, contains preservative Justin Mansoor Other [facility] Other 02-26-2021 influenza virus vaccine, unspecified formulation Olenanina CourtneyMal [facility] 02-26-2021 influenza, injectable, quadrivalent, contains preservative Justin Mansoor Other [facility] Other 02-15-2021 influenza virus vaccine, unspecified formulation Roma HAWKINS [facility] 02-11-2020 influenza virus vaccine, unspecified formulation Olenanina CourtneyMal [facility] 02-11-2020 influenza, injectable, quadrivalent, contains preservative Justin Mansoor Other [facility] Other 01-22-2019 influenza, injectable, quadrivalent, contains preservative Justin Mansoor Other [facility] Other 01-22-2019 influenza virus vaccine, unspecified formulation Olenanina CourtneyMal [facility] 12-08-2011 meningococcal ACWY vaccine, unspecified formulation Olena Mal [facility] 12-08-2011 tetanus toxoid, reduced diphtheria toxoid, and acellular pertussis vaccine, adsorbed Olena Mal [facility] 09-08-1998 DTaP, unspecified formulation Olena Mal [facility] 09-08-1998 measles, mumps and rubella virus vaccine Olena Mal [facility] 08-17-1994 measles, mumps and rubella virus vaccine Olena Mal [facility] 1993 hepatitis B vaccine, pediatric or pediatric/adolescen t dosage Olena Mal [facility] 1993 Hib, unspecified formulation Olena Mal [facility] 1993 Hib, unspecified formulation Olena Mal [facility] 1993 hepatitis B vaccine, pediatric or pediatric/adolescen t dosage Olena Mal [facility] 1993 Hib, unspecified formulation Olena Mal [facility] 1993 hepatitis B vaccine, pediatric or pediatric/adolescen t dosage Olena Mal [facility] NEGATED: Highlighted row has not occurred! 3 SARS-CoV-2 mRNA (tostevenameran 5y-11y) vaccine Román Dominguez [facility] [place] NEGATED: Highlighted row has not occurred! 9 influenza, injectable, quadrivalent, contains preservative Patient Objection Justin Max Other [facility] Other NEGATED: Highlighted row has not occurred! 9 influenza, injectable, quadrivalent, contains preservative Patient Objection Justin Mansoor Other [facility] Other NEGATED: Highlighted row has not occurred! 8 influenza, injectable, quadrivalent, contains preservative Patient Objection Justin Mansoor Other [facility] Other NEGATED: Highlighted row has not occurred! 8 influenza, injectable, quadrivalent, contains preservative Patient Objection Justin Mansoor Other [facility] Other NEGATED: Highlighted row has not occurred! 8 influenza, injectable, quadrivalent, contains preservative Patient Objection Justin Mansoor Other [facility] Other Payers Date Payer Category Payer Private Health Insurance [id number] 2022 Unknown [id number] 2022 Self-pay [id number] 2022 [facility] [id number] 2022 Unknown [id number] 1993 Unknown [id number] 2.16.8 40.1.850323.3.579.2.727 1993 Unknown [id number] 2.16.8 40.1.456872.3.579.2.727 1993 Unknown [id number] 2.16.8 40.1.362330.3.579.2.727 1993 Unknown [id number] 2.16.8 40.1.142486.3.579.2.727 1993 Unknown [id number] 2.16.8 40.1.410492.3.579.2.727 1993 Unknown [id number] 2.16.8 40.1.176867.3.579.2.727 1993 Unknown [id number] 2.16.8 40.1.112966.3.579.2.727 1993 Unknown [id number] 2.16.8 40.1.403973.3.579.2.727 1993 Unknown [id number] 2.16.8 40.1.576805.3.579.2.727 1993 Unknown [id number] 2.16.8 40.1.158734.3.579.2.727 1993 Unknown [id number] 2.16.84 0.1.109022.3.579.2.1259 1993 Unknown [id number] 2.16.840 .1.958012.3.579.2.1259 1993 Unknown [id number] 2.16.840 .1.560179.3.579.2.1259 Medicaid [employer] [id number] Unknown [facility] [id number] Unknown [id number] 2.16.8 40.1.939011.3.579.2.531 Unknown [id number] 2.16.8 40.1.244836.3.579.2.531 Unknown [id number] 2.16.8 40.1.910522.3.579.2.531 Unknown [id number] 2.16.8 40.1.895071.3.579.2.531 Social History Date Type Detail Facility Start: 08-12-2021 End: 11-09-2022 Tobacco smoking status Heavy tobacco smoker (finding) [employer] [facility] Other Comment on above: Quit 2 yrs ago Tobacco smoking status Never [facility] Comment on above: Quit 2 yrs ago Sex Assigned At Female [employer] [facility] Other Start: 1995 Sex Assigned At Female F [facility] Functional Status Date Assessment Result Facility 02-22-2023 Functional Status N/A [facility] 11-09-2022 Functional Status N/A [facility] 09-26-2022 Functional Status N/A [facility] 08-05-2022 Functional Status N/A [facility] [place] 07-27-2022 Functional Status N/A [facility] 03-23-2022 Functional Status N/A [facility] Clinical Notes 05-18-2020 to 04-05-2023 Note Date & Type Note Facility 04-05-2023 Evaluation note Encounter Date Diagnosis Assessment Notes Mar, Thoracic back pain (ICD-10 - M54.6) [facility] Other 11-08-2023 Evaluation + Plan noteExtracted from: Title:ED Note Author:Alphonso MAURICE, Dmitry Sharma te:02/22/23 Vomiting during (O 21.9: Vomiting of , unspecified) Orders: metoclopramide, 5 mg = 1 tab(s), Oral, q6hr, to use if zofran fails., X 7 day(s), # 20 tab(s), Refills(s) 0, Pharmacy: [facility], 158, cm, 02/22/23 12:17:00 EST, Height/Length Dosing, 87.3, kg, 02/22/23 12:17:00 EST, Weight Dosing ondansetron, 4 mg = 1 tab(s), Oral, q8hr, PRN Nausea/Vomiting, # 12 tab(s), Refills(s) 0, Pharmacy: [facility], 158, cm, 02/22/23 12:17:00 EST, Height/Length [...] Diff 07/27/22 * Comprehensive Metabolic Panel 07/27/22 [facility]11-08-2023 Hospital Discharge instructions Follow Up Care 02/22/2023 11:55:55 With:Joce DAVIDSON Address: [address] , [place] [address]- Business (1) When:02/25/2023 14:21:57 With:JUSTIN MAX Address: [facility] [address] [address]- Business (1) When:02/25/2023 14:21:48 Comments:Follow-up with your primary care provider in 3 to 5 days. If symptoms worsen, do not improve, or new symptoms arise please report back to emergency department for further evaluation. [facility]09-27-2023 Evaluation note* Encounter Date Diagnosis Assessment Notes Treatment Notes Treatment Clinical Notes Dec, Thoracic back pain (ICD-10 - M54.6) [facility] Other 09-15-2023 Evaluation note* Encounter Date Diagnosis Assessment Notes Treatment Notes Treatment Clinical Notes Dec, Migraine without aura and without status migrainosus, not intractable (ICD-10 - G43.009) [facility] Other 08-31-2023 Evaluation note* Encounter Date Diagnosis Assessment Notes Treatment Notes Treatment Clinical Notes Nov, Migraine without aura and without status migrainosus, not intractable (ICD-10 - G43.009) [facility] Other 08-28-2023 Evaluation note* Encounter Date Diagnosis [...] Z3A.09) Obviously continue to follow-up with OB. [facility] Other 08-01-2023 Evaluation note* Encounter Date Diagnosis [...] like her to discuss this with her ASSEMBLY ROOM SUPERVISOR prior to doing so. Patient was instructed to call should her ASSEMBLY ROOM SUPERVISOR be in aggrement with proceeding with trigger point injections. Additionally she will clarify what pain treatment measures including OTC treatments are acceptable to use during her . Anatomy of spine discussed in detail with patient in regard to patients condition. Nov, Muscle pain, lumbar (ICD-10 - M79.18) Nov, Chronic pain (ICD-10 - G89.29) Nov, Other Above note writ ten by Sabrina Cao LPN, [employer]. Edited and approved by Dr. William Payne MD. [facility] Other 07-28-2023 Evaluation note* Encounter Date Diagnosis Assessment Notes Treatment Notes Treatment Clinical Notes Oct, Obesity (BMI 30-39.9) (ICD-10 - E66.9) Discussed with patient that we certainly could do further medication, but patient again declines today. I think this is quite reasonable. Call with any concerns or change. [facility] Other 07-26-2023 Hospital Discharge instructions Patient Education [...] help quitting, ask your health careprovider. Take kwsr-yiw-vbfkthx and prescription medicines only as told by your health care provider. ?Do not use mfob-olw-kenyelo medicines in place of prescription medicines unless [...] help quitting, ask your health careprovider. Take ujyc-fkg-okidueq and prescription medicines only as told by your health care provider. Do not use mjrg-mld-zbuawec medicines in place of prescription medicines unless your health care provider approves. Limit your alcohol and caffeine intake. Keep all follow-up visits. This is important. This information is not intended to replace advice given to you by your health care provider. Make sure you discuss any questions you have with your health care provider. Document Revised: 11/12/2021 Document Reviewed: 11/12/2021 [employer] Patient Education 2022 [employer]. Follow Up Care 10/11/2022 13:11:28 With:Olena Resendez CNP Address: When:1 month [facility] 07-17-2023 Evaluation note* Encounter Date Diagnosis Assessment Notes Treatment Notes Treatment Clinical Notes Oct, Arthritis of lumbosacral spine (ICD-10 - M47.817) [facility] Other 07-07-2023 Evaluation note* Encounter Date Diagnosis Assessment Notes Treatment Notes Treatment Clinical Notes Oct, Arthritis of lumbosacral spine (ICD-10 - M47.817) [facility] Other 06-28-2023 Evaluation note* Encounter Date Diagnosis [...] pain management should she require something more. [facility] Other 06-15-2023 Evaluation note* Encounter Date Diagnosis Assessment Notes Treatment Notes Treatment Clinical Notes Sep, Right shoulder pain (ICD-10 - M25.511) Sep, Cervical pain (ICD-10 - M54.2) [facility] Other 06-14-2023 Note [id number]:[id number] 09-26-2022 Hospital Discharge instructions Patient Education 09/26/2022 14:06:02 [facility] NSAIDS-Nonsteroidal Anti-Inflammatory Medications (CUSTOM) Nonsteroidal Anti-Inflammatory Medications [...] pain neck pain Some NSAIDs are available upyy-mov-knzpnxv, without the need for a prescription. However, [...] than your doctor has prescribed. Follow the juom-rdf-wabkebw labels and do not exceed the recommended [...] help quitting, ask your health careprovider. Take nmkz-tcu-bmqpbru and prescription medicines only as told by your health care provider. ?Do not use sgtb-web-foeasuj medicines in place of prescription medicines unless [...] help quitting, ask your health careprovider. Take mljx-bac-hsbanov and prescription medicines only as told by your health care provider. Do not use pulj-uci-eqszoaf medicines in place of prescription medicines unless your health care provider approves. Limit your alcohol and caffeine intake. Keep all follow-up visits. This is important. This information is not intended to replace advice given to you by your health care provider. Make sure you discuss any questions you have with your health care provider. Document Revised: 11/12/2021 Document Reviewed: 11/12/2021 [employer] Patient Education 2022 Text A Cab. 09/26/2022 14:06:02 Upper Endoscopy, Adult, Care After [...] what activities are safe for you. Take ndbv-itk-xtjcpwg and prescription medicines only as told by [...] provider. Document Revised: 02/07/2020 Document Reviewed: 09/03/2018 [employer] Patient Education 2022 Text [employer]. Follow Up Care 07/27/2022 10:18:04 With:Roma HAWKINS Address: [address] [place] [address]. [address] [place] [address] [facility] (1) When: Unknown Comments:Dr Hawkins's office will call you to schedule follow up appointment [facility]06-12-2023 Evaluation + Plan noteExtracted from: Title:ANES Pre-operative Note - Endo Author:Sam Sandoval Jr., DO Date:09/26/22 Plan [employer]hesi[employer] (ASA) physical status classification: Class II. Anesthetic Preoperative Plan: Anesthesia General, and -TIVA. Future Scheduled Tests Laboratory* CBC w/ Auto Diff 07/27/22 * Comprehensive Metabolic Panel 07/27/22 [facility] [facility]* Encounter Date Diagnosis Assessment Notes [...] August, BMI 30.0-30.9,adult (ICD-10 - Z68.30) DDM [facility] -eRx sent. We will proceed with the third month and see patient back in 4 weeks for recheck. [facility] Other 05-31-2023 Evaluation note* Encounter Date Diagnosis [...] August, BMI 30.0-30.9,adult (ICD-10 - Z68.30) DDM [facility] -eRx sent. We will proceed with the third month and see patient back in 4 weeks for recheck. August, Obesity (BMI 30-39.9) (ICD-10 - E66.9) [facility] Other 05-10-2023 Evaluation note* Encounter Date Diagnosis Assessment Notes Treatment Notes Treatment Clinical Notes August, Degenerative disc disease, lumbar (ICD-10 - M51.36) [facility] Other 05-09-2023 Evaluation note* Encounter Date Diagnosis Assessment Notes Treatment Notes Treatment Clinical Notes August, Degenerative disc disease, lumbar (ICD-10 - M51.36) [facility] Other 05-03-2023 Evaluation note* Encounter Date Diagnosis [...] interested to see what pain management suggests. [facility] Other 05-02-2023 Evaluation note* Encounter Date Diagnosis Assessment Notes Treatment Notes Treatment Clinical Notes August, Degenerative disc disease, lumbar (ICD-10 - M51.36) [facility] Other 04-26-2023 Evaluation note* Encounter Date Diagnosis Assessment Notes Treatment Notes Treatment Clinical Notes Jul, Degenerative disc disease, lumbar (ICD-10 - M51.36) [facility] Other 04-21-2023 Hospital Discharge instructions Patient Education [...] ?Hypothyroidism. ?Polycystic ovarian syndrome (PCOS). ?Binge-eating disorder. ?[place] syndrome. Taking certain medicines, such as steroids, [...] food choices, such as grocery stores and [employer] markets. What are the signs or symptoms? [...] and how much exercise you get. Take bame-eyu-fatcpzl and prescription medicines only as told by [...] provider. Document Revised: 11/09/2021 Document Reviewed: 11/09/2021 [employer] Patient Education 2022 [employer]. [facility] 04-12-2023 Hospital Discharge instructions Patient Education 07/27/2022 [...] observation. Follow these instructions at home: Take szpg-gpn-ghptqil and prescription medicines only as told by [...] on the cause of the bleeding. Take abpx-bhf-lgpgrhf and prescription medicines only as told by [...] 03/31/2001 Document Revised: 11/14/2018 Document Reviewed: 11/14/2018 [employer] Patient Education [employer] Follow Up Care 07/11/2022 11:35:32 With:Olena Resendez CNP Address: When:1 to 2 weeks Comments:Following EGD/Colonoscopy. [facility] 04-04-2023 Evaluation note* Encounter Date Diagnosis Assessment Notes Treatment Notes Treatment Clinical Notes Jul, BMI 30.0-30.9,adult (ICD-10 - Z68.30) DDM [facility] -E Rx sent. No other change today. [...] Certain to continue to follow-up with psychiatry. [facility] Other 03-22-2023 Evaluation note* Encounter Date Diagnosis Assessment Notes Treatment Notes Treatment Clinical Notes Jun, Degenerative disc disease, lumbar (ICD-10 - M51.36) [facility] Other 03-13-2023 Evaluation note* Encounter Date Diagnosis Assessment Notes Treatment Notes Treatment Clinical Notes Jun, Low back pain, unspecified back pain laterality, unspecified chronicity, unspecified whether sciatica present (ICD-10 - M54.50) [facility] Other 03-10-2023 Evaluation note* Encounter Date Diagnosis Assessment Notes Treatment Notes Treatment Clinical Notes Jun, Degenerative disc disease, lumbar (ICD-10 - M51.36) [facility] Other 02-28-2023 Evaluation note* Encounter Date Diagnosis Assessment Notes Treatment Notes Treatment Clinical Notes May, Degenerative disc disease, lumbar (ICD-10 - M51.36) [facility] Other 02-27-2023 Evaluation note* Encounter Date Diagnosis Assessment Notes Treatment Notes Treatment Clinical Notes May, Migraine without aura and without status migrainosus, not intractable (ICD-10 - G43.009) [facility] Other 02-20-2023 Evaluation note* Encounter Date Diagnosis [...] deficit (ICD-10 - R41.840) Pt to see [id number] - she is to make appt online... [facility] Other 02-07-2023 Evaluation note* Encounter Date Diagnosis Assessment Notes Treatment Notes Treatment Clinical Notes May, Degenerative disc disease, lumbar (ICD-10 - M51.36) May, Seasonal allergies (ICD-10 - J30.2) [facility] Other 01-30-2023 Evaluation note* Encounter Date Diagnosis Assessment Notes Treatment Notes Treatment Clinical Notes Apr, Anxiety (ICD-10 - F41.9) [facility] Other 01-23-2023 Evaluation note* Encounter Date Diagnosis Assessment Notes Treatment Notes Treatment Clinical Notes Apr, Degenerative disc disease, lumbar (ICD-10 - M51.36) [facility] Other 01-07-2023 Evaluation note* Encounter Date Diagnosis Assessment Notes Treatment Notes Treatment Clinical Notes Apr, Migraine without aura and without status migrainosus, not intractable (ICD-10 - G43.009) [facility] Other 01-05-2023 Evaluation note* Encounter Date Diagnosis [...] therapy first. She voices agreement and understanding. [facility] Other 01-05-2023 Evaluation note* Encounter Date Diagnosis Assessment Notes Treatment Notes Treatment Clinical Notes Apr, Degenerative disc disease, lumbar (ICD-10 - M51.36) [facility] Other 12-18-2022 Evaluation note* Encounter Date Diagnosis Assessment Notes Treatment Notes Treatment Clinical Notes Mar, Degenerative disc disease, lumbar (ICD-10 - M51.36) [facility] Other 12-07-2022 Hospital Discharge instructions Patient Education [...] treatment. Follow these instructions at home: Take qful-fnj-gledoad and prescription medicines only as told by [...] 08/18/2016 Document Revised: 07/26/2019 Document Reviewed: 08/18/2016 [employer] Patient Education 2020 [employer]. 03/23/2022 15:45:11 Bloody Diarrhea Bloody Diarrhea Bloody [...] oral rehydration solution (ORS). This is an ojrn-dob-meetzwn medicine that helps return your body to [...] drinks, and soda. ?Avoid alcohol. Eat bland, uquo-jo-chlklk foods in small amounts as you are able. These foods include bananas, applesauce, rice, lean meats, toast, and crackers. Avoid spicy or fatty foods. Medicines Take hdpa-xfb-smqaeke and prescription medicines only as told by [...] water are not available, use a hand revolving field assembler. Others in the household should wash their [...] 04/03/2006 Document Revised: 09/13/2018 Document Reviewed: 09/13/2018 [employer] Patient Education 2020 [employer]. 03/23/2022 15:45:11 Rectal Bleeding, Jdyv-dj-Ytfk Rectal Bleeding Rectal bleeding is when blood [...] 12/14/2011 Document Revised: 03/16/2018 Document Reviewed: 05/29/2016 [employer] Patient Education 2020 [employer]. Follow Up Care 03/23/2022 13:43:37 With:Roma HAWKINS Address: [address] [place] [address] Business (1) When:03/26/2022 15:23:44 Comments:Follow-up with Dr. Hawkins for further evaluation of your blood in your stool. With:JUSTIN MAX Address: [address] [place] [address] Business (1) When:03/26/2022 15:23:32 Comments:Follow-up with your primary care provider in 3 to 5 days. If symptoms worsen, do not improve, or new symptoms arise please report back to emergency department for further evaluation. [facility]12-07-2022 Evaluation + Plan noteExtracted from: Title:ED Note Author:Dmitry Werner PA-C te:03/23/22 Blood in stool (K92.1: Torie de la cruz) Orders: ondansetron, 4 mg = 1 tab(s), Oral, q8hr, PRN Nausea/Vomiting, # 12 tab(s), Refills(s) 0, Pharmacy: [id number], 157, cm, 03/23/22 13:50:00 EST, Height/Length [...] Metabolic Panel 08/12/21 * C-Reactive Protein 08/12/21 [facility]11-21-2022 Evaluation note* Encounter Date Diagnosis Assessment Notes Treatment Notes Treatment Clinical Notes Feb, Degenerative disc disease, lumbar (ICD-10 - M51.36) [facility] Other 10-27-2022 Evaluation note* Encounter Date Diagnosis Assessment Notes Treatment Notes Treatment Clinical Notes Jan, Degenerative disc disease, lumbar (ICD-10 - M51.36) Jan, Anxiety (ICD-10 - F41.9) Jan, Seasonal allergies (ICD-10 - J30.2) [facility] Other 10-10-2022 Evaluation note* Encounter Date Diagnosis Assessment Notes Treatment Notes Treatment Clinical Notes Jan, Flu vaccine need (ICD-10 - Z23) [facility] Other 10-04-2022 Evaluation note* Encounter Date Diagnosis Assessment Notes Treatment Notes Treatment Clinical Notes Jan, Degenerative disc disease, lumbar (ICD-10 - M51.36) [facility] Other 09-22-2022 Evaluation note* Encounter Date Diagnosis Assessment Notes Treatment Notes Treatment Clinical Notes Dec, Viral upper respiratory tract infection (ICD-10 - J06.9) Discussed with patient that everything was normal but her symptoms certainly are significant. Therefore we will treat and patient will call with update. Dec, Degenerative disc disease, lumbar (ICD-10 - M51.36) [facility] Other 08-30-2022 Evaluation note* Encounter Date Diagnosis Assessment Notes Treatment Notes Treatment Clinical Notes Nov, Degenerative disc disease, lumbar (ICD-10 - M51.36) [facility] Other 08-18-2022 Evaluation note* Encounter Date Diagnosis Assessment Notes Treatment Notes Treatment Clinical Notes Nov, BMI 34.0-34.9,adult (ICD-10 - Z68.34) eRX sent. OARRS completed. Pt to call with any concerns. [facility] Other 08-08-2022 Evaluation note* Encounter Date Diagnosis Assessment Notes Treatment Notes Treatment Clinical Notes Nov, Seasonal allergies (ICD-10 - J30.2) [facility] Other 08-03-2022 Evaluation note* Encounter Date Diagnosis Assessment Notes Treatment Notes Treatment Clinical Notes Nov, Degenerative disc disease, lumbar (ICD-10 - M51.36) [facility] Other 08-02-2022 Evaluation note* Encounter Date Diagnosis Assessment Notes Treatment Notes Treatment Clinical Notes Nov, Anxiety (ICD-10 - F41.9) [facility] Other 07-22-2022 Evaluation note* Encounter Date Diagnosis Assessment Notes Treatment Notes Treatment Clinical Notes Oct, BMI 35.0-35.9,adult (ICD-10 - Z68.35) E Rx sent. No other change today. We will recheck again in 1 month. Oct, Seasonal allergies (ICD-10 - J30.2) Pt to add OTC antihistamine - also do nasal steroid spray every day - 2 puffs.... [facility] Other 07-08-2022 Evaluation note* Encounter Date Diagnosis Assessment Notes Treatment Notes Treatment Clinical Notes Oct, Degenerative disc disease, lumbar (ICD-10 - M51.36) [facility] Other 06-21-2022 Evaluation note* Encounter Date Diagnosis Assessment Notes Treatment Notes Treatment Clinical Notes Sep, BMI 36.0-36.9,adult (ICD-10 - Z68.36) E Rx sent. OARRs completed. We will see patient back in 1 month. We discussed side effects and outcomes. [facility] Other 06-13-2022 Evaluation note* Encounter Date Diagnosis Assessment Notes Treatment Notes Treatment Clinical Notes Sep, Degenerative disc disease, lumbar (ICD-10 - M51.36) [facility] Other 05-18-2022 Evaluation note* Encounter Date Diagnosis Assessment Notes Treatment Notes Treatment Clinical Notes August, Degenerative disc disease, lumbar (ICD-10 - M51.36) [facility] Other 05-09-2022 Evaluation note* Encounter Date Diagnosis Assessment Notes Treatment Notes Treatment Clinical Notes August, Poison danilo (ICD-10 - L23.7) [facility] Other 05-04-2022 Evaluation note* Encounter Date Diagnosis Assessment Notes Treatment Notes Treatment Clinical Notes August, Anxiety (ICD-10 - F41.9) August, Seasonal allergies (ICD-10 - J30.2) [facility] Other 04-28-2022 Evaluation + Plan note Future Scheduled Tests Laboratory* Sedimentation Rate Automated 08/12/21 * CBC w/ Auto Diff 08/12/21 * Comprehensive Metabolic Panel 08/12/21 * C-Reactive Protein 08/12/21 [facility]04-21-2022 Evaluation note* Encounter Date Diagnosis Assessment Notes Treatment Notes Treatment Clinical Notes Jul, Degenerative disc disease, lumbar (ICD-10 - M51.36) [facility] Other 03-07-2022 Evaluation note* Encounter Date Diagnosis Assessment Notes Treatment Notes Treatment Clinical Notes Jun, Bloody stool (ICD-10 - K92.1) [facility] Other 02-22-2022 Evaluation note* Encounter Date Diagnosis [...] for scoping. She voices agreement and understanding. [facility] Other 11-12-2021 Evaluation note* Encounter Date Diagnosis Assessment Notes Treatment Notes Treatment Clinical Notes Feb, Degenerative disc disease, lumbar (ICD-10 - M51.36) [facility] Other 11-12-2021 Evaluation note* Encounter Date Diagnosis Assessment Notes Treatment Notes Treatment Clinical Notes Feb, Need for influenza vaccination (ICD-10 - Z23) [facility] Other 02-01-2021 History general Narrative - Reported* Type Description Date Medical History degenerative disc disease Medical History anxiety Medical History COVID - May 2020 [facility] Other 02-01-2021 History general Narrative - Reported* Type Description Date Medical History degenerative disc disease Medical History anxiety Medical History COVID - May 2020 Medical History 5 weeks gestation [facility] Other Evaluation + Plan note Future Appointments Appointment Date:08/24/2021 11:15:00 AM Scheduled Provider: Location:[facility] Appointment Type:Surgery PAT COVID Testing Future Scheduled Tests Laboratory* Sedimentation Rate Automated 08/12/21 * CBC w/ Auto Diff 08/12/21 * Comprehensive Metabolic Panel 08/12/21 * C-Reactive Protein 08/12/21 [facility] Evaluation + Plan note Future Appointments Appointment Date:07/29/2022 01:00:00 PM Scheduled Provider: Location:.[facility] Appointment Type:US Abdominal/Pelvis (FT) Appointment Date:07/29/2022 06:00:00 PM Scheduled Provider: Location:.MRI Appointment Type:MRI Spine (FT) Appointment Date:09/26/2022 02:05:00 PM Scheduled Provider: Location:[facility] Appointment Type:Surgery FT Future Scheduled Tests Laboratory* Sedimentation Rate Automated 08/12/21 * CBC w/ Auto Diff 08/12/21 * CBC w/ Auto Diff 07/27/22 * Comprehensive Metabolic Panel 08/12/21 * Comprehensive Metabolic Panel 07/27/22 * C-Reactive Protein 08/12/21 Radiology* US Gallbladder 07/29/22 * MRI Spine Lumbar w/o Contrast 07/29/22 [facility] Evaluation + Plan note Future Appointments Appointment Date:09/26/2022 02:05:00 PM Scheduled Provider: Location:[facility] Appointment Type:Surgery FT Future Scheduled Tests Laboratory* Sedimentation Rate Automated 08/12/21 * CBC w/ Auto Diff 08/12/21 * CBC w/ Auto Diff 07/27/22 * Comprehensive Metabolic Panel 08/12/21 * Comprehensive Metabolic Panel 07/27/22 * [facility]Reactive [facility]ments Appointment Date:11/18/2022 08:30:00 AM Scheduled Provider: Location:[facility] Appointment Type:Surgery FT Future Scheduled Tests Laboratory* CBC w/ Auto Diff 07/27/22 * Comprehensive Metabolic Panel 07/27/22 [facility]No [facility] Other Evaluation noteNo assessment information available [facility] Work Phone: Evaluation noteNort [facility] Other [facility] Other History general Narrative - [facility] Other History general Narrative - [facility] Other Hospital course Narrative No data available for this section [facility] Hospital Discharge instructions No data available for this section [facility] Progress note No data available for this section [facility] Advance Directives No Advanced Directives Records Found [...] Refill Request1 month Follow uprefill lexaprorefill Tylenol [id number] month Follow up1 month Follow upNew Refill [...] potential MRI order, she did go to [place] [id number] and is awaiting testing for the adhd [...] and also counseling for the anxiety/ depression... [facility] healthubrel[facility] [place] APPROVALADHD testing/Referral ReqNew Refill [...] and also counseling for the anxiety/ depression... 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 [employer] [facility]. provides no warranty or guarantee of the accuracy or completeness of information in this document.
[2023-05-06 12:25] LABS: Estimated Average Glucose 117 mg/dL; Glycohemoglobin A1C 5.7 % (4.5-6.2)
== END 2023-05-06 10:26 | disposition home or self-care (01) ==
LOC: LAB 10:26
PROVIDERS: PCP Family Medicine; Visit Provider Obstetrics & Gynecology
DX: R73.09 Other abnormal glucose (principal)
CPT/HCPCS: 36415; 83036

== ENCOUNTER 2023-06-22 19:54 | Outpatient (REF) | payer OTHER, SELFPAY ==
--- OUTSIDE RECORDS SUMMARY | 2023-06-22 20:00 | XMS_ITS | CCD ---
Author Name Unknown Address [address] [place] [address] Organization [facility] Care Team Providers Care Wet End Supervisor Name Role Phone CHARLY MAXH Bernard Primary Care Physician [phone] Mansoor, Justin Unavailable Johana Duran Unavailable William Payne Unavailable Mansoor, DO Justin M. Primary Care Provider MD William Payne Attending Provider [phone] MANSOOR, JUSTIN M Admitting Unavailable MANSOOR, JUSTIN [...] Attending Unavailable Mal, Olena A Referring Unavailable Mansoor Justin OLIVO Primary Care Provider [phone] William Payne Attending Unavailable Mansoor, Justin M. Primary Care Unavailable William Payne Admitting Unavailable Mansoor, Justin M. Admitting Unavailable Mansoor, Justin M. Primary Care Unavailable MansoorJustin Attending Unavailable William Payne Attending Unavailable MansoorJustin Primary Care Unavailable William Payne Admitting Unavailable William Payne Attending Unavailable Justin Max Primary Care Unavailable William Payne Admitting Unavailable ANJALI VILLEDA Attending Unavailable JOCE GEORGE Attending Unavailable JOCE GEORGE Attending Unavailable ANJALI VILLEDA Attending Unavailable JOCE GEORGE Attending Unavailable JOCE GEORGE Attending Unavailable Allergies Allergy Classification Reported Allergen(s) Allergy Type Date of Onset Reaction(s) Facility (20 sources) Azithromycin; Translations: [azithromycin] Drug Allergy 3 Eruption (morphologic abnormality), Itching (finding) [facility] (20 sources) rizatriptan Drug Allergy nausea [facility] Other (20 sources) meloxicam Drug Allergy worse joint symptoms, nauseous [facility] Other (20 sources) Acetaminophen / Codeine Drug Allergy rash/facial swelling [facility] Other (6 sources) Codeine; Translations: [codeine] Drug Allergy 3 Eruption of skin (disorder) [facility] (20 sources) Diclofenac Drug Allergy nausea [facility] Other (1 source) Azithromycin; Translations: [Zithromax Z-Sixto] Drug Allergy [facility] (1 source) Acetaminophen Drug Allergy 3 [facility] (1 source) Azithromycin Drug Allergy 3 [facility] (1 source) Codeine Drug Allergy 3 [facility] (1 source) Diclofenac Drug Allergy 3 [facility] (1 source) meloxicam Drug Allergy 3 [facility] (1 source) rizatriptan Drug Allergy 3 [facility] Medications Current Medications Medication Drug Class(es) Dates Sig (Normalized) Sig (Original) acetaminophen 500 mg oral tablet (2 sources) take 1 tablet by mouth every [...] Oct, Active ARIPiprazole 5 mg oral tablet (10 sources) Atypical Antipsychotic Start: 10-14-2022 aripiprazole 5 mg Tab Refills(s) 0 Start Date: 11/09/22 Status: Ordered azithromycin 250 mg oral tablet (9 sources) Macrolide Antimicrobial Start: 01-06-2022 Zithromax Z-Sixto 250 MG as directed Orally daily for 5 days Dec, Active Blood Glucose Monitoring Suppl (D-Care Glucometer) w/Device kit (2 sources) Start: 05-23-2023 End: 05-22-2024 Blood Glucose Monitoring Suppl (D-Care Glucometer) w/Device kit Indications: Gestational diabetes mellitus (GDM), antepartum, gestational diabetes method of control unspecified , Elevated glucose tolerance test 1 kit in the morning. Use four times daily to check FSBS. In the morning prior to breakfast & 1 hour after each meal for a total of 4times daily.. 1 kit 0 05/23/2023 05/22/2024 Active cyclobenzaprine hydrochloride 10 mg oral tablet (20 sources) Muscle Relaxant Start: 10-06-2022 cyclobenzaprine (Flexeril) 10 MG tablet eletriptan 40 mg oral tablet (12 sources) Serotonin-1b and Serotonin-1d Receptor Agonist Start: 06-21-2022 take 1 tablet by mouth every two hours eletriptan (Relpax) 40 MG tablet Take 1 tablet by mouth at the onset of migraine, may repeat in 2 hrs 0 06/21/2022 Active escitalopram 20 mg oral tablet (20 [...] Ordered Start: 10-16-2020 take 1 capsule by [facility] every twenty-four hours Esomeprazole Magnesium 20 MG 1 capsule Orally Once a day for 30 day(s) Oct, Active famotidine 20 mg oral tablet (4 sources) Histamine-2 Receptor Antagonist take 1 tablet by mouth every twenty-four hours Pepcid 20 MG 1 tablet at bedtime as needed Orally Once a day Active isopropyl alcohol 0.7 ml/ml medicated pad (2 sources) Start : 05-23 Alcohol Swabs (Alcohol Prep Pad) 70 % pads Indications: Gestational diabetes mellitus (GDM), antepartum, gestational diabetes method of control unspecified , Elevated glucose tolerance test Apply 1 Pad topically in the morning. Use four times daily to check FSBS.. 150 each 3 05/23/2023 Active magnesium sulfate 225 MG / potassium chloride 188 MG / sodium sulfate 1479 MG Oral Tablet [Sutab] (3 sources) Start : 07-27 take 1 tablet by mouth once Sutab oral tablet See Instructions, 1 EA, Refill(s) 0, Please follow instructions per packaging and physician's handout, [facility], 157, cm, 07/27/22 9:34:00 EDT, [...] day(s), # 20 tab(s), Refills(s) 0, Pharmacy: [facility], 158, cm, 02/22/23 12:17:00 EST, Height/Length Dosing, 87.3, kg, 02/22/23 12:17:00 EST, Weight Dosing Start Date: 02/22/23 Stop Date: 03/01/23 Status: Ordered montelukast 10 mg oral tablet (20 sources) Leukotriene Receptor Antagonist Start : 02-03 take 1 tablet by mouth in the morning montelukast (Singulair) 10 MG tablet Take 10 mg by mouth in the morning. 0 2022 Active omeprazole 40 mg delayed release oral capsule (20 sources) Proton Pump Inhibitor Start : 09-15 take 1 capsule by mouth once daily omeprazole 40 mg Cap-DR 40 mg = 1 cap(s), Oral, Daily, # 90 cap(s), Refills(s) 3, Pharmacy: [facility], 158, cm, 11/09/22 13:50:00 EDT, Height/Length Dosing, 76.2, kg, 11/09/22 13:50:00 EDT, Weight Dosing Start Date: 12/29/22 Status: Ordered take 1 capsule by mouth once naima ly Omeprazole 20 MG 1 capsule 30 minutes before morning meal Orally Once a day Active ondansetron 4 mg oral tablet (11 sources) Serotonin-3 Receptor Antagonist Start: 04-25-2023 End: 2023 take 1 tablet by mouth twice daily as needed for nausea ondansetron (Zofran) 4 MG tablet Indications: Second trimester Take 1 tablet (4 mg) by mouth 2 (two) times a day as needed for nausea 20 tablet 5 04/25/2023 2023 Active Start: 11-22-2022 take 1 tablet by shelby th every eight hours as needed Zofran ODT [...] to colonoscopy as instructed by Dr. Hawkins., [facility], 157, cm, 08/12/21 12:58:00 EDT, Height/Length Dosing, 89.7, kg, 08/12/21 12:58:00 EDT, Weight Dosing Start Date: 08/12/21 Stop Date: 09/02/21 Status: Ordered predniSONE 20 mg oral tablet (10 sources) Start: 01-06-2022 take 3 tablets by mouth every twenty-four hours predniSONE 20 MG 3 tablet Orally Once a day for 6 day(s) Dec, Active promethazine hydrochloride 12.5 mg oral tablet (2 sources) Phenothiazine Start: 04-25-2023 End: 07-24-2023 take 1 tablet by mouth every four hours promethazine (Phenergan) 12.5 MG tablet Indications: Second trimester Take 1 tablet (12.5 mg) by mouth every 4 (four) hours 180 tablet 1 04/25/2023 07/24/2023 Active 24 hr QUEtiapine 50 mg extended release oral tablet (2 sources) Atypical Antipsychotic Start: 12-15-2022 take 1 tablet by mouth once daily SEROquel XR 50 MG 24 hr tablet Take 50 mg by mouth 1 (one) time each day at the same time. 0 12/15/2022 Active rizatriptan 10 mg disintegrating oral tablet (3 sources) Serotonin-1b and Serotonin-1d Receptor Agonist Start: 05-21-2022 take 1 tablet by mouth every two hours rizatriptan RESIN SHAVER (Maxalt-RESIN SHAVER) 10 MG disintegrating tablet Dissolve 1 tablet in mouth at the onset of migraine - may repeat in 2 hrs 0 05/21/2022 Active Sutab 4965-975-249 MG tablet (2 sources) Start: 08-25-2022 Sutab 7669-635-696 MG tablet TENS Unit (20 sources) Start: 09-02-2022 Start: [...] May, Active ubrogepant 100 mg oral tablet (9 sources) Start: 06-06-2022 take 1 tablet by shelby th every twenty-four hours as needed Ubrelvy 100 MG tablet Take 1 tablet by mouth Daily as needed (migraines). 0 11/09/2022 Active Zofran ODT 4 mg Tab-Dis (9 sources) Start: 02-22-2023 take 1 tablet by shelby th every eight hours as needed for nausea Zofran ODT 4 mg Tab-Dis 4 mg = 1 tab(s), Oral, q8hr, PRN Nausea/Vomiting, # 12 tab(s), Refills(s) 0, Pharmacy: [facility], 158, cm, 02/22/23 12:17:00 EST, Height/Length Dosing, 87.3, kg, 02/22/23 12:17:00 EST, Weight Dosing Start Date: 02/22/23 Status: Ordered Start: 03-23-2022 take 1 tablet by shelby th every eight hours as needed for nausea Zofran ODT 4 mg Tab-Dis 4 mg = 1 tab(s), Oral, q8hr, PRN Nausea/Vomiting, # 12 tab(s), Refills(s) 0, Pharmacy: [facility], 157, cm, 03/23/22 13:50:00 EST, Height/Length [...] Not-Taking Start: 08-17-2022 take 1 tablet by shelby th twice daily as needed diclofenac (Voltaren) 50 MG EC tablet Take 50 mg by mouth 2 (two) times a day as needed 0 08/17/2022 Active fexofenadine hydrochloride 180 mg oral tablet (9 [...] without cholecystitis without obstruction] Onset: 3 Episodic Diabetes mellitus without complication (2 sources) Abnormal glucose tolerance test; Translations: [Other abnormal glucose] 05-23-2023 Episodic Diabetes or abnormal glucose tolerance complicating ; childbirth; or the puerperium (2 sources) Gestational diabetes mellitus; Translations: [Gestational diabetes mellitus in , unspecified control] 05-23-2023 Episodic Esophageal disorders (20 sources) Gastroesophageal reflux [...] mass index (BMI) 29.0-29.9, adult Episodic Other and delivery including normal (2 sources) Third trimester ; Translations: [Encounter for supervision of normal , unspecified, third trimester] 05-18-2023 Episodic Other upper respiratory disease (20 sources) [...] disc] Onset: 1 Resolved: 2 03-20-2016 Chronic Substance-related disorders (8 sources) Smoker 03-23-2022 Chronic [...] except food Onset: 08-23-2021 Resolved: 08-23-2021 Episodic Spondylosis; intervertebral disc disorders; other back problems (15 sources) Chronic low back pain; Translations: [Cervicalgia] Onset: 10-06-2022 07-19-2016 Episodic Unclassified (10 sources) Onset: 04-17-2012 Resolved: 12-27-2012 10-23-2014 Unclassified (1 source) Low back pain, unspecified back pain laterality, unspecified chronicity, unspecified whether sciatica present M54.50 Results Test Name Value Interpretation Reference Range Facility Urinalysis macro (dipstick) panel (U)on 05-23-2023 Bilirubin, UA Negative Negative - 4(70) +++ mg/dL [facility] Blood, UA Negative Negative - 50 Osmany/mcL [facility] Clarity, UA Clear [facility] Color, UA Yellow [facility] Glucose, UA Positive Negative - 1999(110) ++++ mg/dL [facility] Interpretation and review of laboratory results Abnormal [facility] Ketones, UA Negative Negative - 160(16) ++++ mg/dL [facility] Leukocytes, UA Positive Negative - 500+++ Haider/mcL [facility] Nitrite, UA Negative Negative - Positive [facility] pH, UA 7.0 5 - 9 [facility] Protein, UA Negative Negative - 2000(20) ++++ mg/dL [facility] Spec Grav, UA 1.020 1 - 1.03 [facility] Urobilinogen, UA 1.0 0.2 - 12 mg/dL [facility] Urineon 02-24-2023 Bacteria identified Cx Nom [...] Locations R1: This test was performed at: [facility], [address] [place] [address], [address]- , , Normal [facility] Comment on above: Performed By: #### 2 [id number], [id number] #### [facility] [address] [place] [address] Auto Diffon 02-22-2023 Basophils/100 WBC (Bld) 0.5 % Normal 0.0-2.0 [facility] Comment on above: Order Comment: Order Added by Discern Expert. Performed By: #### 2 498494, 9755411, 5519120, 03103620, 4276537, 8160062 #### [facility] [address] [place] [address] Basophils/Leukocyt es Auto (Bld) [Pure # fraction] 0.0 E9/L Normal 0.0-0.2 [facility] Comment on above: Order Comment: Order Added by Discern Expert. Performed By: #### 2 603863, 1350176, 6687336, 66296928, 5266132, 6272683 #### [facility] [address] [place] [address] Eosinophils/100 WBC (Bld) 1.8 % Normal 0.0-8.0 [facility] Comment on above: Order Comment: Order Added by Discern Expert. Performed By: #### 2 743509, 7592635, 2458728, 31542181, 8506258, 4713286 #### [facility] [address] [place] [address] Eosinophils/Leukoc ytes Auto (Bld) [Pure # fraction] 0.2 E9/L Normal 0.0-0.5 [facility] Comment on above: Order Comment: Order Added by Discern Expert. Performed By: #### 2 437288, 8290625, 2624395, 68652556, 3410768, 0415418 #### [facility] [address] [place] [address] Lymphocytes/100 WBC (Bld) 19.0 % Normal 14.0-50.0 [facility] Comment on above: Order Comment: Order Added by Discern Expert. Performed By: #### 2 842175, 2180623, 6714367, 31018716, 9156619, 0468363 #### [facility] [address] [place] [address] Lymphocytes/Leukoc ytes Auto (Bld) [Pure # fraction] 1.6 E9/L Normal 1.0-4.0 [facility] Comment on above: Order Comment: Order Added by Discern Expert. Performed By: #### 2 281354, 1441400, 4088641, 95998992, 9225783, 0640398 #### [facility] [address] [place] [address] Monocytes/100 WBC (Bld) 7.4 % Normal 4.0-14.0 [facility] Comment on above: Order Comment: Order Added by Discern Expert. Performed By: #### 2 144448, 6581313, 8499958, 29714135, 3328702, 0423509 #### [facility] [address] [place] [address] Monocytes/Leukocyt es Auto (Bld) [Pure # fraction] 0.6 E9/L Normal 0.2-1.0 [facility] Comment on above: Order Comment: Order Added by Discern Expert. Performed By: #### 2 922746, 0450486, 8245241, 20707466, 1385275, 0701339 #### [facility] [address] [place] [address] Neutrophils/100 WBC (Bld) 71.3 % Normal 36.0-75.0 [facility] Comment on above: Order Comment: Order Added by Discern Expert. Performed By: #### 2 094044, 8518370, 0267131, 77201890, 6083963, 5003060 #### [facility] [address] [place] [address] Neutrophils/Leukoc ytes Auto (Bld) [Pure # fraction] 6.0 E9/L Normal 2.0-7.5 [facility] Comment on above: Order Comment: Order Added by Discern Expert. Performed By: #### 2 035007, 9591887, 8987118, 42040654, 5691915, 1492837 #### [facility] [address] [place] [address] BMPon 02-22-2023 Creatinine [Mass/Vol] 0.5 mg/dL Normal 0.5-1.3 [facility] Comment on above: Performed By: #### 2 745460, 2006713, 3943015, 84853112, 3700224, 7210403 ####[facility] [address] [place] [address] Urea nitrogen [Mass/Vol] 6 mg/dL Normal 5-21 [facility] Comment on above: Performed By: #### 2 635217, 9922005, 2005656, 34469443, 1678530, 7220140 ####[facility] [address] [place] [address] Urea nitrogen/Creatinin e [Mass ratio] 12 No Units Normal 10-20 [facility] Comment on above: Performed By: #### 2 272233, 5912985, 1649142, 10321464, 8797831, 8568125 ####[facility] [address] [place] [address] Anion gap [Moles/Vol] 9 mmol/L Normal 6-16 [facility] Comment on above: Performed By: #### 2 471879, 5376525, 9960393, 82899481, 7476726, 8680593 ####[facility] [address] [place] [address] Calcium [Mass/Vol] 8.8 mg/dL Low 8.9-11.1 [facility] Comment on above: Performed By: #### 2 971797, 4699269, 5491905, 26566742, 1412766, 4719267 ####[facility] [address] [place] [address] Chloride [Moles/Vol] 108 mmol/L Normal 101-111 [facility] Comment on above: Performed By: #### 2 241984, 6666609, 9746094, 03466689, 2842792, 9974798 ####[facility] [address] [facility] [place] [address] CO2 [Moles/Vol] 23 mmol/L Normal 21-31 [facility] Comment on above: Performed By: #### 2 685717, 2842358, 5476532, 48047664, 5775536, 1631958 ####[facility] [address] [place] [address] Glucose [Mass/Vol] 93 mg/dL Normal 55-199 [facility] Comment on above: Result Comment: If t his glucose result represents a fasting glucose, interpretation should refer to the following reference range: 55-99 mg/dL Performed By: #### 2 023770, 3468825, 6153047, 04808853, 0453112, 3112907 ####[facility] [address] [place] [address] Potassium [Moles/Vol] 3.4 mmol/L Low 3.5-5.3 [facility] Comment on above: Performed By: #### 2 312740, 2844183, 4482520, 72601825, 0558251, 9102449 ####[facility] [address] [place] [address] Sodium [Moles/Vol] 137 mmol/L Normal 135-145 [facility] Comment on above: Performed By: #### 2 034338, 2958860, 8786351, 48268165, 4068805, 5253002 ####[facility] [address] [place] [address] CBC w/ Auto Diffon 3 Erythrocyte distribution width (RBC) [Ratio] 12.6 % Normal 10.9-14.2 [facility] Comment on above: Performed By: #### 2 858105, 5093862, 1690838, 23387499, 8667192, 1628744 #### [facility] [address] [place] [address] Hematocrit (Bld) [Volume fraction] 35.9 % Normal 34.0-46.0 [facility] Comment on above: Performed By: #### 2 430834, 6902755, 2684270, 93507442, 9712864, 0934777 #### [facility] [address] [place] [address] Hemoglobin (Bld) [Mass/Vol] 12.0 g/dL Normal 12.0-16.0 [facility] Comment on above: Performed By: #### 2 220142, 5906354, 8562423, 99683621, 9640336, 9493335 #### [facility] [address] [place] [address] MCH (RBC) [Entitic mass] 32.7 pg Normal 27.0-34.0 [facility] Comment on above: Performed By: #### 2 433901, 5811500, 4995162, 56692065, 4043712, 9020562 #### [facility] [address] [place] [address] MCHC (RBC) [Mass/Vol] 33.4 g/dL Normal 31.4-36.0 [facility] Comment on above: Performed By: #### 2 879653, 6594367, 6803784, 97752332, 0343208, 8928238 #### [facility] [address] [place] [address] MCV (RBC) [Entitic vol] 97.8 fL Normal 80.0-100.0 [facility] Comment on above: Performed By: #### 2 528747, 6243241, 6899955, 44728687, 9865421, 7417416 #### [facility] [address] [place] [address] Platelet mean volume (Bld) [Entitic vol] 7.9 fL Normal 6.4-10.8 [facility] Comment on above: Performed By: #### 2 760071, 5336249, 4903298, 80948208, 5483297, 8267298 #### [facility] [address] [place] [address] Platelets (Bld) [#/Vol] 323.0 E9/L Normal 150.0-500.0 [facility] Comment on above: Performed By: #### 2 381775, 7483433, 6400815, 83878283, 8399496, 8606198 #### [facility] [address] [place], [place] [address] RBC (Bld) [#/Vol] 3.7 E12/L Low 4.3-5.9 [facility] Comment on above: Performed By: #### 2 922860, 8978161, 6087713, 21919114, 9168965, 4390974 #### [facility] [address] [place] [address] WBC corrected for nucl RBC Auto (Bld) [#/Vol] 8.4 E9/L Normal 4.0-11.0 [facility] Comment on above: Performed By: #### 2 431699, 5102605, 4063297, 11581746, 1472143, 9809953 #### [facility] [address] [place] [address] CHEMISTRYOrdered By: SYSTEM SYSTEM on 02-22-2023 Albumin [...] 130 mL/min/1.73 m2 Normal >=59mL/min/1.7 3 m2 FT Chem S Comment on above: Interpretive Data: C hronic kidney disease could be indicated at eGFR's of less than 60 mL/min/1.73m2. Kidney failure is indicated at less than 15 mL/min/1.73m2. Globulin (S) [Mass/Vol] 3.2 g/dL Normal 1.4 - 4.0 gm/dL [facility] [place]isol Glucose [Mass/Vol] 93 mg/dL Normal 55 [...] 6 mg/dL Normal 5 - 21 mg/dL [facility] [place]isol Urea nitrogen/Creatinin e [Mass ratio] 12 mg/mg Normal 10 - 20 FT Remisol Consent for Treatmenton Consent for Treatment [id number] Normal [facility] Discharge Instructionson Discharge Instructions [id number] Normal [facility] ED Clinical Summaryon 2022 ED Clinical Summary [place] [id number] ED Clinical Summary Person Information Name: BERENICE SANTOS/[facility] Age: 27 Years : 1995 Sex: Female Language: Indian PCP: JUSTIN MAX DO Marital Status: Visit [...] 02/22/2023 14:31:11 02/22/2023 14:31:11 02/22/2023 14:31:11 ADDRESS: [address] [place] [address] [address] [place] [id number] [facility] DOC NOTES: MEDICAL INFORMATION: Prescriptions Given: New Medications [facility], [address] [place], [place] [id number], [phone] metoclopramide (Reglan 5 mg Tab) 1 Tablets By Mouth every 6 hours for 7 Days. to use if zofran fails.. Refills: 0. Medications to Continue Taking That Have Changed [facility] [address], [place] [id number], [phone] START: ondansetron (Zofran ODT 4 mg Tab-Dis) [...] Instructions: Follow up: With: Address: When: Joce GEORGE [facility], [address] [place] [address] , [place] [address] Business (1) In 3 days 02/25/2023 With: Address: When: JUSTIN MANSOOR [address] [place], [place] [id number] Business (1) In 3 days 02/25/2023 Comments: Follow-up with your primary care provider in 3 to 5 days. If symptoms worsen, do not improve, or new symptoms arise please report back to emergency department for further evaluation. DIAGNOSIS: Vomiting during Normal [facility] ED Note-Physicianon 02-23-20 ED Note-Physician Basic Information Time Seen: Rodney Johnson M.D. 02/22/2023 12:26 Chief Complaint patient c/o nausea and vomiting that started 48 hours ago. patient states that she is unable to keep anything down. 19 wks . denies vaginal bleeding, feeling occasional abdominal cramping. OB Dr. george History of Present Illness 27-year-old female reports [...] Reports that she does follow-up with Dr. 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 Is appointment next week. Reports that [...] and Complexity of Problems Differential Diagnosis: [] [facility] Data External documents reviewed: [] My [...] in the emergency department. Discussed follow-up with RISK MANAGER. Discussed return precautions. Follow-up with your [...] day(s), # 20 tab(s), Refills(s) 0, Pharmacy: [facility], 158, cm, 02/22/23 12:17:00 EST, Height/Length Dosing, 87.3, kg, 02/22/23 12:17:00 EST, Weight Dosing ondansetron, 4 mg = 1 tab(s), Oral, q8hr, PRN Nausea/Vomiting, # 12 tab(s), Refills(s) 0, Pharmacy: [facility], 158, cm, 02/22/23 12:17:00 EST, Height/Length [...] PRN Follow-up With When Contact Information Joce GEORGE In 3 days 02/25/2023 EST [facility] [address] [facility] , [place] [address]- Business (1) Additional Instructions: JUSTIN MAX In 3 days 02/25/2023 EST [facility]jo [address] [place] [address]- Business (1) Additional Instructions: Follow-up with your primary care provider in 3 to 5 days. If symptoms worsen, do not improve, (more content not included)... Normal [facility] Comment on above: Result Comment: Elec tronically Signed By: Dmitry Werner PA-C\.br\Date and Time Signed: 02/22/23 14:50 EST\.br\Electronically Co-Signed By: Rodney Johnson M.D.\.br\Date and Time Co-Signed: 02/22/23 16:24 EST ED Patient Education Noteon 02-22-2023 ED Patient Education Note Normal [facility] ED Patient Summaryon 023 ED Patient Summary (Inserted Image. Laureen ble to display) [address] [address] Patient Discharge Instructions Person Information Name: BERENICE SANTOS Age: 27 Years Arrival Date: 02/22/2023 11:54:35 Discharge Diagnosis: Vomiting during Primary Care Physician: JUSTIN MAX DO Provider Information Primary Provider: Rodney Johnson M.D. Advanced Senior Partner:None The exam and treatment you received in the Emergency Department were for an urgent problem and are not intended as complete care. It is important that you follow up with a doctor, nurse practitioner, or physician?s hospital aides and assistants teacher for ongoing care. If your symptoms become worse or you do not improve as expected and you are unable to reach your usual health care provider, you should return to the Emergency Department. We are available 24 hours a day. DANIELLEBERENICE JARVIS has been given the following list of patient education materials, prescriptions and follow-up instructions: Follow-up Instructions: With: Address: When: Joce Carlton Replaced By [facility], [address] [facility] , [place] [address] Business (1) In 3 days 02/25/2023 With: Address: When: JUSTIN Dhillon MIMI [address] [place] [address] Business (1) In 3 days 02/25/2023 Comments: [...] opioids can be used to help relieve uqdltmck-qr-zgersc pain and are often prescribed following a [...] Drug A (more content not included)... Normal [facility] HEMATOLOGYOrdered By: SYSTEM SYSTEM on 02-22-2023 Basophils/100 [...] Bilirubin.indirect [Mass or moles/Vol] UTC Abnormal 0.1-0.9 [facility] Comment on above: Result Comment: Resu lt verified by Discern Rule. Performed result UTC (Unable to Calculate) was sent as an Alpha code due the inability to calculate a valid numeric value. Performed By: #### 2 941398, 6767826, 2576199, 63537774, 2521176, 8528558 ####[place] [address] [place] [address] Albumin [Mass/Vol] 3.4 g/dL Normal 3.3-5.0 [facility] Comment on above: Performed By: #### 2 008069, 6369326, 7510848, 86448390, 2469644, 5454933 ####[place] [address] [place] [address] Albumin/Globulin (S) [Mass conc ratio] 1.1 Normal 1.1-2.2 [facility] Comment on above: Performed By: #### 2 846286, 7330229, 5672262, 13141458, 4461300, 4227491 ####[place] [address] ALP [Catalytic activity/Vol] 35 Int._Unit/L Normal 21-98 [facility] Comment on above: Performed By: #### 2 320657, 5164819, 6875830, 90583444, 0024968, 6129212 ####[place] [address] ALT No additional P-5'-P [Catalytic activity/Vol] 13 Int._Unit/L Normal 6-46 [facility] Comment on above: Performed By: #### 2 481883, 2216695, 6799546, 27994615, 9749446, 6801741 ####[address] [place] [address] AST [Catalytic activity/Vol] 13 Int._Unit/L Normal 5-43 [facility] Comment on above: Performed By: #### 2 766788, 0066892, 4858704, 72734443, 0897627, 0584552 ####[place] [address] [place] [address] Bilirubin [Mass/Vol] 0.2 mg/dL Normal 0.0-1.1 [facility] Comment on above: Performed By: #### 2 914018, 0900910, 5912286, 66429592, 3556178, 0586030 ####[facility] [address] [place] [address] Globulin (S) [Mass/Vol] 3.2 g/dL Normal 1.4-4.0 [facility] Comment on above: Performed By: #### 2 886648, 8025258, 4521200, 88977795, 8147639, 1422881 ####[facility] [address] [place] [address] Protein [Mass/Vol] 6.6 g/dL Normal 6.0-7.8 [facility] Comment on above: Performed By: #### 2 424351, 9605087, 3393029, 23671784, 7611676, 1254283 ####[facility] [address] [place] [address] Bilirubin.direct [Mass/Vol] mg/dL Normal 0.1-0.4 [facility] Comment on above: Performed By: #### 2 834323, 7699295, 1545994, 86791820, 4623386, 3698723 ####[facility] [address] [place] [address] Lipase Levelon 02-22-2023 Lipase [Catalytic activity/Vol] 25 U/L Normal 13-58 [facility] Comment on above: Performed By: #### 2 574585, 9438035, 2565459, 88573848, 4604255, 6171469 ####[facility] [address] [place] [address] UA With Cult Reflexon 2022 Bacteria LM Ql (Urine sed) TRACE Normal Trace [facility] Comment on above: Performed By: #### 2 902059, 22505908 #### [facility] [address] [place] [address] Bilirubin Ql (U) Negative Normal Negative [facility] Comment on above: Performed By: #### 2 553081, 86332273 #### [facility] [address] [place] [address] Clarity (U) CLEAR Normal Clear [facility] Comment on above: Performed By: #### 2 498835, 69009468 #### [facility] [address] [place] [address] Color (U) YELLOW Normal Yellow [facility] Comment on above: Performed By: #### 2 955962, 14094430 #### [facility] [address] [place] [address] Crystals LM Ql (Urine sed) Present Normal [facility] Comment on above: Performed By: #### 2 871218, 05209562 #### [facility] [address] [place] [address] Epithelial cells.squamous LM.HPF (Urine sed) [#/Area] 5-8 Normal 0-2 [facility] Comment on above: Performed By: #### 2 467964, 36019009 #### [facility] [address] [place] [address] Glucose Test strip (U) [Mass/Vol] Negative Normal Negative [facility] Comment on above: Performed By: #### 2 756048, 59930969 #### [facility] [address] [place] [address] Hemoglobin Ql (U) Negative Normal Negative [facility] Comment on above: Performed By: #### 2 603576, 35399989 #### [facility] [address] [place] [address] Ketones (U) [Mass/Vol] 3+ Abnormal Negative [facility] Comment on above: Performed By: #### 2 729473, 29559504 #### [facility] [address] [place] [address] [place].plasma/Lit hium.RBC (Bld) [Mass ratio] 0-3 Normal 0-3 [facility] Comment on above: Performed By: #### 2 229413, 19024522 #### [facility] [address] [place] [address] Mucus Ql (Urine sed) TRACE Normal [facility] Comment on above: Performed By: #### 2 430703, 45278234 #### [facility] [address] [place] [address] Nitrite Ql (U) Negative Normal Negative [facility] Comment on above: Performed By: #### 2 946036, 61783213 #### [facility] [address] [place] [address] pH (U) 7.0 [pH] Invalid Interpretation Code 5.0-9.0 [facility] Comment on above: Performed By: #### 2 559699, 63734178 #### [facility] [address] [place] [address] Protein (U) [Mass/Vol] Negative Normal Negative [facility] Comment on above: Performed By: #### 2 566081, 69262913 #### [facility] [address] [place] [address] Specific gravity (U) [Rel density] 1.015 Invalid Interpretation Code 1.005-1.030 [facility] Comment on above: Performed By: #### 2 139500, 40622859 #### [facility] [address] [place] [address] Type of Urine collection method Clean Catch Normal [facility] Comment on above: Performed By: #### 2 973865, 99559150 #### [facility] [address] [place] [address] Urobilinogen Qn (U) 0.2 {Chiara'U}/dL Normal 0.0-1.0 [facility] Comment on above: Performed By: #### 2 393972, 36556091 #### [facility] [address] [place] [address] WBC Auto Ql (U) 1+ Abnormal Negative [facility] Comment on above: Performed By: #### 2 702039, 99732728 #### [facility] [address] [place] [address] WBC LM.HPF (Urine sed) [#/Area] 0-5 Normal 0-5 [facility] Comment on above: Performed By: #### 2 630945, 87285591 #### [facility] [address] [place] [address] URINALYSISOrdered By: Hilda Yeh on 02-22-2023 Bacteria [...] Interpretation Code Negative [facility] UA Auto SS [place].plasma/Lit hium.RBC (Bld) [Mass ratio] 0-3 /HPF Normal [...] PM) Invalid Interpretation Code 1.005 - 1.030 [facility]A Auto SS UA Spec Desc Clean Catch (02/22/23 12:21 PM) Normal [facility] [place] UA Auto SS Urobilinogen Qn (U) 0.1100019 {Chiara'U}/dL Normal 0.0 - 1.0 EU/dL [facility] UA Auto SS WBC Auto Ql (U) 1+ *ABN* (02/22/23 12:21 PM) Invalid Interpretation Code Negative [facility] [place] UA Auto SS WBC LM.HPF (Urine sed) [#/Area] 0-5 /HPF Normal 0-5/HPF [facility] [place] UA Auto SS eGFRon 02-22-2023 GFR/1.73 sq M.predicted among non-blacks MDRD (S/P/Bld) [Vol rate/Area] 130 mL/min/1.73 m2 Normal >=59 [facility] Comment on above: Order Comment: Order added by Discern Expert. Result Comment: Tire Bladder Maker juan pablo kidney disease could be indicated at eGFR's of less than 60 mL/min/1.73m2. Kidney failure is indicated at less than 15 mL/min/1.73m2. Performed By: #### 2 955971, 9992199, 6553575, 35645549, 0477917, 5595186 ####[facility] [address] [place] [address] Reminderson 11-16-2022 Reminders - From: Olena Resendez CNP To: Shayy Dubon; Sent: 11/09/2022 13:40:58 EDT Show up: 11/09/2022 13:41:00 EDT Subject: Ambulatory Reminder Reminder/Recall Colonoscopy [place] [address] Hawkins. 10/17/[address] hawkins From: Shayy Dubon To: [facility] - Reminders/Recalls; Sent: 11/16/2022 14:37:40 EDT ! Show up: 09/15/2032 14:37:00 EDT Due Date/Time: 10/15/2032 14:37:00 EDT [facility] Insurance Correspondenceon 0 11-14-2022 Insurance Correspondence [id number]#1.00CD:12 7 [facility] Consent for Procedure/Surger yon 11-10-2022 Consent for Procedure/Surgery [id number]#1.00CD:1 27 [facility] Ambulatory Visit Summaryon 0 11-09-2022 Ambulatory [...] such a (more content not included)... Normal [facility] Gastroenterology Office/Clin ic Noteon 11-09-2022 Gastroenterology Office/Clinic [...] Was previously evaluated [place] [facility] [place] and note indicated patient with [...] 09/26/2022 reveal (more content not included)... Normal [facility] Comment on above: Result Comment: Elec tronically Signed By: Mal SIMPSON, Olena Hernandez\.paulette\Date and Time Signed: 11/09/22 14:06 EDT Patient [...] ask your health care provider. ? Take dzba-jqy-ozvzezb and prescription medicines only as told by your health care provider. ? Do not use odcn-wus-xbsnjhe medicines in place of prescription medicines unless [...] ask your health care provider. ? Take cnbn-nzx-iypanln and prescription medicines only as told by your health care provider. Do not use wjac-rot-bjmnwkh medicines in place of prescription medicines unless your health care provider approves. ? Limit your alcohol and caffeine intake. ? Keep all follow-up visits. This is important. This information is not intended to replace advice given to you by your health care provider. Make sure you discuss any questions you have with your health care provider. Document Revised: 11/12/2021 Document Reviewed: 11/12/2021 [employer] Patient Education ? 2022 [employer] [facility] Postoperative Documentson Postoperative Documents [id number]:1 27 [facility] IntraOperative Documentson 0 10-07-2022 IntraOperative Documents [id number]#1.00CD:1 27 [facility] XR thoracic spine 2Von 10-06 XR thoracic spine 2V [facility] Main [address] [address] XRay Report Signed Patient: Berenice Santos MR#: [id number] : 1995 Acct:[id number] Age/Sex: 27 / F ADM Date: 10/06/22 Loc: SOXD [facility]: [facility]: William Payne MD Copies to: [...] Lopez Jr., D.O.10/06/2022 4:48 PM Dictation Location: [place] [address] Transcribed By: [facility] 10/06/22 1648 Dictated By: Jairo Lopez Jr DO 10/06/22 1648 Signed By: 10/06/22 1648 Normal [facility] XR cerv spine AP/LAT/FLX/EXT on 10-05-2022 XR cerv spine AP/LAT/FLX/EXT [facility] Main [address] [address] XRay Report Signed Patient: Berenice Santos MR#: [id number] : 1995 Acct:[id number] Age/Sex: 27 / F ADM Date: 10/05/22 Loc: XD250 Room: Type: [facility] Attending Dr: William Payne MD Copies to: [...] Troy Canales M.D.10/05/2022 1:02 PM Dictation Location: [place] [address] Transcribed By: [facility] 10/05/22 1302 Dictated By: Troy Canales II, MD 10/05/22 1259 Signed By: 10/05/22 1302 Normal [facility] XR shoulder RT min 2V*on XR shoulder RT min 2V* [facility] Main [place] [address] [place] [address] XRay Report Signed Patient: Berenice Santos MR#: [id number] : 1995 Acct:[id number] Age/Sex: 27 / F ADM Date: 10/05/22 Loc: XD250 Room: Type: [facility] Attending Dr: William Payne MD Copies to: [...] Troy Canales M.D.10/05/2022 1:04 PM Dictation Location: [facility]- Transcribed By: [facility] 10/05/22 1304 Dictated By: Troy Canales II, MD 10/05/22 1302 Signed By: 10/05/22 1304 [facility] [place] 09-28-2022 Consent [id number]:1 27 [facility] Discharge Instructionson Discharge Instructions [id number]#1.00CD:1 27 [facility] Main OR Intraoperative Recor don 09-27-2022 Main OR Intraoperative Record IntraOp Document Type FT Summary Primary Physician: Roma HAWKINS MD Finalized Date/Time: 09/27/22 14:50:44 Pt. Name: DANIELLEBERENICE TRUONGO.B./Sex: 1995 Female Med Rec #: [id number] Physician: Roma HAWKINS MD Financial #: [id number] Pt. Type: O Room/Bed: Endo OP 05/18 [...] Blount RN, Ruth Gaines Role Performed Anesthesiologist Liquid Loader - Primary Scrub - Primary Under Seal Operator Time In 09/26/22 13:25:00 09/26/22 13:25:00 [...] and tissue Entry 1 Skin Integrity Intact, Royal, Warm, and Skin Abnormality No Dry Outcomes Met? Yes Last Modified By: Darlyn Blount RN 09/26/22 10:08:37 Post-Care Text: The patient is free from signs and symptoms of injury caused by extraneous objects Patient Positioning FT Pre-Care Text: Identifies physical alterations that require additional precautions for procedure-specific positioning, ara (more content not included)... Normal [facility] Main OR PACU I Recordon 09-15 Main OR PACU I Record PACU Phase I Document Type FT Summary Primary Physician: Roma HAWKINS MD Finalized Date/Time: 09/27/22 09:59:55 Pt. Name: BERENICE SANTOS/Sex: 1995 Female Med Rec #: [id number] Physician: Roma HAWKINS MD Financial #: [id number] Pt. Type: O Room/Bed: Endo OP 05/18 [...] Signed By: Roseline Mcbride RN 09/27/22 09:59 Normal [facility] Pre-Certification Formon Pre-Certification Form [id number]#1.00CD:12 7 Normal [facility] Progress Note-Physicianon Progress Note-Physician Patient: BERENICE SANTOS [...] Surgery Unit, and To home ). Normal [facility] Comment on above: Result Comment: Elec tronically Signed By: Sam Noel Jr., DO.paulette\Date and Time Signed: 09/27/22 06:50 EDT Consent for Treatmenton 09-15 Consent for Treatment [id number]:12 7 Normal [facility] Endoscopic Procedure Report - Otheron 09-26-2022 Endoscopic [...] Return to activities:: After 24 hours. Normal [facility] Comment on above: Result Comment: Elec tronically [...] pylori 3. Normal duodenum Images Procedure images: Rec1_hd_video__T 12_32_34_212.jpg Rec1_hd_video__T 12__06_886.jpg Rec1_hd_video_2022__12T _32_24_247.jpg . Post-Procedure Complications: none. Estimated blood loss: [...] daily 4. Avoid NSAIDs and alcohol Normal [facility] Comment on above: Result Comment: Elec tronically Signed By: Roma HAWKINS MD\.br\Date and Time Signed: 09/26/22 13:30 EDT Other Comment: Phyllis jo Attachment - attachment storage system not supported [id number] Can be viewed in source systemMissing Attachment - attachment storage system not supported [id number] Can be viewed in source systemMissing Attachment - attachment storage system not supported [id number] Can be viewed in source system Main OR Preoperative Recordo n 09-26-2022 Main OR Preoperative Record Holding Area Document Type FT Summary Primary Physician: Roma HAWKINS MD Finalized Date/Time: 09/26/22 12:59:29 Pt. Name: BERENICE SANTOS/Sex: 1995 Female Med Rec #: [id number] Physician: Roma HAWKINS MD Financial #: [id number] Pt. Type: O Room/Bed: Endo OP 05/18 Admit/Disch: 09/26/22 12:47:01 - Institution: Case [facility] Holding FT Pre-Care Text: Verifies consent for planned procedure, identifies individual values and wishes concerning care, includes family members in perioperative teaching Secures patient's records' belongings, and valuables, maintains patient's dignity and privacy, and maintains patient confidentiality Entry 1 In Holding 09/26/22 12:57:00 Outcomes Met? Yes Last Modified By: Juliet COLEMAN, Syed Madsen 09/26/22 12:57:36 Post-Care Text: The patient participates [...] By: Syed Chung RN 09/26/22 12:59 Normal [facility] Monitor Recordon 09-26-2022 Monitor Record [id number]:1 27 Normal [facility] Monitor Record [id number]#1.00CD:1 27 [facility] Progress Note-Physicianon Progress Note-Physician Patient: BERENICE [...] follow instructions per packaging and physician's handout, [facility], 157, cm, 07/27/22 9:34:00 EDT, Height/Length Dosing, 76.7, kg, 07/27/22 9:34:00 EDT, Weight Dosing Zofran ODT 4 mg Tab-Dis: 4 mg = 1 tab(s), Oral, q8hr, PRN Nausea/Vomiting, # 12 tab(s), Refills(s) 0, Pharmacy: [facility], 157, cm, 03/23/22 13:50:00 EST, Height/Length [...] Problems Blood in stool / SNOMED CT 7825949302 / Confirmed BMI 31.0-31.9,adult / SNOMED CT 888822246 / Confirmed Cholelithiasis / SNOMED CT 674327164 / Confirmed Chronic midline low back pain with sciatica / SNOMED CT 405662916 / Confirmed Epigastric pain / SNOMED CT 205762711 / Confirmed Family history of colonic polyps / SNOMED CT 2190603817 / Confirmed Nausea and vomiting / SNOMED CT 11332702 / Confirmed Rectal bleeding / SNOMED CT 848457614 / Confirmed Smoker / SNOMED CT 173481066 / Confirmed Added secondary to documentation in Social History. Trochanteric bursitis of left hip / SNOMED CT 14186510 / Confirmed Resolved: / SNOMED CT 133372096 Resolved: DDD (degenerative disc disease), cervical / SNOMED CT 7B657U73-1MJ5-8877-6I41-0 [id number] Canceled: Back pain / SNOMED CT 532848876 Canceled: Smoker / IMO 861589 Added secondary to documentation in Social History. Histories Past Medical History: Active Blood in stool (2408734099) Resolved (152586640): Onset on 04/17/2012 at 16 years. Resolved on 12/27/2012 at 17 years. DDD (degenerative disc disease), cervical ([id number]- 47066HQ2O906): Resolved. Procedure history: None (511404240). 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 Respiratory: Lungs are clear to auscultation, Respirations are non-labored. Cardiovascular: Regular rhythm. Plan [place] [employer]hes[employer] (ASA) physical status classification: Class II. Anesthetic Preoperative Plan: Anesthesia General, and -TIVA. 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 female here [...] should p (more content not included)... Normal [facility] Comment on above: Result Comment: Elec tronically [...] ovarian syndrome (PCOS). ? Binge-eating disorder. ? [place] syndrome. ? Taking certain medicines, such as [...] have to (more content not included)... Normal [facility] Coding Summary.on 08-04-2022 Coding Summary. CD:185639Dmjp74ZFk2r Ww+PG hlYWQ+UF4DVSPhJ28kvCPgbJ1 rN7RSGNzCApinOSVTBMsIJmNq qdZgEH5heUSzKJAd IC8+BO3eGJStHceemPKgz6R5b ER0O72rqh9uPDrlcSR6TDMjDn Czlafnu0pkuWf5EEusElovJnX t LYNfqR44DGF7uS51Bk26aIOxo LZzx5kwdAe5RnMbBLYmXMA1pO xySMllt4XiJFTwO98puACwf9M 6 XIDobOqaaTRyTlWaqSZ8eR8eC Pnrzimjn3gjybyhWqf3mt62xB Ncg9P5oJT4W9JywzA6FJOnmIK g WhdymDCYbK6iirdgf2nqmjzfS jRmCRFlEVk6FJc2PXFgrUltXo PwRC51JMM2RUVwucSeL2XvXWR s oMlwLlQ8i0U3Ye6DK4EXJijiU 1VNTUFSWTwvdGQ+IH02vp08C4 FiQllzUpo3FDQuBQJ8iUA9dV7 n YBFdKVukq7Z8uEN7T8GvtzRhk n3br9cbQAVhCBpcJ08nhAUzc8 H9DRHsrUR7WGKkpNjaSaRfvQ6 3 Oyc+ESKmmAldr3ScIkerm1ned 2ivdOo7HwefGXMaeqAyxOpnJL Q0e3RjKi2fHIHtfKK9kNQ6yV3 i GtLxFnQ0CHqoN749DzTcxXBqK kltZ07sO9PbdQA+JZElSxt3FE RsaRwtIF8qB2YxDSZilpkajFR m tBhdQW3vCBUucxvaFZKawT9hR HRlT6z1OeEfMyR0ZXedI1VxCU JphgntOq25kX5sKqJvNdQ8NNu u A2VpndI0OHWadUDxLPslQIE2X 71vf9A3LUHmATJwIRY3oOH1aI 1hbGlnbjogbGVmdDsgdmVydGl j MIkqIXbiE102ZDAfmRazBxAeN GluZyBEYXRlOiAgMDQvMjAvMj AyMzwvdGQ+FIAaBTK0nRiwISK n cCZhIRccLy0zqVaiyOxbXI9dX JDfatqfNNClbH9eYDLrrZNdeO xpDB0yMZPddcqbf387AkVeNDZ 0 LDCugAOjJ2ThtD9qKeZhRTTgE ETyM3DuiIJcUWxzO176KNbeDp K8NJHhnoWiW1AhOLMaxIgbOhN 0 u3L6Zq2Sd6KfelxxH9VtxWDoY pIjOqonFCg3T2BrZmqlhWV+PC 60OWIoPD23OYi3PRX2qQjsJLu i PLBpW0QzjC5pIhKxBUXjZDWaE yc+PHRhYmxlIHdpZHRoPScxMD RgAsVjkOjkWR2mIe8mPDHeFGK v xPdxqYKdXmNfw3clJQQnJPcpF V3ooNtgM7FasZG7HHPxb2a1Sb 02D35kJ8ModKQ+HUFkbMX9gPM 0 eJ5gNkDbRiP5LTqdY156OcNlw GZlFsvwq0vis9tevRo8KmK9MN UqqeQiiAqfXNN5c4LqOb55D27 s IHdpZHRoPSIxNSUiIHZhbGlnb y0kpE1zDl8+NTEbtBW6aAD2zL 3vFtXwLwA7FCfvJ378SsYlpBT v Mhyas4yvf4iawOg5YbPvJCHac nBtuGzuAMC5b0LaOk69I1NtlW qhm6OhHya3rc85nZPkg8G5iZD 9 O9YuONFnbnhycZCtsXefHG8aB UJdjqxyNEEavQ5mXSOyL4l3Ll QsIrE1YClmV2ZjdcF6QHWcoUH g FVTjwQRFfT3gllamf5zpgivhK rFxQIHaZKm9BQn5SXCuvRebLj RhXNI5ZoP8GIN9vKNmdZ0pwXz n wdhuwO1sOpb+GEA3vTKtzXSQH F4sDborzTT+PLIdTRJ2yXppSD zvYEQlcY5wBPTeO7h9UoIuHvR 1 OApoC7OjqhN2OWOchBGhHWWya BBGyD2jamrps9ybbnaxPqHyIC UwDSs6XYe4CWOcwTeqYaJtALI 0 SaX4ILP1qYGxbC4anDqqjzgav G9wOyc+CxgsxTlyEYH8KWd7P8 PoLkc2FXJwmJecBH6zqHIaJNl u Eg4bmWbrgBqgVQ3xYJCpdvdix 605BnZqr0tfXWOpfCOqXSjwMS M0Z48ia3I1BRIuEHUvKAJ1cGO 4 zW0geSwbbcvzwHNaoJajewYiq EsbVWcuCVbmZ104XGWepZzlWn JkTPw4N1XcWcl7TIXljClpYL3 n lCDhBMjyAx4ruBgisYyqUE3pZ MJohdfsi244UwIxx9xnARRooH QpLSwrVGL4T84ht7R5ONUkUGR w AHL8vRG8xQ6kpBqvbohndGXma OtgwiVotGlcGFyhMRuyV645RZ TzaUpiDwRldZf0Z2TfZxr5WEV z kGavXT7wvCZwYDprCe7alMcdq EjoYI3qRXYaqjztr327VxEhs6 hdMEZcfTPsWUikNVR6B95ba7W 6 FVUjZPPiCTP7qLY2iK7scVtgw jogbGVmdDsgdmVydGljYWwtYW yoZ188UOWsoWgfPeFmrUlumiW g MAqpVIv7X2MtTvxioJU+PC90Y NFsHW10nDZwjZRnm5kpkAc1Tl ZsGGCvLYB6jFfaJOjzl1FpSNA t H01kzRQrm2C7OYHysZzkoGNiH rDnjLH3uB0zUPokjyxvs4ilwx vnFimtl7rpcw75hF66L82wVOe p TSCqMAAtOSYtPTZnwGrrpk9cy G9wIi8+ZZQcdQJ3xTA5bD7uEY PvQtA3XEukX365OgEhwRUjUuz j k4axy3ymnFk6PmV3LCKcgsYxm DbbYEJ1a4OeYo28G47lEGxaUC KxCXRaWXCxPVIjfQpukl3hdX5 w Ii8+BSIkiRQ6tCT0nF9pCcUuY kI7SCmrV461ZtKgaAWkBjsgK0 2cY6HlfTC+PDDxOmu0UATdwCw s EG8gjFKeCWcdIp3aJQM2VoZoI lUkUAghQ1HuYETtlqkewqturA G8SZGfUFClpN84Kk0vcMtvQUA w uQSZoF4gwznfw5pdoopcWnRaD KXrRAl8REh4ZJPcjXcsSxSyEU F1HgG2FRG9mRHocI1czZbcynl g xF1mD7GrGQYyjwajGg06xL6uX rViIaV3LSbdNzv+CIANY2FKFK 1bKIjMI8wWSUYQCL57WX15mUC g g0M2mJM7H6GyDMUaxatstwdrb TK3PPMtJWGvoJ74iRLdQGetOx 4ad0I8l758ZCZtYCVhpM77Vp8 u cSdnZGUsjPOEfR4qlhjyy8ybj eqiLgPcKNMeHWe2WKv3HBSvgS llVeAcSHD2NmR0RFV7bWDadD0 h sFsjbgwkuV3jIyc+MDIvMDgvM Lv9EXuewNW+CCBnYRN8dVhpMX gyFCOuoU1fCLIhB9a3DaRwYxK 1 NRscO8YiIJMhwdfbVl93iQ4hP hCpOoC7LLxuO7NhhpG6CBTeiJ UbVOtlOFM2G26qd0A2PZRyZYO w TVV8bCO8oM6qfUrcovowxTMmz SxcpkMcnSpfWXjzXOalD955JI CzaMtmDaH7HFubBNNoRS04UO9 8 wDZzn1E8vPB3Y8MpXGKtadhuu qodnBA9HAXcLYBtnI25cCOiQJ xqAz5ag1I3g644DCYlDXMxyC1 7 Jv5nfWouMVBwuHTXhX5kfljcz 3sqpuauFjScQNIeFGk2GZj9JT UmbTasJvNjUGU8PcE3BHZ7dGD h gG9suKmebujaxS4qNml+RmVtY ZnbVM60FD04fHDfd1W4lKT1A4 GxPNKydsabwkdvyOZ3NZDrBFM w tK11yMTpGOhjFr6ot8N5d139B PHzVJJwdT65Jr4ldJwdXRYzaL IBcD1cstaln2ohpztkYiJyVPC w ZMj4FWk5XXSweTojLdPrCWT9O oQ6FNW3pRJpqQ5hvXqzaxxdhU 9wOyc+V0O7iBW5cAUpwWsluTW + CY47bj76P8PpTadwYyu7JDOtD WA0jHC6dV2vYQMyQKwnk0K3jA T3C1IxbsTivf0xi4clZHNhREr g I09ygSIin8I3AKAtlYN3WASrd WteEzXkyF03Dtv+PGNvbGdyb3 NaNbnef0lgx7jpyIy9GsYrHQY g uuZrqBclOST2h3VwRl61T43pJ HdpZHRoPSIzMCUiIHZhbGlnbj 5qaH5bFr4+WEEchRN1qQS4hU7 i LdVuSbE7QBcnU905ZwPnaGEeB fhbo1mgl6dlsBh0ZiGcFCNjzq LhdCquJVO0r7QaEn11S2ZvzJe y g1UyGcp4bj61iRKtn5C9cJV5S 3IzBQHsqpjfvKKtxYwbJQ3vVN BtwvonTRGhkJ4iNZSgV9p2VbP w IiE9ZHtpM1ZfcoN2DJRjgKSgG BQzeTHYfJ8ybwtvn3qhhjrxCg FyRUWoLLl0BGx2AKGgnEsbUyS s KAZ7XuE3YEL8iPRnoD5twScqw kbehK7gYbf+GMe7g3fdrLRlBR 4ynQF5LP57ZZ63yYWty3F1dDV 9 U5FmJMWnagmlbccjhGT5WWMvI ZGduH77Ye6nyEmyUe3vCPYoBW N5UBDjqTMaS5UldM5eLwAaQGB w XLTwL3JdiPRzIJnaQ834MYosI fZ7ROUcjuYzR2QsSFXexOfiRy F4q6C3Kk4AXZ55IY21DK93cDC g f6O8uBQ2C6BeTXTfbrjiqxbkr SX8MSSkWERugH53Xt9hlWiuKj 4uFGCtVJJ5LCHebWVkY1LdpF0 y HlYgAFYySILzK5LkhBTjTZezV 390YRndCdI2EMOsatTeA7PqLB VxsZnsWaP7v2K3Hv0VCd62NF0 0 HX54rXBne9K4hYP7U5DtQNHzw bmyovkatVT4FWSbJIHulG80Tc 5lvRpbQr9rZZNqUGG9IHDhfIG z W7JinO9aTnNyVPGjXLDiU6Gvg WIuAGesL187GAgcToY1JZKghr WxX9KgJXZvgQezPlT3c1W8Ym8 Q NFnsukz3T5OwZdndeKV+PC90Y AXpGF26cLTreXGte3onjDg6Gp YiSHNdJQB0rNneJDvjc1FgYGO t K41csNRm (more content not included)... Normal [facility] Coding Summary.on 08-03-2022 Coding Summary. CD:[id number] Ww+PG hlYWQ+MJ4SKXBuI49paWEshW0 yR8DFJEwTFomfKXGGOYrOGqTp opYyFF8qjQBiNYBo IC8+TJ7zZAMnUmwmzWKri3M5i CD6Q06vwv8vPWjiaOJ0SIOlZk Axaoqea9hviRy4MDoxAtwqJeP t GTEjeG09DYF7bK40Ye89iVZyu BQjb0txlVu8YgQfQLDbKWM0oK kvAJlsz2YpPBSqF70tnLVcf3U 6 ENWtgHtnqPTqLyBymMY4xK9gW Lbovdyet2nqrgxdUeg5fh32hY Nxg7P5yPW0K8ThgwB4QPFkwXW g YkmdjTZUfS6pjrnug7mhrnnzK aRrXWHaFVm2HLs6ZRQzqKdgTk LnMJ57JGH7CCQhhuNxC1IzQVT s oQmnIwP2z1H0Pf7RY3TBFcbiE 1VNTUFSWTwvdGQ+JR79mu57B3 MnJxaoPex0NMDwFQN6wSE3sN5 n PMYjJLgnm2H7fEM2L5NzkdAhw v9pw1mxKHQnYIayE70kqFHtv0 T4MQPcgUW2CFMibPedGzWpeH2 3 Oyc+SKFkpYodm0ZqOykfh0ptt 0xecBy3PxikJFYgtzQcdDkoNF P3i2OhPt5qAGNhwQE0rCB9qA7 i ToUlJvI6CBjxK396RgNlfJOeD kqsF68aH9PodTX+AFPoZap4NK YbhYosLY9cD5XtFCPjgklzvJU m fFofCZ4dQCHyrcnrQTOemD4aT TMpS6m8VsTyXtA7ROkmI3PhJO FetubmCa96rK6cYlKmMpZ4CXd u Y2YysjK6UHTxfCZtIYclUVR7J 22ra7E0IVVkIIOrQZA2zQI2nH 1hbGlnbjogbGVmdDsgdmVydGl j CXqwPXkpQ127HAStfHpbAqOfW GluZyBEYXRlOiAgMDQvMTkvMj AyMzwvdGQ+VLRaNAO1bWobFAK n vPTxSXpdRi3luNrihDclZC1dH AMhotdpPKDnyU2vCKUomWQqiU cxEE4aXWUraquqm064JoZcXFP 0 RWRewSCwS0EuyZ6rUcMkPPPmO RZlS6EbsJKgEVzuQ033GSatPi X9HHXwjcDoX9GeNVMghUleMmL 0 q4F3Kk1Qi2LnaoayQ8PznEIjV hHuDegnEDh1Q3MuZgfmoKT+PC 42AXWxNA74PAx1ULW4eEjjPEg i CTEdH9KdrD2cXfHdGTWaDWTtL yc+PHRhYmxlIHdpZHRoPScxMD RdXpFryRkeMC8mQr1fBZNdTDN v lBgyiUIrPfNkl0lwYUNxENcoZ L9orKapP6PogEE1WEWli6p8Er 03J93yN4NkxZA+BDBwjTJ9kYJ 0 nY6qZwNwWxI6DWaeV970PjPpj GNyCbusf2dpf2qvcRe0PcU1KR AbfnPgrPjaMAO5h5BgGj82K58 s IHdpZHRoPSIxNSUiIHZhbGlnb h5cnL3gZg9+ORWtaTF3bMT6cC 9aNqOcQjA0WMlaZ653OzGfeMQ v Vbpvt0cxj3jdlQg4TkKxIQQwh jLjyGdzKOX9i4ScEp83I5EglA iwl3SwFbp0lr71fWAue9U8uBE 9 K5RqABXtlitypPZqtSeeMC6mR QHvpkkxXAJkoO0qEJIaC3c4Zk KuAuU1KXilO7XmisJ5DZZiqFR g OJGjlWDWcY5hzsglm5jrqccoP bCpOQZqKNf1IDd0KKVkoVnlLw HnRHC6OiG4ZJK3jZIowX9sxNv n nvetfR3uHdz+SAQ7lCSdeYKUL I1lCcvlwWX+OZZdJKJ2aQqqGE nyXFHwkQ6bPZSzI9b6RpHeNuC 1 GZpnM6WnmiD7FRJvpEMeNXQqj IJBlW9cmjkkr4pdrljlHmDfTN JzBAv0LSp9SUTkhGdrZtOmVDN 0 CgL4NKA3pJIchM3weUbxeqhxn G9wOyc+XagriBebDXH9DLe1U7 HdMtw1LMKjoWlcAI4rdKUvYGv u It0vxKrlhOlvXH3qZVXrpjnga 440GlQuj9yyDLJjhLWsTMovLR J2L21yp4L6ZFHvVZXbJKF7lMQ 4 dL3idIuwurwcjNHygZyuuwQxg VkgXFosDOdgI512OSTqpXqfSt IkHWe2L9YyKtk1SDRrzIjrWH0 n rVPkYDwfUt2bySzdfDljQK5eT DQzeyobf588AuNmm6yeUALfsO WdIYiiJSM3A78ql6P2LMMwNON w ATT2rWT9rX7ybHaicdlsjNEws ZxuocObeXcmXAhvUEwlU141WH FnzFbdQtDdhJd1X8WdEjl4JDZ z gGdlZP9wfURjBUxbQg5dgDxia ErdTB2uTWBudtnwy755ApEtj9 mgMLHinKOgFLwfDDU7H47yg5P 6 NVJoFVWaUIG1sYQ6wP1zfPsgp jogbGVmdDsgdmVydGljYWwtYW qaA064QEEraPxmCpSqwXlvbkG g CMssZLc4P1UwFdmivCX+PC90Y EKnVR58pCOstMEcn4stgXz0Bo HjSUJwWQM2vFjcEQowb5TxIOB t A34wxZBvh4O4JMEgvYdyqOYwD fTfaVA5qE9hWXyfqmodp5tvrb feZkqwp3nnxp97lL43U22uOAx p ZFNmAKUmSXQiDMJcmZqwwt6id G9wIi8+CROcbWI0oJB3lY7zVL KsHlV5XDmkH197AcHcjYOvOkh j r3yxb7yfcZw6UfP4PSUgpbKwm MndLNS5d3SvTh95L20vHQyoCG InHTCzDRGcSJJzlXsobw2xtX1 w Ii8+BZVsmSP3uNX4dB9kDnLuI sK5WDfeD676MzClwNVlLmmgY6 0yP7PrjJM+GDAvIia0UWDfkGg s OT3xzQQrXPozKx9aDDY4NiHoZ nDbEPihR8UfIZSrkajsghkufK M4FKBrSAXvgD81Hw6lwFalIDZ w aHWKiT7xthptk9lgbhrwNgKlD YBxZZx4GMs5VBGdnSokRvDuUE T1IcV8YPK5cGKolL0epLbksle g oC3dS2HyWGEqtiweNj57jK6sD yPnEjW7DMqfPcv+UMJBK8IPQF 0zTEeQZ6hKQNYZSZ41BL77oYE g j3J2pUQ6R0ZsTRVjwaepzshvg WZ1CHFmMLKtiK78rLGrVQeyQg 7gb2G8k400FYXyQMKvnI42Db0 u pEezFBTlkBROeK7ocfunj2gpq dkuWxVfMVZrBZt7TDs6MHFarQ zkAaGyYTT2EoB0IUG4vCXivR5 h pBylsoqqxG2gOln+MDIvMDgvM Hc1DBcyqGI+ORAbSUX9fHknWH yxQJNogS6fZZGoD5q3IsUeDwE 1 WGgiW6WgEJVeifouDk48jS4vE tAuCyN3KEzpN0GimzX1RVZmxV EzBPtvZYC8L21ct2K7YKGbMRP w RQY0rXM0jR0blQoboigbuQSvw MqcrqPplCteILivQCruE575VQ PhkBejDjQ3THqmJVZdLE29XI6 8 qMOdd9C9gJP2N6UiLPTovyfwf rqivUM9UADzSKRysL67tTIbGW kbHt2oy9D1t200YOVaLEKzdL5 7 Js0nqZspXFPjrUIYaC3nuswzh 4chncpyHqCiXAEhZYb4ZPy4BH BxfAazGhVxUIM9NjM1FTQ7dBA h yA3ruAmklevorX0fMnh+RmVtY AxtMH45DE48vRDnm6Q0sQL4W5 RzXPQjegkosmccxOP9HKWtTCF w iC61tXXnRWgyNu4oy1J2k106U VNiFEIvaR13Uo3dyKnkALZnnF YOtD9wywqzo7nidepnZjVbNIC w AWt9NPs6WOJroMmfRlTdBEB3Y pZ3UEE6pGQymY2yzWhjciyhgX 9wOyc+J0Y0gFS8pFRpiJxhpLC + YN00iw30D3NiFzpeVzs7MAYfR FO0wQX0lW8pSMVzQXxuz4N0dU X3G6DcopUhec0ru0bsUZFlVPp g I63aaADzr5M8UKMnqTH7OFAru HbaClTuaL55Fav+PGNvbGdyb3 CgLomfv7auy0bqnDw9FtBmSXZ g zsMwoOahBOF3l9UzWo30X45hF HdpZHRoPSIzMCUiIHZhbGlnbj 1fyX4yPf4+OGFqwIX8dCC9iE8 i FrShUhI3HAvrH081HbNdaDOzI ytpc3dlv7worRm9YbRrJMTyez JbkHjjOYL2v2UdKy19S8DcePe y f3IkBjt6fj51eVMuu4W2hRZ6F 7EpKYTclfsvrIJdoQigNN1kOW PdeoenGQBfeP0cMUPxQ8b2GlL w OcR1DHwmO2NewjM4KGNjdBRpS MSeiOSEqO0witlji3yvonxvPp DeDIZwGWe9HAp6ISVtnNnhMqT s BWL4VrT9VLC5uRCgnG7fzJjpi jcrxA9oOht+BBa1v8vqbBObXS 9xiTA8PZ59LO75dZQjg0M4kIX 9 S4OgJJPkopaswkaexXI2EZRkH IRahU34Bp6gxNqwMf7xGKMxAD G1PQNhpCXdT9UcjF6dHoXuKHQ w WJCiG4QwqGQfOVcwD241HGbqV oV9VVBhkkYfH2FvJBTdpEjgSz H2j4D4Ga5FII18QX80UC88vHO g p3B8eFT7Y8OoHZKngscgrecme YO6TTSaSOHsvJ01Kp2deGevPu 8bXYMfQTQ1XFKbwYEnT5QktR8 y XlKfXEYtFADlN5BtkOFcAJdvI 850MSagQkN2DBWnogQrC1ImNS YjqNgsVbL0g9L4Kk1NBc41DG2 0 LS50bMBen2W2vKD9K9HhNDOvw xcnggzmiAH7MCPiYAHpcZ65Ap 7miXecHl5pVXScSEY0DMZqwCG z B4JytB8uGgGoBMAsDQCxY4Ljm NFoYTexJ899EZojMuF5ANAmzc NmZ8NkTCJzsLswShJ8s1H2Pp5 Q FByswie0L7YnDyqnpBK+PC90Y XAyUM42sSCuaBKzh7kqwBj2Xo OuAPAaOAT0yQmcNXghu4VeUOZ t L63gkTMf (more content not included)... Normal [facility] Provider Letter FTon 08-02 [place] [facility] [place], [place] BERENICE SANTOS [id number] [address] [place] [address] BERENICE SANTOS 1995 Dear Berenice , We have been trying to reach you with no success. It is important that you return our call regarding your ultrasound upon receiving this letter. Also, at the time of your call, please provide us with your current information. Thank you for your prompt attention to this matter. Sincerely, [facility] [phone] Normal [facility] MRI Spine Lumbar w/o Contras ton 08-01-2022 [...] by: WHITNEY Technologist: SHELBY Technical Comments None [facility] Consent for Treatmenton 07-16 Consent for Treatment [id number]#1.00CD:12 7 [facility] Consent for Treatment [id number]#1.00CD:12 7 Normal [facility] RAD - MRI Screening Formon 0 07-29-2022 RAD - MRI Screening Form [id number]#1.00CD:1 27 Normal [facility] US Gallbladderon 07-29-2022 US Gallbladder Exam Date/Time: [...] REPORT Dictated: 07/29/2022 1:14 pm Juan Ruth MD. Signed (Electronic Signature): 07/29/2022 1:14 pm Signed by: Juan Ruth MD Transcribed by: WHITNEY Technologist: CHLOÉ [facility] Ambulatory Visit Summaryon 0 07-27-2022 Ambulatory Visit [...] for future visit, Lab Collect, Epigastric pain [facility] Consent for Procedure/Surger yon 07-27-2022 Consent for Procedure/Surgery [id number]#1.00CD:12 7 Normal [facility] Gastroenterology Office/Clin ic Noteon 07-27-2022 Gastroenterology Office/Clinic [...] [place] the [place] [facility] [place] and note indicated patient with [...] follow instructions per packaging and physician's handout, [employer], 157, (more content not included)... Normal [facility] Comment on above: Result Comment: Elec tronically Signed By: Mal SIMPSON, Olena Hernandez\.br\Date and Time Signed: 07/27/22 09:55 EDT Patient [...] Follow these instructions at home: ? Take xstl-jpw-qnoevqt and prescription medicines only as told by [...] the cause of the bleeding. ? Take jfkd-pqp-mqunvfr and prescription medicines only as told by your health care provider. ? Keep all follow-up visits as told by your health care provider. This is important. ? Get help right away if your bleeding increases, your symptoms are getting worse, or you have new symptoms. (more content not included)... Normal [facility] Physician Orderon 07-25-2022 Physician Order [id number]#1.00CD:1 27 [facility] Pre-Certification Formon Pre-Certification Form [id number]#1.00CD:1 27 [facility] Coding Summary.on 07-08-2022 Coding Summary. CD:[id number] Ww+PG hlYWQ+CM8WPJZeU94waZZijA2 kF2HNGYoTLqywZCYDUTcZLcSq kgLgEC1laVPhDDRk IC8+MB6pSBVxClariIWve1H5v QI6I36xnc3hEZbyhZS4XHMhBi Casgbac5vvxRa6GTqpVighXnH t AGCzxX13NPN4sW32Av50xPTte WRsa4xahDx7FlNdJMSyYDK8bW qqZIckg0DeOCOqZ46wrEYro0W 6 ZWAafFqgqHVnSaWteRZ3eG7mZ Uvwadfjr4pypjcjNnj2fs17jP Kdc2J2oEW7E5EglgQ2FQBkmFO g SoslxWEWsY1tcpyhh0visasaS vOoTECoRYk1QDl3MKNwlFjdFy QtRH65ZEI5EQBetmAxS4IoSYQ s xUxsZbQ8m2F1Un3QN5WFUvyvO 1VNTUFSWTwvdGQ+BQ07ak92Z3 UrRmjtBzc2HSScBQT1xDA1bS2 n PKJiCEahb4S6fDZ6G0RzuaCql x4kx2xwOZEiJYkbG32wfKZja1 E8DUXxoZR0JCZkpRajDhYapP1 3 Oyc+QACsdDlga3OtYlrds3ogk 2ifmHb5MdyoFLNdslXncQrkYZ A8b8WkRq4aZHJcnQH3iBS3kG9 i RhZyOpP9EHppT416QkEzhOCtD fywK28sN8PyrRG+EWBhQud2FI VqbBtoUT2jJ5FvMVPzofearBX m fTbrRP9nTEHrrtafZBDzcA8fS OCgX1k3ZhFbPkA2CDvkA3UoUN LijrefMd53aG0fIjOlNlD2CHe u G7QwniX8ZITyzBGrUWuePUW4O 11bf2Q7UMWpDQCcDMN7pMB4rI 1hbGlnbjogbGVmdDsgdmVydGl j XFzrUKmsN322VTLbkNvnYzYpK GluZyBEYXRlOiAgMDMvMjQvMj AyMzwvdGQ+VOVmMEA2mBmgBAC n yHYsOCmxRm2ulWbsyWiiPA4zF OOdhsbjDRNkzR2cWTYduDEcvB rkNI2rJXTopslpa700LhXzGJV 0 MDVboHOoF9LbeP8pSdLzTBQgA ZMnQ4TupXFyINqpV528EPtzGi V8GIDqnhPpK3AhPHCczHtjHfG 0 b9R1Ob0Ew2ThqjdrJ4RlqNPuN pSpXmbjTEu0N1OpNdmtnMB+PC 15PWTjVP77DPd2JYE0uAvbNKo i RMPoZ6XeqL0xWdWgJCHpJBOkV yc+PHRhYmxlIHdpZHRoPScxMD ZbEwHguDqcQE7pDj9lHWDeSAO v vEpofROhFwGai0cnCQVkSZukM M8ryMboW4AcoIL8CPWrz3t5Ct 34K33tU1NyiRO+XNPjwRJ2tON 0 wS3nMsGyAeV9ZCwuO608VyXii TJtMgknf1zqs7jgrDv9RoX9EX ThlnOanUmtJYL3u7SkCl06T73 s IHdpZHRoPSIxNSUiIHZhbGlnb a8sjR4fPf5+ODXxfUR6qXK1mS 6nJcRlGsM8OYjgU134UzCghHE v Bmqbc1sbl2cheAa2XcSoCXWtq nEseEsuYMX6c1OiEl63A7ErtA mvr7VhOrd6ks50jHWhy2C4pOD 9 U8LrYXQeayipnYXneMnrOW8eD OKfekkeVQNtsM9gRLQzX9j2Xh IqPcW4MKyzP1WlusP5GCMbtAZ g CNTqsLTLxK8rlxjmy2lalzxpB wXsIFBgUPb0KPt6WTNktLhoHt OsUNH2CpG9ILQ2uPZlkF1axMn n hmmjxY8hPzm+TMC0uFKxhRMCF J7zUlogqJU+TYAdNZL0hGmjNT yiNDDhqH7zQUFjN7k6XgDiWzG 1 IIdxL4FabrE9GXZaiBXxWUUqc BSMfQ2jaxsql7guutsvJePmYL UoOVt1IZj9KGUaxRooCgWzYTH 0 AtO9DDA0vTVipN1hdMlzeplfz G9wOyc+OzrxcPvnEKB5NYp1N8 NpRpn4BGCjjMbtUY1rrWJrDHr u Gz3xdZfbeCrfML8eVFFwndymf 378ClUfs7ygWOZlmPYlOEziEE X9F87aa7T7SUOzTTGrWWI7nIP 4 lE9saPcdfupytZZrtQcdynQwh OylAAglQOkfH566TKHjaImxAw FiDCv0Z8ZeYip0MNAvyUiwUS3 n sNNpXCrcHp4voFmyiNopLM8gM NDnhrmjf108PbOlu0rhMEMhwJ HrALmoYNR5U96sd8X3DIPiZRQ w BNK4qUD4jF6hwHthcxgqcWRml ElzvmKlxXmcWUyuCZyqM220XL FpmAapVwRhhUk3S8BlTun8TZQ z nYjtTE8cbYAgVTndGi6rgGxii AaaDT8bUWOtzkaqx517ZlWdv7 szLDQqhVWwWScaOQB9W67ze3V 6 CGUyQIApEBK8tBP4wG9iiTrwt jogbGVmdDsgdmVydGljYWwtYW hnA343QMRjqTdgAkZalYfdbrY g DFhbOOf2R4WoHykbqUZ+PC90Y IOdQR86kEBtlSFup9mzmYa8Ud KhRRItXTT8mSckLDwqb8NyJXY t Y13yhOZva9U9DMKsqJknjWXwG rZomHY8oX9kKVkgqowjg0ldhs vlQtdbh5cysi72qI35Y54aFAk p HHWeQQFeSVSyAHIawSteqg4my G9wIi8+WQZpaHZ7hIR4mT6vBY DrEaU0BCmuH830UcPspJHxRql j l8qpz8iyjAn6UoP8MBOpyjWoc YtyHNJ2m7DsQz56H93gLBubKD PxBGCfNITzSGTsrXmhco1hoX4 w Ii8+LRNwbGJ9uJS4dN2oHtZdB yP0PNhhL895WdOdtFHjJckbR5 3fT5HyrCI+VVUcAnp8DYFzrHh s IO9iaMScYRefIu6pLJC2UaKxM kQlQEbkN0SzCQWonukezrtbzF S3XTStSEGzeF29Au6dbDsaLKC w dUUBuQ2soikgi1anldctRcFwM XXtZVc3WXp2IQCtsQegMoLaWM A3IoG7QAV7fXCnhE7xgOeslbi g yB1oZ0KgKEMqsxnxXc71gP0nJ dQbWkP8FMgiEjw+GKNVY9QYEH 9kIMaCM6jQOWDPXK75WG90jLS g q8W6mHC4X7NkERJbxfyawmiie RO5TPQoZCIjuR30bNDlZFxkIu 1gf1L5z655XYFuWVUivC52Dq6 u eFqmEJHfzHXVrB9npkavj2pre yziInMrZQZfCIj8FDl7KYOxtR cuRgPzROF7IhG7JUQ3gVMvcS1 h kZqpopjpqR4mUms+MDIvMDgvM Th3DHvisFQ+OBIdTAJ9lZkwEE thWQEgnU5hQDFmY0j8FxIqWzI 1 EIqlS0TdFWHzobtmEj26dK1pY jDvJtL5OOvrI1QpyhG4NVTxeE KfOPdnVHF8O35gs8M8ZHXwHDF w IXR1kBH6uC1gkWhruejpqXOeq BxoroDkwEkyNYxmMHbuX585VY LagUinJkJ3LDsdTXBkIB74OW1 8 iHNkl3I1iGF8I3MfWUKgcbbdm kbiqCN8UMOnCFDeiP87sXFyOB srJu6kr3Z5o931DOXcVZVrpY0 7 Bw8ffZalDYUyqGICzC9lkvksu 1xocaarJsBiUAEhKEy2KTg3OC RscMcuNkDcLGL8IwP8MCX2fBX h cO4rmDktrsgeaM6pKry+RmVtY HdxYK02IW20jSKze3I4nYM7X0 UiPMHbknnbsvrgqHD8PJLmDRY w aJ70aGVsYOfrTa2gj4G2a047E EJdNTPmcD11Qx5cwAdtAQIxiM HIaF6swzqft3wniagjObOvSHZ w PNz4PGx4OERtiThpChCvXNX0X rK5DLL4uWYgqR7rhJzatutefT 9wOyc+J5R8kHF1tZXjmYzwmLD + IH95je72K4McNyvvNcb1UPAoE LZ4vDS6kU5mMALtXUxgo9O1sI O0Z6OhgxPwcl4rq9nzUWEtJSm g G70loTAgw9E9JXWenYF6XBCfw GpkMgAioA21Tfo+PGNvbGdyb3 GjRctcq7byl0woeXl6GaBrJSA g eyExqOxoIWS1l0RzZb66B48wX HdpZHRoPSIzMCUiIHZhbGlnbj 2qrT1gTg8+WUXgrFE6pLY8xJ7 i TlFlEiX0ZTjhY073UdDzeBScG qorn8mes6bdhIh5GcKgVCIrpu XkvZdkSML5i9XpOs92S1MxkOp y q2DwGvh4hi86qEFrs6J8sLC4H 5IhIRQcvmxknGVdjJmjRZ9aSN HiyogsBSTwuZ2cLKLzT8w4UyU w RhN3LUxpO0LayaF5XEKzjHRtM ZIsrWRAdU3fxsdvb0sermrbWv YqWFClLTv6KQm7SXLloQivVyV s IPK8OyS2FPG9cNAffT1tdUlrp rmqtS7hJnr+XPy6f5afhFHqMG 9zfNG8LJ42GV56oGMto2M6dXS 9 S2AfMIRaqgenuuzpvIH9HARbW CEhaN31Nx1toBxjTp2jLUHbFW P0YUQlrYTlP7ZnvW8xGmDcOVU w HZZzP1NdwLYpUOsmM858IFnnR fW6TDYeheGqL8QfMCJgaLtrTp A7t6S5Ey5YFO67BR91QB13gUC g t1X3oIA2Z1YdCOIbhuvlgsqnq QL3UQTpXNBreU54Dr4nxMlmBy 5vYVUmRPH2THQceJIqJ8IlhI9 y DwUnFZFfXQSvS5IgnNCnEToqF 586FGmuWaB1SQZazdGyT8SgOC LhmMboQeS4c5B8Qi1KTl12IJ9 0 TF17qEBxi9G9dGC1E3QwXEPps omtjcummHZ3YJLtXHGepC42Po 2ofIseRo6pPYEuMXU0YMDebPY z P5GsnX6qGkSfKPYfHEQwW3Qzn MQeQRwtJ403PIdkBqH7QOVayq UmR8UfRWBkaEklGiR4l6S4By7 Q KIklxfq0C2ScArusjVA+PC90Y GDbSD12hVMznVVvx7gtrFa3Hq LlVCBcJDW7oEtgEDmbh5YtDJW t Z46gvJGi (more content not included)... [facility] Consent for Treatmenton 06-15 Consent for Treatment [id number]#1.00CD:12 7 [facility] Physician Orderon 07-02-2022 Physician Order [id number]#1.00CD:1 27 [facility] XR Spine Lumbosacral Minimum 4 Viewson [...] in mGy = na DAP = na [facility] Coding Summary.on 03-25-2022 Coding Summary. CD:[id number]:[id number] Gh0bW w+PGhlYWQ+BY9TACBiG92beDP qoM5WA3fAVS5TMIERIQKJCK3V RG5oiQH6DXmmJ8VztkZd RglhtURkRU72ILi3PWA8yGfsF YlbmW5jeYCeT4d0TaGoWA01nR 29BEueYUYjIbS4WzPhrpngdBU y A6xiErTfoNAmWgy+PHRhYmxlI HdpZHRoPScxMDAlJyBzdHlsZT 8rAd7kOVBkTHVzgVczaOBnSeQ j n0wkOVZdBLalWV7tiAzfU5Zob AV7NTTof8i5Vy06uGJ+PHRkIH V7nVixFZwwv472AeXgc7pjNAD 3 zZUiJNucSAA1H70bl3O6PATbR YUeOFR7qHI3fD6llExruwgbV7 WbiWZrKwY1GDR5gOIoaI0crQl n jjliwK1xGfg+B85JIV4LQGKQD A1OCsx0S9McSfjpfSG+PC90YW FwWD71aTKdqWDwh1rcxZu3EgV w SVNhJYQ3cKadLZcqt1QgVCDeC 48unJAim4H7UHIlhIlhmWEcVi TmyFQ0sY6wOUiiwbjux0vvebr n Ueyif9ogod58aU52C62aUNgbD DHhIGS3OHQaPTBguEeiyf3wkR 9wIi8+POgca7wcz0inbMs6IzA w MYNemxKbcSmoVHJ8f3EsZi28M 1RyvYgng9SaBwx5cl30wYThc3 B2vBW2NJgtYAPxsG1zDAfdCvR 6 QWFcIjEkbQ08lHPpSWxmEm9ra HyivQmpOK5yCWRbrskoAHFwkZ 1aCZMpfNWhvZywFS5mNYOhnwh m t761GrNfWZK1DPEptDAqA3Ypo X0uSkOmCJGuGZEbM9PrnQCzWZ jjT794HUpwLzW2ZOIoeiMxC4S s SYCnfCfzJyC5n7F2Tl0Us3Bag asrEUX6OLjzEHLbNnY9FvHzEn B5D3CvMaa5GMTuvFvsKN4kU9R h GMXlpzfsrsaweAU5VVPwWGXxs E07dJByIYhwIi6jy4J0o151GA CpSBIumD74Xu6aiHzaKZLlhDS U hL3axxbua7unwsxzEoHhALGtL As8VCh7UIXvfWblJzRjCUQ8Wy O3IRT9nXKzvN6qiNuiveghoX3 w Oyc+L48snF0aMYF0PQN9bdwsJ YVttnDzQJ68CC20I9LiPnfrqX FibGU+XWTpxfIuwNzsDP8dNuU j s5vif5BhBPooG4CpUJVgUMfiJ rx8ZZAaQFN6fQS8mL4iUTWeXB qcn1N1oWJ7E9HhnzGcff0tz1z s NCErFPanX19sdMGed0D8FNIol SK9HBRkrLkjHqSnxE49Xfr+PG RulMifc3YvIhoci6hjs2fodUl 9 ZhPxMIOsllRvsAedKBH3j2UdT n46K25yHKmaBQFkXSPoESMnLS EebNohbp6lpH6eDt3+PGNvbCB 3 jWM2lN3dCXAyImZ7ETgbR838M vNbbTCyQqlbh8ynt8xmyVt0Xr BxYQHmxbZukRgaWXP5b6SdFe9 8 T44iJUeyPMGmQJViVJKoDYNmz Akahk4ofL0bHc9+QP9be8llnz 04oP39sCZ+AIEjGTW1iJdbWYq w GLZifS1fAHqoMzF0TNCwUzMcu K92sGFoJOxxJf9myKalzZnmHE 4jPTQmoamcs839AmAhm3bfNZQ w xQSyJBdiCNL5X02ar2X6XJKfS CHeVWR7mPV4dW5agPfjaxdklP GnvZwiucOooFekEYrwOYmgQ85 6 IHRvcDsnPlBhdGllbnQgTmFtZ Po8Y4JiNzb6MRPyoPrjFO7coW YgBLcqHx7aoUjpyTqqQD2sKQB p amrhc220DpGkq8wuMGFffIUgB DykICD9U98ip7F6YCXcGUDmRP G3aKC9pW4jiHhneucpeDGucCi g suUvuYdnKWbaQQwdK261TIBgc WjfYeVyjfYiHTQidAX5XW53PS 04mBQzq4M9lQP7M8YhWJOwtys t jvvegVJ9DSEhMAFgjB00En2eh AyqYq5cYTJwHBC6JGOduSHnV4 VlpI3aAlShXUOxTUOoN1CqaIM t XYxnV056DTcbYxO6OJKtqgRgC 2AhQXVkmGsrStK3r2I7Ac6RC4 Q7OO21QF21nPFdf0B2zGD3E0Z h MLWyyczjebasrMI0LLEaJUDiy Y03Yz0dgFktGp4wIXUpLTD9RE QafKWxO8YjpL0nUwOiJITxLEQ w K8KwqSLuRIqdT754CBymIxB4Y ACwlcEcM6KzVPQggPmiFfW9e8 Z7Ip0KFNh5VS80YG15wGXyn4V 5 fFD6Y0LgBVFrqatjwuuhrGW0Z KRyCMWjaB84Fm6soZopNl6bMC WuEGR1DIEhiNOrU1QyeL7eIdJ j WFZtHTHiE8SjsLGiNDtgW545D VeuVjH6HUHobeTqC8SjVVXdaZ cfNrL1n5K5Kf7BUUJcKK78LGJ 5 jUI1YP45WI94T4HzEicwyYCbb +PHRhYmxlIHdpZHRoPScxMD EgIuKcdHvnWQ6dMe6cDGJiFJK v oRhopQQaDnHnn8snHXTnTKyeT O3qqTglM6SpdST9HUNik8j8Hj 38E92qT1MhwLQ+JEPtzTC4nWF 0 rC4lEiFfVpC3ETxqQ723UzNem QLmWltuc8rqs6nkcTd8LjL5DT KweaPpaKutMLP2g5AdQo17L92 s IHdpZHRoPSIxNSUiIHZhbGlnb f9rsY6mQe2+SUSkdTC4eXG5dC 9vUfXpPaS3WMpyS983RcNggZT v Xchfh2ytq4fsaGi1HcCsBKQlh cHdmTjcQWC3t2WiFz96G2PogA lti4TqIji5by17dYYzb7K5zIQ 9 I3VxIUZdjkfqfMMpsKzuBD0cX KFqjymsWRUewK0vEBHoZ0w1Ll CzJoT7HIccH2DbmnL1CTBerDQ g MZxfKRX0P70hj7L5SOWzDIJjE XA2rFV1tH1iuVmaepqpyXDkfB evsvCxgDziDMqhBIzoD153MNT v kCsaTAGegN5fEDJrwYDqhFfnB H7wBBRyfnolQhJTH5KMZBrAIH BMRVNMSUUgQTwvdGQ+PHRkIHN 0 lFsoQAlfTBQgsQ6sSGOfC6y2R iUpCxU8RHdpU6PhYTXbhvbgQi 83eO6fUuScGcJ5MRswZ0LkdqZ 6 FLDtlFKcSYuyLCK2S15fu7D5Y EDmWVGiWKT6kLR7yJ9jyCeylm ogbGVmdDsgdmVydGljYWwtYWx p T418OQLqsDmaDvWrWjN3IdO8V EY3P9FoPld2GXBsaBugBT1bvG ZbBIpuBo8gnBxkcRksHG0aPMU p emgmLTHkoY6lBROatMOzqQhrF Q8gLOEptrbcc670GcRoXWA0SQ MexFOaH1IekC3hJsNjMKWgMKN w Z3PovHTvKRwhE168YPeiSpK5J JDlaaZsW0GjSKSwaRbjXjT6c7 B2Ii8wZFTNAAKfgrkiqJA+PHR k JKQ0xFxiQBvdVIXcuM1pEUNzA 8k7CgLrLdL9OBncP2UiABWafw guTx93fJ2zYuElFkU0YPpfN0I v igF5DYRinZQrUCavEBC1R98xc 4R1OHPlAFPwLUG0hXO7jM6bmC lnbjogbGVmdDsgdmVydGljYWw t ZTekI857WHWedXnnKyXdbMHlZ TwvdGQ+LHWkNDG6rYzlJGaqSE ReiV2gXJWdY8b6VoXaTcZ5ICq u Y0UdCUMjnvlgBw18kJ3dZgInA aN7CGtmB0HczuK3DOYwqNWiDJ brYPT6S67ny5B5TCXxRLTrCWK 7 yYE4kF5mzDnqdipsiZCtiJzlz aUfeKqsBGjsMKfiL155TRCqyF mfDhPhUXIeLD4tdXcycWO+PC9 0 pn38P9TuVlbeFpu4DKObMFJ1p DL6uA3tCBKzDVlpv2O1pZH8N9 UrvqZmai6lz3hgMUFyOCucV34 s qLSbu7T8DOGdlFU3JYQyrKbsK bZuqG87Jyd+WEZgvBvmc8CqGf pve6okm7qzrJo1GnUtEYImqhV s rUyoQSW2f3GwCj10W88yOAknW JEsBJDuDTWtQZLbcXzics4jfZ 9wIi8+EZFuyBN5wJT7vC4uDbZ l HlQ0TAynG772TmVocXBoXhatt 0rje2xcfZq7NwGfWDTrlnLwrC fnCTI3m2EuJt79D4RaaMpvr8X w Glk4cz61lFAza0F6pMM8B9LjP FYaoapcmTLzvOelXN6kVRMwgi zzECEbqH3pDYBuP8f7SoAxTmF 1 KXmhT7YggmX7RJExnMShQCFzj DSPiB5efzeqs1ukhffaMaMtDU EtPEm5CGu9QDJgoLvxIePvBGM 0 LtQ3BCQ1jRYzwZ1klSmniwqwq G9wOyc+DRt7c8hgoFJbTM1kyZ T6MH49RK90jZXin2O6eSP1K5E h CAOumprcsrqhlVS7OAMeNTEqf R03Yd3lpYiiOa6lLQSaBED5AK ZyrLIgM6KqmB8iBzJhCQAyGSX w T1SkfDTuOEfzC095QRzeHsA6P OMshtOlE3UtNRWmzCfvQtI3t6 T7Nf7URK86YR38WK54uYOtm4O 5 gWH9U2HiLUOvfcjiclvzlCZ5H RIpYRNmwU39Qi7ecGvlDb3wJQ VmHEW0HHSnrQSoA8LlfX7pFuP j FACrRKLgM6SzdTEaFTigP563F JbpKcT8CJApaoTsC9AyVCUjhJ xbOfF0f0N7Pg8UEe30JM35VF4 8 kWNyh6U2iLP5Q8EfUEJxiyrmg cwhaQJ3PNJdXDVczD81Fv7myB heHl5yXYUkTXH0ANQqwKPnN4S v uT9iGwDuLHDkIFRuP9NadMRuJ NdoA839HPlpZiH0XVIijoYkJ4 LoVTWgkPtcYwJ8i6K7Ek8TYUq l rqo9A8BtNbbxxZM+XN60MVAaT B18jUUcyDHdx0rjwQq4VyOtWV LfZCN7sCglCVjym4RvYHRuB46 s bGFw (more content not included)... Normal [facility] Auto Diffon 03-23-2022 Basophils/100 WBC (Bld) 1.6 % Normal 0.0-2.0 [facility] Comment on above: Order Comment: Order Added by Discern Expert. Performed By: #### 2 [id number] ####87 [address] [address] [address] Basophils/Leukocyt es Auto (Bld) [Pure # fraction] 0.1 E9/L Normal 0.0-0.2 [facility] Comment on above: Order Comment: Order Added by Discern Expert. Performed By: #### 2 947830, 5867213, 0939707, 57682656, 1339369, 1251799, 16132439 ####[address] [address] Eosinophils/100 WBC (Bld) 1.8 % Normal 0.0-8.0 [facility] Comment on above: Order Comment: Order Added by Discern Expert. Performed By: #### 2 563543, 2664652, 2821150, 67499991, 1591540, 8075756, 85560288 ####[address] [place] [address] Eosinophils/Leukoc ytes Auto (Bld) [Pure # fraction] 0.1 E9/L Normal 0.0-0.5 [facility] Comment on above: Order Comment: Order Added by Discern Expert. Performed By: #### 2 508128, 6921252, 6603679, 79912863, 9685212, 7811302, 09946018 ####[address] [place] [address] Lymphocytes/100 WBC (Bld) 31.3 % Normal 14.0-50.0 [facility] Comment on above: Order Comment: Order Added by Discern Expert. Performed By: #### 2 945514, 3533934, 4885780, 01257484, 8157248, 5884681, 02290533 ####[address] [place] [address] Lymphocytes/Leukoc ytes Auto (Bld) [Pure # fraction] 2.2 E9/L Normal 1.0-4.0 [facility] Comment on above: Order Comment: Order Added by Discern Expert. Performed By: #### 2 501082, 0560085, 7651035, 37179422, 5854491, 9174347, 92437790 ####[address] [place] [address] Monocytes/100 WBC (Bld) 10.1 % Normal 4.0-14.0 [facility] Comment on above: Order Comment: Order Added by Discern Expert. Performed By: #### 2 919341, 2627552, 7323732, 41963859, 3171108, 6922182, 24349002 ####[address] [address] Monocytes/Leukocyt es Auto (Bld) [Pure # fraction] 0.7 E9/L Normal 0.2-1.0 [facility] Comment on above: Order Comment: Order Added by Discern Expert. Performed By: #### 2 160358, 6701505, 5417560, 18535518, 9814308, 2742743, 40811292 ####[address] [place] [address] Neutrophils/100 WBC (Bld) 55.2 % Normal 36.0-75.0 [facility] Comment on above: Order Comment: Order Added by Discern Expert. Performed By: #### 2 123314, 8286884, 3202321, 08321046, 2368944, 5547323, 84972063 ####[address] [place] [address] Neutrophils/Leukoc ytes Auto (Bld) [Pure # fraction] 3.8 E9/L Normal 2.0-7.5 [facility] Comment on above: Order Comment: Order Added by Discern Expert. Performed By: #### 2 018943, 6055998, 2741936, 14957429, 7115745, 3934177, 50706829 ####[facility] [address] [place] [address] B hCG Qualon 03-23-2022 Beta hCG Ql Negative Normal [facility] Comment on above: Performed By: #### 2 274215, 7805612, 6133800, 04872724, 6159987, 0419861, 46507193 ####[facility] [address] [place] [address] BMPon 03-23-2022 Creatinine [Mass/Vol] 0.7 mg/dL Normal 0.5-1.3 [facility] Comment on above: Performed By: #### 2 738976, 9119625, 1282144, 41447476, 7921248, 6702155, 98295554 ####[facility] [address] [place] [address] Urea nitrogen [Mass/Vol] 5 mg/dL Normal 5-21 [facility] Comment on above: Performed By: #### 2 207497, 0732106, 6652491, 92662319, 9255168, 5814769, 36076861 ####[facility] [address] [place] [address] Urea nitrogen/Creatinin e [Mass ratio] 7 No Units Low 10-20 [facility] Comment on above: Performed By: #### 2 941174, 3687146, 2923343, 65205072, 7108157, 3545582, 13074654 ####[facility] [address] [place] [address] Anion gap [Moles/Vol] 17 mmol/L High 6-16 [facility] Comment on above: Performed By: #### 2 374479, 9632807, 8565823, 67235817, 0597592, 6054498, 13646919 ####[facility] [address] [place] [address] Calcium [Mass/Vol] 9.3 mg/dL Normal 8.9-11.1 [facility] Comment on above: Performed By: #### 2 891230, 2802387, 3573862, 06726292, 0042953, 0724204, 69543579 ####[facility] [address] [place] [address] Chloride [Moles/Vol] 101 mmol/L Normal 101-111 [facility] Comment on above: Performed By: #### 2 819838, 2448965, 9358284, 55455944, 7210662, 1703031, 80489065 ####[facility] [address] [place] [address] CO2 [Moles/Vol] 24 mmol/L Normal 21-31 [facility] Comment on above: Performed By: #### 2 988026, 3750498, 1584206, 01600180, 7395774, 9600346, 43716699 ####[facility] [address] [place] [address] Glucose [Mass/Vol] 99 mg/dL Normal 55-199 [facility] Comment on above: Result Comment: If t his glucose result represents a fasting glucose, interpretation should refer to the following reference range: 55-99 mg/dL Performed By: #### 2 313106, 9731960, 0102283, 99005589, 5009592, 4702389, 07865781 ####[facility] [address] [place] [address] Potassium [Moles/Vol] 3.5 mmol/L Normal 3.5-5.3 [facility] Comment on above: Performed By: #### 2 196826, 1624956, 3295969, 46974529, 6279033, 8274244, 18671517 ####[facility] [address] [place] [address] Sodium [Moles/Vol] 138 mmol/L Normal 135-145 [facility] Comment on above: Performed By: #### 2 081525, 8407654, 1877598, 01180640, 5287528, 2236859, 43352897 ####[address] [place] [address] CBC w/ Auto Diffon Erythrocyte distribution width (RBC) [Ratio] 13.0 % Normal 10.9-14.2 [facility] Comment on above: Performed By: #### 2 140567, 9617725, 2760936, 67238110, 6949129, 9551543, 26384357 ####[address] [address] Hematocrit (Bld) [Volume fraction] 39.9 % Normal 34.0-46.0 [facility] Comment on above: Performed By: #### 2 574619, 5968460, 6940262, 73037222, 9570258, 2933717, 50257845 ####[address] [address] Hemoglobin (Bld) [Mass/Vol] 13.5 g/dL Normal 12.0-16.0 [facility] Comment on above: Performed By: #### 2 922511, 5759653, 3291258, 11946236, 4471796, 3159097, 81884089 ####[address] [address] MCH (RBC) [Entitic mass] 33.8 pg Normal 27.0-34.0 [facility] Comment on above: Performed By: #### 2 844970, 5336673, 9872090, 10682512, 4592055, 5518429, 16451015 ####[address] [address] MCHC (RBC) [Mass/Vol] 34.0 g/dL Normal 31.4-36.0 [facility] Comment on above: Performed By: #### 2 423288, 8632629, 1220923, 58091769, 5294424, 5888041, 88882532 ####[address] [address] MCV (RBC) [Entitic vol] 99.5 fL Normal 80.0-100.0 [facility] Comment on above: Performed By: #### 2 803929, 8954565, 5075892, 68454133, 7962960, 1677324, 51035616 ####[facility] [address] [place] [address] Platelet mean volume (Bld) [Entitic vol] 8.1 fL Normal 6.4-10.8 [facility] Comment on above: Performed By: #### 2 845293, 2469204, 1549264, 47948476, 4544749, 9839364, 33375912 ####[address] [place] [address] Platelets (Bld) [#/Vol] 365.0 E9/L Normal 150.0-500.0 [facility] Comment on above: Performed By: #### 2 648302, 8551974, 4969467, 82136385, 7515637, 7426885, 71187751 ####[address] [address] RBC (Bld) [#/Vol] 4.0 E12/L Low 4.3-5.9 [facility] Comment on above: Performed By: #### 2 084475, 9660843, 8815312, 27696509, 5786134, 0285728, 89873683 ####[address] [place] [address] WBC corrected for nucl RBC Auto (Bld) [#/Vol] 6.9 E9/L Normal 4.0-11.0 [facility] Comment on above: Performed By: #### 2 291702, 8019312, 0852055, 76083206, 9056407, 4760968, 67663821 ####[address] [address] CHEMISTRYOrdered By: SYSTEM SYSTEM on 03-23-2022 Albumin [Mass/Vol] 4.3 g/dL Normal 3.3 - 5.0 gm/dL [facility] [place]isol Albumin/Globulin [Mass ratio] 1.5 {ratio} Normal [...] rate/Area] mL/min/1.73 m2 Normal >=59mL/min/1.7 3 m2 [facility] [place] Chem S GFR/1.73 sq M.predicted among non-blacks [...] 7.1 g/dL Normal 6.0 - 7.8 gm/dL [facility] Remisol Sodium [Moles/Vol] 138 mmol/L Normal 135 - 145 mmol/L [facility] Remisol Urea nitrogen [Mass/Vol] 5 mg/dL Normal 5 - 21 mg/dL [facility] Remisol Urea nitrogen/Creatinin e [Mass ratio] 7 mg/mg Low 10 - 20 [facility] Remisol Consent for Treatmenton Consent for Treatment [id number]:12 7 Normal [facility] Discharge Instructionson Discharge Instructions [id number]:12 7 Normal [facility] ED Clinical Summaryon 2021 ED Clinical Summary [address] [place] [address] ED Clinical Summary Person Information Name: BERENICE SANTOS [facility] Age: 26 Years : 1995 Sex: Female Language: Indian PCP: JUSTIN MAX DO Marital Status: Visit [...] 03/23/2022 15:45:11 03/23/2022 15:45:11 03/23/2022 15:45:11 ADDR[place]: [id number] [address] [facility] [address] [place] [id number] PHYS DOC NOTES: MEDICAL INFORMATION: Prescriptions Given: New Medications [facility], [address], [place] [id number], [phone] ondansetron (Zofran ODT 4 mg Tab-Dis) 1 [...] Lower Gastrointestinal Bleeding; Bloody Diarrhea; Rectal Bleeding, Ghoq-gw-Fhjn Follow up: With: Address: When: Roma HAWKINS [address] [place], [place] [address] Business (1) In 3 days 03/26/2022 Comments: Follow-up with Dr. Hawkins for further evaluation of your blood in your stool. With: Address: When: JUSTIN MAX [address] [place] [address] Business (1) In 3 days 03/26/2022 Comments: Follow-up with your primary care provider in 3 to 5 days. If symptoms worsen, do not improve, or new symptoms arise please report back to emergency department for further evaluation. DIAGNOSIS: Blood in stool Normal [facility] ED Note-Physicianon 03-23-20 ED Note-Physician Basic Information [...] Nausea/Vomiting, # 12 tab(s), Refills(s) 0, Pharmacy: [facility], 157, cm, 03/23/22 13:50:00 EST, Height/Length [...] Given NS1 (more content not included)... Normal [facility] Comment on above: Result Comment: Elec tronically [...] Follow these instructions at home: ? Take cloz-acu-lpdrxjg and prescription medicines only as told by [...] 08/18/2016 Document Revised: 07/26/2019 Document Reviewed: 08/18/2016 [employer] Patient Education ? 2019 [employer] Rectal Bleeding Rectal bleeding is when blood comes out of the opening of the butt (anus). People with this kind of bleeding may notice bright red blood in their underwear or in the toilet after they poop (have a bowel movement). They may also (more content not included)... Normal [facility] ED Patient Summaryon 022 ED Patient Summary (Inserted Image. Laureen ble to display) [place] [id number] Patient Discharge Instructions Person Information Name: BERENICE SANTOS Age: 26 Years Arrival Date: 03/23/2022 13:42:10 Discharge Diagnosis: Blood in stool Primary Care Physician: JUSTIN MAX DO Provider Information Primary Provider: Rodnye Johnson M.D. Advanced Senior Partner:None The exam and treatment you received in the Emergency Department were for an urgent problem and are not intended as complete care. It is important that you follow up with a doctor, nurse practitioner, or physician?s hospital aides and assistants teacher for ongoing care. If your symptoms become worse or you do not improve as expected and you are unable to reach your usual health care provider, you should return to the Emergency Department. We are available 24 hours a day. BERENICE SANOTS has been given the following list of patient education materials, prescriptions and follow-up instructions: Follow-up Instructions: With: Address: When: Roma HAWKINS [address] [place], [place] [address] [facility] (1) In 3 days 03/26/2022 Comments: Follow-up with Dr. Hawkins for further evaluation of your blood in your stool. With: Address: When: JUSTIN MAX [address] [place] [address] [facility] (1) In 3 days 03/26/2022 Comments: Follow-up [...] Lower Gastrointestinal Bleeding; Bloody Diarrhea; Rectal Bleeding, Slqo-le-Dvda A MESSAGE TO ALL PATIENTS REGARDING OPIOIDS PRESCRIPTION OPIOIDS: WHAT YOU NEED TO KNOW Prescription opioids can be used to help relieve puxqvhft-nw-nfcuiw pain and are often prescribed following a [...] your comm (more content not included)... Normal [facility] HEMATOLOGYOrdered By: SYSTEM SYSTEM on 03-23-2022 Basophils/100 WBC (Bld) 1.6 % Normal 0.0 - 2.0 % [facility] [place] HemeAutoSS Basophils/Leukocyt es Auto (Bld) [Pure # fraction] 0.1 E9/L Normal 0.0 - 0.2 E9/L FT HemeAutoSS Eosinophils/100 WBC (Bld) 1.8 % Normal 0.0 - 8.0 % [facility] [place] HemeAutoSS Eosinophils/Leukoc ytes Auto (Bld) [Pure # [...] 6.9 E9/L Normal 4.0 - 11.0 E9/L [facility] [place] HemeAutoSS Hep Func Panelon 03-23-2022 Bilirubin.indirect [Mass or moles/Vol] UT Abnormal 0.1-0.9 [facility] Comment on above: Result Comment: Resu lt verified by Discern Rule. Performed result UT (Unable to Calculate) was sent as an Alpha code due the inability to calculate a valid numeric value. Performed By: #### 2 384695, 5255380, 5981934, 42453856, 1110347, 2708432, 95537737 ####[address] [place] [address] Albumin [Mass/Vol] 4.3 g/dL Normal 3.3-5.0 [facility] Comment on above: Performed By: #### 2 279071, 4727527, 9981229, 82402115, 2636529, 1504581, 04184725 ####[facility] [address] [place] [address] Albumin/Globulin (S) [Mass conc ratio] 1.5 Normal 1.1-2.2 [facility] Comment on above: Performed By: #### 2 946824, 9180388, 9063694, 72966355, 8449031, 9079853, 52693948 ####[address] [place] [address] ALP [Catalytic activity/Vol] 50 Int._Unit/L Normal 21-98 [facility] Comment on above: Performed By: #### 2 660325, 9430425, 8742413, 94176069, 6298515, 2716115, 49363479 ####[address] [place] [address] ALT No additional P-5'-P [Catalytic activity/Vol] 20 Int._Unit/L Normal 6-46 [facility] Comment on above: Performed By: #### 2 537168, 3274181, 4522555, 82549954, 9590270, 6763603, 00475353 ####[facility] [address] [place] [address] AST [Catalytic activity/Vol] 19 Int._Unit/L Normal 5-43 [facility] Comment on above: Performed By: #### 2 148747, 1765224, 8333345, 01235947, 6612246, 0062946, 24218736 ####[address] [place] [address] Bilirubin [Mass/Vol] 0.4 mg/dL Normal 0.0-1.1 [facility] Comment on above: Performed By: #### 2 781013, 1408527, 4096909, 88543425, 6807063, 4752298, 83227192 ####[address] [address] Bilirubin.direct [Mass/Vol] mg/dL Normal 0.1-0.4 [facility] Comment on above: Performed By: #### 2 571158, 4553783, 0598322, 23415576, 2636388, 3976125, 39655974 ####[address] [address] Globulin (S) [Mass/Vol] 2.8 g/dL Normal 1.4-4.0 [facility] Comment on above: Performed By: #### 2 780361, 3674314, 7755832, 74982508, 1197589, 9647518, 97724759 ####[address] [place] [address] Protein [Mass/Vol] 7.1 g/dL Normal 6.0-7.8 [facility] Comment on above: Performed By: #### 2 038242, 2288486, 9264254, 85600745, 5348103, 9351401, 57768128 ####[address] [place] [address] Lipase Levelon 03-23-2022 Lipase [Catalytic activity/Vol] 24 U/L Normal 13-58 [facility] Comment on above: Performed By: #### 2 943445, 0051687, 7212225, 68166716, 0568550, 2650395, 02245909 ####[address] [address] SEROLOGYOrdered By: Dana Garsia on 03-23-2022 Beta hCG Ql Negative (03/23/22 2:15 PM) Normal [facility] [place] Man Sero UA With Cult Reflexon 2021 Bilirubin Ql (U) Negative Normal Negative [facility] Comment on above: Performed By: #### 1 7490712 ####[address] [address] Clarity (U) CLEAR Normal Clear [facility] Comment on above: Performed By: #### 1 8188558 ####[address] [address] Color (U) YELLOW Normal Yellow [facility] Comment on above: Performed By: #### 1 4430213 ####[address] [address] Epithelial cells.squamous LM.HPF (Urine sed) [#/Area] 0-2 Normal 0-2 [facility] Comment on above: Performed By: #### 1 5451892 ####[address] [address] Glucose Test strip (U) [Mass/Vol] Negative Normal Negative [facility] Comment on above: Performed By: #### 1 1847288 ####[address] [address] Hemoglobin Ql (U) Negative Normal Negative [facility] Comment on above: Performed By: #### 1 5407444 ####[address] [address] Ketones (U) [Mass/Vol] Negative Normal Negative [facility] Comment on above: Performed By: #### 1 0726487 ####[address] [address] [place].plasma/Lit hium.RBC (Bld) [Mass ratio] 0-3 Normal 0-3 [facility] Comment on above: Performed By: #### 1 9125332 ####[facility] [address] [place] [address] Nitrite Ql (U) Negative Normal Negative [facility] Comment on above: Performed By: #### 1 4099840 ####[address] [address] pH (U) 6.5 [pH] Invalid Interpretation Code 5.0-9.0 [facility] Comment on above: Performed By: #### 1 4007360 ####[address] [address] Protein (U) [Mass/Vol] Negative Normal Negative [facility] Comment on above: Performed By: #### 1 9879417 ####[address] [address] Specific gravity (U) [Rel density] 1.010 Invalid Interpretation Code 1.005-1.030 [facility] Comment on above: Performed By: #### 1 0823906 ####[address] [address] Type of Urine collection method Clean Catch Normal [facility] Comment on above: Performed By: #### 1 7155115 ####[address] [address] Urobilinogen Qn (U) 0.2 {Chiara'U}/dL Normal 0.0-1.0 [facility] Comment on above: Performed By: #### 1 5559250 ####[address] [address] WBC Auto Ql (U) Negative Normal Negative [facility] Comment on above: Performed By: #### 1 2649460 ####[address] [address] WBC LM.HPF (Urine sed) [#/Area] 0-5 Normal 0-5 [facility] Comment on above: Performed By: #### 1 5107974 ####[facility] [address] [place] [address] URINALYSISOrdered By: Mychal Garsia on 03-23-2022 Bilirubin [...] PM) Normal Negative [facility] UA Auto SS [place].plasma/Lit hium.RBC (Bld) [Mass ratio] 0-3 /HPF Normal [...] [facility] UA Auto SS Urobilinogen Qn (U) 0.6958337 {Chiara'U}/dL Normal 0.0 - 1.0 EU/dL [facility] UA Auto SS WBC Auto Ql (U) Negative (03/23/22 2:54 PM) Normal Negative [facility] UA Auto SS WBC LM.HPF (Urine sed) [#/Area] 0-5 /HPF Normal 0-5/HPF [facility] UA Auto SS eGFRon 03-23-2022 GFR/1.73 sq M.predicted among blacks MDRD (S/P/Bld) [Vol rate/Area] mL/min/{1.73_m2} Normal >=59 [facility] Comment on above: Order Comment: Order added by Discern Expert. Result Comment: eGFR is race adjusted. AA=. Performed By: #### 2 648383, 6855694, 8395606, 11647234, 9572837, 8470328, 89953228 ####[facility] [address] [place] [address] GFR/1.73 sq M.predicted among non-blacks MDRD (S/P/Bld) [Vol rate/Area] mL/min/{1.73_m2} Normal >=59 [facility] Comment on above: Order Comment: Order added by Discern Expert. Result Comment: [employer] juan pablo kidney disease could be indicated at eGFR's of less than 60 mL/min/1.73m2. Kidney failure is indicated at less than 15 mL/min/1.73m2. Performed By: #### 2 009630, 2604904, 8614782, 64335194, 1732775, 6694596, 19672990 ####[facility] [address] [place] [address] COVID + FLU Quick Testingon 01-06-2022 SARS-CoV-2 (COVID-19) RNA MAKEDA+probe Ql (Unsp spec) Negative [facility] Other COVID + FLU Quick Testing Negative [facility] Other COVID + FLU Quick Testing [facility] Other Lower GI hemoglobin IA Ql (S tl)on 06-21-2021 Occult Blood, Fecal - x1 [facility] Other Vital Signs Date Time Vital Sign Value Performing Clinician Facility 05-23-2023 14:44-0500 Body mass index (BMI) [Ratio] 36.74 kg/m2 Anjali MARTINEZ Work Phone: [facility] 05-23-2023 14:44-0500 Body weight 92.59 kg Anjali Winstonayush MARTINEZ Work Phone: [facility] 05-23-2023 14:44-0500 Diastolic blood pressure 78 mm[Hg] Anjali MARTINEZ Work Phone: [facility] 05-23-2023 14:44-0500 Systolic blood pressure 118 mm[Hg] Anjali Winstonayush MARTINEZ Work Phone: [facility] 02-22-2023 14:30-0500 Diastolic blood pressure 74 mm[Hg] [facility] 02-22-2023 14:30-0500 Heart rate 74 /min [facility] 02-22-2023 14:30-0500 Respiratory rate 18 /min [facility] 02-22-2023 14:30-0500 SaO2% (BldA) [Mass fraction] 98 % [facility] 02-22-2023 14:30-0500 Systolic blood pressure 126 mm[Hg] [facility] 02-22-2023 12:10-0500 Body temperature 98.06 [degF] [facility] 02-22-2023 12:10-0500 Diastolic blood pressure 64 mm[Hg] [facility] 02-22-2023 12:10-0500 Heart rate 66 /min [facility] 02-22-2023 12:10-0500 Respiratory rate 18 /min [facility] 02-22-2023 12:10-0500 SaO2% (BldA) [Mass fraction] 99 % [facility] 02-22-2023 12:10-0500 Systolic blood pressure 105 mm[Hg] [facility] 12-12-2022 08:45-0400 Body height 157.48 cm Justin Max Other [facility] Other 12-12-2022 08:45-0400 Body mass index (BMI) [Ratio] 32.74 kg/m2 Justin Mansoor Other [facility] Other 12-12-2022 08:45-0400 Body temperature 96.9 [degF] Justin Mansoor Other [facility] Other 12-12-2022 08:45-0400 Body weight 81.19 kg Justin Mansoor Other [facility] Other 12-12-2022 08:45-0400 Diastolic blood pressure 78 mm[Hg] Justin Mansoor Other [facility] Other 12-12-2022 08:45-0400 Respiratory rate 20 /min Justin Mansoor Other [facility] Other 12-12-2022 08:45-0400 SaO2% (BldA) [Mass fraction] 97 % Justin Mansoor Other [employer] [facility] Other 12-12-2022 08:45-0400 Systolic blood pressure 122 mm[Hg] Justin Mansoor Other [facility] Other 11-11-2022 11:15-0400 Body height 157.48 cm Justin Mansoor Other [facility] Other 11-11-2022 11:15-0400 Body mass index (BMI) [Ratio] 31.09 kg/m2 Justin Mansoor Other [facility] Other 11-11-2022 11:15-0400 Body temperature 96.9 [degF] Justin Mansoor Other [facility] Other 11-11-2022 11:15-0400 Body weight 77.11 kg Justin Mansoor Other [facility] Other 11-11-2022 11:15-0400 Diastolic blood pressure 78 mm[Hg] Justin Mansoor Other [employer] Other 11-11-2022 11:15-0400 Respiratory rate 20 /min Justin Mansoor Other [employer] Other 11-11-2022 11:15-0400 SaO2% (BldA) [Mass fraction] 97 % Justin Mansoor Other [employer] Other 11-11-2022 11:15-0400 Systolic blood pressure 114 mm[Hg] Justin Mansoor Other [employer] Other 11-09-2022 13:43-0400 Blood Pressure Location Olena Mal [facility] 11-09-2022 13:43-0400 Body temperature 97.7 [degF] Olena Mal [facility] 11-09-2022 13:43-0400 Diastolic blood pressure 69 mm[Hg] Olena Mal [facility] 11-09-2022 13:43-0400 Heart rate 111 /min Olena Mal [facility] 11-09-2022 13:43-0400 Systolic blood pressure 104 mm[Hg] Olena Mal [facility] 10-12-2022 11:45-0400 Body height 157.48 cm Justin Mansoor Other [employer] Other 10-12-2022 11:45-0400 Body mass index (BMI) [Ratio] 31.09 kg/m2 Justin Mansoor Other [employer] Other 10-12-2022 11:45-0400 Body temperature 97.4 [degF] Justin Mansoor Other [employer] Other 10-12-2022 11:45-0400 Body weight 77.11 kg Justin Mansoor Other [employer] Other 10-12-2022 11:45-0400 Diastolic blood pressure 68 mm[Hg] Justin Mansoor Other [employer] Other 10-12-2022 11:45-0400 Respiratory rate 20 /min Justin Mansoor Other [employer] Other 10-12-2022 11:45-0400 SaO2% (BldA) [Mass fraction] 98 % Justin Mansoor Other [employer] Other 10-12-2022 11:45-0400 Systolic blood pressure 112 mm[Hg] Justin Mansoor Other [employer] Other 09-26-2022 14:25-0400 Blood Pressure Location Brandon SALAM [facility] 09-26-2022 14:25-0400 Diastolic blood pressure 57 mm[Hg] Brandon SALAM [facility] 09-26-2022 14:25-0400 Heart rate 97 /min Brandon SALAM [facility] 09-26-2022 14:25-0400 Respiratory rate 16 /min Brandon SALAM [facility] 09-26-2022 14:25-0400 SaO2% (BldA) [Mass fraction] 97 % Brandon SALAM [facility] 09-26-2022 14:25-0400 Systolic blood pressure 107 mm[Hg] Brandon SALAM [facility] 09-26-2022 14:10-0400 Blood Pressure Location Brandon SALAM [facility] 09-26-2022 14:10-0400 Diastolic blood pressure 65 mm[Hg] Brandon SALAM [facility] 09-26-2022 14:10-0400 Heart rate 98 /min Brandon SALAM [facility] 09-26-2022 14:10-0400 Respiratory rate 20 /min Brandon SALAM [facility] 09-26-2022 14:10-0400 SaO2% (BldA) [Mass fraction] 97 % Brandon SALAM [facility] 09-26-2022 14:10-0400 Systolic blood pressure 105 mm[Hg] Brandon SALAM [facility] 09-26-2022 13:59-0400 Blood Pressure Location Brandon SALAM [facility] 09-26-2022 13:59-0400 Diastolic blood pressure 65 mm[Hg] Brandon SALAM [facility] 09-26-2022 13:59-0400 Heart rate 101 /min Brandon SALAM [facility] 09-26-2022 13:59-0400 Respiratory rate 17 /min Brandon SALAM [facility] 09-26-2022 13:59-0400 SaO2% (BldA) [Mass fraction] 98 % Brandon SALAM [facility] 09-26-2022 13:59-0400 Systolic blood pressure 99 mm[Hg] Brandon SALAM [facility] 09-26-2022 13:44-0400 Body temperature 97.52 [degF] Brandon SALAM [facility] 09-26-2022 13:27-0400 Respiratory rate 18 /min Brandon SALAM [facility] 09-26-2022 13:05-0400 Body temperature 96.8 [degF] Brandon SALAM [facility] 09-26-2022 13:05-0400 Respiratory rate 19 /min Brandon SALAM [facility] 09-14-2022 11:45-0400 Body height 157.48 cm [employer] Other [employer] Other 09-14-2022 11:45-0400 Body mass index (BMI) [Ratio] 30.18 kg/m2 Justin Mansoor Other [employer] Other 09-14-2022 11:45-0400 Body temperature 97.2 [degF] Justin Mansoor Other [employer] Other 09-14-2022 11:45-0400 Body weight 74.84 kg Justin Mansoor Other [employer] Other 09-14-2022 11:45-0400 Diastolic blood pressure 72 mm[Hg] Justin Mansoor Other [employer] Other 09-14-2022 11:45-0400 Respiratory rate 20 /min Justin Mansoor Other [employer] Other 09-14-2022 11:45-0400 SaO2% (BldA) [Mass fraction] 98 % Justin Mansoor Other [employer] Other 09-14-2022 11:45-0400 Systolic blood pressure 112 mm[Hg] Justin Mansoor Other [employer] Other 08-17-2022 12:15-0400 Body height 157.48 cm Justin Mansoor Other [employer] Other 08-17-2022 12:15-0400 Body mass index (BMI) [Ratio] 29.99 kg/m2 Justin Mansoor Other [employer] Other 08-17-2022 12:15-0400 Body temperature 97.2 [degF] Justin Mansoor Other [employer] Other 08-17-2022 12:15-0400 Body weight 74.39 kg Justin Mansoor Other [employer] Other 08-17-2022 12:15-0400 Diastolic blood pressure 82 mm[Hg] Justin Mansoor Other [employer] Other 08-17-2022 12:15-0400 Respiratory rate 20 /min Justin Mansoor Other [employer] Other 08-17-2022 12:15-0400 SaO2% (BldA) [Mass fraction] 97 % Justin Mansoor Other [facility] [employer] Other 08-17-2022 12:15-0400 Systolic blood pressure 28 mm[Hg] Justin Mansoor Other [facility] [employer] Other 08-05-2022 08:12-0400 Diastolic blood pressure 68 mm[Hg] Román Dominguez [facility] 08-05-2022 08:12-0400 Heart rate 105 /min Román Dominguez [facility] 08-05-2022 08:12-0400 SaO2% (BldA) [Mass fraction] 98 % Román Dominguez [facility] 08-05-2022 08:12-0400 Systolic blood pressure 117 mm[Hg] Román Dominguez [facility] 07-27-2022 09:30-0400 Blood Pressure Location Olena Resendez [facility] 07-27-2022 09:30-0400 Body temperature 97.34 [degF] Olena Resendez [facility] 07-27-2022 09:30-0400 Diastolic blood pressure 70 mm[Hg] Olena Resendez [facility] 07-27-2022 09:30-0400 Heart rate 102 /min Olena Resendez [facility] 07-27-2022 09:30-0400 Systolic blood pressure 107 mm[Hg] Olena Resendez [facility] 07-19-2022 12:30-0400 Body height 157.48 cm Justin Mansoor Other [employer] Other 07-19-2022 12:30-0400 Body mass index (BMI) [Ratio] 30.36 kg/m2 Justin Mansoor Other [employer] Other 07-19-2022 12:30-0400 Body temperature 97.4 [degF] Justin Mansoor Other [employer] Other 07-19-2022 12:30-0400 Body weight 75.3 kg Justin Mansoor Other [employer] Other 07-19-2022 12:30-0400 Diastolic blood pressure 68 mm[Hg] Justin Mansoor Other [employer] Other 07-19-2022 12:30-0400 Respiratory rate 20 /min Justin Mansoor Other [employer] Other 07-19-2022 12:30-0400 SaO2% (BldA) [Mass fraction] 97 % Justin Mansoor Other [employer] Other 07-19-2022 12:30-0400 Systolic blood pressure 116 mm[Hg] Justin Mansoor Other [employer] Other 06-06-2022 11:45-0500 Body height 157.48 cm Justin Mansoor Other [employer] Other 06-06-2022 11:45-0500 Body mass index (BMI) [Ratio] 31.46 kg/m2 Justin Mansoor Other [employer] Other 06-06-2022 11:45-0500 Body temperature 96.8 [degF] Justin Mansoor Other [employer] Other 06-06-2022 11:45-0500 Body weight 78.02 kg Justin Mansoor Other [employer] Other 06-06-2022 11:45-0500 Diastolic blood pressure 72 mm[Hg] Justin Mansoor Other [employer] Other 06-06-2022 11:45-0500 Respiratory rate 20 /min Justin Mansoor Other [employer] Other 06-06-2022 11:45-0500 SaO2% (BldA) [Mass fraction] 97 % Justin Mansoor Other [employer] Other 06-06-2022 11:45-0500 Systolic blood pressure 122 mm[Hg] Justin Mansoor Other [employer] Other 04-21-2022 11:30-0500 Body height 157.48 cm Justin Mansoor Other [employer] Other 04-21-2022 11:30-0500 Body mass index (BMI) [Ratio] 31.64 kg/m2 Justin Mansoor Other [employer] Other 04-21-2022 11:30-0500 Body temperature 97.5 [degF] Justin Mansoor Other [employer] Other 04-21-2022 11:30-0500 Body weight 78.47 kg Justin Mansoor Other [employer] Other 04-21-2022 11:30-0500 Diastolic blood pressure 68 mm[Hg] Justin Mansoor Other [employer] Other 04-21-2022 11:30-0500 Respiratory rate 20 /min Justin Mansoor Other [employer] Other 04-21-2022 11:30-0500 SaO2% (BldA) [Mass fraction] 99 % Justin Mansoor Other [employer] Other 04-21-2022 11:30-0500 Systolic blood pressure 110 mm[Hg] Justin Mansoor Other [employer] Other 03-23-2022 15:00-0500 Diastolic blood pressure 66 mm[Hg] [facility] 03-23-2022 15:00-0500 Heart rate 75 /min [facility] 03-23-2022 15:00-0500 Mean blood pressure 81 mm[Hg] [facility] 03-23-2022 15:00-0500 Systolic blood pressure 112 mm[Hg] [facility] 03-23-2022 14:25-0500 Diastolic blood pressure 69 mm[Hg] [facility] 03-23-2022 14:25-0500 Heart rate 94 /min [facility] 03-23-2022 14:25-0500 Respiratory rate 14 /min [facility] 03-23-2022 14:25-0500 SaO2% (BldA) [Mass fraction] 100 % [facility] 03-23-2022 14:25-0500 Systolic blood pressure 84 mm[Hg] [facility] 03-23-2022 13:48-0500 Body temperature 98.06 [degF] [facility] 03-23-2022 13:48-0500 Diastolic blood pressure 84 mm[Hg] [facility] 03-23-2022 13:48-0500 Heart rate 100 /min [facility] 03-23-2022 13:48-0500 Respiratory rate 16 /min [facility] 03-23-2022 13:48-0500 SaO2% (BldA) [Mass fraction] 99 % [facility] 03-23-2022 13:48-0500 Systolic blood pressure 128 mm[Hg] [facility] 12-02-2021 11:00-0400 Body height 157.48 cm Justin Mansoor Other [employer] Other 12-02-2021 11:00-0400 Body mass index (BMI) [Ratio] 34.56 kg/m2 Justin Mansoor Other [employer] Other 12-02-2021 11:00-0400 Body temperature 97.6 [degF] Justin Mansoor Other [employer] Other 12-02-2021 11:00-0400 Body weight 85.73 kg Justin Mansoor Other [employer] Other 12-02-2021 11:00-0400 Diastolic blood pressure 82 mm[Hg] Justin Mansoor Other [employer] Other 12-02-2021 11:00-0400 Respiratory rate 20 /min Justin Mansoor Other [employer] Other 12-02-2021 11:00-0400 SaO2% (BldA) [Mass fraction] 98 % Justin Mansoor Other [employer] Other 12-02-2021 11:00-0400 Systolic blood pressure 122 mm[Hg] Justin Mansoor Other [employer] Other 11-05-2021 11:45-0400 Body height 157.48 cm Justin Mansoor Other [employer] Other 11-05-2021 11:45-0400 Body mass index (BMI) [Ratio] 35.3 kg/m2 Justin Mansoor Other [employer] Other 11-05-2021 11:45-0400 Body temperature 98.6 [degF] Justin Mansoor Other [employer] Other 11-05-2021 11:45-0400 Body weight 87.54 kg Justin Mansoor Other [employer] Other 11-05-2021 11:45-0400 Diastolic blood pressure 82 mm[Hg] Justin Mansoor Other [employer] Other 11-05-2021 11:45-0400 Respiratory rate 20 /min Justin Mansoor Other [employer] Other 11-05-2021 11:45-0400 SaO2% (BldA) [Mass fraction] 98 % Justin Mansoor Other [employer] Other 11-05-2021 11:45-0400 Systolic blood pressure 128 mm[Hg] Justin Mansoor Other [employer] Other 10-05-2021 13:45-0400 Body height 157.48 cm Justin Mansoor Other [employer] Other 10-05-2021 13:45-0400 Body mass index (BMI) [Ratio] 36.21 kg/m2 Justin Mansoor Other [employer] Other 10-05-2021 13:45-0400 Body temperature 98.3 [degF] Justin Mansoor Other [employer] Other 10-05-2021 13:45-0400 Body weight 89.81 kg Justin Mansoor Other [employer] Other 10-05-2021 13:45-0400 Diastolic blood pressure 62 mm[Hg] Justin Mansoor Other [employer] Other 10-05-2021 13:45-0400 Respiratory rate 20 /min Justin Mansoor Other [employer] Other 10-05-2021 13:45-0400 SaO2% (BldA) [Mass fraction] 98 % Justin Mansoor Other [employer] Other 10-05-2021 13:45-0400 Systolic blood pressure 96 mm[Hg] Justin Mansoor Other [employer] Other 08-12-2021 12:54-0400 Blood Pressure Location [facility] 08-12-2021 12:54-0400 Diastolic blood pressure 84 mm[Hg] Brandon SALAM [facility] 08-12-2021 12:54-0400 Heart rate 75 /min Brandon SALAM [facility] 08-12-2021 12:54-0400 Respiratory rate 16 /min Brandon SALAM [facility] 08-12-2021 12:54-0400 Systolic blood pressure 132 mm[Hg] Brandon SALAM [facility] 06-08-2021 12:15-0500 Body height 157.48 cm Justin Mansoor Other [employer] Other 06-08-2021 12:15-0500 Body mass index (BMI) [Ratio] 36.76 kg/m2 Justin Mansoor Other [employer] Other 06-08-2021 12:15-0500 Body temperature 98.9 [degF] Justin Mansoor Other [employer] Other 06-08-2021 12:15-0500 Body weight 91.17 kg Justin Mansoor Other [employer] Other 06-08-2021 12:15-0500 Diastolic blood pressure 82 mm[Hg] Justin Mansoor Other [employer] Other 06-08-2021 12:15-0500 Respiratory rate 20 /min Justin Mansoor Other [employer] Other 06-08-2021 12:15-0500 SaO2% (BldA) [Mass fraction] 97 % Justin Max Other [employer] Other 06-08-2021 12:15-0500 Systolic blood pressure 122 mm[Hg] Justin Max Other [employer] Other Encounters Encounter Date Encounter Type Care Provider Facility Start: 06-06-2023 End: 06-06-2023 ambulatory JOCE ARIEL Not Available Start: 05-23-2023 End: 05-23-2023 ambulatory ANJALI VILLEDA Not Available Start: 05-23-2023 End: 05-23-2023 flow sheet Anjali Villeda PA Work Phone: [facility] Comment on above: Third trimester preg daniel; Gestational diabetes mellitus (GDM), antepartum, gestational diabetes method of control unspecified; Elevated glucose tolerance test Start: 05-15-2023 End: 05-15-2023 ambulatory Justin Max Other [employer] Other Start: 05-15-2023 Telephone encounter Justin Max [facility] [place] Start: 05-09-2023 End: 05-09-2023 ambulatory JOCE ARIEL Not Available Start: 04-25-2023 End: 04-25-2023 ambulatory ANJALI VILLEDA Not Available Start: 04-05-2023 End: 04-05-2023 ambulatory William Payne Other [employer] Other Start: 04-05-2023 Encounter by juan Payne [facility] [place] Start: 04-04-2023 End: 04-04-2023 ambulatory JOCE ARIEL Not Available Start: 03-02-2023 End: 03-02-2023 ambulatory JOCE ARIEL Not Available Start: 02-22-2023 End: 02-22-2023 Emergency department patient visit Rodney Johnson Facility:[facility] Start: 02-22-2023 End: 02-22-2023 Emergency department patient visit Rodney Johnson [facility] Start: 02-01-2023 End: 02-01-2023 ambulatory Justin Mansoor Other [employer] Other Start: 02-01-2023 Telephone encounter Justin Mansoor [facility] Start: 01-11-2023 End: 01-11-2023 ambulatory William Payne Other [employer] Other Start: 01-11-2023 Encounter by [employer] William Payne [facility] [place] Start: 12-30-2022 End: 12-30-2022 ambulatory Justin Mansoor Other [employer] Other Start: 12-30-2022 Telephone encounter Justin Mansoor [facility] Start: 12-16-2022 End: 12-16-2022 ambulatory Justin Mansoor Other [employer] [facility] Start: 12-16-2022 Encounter by [employer] Justin Mansoor [facility] Start: 12-15-2022 End: 12-15-2022 ambulatory Justin Mansoor Other [employer] [facility] Start: 12-15-2022 Encounter by [employer] Justin Mansoor [facility] Start: 12-12-2022 End: 12-12-2022 ambulatory Justin Mansoor Other [employer] [facility] Start: 12-12-2022 Office outpatient vi sit 15 minutes Justin Mansoor [facility] Start: 11-30-2022 End: 11-30-2022 ambulatory Justin Mansoor Other [employer] [facility] Start: 11-30-2022 Encounter by [employer] Justin Mansoor [facility] Start: 11-28-2022 End: 11-29-2022 ambulatory William Schulzer Facility:[facility] Start: 11-15-2022 End: 11-15-2022 ambulatory William Schulzer Other [employer] Other Start: 11-15-2022 Office outpatient vi sit 15 minutes William Payne [facility] [place] Start: 11-14-2022 End: 11-14-2022 ambulatory Justin Mansoor Other [employer] Other Start: 11-14-2022 Telephone encounter Justin Mansoor [facility] Start: 11-11-2022 End: 11-11-2022 ambulatory Justin Mansoor Other [employer] Other Start: 11-11-2022 Office outpatient vi sit 15 minutes Justin Mansoor [facility] Start: 11-11-2022 Telephone encounter Justin Mansoor [facility] Start: 11-09-2022 End: 11-10-2022 ambulatory Olena Resendez Facility:[facility] Start: 11-09-2022 End: 11-09-2022 Patient encounter procedure Olena Resendez [facility] Start: 11-03-2022 End: 11-03-2022 ambulatory William Payne Other [employer] Other Start: 11-03-2022 Encounter by [employer] William Payne [facility] [place] Start: 11-01-2022 End: 11-01-2022 ambulatory Justin Mansoor Other [employer] Other Start: 11-01-2022 Telephone encounter Justin Mansoor [facility] Start: 10-31-2022 End: 10-31-2022 ambulatory Justin Mansoor Other [employer] Other Start: 10-31-2022 Encounter by [employer] Justin Mansoor [facility] Start: 10-26-2022 End: 10-26-2022 ambulatory Justin Mansoor Other [employer] Other Start: 10-26-2022 Encounter by [employer] Justin Mansoor [facility] Start: 10-21-2022 End: 10-21-2022 ambulatory Justin Mansoor Other [employer] Other Start: 10-21-2022 Encounter by [employer] Justin Mansoor [facility] Start: 10-12-2022 End: 10-12-2022 ambulatory Justin Mansoor Other [employer] Other Start: 10-12-2022 Office outpatient vi sit 15 minutes Justin Mansoor [facility] Start: 10-10-2022 End: 10-10-2022 ambulatory William Payne Other [employer] Other Start: 10-10-2022 Telephone encounter William Payne [facility] Start: 10-06-2022 End: 10-06-2022 ambulatory William Payne Facility:[facility] Start: 10-06-2022 End: 10-06-2022 ambulatory DO Justin M. Mansoor Work Phone: [facility] Work Phone: Start: 10-06-2022 End: 10-06-2022 Patient encounter procedure DO Justin Mansoor Work Phone: [facility] Start: 10-05-2022 End: 10-05-2022 ambulatory William Payne Facility:[facility] Start: 10-05-2022 End: 10-05-2022 ambulatory DO Justin Mottagles Work Phone: [facility] Work Phone: Start: 10-05-2022 End: 10-05-2022 Patient encounter procedure DO Justin Mansoor Work Phone: [facility] [address] Work Phone: Start: 09-30-2022 End: 09-30-2022 ambulatory Justin Mansoor Other [employer] Other Start: 09-30-2022 Encounter by [employer] Justin Mansoor [facility] Start: 09-29-2022 End: 09-29-2022 ambulatory William Jazzaleah Other [employer] Other Start: 09-29-2022 Telephone encounter William Payne [facility] [place] Start: 09-28-2022 End: 09-28-2022 ambulatory Justin Mansoor Other [employer] Other Start: 09-28-2022 Telephone encounter Justin Mansoor [facility] Start: 09-26-2022 End: 09-27-2022 ambulatory Brandon SALAM [place] [place] Start: 09-26-2022 End: 09-26-2022 Patient encounter procedure Brandon SALAM [facility] Start: 09-19-2022 End: 09-19-2022 ambulatory Justin Mansoor Other [employer] Other Start: 09-19-2022 Encounter by [employer] Justin Mansoor [facility] Start: 09-14-2022 End: 09-14-2022 ambulatory Justin Mansoor Other [employer] Other Start: 09-14-2022 Office outpatient vi sit 25 minutes Justin Mansoor [facility] Start: 09-14-2022 Telephone encounter Justin Mansoor [facility] Start: 08-24-2022 End: 08-24-2022 ambulatory Justin Mansoor Other [employer] Other Start: 08-24-2022 Encounter by [employer] Justin Mansoor [facility] Start: 08-24-2022 Telephone encounter Justin Mansoor [facility] Start: 08-23-2022 End: 08-23-2022 ambulatory Justin Mansoor Other [employer] Other Start: 08-23-2022 Encounter by [employer] link Justin Mansoor [facility] Start: 08-17-2022 End: 08-17-2022 ambulatory Justin Mansoor Other [employer] Other Start: 08-17-2022 Office outpatient vi sit 15 minutes Justin Mansoor [facility] Start: 08-16-2022 End: 08-16-2022 ambulatory Justin Mansoor Other [employer] Other Start: 08-16-2022 Encounter by [employer] link Justin Mansoor [facility] Start: 08-10-2022 End: 08-10-2022 ambulatory Justin Mansoor Other [employer] Other Start: 08-10-2022 Encounter by [employer] Justin Mansoor [facility] Start: 08-05-2022 End: 08-06-2022 ambulatory Román Dominguez Facility:[facility] Start: 08-05-2022 End: 08-05-2022 Patient encounter procedure Román Dominguez [facility] [place] Start: 08-02-2022 ambulatory Román Dominguez Facilit y:[facility] [place] Start: 07-29-2022 End: 07-30-2022 ambulatory Olena Resendez [place] [place] Start: 07-29-2022 End: 07-29-2022 Patient encounter procedure JUSTIN M MANSOOR [facility] Start: 07-27-2022 End: 07-28-2022 ambulatory Olena Resendez Facility:[facility] Start: 07-27-2022 End: 07-27-2022 Patient encounter procedure Olena David Mal [facility] Start: 07-22-2022 End: 07-22-2022 ambulatory Justin Mansoor Other [employer] Other Start: 07-22-2022 Telephone encounter Justin Mansoor [facility] Start: 07-19-2022 End: 07-19-2022 ambulatory Justin Mansoor Other [employer] Other Start: 07-19-2022 Office outpatient vi sit 25 minutes Justin Mansoor [facility] Start: 07-06-2022 End: 07-06-2022 ambulatory Justin Mansoor Other [employer] Other Start: 07-06-2022 Encounter by juan Duran [facility] Start: 07-06-2022 Telephone encounter Justin Mansoor [facility] Start: 07-02-2022 End: 07-03-2022 ambulatory JUSTIN M MANSOOR [place] [place] Start: 07-02-2022 End: 07-02-2022 Patient encounter procedure JUSTIN Beranrd MANSOOR [facility] Start: 06-27-2022 End: 06-27-2022 ambulatory Justin Mansoor Other [employer] Other Start: 06-27-2022 Telephone encounter Justin Mansoor [facility] Start: 06-24-2022 End: 06-24-2022 ambulatory Jsutin Mansoor Other [employer] Other Start: 06-24-2022 Encounter by [employer] Justin Mansoor [facility] Start: 06-20-2022 End: 06-20-2022 ambulatory Justin Mansoor Other [employer] Other Start: 06-20-2022 Telephone encounter Justin Mansoor [facility] Start: 06-14-2022 Encounter by [employer] Justin Mansoor [facility] Start: 06-14-2022 Telephone encounter Justin Mansoor [facility] Start: 06-14-2022 End: 06-14-2022 ambulatory Justin M. Mansoor [employer] [facility] Start: 06-13-2022 End: 06-13-2022 ambulatory Justin Mansoor Other [employer] Other Start: 06-13-2022 Telephone encounter Justin Mansoor [facility] Start: 06-06-2022 End: 06-06-2022 ambulatory Justin Mansoor Other [employer] Other Start: 06-06-2022 Office outpatient vi sit 25 minutes Justin Mansoor [facility] Start: 05-24-2022 End: 05-24-2022 ambulatory Justin Mansoor Other [employer] Other Start: 05-24-2022 Encounter by compute r link Justin Mansoor [facility] Start: 05-16-2022 End: 05-16-2022 ambulatory Justin Mansoor Other [employer] Other Start: 05-16-2022 Telephone encounter Justin Mansoor [facility] Start: 05-09-2022 End: 05-09-2022 ambulatory Justin Mansoor Other [employer] Other Start: 05-09-2022 Encounter by Synapse r link Justin Mansoor [facility] Start: 04-23-2022 End: 04-23-2022 ambulatory Justin Mansoor Other [employer] Other Start: 04-23-2022 Encounter by Synapse r link Justin Mansoor [facility] Start: 04-21-2022 End: 04-21-2022 ambulatory Justin Mansoor Other [employer] Other Start: 04-21-2022 Encounter by Synapse r link Justin Mansoor [facility] Start: 04-21-2022 Office outpatient vi sit 15 minutes Justin Mansoor [facility] Start: 04-03-2022 End: 04-03-2022 ambulatory Justin Mansoor Other [employer] [facility] Start: 04-03-2022 Encounter by Synapse r link Justin Mansoor [facility] Start: 03-24-2022 End: 03-24-2022 ambulatory Justin Mansoor Other [employer] Other Start: 03-24-2022 Telephone encounter Justin Mansoor [facility] Start: 03-23-2022 End: 03-23-2022 Emergency department patient visit Rodney Johnson [place] [place]: 03-23-2022 End: 03-23-2022 Emergency department patient visit Rodney Johnson [facility] Start: 03-07-2022 End: 03-07-2022 ambulatory Justin Mansoor Other [employer] [facility] Start: 03-07-2022 Encounter by Synapse r link Justin Mansoor [facility] Start: 02-10-2022 End: 02-10-2022 ambulatory Justin Mansoor Other [employer] [facility] Start: 02-10-2022 Encounter by Synapse r link Justin Mansoor [facility] Start: 01-24-2022 End: 01-24-2022 ambulatory Justin Mansoor Other [employer] [facility] Start: 01-24-2022 Nursing evaluation o f patient and report Justin Mansoor [facility] Start: 01-18-2022 End: 01-18-2022 ambulatory Justin Mansoro Other [employer] [facility] Start: 01-18-2022 Encounter by Synapse r link Justin Mansoor [facility] Start: 01-18-2022 Telephone encounter Justin Amnsoor [facility] Start: 01-12-2022 End: 01-12-2022 ambulatory Justin Mansoor Other [employer] [facility] Start: 01-12-2022 Telephone encounter Justin Mansoor [facility] Start: 01-06-2022 End: 01-06-2022 ambulatory Justin Mansoor Other [employer] [facility] Start: 01-06-2022 Office outpatient vi sit 15 minutes Justin Mansoor [facility] Start: 01-06-2022 Telephone encounter Justin Mansoor [facility] Start: 12-14-2021 End: 12-14-2021 ambulatory Justin Mansoor Other [employer] Other Start: 12-14-2021 Encounter by compute r link Justin Mansoor [facility] Start: 12-02-2021 End: 12-02-2021 ambulatory Justin Mansoor Other [employer] [facility] Start: 12-02-2021 Office outpatient vi sit 15 minutes Justin Mansoor [facility] Start: 11-22-2021 End: 11-22-2021 ambulatory Justin Mansoor Other [employer] [facility] Start: 11-22-2021 Telephone encounter Justin Mansoor [facility] Start: 11-17-2021 End: 11-17-2021 ambulatory Justin Mansoor Other [employer] [facility] Start: 11-17-2021 Telephone encounter Justin Mansoor [facility] Start: 11-16-2021 End: 11-16-2021 ambulatory Justin Mansoor Other [employer] [facility] Start: 11-16-2021 Telephone encounter Justin Mansoor [facility] Start: 11-05-2021 End: 11-05-2021 ambulatory Justin Mansoor Other [employer] [facility] Start: 11-05-2021 Office outpatient vi sit 15 minutes Justin Mansoor [facility] Start: 10-22-2021 End: 10-22-2021 ambulatory Justin Mansoor Other [employer] [facility] Start: 10-22-2021 Encounter by compute r link Justin Mansoor [facility] Start: 10-05-2021 End: 10-05-2021 ambulatory Justin Mansoor Other [employer] [facility] Start: 10-05-2021 Office outpatient vi sit 15 minutes Justin Mansoor [facility] Start: 09-27-2021 End: 09-27-2021 ambulatory Justin Mansoor Other [employer] [facility] Start: 09-27-2021 Encounter by Synapse r link Justin Mansoor [facility] Start: 09-01-2021 End: 09-01-2021 ambulatory Justin Mansoor Other [employer] [facility] Start: 09-01-2021 Encounter by Synapse r link Justin Mansoor [facility] Start: 08-23-2021 End: 08-23-2021 ambulatory Johanadavid Duran Other [employer] [facility] Start: 08-23-2021 Telephone encounter Johanadavid [place] Start: 08-18-2021 End: 08-18-2021 ambulatory Justin Mansoor Other [employer] Other Start: 08-18-2021 Telephone encounter Justin Mansoor [facility] Start: 08-12-2021 End: 11-22-2021 Recurring Roma HAWKINS [facility] Start: 08-12-2021 End: 08-12-2021 Patient encounter procedure Brandon DAMON [facility] Start: 08-05-2021 End: 08-05-2021 ambulatory Justin Mansoor Other [employer] [facility] Start: 08-05-2021 Encounter by compute r link Justin Mansoor [facility] Start: 06-21-2021 End: 06-21-2021 ambulatory Justin Mansoor Other [employer] [facility] Start: 06-21-2021 Telephone encounter Justin Mansoor [facility] Start: 06-08-2021 End: 06-08-2021 ambulatory Justin Mansoor Other [employer] [facility] Start: 06-08-2021 Office outpatient vi sit 15 minutes Justin Mansoor [facility] Start: 02-26-2021 End: 02-26-2021 ambulatory Justin Mansoor Other [employer] [facility] Start: 02-26-2021 Nursing evaluation o f patient and report Justin Mansoor [facility] Start: 02-26-2021 Telephone encounter Justin Mansoor [facility] Procedures Date Procedure Procedure Detail Performing Clinician Start: 05-23-2023 Urnls dip stick/tablet rgnt non-auto w/o micrscp Joce Ariel DO Work Phone: Start: 10-06-2022 Radiography of thoracic spine DO Justin Ru ggles Work Phone: Start: 10-05-2022 Plain X-ray of right shoulder DO Justin Ru ggles Work Phone: Start: 10-05-2022 X-ray of cervical spine DO Justin Mansoor Work Phone: Start: 09-26-2022 Colonoscopy Brandon SALAM Start: 09-26-2022 Esophagogastroduodenoscopy and closure of duodenal fistula Roma HAWKINS None (qualifier value) Roma HAWKINS Plan of Treatment Date Care Activity Detail Author Start: 06-06-2023 End: 06-06-2023 Patient encounter procedure 06/06/2023 8:30 AM EST Routine [facility] [address] [place] [address] Joce George, DO [address] [place] [address] [facility] Immunizations Immunization Date Immunization Notes Care Provider Fa francesco 01-24-2022 influenza virus vaccine, unspecified formulation Olena Resendez [facility] 01-24-2022 influenza, injectable, quadrivalent, contains preservative Justin Mansoor Other [employer] [facility] [employer] Other 02-26-2021 influenza virus vaccine, unspecified formulation Olena Courtneymetz [facility] 02-26-2021 influenza, injectable, quadrivalent, contains preservative Justin Mansoor Other [employer] Other 02-15-2021 influenza virus vaccine, unspecified formulation Roma HAWKINS [facility] 02-11-2020 influenza virus vaccine, unspecified formulation Olena Mal [facility] 02-11-2020 influenza, injectable, quadrivalent, contains preservative Justin Mansoor Other [employer] Other 01-22-2019 influenza, injectable, quadrivalent, contains preservative Justin Mansoor Other [employer] Other 01-22-2019 influenza virus vaccine, unspecified formulation Olena Mal [facility] 12-08-2011 meningococcal ACWY vaccine, unspecified formulation Olena Mal [facility] 12-08-2011 tetanus toxoid, reduced diphtheria toxoid, and acellular pertussis vaccine, adsorbed Olena Mal [facility] 09-08-1998 DTaP, unspecified formulation Olena Mal [facility] 09-08-1998 measles, mumps and rubella virus vaccine Olena Mal [facility] 08-17-1994 measles, mumps and rubella virus vaccine Olena Mal [facility] 1993 hepatitis B vaccine, pediatric or pediatric/adolescen t dosage Olena Mal [facility] 1993 Hib, unspecified formulation Olena Mal [facility] 1993 Hib, unspecified formulation Olena Mal [facility] 1993 hepatitis B vaccine, pediatric or pediatric/adolescen t dosage Olena Mal [facility] 1993 Hib, unspecified formulation Olena Mal [facility] 1993 hepatitis B vaccine, pediatric or pediatric/adolescen t dosage Olena Mal [facility] NEGATED: Highlighted row has not occurred! 3 SARS-CoV-2 mRNA (tostevenammariceln 5y-11y) vaccine Román Dominguez [facility] [place] NEGATED: Highlighted row has not occurred! 9 influenza, injectable, quadrivalent, contains preservative Patient Objection Justin Mansoor Other [employer] Other NEGATED: Highlighted row has not occurred! 9 influenza, injectable, quadrivalent, contains preservative Patient Objection Justin Mansoor Other [employer] Other NEGATED: Highlighted row has not occurred! 8 influenza, injectable, quadrivalent, contains preservative Patient Objection Justin Mansoor Other [employer] Other NEGATED: Highlighted row has not occurred! 8 influenza, injectable, quadrivalent, contains preservative Patient Objection Justin Mansoor Other [employer] Other NEGATED: Highlighted row has not occurred! 8 influenza, injectable, quadrivalent, contains preservative Patient Objection Justin Mansoor Other [employer] Other Payers Date Payer Category Payer Private Health Insurance [facility] [id number] 2023-Present [address] [address] [place] [address] [id number] 2023 Private Health Insurance [id number] 2022 Unknown [id number] 2022 Self-pay [id number] 2022 Blue [employer] Blue Shield [id number] 2022 Unknown [id number] 1993 Unknown [id number] 2.16.840.1.066962.3.579.2. 727 1993 Unknown [id number] 2.16.840.1.015690.3.579.2. 727 1993 Unknown [id number] 2.16.840.1.490731.3.579.2. 727 1993 Unknown [id number] 2.16.840.1.567953.3.579.2. 727 1993 Unknown [id number] 2.16.840.1.065751.3.579.2. 727 1993 Unknown [id number] 2.16.840.1.786434.3.579.2. 727 1993 Unknown [id number] 2.16.840.1.458877.3.579.2. 727 1993 Unknown [id number] 2.16.840.1.790461.3.579.2. 7 1993 Unknown [id number] 2.16.840.1.511690.3.579.2. 727 1993 Unknown [id number] 2.16.840.1.297733.3.579.2. 727 1993 Unknown [id number] 2.16.840.1.916036.3.579.2. 1259 1993 Unknown [id number] 2.16.840.1.561921.3.579.2. 9 1993 Unknown [id number] 2.16.840.1.036111.3.579.2. 1259 1993 Unknown [id number] 2.16.840.1.563580.3.579.2. 1259 1993 Unknown [id number] 2.16.840.1.716176.3.579.2. 1259 1993 Unknown [id number] 2.16.840.1.697652.3.579.2. 1259 Medicaid [employer] [id number] Unknown [facility] [id number] Unknown [id number] 2.16.840.1.016843.3.579.2. 531 Unknown [id number] 2.16.840.1.275911.3.579.2. 531 Unknown [id number] 2.16.840.1.492479.3.579.2. 531 Unknown [id number] 2.16.840.1.644461.3.579.2. 531 Social History Date Type Detail Facility Start: 08-12-2021 End: 11-09-2022 Tobacco smoking status Heavy tobacco smoker (finding) [facility] [employer] Other Comment on above: Quit 2 yrs ago Tobacco smoking status Never [facility] Comment on above: Quit 2 yrs ago Start: 02-17-2023 Sex Assigned At Female N [facility] [employer] Other Start: 1995 Sex Assigned At Female F [facility] Start: 04-19-2023 [facility] History of tobacco use Cigarette Smoker [facility] Start: 02-17-2023 End: 04-19-2023 Cigarettes smoked current (pack per day) - Reported 0.3 [facility] Start: 05-23-2023 Alcohol intake Current drinke r of alcohol (finding) [facility] How often to you hav e a drink containing alcohol? Never [facility] How many standard drinks containing alcohol do you have on a typical day? 1 or 2 [facility] Start: 02-17-2023 Tobacco Comment 5 or less cigarettes/day [facility] Start: 10-21-2022 [facility] Start: 1995 Sex Assigned At Not on file [facility] Start: 11-15-2022 Gender identity Identifies as female gender (finding) [facility] Start: 11-15-2022 Sexual orientation Heterosexual (sanjay magdy) [facility] Medical Equipment Procedure Code Equipment Code Equipment Origin al Text Equipment Identifier Dates 1 strip by In Vi tro route in the morning. Use in the morning prior to breakfast, 1 hour after each meal for a total of 4times daily.. [id number] Start: 05-23-2023 End: 06-22-2023 1 each by In Vit ro route in the morning. Use to check FSBS four times daily. [id number] Start: 05-23-2023 End: 06-22-2023 Functional Status Date Assessment Result Facility 02-22-2023 Functional Status N/A [facility] 11-09-2022 Functional Status N/A [facility] 09-26-2022 Functional Status N/A [facility] 08-05-2022 Functional Status N/A [facility] [place] 07-27-2022 Functional Status N/A [facility] 03-23-2022 Functional Status N/A [facility] Clinical Notes 05-18-2020 to 05-23-2023 MICEHLLE Rowe - 05/23/2023 2:40 PM EST Note Date & Type Note Facility 05-23-2023 History of Presen t illness Narrative Reason for Appointment: Patient ID: Berenice Santos is a 27 y.o. female who presents for Routine Visit Patient presents today for Return OB appointment. Patient presents today for a routine obstetrics appointment. Patient is currently 32w4d with a Estimated Date of Delivery: 07/14/23. Current Medications: has a current medication list which includes the following prescription(s): abilify, alcohol prep pad, d-care glucometer, cyclobenzaprine, diclofenac, eletriptan, escitalopram, blood glucose test, lancets ultra thin, montelukast, omeprazole, ondansetron, promethazine, rizatriptan bottle selector, seroquel xr, sutab, and ubrelvy. Medical History: Active Ambulatory Problems Diagnosis Date Noted No Active Ambulatory Problems Resolved Ambulatory Problems Diagnosis Date Noted No Resolved Ambulatory Problems Past Medical History: Diagnosis Date Bulging lumbar disc Chicken pox History of degenerative disc disease Osteoarthritis Stomach ulcer Family History Problem Relation Name Age of Onset No Known Problems Brother Social History Tobacco Use Smoking status: Some Days Packs/day: .25 Types: Cigarettes Smokeless tobacco: Not on file Tobacco comments: 5 or less cigarettes/day Substance Use Topics Alcohol use: Yes Drug use: Not on file History reviewed. No pertinent surgical history. Allergies Allergen Reactions Codeine Z-Sixto [Azithromycin] Review of Systems: Review of Systems Objective OBGyn Exam Vitals: Estimated body mass index is 36.74 kg/m as calculated from the following: Height as of 02/22/21: 5' 2.5 . Weight as of this encounter: 204 lb 1.9 oz. BP: 118/78 Patient's last menstrual period was 10/07/2022. Assessment/Plan Encounter Diagnoses Name Primary? Third trimester Gestational diabetes mellitus (GDM), antepartum, gestational diabetes method of control unspecified Elevated glucose tolerance test Pt has not has 3 hour glucose, diabetic teaching and supply orders sent today. Pt states having growth US tomorrow at [facility]. Patient presents today for a routine obstetrics appointment. Patient is currently 32w4d . Patient states she is doing well but has complaints of being tired due to current . Patient has verbalizes frequent movement. labor precautions was discussed/given and patient was instructed to perform kick counts three times a day. Follow Up: Patient is to return to office in 2 week for routine OB appointment. Documented by MICHELLE Rowe on behalf of: MICHELLE Rowe documented in this encounter [facility] 04-05-2023 Evaluation note Encounter Date Diagnosis Assessment Notes Mar, Thoracic back pain (ICD-10 - M54.6) [employer] [facility] 11-08-2023 Evaluation + Plan noteExtracted from: Title:ED Note Author:Alphonso MAURICE, Dmitry Sharma te:02/22/23 Vomiting during (O 21.9: Vomiting of , unspecified) Orders: metoclopramide, 5 mg = 1 tab(s), Oral, q6hr, to use if zofran fails., X 7 day(s), # 20 tab(s), Refills(s) 0, Pharmacy: [facility], 158, cm, 02/22/23 12:17:00 EST, Height/Length Dosing, 87.3, kg, 02/22/23 12:17:00 EST, Weight Dosing ondansetron, 4 mg = 1 tab(s), Oral, q8hr, PRN Nausea/Vomiting, # 12 tab(s), Refills(s) 0, Pharmacy: [facility], 158, cm, 02/22/23 12:17:00 EST, Height/Length [...] Diff 07/27/22 * Comprehensive Metabolic Panel 07/27/22 [facility]11-08-2023 Hospital Discharge instructions Follow Up Care 02/22/2023 11:55:55 With:Joce GEORGE Address: [address] , [place] [address]- Business (1) When:02/25/2023 14:21:57 With:JUSTIN MAX Address: [facility] MIMI SILVA [address] [address]- Business (1) When:02/25/2023 14:21:48 Comments:Follow-up with your primary care provider in 3 to 5 days. If symptoms worsen, do not improve, or new symptoms arise please report back to emergency department for further evaluation. [facility]09-27-2023 Evaluation note* Encounter Date Diagnosis Assessment Notes Treatment Notes Treatment Clinical Notes Dec, Thoracic back pain (ICD-10 - M54.6) [employer] [facility] 09-15-2023 Evaluation note* Encounter Date Diagnosis Assessment Notes Treatment Notes Treatment Clinical Notes Dec, Migraine without aura and without status migrainosus, not intractable (ICD-10 - G43.009) [employer] [facility] 08-31-2023 Evaluation note* Encounter Date Diagnosis Assessment Notes Treatment Notes Treatment Clinical Notes Nov, Migraine without aura and without status migrainosus, not intractable (ICD-10 - G43.009) [employer] [facility] 08-28-2023 Evaluation note* Encounter Date Diagnosis [...] Z3A.09) Obviously continue to follow-up with OB. [employer] [facility] 08-01-2023 Evaluation note* Encounter Date Diagnosis [...] like her to discuss this with her ICU TECH prior to doing so. Patient was instructed to call should her ICU TECH be in aggrement with proceeding with trigger point injections. Additionally she will clarify what pain treatment measures including OTC treatments are acceptable to use during her . Anatomy of spine discussed in detail with patient in regard to patients condition. Nov, Muscle pain, lumbar (ICD-10 - M79.18) Nov, Chronic pain (ICD-10 - G89.29) Nov, Other Above note writ ten by Sabrina Cao LPN, [employer]. Edited and approved by Dr. William Payne MD. [employer] [facility] 07-28-2023 Evaluation note* Encounter Date Diagnosis Assessment Notes Treatment Notes Treatment Clinical Notes Oct, Obesity (BMI 30-39.9) (ICD-10 - E66.9) Discussed with patient that we certainly could do further medication, but patient again declines today. I think this is quite reasonable. Call with any concerns or change. [employer] [facility] 07-26-2023 Hospital Discharge instructions Patient Education [...] help quitting, ask your health careprovider. Take zlut-nlc-eypskax and prescription medicines only as told by your health care provider. ?Do not use ikte-onl-xzbvuco medicines in place of prescription medicines unless [...] help quitting, ask your health careprovider. Take tpgq-uuk-xhahevs and prescription medicines only as told by your health care provider. Do not use xmfe-pmr-mwenqaj medicines in place of prescription medicines unless your health care provider approves. Limit your alcohol and caffeine intake. Keep all follow-up visits. This is important. This information is not intended to replace advice given to you by your health care provider. Make sure you discuss any questions you have with your health care provider. Document Revised: 11/12/2021 Document Reviewed: 11/12/2021 [employer] Patient Education 2022 [employer]. Follow Up Care 10/11/2022 13:11:28 With:Olena Resendez CNP Address: When:1 month [facility] [employer] [facility] 07-17-2023 Evaluation note* Encounter Date Diagnosis Assessment Notes Treatment Notes Treatment Clinical Notes Oct, Arthritis of lumbosacral spine (ICD-10 - M47.817) [employer] [facility] 07-07-2023 Evaluation note* Encounter Date Diagnosis Assessment Notes Treatment Notes Treatment Clinical Notes Oct, Arthritis of lumbosacral spine (ICD-10 - M47.817) [employer] [facility] 06-28-2023 Evaluation note* Encounter Date Diagnosis [...] pain management should she require something more. [employer] [facility] 06-15-2023 Evaluation note* Encounter Date Diagnosis Assessment Notes Treatment Notes Treatment Clinical Notes Sep, Right shoulder pain (ICD-10 - M25.511) Sep, Cervical pain (ICD-10 - M54.2) [employer] [facility] 06-14-2023 Note [id number]:[id number] 09-26-2022 Hospital Discharge instructions Patient Education 09/26/2022 14:06:02 [facility] [place] NSAIDS-Nonsteroidal Anti-Inflammatory Medications (CUSTOM) Nonsteroidal Anti-Inflammatory [...] pain neck pain Some NSAIDs are available dhpp-uqq-zjrrecc, without the need for a prescription. However, [...] than your doctor has prescribed. Follow the plxg-wmf-exeojdv labels and do not exceed the recommended [...] pharmacist. 09/26/2022 14:06:02 Colonoscopy, Care After Surgery Salam (CUSTOM) Colonoscopy Care After Surgery Please read the instructions outlined below and refer to this sheet in the next few weeks. These discharge instructions provide you with general information on caring for [facility] Your doctor may also give you specific [...] help quitting, ask your health careprovider. Take qjih-xjl-qpivoth and prescription medicines only as told by your health care provider. ?Do not use oxbq-vnl-lybmndy medicines in place of prescription medicines unless [...] help quitting, ask your health careprovider. Take bxsk-ohi-traykbv and prescription medicines only as told by your health care provider. Do not use gacf-iyu-lzdsnbb medicines in place of prescription medicines unless your health care provider approves. Limit your alcohol and caffeine intake. Keep all follow-up visits. This is important. This information is not intended to replace advice given to you by your health care provider. Make sure you discuss any questions you have with your health care provider. Document Revised: 11/12/2021 Document Reviewed: 11/12/2021 Elsevier Patient Education 2022 [employer]. 09/26/2022 14:06:02 Upper Endoscopy, Adult, Care After [...] what activities are safe for you. Take wmkd-unm-axnphei and prescription medicines only as told by [...] provider. Document Revised: 02/07/2020 Document Reviewed: 09/03/2018 [employer] Patient Education 2022 [employer]. Follow Up Care 07/27/2022 10:18:04 With:Roma HAWKINS Address: [facility] Serge Silva. [address] [place] [id number] Business (1) When: Unknown Comments:Dr Hawkins's office will call you to schedule follow up appointment [facility]06-12-2023 Evaluation + Plan noteExtracted from: Title:ANES Pre-operative Note - Endo Author:Sam Sandoval Jr., DO Date:09/26/22 Plan [place] [employer] (ASA) physical status classification: Class II. Anesthetic Preoperative Plan: Anesthesia General, and -TIVA. Future Scheduled Tests Laboratory* CBC w/ Auto Diff 07/27/22 * Comprehensive Metabolic Panel 07/27/22 [facility]05-31-2023 Evaluation note* Encounter Date Diagnosis Assessment Notes [...] August, BMI 30.0-30.9,adult (ICD-10 - Z68.30) DDM [place] -eRx sent. We will proceed with the third month and see patient back in 4 weeks for recheck. [facility] 05-31-2023 Evaluation note* Encounter Date Diagnosis [...] August, BMI 30.0-30.9,adult (ICD-10 - Z68.30) DDM [place] -eRx sent. We will proceed with the third month and see patient back in 4 weeks for recheck. August, Obesity (BMI 30-39.9) (ICD-10 - E66.9) [facility] 05-10-2023 Evaluation note* Encounter Date Diagnosis Assessment Notes Treatment Notes Treatment Clinical Notes August, Degenerative disc disease, lumbar (ICD-10 - M51.36) [facility] 05-09-2023 Evaluation note* Encounter Date Diagnosis Assessment Notes Treatment Notes Treatment Clinical Notes August, Degenerative disc disease, lumbar (ICD-10 - M51.36) [facility] 05-03-2023 Evaluation note* Encounter Date Diagnosis Assessment Notes Treatment Notes Treatment Clinical Notes August, BMI 29.0-29.9,adult (ICD-10 - Z68.29) DDM [place] E Rx sent. We will recheck again in 1 month. August, Degenerative disc disease, lumbar (ICD-10 - M51.36) DDM [place] -discussed with patient that certainly we will hold the Mobic as it made things worse. We will try 1 final anti-inflammatory . I am interested to see what pain management suggests. [facility] 05-02-2023 Evaluation note* Encounter Date Diagnosis Assessment Notes Treatment Notes Treatment Clinical Notes August, Degenerative disc disease, lumbar (ICD-10 - M51.36) [facility] 04-26-2023 Evaluation note* Encounter Date Diagnosis Assessment Notes Treatment Notes Treatment Clinical Notes Jul, Degenerative disc disease, lumbar (ICD-10 - M51.36) [facility] 04-21-2023 Hospital Discharge instructions Patient Education [...] ?Hypothyroidism. ?Polycystic ovarian syndrome (PCOS). ?Binge-eating disorder. ?[place] syndrome. Taking certain medicines, such as steroids, [...] food choices, such as grocery stores and [employer]. What are the signs or symptoms? The [...] and how much exercise you get. Take hnul-bqe-nzwpzwt and prescription medicines only as told by [...] provider. Document Revised: 11/09/2021 Document Reviewed: 11/09/2021 [employer] Patient Education 2022 [place]. [facility] General Surgery [place] 04-12-2023 Hospital Discharge instructions Patient Education 07/27/2022 [...] observation. Follow these instructions at home: Take jnle-kyv-xqdsolg and prescription medicines only as told by [...] on the cause of the bleeding. Take zrtl-wxu-fnveavt and prescription medicines only as told by [...] 03/31/2001 Document Revised: 11/14/2018 Document Reviewed: 11/14/2018 [employer] Patient Education 2020 [place]. Follow Up Care 07/11/2022 11:35:32 With:Olena Resendez CNP Address: When:1 to 2 weeks Comments:Following EGD/Colonoscopy. [facility] 04-04-2023 Evaluation note* Encounter Date Diagnosis Assessment Notes Treatment Notes Treatment Clinical Notes Jul, BMI 30.0-30.9,adult (ICD-10 - Z68.30) DDM [place] -E Rx sent. No other change today. [...] Certain to continue to follow-up with psychiatry. [facility] 03-22-2023 Evaluation note* Encounter Date Diagnosis Assessment Notes Treatment Notes Treatment Clinical Notes Jun, Degenerative disc disease, lumbar (ICD-10 - M51.36) [facility] 03-13-2023 Evaluation note* Encounter Date Diagnosis Assessment Notes Treatment Notes Treatment Clinical Notes Jun, Low back pain, unspecified back pain laterality, unspecified chronicity, unspecified whether sciatica present (ICD-10 - M54.50) [facility] 03-10-2023 Evaluation note* Encounter Date Diagnosis Assessment Notes Treatment Notes Treatment Clinical Notes Jun, Degenerative disc disease, lumbar (ICD-10 - M51.36) [facility] 02-28-2023 Evaluation note* Encounter Date Diagnosis Assessment Notes Treatment Notes Treatment Clinical Notes May, Degenerative disc disease, lumbar (ICD-10 - M51.36) [facility] 02-27-2023 Evaluation note* Encounter Date Diagnosis Assessment Notes Treatment Notes Treatment Clinical Notes May, Migraine without aura and without status migrainosus, not intractable (ICD-10 - G43.009) [facility] 02-20-2023 Evaluation note* Encounter Date Diagnosis [...] deficit (ICD-10 - R41.840) Pt to see [id number] - she is to make appt online... [facility] 02-07-2023 Evaluation note* Encounter Date Diagnosis Assessment Notes Treatment Notes Treatment Clinical Notes May, Degenerative disc disease, lumbar (ICD-10 - M51.36) May, Seasonal allergies (ICD-10 - J30.2) [facility] 01-30-2023 Evaluation note* Encounter Date Diagnosis Assessment Notes Treatment Notes Treatment Clinical Notes Apr, Anxiety (ICD-10 - F41.9) [facility] 01-23-2023 Evaluation note* Encounter Date Diagnosis Assessment Notes Treatment Notes Treatment Clinical Notes Apr, Degenerative disc disease, lumbar (ICD-10 - M51.36) [facility] 01-07-2023 Evaluation note* Encounter Date Diagnosis Assessment Notes Treatment Notes Treatment Clinical Notes Apr, Migraine without aura and without status migrainosus, not intractable (ICD-10 - G43.009) [facility] 01-05-2023 Evaluation note* Encounter Date Diagnosis [...] therapy first. She voices agreement and understanding. [facility] 01-05-2023 Evaluation note* Encounter Date Diagnosis Assessment Notes Treatment Notes Treatment Clinical Notes Apr, Degenerative disc disease, lumbar (ICD-10 - M51.36) [facility] 12-18-2022 Evaluation note* Encounter Date Diagnosis Assessment Notes Treatment Notes Treatment Clinical Notes Mar, Degenerative disc disease, lumbar (ICD-10 - M51.36) [facility] 12-07-2022 Hospital Discharge instructions Patient Education [...] treatment. Follow these instructions at home: Take iwzq-pls-ebarbkr and prescription medicines only as told by [...] 08/18/2016 Document Revised: 07/26/2019 Document Reviewed: 08/18/2016 [employer] Patient Education 2020 [place]. 03/23/2022 15:45:11 Bloody Diarrhea Bloody Diarrhea Bloody [...] oral rehydration solution (ORS). This is an cpjh-cov-lzrpdyg medicine that helps return your body to [...] drinks, and soda. ?Avoid alcohol. Eat bland, kqgg-hz-wlmjtw foods in small amounts as you are able. These foods include bananas, applesauce, rice, lean meats, toast, and crackers. Avoid spicy or fatty foods. Medicines Take wkqi-yyx-ydatvpu and prescription medicines only as told by [...] water are not available, use a hand smearer. Others in the household should wash their [...] 04/03/2006 Document Revised: 09/13/2018 Document Reviewed: 09/13/2018 [employer] Patient Education 2020 [employer] 03/23/2022 15:45:11 Rectal Bleeding, Nlxr-ya-Ulce Rectal Bleeding Rectal bleeding is when blood [...] 12/14/2011 Document Revised: 03/16/2018 Document Reviewed: 05/29/2016 [employer] Patient Education [employer]. Follow Up Care 03/23/2022 13:43:37 With:Roma HAWKINS Address: [address] [place] [address] Business (1) When:03/26/2022 15:23:44 Comments:Follow-up with Dr. Hawkins for further evaluation of your blood in your stool. With:JUSTIN MAX Address: [address], [facility] [address] [place] [address] Business (1) When:03/26/2022 15:23:32 Comments:Follow-up with your primary care provider in 3 to 5 days. If symptoms worsen, do not improve, or new symptoms arise please report back to emergency department for further evaluation. [facility]12-07-2022 Evaluation + Plan noteExtracted from: Title:ED Note Author:Dmitry Werner PA-C te:03/23/22 Blood in stool (K92.1: Torie hernandez) Orders: ondansetron, 4 mg = 1 tab(s), Oral, q8hr, PRN Nausea/Vomiting, # 12 tab(s), Refills(s) 0, Pharmacy: [facility], 157, cm, 03/23/22 13:50:00 EST, Height/Length [...] Metabolic Panel 08/12/21 * C-Reactive Protein 08/12/21 [facility]11-21-2022 Evaluation note* Encounter Date Diagnosis Assessment Notes Treatment Notes Treatment Clinical Notes Feb, Degenerative disc disease, lumbar (ICD-10 - M51.36) [facility] 10-27-2022 Evaluation note* Encounter Date Diagnosis Assessment Notes Treatment Notes Treatment Clinical Notes Jan, Degenerative disc disease, lumbar (ICD-10 - M51.36) Jan, Anxiety (ICD-10 - F41.9) Jan, Seasonal allergies (ICD-10 - J30.2) [facility] 10-10-2022 Evaluation note* Encounter Date Diagnosis Assessment Notes Treatment Notes Treatment Clinical Notes Jan, Flu vaccine need (ICD-10 - Z23) [facility] 10-04-2022 Evaluation note* Encounter Date Diagnosis Assessment Notes Treatment Notes Treatment Clinical Notes Jan, Degenerative disc disease, lumbar (ICD-10 - M51.36) [facility] 09-22-2022 Evaluation note* Encounter Date Diagnosis Assessment Notes Treatment Notes Treatment Clinical Notes Dec, Viral upper respiratory tract infection (ICD-10 - J06.9) Discussed with patient that everything was normal but her symptoms certainly are significant. Therefore we will treat and patient will call with update. Dec, Degenerative disc disease, lumbar (ICD-10 - M51.36) [facility] 08-30-2022 Evaluation note* Encounter Date Diagnosis Assessment Notes Treatment Notes Treatment Clinical Notes Nov, Degenerative disc disease, lumbar (ICD-10 - M51.36) [facility] 08-18-2022 Evaluation note* Encounter Date Diagnosis Assessment Notes Treatment Notes Treatment Clinical Notes Nov, BMI 34.0-34.9,adult (ICD-10 - Z68.34) eRX sent. OARRS completed. Pt to call with any concerns. [facility] 08-08-2022 Evaluation note* Encounter Date Diagnosis Assessment Notes Treatment Notes Treatment Clinical Notes Nov, Seasonal allergies (ICD-10 - J30.2) [facility] 08-03-2022 Evaluation note* Encounter Date Diagnosis Assessment Notes Treatment Notes Treatment Clinical Notes Nov, Degenerative disc disease, lumbar (ICD-10 - M51.36) [facility] 08-02-2022 Evaluation note* Encounter Date Diagnosis Assessment Notes Treatment Notes Treatment Clinical Notes Nov, Anxiety (ICD-10 - F41.9) [facility] 07-22-2022 Evaluation note* Encounter Date Diagnosis Assessment Notes Treatment Notes Treatment Clinical Notes Oct, BMI 35.0-35.9,adult (ICD-10 - Z68.35) E Rx sent. No other change today. We will recheck again in 1 month. Oct, Seasonal allergies (ICD-10 - J30.2) Pt to add OTC antihistamine - also do nasal steroid spray every day - 2 puffs.... [facility] 07-08-2022 Evaluation note* Encounter Date Diagnosis Assessment Notes Treatment Notes Treatment Clinical Notes Oct, Degenerative disc disease, lumbar (ICD-10 - M51.36) [facility] 06-21-2022 Evaluation note* Encounter Date Diagnosis Assessment Notes Treatment Notes Treatment Clinical Notes Sep, BMI 36.0-36.9,adult (ICD-10 - Z68.36) E Rx sent. OARRs completed. We will see patient back in 1 month. We discussed side effects and outcomes. [facility] 06-13-2022 Evaluation note* Encounter Date Diagnosis Assessment Notes Treatment Notes Treatment Clinical Notes Sep, Degenerative disc disease, lumbar (ICD-10 - M51.36) [facility] 05-18-2022 Evaluation note* Encounter Date Diagnosis Assessment Notes Treatment Notes Treatment Clinical Notes August, Degenerative disc disease, lumbar (ICD-10 - M51.36) [facility] 05-09-2022 Evaluation note* Encounter Date Diagnosis Assessment Notes Treatment Notes Treatment Clinical Notes August, Poison danilo (ICD-10 - L23.7) [facility] 05-04-2022 Evaluation note* Encounter Date Diagnosis Assessment Notes Treatment Notes Treatment Clinical Notes August, Anxiety (ICD-10 - F41.9) August, Seasonal allergies (ICD-10 - J30.2) [facility] 04-28-2022 Evaluation + Plan note Future Scheduled Tests Laboratory* Sedimentation Rate Automated 08/12/21 * CBC w/ Auto Diff 08/12/21 * Comprehensive Metabolic Panel 08/12/21 * C-Reactive Protein 08/12/21 [facility]04-21-2022 Evaluation note* Encounter Date Diagnosis Assessment Notes Treatment Notes Treatment Clinical Notes Jul, Degenerative disc disease, lumbar (ICD-10 - M51.36) [facility] 03-07-2022 Evaluation note* Encounter Date Diagnosis Assessment Notes Treatment Notes Treatment Clinical Notes Jun, Bloody stool (ICD-10 - K92.1) [facility] 02-22-2022 Evaluation note* Encounter Date Diagnosis [...] for scoping. She voices agreement and understanding. [facility] 11-12-2021 Evaluation note* Encounter Date Diagnosis Assessment Notes Treatment Notes Treatment Clinical Notes Feb, Degenerative disc disease, lumbar (ICD-10 - M51.36) [facility] 11-12-2021 Evaluation note* Encounter Date Diagnosis Assessment Notes Treatment Notes Treatment Clinical Notes Feb, Need for influenza vaccination (ICD-10 - Z23) [facility] 02-01-2021 History general Narrative - Reported* Type Description Date Medical History degenerative disc disease Medical History anxiety Medical History COVID - May 2020 [facility] 02-01-2021 History general Narrative - Reported* Type Description Date Medical History degenerative disc disease Medical History anxiety Medical History COVID - May 2020 Medical History 5 weeks gestation [facility] Other Evaluation + Plan note Future Appointments Appointment Date:08/24/2021 11:15:00 AM Scheduled Provider: Location:[facility] Appointment Type:Surgery PAT COVID Testing Future Scheduled Tests Laboratory* Sedimentation Rate Automated 08/12/21 * CBC w/ Auto Diff 08/12/21 * Comprehensive Metabolic Panel 08/12/21 * C-Reactive Protein 08/12/21 [facility] evaluation + Plan note Future Appointments Appointment Date:07/29/2022 01:00:00 PM Scheduled Provider: [facility] Appointment Type:US Abdominal/Pelvis (FT) Appointment Date:07/29/2022 06:00:00 PM Scheduled Provider: [facility] App[facility] Type:MRI Spine (FT) Appointment Date:09/26/2022 02:05:00 PM Scheduled Provider: Location:[facility] Appointment Type:Surgery FT Future Scheduled Tests Laboratory* Sedimentation Rate Automated 08/12/21 * CBC w/ Auto Diff 08/12/21 * CBC w/ Auto Diff 07/27/22 * Comprehensive Metabolic Panel 08/12/21 * Comprehensive Metabolic Panel 07/27/22 * C-Reactive Protein 08/12/21 Radiology* US Gallbladder 07/29/22 * MRI Spine Lumbar w/o Contrast 07/29/22 [facility] Evaluation + Plan note Future Appointments Appointment Date:09/26/2022 02:05:00 PM Scheduled Provider: Location:[facility] Appointment Type:Surgery FT Future Scheduled Tests Laboratory* Sedimentation Rate Automated 08/12/21 * CBC w/ Auto Diff 08/12/21 * CBC w/ Auto Diff 07/27/22 * Comprehensive Metabolic Panel 08/12/21 * Comprehensive Metabolic Panel 07/27/22 * C-Reactive Protein [facility]ments Appointment Date:11/18/2022 08:30:00 AM Scheduled Provider: Location:[facility] Appointment Type:Surgery FT Future Scheduled Tests Laboratory* CBC w/ Auto Diff 07/27/22 * Comprehensive Metabolic Panel 07/27/22 [facility] evaluation noteNo InformationNortExcela [facility] [employer] Other Evaluation noteNo assessment information available [facility] Work Phone: Evaluation noteNort [employer] Other Evaluation noteNort [employer] Other Evaluation note* Diagnosis Third trimester state, incidental Gestational diabetes mellitus (GDM), antepartum, gestational diabetes method of control unspecified Elevated glucose tolerance test Impaired glucose tolerance test documented in this encounter [facility] Narrative - [facility] [employer] Other History general Narrative - ReportedNonort[facility] [employer] Other Hospital course Narrative No data available for this section [facility] Hospital Discharge instructions No data available for this section [facility] Progress note No data available for this section [facility] Advance Directives No Advanced Directives Records Found Advance Directive Response Recorded Date/ Time Advance Directives No June 27 019 8:37am Summary Purpose Family History No Family History Records Found Additional Source Comments REASON FOR VISIT (unrecogniz ed section and content) Reason Comments Routine Visit Care Team (unrecognized sect ion and content) Team Status: Active Member Role Status Dates Justin Max DO Primary Care Provider Active Team Status: Inactive Member Role Status Dates Justin Max DO Primary Care Provider Active William Payne MD Attending Provider Active Wet End Supervisor Relationship Specialty Start Date End Date Justin Max MD [address] [place] [phone] PCP - General 12/02/22 Goals (unrecognized section and content) Goals may be documented in a n alternate section INFORMATION SOURCE (unrecogn ized section and content) DATE CREATED AUTHOR 02/26/2023 [facility] DATE CREATED AUTHOR AUTHOR'S ORGANIZ ATION 05/26/2023 [facility] DATE CREATED AUTHOR AUTHOR'S ORGANIZ ATION 06/07/2023 [facility]ists EPIC FOR RECORDS PERTAINING TO PATIENTS WHO ARE [...] BE BASED ON THE PRIMARY CLINICAL RECORDS. [facility] [facility]. provides no warranty or guarantee of the accuracy or completeness of information in this document.
== END 2023-06-22 19:55 | disposition home or self-care (01) ==
LOC: LAB 19:54
PROVIDERS: PCP Family Medicine; Visit Provider Physician Assistant
DX: Z34.93 Encounter for supervision of normal pregnancy, unspecified, third trimester (principal)
CPT/HCPCS: 87081

== ENCOUNTER 2023-06-26 14:34 | Inpatient (IN) | payer OTHER, SELFPAY ==
[2023-06-26] VITALS (16 sets, daily range): BP systolic 90–130; BP diastolic 45–63; PULSE 73–120; RESP 22
[2023-06-26 16:11] LABS: Bilirubin Urine NEGATIVE (NEGATIVE); Blood Urine NEGATIVE (NEGATIVE); Clarity Urine CLEAR (CLEAR); Color Urine LT. YELLOW (YELLOW); Glucose Urine UA NEGATIVE (NEGATIVE); Ketones Urine NEGATIVE (NEGATIVE); Leukocyte Esterase Urine TRACE (NEGATIVE); Nitrite Urine NEGATIVE (NEGATIVE); Protein Urine NEGATIVE (NEG/TRACE); Specific Gravity Urine 1.015 (1.005-1.025); Urobilinogen Urine 0.2 EU/dL (0.2-1.0)
[2023-06-26 16:16] LABS: Urine Microscopic Indicated YES
[2023-06-26 16:21] LABS: Bacteria Urine SMALL #/HPF (NONE SEEN); Cast Seen? NONE SEEN #/LPF (NONE SEEN); Crystals Seen? None Seen #/HPF (None Seen); Mucus Urine NONE SEEN (NONE SEEN); RBC Urine 0-2 #/HPF (0-2); Squamous Epithelial Cell Urine MODERATE #/LPF (NONE/RARE); Urine Culture Indicated YES; WBC Urine 0-2 #/HPF (NONE SEEN)
--- NOTE | 2023-06-26 16:48 | PC.NURSE ---
Dr George notified of pt assessment. States to watch pt and monitor intermittently and he will call back after shift change to reassess. Karyn readied for pt comfort
--- NOTE | 2023-06-26 17:03 | PC.NURSE ---
whirlpool tub 99.9, spouse sits in room with pt who takes ice chips
--- NOTE | 2023-06-26 18:52 | PC.NURSE ---
ambulates in [place], given fresh ice and offered small snack, pt states feels will vomit if eats anything- takes saltine crackers
[2023-06-26 22:16] LABS: Hemoglobin 10.5 g/dL (12.0-16.0); Mean Corpuscular HGB Conc 31.8 g/dL (29.9-35.2); Mean Corpuscular Hemoglobin 29.9 pg (26.7-34.0); Mean Platelet Volume 11.5 fL (9.5-13.5); Platelet Count 369 10^3/uL (150-450); Red Blood Count 3.51 10^6/uL (4.20-5.40); Red Cell Distribution Width 13.2 % (11.0-15.0); White Blood Count 10.6 10^3/uL (4.0-11.0)
[2023-06-26 22:27] LABS: Amphetamine Screen Urine NEGATIVE (NEGATIVE); Barbiturates Screen Urine NEGATIVE (NEGATIVE); Benzodiazepines Screen Urine NEGATIVE (NEGATIVE); Buprenorphine Screen Urine NEGATIVE (NEGATIVE); Cannabinoid Screen Urine NEGATIVE (NEGATIVE); Cocaine Screen Urine NEGATIVE (NEGATIVE); Methadone Screen Urine NEGATIVE (NEGATIVE); Methamphetamines Screen Urine NEGATIVE (NEGATIVE); Opiate Screen Urine NEGATIVE (NEGATIVE); Oxycodone Screen Urine NEGATIVE (NEGATIVE); Phencyclidine Screen Urine NEGATIVE (NEGATIVE); Tricyclic Antidepressant Urine POSITIVE (NEGATIVE)
[2023-06-26] MEDS: 0.9 % SODIUM CHLORIDE 1,000 ML 1000 ML IV (22:56)
[2023-06-26] MEDS: ROPIVACAINE HCL/PF 400 MG/200 ML PREMIX 6 MG EPIDURAL (23:21)
[2023-06-26] MEDS: 0.9 % SODIUM CHLORIDE 1,000 ML 125 ML IV (23:55)
[2023-06-27] VITALS (34 sets, daily range): BP systolic 88–129; BP diastolic 42–63; PULSE 81–157; RESP 20
[2023-06-27] MEDS: OXYTOCIN/0.9 % SODIUM CHLORIDE 10 UNITS/500 ML PLAST..BAG 6 UNIT IV (01:32)
--- NOTE | 2023-06-27 06:05 | PM.OBHP ---
OB - H&P: HPI History of Present Illness Chief complaint: OBS : 2 Date of last menstrual period: 10/07/22 Gestational age based on last menstrual period: 37 3/7WKS active labor History of Present Dating criteria: LMP confirmed by 1st trimester US care: good care Ultrasounds: normal 1st trimester US Labs Blood type: O (+) positive Rubella: nonimmune RPR/VDLR: nonreactive GBS status: negative HBsAG: negative Review of Systems ROS Status of ROS: 10 or more systems reviewed and unremarkable except as noted in history and below Meds Home Medications and Allergies Home Medications Medication Instructions Recorded Confirmed Type cyclobenzaprine 10 mg tablet 10 mg PO BID 06/26/23 06/26/23 History escitalopram oxalate 10 mg tablet 10 mg PO DAILY 06/26/23 06/26/23 History (Lexapro) insulin NPH isoph U-100 human 100 10 unit subcut QPM 06/26/23 06/26/23 History unit/mL (3 mL) subcutaneous pen (Novolin N FlexPen) insulin aspart U-100 100 unit/mL 4 unit subcut DAILY 06/26/23 06/26/23 History subcutaneous solution (Novolog U-100 Insulin aspart) ondansetron HCl 4 mg tablet 4 mg PO TID-QID PRN nausea and 06/26/23 06/26/23 History vomiting quetiapine 50 mg tablet (Seroquel) 50 mg PO DAILY 06/26/23 06/26/23 History Allergies Allergy/AdvReac Type Severity Reaction Status Date / Time azithromycin Allergy Intermediate rash Verified 06/26/23 16:47 codeine Allergy Intermediate Rash Verified 06/26/23 16:47 Exam Constitutional Vital Signs, click to edit/add: Last Vital Signs Pulse 114 H 06/27/23 05:46 Resp 22 06/26/23 22:18 BP 107/54 06/27/23 05:46 O2 Del Method Room Air 06/26/23 22:18 Results Labs Labs: Short CBC 06/26/23 Range/Units 21:50 WBC 10.6 (4.0-11.0) 10^3/uL Hgb 10.5 L (12.0-16.0) g/dL Hct 33.0 L (36.0-48.0) % Plt Count 369 (150-450) 10^3/uL Urine 06/26/23 Range/Units 14:45 Urine Color Lt. yellow (YELLOW) Urine Clarity Clear (CLEAR) Urine pH 7.0 (5.0-9.0) Ur Specific [place] 1.015 (1.005-1.025) Urine Protein Negative (NEG/TRACE) mg/dL Urine Glucose (UA) Negative (NEGATIVE) mg/dL OB - A/P Assessment and Plan (1) Intrauterine : (2) Gestational diabetes insipidus: Plan iup at 37 3/7wks, active labor, gdm a2, srom-pit augmentation, iv, routine labs, cont efm
--- NOTE | 2023-06-27 06:30 | PM.OBPRCVD ---
Procedure Intrapartal events: None Induction method: none Delivery augmentation: pitocin Delivery monitor: external FHT and external uterine Route of delivery: Episiotomy Description: none L&D Laceration Description: periurethral - 1st degree Delivery repair: Vicryl Estimated blood loss (mL): 300 Anesthesia type: Epidural Disposition: floor Delivery date: 06/27/23 Gender: female presentation: vertex Placental delivery description: Spontaneous cord description: 3 Vessels and Nuchal Cord
[2023-06-27] MEDS: IBUPROFEN 600 MG TABLET PO (06:54)
[2023-06-27] MEDS: OXYTOCIN/0.9 % SODIUM CHLORIDE 20 UNITS/1,000 ML PLAST..BAG 125 UNIT IV (07:06)
[2023-06-27] MEDS: ACETAMINOPHEN 325 MG TABLET 650 MG PO ×2 (07:30→15:59)
[2023-06-27] MEDS: ONDANSETRON PF 4 MG/2 ML VIAL IV (08:35)
[2023-06-27] MEDS: HYDROCODONE/ACET 5-325 MG TABLET 2 TAB PO ×2 (09:49→19:30)
--- NOTE | 2023-06-27 11:00 | NUTR.NU ---
0830 small to moderate size clot,fundus firm at U. Patient complaints of severe lower back pain and abdominal cramping. Dr. George aware. Orders received for Vicodin.
--- NOTE | 2023-06-27 11:50 | PC.NURSE ---
Patient had 200 cc emesis
--- NOTE | 2023-06-27 12:11 | PC.NURSE ---
[address] George regarding patients complaints of positional headache and neck pain. headache is better while laying flat.
--- NOTE | 2023-06-27 12:13 | PC.NURSE ---
[address] George regarding patients complaints of pain.
--- NOTE | 2023-06-27 12:40 | PC.NURSE ---
1230 anesthesia notified of patients complaints of positional headache, here to see patient. Orders received.
[2023-06-27] MEDS: PROMETHAZINE HCL 12.5 MG in 0.9 % SODIUM CHLORIDE 50 ML 202 MG IV (13:30)
[2023-06-27] MEDS: CAFFEINE CITRATE IV (16:04)
[2023-06-27] MEDS: WATER IV (16:04)
[2023-06-27] MEDS: DEXTROSE 5% IV (16:04)
--- NOTE | 2023-06-27 17:52 | PC.NURSE ---
assisted up to bathroom, voided without difficulty. complaints of headache while standing 5/10
--- NOTE | 2023-06-27 18:52 | PC.NURSE ---
1800 Encouraged patient to increase caffeine intake. Up to bathroom independently.
--- NOTE | 2023-06-27 18:56 | PC.NURSE ---
patient states decreased headache while ambulating.
[2023-06-28] VITALS (18 sets, daily range): BP systolic 93–124; BP diastolic 52–72; PULSE 82–97; RESP 16–18; TEMP 35.6–37; O2SAT 95–97
[2023-06-28] MEDS: HYDROCODONE/ACET 5-325 MG TABLET 2 TAB PO ×3 (03:58→15:46)
[2023-06-28 06:04] LABS: Basophils Absolute Auto 0.1 10^3/uL (0.0-0.1); Basophils Percent Auto 0.4 % (0.2-2.0); Eosinophils Absolute Auto 0.1 10^3/uL (0.0-0.7); Eosinophils Percent Auto 0.9 % (0.9-7.0); Immature Granulocytes Abs Auto 0.13 10^3/uL (0.00-0.03); Immature Granulocytes Pct Auto 0.9 % (0.0-0.5); Lymphocytes Absolute Auto 2.1 10^3/uL (1.2-3.8); Lymphocytes Percent Auto 14.8 % (20.5-60.0); Mean Corpuscular HGB Conc 30.1 g/dL (29.9-35.2); Mean Corpuscular Volume 96.3 fL (81.0-99.0); Mean Platelet Volume 10.7 fL (9.5-13.5); Monocytes Absolute Auto 1.5 10^3/uL (0.3-0.8); Monocytes Percent Auto 10.4 % (1.7-12.0); Neutrophils Absolute Auto 10.3 10^3/uL (1.4-6.5); Neutrophils Percent Auto 72.6 % (43.0-75.0); Platelet Count 360 10^3/uL (150-450); Red Blood Count 2.17 10^6/uL (4.20-5.40); Red Cell Distribution Width 13.2 % (11.0-15.0); White Blood Count 14.2 10^3/uL (4.0-11.0)
[2023-06-28 06:06] LABS: Hematocrit 20.9 % (36.0-48.0); Hemoglobin 6.3 g/dL (12.0-16.0)
--- NOTE | 2023-06-28 07:25 | PM.OBPN ---
OB - PN: Subj Subjective Patient comments: no complaints and pain well controlled [place] status: doing well Exam Constitutional Vital Signs, click to edit/add: Last Vital Signs Temp 98.4 F 06/28/23 03:59 Pulse 90 06/28/23 07:20 Resp 18 06/28/23 03:59 BP 122/59 06/28/23 07:20 O2 Del Method Room Air 06/28/23 03:59 Respiratory Common normals: normal respiratory effort and clear to auscultation bilaterally Cardio Common normals: regular rate and regular rhythm GI Common normals: Normal to inspection, nondistended, normoactive bowel sounds present Extremity Common normals: no calf tenderness Results Labs Labs: Short CBC 06/28/23 Range/Units 05:32 WBC 14.2 H (4.0-11.0) 10^3/uL Hgb 6.3 L* D (12.0-16.0) g/dL Hct 20.9 L* (36.0-48.0) % Plt Count 360 (150-450) 10^3/uL OB - PN: A/P Assessment and Plan (1) Intrauterine : (2) Gestational diabetes insipidus: (3) Acute blood loss anemia: Assessment and Plan: transfue 2u prbc, repeat cbc two hrs after Plan - Vaginal Delivery Plan: routine care, discharge home and follow up 6 weeks Time Spent with Patient Time: Total time spent is greater than 50% in coordination of care (as documented) at patient's floor/unit and/or counseling patient: Total time spent with greater than 50% in coordination of care (as documented) at patient's floor/unit and/or counseling patient: less than 15 minutes
[2023-06-28] MEDS: DOCUSATE SODIUM 100 MG CAPSULE PO (11:32)
[2023-06-28 14:42] LABS: Basophils Absolute Auto 0.1 10^3/uL (0.0-0.1); Basophils Percent Auto 0.4 % (0.2-2.0); Eosinophils Absolute Auto 0.2 10^3/uL (0.0-0.7); Hematocrit 26.8 % (36.0-48.0); Hemoglobin 8.5 g/dL (12.0-16.0); Immature Granulocytes Abs Auto 0.14 10^3/uL (0.00-0.03); Immature Granulocytes Pct Auto 0.9 % (0.0-0.5); Lymphocytes Absolute Auto 2.9 10^3/uL (1.2-3.8); Lymphocytes Percent Auto 18.2 % (20.5-60.0); Mean Corpuscular HGB Conc 31.7 g/dL (29.9-35.2); Mean Corpuscular Hemoglobin 29.5 pg (26.7-34.0); Mean Corpuscular Volume 93.1 fL (81.0-99.0); Mean Platelet Volume 10.3 fL (9.5-13.5); Monocytes Absolute Auto 1.4 10^3/uL (0.3-0.8); Monocytes Percent Auto 8.7 % (1.7-12.0); Neutrophils Absolute Auto 11.1 10^3/uL (1.4-6.5); Neutrophils Percent Auto 70.8 % (43.0-75.0); Platelet Count 399 10^3/uL (150-450); Red Blood Count 2.88 10^6/uL (4.20-5.40); Red Cell Distribution Width 14.1 % (11.0-15.0); White Blood Count 15.7 10^3/uL (4.0-11.0)
== END 2023-06-28 16:20 | disposition home or self-care (01) | DRG 806 ==
PROVIDERS: Admitting Provider Obstetrics & Gynecology; PCP Family Medicine; Visit Provider Obstetrics & Gynecology
DX: O24.429 Gestational diabetes mellitus in childbirth, unspecified control (principal); D62 Acute posthemorrhagic anemia; Z37.0 Single live birth; O69.81X0 Labor and delivery complicated by cord around neck, without compression, not applicable or unspecified; Z79.4 Long term (current) use of insulin; O99.334 Smoking (tobacco) complicating childbirth; F17.210 Nicotine dependence, cigarettes, uncomplicated; O71.82 Other specified trauma to perineum and vulva; Z3A.37 37 weeks gestation of pregnancy; O99.02 Anemia complicating childbirth; Z79.899 Other long term (current) drug therapy
CPT/HCPCS: 36415; 36430; 59050; 59410; 80307; 81001; 85025; 85027; 86850; 86900; 86901; 87086; 88307; 96374; 96375; 96376; P9016

== ENCOUNTER 2023-08-09 09:57 | Outpatient (OUT) | payer OTHER, SELFPAY | END 2023-08-09 09:58 | disposition home or self-care (01) | LOC: PST 09:57 | PROVIDERS: PCP Family Medicine; Visit Provider Obstetrics & Gynecology | DX: Z01.818 Encounter for other preprocedural examination (principal); Z30.2 Encounter for sterilization ==

== ENCOUNTER 2023-08-18 07:23 | Day surgery (SDC) | payer OTHER, SELFPAY ==
[2023-08-09 10:30] VITALS: BP 122/74; PULSE 111; TEMP 36.6; O2SAT 98; BMI 35.2
[2023-08-18] VITALS (10 sets, daily range): BP systolic 106–132; BP diastolic 48–87; PULSE 71–117; TEMP 36.2–36.3; O2SAT 94–98; BMI 35.4
--- OUTSIDE RECORDS SUMMARY | 2023-08-18 07:28 | XMS_ITS | CCD ---
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 Name Role Phone CHARLY MAXH Bernard Primary Care Physician Mansoor, Justin Unavailable Johana Duran Unavailable William Payne Unavailable Mansoor DO Justin Tammy Primary Care Provider MD William Payne Attending Provider [phone] MANSOOR, JUSTIN M Admitting Unavailable MANSOOR, JUSTIN M Attending Unavailable MANSOOR, JUSTIN M Admitting Unavailable MANSOOR, JUSTIN M Attending Unavailable MANSOOR, JUSTIN M Referring Unavailable Mal, Olena A Admitting Unavailable Mal, Olena A Attending Unavailable Mal, Olena A Referring Unavailable Hajdari, Astrit H Attending Unavailable Hajdari, Astrit H Attending Unavailable SALAM, Brandon Admitting Unavailable SALAM Brandon Attending Unavailable SALAM, Brandon Referring Unavailable Mal, Olena A Attending Unavailable Mal, Olena A Attending Unavailable Román Dominguez Attending Unavailable Mal, Olena A Referring Unavailable Román Dominguez Attending Unavailable Mal, Olena A Referring Unavailable Mansoor Justin OLIVO Primary Care Provider William Payne Attending Unavailable Mansoor, Justin M. Primary Care Unavailable William Payne Admitting Unavailable William Payne Admitting Unavailable William Payne Attending Unavailable Mansoor, Justin M. Primary Care Unavailable William Payne Admitting Unavailable William Payne Attending Unavailable Mansoor, Justin M. Primary Care Unavailable Justin Max Primary Care Unavailable Joce George Admitting Unavailable Joce George Attending Unavailable DO Justin Max Primary Care Provider Joce George Attending Provider ANJALI CABRERA Attending Unavailable JOCE GEORGE Attending Unavailable JOCE GEORGE Attending Unavailable ANJALI CABRERA Attending Unavailable JOCE GEORGE Attending Unavailable ANJALI CABRERA Attending Unavailable ARIEL, JOCE Attending Unavailable JOCE GEORGE Attending Unavailable Allergies Allergy Classification Reported Allergen(s) Allergy Type Date of Onset Reaction(s) Facility (20 sources) Azithromycin; Translations: [azithromycin] Drug Allergy 3 Eruption (morphologic abnormality), Itching (finding) [facility] (20 sources) rizatriptan Drug Allergy 3 nausea [facility] (20 sources) meloxicam Drug Allergy 3 worse joint symptoms, nauseous [facility] (20 sources) Acetaminophen / Codeine Drug Allergy rash/facial swelling [employer] Other (8 sources) Codeine; Translations: [codeine] Drug Allergy 3 Eruption of skin (disorder) [facility] (20 sources) Diclofenac Drug Allergy 3 nausea [facility] (1 source) Azithromycin; Translations: [Zithromax Z-Sixto] Drug Allergy [facility] (3 sources) Acetaminophen Drug Allergy 3 rash/facial swelling [facility] (1 source) Azithromycin Drug Allergy 3 [facility] (1 source) Codeine Drug Allergy 3 [facility] (1 source) Diclofenac Drug Allergy 3 [facility] (1 source) meloxicam Drug Allergy 3 [facility] (1 source) rizatriptan Drug Allergy 3 [facility] Medications Current Medications Medication Drug [...] / HYDROcodone bitartrate 5 mg oral tablet (6 sources) Opioid Agonist Start: 07-07-2023 take 1 tablet by mouth every eight hours Hydrocodone-Acetaminophen Active 1 TAB PO Every 8 hours 29 08July 07, 2023 Start: 10-31-2022 take 1 tablet by shelby th every twelve hours Start: 10-31-2022 take 1 tablet by shelby th every twelve hours HYDROcodone-Acetaminophen 5-325 MG 1 tablet as needed Orally every 12 hrs for 5 days Oct, Active Start: 10-21-2022 take 1 tablet by shelby th every twelve hours Start: 10-21-2022 take 1 tablet by shelby th every twelve hours HYDROcodone-Acetaminophen 5-325 MG 1 tablet as needed Orally every 12 hrs for 5 days Oct, Active ARIPiprazole 2 mg oral tablet (11 sources) Atypical Antipsychotic Start: 07-27-2023 take 1 tablet by mouth once daily Aripiprazole (Abilify) 2 mg tablet Active 2 MG PO Daily July 27, 2023 12:00am Start: 10-14-2022 aripiprazole 5 mg Tab Refills(s) [...] oral tablet (20 sources) Muscle Relaxant Start: 06-20-2023 take 10 mg by mouth twice daily Cyclobenzaprine Active 10 MG PO Twice daily 60 June 20, 2023 1:00am Start: 10-06-2022 cyclobenzaprin e (Flexeril) 10 MG tablet eletriptan 40 mg oral tablet (12 sources) Serotonin-1b and Serotonin-1d Receptor Agonist Start: 06-21-2022 take 1 tablet by mouth every two hours eletriptan (Relpax) 40 MG tablet Take 1 tablet by mouth at the onset of migraine, may repeat in 2 hrs 0 06/21/2022 Active escitalopram 20 mg oral tablet (20 sources) Serotonin Reuptake Inhibitor Start: 06-28-2023 take 20 mg by mouth once daily Escitalopram Oxalate Active 20 MG PO Daily June 28, 2023 12:00am Start: 07-05-2017 take 1 tablet by shelby every twenty-four hours Lexapro 20 MG 1 tablets Orally Once a day for 90 days Jun, Active Start: 07-05-2017 take 1 tablet by mouth once da celso Lexapro 10 mg Tab 10 mg = 1 tab(s), Oral, Daily, Refills(s) 0, Anxiety Start Date: 02/04/20 Status: Ordered Nexium (20 sources) Proton Pump Inhibitor Start: 08-12-2021 Nexium O ral, Daily, Refills(s) 0, Control of stomach acid Start Date: 08/12/21 Status: Ordered Start: 08-12-2021 Nexium Oral, D aily, Refills(s) 0 Start Date: 08/12/21 Status: Ordered Start: 10-16-2020 take 1 capsule by mo [facility] every twenty-four hours Esomeprazole Magnesium 20 MG 1 capsule Orally Once a day for 30 day(s) Oct, Active famotidine 20 mg oral tablet (4 sources) Histamine-2 Receptor Antagonist take 1 tablet by mouth every twenty-four hours Pepcid 20 MG 1 tablet at bedtime as needed Orally Once a day Active fluticasone propionate 0.05 mg/actuat metered dose nasal spray (20 sources) Corticosteroid Start: 06-28-19 24 Fluticasone Propionate Active 2 SPRAY INTRANASAL Daily June 28, 2023 12:00am take 2 spray(s) nasa l route once daily as needed Fluticasone Propionate 50 MCG/ACT 2 spra y in each nostril Nasally Once a day Not-Taking/PRN take 2 spray(s) nasal route once daily Fluticasone Propionate 50 MCG/ACT 2 spray in each nostril Nasally Once a day Not-Taking isopropyl alcohol 0.7 ml/ml medicated pad (2 sources) Start: 05-23-2023 Alcohol Swabs (Alcohol Prep Pad) 70 % pads Indications: Gestational diabetes mellitus (GDM), antepartum, gestational diabetes method of control unspecified , Elevated glucose tolerance test Apply 1 Pad topically in the morning. Use four times daily to check FSBS.. 150 each 3 05/23/2023 Active magnesium sulfate 225 MG / potassium chloride 188 MG / sodium sulfate 1479 MG Oral Tablet [Sutab] (3 sources) Start: 07-27-2022 take 1 tablet by mouth once Sutab oral tablet See Instructions, 1 EA, Refill(s) 0, Please follow instructions per packaging and physician's handout, [facility], 157, cm, 07/27/22 9:34:00 EDT, Height/Length Dosing, 76.7, kg, 07/27/22 9:34:00 EDT, Weight Dosing Start Date: 07/27/22 Status: Ordered meloxicam 15 mg oral tablet (20 sources) Nonsteroidal Anti-inflammatory Drug Start: 07-27-2022 meloxicam 15 mg Tab Refills(s) 0, Arthritis Start Date: 07/27/22 Status: Ordered methylPREDNISolone 4 mg oral tablet (3 sources) Corticosteroid Start: 08-23-2021 methylPREDNISolone 4 MG as directed Orally as directed for 6 days August, Active metoclopramide 5 mg oral tablet (1 source) Dopamine-2 Receptor Antagonist Start: 02-22-2023 End: 03-01-2023 take 1 tablet by mouth every six hours Reglan 5 mg Tab 5 mg = 1 tab(s), Oral, q6hr, to use if zofran fails., X 7 day(s), # 20 tab(s), Refills(s) 0, Pharmacy: [facility], 158, cm, 02/22/23 12:17:00 EST, Height/Length Dosing, 87.3, kg, 02/22/23 12:17:00 EST, Weight Dosing Start Date: 02/22/23 Stop Date: 03/01/23 Status: Ordered montelukast 10 mg oral tablet (20 sources) Leukotriene Receptor Antagonist Start: 02-04-2020 take 1 tablet by mouth in the morning montelukast (Singulair) 10 MG tablet Take 10 mg by mouth in the morning. 0 2022 Active omeprazole 40 mg delayed release oral capsule (20 sources) Proton Pump Inhibitor Start: 06-28-2023 take 40 mg by mouth once daily Omeprazole Active 40 MG PO Daily June 28, 2023 12:00am Start: 09-15-2022 take 1 capsule by mo [facility] once daily omeprazole 40 mg Cap-DR 40 mg = 1 cap(s), Oral, Daily, # 90 cap(s), Refills(s) 3, Pharmacy: [facility], 158, cm, 11/09/22 13:50:00 EDT, Height/Length Dosing, 76.2, kg, 11/09/22 13:50:00 EDT, Weight Dosing Start Date: 12/29/22 Status: Ordered take 1 capsule by mo [facility] once daily Omeprazole 20 MG 1 capsule 30 minutes before morning meal Orally Once a day Active ondansetron 8 mg disintegrating oral tablet (13 sources) Serotonin-3 Receptor Antagonist Start: 06-28-2023 Ondansetron Active 8 MG PO June 28, 2023 12:00am Start: 04-25-2023 End: 2023 take 1 tablet by mouth twice daily as needed for nausea ondansetron (Zofran) 4 MG tablet Indications: Second trimester Take 1 tablet (4 mg) by mouth 2 (two) times a day as needed for nausea 20 tablet 5 04/25/2023 2023 Active Start: 11-22-2022 take 1 tablet by shelby every eight hours as needed Zofran ODT 8 MG 1 tablet on the tongue and allow to dissolve as needed Orally every 8 hrs for 7 days Nov, Active phentermine hydrochloride 37.5 mg oral tablet (20 sources) Sympathomimetic Amine Anorectic Start: 07-19-2022 phentermine 37.5 mg Tab Refills(s) 0 Start Date: 07/27/22 Status: Ordered Start: 11-05-2021 take 1 tablet by shelby every twenty-four hours Phentermine HCl 37.5 MG [...] to colonoscopy as instructed by Dr. Hawkins., [facility], 157, cm, 08/12/21 12:58:00 EDT, [...] tablet by mouth every two hours rizatriptan SET STAFF FITTER (Maxalt-SET STAFF FITTER) 10 MG disintegrating tablet Dissolve 1 tablet in mouth at the onset of migraine - may repeat in 2 hrs 0 05/21/2022 Active Sutab [id number] MG tablet (2 sources) Start: 08-25-2022 Sutab 5667-936-397 MG tablet TENS Unit (20 sources) Start: 09-02-2022 Start: 09-02-2022 Start: 09-02-2022 TENS Unit Use as directed. August, Not-Taking traMADol hydrochloride 50 mg oral tablet (20 sources) Opioid Agonist Start: 07-03-2023 End: 07-25-2023 take 50 mg by mouth every eight hours Tramadol Active 50 MG PO Every 8 hours 13 02July 25, 2023 5:06pm Start: 11-08-2022 take 1 tablet by shelby th every twelve hours Start: 10-26-2022 take 1 [...] May, Active ubrogepant 100 mg oral tablet (13 sources) Start: 06-28-2023 End: 06-28-2023 take 100 mg by mouth once daily Ubrogepant Active 100 MG PO Daily June 28, 2023 11:20am Start: 06-06-2022 take 1 tablet by shelby [...] Nausea/Vomiting, # 12 tab(s), Refills(s) 0, Pharmacy: [facility], 158, cm, 02/22/23 12:17:00 EST, Height/Length Dosing, 87.3, kg, 02/22/23 12:17:00 EST, Weight Dosing Start Date: 02/22/23 Status: Ordered Start: 03-23-2022 take 1 tablet by shelby th every eight hours as needed for nausea Zofran ODT 4 mg Tab-Dis 4 mg = 1 tab(s), Oral, q8hr, PRN Nausea/Vomiting, # 12 tab(s), Refills(s) 0, Pharmacy: [facility], 157, cm, 03/23/22 13:50:00 EST, Height/Length Dosing, 80.1, kg, 03/23/22 13:50:00 EST, Weight Dosing Start Date: 03/23/22 Status: Ordered Completed/Discontinued Medications Medication Drug Class(es) Dates Sig (Normalized) Sig (Original) amoxicillin 875 mg oral tablet (2 sources) Penicillin-class Antibacterial Start: 05-30-2023 End: 06-28-2023 take 875 mg by mouth twice daily Amoxicillin Discontinued 875 MG PO Twice daily 14 May 30, 2023 1:00am June 28, 2023 11:17am amoxicillin 875 mg / clavulanate 125 mg [...] as needed Orally Once a day Not-Taking Problems Active Problems [...] bursitis 07-19-2016 Episodic Other connective tissue disease (2 sources) Myalgia, other site; Translations: [Lumbago] Episodic Other connective tissue disease (1 source) Low back pain; Translations: [Myalgia, other site] 07-19-2023 Episodic Other gastrointestinal disorders (1 source) Abnormal feces; Translations: [Other fecal abnormalities] Onset: 3 Episodic Other gastrointestinal disorders (2 sources) Hard stool 11-09-2022 Episodic Other nervous system disorders (20 sources) Disturbance of attention; Translations: [Attention and concentration deficit] Chronic Other nervous system disorders (3 sources) Attention and concentration deficit Chronic Other nervous system disorders (20 sources) Chronic pain; Translations: [Other chronic pain] 07-19-2023 Chronic Other nervous system disorders (2 sources) Other chronic pain; Translations: [Other chronic pain] Chronic Other non-traumatic joint disorders (1 source) [...] Spondylosis; intervertebral disc disorders; other back problems (17 sources) Chronic low back pain; Translations: [Cervicalgia] Onset: 3 07-19-2016 Episodic Substance-related disorders (8 sources) Smoker 03-23-2022 Chronic Comment on above: Added secondary to d ocumentation in Social History. Unclassified (1 source) Pain in right shoulder; Translations: [Pain in right shoulder] Onset: 3 Past or Other Problems Problem [...] Test Name Value Interpretation Reference Range Facility Basophils Auto (Bld) [#/Vol] on 06-28-2023 Basophils (Bld) [#/Vol] 0.1 10 3/uL 0.0-0.1 [facility] Basophils (Bld) [#/Vol] 0.1 10 3/uL 0.0-0.1 [facility] Basophils/100 WBC Auto (Bld) on 06-28-2023 Basophils/100 WBC (Bld) 0.4 % 0.2-2.0 [facility] Basophils/100 WBC (Bld) 0.4 % 0.2-2.0 [facility] Eosinophils/100 WBC Auto (Bl d)on 06-28-2023 Eosinophils/100 WBC (Bld) 1.0 % 0.9-7.0 [facility] Eosinophils/100 WBC (Bld) 0.9 % 0.9-7.0 [facility] Erythrocyte distribution wid th Auto (RBC) [Ratio]on 06-28-2023 Erythrocyte distribution width (RBC) [Ratio] 14.1 % 11.0-15.0 [facility] Erythrocyte distribution width (RBC) [Ratio] 13.2 % 11.0-15.0 [facility] Hematocrit Auto (Bld) [Volum e fraction]on 06-28-2023 Hematocrit (Bld) [Volume fraction] 26.8 % 36.0-48.0 [facility] Hematocrit (Bld) [Volume fraction] 20.9 % 36.0-48.0 [facility] Comment on above: RESULTS CALLED TO JESUS SELBY RN @BY Andree Emery at 0606 Hemoglobin [Mass/volume] in Bloodon 06-28-2023 Hemoglobin (Bld) [Mass/Vol] 8.5 g/dL 12.0-16.0 [facility] Hemoglobin (Bld) [Mass/Vol] 6.3 g/dL 12.0-16.0 [facility] Comment on above: RESULTS CALLED TO AM ROCKY SELBY RN @BY Andree Emery at 0605 Laboratory - Hematology and Cell countson 06-28-2023 Immature granulocytes/100 WBC (Bld) 0.9 % 0.0-0.5 [facility] Immature granulocytes/100 WBC (Bld) 0.9 % 0.0-0.5 [facility] Leukocytes [#/volume] correc leoncio for nucleated erythrocytes in Blood by Automated counon 06-28-2023 WBC corrected for nucl RBC Auto (Bld) [#/Vol] 15.7 10 3/uL 4.0-11.0 [facility] WBC corrected for nucl RBC Auto (Bld) [#/Vol] 14.2 10 3/uL 4.0-11.0 [facility] Lymphocytes Auto (Bld) [#/Vo l]on 06-28-2023 Lymphocytes (Bld) [#/Vol] 2.9 10 3/uL 1.2-3.8 [facility] Lymphocytes (Bld) [#/Vol] 2.1 10 3/uL 1.2-3.8 [facility] Lymphocytes/100 WBC Auto (Bl d)on 06-28-2023 Lymphocytes/100 WBC (Bld) 18.2 % 20.5-60.0 [facility] Lymphocytes/100 WBC (Bld) 14.8 % 20.5-60.0 [facility] MCH Auto (RBC) [Entitic mass ]on 06-28-2023 MCH (RBC) [Entitic mass] 29.5 pg 26.7-34.0 [facility] MCH (RBC) [Entitic mass] 29.0 pg 26.7-34.0 [facility] MCHC Auto (RBC) [Mass/Vol]on 06-28-2023 MCHC (RBC) [Mass/Vol] 31.7 g/dL 29.9-35.2 [facility] MCHC (RBC) [Mass/Vol] 30.1 g/dL 29.9-35.2 [facility] MCV Auto (RBC) [Entitic vol] on 06-28-2023 MCV (RBC) [Entitic vol] 93.1 fL 81.0-99.0 [facility] MCV (RBC) [Entitic vol] 96.3 fL 81.0-99.0 [facility] Monocytes Auto (Bld) [#/Vol] on 06-28-2023 Monocytes (Bld) [#/Vol] 1.4 10 3/uL 0.3-0.8 [facility] Monocytes (Bld) [#/Vol] 1.5 10 3/uL 0.3-0.8 [facility] Monocytes/100 WBC Auto (Bld) on 06-28-2023 Monocytes/100 WBC (Bld) 8.7 % 1.7-12.0 [facility] Monocytes/100 WBC (Bld) 10.4 % 1.7-12.0 [facility] Neutrophils Auto (Bld) [#/Vo l]on 06-28-2023 Neutrophils (Bld) [#/Vol] 11.1 10 3/uL 1.4-6.5 [facility] Neutrophils (Bld) [#/Vol] 10.3 10 3/uL 1.4-6.5 [facility] Neutrophils/100 WBC Auto (Bl d)on 06-28-2023 Neutrophils/100 WBC (Bld) 70.8 % 43.0-75.0 [facility] Neutrophils/100 WBC (Bld) 72.6 % 43.0-75.0 [facility] No Panel Informationon 06-27 Eosinophils # (Auto) 0.2 10 3/uL 0.0-0.7 [facility] Immature Granulocyte # (Auto) 0.14 10 3/uL 0.00-0.03 [facility] Eosinophils # (Auto) 0.1 10 3/uL 0.0-0.7 [facility] Immature Granulocyte # (Auto) 0.13 10 3/uL 0.00-0.03 [facility] Platelet mean volume Auto (B ld) [Entitic vol]on 06-28-2023 Platelet mean volume (Bld) [Entitic vol] 10.3 fL 9.5-13.5 [facility] Platelet mean volume (Bld) [Entitic vol] 10.7 fL 9.5-13.5 [facility] Platelets Auto (Bld) [#/Vol] on 06-28-2023 Platelets (Bld) [#/Vol] 399 10 3/uL 150-450 [facility] Platelets (Bld) [#/Vol] 360 10 3/uL 150-450 [facility] RBC Auto (Bld) [#/Vol]on RBC (Bld) [#/Vol] 2.88 10 6/uL 4.20-5.40 [facility] RBC (Bld) [#/Vol] 2.17 10 6/uL 4.20-5.40 [facility] [employer] 06-27-2023 L Specimen: Received: 06/28/23 Status: DOREEN Brown Num: [id number] Spec Type: Surgical Subm Dr: Joce George Tissues: A Placenta - 3rd Trimester (Greater than 28 weeks) (PLACENTA) Procedures: HE/3, Gross/Micro L5 Age/ Patient Sex Location Account Attending Physician Berenice Santos 28/F [facility] [id number] Joce George SPEC NUM: [id number] RECD: 06/28/23 STATUS: DOREEN BROWN NUM: [id number] DASHA: 06/27/23- SUBM DR: Joce George ENTERED: 06/28/23-[address] [facility] [address]: Dwayne,Lab SPEC TYPE: Surgical DEPT: ZAHIDA BLANCO ORDERED: HE/3, Gross/Micro L5 ORDERED: HE, Gross/Micro L5 Pathological Diagnosis Placenta removal, spontaneous vaginal delivery: -Mature third trimester placenta with three-vessel cord, likely appropriate for the gestational age (616 g) -No evidence of acute chorioamnionitis, funisitis, or villitis -Incidental at least 1 large subchorionic fibrin plaque beneath the surface with superimposed formation of Thrombo-hematoma, including minor organization change, and focally admixed PMN sedimentations -No other significant histopathological changes, except focal mild meconium staining of the membrane, and patchy minor nonspecific acute and chronic deciduitis also observed Clinical Information microcephaly, G2, P1, score?eight at one, eight at five, suspected microcephaly, routine vaginal delivery Gross Description Received in formalin labeled with the patient's name, date of and placenta per clinical history interpretation is a 18.5 x 17.5 x 2.8 cm placenta with an attached umbilical cord and attached membranes and detached membranes. The membranes have been previously partially stripped from the surface. The hameed-garza, semitranslucent membranes insert marginally over the disc. The 44.5 x 1.3 cm umbilical cord inserts paracentrally 7.2 cm from the closest disc margin and contains 3 vessels on cut section. The trimmed weight is 616 g. The surface is bluegray with prominent vasculature. The Specimen: [id number] Received: 06/28/23-1254 Status: DOREEN Brown Num: [id number] Spec Type: Surgical Subm Dr: Joce George Tissues: A Placenta - 3rd Trimester (Greater than 28 weeks) (PLACENTA) Procedures: HE/3, Gross/Micro L5 Patient: Berenice Santos [id number] (Continued) Specimen: [id number] Received: 06/28/23 (Continued) Gross Description (Continued) Signed (signature on file) Kp Chisholm MD 06/29/23 1633 Specimen: [id number] Received: 06/28/23-1254 Status: DOREEN Brown Num: [id number] Spec Type: Surgical Subm Dr: Joce George Tissues: A Placenta - 3rd Trimester (Greater than 28 weeks) (PLACENTA) Procedures: HE/3, Gross/Micro L5 Patient: Berenice Santos [id number] (Continued) Specimen: [id number] Received: 06/28/23 (Continued) Gross Description (Continued) maternal surface is garza red and appears intact with focal adherent clotted material. The cut surface is spongy, red without discrete lesion. Environmental Protection Officer sections are submitted in 2 cassettes as follows: A1 - cord and central disc A2 - membranes and marginal disc CPT Codes 08377 Specimen: [id number] Received: 06/28/23 Status: ODREEN Brown Num: [id number] Spec Type: Surgical Subm Dr: Joce George Tissues: A Placenta - 3rd Trimester (Greater than 28 weeks) (PLACENTA) Procedures: HE/3, Gross/Micro L5 Patient: Berenice Santos [id number] (Continued) Signed (signature on file) Nabil-Sharath Chisholm MD 06/29/23 1633 Normal [facility] Automated epithelial cells c ount in urine sediment (number/area)on 06-26-2023 Epithelial cells Auto (Urine sed) [#/Area] MODERATE #/LPF NONE/RARE [facility] Automated leukocytes count i n urine sediment (number/area)on 06-26-2023 WBC Auto (Urine sed) [#/Area] 0-2 #/HPF 0-2 [facility] Automated urine specific gra vity by refractometryon 06-26-2023 Specific gravity Refractometry automated (U) [Rel density] 1.015 1.005-1.025 [facility] Bilirubin Auto test strip (U ) [Mass/Vol]on 06-26-2023 Bilirubin (U) [Mass/Vol] Negative NEGATIVE [facility] Buprenorphine [Presence] in Urineon 06-26-2023 Buprenorphine Ql (U) Negative NEGATIVE [facility] Comment on above: DRUG CLASS TEST SYST EM CUT-OFF CONCENTRATIONS ARE ASFOLLOWS:AMP (Amphetamine): 500 ng/mLBAR (Barbiturates): 200 ng/mLBZO (Benzodiazepines): 150 ng/mLBUP (Buprenorphine): 10 ng/mLCOC (Cocaine): 150 ng/mLmAMP (Methamphetamine): 500 ng/mLMTD (Methadone): 200 ng/mLOPI (Opiates): 100 ng/mLOXY (Oxycodone): 100 ng/mLPCP (Phencyclidine): 25 ng/mLTHC (Cannabinoids): 50 ng/mLTCA (Trycyclic Antidepressants): 300 ng/mL Casts typing in urine sedime nt by light microscopyon 06-26-2023 Casts LM Nom (Urine sed) NONE SEEN #/LPF NONE SEEN [facility] Color Auto (U)on 06-26-2023 Color (U) LT. YELLOW YELLOW [facility] Erythrocyte distribution wid th Auto (RBC) [Ratio]on 06-26-2023 Erythrocyte distribution width (RBC) [Ratio] 13.2 % 11.0-15.0 [facility] Hematocrit Auto (Bld) [Volum e fraction]on 06-26-2023 Hematocrit (Bld) [Volume fraction] 33.0 % 36.0-48.0 [facility] Hemoglobin [Mass/volume] in Bloodon 06-26-2023 Hemoglobin (Bld) [Mass/Vol] 10.5 g/dL 12.0-16.0 [facility] Ketones Auto test strip (U) [Mass/Vol]on 06-26-2023 Ketones (U) [Mass/Vol] Negative NEGATIVE [facility] Laboratory - Drug toxicology on 06-26-2023 Amphetamines Ql (U) Negative NEGATIVE [facility] Benzodiazepines Ql (U) Negative NEGATIVE [facility] Cocaine Ql (U) Negative NEGATIVE [facility] Opiates Ql (U) Negative NEGATIVE [facility] Phencyclidine Ql (U) Negative NEGATIVE [facility] Leukocytes [#/volume] correc leoncio for nucleated erythrocytes in Blood by Automated counon 06-26-2023 WBC corrected for nucl RBC Auto (Bld) [#/Vol] 10.6 10 3/uL 4.0-11.0 [facility] MCH Auto (RBC) [Entitic mass ]on 06-26-2023 MCH (RBC) [Entitic mass] 29.9 pg 26.7-34.0 [facility] MCHC Auto (RBC) [Mass/Vol]on 06-26-2023 MCHC (RBC) [Mass/Vol] 31.8 g/dL 29.9-35.2 [facility] MCV Auto (RBC) [Entitic vol] on 06-26-2023 MCV (RBC) [Entitic vol] 94.0 fL 81.0-99.0 [facility] Methadone [Presence] in Urin e by Screen methodon 06-26-2023 Methadone Screen Ql (U) Negative NEGATIVE [facility] Mucus LM Ql (Urine sed)on Mucus Ql (Urine sed) NONE SEEN NONE SEEN [facility] No Panel Informationon 06-25 Urine Barbiturates Screen Negative NEGATIVE [facility] Urine Culture Reflexed YES [facility] Urine Marijuana (THC) Screen Negative NEGATIVE [facility] Urine Methamphetamines Screen Negative NEGATIVE [facility] Urine Microscopic Review YES [facility] Platelet mean volume Auto (B ld) [Entitic vol]on 06-26-2023 Platelet mean volume (Bld) [Entitic vol] 11.5 fL 9.5-13.5 [facility] Platelets Auto (Bld) [#/Vol] on 06-26-2023 Platelets (Bld) [#/Vol] 369 10 3/uL 150-450 [facility] Protein Auto test strip (U) [Mass/Vol]on 06-26-2023 Protein (U) [Mass/Vol] Negative NEG/TRACE [facility] RBC Auto (Bld) [#/Vol]on RBC (Bld) [#/Vol] 3.51 10 6/uL 4.20-5.40 [facility] Specific gravity Auto test s trip (U) [Rel density]on 06-26-2023 Specific gravity (U) [Rel density] CLEAR CLEAR [facility] Urine bacteria detection by automated methodon 06-26-2023 Bacteria Auto Ql (U) SMALL #/HPF NONE SEEN [facility] Urine glucose measurement by test strip (mass/volume)on 06-26-2023 Glucose Test strip (U) [Mass/Vol] Negative NEGATIVE [facility] Urine hemoglobin detection b y automated test stripon 06-26-2023 Hemoglobin Auto test strip Ql (U) Negative NEGATIVE [facility] Urine nitrite detection by a utomated test stripon 06-26-2023 Nitrite Auto test strip Ql (U) TRACE NEGATIVE [facility] Nitrite Auto test strip Ql (U) Negative NEGATIVE [facility] Urine sediment crystal ident ification by light microscopyon 06-26-2023 Crystals LM Nom (Urine sed) None Seen #/HPF None Seen [facility] Urine sediment leukocyte cou nt by microscopy (number/high power field)on 06-26-2023 WBC LM.HPF (Urine sed) [#/Area] 0-2 #/HPF NONE SEEN [facility] Urine tricyclic antidepressa nt measurementon 06-26-2023 Tricyclic antidepressants (U) [Mass/Vol] Positive NEGATIVE [facility] Urobilinogen Auto test strip (U) [Mass/Vol]on 06-26-2023 Urobilinogen Qn (U) 0.2 {Chiara'U}/dL 0.2-1.0 [facility] oxyCODONE+oxyMORphone [Prese nce] in Urine by Screen methodon 06-26-2023 oxyCODONE+oxyMORph one Screen Ql (U) Negative NEGATIVE [facility] pH Auto test strip (U)on pH (U) 7.0 [pH] 5.0-9.0 [facility] Urinalysis macro (dipstick) panel (U)on 05-23-2023 Bilirubin, UA Negative Negative - 4(70) +++ mg/dL [facility] Blood, UA Negative Negative - 50 Osmany/mcL [facility] Clarity, UA Clear [facility] Color, UA Yellow [facility] Glucose, UA Positive Negative - 1999(110) ++++ mg/dL [facility] Interpretation and review of laboratory results Abnormal [facility] Ketones, UA Negative Negative - 160(16) ++++ mg/dL [facility] Leukocytes, UA Positive Negative - 500+++ Haider/mcL [facility] Nitrite, UA Negative Negative - Positive [facility] pH, UA 7.0 5 - 9 [facility] Protein, UA Negative Negative - 1999(20) ++++ mg/dL [facility] Spec Grav, UA 1.020 1 - 1.03 [facility] Urobilinogen, UA 1.0 0.2 - 12 mg/dL [facility] Urine[facility] 02-24-2023 Bacteria identified Cx [...] Locations R1: This test was performed at: [facility], [address] [place] [address], [address]- , , Normal [facility] Comment on above: Performed By: #### 2 254511, [id number] #### [facility] [address] [place] [address] Auto Diffon 02-22-2023 Basophils/100 WBC (Bld) 0.5 % Normal 0.0-2.0 [facility] Comment on above: Order Comment: Order Added by Discern Expert. Performed By: #### 2 549651, 0252371, 8488906, 82891285, 4130687, 3842864 #### [facility] [address] [place] [address] Basophils/Leukocyt es Auto (Bld) [Pure # fraction] 0.0 E9/L Normal 0.0-0.2 [facility] Comment on above: Order Comment: Order Added by Discern Expert. Performed By: #### 2 254795, 8879736, 6090933, 12422981, 8524844, 1865843 #### [facility] [address] [place] [address] Eosinophils/100 WBC (Bld) 1.8 % Normal 0.0-8.0 [facility] Comment on above: Order Comment: Order Added by Discern Expert. Performed By: #### 2 987601, 4701427, 2837648, 75267897, 8736813, 1177973 #### [facility] [address] [place] [address] Eosinophils/Leukoc ytes Auto (Bld) [Pure # fraction] 0.2 E9/L Normal 0.0-0.5 [facility] Comment on above: Order Comment: Order Added by Discern Expert. Performed By: #### 2 027851, 1920349, 8366044, 78988908, 7407822, 0287023 #### [facility] [address] [place] [address] Lymphocytes/100 WBC (Bld) 19.0 % Normal 14.0-50.0 [facility] Comment on above: Order Comment: Order Added by Discern Expert. Performed By: #### 2 824829, 7202889, 4949003, 27505984, 7882596, 1682090 #### [facility] [address] [place] [address] Lymphocytes/Leukoc ytes Auto (Bld) [Pure # fraction] 1.6 E9/L Normal 1.0-4.0 [facility] Comment on above: Order Comment: Order Added by Discern Expert. Performed By: #### 2 959930, 6648898, 7103006, 69191730, 6712908, 8123780 #### [facility] [address] [place] [address] Monocytes/100 WBC (Bld) 7.4 % Normal 4.0-14.0 [facility] Comment on above: Order Comment: Order Added by Discern Expert. Performed By: #### 2 308659, 8249527, 8658303, 79318441, 4291730, 1109775 #### [facility] [address] [place] [address] Monocytes/Leukocyt es Auto (Bld) [Pure # fraction] 0.6 E9/L Normal 0.2-1.0 [facility] Comment on above: Order Comment: Order Added by Discern Expert. Performed By: #### 2 024709, 8355537, 7898511, 29340895, 4015296, 9823692 #### [facility] [address] [place] [address] Neutrophils/100 WBC (Bld) 71.3 % Normal 36.0-75.0 [facility] Comment on above: Order Comment: Order Added by Discern Expert. Performed By: #### 2 657655, 5694500, 4813291, 03508120, 6524523, 1320416 #### [facility] [address] [place] [address] Neutrophils/Leukoc ytes Auto (Bld) [Pure # fraction] 6.0 E9/L Normal 2.0-7.5 [facility] Comment on above: Order Comment: Order Added by Discern Expert. Performed By: #### 2 624870, 0869235, 5208041, 96275898, 7848959, 9644070 #### [facility] [address] [place] [address] BMPon 02-22-2023 Creatinine [Mass/Vol] 0.5 mg/dL Normal 0.5-1.3 [facility] Comment on above: Performed By: #### 2 115307, 2230347, 2904885, 53066724, 9317464, 4537172 ####[facility] [address] [place] [address] Urea nitrogen [Mass/Vol] 6 mg/dL Normal 5-21 [facility] Comment on above: Performed By: #### 2 906791, 6112280, 7977906, 25453751, 8888241, 6225116 ####[facility] [address] [place] [address] Urea nitrogen/Creatinin e [Mass ratio] 12 No Units Normal 10-20 [facility] Comment on above: Performed By: #### 2 039855, 8998331, 4872556, 51402364, 1600007, 0290287 ####[facility] [address] [place] [address] Anion gap [Moles/Vol] 9 mmol/L Normal 6-16 [facility] Comment on above: Performed By: #### 2 601680, 9258444, 5543733, 32617437, 2530941, 4495966 ####[facility] [address] [place] [address] Calcium [Mass/Vol] 8.8 mg/dL Low 8.9-11.1 [facility] Comment on above: Performed By: #### 2 211076, 2697894, 5864257, 46856309, 5442672, 5409946 ####[facility] [address] [place] [address] Chloride [Moles/Vol] 108 mmol/L Normal 101-111 [facility] Comment on above: Performed By: #### 2 491918, 2917402, 3418246, 51967538, 9777549, 0181302 ####[facility] [address] [place] [address] CO2 [Moles/Vol] 23 mmol/L Normal 21-31 [facility] Comment on above: Performed By: #### 2 169079, 8574699, 3907900, 35039311, 4756249, 6880846 ####[facility] [address] [place] [address] Glucose [Mass/Vol] 93 mg/dL Normal 55-199 [facility] Comment on above: Result Comment: If t his glucose result represents a fasting glucose, interpretation should refer to the following reference range: 55-99 mg/dL Performed By: #### 2 346945, 0153846, 4423589, 70996492, 9868676, 8705586 ####[facility] [address] [place] [address] Potassium [Moles/Vol] 3.4 mmol/L Low 3.5-5.3 [facility] Comment on above: Performed By: #### 2 861926, 7256898, 1551837, 06435783, 2266300, 2066203 ####[facility] [address] [place] [address] Sodium [Moles/Vol] 137 mmol/L Normal 135-145 [facility] Comment on above: Performed By: #### 2 254193, 0864142, 6559042, 38588486, 9833776, 2536949 ####[facility] [address] [place] [address] CBC w/ Auto Diffon 3 Erythrocyte distribution width (RBC) [Ratio] 12.6 % Normal 10.9-14.2 [facility] Comment on above: Performed By: #### 2 967708, 9825527, 8567645, 41749049, 9411561, 8871599 #### [facility] [address] [place] [address] Hematocrit (Bld) [Volume fraction] 35.9 % Normal 34.0-46.0 [facility] Comment on above: Performed By: #### 2 167117, 8458821, 4216119, 11969029, 1880121, 5662696 #### [facility] [address] [place] [address] Hemoglobin (Bld) [Mass/Vol] 12.0 g/dL Normal 12.0-16.0 [facility] Comment on above: Performed By: #### 2 888160, 9479768, 2935054, 60640361, 9899149, 0842714 #### [facility] [address] [place] [address] MCH (RBC) [Entitic mass] 32.7 pg Normal 27.0-34.0 [facility] Comment on above: Performed By: #### 2 074010, 6553870, 7938105, 68703534, 7174953, 8431329 #### [facility] [address] [place] [address] MCHC (RBC) [Mass/Vol] 33.4 g/dL Normal 31.4-36.0 [facility] Comment on above: Performed By: #### 2 104089, 7952549, 9611063, 36770981, 9290501, 4177707 #### [facility] [address] [place] [address] MCV (RBC) [Entitic vol] 97.8 fL Normal 80.0-100.0 [facility] Comment on above: Performed By: #### 2 545228, 1045709, 4675649, 36690907, 0064057, 4567364 #### [facility] [address] [place] [address] Platelet mean volume (Bld) [Entitic vol] 7.9 fL Normal 6.4-10.8 [facility] Comment on above: Performed By: #### 2 796829, 4941366, 9709836, 77844793, 7859939, 9659071 #### [facility] [address] [place] [address] Platelets (Bld) [#/Vol] 323.0 E9/L Normal 150.0-500.0 [facility] Comment on above: Performed By: #### 2 910081, 3364857, 2350160, 04637351, 6095928, 9091770 #### [facility] [address] [place] [address] RBC (Bld) [#/Vol] 3.7 E12/L Low 4.3-5.9 [facility] Comment on above: Performed By: #### 2 232863, 5773291, 4063702, 49361279, 4447913, 6979623 #### [facility] [address] [place] [address] WBC corrected for nucl RBC Auto (Bld) [#/Vol] 8.4 E9/L Normal 4.0-11.0 [facility] Comment on above: Performed By: #### 2 996185, 5086909, 0184547, 44072845, 9425504, 0715310 #### [facility] [address] [place] [address] CHEMISTRYOrdered By: SYSTEM SYSTEM on 02-22-2023 Albumin [...] 130 mL/min/1.73 m2 Normal >=59mL/min/1.7 3 m2 [facility] Chem S Comment on above: Interpretive Data: [...] Remisol Consent for Treatmenton Consent for Treatment [id number] Normal [facility] Discharge Instructionson Discharge Instructions [id number] Normal [facility] ED Clinical Summaryon 2022 ED Clinical Summary [place] [id number] ED Clinical Summary Person Information Name: BERENICE SANTOS/[facility] Age: 27 Years : 1995 Sex: Female Language: [place] PCP: JUSTIN MAX DO Marital Status: Visit [...] 02/22/2023 14:31:11 02/22/2023 14:31:11 02/22/2023 14:31:11 ADDRESS: [address] [place] [id number] [facility] DOC NOTES: MEDICAL INFORMATION: Prescriptions Given: New Medications [facility], [address] [place], [place] [id number], [phone] metoclopramide (Reglan 5 mg Tab) 1 Tablets By Mouth every 6 hours for 7 Days. to use if zofran fails.. Refills: 0. Medications to Continue Taking That Have Changed [facility], [address] [place], [place] [id number], [phone] START: ondansetron (Zofran ODT 4 mg Tab-Dis) [...] Follow up: With: Address: When: Joce GEORGE [facility], [address] , [place] [address] Business (1) In 3 days 02/25/2023 With: Address: When: JUSTIN MAX [address] [place] [address] [address] Business (1) In 3 days 02/25/2023 Comments: Follow-up with your primary care provider in 3 to 5 days. If symptoms worsen, do not improve, or new symptoms arise please report back to emergency department for further evaluation. 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 Is appointment next week. Reports that she [...] and Complexity of Problems Differential Diagnosis: [] [facility] Data External documents reviewed: [...] in the emergency department. Discussed follow-up with DISTRIBUTOR OPERATOR. Discussed return precautions. Follow-up with your primary [...] day(s), # 20 tab(s), Refills(s) 0, Pharmacy: [facility], 158, cm, 02/22/23 12:17:00 EST, Height/Length Dosing, 87.3, kg, 02/22/23 12:17:00 EST, Weight Dosing ondansetron, 4 mg = 1 tab(s), Oral, q8hr, PRN Nausea/Vomiting, # 12 tab(s), Refills(s) 0, Pharmacy: [facility], 158, cm, 02/22/23 12:17:00 EST, Height/Length [...] Information Joce GEORGE In 3 days 02/25/[address] , [place] [address]- Business (1) Additional Instructions: JUSTIN MAX In 3 days 02/25/2023 EST [address] [place] [address]- Business (1) Additional Instructions: Follow-up with your primary care provider in 3 to 5 days. If symptoms worsen, do not improve, (more content not included)... Normal [facility] Comment on above: Result Comment: Elec tronically Signed By: Dmitry Werner PA-C\.br\Date and Time Signed: 02/22/23 14:50 EST\.br\Electronically Co-Signed By: Rodney Johnson M.D.\.br\Date and Time Co-Signed: 02/22/23 16:24 EST ED Patient Education Noteon 02-22-2023 ED Patient Education Note Normal [facility] ED Patient Summaryon 023 ED Patient Summary (Inserted Image. Laureen ble to display) [address] [address] Patient Discharge Instructions Person Information Name: BERENICE SANTOS Age: 27 Years Arrival Date: 02/22/2023 11:54:35 Discharge Diagnosis: Vomiting during Primary Care Physician: JUSTIN MAX DO Provider Information Primary Provider: Rodney Johnson M.D. Advanced Network Contract Manager:None The exam and treatment you received in the Emergency Department were for an urgent problem and are not intended as complete care. It is important that you follow up with a doctor, nurse practitioner, or physician?s administrative assistant coordinator for ongoing care. If your symptoms become worse or you do not improve as expected and you are unable to reach your usual health care provider, you should return to the Emergency Department. We are available 24 hours a day. BERENICE SANTOS has been given the following list of patient education materials, prescriptions and follow-up instructions: Follow-up Instructions: With: Address: When: Joce GEORGE [facility], [address] [place] [address] Business (1) In 3 days 02/25/2023 With: Address: When: JUSTIN MANSOOR [address], [facility] [address] [place] [address] Business (1) In 3 days 02/25/2023 Comments: [...] opioids can be used to help relieve qtpzwpji-vq-gdbhsd pain and are often prescribed following a [...] Drug A (more content not included)... Normal [facility] HEMATOLOGYOrdered By: SYSTEM SYSTEM on 02-22-2023 [...] Bilirubin.indirect [Mass or moles/Vol] UTC Abnormal 0.1-0.9 [facility] Comment on above: Result Comment: Resu lt verified by Discern Rule. Performed result UTC (Unable to Calculate) was sent as an Alpha code due the inability to calculate a valid numeric value. Performed By: #### 2 942074, 4872656, 4155346, 24419554, 2978358, 5721090 ####[facility] [address] [place] [address] Albumin [Mass/Vol] 3.4 g/dL Normal 3.3-5.0 [facility] Comment on above: Performed By: #### 2 819111, 6730336, 6770569, 77097064, 1413847, 4167096 ####[address] [address] Albumin/Globulin (S) [Mass conc ratio] 1.1 Normal 1.1-2.2 [facility] Comment on above: Performed By: #### 2 310723, 3624833, 3864970, 46361417, 5061200, 9892423 ####[address] [address] ALP [Catalytic activity/Vol] 35 Int._Unit/L Normal 21-98 [facility] Comment on above: Performed By: #### 2 911196, 7536852, 5573740, 31081456, 0731766, 8241073 ####[address] [address] ALT No additional P-5'-P [Catalytic activity/Vol] 13 Int._Unit/L Normal 6-46 [facility] Comment on above: Performed By: #### 2 369002, 6261350, 4677023, 79104416, 8203027, 3658043 ####[address] [address] AST [Catalytic activity/Vol] 13 Int._Unit/L Normal 5-43 [facility] Comment on above: Performed By: #### 2 732691, 9219053, 2766934, 14567694, 1272851, 5932869 ####[address] [address] Bilirubin [Mass/Vol] 0.2 mg/dL Normal 0.0-1.1 [facility] Comment on above: Performed By: #### 2 255190, 6198776, 0703662, 71153592, 5019527, 5516613 ####[facility] [place] [address] Globulin (S) [Mass/Vol] 3.2 g/dL Normal 1.4-4.0 [facility] Comment on above: Performed By: #### 2 880689, 7687087, 3310460, 05209446, 7741664, 8004063 ####[facility] [address] [place] [address] Protein [Mass/Vol] 6.6 g/dL Normal 6.0-7.8 [facility] Comment on above: Performed By: #### 2 339514, 3342440, 0756111, 20079813, 4326461, 4811566 ####[facility] [address] [place] [address] Bilirubin.direct [Mass/Vol] mg/dL Normal 0.1-0.4 [facility] Comment on above: Performed By: #### 2 734377, 2966707, 6516650, 23818632, 2071670, 2236476 ####[facility] [address] [place] [address] Lipase Levelon 02-22-2023 Lipase [Catalytic activity/Vol] 25 U/L Normal 13-58 [facility] Comment on above: Performed By: #### 2 695093, 5989407, 6532980, 23998465, 4712512, 3209951 ####[facility] [address] [place] [address] UA With Cult Reflexon 2022 Bacteria LM Ql (Urine sed) TRACE Normal Trace [facility] Comment on above: Performed By: #### 2 024237, 23412849 #### [facility] [address] [place] [address] Bilirubin Ql (U) Negative Normal Negative [facility] Comment on above: Performed By: #### 2 191533, 94278205 #### [facility] [address] [place] [address] Clarity (U) CLEAR Normal Clear [facility] Comment on above: Performed By: #### 2 386293, 59158601 #### [facility] [address] [place] [address] Color (U) YELLOW Normal Yellow [facility] Comment on above: Performed By: #### 2 292378, 27662748 #### [facility] [address] [place] [address] Crystals LM Ql (Urine sed) Present Normal [facility] Comment on above: Performed By: #### 2 996624, 89019346 #### [facility] [address] [place] [address] Epithelial cells.squamous LM.HPF (Urine sed) [#/Area] 5-8 Normal 0-2 [facility] Comment on above: Performed By: #### 2 898273, 95918462 #### [facility] [address] [place] [address] Glucose Test strip (U) [Mass/Vol] Negative Normal Negative [facility] Comment on above: Performed By: #### 2 249844, 07327844 #### [facility] [address] [place] [address] Hemoglobin Ql (U) Negative Normal Negative [facility] Comment on above: Performed By: #### 2 483818, 62757995 #### [facility] [address] [place] [address] Ketones (U) [Mass/Vol] 3+ Abnormal Negative [facility] Comment on above: Performed By: #### 2 383634, 14274814 #### [facility] [address] [place] [address] Pantops.plasma/Lit hium.RBC (Bld) [Mass ratio] 0-3 Normal 0-3 [facility] Comment on above: Performed By: #### 2 074370, 85566242 #### [facility] [address] [place] [address] Mucus Ql (Urine sed) TRACE Normal [facility] Comment on above: Performed By: #### 2 793549, 55836820 #### [facility] [address] [place] [address] Nitrite Ql (U) Negative Normal Negative [facility] Comment on above: Performed By: #### 2 470984, 43991534 #### [facility] [address] [place] [address] pH (U) 7.0 [pH] Invalid Interpretation Code 5.0-9.0 [facility] Comment on above: Performed By: #### 2 472670, 45034993 #### [facility] [address] [place] [address] Protein (U) [Mass/Vol] Negative Normal Negative [facility] Comment on above: Performed By: #### 2 189989, 70613755 #### [facility] [address] [place] [address] Specific gravity (U) [Rel density] 1.015 Invalid Interpretation Code 1.005-1.030 [facility] Comment on above: Performed By: #### 2 939290, 81715234 #### [facility] [address] [place] [address] Type of Urine collection method Clean Catch Normal [facility] Comment on above: Performed By: #### 2 111027, 31908716 #### [facility] [address] [place] [address] Urobilinogen Qn (U) 0.2 {Chiara'U}/dL Normal 0.0-1.0 [facility] Comment on above: Performed By: #### 2 768224, 25352034 #### [facility] [address] [place] [address] WBC Auto Ql (U) 1+ Abnormal Negative [facility] Comment on above: Performed By: #### 2 018352, 97112144 #### [facility] [address] [place] [address] WBC LM.HPF (Urine sed) [#/Area] 0-5 Normal 0-5 [facility] Comment on above: Performed By: #### 2 782524, 75259172 #### [facility] [address] [place] [address] URINALYSISOrdered By: Hilda Yeh on 02-22-2023 Bacteria [...] Interpretation Code Negative [facility] UA Auto SS Pantops.plasma/Lit hium.RBC (Bld) [Mass ratio] 0-3 /HPF Normal [...] [facility] UA Auto SS Urobilinogen Qn (U) 0.8992190 {Chiara'U}/dL Normal 0.0 - 1.0 EU/dL [facility] UA Auto SS WBC Auto Ql (U) 1+ *ABN* (02/22/23 12:21 PM) Invalid Interpretation Code Negative [facility] UA Auto SS WBC LM.HPF (Urine sed) [#/Area] 0-5 /HPF Normal 0-5/HPF [facility] UA Auto SS eGFRon 02-22-2023 GFR/1.73 sq M.predicted among non-blacks MDRD (S/P/Bld) [Vol rate/Area] 130 mL/min/1.73 m2 Normal >=59 [facility] Comment on above: Order Comment: Order added by Discern Expert. Result Comment: Metal Die Finisher juan pablo kidney disease could be indicated at eGFR's of less than 60 mL/min/1.73m2. Kidney failure is indicated at less than 15 mL/min/1.73m2. Performed By: #### 2 756595, 6875639, 5795168, 95981288, 6143065, 6067720 ####[facility] [address] [place] [address] Reminderson 11-16-2022 Reminders - From: Olena Resendez CNP To: Shayy Dubon; Sent: 11/09/2022 13:40:58 EDT Show up: 11/09/2022 13:41:00 EDT Subject: Ambulatory Reminder Reminder/Recall Colonoscopy [place] [address] Hawkins. 10/17/[address] hawkins From: Shayy Dubon To: [facility] - Reminders/Recalls; Sent: 11/16/2022 14:37:40 EDT ! Show up: 09/15/2032 14:37:00 EDT Due Date/Time: 10/15/2032 14:37:00 EDT Normal [facility] Insurance Correspondenceon 0 11-14-2022 Insurance Correspondence [id number]:12 7 [facility] Consent for Procedure/Surger yon 11-10-2022 Consent for Procedure/Surgery [id number]:1 27 [facility] Ambulatory Visit Summaryon 0 11-09-2022 Ambulatory [...] such a (more content not included)... [facility] Gastroenterology Office/Clin ic Noteon 11-09-2022 Gastroenterology [...] Was previously evaluated in the ED at [facility] 03/23/22 and note indicated patient with blood [...] 09/26/2022 reveal (more content not included)... [facility] Comment on above: Result Comment: Elec tronically Signed By: Mal SIMPSON, Olena Henrandez\.br\Date and Time Signed: 11/09/22 14:06 EDT Patient [...] ask your health care provider. ? Take irzd-urp-cespqbk and prescription medicines only as told by your health care provider. ? Do not use iixc-fpy-edspjrv medicines in place of prescription medicines unless [...] ask your health care provider. ? Take mccv-egn-ghrqnkm and prescription medicines only as told by your health care provider. Do not use krrc-zxc-lslyzgu medicines in place of prescription medicines unless your health care provider approves. ? Limit your alcohol and caffeine intake. ? Keep all follow-up visits. This is important. This information is not intended to replace advice given to you by your health care provider. Make sure you discuss any questions you have with your health care provider. Document Revised: 11/12/2021 Document Reviewed: 11/12/2021 [employer] Patient Education ? 2022 [employer] [facility] Postoperative Documentson Postoperative Documents [id number]#1.00CD:1 27 [facility] IntraOperative Documentson 0 10-07-2022 IntraOperative Documents [id number]#1.00CD:1 27 [facility] XR thoracic spine 2Von 10-06 XR thoracic spine 2V [facility] Main [address] [address] XRay Report Signed Patient: Berenice Santos MR#: [id number] : 1995 Acct:[id number] Age/Sex: 27 / F ADM Date: 10/06/22 Loc: SOXD Room: Type: [facility] CLI Attending Dr: William Payne MD [...] PROCESS. Impression dictated by: Jairo Lopez Jr., D.OLuly10/06/2022 4:48 PM Dictation Location: [place] [address] Transcribed By: [facility] 10/06/221647 Dictated By: Jairo Lopez Jr, DO 10/06/221647 Signed By: 10/06/221647 [facility] XR cerv spine AP/LAT/FLX/EXT on 10-05-2022 XR cerv spine AP/LAT/FLX/EXT [facility] [place] [address] XRay Report Signed Patient: Berenice Santos MR#: [id number] : 1995 Acct:[id number] Age/Sex: 27 / F ADM Date: 10/05/22 Loc: XD250 Room: Type: [facility] Attending Dr: William Payne MD Copies to: [...] to muscle spasm. Impression dictated by: Troy Caanles M.D.10/05/2022 1:02 PM Dictation Location: [place] [address] Transcribed By: [facility] 10/05/22 1302 Dictated By: Troy Canales II, MD 10/05/22 1259 Signed By: 10/05/22 1302 [facility] XR shoulder RT min 2V*on XR shoulder RT min 2V* [facility] [place] [address] XRay Report Signed Patient: Berenice Santos MR#: [id number] : 1995 Acct:[id number] Age/Sex: 27 / F ADM Date: 10/05/22 Loc: XD250 Room: Type: [facility] Attending Dr: William Payne MD Copies to: [...] Troy Canales M.D.10/05/2022 1:04 PM Dictation Location: [place] [address] Transcribed By: [facility] 10/05/22 1304 Dictated By: Troy Canales II, MD 10/05/22 1302 Signed By: 10/05/22 130 [facility] [place] 09-28-2022 Consent [id number]#1.00CD:1 27 [facility] Discharge Instructionson Discharge Instructions [id number]#1.00CD:1 27 [facility] Main OR Intraoperative Recor don 09-27-2022 Main OR Intraoperative Record IntraOp Document Type FT Summary Primary Physician: Roma HAWKINS MD Finalized Date/Time: 09/27/22 14:50:44 Pt. Name: DANIELLE BERENICE David Hassan/Sex: 1995 Female Med Rec #: [id number] Physician: Roma HAWKINS MD Financial #: [id number] Pt. Type: O Room/Bed: Endo OP 05/18 [...] Schmitt RN, Ruth Gaines Role Performed Anesthesiologist Dielectric Press Operator - Primary Scrub - Primary Dielectric Press Operator Time In 09/26/22 13:25:00 09/26/22 13:25:00 09/26/22 13:25:00 Time Out 09/26/22 13:42:00 09/26/22 13:42:00 09/26/22 13:42:00 Procedure EGD AND COLONOSCOPY(.) EGD AND COLONOSCOPY(.) EGD AND COLONOSCOPY(.) Comments Dr. Noel supervising case Last Modified By: Mine RN, Darlyn Blount RN, Darlyn Blount RN, Darlyn 09/26/22 13:43:03 F 09/26/22 13:43:03 F 09/26/22 13:43:03 Entry 4 Entry 5 Case Attendee Babar Wesley MD, Maher Role Performed Staff - Other Surgeon - Primary Time In 09/26/22 13:25:00 09/26/22 13:25:00 Time Out 09/26/22 13:42:00 09/26/22 13:42:00 Procedure EGD AND COLONOSCOPY(.) EGD AND COLONOSCOPY(.) Comments help in room Last Modified By: Mine RN, Darlyn Blount RN, Darlyn 09/26/22 13:43:03 F 09/26/22 13:43:03 Perioperative Protocols [...] and tissue Entry 1 Skin Integrity Intact, Manzano, Warm, and Skin Abnormality No Dry Outcomes Met? Yes Last Modified By: Darlyn Blount RN 09/26/22 10:08:37 Post-Care Text: The patient is free from signs and symptoms of injury caused by extraneous objects Patient Positioning FT Pre-Care Text: Identifies physical alterations that require additional precautions for procedure-specific positioning, ara (more content not included)... [facility] Main OR PACU I Recordon 09-15 Main OR PACU I Record PACU Phase I Document Type FT Summary Primary Physician: Roma HAWKINS MD Finalized Date/Time: 09/27/22 09:59:55 Pt. Name: BERENICE SANTOS/Sex: 1995 Female Med Rec #: [id number] Physician: Roma HAWKINS MD Financial #: [id number] Pt. Type: O Room/Bed: Endo OP 05/18 [...] Signed By: Roseline Mcbride RN 09/27/22 09:59 [facility] Pre-Certification Formon Pre-Certification Form [id number]#1.00CD:12 7 [facility] Progress Note-Physicianon Progress Note-Physician Patient: BERENICE [...] Ambulatory Surgery Unit, and To home ). [facility] Comment on above: Result Comment: Elec tronically Signed By: Sam Noel Jr., DO.br\Date and Time Signed: 09/27/22 06:50 EDT Consent for Treatmenton 09-15 Consent for Treatment [id number]#1.00CD:12 7 [facility] Endoscopic Procedure Report - Otheron 09-26-2022 [...] Return to activities:: After 24 hours. [facility] Comment on above: Result Comment: Elec [...] 3. Normal duodenum Images Procedure images: Rec1_hd_video__T __34_212.jpg Rec_hd_video__T __06_886.jpg Rec_hd_video__T _24_247.jpg . Post-Procedure Complications: none. Estimated blood loss: [...] daily 4. Avoid NSAIDs and alcohol [facility] Comment on above: Result Comment: Elec tronically Signed By: Roma HAWKINS MD\.br\Date and Time Signed: 09/26/22 13:30 EDT Other Comment: Phyllis jo Attachment - attachment storage system not supported [id number] Can be viewed in source systemMissing Attachment - attachment storage system not supported [id number] Can be viewed in source systemMissing Attachment - attachment storage system not supported [id number] Can be viewed in source system Main OR Preoperative Recordo n 09-26-2022 Main OR Preoperative Record Holding Area Document Type FT Summary Primary Physician: Roma HAWKINS MD Finalized Date/Time: 09/26/22 12:59:29 Pt. Name: BERENICE SANTOS/Sex: 1995 Female Med Rec #: [id number] Physician: Roma HAWKINS MD Financial #: [id number] Pt. Type: O Room/Bed: Endo OP 05/18 [...] By: Syed Chung RN 09/26/22 12:59 [facility] Monitor Recordon 09-26-2022 Monitor Record [id number]#1.00CD:1 27 [facility] Monitor Record [id number]#1.00CD:1 27 [facility] Progress Note-Physicianon Progress Note-Physician Patient: BERENICE [...] follow instructions per packaging and physician's handout, [facility], 157, cm, 07/27/22 9:34:00 EDT, Height/Length Dosing, 76.7, kg, 07/27/22 9:34:00 EDT, Weight Dosing Zofran ODT 4 mg Tab-Dis: 4 mg = 1 tab(s), Oral, q8hr, PRN Nausea/Vomiting, # 12 tab(s), Refills(s) 0, Pharmacy: [facility], 157, cm, 03/23/22 13:50:00 EST, Height/Length [...] Problems Blood in stool / SNOMED CT 9882303442 / Confirmed BMI 31.0-31.9,adult / SNOMED CT 639575289 / Confirmed Cholelithiasis / SNOMED CT 907020528 / Confirmed Chronic midline low back pain with sciatica / SNOMED CT 645544188 / Confirmed Epigastric pain / SNOMED CT 533077094 / Confirmed Family history of colonic polyps / SNOMED CT 6003018049 / Confirmed Nausea and vomiting / SNOMED CT 09674428 / Confirmed Rectal bleeding / SNOMED CT 363117410 / Confirmed Smoker / SNOMED CT 983680502 / Confirmed Added secondary to documentation in Social History. Trochanteric bursitis of left hip / SNOMED CT 08520060 / Confirmed Resolved: / SNOMED CT 398122709 Resolved: DDD (degenerative disc disease), cervical / SNOMED CT [id number] Canceled: Back pain / SNOMED CT 287023240 Canceled: Smoker / IMO [id number] Added secondary to documentation in Social History. Histories Past Medical History: Active Blood in stool (9652126488) Resolved (065824130): Onset on 04/17/2012 at 16 years. Resolved on 12/27/2012 at 17 years. DDD (degenerative disc disease), cervical ([id number]- [id number]): Resolved. Procedure history: None (724540590). 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 Cardiovascular: Regular rhythm. Plan [place] [employer] (ASA) physical status classification: Class II. Anesthetic Preoperative Plan: Anesthesia General, and -TIVA. 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 female here for cholelithiasis Referred by Olena Resendez NP Patient presented to w/ epigastric pain and N/V Denies unintentional weight loss US GB done 07/29/2022. History of Present Illness Berenice Santos is a 26-year-old female who was referred by Olena Resendez CNP, for symptomatic gallstones found on ultrasound. She was seen most recently by Ms. Courtneymetz on 07/27/2022, for evaluation of epigastric pain and bright red blood per rectum. The patient reported epigastric pain with associated nausea and vomiting that is stabbing in nature over the past 3 months from when she had seen Mal. She denies family history of Crohn's or [...] should p (more content not included)... [facility] Comment on above: Result Comment: Elec [...] food choices, such as grocery stores and [employer]. What are the signs or symptoms? The [...] have to (more content not included)... [facility] Coding Summary.on 08-04-2022 Coding Summary. CD:698913Pubc77KTh0l Ww+PG hlYWQ+YY5IWDNiM64mcOKhuE5 uH7CXURoICsxoGTQVTIpQFeZu weVyCK3exWSmJDVm IC8+JS5fWOMnOpnvmVAbt8X8n QU5A10zxi8tVIzifRC1OJGeJy Ihjxtnn4agyOk9USjgMsvpGuB t XCHwaZ26DHD3pP81Kh90oDQqu DJsc2ajqGr0YcFyGKRcZEG4pF gyLSyqy2FuBLFkL16gcZYov0M 6 NHTyhZaqeQAwUsUzzTJ8hQ3dJ Ahbxzqwq2awlsntVwb8mb63qZ Acj5Y2oVO5A5SrkaZ5WZBepPD g ObisoZATeQ3oylwoo0iltwbcW eMxCTIdYEy8HFt1TMAsuLepEy MpNJ21XGJ9EYIgomXrC8XyLCZ s jXubSkN4n9C3Py4TD2YMRmhjT 1VNTUFSWTwvdGQ+OI36ef07P7 XtUdhtVzr5ZILbIXS8cWK7iN2 n HUUsUNmpa8V6nZQ9B1DcseOjl t0bw1gbYUYvBQsaQ05uzLWre4 W1RTFfnHT8BHFvwLilNyZjmW6 3 Oyc+KHUyzAhaz1ZjQqjen9inx 8oppSp5AnwoMNNxkoSwdHixPP P6m2UuYv0lPUNrpKW2wXQ8wG0 i ZfTdHpM7NDfeY222MsShyMHzK abeB72iS3AmrFC+QIEjMci2PZ CgnKsaWG1wQ3OwWGNuxtsxxTP m vKveQS9kAHLhuqyaGRJygH4mT HQuO6x4CnFwMgR0XXzuV5BySI IbobaeKg97tQ1yZeHlAbU4KQz u E0UwlnL1ACKkdSDhZKjjKUZ8T 35mi6J9YXTzDRKwYDB8qEH1xU 1hbGlnbjogbGVmdDsgdmVydGl j DKgxGOnfR536GVTcnKmfTgEeF GluZyBEYXRlOiAgMDQvMjAvMj AyMzwvdGQ+OGWtGFL0pIqaTAL n aQXoDBoiIm4zjZzarHcgLA8cC RTpnumxTBAzyL1eZNGckIYspM nuDB2bUHCimvnbg521RcTcDNJ 0 QUWxqVHnL6AjaX1xKuMwTBJiV UOjU8FtnRSiIVukZ065EKcfNn E1HSNchwDaU5QjUAKgzTjpZfZ 0 u1M4Bo0Tq0VgfaptD2KwmNPxJ fEcWcpbBRz9I3ZnImvhbMP+PC 60UXVrCZ26NDk9HNN3iWmdTVe i EIVbJ6MseU0xJmZkEZTlUHKdE yc+PHRhYmxlIHdpZHRoPScxMD PtWzWiuDgzVQ8lBe0fNJKmZAV v tErymPGiBsDyc0trIQYeJGnaJ O2fqHjiA0UogZK6ONZji2q9Rj 77N78bK5PfjEQ+PBQbiJJ4iVT 0 nG5pTiJlWmD8UTdcV491WoFsi QDtZrxjc8nbb3pxnPg1QbQ4AY IlptYdnYcsTOF2s4IzSy28H91 s IHdpZHRoPSIxNSUiIHZhbGlnb r1jyU8ePd5+YPWafEW7oOE7lG 1uXdBvQcO8RPazG235EiWkiJW v Rlgzm3ncd7nueXc5AkMxEYQfq rErnZtjSDJ0b7IjVn44J8GohM tkj3CpMze3we16xMXxw3E5rFH 9 L0CcVDVyqdumrEJgcQcvMN8oG LMovrmfSTNizQ3yKXAkZ6o3Bk CeWzU4IVntF9XvypR4ICGdhSO g QVVrcOQFfY0nxdsuh3fmbogrN jFbFIKvZYt9YPr8EPWvnEjgHu KcJBQ2LwF3SPM9dHHkzS1tsAp n qggacX9rVcl+COT0nNKewMRBZ D9oDkemjIE+LNJzQUP2wAglBA igFYXxfA3hIMTsZ3k3MpTuAyO 1 SBgfD3SvhtA4KETexUYhERLqr SYLeP0tyxjrh0jwxnphUwNqMW VdOXh4KVw3RBZujJqsYaKhXTD 0 QmT1ZPA9mLKuaN0evEgjycudh G9wOyc+DwyuuDawFES3VQe4R6 PlSai8OVBrqMciPH2suXIqDJy u Cu9zwLiuhPhvKJ4uPUPpzvnfk 885HuIfc7wtQGIqfPQkDNtmSP G6B17db3F5GDVdPUHiGNI0lXK 4 qC5reLmeghcqfLPbtJpsfcKsz PydKTikQJpsX924NSUqdHvxOt QmTVz3X4FdMwg6UJTbeBfoTM4 n uNUfYCvaOi5rwJtmdQrcIR5lU SQvtgvyh124CmFze6ojWSJinY KbVHfvNVG5P11jz1G4FCOhJCY w MKP5hXO7fM9yaJejllzioVCnx QpfwpEelKdeXMzgYFvgL568SD FjyKkrIfPzoFq0T8DhVka5ZXO z cAbaRW5hiROmRLlrPi1bqHuts CftBP3sICQcvxbaf091XiHxg7 pkCCHsxYFfGClkSZG7K76ii3O 6 TCMmTGMbPGE6aAD1xX9xbWnac jogbGVmdDsgdmVydGljYWwtYW zgO141CDNhoNubCaOrjCruxfH g VGllGDo6M0FyZglakZZ+PC90Y CFqBL12rODieQBnl4dyeNk5Lw HdCDNiZIV7qKmtDPrmi4AtEQJ t W54qrSBnv9Y7HVRxzKwvpUTkT uTnkIM4rG8aSPuvyukac3qmni dmWdqwo2bvzv04hV72Y90zLRe p LPGePYVrHTRbFTGucIgxpz2rd G9wIi8+HXIeqSD7nXF3aU5nZD OoZeI1AXooM045FbIllLTlZjc j y6oqc5irvAv2SmT8XSHhlnGnr KejXMD5e5JvDu61E83qKHszIT FwCOYkYQNtKTZmfPdhpr4ktQ9 w Ii8+ONArkSB6xBS2jF0tVkUbU kW3FUxiO762XbFimKKiJqkjQ4 0oD7QfrOX+GNCpGwi0OWCuoWu s PX1xoSEaXUmbKj8hXMN8AwGpQ cPjDTagJ7FuOBHxablwgkhayY G7QPIrZDIlwN33Xu2yxDleXFZ w aTWGqG6ayqiib1gyblsaQcYoQ XEpKRi7LXe4KKYpeFsjQjVwGU L2OsB8PJO9dXUseE9mjGzzimg g iD2jD2BaWXQorggqKg07zZ0oG eZnEgW3QVkzKll+HSOHU9MXEL 3aMXeMH8hXIMVJBJ94VY95rXB g h2X6iVB1G3HvRGQtejjifvylj BL9UCVoMBKewU21lSOcYYqsRs 3ud6Z3s416WIUyMRFfhR89Bj3 u oRmwKLXmcIOXcY0gwcmbx3qui rdhKgHlAZCkDGq0CKw2CGHfbX myFkXyYBR6MyE3LMK9iNLaaO7 h gFsahhaqpP2fCaq+MDIvMDgvM An7CDxjgDW+OMSpCRP2lKyzVW pgTEHpxQ6gOHGlF3g5KsVkZbV 1 WEnwO0KsNIPbmipeXy71nR3wQ gTpAjR1BRroG9WjmlF9GAJfpR YeRGunWNY1P44kv5Y7KKWbRUV w PLY3qLJ2jN9wxEfxjochkECrk YxldqWkjSjhZVhzUOozD815GT TubBbgQgF5FPdnJYZqNU02AO9 8 cCNjt8K3vDV1Z7LjEMVtpqfye zmqtAO9QWWvMMOncS38bOXrUA psKk1mu6M5x495JDXpHCJquW1 7 Dt5wsYwlKBRrzMQFmU8bjejoi 9lvdrunUcAlJLWnAEx7ATm0RD FzxMkfObPqPEM2IwL7REL6gML h nE4pxJtemikrvA5fKoo+RmVtY IiyJL10NY22pGVcl8N1tNM4X4 MfLKSyhermhunjkVC5TDVfUIQ w fF64lBMeCFtoXy6tc5V7b449E ASlZYXftB76Av8ovTaqCLXuiN XRgV9inmiik7ncgfwfVuWnZTL w YSs9FVh3TYUskWhxXsAdSOD7I cL0YBH7mACnrY2gwBjoztmlcW 9wOyc+A1E0qMY9iRTqhRjybNU + CT91dq80M8CfUidyXeb7GWJsU HY6uPL8dQ9bUXJsNHdcl0P3pD J9R7EgvpYcrt2rs4loCEVrCWb g I67jrPJtk8K8HEQbyWP1EZNud ZxeBsMepS48Rgg+PGNvbGdyb3 AwZwcuv8fms8bqjHp9XiYyCBX g blYqfFccDFQ5f6LzJs50K16wL HdpZHRoPSIzMCUiIHZhbGlnbj 6vbR2dHz3+RZQnnRC0rIJ7eN0 i TrTaVdP9WFhgT079YjCnqNGeX taew6oit7bctRr2PaSfSSJrnp PzyIeoKJY8m2EwYm97J9JzkTi y w9DcGyz0ii74sMNwj1A2aDS6X 5GyBBZjwmdvxHGrgWttBR4mNX NmmloqNSRhjU3wZHVcJ6p0YwM w MzB1EJfwK8IxmpC6GCKyhNJpD UMlcWIDtM6mrlfjq5aokiouQn OzUSEvHSy3HZt5DSDgjJtiRpB s MRB3TeS2WOC7lITkfP4klBxbd zetyF1sCin+PFq6a3zheSSqYC 0mpNL7GN89RT63gHAtq4D9dGG 9 H7BvFIOddkzicjyrnRT6JZIiM NXdcW05Qj5aqMqlVl3lWOMjMX P7BSFvbVIwF4KjzM5xAzYxQAG w JRRdA1WwzAVqFPftD046VBztN cQ3JOBkcbVtZ2EzYXWgyTzjWz I3y4F2Dz4WIL06AZ67HG84yQH g r1H8tKA3B6ZsKNKsglgovmlbk ZR8ICYzDCDnpC74Wl3oqWswAb 5jKWHpICV7RXEvnTJpF0TxmF3 y DaHeYHWqZJZpG9ZkdXNcYVwyD 094CYcsHcA9GEItxmJjV0FpNN HjfWzyPcO9u8N3Em2DYw69EH1 0 KM50lEGrx5Y1kDD5F8PjBBMtt luqavlgqIJ3CBAwSCJbjK67Kl 7thRtlZc0rBGOsLSF1NKVatUJ z P9OurB9mDaDxSTBkEDAcK6Ftr NZeVSgzE869HTfyDrO4XOCgez QwT2MoRRGnnUnjOgV7x2P3Ul9 Q WJlgiyf2V4BhJmngtIU+PC90Y NVdBZ83sKPouDUpw0lajXi9Tc UvFTRkPBV1lVtqATijl0UyXZZ t Y24gtWTz (more content not included)... [facility] Coding Summary.on 08-03-2022 Coding Summary. CD:747279Aqeu57RWk3v Ww+PG hlYWQ+UM6AAULxG78goJUcvE1 oU8CSXBxKCizoWUAUEFoLWfKb tgVqDY2qaLCwGIIe IC8+GV3pHUItIenxeVWql2E2e YP0B07ugz9wUGaoiGY8QUDcPh Kmxmwzs3hsbMh5QDuuYshiLwH t FSTrsI49SXD6tZ15Lr59zOEns JPsv8euqFl6CpQkERDrBNJ1eO xaFEevc5UpBGVmS96xoVUvz8J 6 TAAsjDgtrNUmXxFwlHT4wP4bO Nngqride2ajzlfdRrl3zv61gX Zyz2B7vUB3Y5HsqcX7GJMtlBB g CdpkjTEOmC6vlcjut9bgvecvJ bKpVVZlPPy4HYk5FWAhtQfdSf RyNJ52UGR8LIQdegIvM2UiKHF s wAclHhD3e1P8Ls9LR3CCNomfW 1VNTUFSWTwvdGQ+BE55du21B3 LdJmmrEdk4NLUoOVJ8pRU9dP8 n VVImASupi0M8jTD6E2YebgTao r1sr3aqJWPbECwaS77bxRYlc0 J6XXGejVA1OZXhpUqoDoKxvC4 3 Oyc+FUPjsAkcp2QxDghve4tpc 5vyaKu5BzwbXQZbjnRgzTglTH N9s9OiOm0gYGXmkGK1mKB2qA2 i TdRdFbP6SXrzS039OhXquDFdT dmsK57bW1GakPI+NEXqDzf4GX NbsKqzEE9jP6FsQBAhsthazBG m pRquWE9pWOWwrrpvDFVlsL6qQ LNfF9c7QgGhBaL9RWicI1ZiJH TknowvYo99bJ4dFlRwVaV4NMq u E1JrwiC5GACrtGPaULjkJZM8U 05wb9C6JURoSXZsDZL3yAM7gI 1hbGlnbjogbGVmdDsgdmVydGl j VVmsEXhuO494RTJptNkfEnJmU GluZyBEYXRlOiAgMDQvMTkvMj AyMzwvdGQ+LTYxZRH8gKmbEXV n gDFyUMfcMm8ohPqlnJepEJ5nI PCdbnrbOCBbjN2sLSIkbZLleK zaPY1rZTLtsutpj712EiLsFZS 0 QYPnpKQbU2EajO8xImWsJGOcX TMaE9PffCUzQUxhA756JCjfVb I6LTGddwUhD4EpNFHiqPpqAlC 0 m4F8Dk4Mh3QsplhhN6DgsMAlJ bGaUbttQHf1B6QbMtrquMY+PC 55SKEaVK28GYd2RWE3nYvzOGo i QPHlO2XvvT9zBmOuXFPvGPYpP yc+PHRhYmxlIHdpZHRoPScxMD UnZuIcrHgnPA9fCp6cRSDbLNR v jWdkzDOxRoGht2rpGSLfAWikY D0heCtxH6ZhzGL9YAEdg6s8Ey 33V48zT9NdiYT+AJYrjDK6dOA 0 jE8jAiGdSjZ6EGftT891PwMnt RQwDnkzr5frc4awiWl2KzJ3HK WudqZgsHqpPOA1z1OtCi25U91 s IHdpZHRoPSIxNSUiIHZhbGlnb d0aqX3wCr9+EBPesSD5gFY8wU 4eYnAaGqA5OStoA276NyTalVJ v Xrauh5mik4rgbHx2GwSeSZCjn fEqjSeoCZT6v3JgEc97M0VgaU kux8GxAdb1ir71pGNfw3P7pNZ 9 S9RqTXCouxwvyASyaYbnKW5eU GSognemAFKseK8pLHTpM5g9Xn KhEnS7YFshI2QdxwN6VDFasXM g XMOakSFQaT9dglkln2xcfhsqJ gBzQGFkMQy1JGl8CNFswSukGg SmBER1WfL3QHX8nXVhyP0ogNw n zhvotT8fKcd+OTR7vNQffMUGQ H1sAxdxfFT+YMIiRZP1gSarLE xdUGEosF4sYULcS9b4VrPvJqQ 1 LDweG3HbzoF8TUKepIXsPCIgb OCKwK1qolqxg0pispbvLzJiBC JlWLd0VZq0XTDlnWryNwYkHKQ 0 RxN3NOV7fBJllT4ozLpubdydu G9wOyc+AenpiZdlXRX1EOj9M3 JvOoo9OSEiuPijMJ7hlRFxGAl u Bd6dqPaziBauVW5oNPUwdzves 644QxSny4hoXIMpvOBeHZneBC U8J01nk8P3AXLrCIYtCAG4rKL 4 iQ7ciQkgwcwtqRLwzVpzfgIzq LzoQGzyPVaiA517EYYqvPjlEg UdNAw4A8FaOmb0JCLgzOhjHD3 n vPMuAHafKr0ksJbxcTrsVR8cB HQoujhgm734BzTyk0osKYKjyY KvKUepPYF4I93yf2T8OHRdYAH w YFM9zJB9sF0fkNftskrbtWGyo DnmdrVwlAdbRIafJEjfN261LW ZulQkxDiAxvVh3O8LqOdn1KKA z vUvbBH9ghDOaMVttPq4lrXoan KiyHI5eFCOiwfyoq963MmQkl3 eaPNUiwIZlQXacUOB4E17bv2R 6 BYOaEMOgIQU3oLM2iI8hkNivt jogbGVmdDsgdmVydGljYWwtYW bvX703NEAfdKrdCnPdhHhywaU g BLgzBYy4P4LyLebcwZC+PC90Y MErMW29sKCqsCRnu0cgsFt3Qe MtGNXrFWB7bVbaSRepb6QpCNM t I19ltPUio0Q3OCZztBfugUOhW jAqyMK6xL9cWYksodacz9jwpe dtIbush4jnke46cQ28P81jDHw p YJSlKVUfACQvMQEwxLpztg1wg G9wIi8+RVMkkDK1oTP1iD7dMZ DlEdI8XItuU561YiLgsYPaGut j k6ujf6uwtQg6PfQ7DLLfluKqe JlgRFO2j2VdZz87U84uFLmsHR OlPXSqGSMzIMJzcIcglk2hbD5 w Ii8+YVSkdFT9dWO4xY2fOoZkY qN4TThjD841NcUobTFbBipeO4 3jS4FjqZT+PUFhSid3MFAgkZh s YY1vyVXaKEjfHz8hEPX5QzLsK gIbOJvyT8HjCXSnztbubrmnwU V6BLLqBLMvgB58Jy1pzUdzCKX w jCCLzS7lpqhjp0gbpbrcLyQkM ZVuWHo0WJa9TCReuRinBfDyPL M5IsZ7BDC1hFLivY8huExkaed g vZ2pI5JcTCTilmenKj19eU3rX aNgEtQ5WUefPty+DCJLX1YLRK 9rZCoAN8mTPXTUWE79HB42yYE g j1M9uAM9V9UiCZMkvmjprspka GP6XGYxFTSteY51fFVeCXoqSb 4bw8P5g254SKDnVORivV38Th7 u qTcxLUWvpNHOrN5jesgyw6yqt focUrKlRPTbPSw3ZKh4VVFwqH ppHlZnJQP8VdT7AWL3nFNfjF2 h oSmwyajavU2uMmc+MDIvMDgvM Eg9ZZmzwAG+OGRbJFP2uGixFL ebVUIweG5hGSRhG7f1CjLhQrJ 1 IVrcB1ZyKVQpozfrIs75wR5rI iLiIaQ0LVqqM3SkepD1LWGacM HlRQepCSD3B17jy9Y9CNIgYUB w CKV5mBQ5oC4juTpqfeprnOWmo RcuzeKoiXcaWTlkORysK269FO AudWnxZzC6ADknUHQxJV41LK5 8 uLEga2L4gQY5G8YaKKJprdpnc gmsqBY1WGNvNGWtbY91lAFuGZ tyTs6yp2Y1p393EUUmJWZapG8 7 Yt9jhQviWJVmbXSHsY5aaszav 8pakrcuRnZyOFKvSCe7BQh2OQ HjbGvuUmBdRDD3AiI5AOB3pPI h rQ6tiQhjorhvfF9tKbr+RmVtY VlcNI32XV77hUGlh1I9wHH1Z5 ZvQOLcilxprvaflNE1DTJbXYO w yQ97zTTcPYmhJf5jz7M5z447H MQqZGXnmS70Ad2quCcuMKIwlA SViB9qstlfd4eqikxdEiZsNEL w GBh0PUx9SATvmFhvBcFrBIO9F oK9DEU6mNTspJ0etLvdkgywiN 9wOyc+J3V5bMZ8qQHjhHgprUR + PX43sq15K3SiXybcCix0HUGuM KP0pCV6cD4nSOLuBHnkh8C0gZ V9V6QcoqBedb4sd8ooYWVzGAs g U93ofOEzs7B6WHJhiPP8EVRue TxjThJreX73Cab+PGNvbGdyb3 FjKbtzj2cco0cqyTn4OrDqMHQ g xgTybNdeUFX7a6UgXx17A59lF HdpZHRoPSIzMCUiIHZhbGlnbj 2zcU1fIj4+SIWjqXF1dRB2qQ4 i BjYeCdG7SJpbP527OmVztSQmJ hhhb0rrq1eynOo5SiZgHSSqwt YviUsjENY3r2FrXs64Z9ExuYy y k0EdTeo9dj32kHLin2S0kWA4V 4KdDPMuomaghZXpkOnwAC9bOY WwzmbnKNImmZ8zFRPcC3k0XpK w ExQ1RRzcM8OkrbS1JIYljBDyI CUykNDOdS6ghxnuc9ozhuokVf TuQCLrGXp1HWg5VIIamDpjEbS s EYM4RuR0ABS8zPIqoR3npLifm ntkuM0mXub+EZm3e9cmzENlXE 3faQK4RR64AB51qBIep1Z7dRN 9 G5MhWBFsulcuubzekIA6IYToR OMcwG26Ma3xiQvxXa3wDKRrCH E4ULKrzMVaE3ZmvJ5mCjAnIUB w MKIyX5VeuZZvNXkgZ451ZZpzZ wO4ZGHweeDhX3IfTGFujHvnBx B5l5A3Yl7RQW44RM43XY64sAF g e1W3wUL8H1QgBJNzjxmyjvbvy PV3VDCtMCGnmU18Uz8lpFlsGm 6tSIGpMRP2BQIkkNVkQ0XhrV8 y GuGpYLKqIJTdD8IoiZMxHFcdA 122OVgbYfO5NGCytiLbZ5MuYM PcfHbzJxT5j0T3Ih1AFm82HV8 0 KX40lVSky2V6lWK4Q4ThJDLhm pvgqtweqTW3IKNwLJCciE21Ge 4moIpkJp0cWMWxGXY9YJEwnDB z Q6JqiA8cUgKvQIDkYMXcT6Ylh ZUrDQfeL811MFksVhH5GENosw UsC0GzIESwzNaqByK4x9B5Cf4 Q HNonmif1T2PyNrxjbEZ+PC90Y LZhOV62sXRrjIUuj2mohLb8Uf AqZEGwPYO9oIliNRxwh7GnBBA t C23imCQu (more content not included)... Normal [facility] Provider Letter FTon 08-02 Provider Letter [facility] August 02, 2022 BERENICE SANTOS [id number] [address] [place] [address] BERENICE SANTOS 1995 Dear Berenice , We have been trying to reach you with no success. It is important that you return our call regarding your ultrasound upon receiving this letter. Also, at the time of your call, please provide us with your current information. Thank you for your prompt attention to this matter. Sincerely, [facility] [phone] Normal [facility] MRI Spine Lumbar w/o Contras ton [...] by: WHITNEY Technologist: SHELBY Technical Comments None [facility] Consent for Treatmenton - Consent for Treatment [id number]#1.00CD:12 7 [facility] Consent for Treatment [id number]#1.00CD:12 7 [facility] RAD - MRI Screening Formon 0 07-29-2022 RAD - MRI Screening Form [id number]#1.00CD:1 27 Normal [facility] US Gallbladderon 07-29-2022 US Gallbladder Exam [...] Ruth MD Transcribed by: WHITNEY Technologist: CHLOÉ Normal [facility] Ambulatory Visit Summaryon 0 07-27-2022 Ambulatory [...] for future visit, Lab Collect, Epigastric pain [facility] Consent for Procedure/Surger yon 07-27-2022 Consent for Procedure/Surgery [id number]#1.00CD:12 7 [facility] Gastroenterology Office/Clin ic Noteon 07-27-2022 [...] was previously evaluated in the ED at [facility] 03/23/22 and note indicated patient with blood [...] follow instructions per packaging and physician's handout, [employer] [facility], 157, (more content not included)... Normal [facility] Comment on above: Result Comment: Elec [...] Follow these instructions at home: ? Take ypka-mdv-qvfhoqc and prescription medicines only as told by [...] the cause of the bleeding. ? Take vzrb-olu-sfdfjtq and prescription medicines only as told by your health care provider. ? Keep all follow-up visits as told by your health care provider. This is important. ? Get help right away if your bleeding increases, your symptoms are getting worse, or you have new symptoms. (more content not included)... Normal [facility] Physician Orderon 07-25-2022 Physician Order [id number]#1.00CD:1 27 [facility] Pre-Certification Formon Pre-Certification Form [id number]#1.00CD:1 27 [facility] Coding Summary.on 07-08-2022 Coding Summary. CD:[id number] Ww+PG hlYWQ+LS4UBXXmK15zuRXrlG3 pS1BARUyJVfqwKVDVQOfXSbSq sxAlWN5ekCRvTXFk IC8+BE2dVLGkIcbbaSGrf0M2f LG8A84qfx6hCZsfeNF3CNOuUq Qvjmner9frrGy3NXhiPytcXcJ t OIJrfX59MXT4mC82Qh80vRQqh PUkd1xykPb5HyOyMCLzHZA5sI fmJHwjr6SfUWZsP67zyNYhg7H 6 YOBbyWacbADhHzLmmJI4aQ2uZ Cknoiqke0ednoalQwo2vo56iC Iyw4G5qSM3P5HgpyN7HDHmnWV g CoilwNMNtI9huowyj2fujxfgA zPkQZZcJGg3YGp1GXAhiRrnIu OcGX56XDC8EPDzdnLkT8EfGLQ s sWwzZsW4s2M2Va1UP1LEMyrbP 1VNTUFSWTwvdGQ+TU84aj77M1 QmAovrUgg6MXLrMKM6qLJ7lM2 n TIMyLNicq6R0qJM0O0CyubUtw t7vj8apHKBpTGwyK60vdMKmc3 Y3JBXibMO9ZZLfwWjxBdKzzG0 3 Oyc+BHUxmLthg3ThDomll6gur 1pezSz7FwtjNIHnenNwzLgoWX G2m8SiEh1rYBLmrFQ2oBW6iU5 i GvGwBlL0MPrrQ149CmNkrIAfA ticD88sE9PdtWY+KAQuRpb8PN YcdOxeOI1aF0WiKBMkciynoDQ m iAeiMJ6pTWYmxllmFOSzqO7aC ZXhN7i1TxSlJkV7NYalP5DwYJ EsgifoZl81dQ1gRsReXaD1DDg u K3BqkkJ9FFElaVHwLPauWPL3G 04pi7C9MZRrBCLdDDY3hQQ2hF 1hbGlnbjogbGVmdDsgdmVydGl j ENhcHDovF493TKDvgGcxIvWnC GluZyBEYXRlOiAgMDMvMjQvMj AyMzwvdGQ+RQPvVRM2tNjqADF n lERnMQwnXb3pwTqiwDhwKW8zU EImrndaXFEkiM9lPYDzsEIsxN irGH7rNWSzhkcxu007MgMhZHF 0 FBVhlLBhL1VxcV9zBkDzCEFwW HJxY3AzqWNwZCzdW868RFvgOk K6ORXtovYhS6TzIKNhfFdgTwD 0 r9C6Tu0Ap6GynbanZ7XyaYAsY bGzVebbHIa5A1XnXoqoiHJ+PC 60RWJzBK68TIm4KSP7wAtrVQi i XEHuB0ZdaD7cHzLnKHMbYNOqV yc+PHRhYmxlIHdpZHRoPScxMD LbYsJakWdcSS7zGi5wZHYfAHA v pUkmqACzIjKli6ocCYHpPEkfH N2klWwgB4UwpYD5XFLwj3e3Fe 84E86gA6DnbOU+XDSdiXR2mBX 0 kY1uWnQdEmM6OEdzT946DgKvk SBmNxicj8rcq0mfeTd7RfL6AM CqspDavFhrACS0x4NlXy01J02 s IHdpZHRoPSIxNSUiIHZhbGlnb o0biB8gVg4+DJSfdZM0xDL2qY 5pRyPfOsI3JUwdN194GbXguWV v Suvck4bfi6ibvXy1FdIwNOYow aOwnSaaKEI8t0DfJr35P7JkpS jdw2ElRja4pd63pXFiz6A9uYE 9 U6HcHKIbzjjldYIodEmeGQ6oB SYvkqonCPKqlC8kFNJeJ8u2Sr RmGqE7UNwzC1MuniP6MHStpFF g JWGchCHWbQ9dqxqty4qphwrsA mOxIEQdZTy4GIq6ZRChbCzbBz TmCZW5NwA7SYC5qHJfiT0lcSt n stghfE2pAmn+CPC3bVZmyUWEZ V7hPbpskTJ+VWYyWYQ2kHzsEA muJTGjnM9bQSIoP8n2AbMcIhK 1 XTrgK8MzisZ6YXDzsSHcOEOfo GXRcG5wxkffv0ojtixaNjSvPI VvMOr7EQn1MTRbfMvcXiNnPHX 0 TuQ0AGP4uCIsvD4veTfilvwwd G9wOyc+ZfhwkRvlIGF5XIa5I1 SzWfr0SWIeyOfiFY6keGAzGKy u Kk9mnDtaaRcaXQ9zPCHpdvkuj 497RhZqn7foCUJawNQpMDxtMP Z4O48mv7B8LOApWWNdJYQ2uHG 4 iQ6dhBgfacqmsISjlNdnfbQld WngCCqeISidA629GFLlgWjySs McUZi9K7KcErw9MHZhlChwYU8 n tNRtGJrsZv4enSzxoTgyNA9aB JHtykczz669DyHmf8gmXGOqaG PfXVulEPK9B21px2Q6BOGzPAD w IWE5uIE9qO4roHefowyxmHCmj JonkyAxeXteTOytNAoxQ735OE HsmTtrSuVmyAv6B9PoOkq2MJC z dJjwPD9veQNaWRkbDm2uaVvyp HxjWC9lQPRetmtoj981GcRjv8 tcDNSekDOlBAqpNBD6D41pg7C 6 XFFaMOUyTZC0aYE4jC3rwXhwd jogbGVmdDsgdmVydGljYWwtYW fhY395YVPhwJxdAeFudVitwzY g PMtpYJk4V1OfZqemgDZ+PC90Y GIhNO50jUQttXQcl0ilaOa6Fh FaYRMnPCF9jGslLFwuy2YjYJI t C13kuTCgq3A4NUWtxKlumIErY bEgkKX4uZ4yQCmnzlpzr6etuv ypZbtue2cmwe01rY90J67zCRe p WEFaKLZdTQMbGGBtnMyphl7ux G9wIi8+CTXjvNH8sKP1lG4xVK NlFoU1SGywW536YeXufWSuIpm j i7yqo6pyjNe6ZtP7ECCnqpJlq SmnMVB7g8RjHx74M74eYTppMC ZhQBXtMPKfMWXnuZtfuj5ofV3 w Ii8+JQQkyME8fPB8mZ6nTdNyS mZ6ASjtT591RiOzkWPfVkoeN8 5cP2TyxZT+VXKtGdy9TCZguBi s MH8jtZPvIBukQc9ePAU4QbDcG gUbWPlsA3MjNWQpvoabvinexZ S5JIEhTAJtzE37Gk5fpZveJFV w rFWAhC6mkjzkg6ufbiohNbIqF SFvLDg8CLo1ZWIgrUedCnCfQX V1HpS0MUV8cAPekA6ilGluhaq g pM4tC8LbIBZbclmuOb60lM5qL kBdJtP0LThnLoe+ESVXO7VZFI 1fEQpEL6hZHRODHD81LL03yBN g r4O5pYR5F5IgJNJekaczjowzp CB1ENNtEPRisE89lKIkVYfcWb 8cr7G8q050GCDkJCJrkZ57Er3 u rPcpYOHtpRFZaF5aojnzv9kfu sheEhPzYWBwTHs9SXd2HUIetM ugEoOtOBO1GlJ2ZSR4xUCtzR4 h rMhxbfgeiL1aFqg+MDIvMDgvM Sw6WGukqLM+MMUlPEE7jDyrSQ bjHOJfgB4aOIHkG3m4VzKyEcZ 1 ANfoZ8YoKGShcbtrVa38cY1rI pJyPmA1ESupU4DhobG1RQWgnG DcXDzaESX7Q73zt9A5BQPxMXP w BOV6lYG4aS1kcGspxhbvvSDmz McgktPyrLhbTPcoYDxuP147RP LhaQvdRqW9DEsaMFMwEK51TG1 8 wUIzg4B7wGU9A4RaALYhhszyr wszaZO3UQFpBPVbqW64sIVfQQ fnNb0qh5I6p086HNTtVKYliW5 7 Aa3gvAxyDXGxdGXBnM8jogrqi 9uflklhEiXhAYWkWBm1ZJk0DK LaiRppLcYqLBG6EiX3KXB9wOY h mH5fxLuujhqnsW6xZtn+RmVtY PhvKY44HS33sAEki1E0zFH9A4 MmUNEbhqjbtgvddQI0VYKlWHZ w rQ33lUDyBYzuOe7gr6W2o487S JTqNCKakA28Bj2obBzdUJDaqT TXuO4cgwigb4ljxqumSpNjCDS w JGg0POz3CHOvuGnyWnVuDCS2X nX5CWC2oIDrfI9fuEkzwwldmI 9wOyc+P6F8aQL9fATcdIgeaZU + IW13ls49B5MsDilfMlg7GCOpC HG6cGG3mE1oNZEoPUtsz9P5tQ F6T7StccZtcc4kh2fcHDBgRSz g T50dvYWxb5C4RLQpzDR4MVHpf BsyLvRddQ45Mll+PGNvbGdyb3 HwZvnyc9jth8sbzRs4QrQkBQC g qfMthKpxAPC8o6YgYc18V80nG HdpZHRoPSIzMCUiIHZhbGlnbj 3auD9oFx6+LCNcsCT8yMC4hT6 i RiSmBgS9RYyeX130AmWfuFKuB yygq3cej6tzxQz0QmTxISCiqk SsmPiuJMD1w3FdUp33N8QqsTf y b1OvJsj9ag30yQGjx6Y1gGF6L 3OlKGThoyaciWWaaXujHU0tZX BxnvrdYFMinV3oKQTrJ3w6FsZ w XhO4IRlnR2GhliK1HMMdxLOkH WJpcPEAtD7rhzijg1ryqsurMg JoPGXrWBj1AGf4GVXndBxbOxW s HIH6PbX5QBP2vXVueY1skKgqw imuuX9kZem+WNh7i6likGOhZX 4viBF0FJ60UU70wEJjv9C2tNQ 9 K3QyZRQressowjtkxLX1ISOyL IMteY26Gy6xsJdrTu7wTVFcNP P7FZDduENrK3TqwQ3kLzYiUTM w QRQdH0RnyKHuDBcfK153NRciX uP6KNXcnjFaQ3XiVKGwdGpjPx U0u2S2Xs0IBX66XN90QI47wDE g r7I8mGV5X5KwFUYhbopzwcuij JE5SACbNBGjuT58Ku4huSseLx 2lLSYwISF3BHMwjATpL5ZhmC6 y UmYjNUUiGSCoO1GlzJMmSAjlZ 137ADnaLzX6IGSttbCvR2DzLZ MouIyoAtT9f6L3Nn5CCi84GB3 0 DS44zUGeq7M7hII3Y5NfRPDvc yqvkzydjEW5IYVyDWXijQ61Cc 1icSpzTt2rGKDtSVT1GCFklWV z H0HomS9oPwMlGXDvGGGxS4Hkx JQbSFmpI147URpiFlI8YLVfbi IkE8GiAZNbgDhwXsD6n1K2Vf9 Q UTmhpdu0F0YxMtjwnQK+PC90Y CQpEQ88cDZrnLFpc6wxvSh6Af QbHRWcSHQ3tPfdLEecf6GlOWL t E13sdOMz (more content not included)... Normal [facility] Consent for Treatmenton 06-15 Consent for Treatment [id number]#1.00CD:12 7 Normal [facility] Physician Orderon 07-02-2022 Physician Order [id number]#1.00CD:1 27 Normal [facility] XR Spine Lumbosacral Minimum 4 Viewson [...] mGy = na DAP = na Normal [facility] Coding Summary.on 03-25-2022 Coding Summary. CD:[id number] Gh0bW w+PGhlYWQ+XA9BQHRnQ10emNA tbH3DB1aDOP4NXLFQCYUJOX5C XP8ndIM8PTzcC7DjiiMa FslpdXNeIW59NWs2RLM6oGebE XnhuI7kjENnX6b8TzBmPC63hP 92RBlkEVAgYlP9PnGusaclpGR y D7vfOhHgiGJzGtw+PHRhYmxlI HdpZHRoPScxMDAlJyBzdHlsZT 1yIi0kTAQtIRJnlMpwrXDfXnI j h0mqBGOoNHikCR8crNagJ3Xgi HS6GJVqu2g8Dv36rYW+PHRkIH D5yLviKLhlc274HqHda4vgGOA 3 vBRwHJqgUHU4V96xh2V4MMJoG CQrDTX7tCD9eX3smGxzhjzvS5 BciSArQzZ5OOL1pFDrkB5hcXb n plyfmL7jFzq+Q50YWB7PWGVGJ J1EMxg6Z3ErOdchmKP+PC90YW MkTF22gBIwpXZoh4vsmOp0IpO w HENmRWN4wGrrLUeuy4UjMQGjP 57naEWck5X6MMRarXvbrMUaHi UeoQZ5nJ4wEHrbkybvc4lqbpy n Gioev3auan01gD66B38sHRxsU XJrNOW7IRTqPXUbwJbbiw1meY 9wIi8+LRsqf9pgz8depFm9SzY w MUGptsRxlYuxZXN2e4PcTu32Q 1MupDefc7DhDek4yz31sBFpz2 P7dBR9CCcvWMBsqO3sJFelUnW 6 YYItMqPtjY60xAYhQHvjLk8st FphyDhbPF3rAYXinavrLOAejR 1gHSFiyYPdwMugEN0fTHPcaou m u309XuDeKXY1ZRQlxYOzN4Pjw A8vEuXlBDXzMQTcQ9TjaGHqPW rsO047ONdeEiE6BHWvoyIzJ2A s ERLdaXdoZoS8g8S4Lx3Yq8Kjh tprZUP9KBaaNTHmIiN7TzBjJl E2E9TxAwb8EVEdjLvdRW5eU8W h KIXhkywhbnoeqHY9OCDuIVMvq Y83nZSjSZcbKx0il4T1g690KD KkLFYerT16Hu5xiUbeAMQglNG U rM4mgubtt3etqhrcNaFdXJDoH Re7CWc5GIIzkEtyLiFeRGE4Lr Q8SSA4aCJyoF6anVsnbabcrW6 w Oyc+L19ouW8vHKW4JBH7rkbqE CYsghNqCQ51KU50O8JvRrzrsF FibGU+IQAzmuKbvDoaTP9nJqS j n1aur4WqLHprG6TnZPZlGKzzN ka0XLInGCY5jBF5jA7rJSKrOY hro3H0fLY2F7CtotQuxh2kn1i s QFIuMXtmE11dlRGuy6Z2SKWyj GJ9VLOfmWuvWwSabG00Uqf+PG CeeGfwh2AlPfxba3ygd6mwhMc 9 DjReJKHvogFpcMsaUZA4z2SkB w51N49lGRthBMXbYGZxCMXkHH ZfmDerue0hsF4xEf4+PGNvbCB 3 cSJ1rT4qIQTeJaZ5QTapT369I kZhuXQuJfwcz3ofi2flrId1Nh MeWIRfqyUbzIykFEA6o2LvSb2 8 B41uMUfgGUMbKRWsIVDvLPQou Uhgxn9abS2iVr7+YK3uw1gkgb 98wB23jXE+WCEhWNJ9kYwdBHf w TFFwfB3lEFnrNpN0YNYjIfQrw T79xWBnVIvjWb9vtAtldQorVL 6xNQYbeafig425RiQzv4hxHOP w sAZiJBnjXUY5B28dn6H8FPXjL CGxTNJ0rUE5wB9nuFjuburuzE EhbQobvbJfkZjgXPrtFXslK41 6 IHRvcDsnPlBhdGllbnQgTmFtZ Jv1F6EuEdp4NDJstGtqAT5lmI SvVIqtSn8ryXrwqXdsOO3gNLA p dilln345HkTie2cfZYLwbRInK YdfJHJ6A07pq2T0EKLtPXGgON H1vDQ0kG2njYqwgcpqwSEilMe g jgInnHioKNboLSbkZ237ALQrs OwsAzHszoHaMFGezEY3DB51BQ 74lGSyx3I3jGU0N2CiHZPgtpp t ncjzeNQ3NFMnUDNtcM08Br2zr MjdYr1pFCSiXFI9OAUddEPuE5 YqwZ7cOkTvPSNwEWXyL0QhhKY t QRvgF443RRwvUrE8HUTfpjTjA 8UnQDAezFluFsO9m3C3Mf7QA7 X8FA42PR05bRHfe2X9fXW1T8Q h EOYwredmiccerID3FHGuIEUjg N22Bb1tnWmvLl3cVODcTQM1BK JsiEOlE0BenV3aHnTuBYTyZBB w M1EozSSlUVsnH025AUrmLqT6C QIetfVpX7UaXAWxdAwdLcR9q4 E0Jv9FTZt6EA48LW99rRKid7V 5 gKD6H4RgIYCdsmnkwwrhqZP2M NNaXESnlU00Mi4fyFwfQf0bDJ GgWZH4ZKAsvAWoU3OleP6yPlG j PHPsORUfN4QdyRMzDGymA035H TzdYhE3AUStasWiY8VkODWugF mpZyA8x5D8Lm6YYKRlMU05EPD 5 eCZ4DF15FN11X2ObDjdbaMMyb +PHRhYmxlIHdpZHRoPScxMD GrEaLvcKdwLE9mAu8iLABeQNF v qQrsuUQhUbEkp5gvOJAeZPtvW M7cuWepK2JnsIZ0YKNlx6s9It 10M00vC2LwfZS+CCNnhWU5gME 0 gY2uIuLsIkC6KLzgW546AzXux EEiAvcnq4ytl7nkvQu9DsE0AA FtrwEpeNdaETQ3y9ItDf74B50 s IHdpZHRoPSIxNSUiIHZhbGlnb m5nsF1bRw8+RVGbsUX0lGH7kQ 2mMmRcBoZ4CSenP458SeIejKB v Zjusw0usg6jhxIx3DjGuFBBjj oTruLneSJD9g4OySo02Q0HemI hfj3AvPnj0lm40jPLic5S6eIR 9 H3EaGGXcnbvkhGLinYhkAN7tT WTzcgvvTTYlaK3qKFEgQ4y5Yn SlLkR1XZbmW1WvboT2MAFnoLN g YEoqRTB1B08my9S5XJHlBHOqR PH4lFO1gS1olVygnikogRGenL gaixNgzRvaISrkMYtzQ436LHF v lZzmABLufA7iZHWwtRDzuKvlE T1vLEQgxglmUiDQF4NCNRzEMG BMRVNMSUUgQTwvdGQ+PHRkIHN 0 sJamGElbGLAxsG5iAXCrY0u4Y oTpSnZ0JHfzT4NgOZLyhpbgOx 71nI2cTdHoVqO8YSkpX8ClvoF 6 RIFrrSBdHYxyTZS0C18ce3R5K LFuHHDhFKQ0eDR9uZ8aoLplbq ogbGVmdDsgdmVydGljYWwtYWx p W460SMYpwNilNbWrXeE8QaO8K IG5Q4NsRxy7EDAfiWirKC4bzH HxQHddNq0ozXztzOafHZ2mTON p tzpeJHNzgV6cOBSsyZNdgQlrI I4fWWKypscnd684RyCoLJY2NE MqoZNkX0FsnJ9vLmUlRBWdQBY w E3WziDGrHVhrI076CYcpIgU8W PCnhqIiG2AfQCNrrNwoKoU3s1 N3Wa0aDYJCZGFwxqjskFH+PHR k COD0pZheEGlaPTUwiM5hJMQnX 8g8NeTfOeN2ISjjL9IpVRAjoi zbFc31oX0xTxHnBeV2WHmeG1U v haX9EOLsaFEyFLkaEJX1L89pv 5W4ZAEsCJZmJPO4oZW5bI9vtK lnbjogbGVmdDsgdmVydGljYWw t MAqrH665XGOmjGpnMzFnzPFjC TwvdGQ+YRIxJQE6nJxpSIwrSS FctY7qWAZrL5w5IpDbHvU3ZLs u E8BrNINjoyvfXu94vK5bPjNzI wM9TOyaZ8XlaxT4UYTuiLAbAE cxBBM1L14hy9C8KCQrHGKdLJU 7 xHW2tQ4lqVitjpsvnMKlkCayh nBcyLnkEPtiPXujK194VJGljR teXsUhYCNgQM5jfKjicYM+PC9 0 le22L8QmDikbWfo0GTGwZBF2p CP2oD9iBQYrKKwoq7V0rTC6D9 KwxkNvvb5ab7uzSBCvAEhlH51 s vUDvr4J3AWXxvOO7BKRljWkhD eGidT47Zlc+NHUhtBiud4ScEt etj9zmq7ttdZm6QnYbRPOafmV s mAakOKR3k0OuZq21W30iAUvqM EGxWYUuRMAyGZSzbGfmmr1gaZ 9wIi8+WKVrrWY8xTG2jB6kJwH l EwR9EMiwM658YtUvmIWoLwism 1gwh6pyaOu4YfBhDIEmofUkhP epVFZ6z0RfNu11V4ZehYdgi6N w Seu8fw35sYMff3B7iWX0L0CmV RNvtssryUDusXisEL2xNNDubm msVEPraL5zPZBrX9a4UnGiMpP 1 DLouE9LioqE1BPVjzDQeBXCpl ADVuF4uelspn9cmomcyXoOcEW UrLPd1TWb3DREqcFklCiYvZTN 0 DqK6QSQ7jLHzrU1jvDjzwtfti G9wOyc+HVb2v1bmnIItCK3njC R7JN51KJ10xNUdw4R0jFI2F3Z h QZBnqhktcrhblGA6VKMsVEWco S85Sh8xuStyNj3oSUAhXPF9KB PxeUBsL6FkgJ4pJdIcOSZlQNO w R5UduAViTYmkZ047UGraHjE1R UJxebLoE6CdUDHbdJsvWfC4m1 I7Jy8IRT75QU33UB25vMHut6N 5 pTF6P3CwWRTjmlfophxtvPB0X KOaBTTmqG30Gs7urBhrBs3pBM NuZXX8IAAvaXEiB5BbcL8kPqZ j BYUaSUPhH7ZpcSPnKOowA532Z SbmHnT7VMWmcoPtV2LdUAXduK soMpI4i8T8Zg0STd06AC36DP1 8 cMVgt3F4uSH0W0MiOQIhvbnwg qpqxNN1AEEfZCAsyA28My1uwA tvZn4iYTGnQFO4SDAstNAvJ8L v kA1vJaKxKVBtVVXzN2TypGVgV FyaZ052TXumMvR6EDTpvtYzX3 FaEOQevMfdUtH1f6S6Gl4HLNb l jhr8B5TqOqdcbTW+EA12KGXqL E76aBIlkUVci2hkjPm6JsQjSQ StRQN5mFvpCDzzy1StHFLpD80 s bGFw (more content not included)... Normal [facility] Auto Diffon 03-23-2022 Basophils/100 WBC (Bld) 1.6 % Normal 0.0-2.0 [facility] Comment on above: Order Comment: Order Added by Discern Expert. Performed By: #### 2 [id number], [id number], 1561385, [id number], 0254287, 0306942, [id number] ####[facility] [address] [place] [address] Basophils/Leukocyt es Auto (Bld) [Pure # fraction] 0.1 E9/L Normal 0.0-0.2 [facility] Comment on above: Order Comment: Order Added by Discern Expert. Performed By: #### 2 393629, 2698678, 5208176, 29322388, 7113974, 3763256, 08443894 ####[address] [place] [address] Eosinophils/100 WBC (Bld) 1.8 % Normal 0.0-8.0 [facility] Comment on above: Order Comment: Order Added by Discern Expert. Performed By: #### 2 921146, 0915920, 5391268, 59591286, 8661508, 4482072, 56695919 ####[address] [place] [address] Eosinophils/Leukoc ytes Auto (Bld) [Pure # fraction] 0.1 E9/L Normal 0.0-0.5 [facility] Comment on above: Order Comment: Order Added by Discern Expert. Performed By: #### 2 161054, 1060752, 1895621, 67838331, 9427911, 3427329, 73930249 ####[address] [place] [address] Lymphocytes/100 WBC (Bld) 31.3 % Normal 14.0-50.0 [facility] Comment on above: Order Comment: Order Added by Discern Expert. Performed By: #### 2 322639, 2301527, 9386121, 88384351, 8289948, 5669804, [id number] ####[facility] [address] [place] [address] Lymphocytes/Leukoc ytes Auto (Bld) [Pure # fraction] 2.2 E9/L Normal 1.0-4.0 [facility] Comment on above: Order Comment: Order Added by Daniel Expert. Performed By: #### 2 092516, 1096637, 2626713, 71992745, 0470418, 8663453, [id number] ####[facility] [address] [place] [address] Monocytes/100 WBC (Bld) 10.1 % Normal 4.0-14.0 [facility] Comment on above: Order Comment: Order Added by Discern Expert. Performed By: #### 2 447055, 9193895, 7473892, 33718316, 9350185, 9993785, 88543961 ####[address] [place] [address] Monocytes/Leukocyt es Auto (Bld) [Pure # fraction] 0.7 E9/L Normal 0.2-1.0 [facility] Comment on above: Order Comment: Order Added by Daniel Expert. Performed By: #### 2 797280, 4347309, 4449069, 52174202, 3965201, 6117121, 52647070 ####[facility] [address] [place] [address] Neutrophils/100 WBC (Bld) 55.2 % Normal 36.0-75.0 [facility] Comment on above: Order Comment: Order Added by Daniel Expert. Performed By: #### 2 271532, 8036277, 8747766, 84785137, 9189985, 1306346, 34209694 ####[address] [place] [address] Neutrophils/Leukoc ytes Auto (Bld) [Pure # fraction] 3.8 E9/L Normal 2.0-7.5 [facility] Comment on above: Order Comment: Order Added by Daniel Expert. Performed By: #### 2 096074, 0386719, 3182204, 97765193, 0313148, 6287920, 81908868 ####[facility] [address] [place] [address] B hCG Qualon 03-23-2022 Beta hCG Ql Negative Normal [facility] Comment on above: Performed By: #### 2 341827, 7134900, 4057582, 03351094, 4098517, 7809370, 81666254 ####[facility] [address] [place] [address] BMPon 03-23-2022 Creatinine [Mass/Vol] 0.7 mg/dL Normal 0.5-1.3 [facility] Comment on above: Performed By: #### 2 090992, 8132748, 4236383, 87096514, 4781992, 4963703, 91795609 ####[facility] [address] [place] [address] Urea nitrogen [Mass/Vol] 5 mg/dL Normal 5-21 [facility] Comment on above: Performed By: #### 2 830571, 5136338, 2575799, 84979916, 7113468, 7632834, 63727024 ####[facility] [address] [place] [address] Urea nitrogen/Creatinin e [Mass ratio] 7 No Units Low 10-20 [facility] Comment on above: Performed By: #### 2 566238, 3434212, 9873703, 20879738, 8699983, 5786627, 07013125 ####[facility] [address] [place] [address] Anion gap [Moles/Vol] 17 mmol/L High 6-16 [facility] Comment on above: Performed By: #### 2 691309, 4761122, 0842558, 25104117, 0988259, 0162357, 32475915 ####[facility] [address] [place] [address] Calcium [Mass/Vol] 9.3 mg/dL Normal 8.9-11.1 [facility] Comment on above: Performed By: #### 2 057184, 2353496, 8333216, 29950895, 5453519, 4084432, 31070423 ####[facility] [address] [place] [address] Chloride [Moles/Vol] 101 mmol/L Normal 101-111 [facility] Comment on above: Performed By: #### 2 884526, 0923575, 1173400, 26009271, 1854868, 1949394, 57779316 ####[facility] [address] [place] [address] CO2 [Moles/Vol] 24 mmol/L Normal 21-31 [facility] Comment on above: Performed By: #### 2 661805, 4726301, 7247977, 71437579, 5884120, 4171469, 54908883 ####[facility] [address] [place] [address] Glucose [Mass/Vol] 99 mg/dL Normal 55-199 [facility] Comment on above: Result Comment: If t his glucose result represents a fasting glucose, interpretation should refer to the following reference range: 55-99 mg/dL Performed By: #### 2 575694, 9265409, 3703790, 14121857, 8153118, 7716697, 78557869 ####[facility] [address] [place] [address] Potassium [Moles/Vol] 3.5 mmol/L Normal 3.5-5.3 [facility] Comment on above: Performed By: #### 2 845983, 4500555, 1726049, 26175905, 5409748, 3779583, 03473127 ####[facility] [address] [place] [address] Sodium [Moles/Vol] 138 mmol/L Normal 135-145 [facility] Comment on above: Performed By: #### 2 844842, 7146080, 9544004, 33174597, 3204901, 2553745, 55093096 ####[facility] [address] [place] [address] CBC w/ Auto Diffon 2 Erythrocyte distribution width (RBC) [Ratio] 13.0 % Normal 10.9-14.2 [facility] Comment on above: Performed By: #### 2 259192, 7826015, 6717331, 18774256, 6653806, 0549055, 85603210 ####[facility] [address] [place] [address] Hematocrit (Bld) [Volume fraction] 39.9 % Normal 34.0-46.0 [facility] Comment on above: Performed By: #### 2 145359, 2304255, 2628196, 78302440, 5489282, 6686105, 29309841 ####[address] [address] Hemoglobin (Bld) [Mass/Vol] 13.5 g/dL Normal 12.0-16.0 [facility] Comment on above: Performed By: #### 2 406071, 1350924, 7401869, 89672121, 6064800, 3183661, 76542179 ####[address] [address] MCH (RBC) [Entitic mass] 33.8 pg Normal 27.0-34.0 [facility] Comment on above: Performed By: #### 2 686523, 6016096, 9542508, 31522716, 1712790, 4481143, 46771248 ####[address] [address] MCHC (RBC) [Mass/Vol] 34.0 g/dL Normal 31.4-36.0 [facility] Comment on above: Performed By: #### 2 332507, 7988745, 4887424, 91951738, 3883454, 8500419, 44157015 ####[address] [address] MCV (RBC) [Entitic vol] 99.5 fL Normal 80.0-100.0 [facility] Comment on above: Performed By: #### 2 607704, 0869477, 7641844, 33553970, 8703021, 7110131, 85407484 ####[address] [address] Platelet mean volume (Bld) [Entitic vol] 8.1 fL Normal 6.4-10.8 [facility] Comment on above: Performed By: #### 2 808612, 5630463, 0054537, 66620715, 4659346, 8376363, 18113056 ####[facility] [address] [place] [address] Platelets (Bld) [#/Vol] 365.0 E9/L Normal 150.0-500.0 [facility] Comment on above: Performed By: #### 2 009797, 8121159, 5485541, 47327275, 6661576, 6082953, 11834303 ####[facility] [address] [place] [address] RBC (Bld) [#/Vol] 4.0 E12/L Low 4.3-5.9 [facility] Comment on above: Performed By: #### 2 181049, 7897495, 7361524, 18644149, 2698226, 3534261, 89080747 ####[facility] [address] [place] [address] WBC corrected for nucl RBC Auto (Bld) [#/Vol] 6.9 E9/L Normal 4.0-11.0 [facility] Comment on above: Performed By: #### 2 561063, 4740605, 3765083, 28423085, 8631702, 5389568, 63724552 ####[address] [place] [address] CHEMISTRYOrdered By: SYSTEM SYSTEM on 03-23-2022 Albumin [...] rate/Area] mL/min/1.73 m2 Normal >=59mL/min/1.7 3 m2 [facility] Chem S GFR/1.73 sq M.predicted among non-blacks MDRD (S/P/Bld) [Vol rate/Area] mL/min/1.73 m2 Normal >=59mL/min/1.7 3 m2 [facility] Chem S Globulin (S) [Mass/Vol] 2.8 g/dL [...] 5 mg/dL Normal 5 - 21 mg/dL [facility] Remisol Urea nitrogen/Creatinin e [Mass ratio] 7 mg/mg Low 10 - 20 [facility] Remisol Consent for Treatmenton 0 Consent for Treatment [id number]:12 7 Normal [facility] Discharge Instructionson Discharge Instructions [id number]:12 7 Normal [facility] ED Clinical Summaryon 2021 ED Clinical Summary [place] [id number] ED Clinical Summary Person Information Name: BERENICE SANTOS [employer] [employer] Age: 26 Years : 1995 Sex: Female Language: [place] PCP: JUSTIN MAX DO Marital Status: Visit [...] 03/23/2022 15:45:11 03/23/2022 15:45:11 03/23/2022 15:45:11 ADDRESS: [id number] [place] [id number] PHYS DOC NOTES: MEDICAL INFORMATION: Prescriptions Given: New Medications [facility], [address] [place], [place] [id number], [phone] ondansetron (Zofran ODT 4 mg Tab-Dis) 1 [...] Lower Gastrointestinal Bleeding; Bloody Diarrhea; Rectal Bleeding, Nacc-eg-Lgbm Follow up: With: Address: When: Roma HAWKINS [address] [place], [place] [id number] Business (1) In 3 days 03/26/2022 Comments: Follow-up with Dr. Hawkins for further evaluation of your blood in your stool. With: Address: When: JUSTIN MAX [address] [place] [address] Business (1) In 3 days 03/26/2022 Comments: Follow-up with your primary care provider in 3 to 5 days. If symptoms worsen, do not improve, or new symptoms arise please report back to emergency department for further evaluation. DIAGNOSIS: Blood in stool Normal [facility] ED Note-Physicianon 03-23-20 ED Note-Physician Basic [...] was understanding. I did give her Dr. Hwakins for further evaluation. Follow-up with your primary [...] Nausea/Vomiting, # 12 tab(s), Refills(s) 0, Pharmacy: [facility], 157, cm, 03/23/22 13:50:00 EST, Height/Length [...] Given NS1 (more content not included)... Normal [facility] Comment on above: Result Comment: Elec [...] Follow these instructions at home: ? Take jvpm-vjb-kkwautu and prescription medicines only as told by [...] 08/18/2016 Document Revised: 07/26/2019 Document Reviewed: 08/18/2016 [employer] Patient Education ? 2019 [employer] Rectal Bleeding Rectal bleeding is when blood comes out of the opening of the butt (anus). People with this kind of bleeding may notice bright red blood in their underwear or in the toilet after they poop (have a bowel movement). They may also (more content not included)... Normal [facility] ED Patient Summaryon 022 ED Patient Summary (Inserted Image. Laureen ble to display) [place] [id number] Patient Discharge Instructions Person Information Name: BERENICE SANTOS Age: 26 Years Arrival Date: 03/23/2022 13:42:10 Discharge Diagnosis: Blood in stool Primary Care Physician: JUSTIN MAX DO Provider Information Primary Provider: Rodney Johnson M.D. Advanced Network Contract Manager:None The exam and treatment you received in the Emergency Department were for an urgent problem and are not intended as complete care. It is important that you follow up with a doctor, nurse practitioner, or physician?s administrative assistant coordinator for ongoing care. If your symptoms become [...] Roma HAWKINS [address] [place], [place] [id number] Business (1) In 3 days 03/26/2022 Comments: Follow-up with Dr. Hawkins for further evaluation of your blood in your stool. With: Address: When: JUSTIN MAX [address] [place] [address] Business (1) In 3 days 03/26/2022 Comments: [...] Lower Gastrointestinal Bleeding; Bloody Diarrhea; Rectal Bleeding, Rbtp-ls-Yvsj A MESSAGE TO ALL PATIENTS REGARDING OPIOIDS PRESCRIPTION OPIOIDS: WHAT YOU NEED TO KNOW Prescription opioids can be used to help relieve xhqrjste-og-wexizl pain and are often prescribed following a [...] your comm (more content not included)... Normal [facility] HEMATOLOGYOrdered By: SYSTEM SYSTEM on 03-23-2022 [...] Bilirubin.indirect [Mass or moles/Vol] UTC Abnormal 0.1-0.9 [facility] Comment on above: Result Comment: Resu lt verified by Discern Rule. Performed result [facility] (Unable to Calculate) was sent as an Alpha code due the inability to calculate a valid numeric value. Performed By: #### 2 756406, 6640905, 5019184, 24404963, 9957877, 9639704, 60403865 ####[address] [address] Albumin [Mass/Vol] 4.3 g/dL Normal 3.3-5.0 [facility] Comment on above: Performed By: #### 2 [id number], [id number], 2474863, 22194914, 5551785, 5902274, [id number] ####[address] [place] [address] Albumin/Globulin (S) [Mass conc ratio] 1.5 Normal 1.1-2.2 [facility] Comment on above: Performed By: #### 2 840455, 4567308, 4751073, 26917551, 2390808, 6030163, [id number] ####[address] [address] ALP [Catalytic activity/Vol] 50 Int._Unit/L Normal 21-98 [facility] Comment on above: Performed By: #### 2 371750, 5408328, 7862637, 25528362, 2025971, 9583376, [id number] ####[address] [address] ALT No additional P-5'-P [Catalytic activity/Vol] 20 Int._Unit/L Normal 6-46 [facility] Comment on above: Performed By: #### 2 718814, 5023298, 0116902, 16162463, 5919565, 4716116, 56162874 ####[address] [place] [address] AST [Catalytic activity/Vol] 19 Int._Unit/L Normal 5-43 [facility] Comment on above: Performed By: #### 2 145466, 6800691, 0104504, 56183295, 2907045, 7940889, 25400208 ####[facility] [address] [place] [address] Bilirubin [Mass/Vol] 0.4 mg/dL Normal 0.0-1.1 [facility] Comment on above: Performed By: #### 2 342992, 7936737, 7973326, 34248352, 2906222, 5857549, 53474325 ####[facility] [address] [place] [address] Bilirubin.direct [Mass/Vol] mg/dL Normal 0.1-0.4 [facility] Comment on above: Performed By: #### 2 437380, 3961969, 2862911, 98644039, 7461834, 7048636, 85236109 ####[address] [place] [address] Globulin (S) [Mass/Vol] 2.8 g/dL Normal 1.4-4.0 [facility] Comment on above: Performed By: #### 2 168066, 4624463, 0479503, 18996880, 4074970, 4012230, 27563638 ####[facility] [address] [place] [address] Protein [Mass/Vol] 7.1 g/dL Normal 6.0-7.8 [facility] Comment on above: Performed By: #### 2 239543, 5351527, 8099003, 37756270, 6513244, 6837113, 09412431 ####[facility] [address] [place] [address] Lipase Levelon 03-23-2022 Lipase [Catalytic activity/Vol] 24 U/L Normal 13-58 [facility] Comment on above: Performed By: #### 2 020496, 1308758, 9220165, 33606335, 7932919, 3044816, 81176866 ####[facility] [address] [place] [address] SEROLOGYOrdered By: Dana Garsia on 03-23-2022 Beta hCG Ql Negative (03/23/22 2:15 PM) Normal [facility] Man Sero UA With Cult Reflexon 2021 Bilirubin Ql (U) Negative Normal Negative [facility] Comment on above: Performed By: #### 1 [id number] ####[facility] [address] [place] [address] Clarity (U) CLEAR Normal Clear [facility] Comment on above: Performed By: #### 1 [id number] ####[address] [address] Color (U) YELLOW Normal Yellow [facility] Comment on above: Performed By: #### 1 [id number] ####[address] [address] Epithelial cells.squamous LM.HPF (Urine sed) [#/Area] 0-2 Normal 0-2 [facility] Comment on above: Performed By: #### 1 [id number] ####[address] [address] Glucose Test strip (U) [Mass/Vol] Negative Normal Negative [facility] Comment on above: Performed By: #### 1 [id number] ####[address] [address] Hemoglobin Ql (U) Negative Normal Negative [facility] Comment on above: Performed By: #### 1 [id number] ####[facility] [address] [place] [address] Ketones (U) [Mass/Vol] Negative Normal Negative [facility] Comment on above: Performed By: #### 1 [id number] ####[address] [address] Pantops.plasma/Lit hium.RBC (Bld) [Mass ratio] 0-3 Normal 0-3 [facility] Comment on above: Performed By: #### 1 [id number] ####[facility] [address] [place] [address] Nitrite Ql (U) Negative Normal Negative [facility] Comment on above: Performed By: #### 1 [id number] ####[address] [address] pH (U) 6.5 [pH] Invalid Interpretation Code 5.0-9.0 [facility] Comment on above: Performed By: #### 1 5258747 ####[address] [address] Protein (U) [Mass/Vol] Negative Normal Negative [facility] Comment on above: Performed By: #### 1 7891699 ####[address] [address] Specific gravity (U) [Rel density] 1.010 Invalid Interpretation Code 1.005-1.030 [facility] Comment on above: Performed By: #### 1 [id number] ####[address] [address] Type of Urine collection method Clean Catch Normal [facility] Comment on above: Performed By: #### 1 [id number] ####[address] [address] Urobilinogen Qn (U) 0.2 {Chiara'U}/dL Normal 0.0-1.0 [facility] Comment on above: Performed By: #### 1 [id number] ####[address] [address] WBC Auto Ql (U) Negative Normal Negative [facility] Comment on above: Performed By: #### 1 [id number] ####[address] [address] WBC LM.HPF (Urine sed) [#/Area] 0-5 Normal 0-5 [facility] Comment on above: Performed By: #### 1 [id number] ####[address] [address] URINALYSISOrdered By: Mychal Garsia on 03-23-2022 Bilirubin Ql (U) Negative (03/23/22 2:54 PM) Normal Negative [facility] UA Auto SS Clarity (U) Clear (03/23/22 [...] PM) Normal Negative [facility] UA Auto SS Pantops.plasma/Lit hium.RBC (Bld) [Mass ratio] 0-3 /HPF Normal [...] [facility] UA Auto SS Urobilinogen Qn (U) 0.9960231 {Chiara'U}/dL Normal 0.0 - 1.0 EU/dL [facility] UA Auto SS WBC Auto Ql (U) Negative (03/23/22 2:54 PM) Normal Negative [facility] UA Auto SS WBC LM.HPF (Urine sed) [#/Area] 0-5 /HPF Normal 0-5/HPF [facility] UA Auto SS eGFRon 03-23-2022 GFR/1.73 sq M.predicted among blacks MDRD (S/P/Bld) [Vol rate/Area] mL/min/{1.73_m2} Normal >=59 [facility] Comment on above: Order Comment: Order added by Discern Expert. Result Comment: eGFR is race adjusted. AA=. Performed By: #### 2 305989, 5154903, 2206613, 30911623, 7869852, 0688360, [id number] ####[facility] [address] [place] [address] GFR/1.73 sq M.predicted among non-blacks MDRD (S/P/Bld) [Vol rate/Area] mL/min/{1.73_m2} Normal >=59 [facility] Comment on above: Order Comment: Order added by Discern Expert. Result Comment: [employer] juan pablo kidney disease could be indicated at eGFR's of less than 60 mL/min/1.73m2. Kidney failure is indicated at less than 15 mL/min/1.73m2. Performed By: #### 2 063219, 2493649, 1502395, 56243064, 8244893, 4093704, 57284988 ####[facility] [address] [place] [address] COVID + FLU Quick Testingon 01-06-2022 SARS-CoV-2 (COVID-19) RNA MAKEDA+probe Ql (Unsp spec) Negative [facility] [employer] Other COVID + FLU Quick Testing Negative [facility] [employer] Other COVID + FLU Quick Testing [facility] [employer] Other Lower GI hemoglobin IA Ql (S tl)on 06-21-2021 Occult Blood, Fecal - x1 [facility] [employer] Other Vital Signs Date Time Vital Sign Value Performing Clinician Facility 05-23-2023 14:44-0500 Body mass index (BMI) [Ratio] 36.74 kg/m2 Anjali MARTINEZ Work Phone: [facility] 05-23-2023 14:44-0500 Body weight 92.59 kg Anjali MARTINEZ Work Phone: [facility] 05-23-2023 14:44-0500 Diastolic blood pressure 78 mm[Hg] Anjali MARTINEZ Work Phone: [facility] 05-23-2023 14:44-0500 Systolic blood pressure 118 mm[Hg] Anjali MARTINEZ Work Phone: [facility] 02-22-2023 14:30-0500 Diastolic blood pressure 74 mm[Hg] [facility] 02-22-2023 14:30-0500 Heart rate 74 /min [facility] 02-22-2023 14:30-0500 Respiratory rate 18 /min [facility] 02-22-2023 14:30-0500 SaO2% (BldA) [Mass fraction] 98 % [facility] 02-22-2023 14:30-0500 Systolic blood pressure 126 mm[Hg] [facility] 02-22-2023 12:10-0500 Body temperature 98.06 [degF] [facility] 02-22-2023 12:10-0500 Diastolic blood pressure 64 mm[Hg] [facility] 02-22-2023 12:10-0500 Heart rate 66 /min [facility] 02-22-2023 12:10-0500 Respiratory rate 18 /min [facility] 02-22-2023 12:10-0500 SaO2% (BldA) [Mass fraction] 99 % [facility] 02-22-2023 12:10-0500 Systolic blood pressure 105 mm[Hg] [facility] 12-12-2022 08:45-0400 Body height 157.48 cm Justin Mansoor Other [employer] Other 12-12-2022 08:45-0400 Body mass index (BMI) [Ratio] 32.74 kg/m2 Justin Mansoor Other [employer] Other 12-12-2022 08:45-0400 Body temperature 96.9 [degF] Justin Mansoor Other [employer] Other 12-12-2022 08:45-0400 Body weight 81.19 kg Justin Mansoor Other [employer] Other 12-12-2022 08:45-0400 Diastolic blood pressure 78 mm[Hg] Justin Mansoor Other [employer] Other 12-12-2022 08:45-0400 Respiratory rate 20 /min Justin Mansoor Other [employer] Other 12-12-2022 08:45-0400 SaO2% (BldA) [Mass fraction] 97 % Justin Mansoor Other [employer] Other 12-12-2022 08:45-0400 Systolic blood pressure 122 mm[Hg] Justin Mansoor Other [employer] Other 11-11-2022 11:15-0400 Body height 157.48 cm Justin Mansoor Other [employer] Other 11-11-2022 11:15-0400 Body mass index (BMI) [Ratio] 31.09 kg/m2 Justin Mansoor Other [employer] Other 11-11-2022 11:15-0400 Body temperature 96.9 [degF] Justin Mansoor Other [employer] Other 11-11-2022 11:15-0400 Body weight 77.11 kg Justin Mansoor Other [employer] Other 11-11-2022 11:15-0400 Diastolic blood pressure 78 mm[Hg] Justin Mansoor Other [employer] Other 11-11-2022 11:15-0400 Respiratory rate 20 /min Justin Mansoor Other [employer] Other 11-11-2022 11:15-0400 SaO2% (BldA) [Mass fraction] 97 % Justin Mansoor Other [employer] Other 11-11-2022 11:15-0400 Systolic blood pressure 114 mm[Hg] Justin Mansoor Other [employer] Other 11-09-2022 13:43-0400 Blood Pressure Location Olena Resendez [facility] 11-09-2022 13:43-0400 Body temperature 97.7 [degF] Olena Courtneymetz [facility] 11-09-2022 13:43-0400 Diastolic blood pressure 69 mm[Hg] Olena Mal [facility] 11-09-2022 13:43-0400 Heart rate 111 /min Olena Courtneymetz [facility] 11-09-2022 13:43-0400 Systolic blood pressure 104 mm[Hg] Olena Mal [facility] 10-12-2022 11:45-0400 Body height 157.48 cm Justin Mansoor Other [employer] Other 10-12-2022 11:45-0400 Body mass index (BMI) [Ratio] 31.09 kg/m2 Justin Mansoor Other [employer] Other 10-12-2022 11:45-0400 Body temperature 97.4 [degF] Justin Mansoor Other [employer] Other 10-12-2022 11:45-0400 Body weight 77.11 kg Justin Mansoor Other [employer] Other 10-12-2022 11:45-0400 Diastolic blood pressure 68 mm[Hg] Justin Mansoor Other [employer] Other 10-12-2022 11:45-0400 Respiratory rate 20 /min Justin Mansoor Other [employer] Other 10-12-2022 11:45-0400 SaO2% (BldA) [Mass fraction] 98 % Justin Mansoor Other [employer] Other 10-12-2022 11:45-0400 Systolic blood pressure 112 mm[Hg] Justin Mansoor Other [employer] Other 09-26-2022 14:25-0400 Blood Pressure Location Brandon SALAM [facility] 09-26-2022 14:25-0400 Diastolic blood pressure 57 mm[Hg] Brandon SALAM [facility] 09-26-2022 14:25-0400 Heart rate 97 /min Brandon SALAM [facility] 09-26-2022 14:25-0400 Respiratory rate 16 /min Brandon SALAM [facility] 09-26-2022 14:25-0400 SaO2% (BldA) [Mass fraction] 97 % Brandon SALAM [facility] 09-26-2022 14:25-0400 Systolic blood pressure 107 mm[Hg] Brandon SALAM [facility] 09-26-2022 14:10-0400 Blood Pressure Location Brandon SALAM [facility] 09-26-2022 14:10-0400 Diastolic blood pressure 65 mm[Hg] Brandon SALAM [facility] 09-26-2022 14:10-0400 Heart rate 98 /min Brandon SALAM [facility] 09-26-2022 14:10-0400 Respiratory rate 20 /min Brandon SALAM [facility] 09-26-2022 14:10-0400 SaO2% (BldA) [Mass fraction] 97 % Brandon SALAM [facility] 09-26-2022 14:10-0400 Systolic blood pressure 105 mm[Hg] Brandon SALAM [facility] 09-26-2022 13:59-0400 Blood Pressure Location Brandon SALAM [facility] 09-26-2022 13:59-0400 Diastolic blood pressure 65 mm[Hg] Brandon SALAM [facility] 09-26-2022 13:59-0400 Heart rate 101 /min Brandon SALAM [facility] 09-26-2022 13:59-0400 Respiratory rate 17 /min Brandon SALAM [facility] 09-26-2022 13:59-0400 SaO2% (BldA) [Mass fraction] 98 % Brandon SALAM [facility] 09-26-2022 13:59-0400 Systolic blood pressure 99 mm[Hg] Brandon SALAM [facility] 09-26-2022 13:44-0400 Body temperature 97.52 [degF] Brandon SALAM [facility] 09-26-2022 13:27-0400 Respiratory rate 18 /min Brandon SALAM [facility] 09-26-2022 13:05-0400 Body temperature 96.8 [degF] Brandon SALAM [facility] 09-26-2022 13:05-0400 Respiratory rate 19 /min Brandon SALAM [facility] 09-14-2022 11:45-0400 Body height 157.48 cm Justin Mansoor Other [employer] Other 09-14-2022 11:45-0400 Body mass index (BMI) [Ratio] 30.18 kg/m2 Justin Mansoor Other [employer] Other 09-14-2022 11:45-0400 Body temperature 97.2 [degF] Justin Mansoor Other [employer] Other 09-14-2022 11:45-0400 Body weight 74.84 kg Justin Mansoor Other [employer] Other 09-14-2022 11:45-0400 Diastolic blood pressure 72 mm[Hg] Justin Mansoor Other [employer] Other 09-14-2022 11:45-0400 Respiratory rate 20 /min Justin Mansoor Other [employer] Other 09-14-2022 11:45-0400 SaO2% (BldA) [Mass fraction] 98 % Justin Mansoor Other [employer] Other 09-14-2022 11:45-0400 Systolic blood pressure 112 mm[Hg] Justin Mansoor Other [employer] Other 08-17-2022 12:15-0400 Body height 157.48 cm Justin Mansoor Other [employer] Other 08-17-2022 12:15-0400 Body mass index (BMI) [Ratio] 29.99 kg/m2 Justin Mansoor Other [employer] Other 08-17-2022 12:15-0400 Body temperature 97.2 [degF] Justin Mansoor Other [employer] Other 08-17-2022 12:15-0400 Body weight 74.39 kg Justin Mansoor Other [employer] Other 08-17-2022 12:15-0400 Diastolic blood pressure 82 mm[Hg] Justin Mansoor Other [employer] Other 08-17-2022 12:15-0400 Respiratory rate 20 /min Justin Mansoor Other [employer] Other 08-17-2022 12:15-0400 SaO2% (BldA) [Mass fraction] 97 % Justin Mansoor Other [employer] Other 08-17-2022 12:15-0400 Systolic blood pressure 28 mm[Hg] Justin Mansoor Other [employer] Other 08-05-2022 08:12-0400 Diastolic blood pressure 68 mm[Hg] Román Dominguez [facility] [place] 08-05-2022 08:12-0400 Heart rate 105 /min Román Dominguez [facility] [place] 08-05-2022 08:12-0400 SaO2% (BldA) [Mass fraction] 98 % Román Dominguez [facility] [place] 08-05-2022 08:12-0400 Systolic blood pressure 117 mm[Hg] Rom[facility]inguez [facility] 07-27-2022 09:30-0400 Blood Pressure Location Olena Resendez [facility] 07-27-2022 09:30-0400 Body temperature 97.34 [degF] Olena Resendez [facility] 07-27-2022 09:30-0400 Diastolic blood pressure 70 mm[Hg] Olena Resnedez [facility] 07-27-2022 09:30-0400 Heart rate 102 /min Olena Resendez [facility] 07-27-2022 09:30-0400 Systolic blood pressure 107 mm[Hg] Olena Resendez [facility] 07-19-2022 12:30-0400 Body height 157.48 cm Justincesia MottaMansoor Other [employer] Other 07-19-2022 12:30-0400 Body mass index (BMI) [Ratio] 30.36 kg/m2 Justin Mansoor Other [employer] Other 07-19-2022 12:30-0400 Body temperature 97.4 [degF] Justin Mansoor Other [employer] Other 07-19-2022 12:30-0400 Body weight 75.3 kg Justin Mansoor Other [employer] Other 07-19-2022 12:30-0400 Diastolic blood pressure 68 mm[Hg] Justin Mansoor Other [employer] Other 07-19-2022 12:30-0400 Respiratory rate 20 /min Justin Mansoor Other [employer] Other 07-19-2022 12:30-0400 SaO2% (BldA) [Mass fraction] 97 % Justin Mansoor Other [employer] Other 07-19-2022 12:30-0400 Systolic blood pressure 116 mm[Hg] Justin Mansoor Other [employer] Other 06-06-2022 11:45-0500 Body height 157.48 cm Justin Mansoor Other [employer] Other 06-06-2022 11:45-0500 Body mass index (BMI) [Ratio] 31.46 kg/m2 Justin Mansoor Other [employer] Other 06-06-2022 11:45-0500 Body temperature 96.8 [degF] Justin Mansoor Other [employer] Other 06-06-2022 11:45-0500 Body weight 78.02 kg Justin Mansoor Other [employer] Other 06-06-2022 11:45-0500 Diastolic blood pressure 72 mm[Hg] Justin Mansoor Other [employer] Other 06-06-2022 11:45-0500 Respiratory rate 20 /min Justin Mansoor Other [employer] Other 06-06-2022 11:45-0500 SaO2% (BldA) [Mass fraction] 97 % Justin Mansoor Other [employer] Other 06-06-2022 11:45-0500 Systolic blood pressure 122 mm[Hg] Justin Mansoor Other [employer] Other 04-21-2022 11:30-0500 Body height 157.48 cm Justin Mansoor Other [employer] Other 04-21-2022 11:30-0500 Body mass index (BMI) [Ratio] 31.64 kg/m2 Justin Mansoor Other [employer] Other 04-21-2022 11:30-0500 Body temperature 97.5 [degF] Justin Mansoor Other [employer] Other 04-21-2022 11:30-0500 Body weight 78.47 kg Justin Mansoor Other [employer] Other 04-21-2022 11:30-0500 Diastolic blood pressure 68 mm[Hg] Justin Mansoor Other [employer] Other 04-21-2022 11:30-0500 Respiratory rate 20 /min Justin Mansoor Other [employer] Other 04-21-2022 11:30-0500 SaO2% (BldA) [Mass fraction] 99 % Justin Mansoor Other [employer] Other 04-21-2022 11:30-0500 Systolic blood pressure 110 mm[Hg] Justin Mansoor Other [employer] Other 03-23-2022 15:00-0500 Diastolic blood pressure 66 mm[Hg] [facility] 03-23-2022 15:00-0500 Heart rate 75 /min [facility] 03-23-2022 15:00-0500 Mean blood pressure 81 mm[Hg] [facility] 03-23-2022 15:00-0500 Systolic blood pressure 112 mm[Hg] [facility] 03-23-2022 14:25-0500 Diastolic blood pressure 69 mm[Hg] [facility] 03-23-2022 14:25-0500 Heart rate 94 /min [facility] 03-23-2022 14:25-0500 Respiratory rate 14 /min [facility] 03-23-2022 14:25-0500 SaO2% (BldA) [Mass fraction] 100 % [facility] 03-23-2022 14:25-0500 Systolic blood pressure 84 mm[Hg] [facility] 03-23-2022 13:48-0500 Body temperature 98.06 [degF] [facility] 03-23-2022 13:48-0500 Diastolic blood pressure 84 mm[Hg] [facility] 03-23-2022 13:48-0500 Heart rate 100 /min [facility] 03-23-2022 13:48-0500 Respiratory rate 16 /min [facility] 03-23-2022 13:48-0500 SaO2% (BldA) [Mass fraction] 99 % [facility] 03-23-2022 13:48-0500 Systolic blood pressure 128 mm[Hg] [facility] 12-02-2021 11:00-0400 Body height 157.48 cm Justin Mansoor Other [employer] [facility] [employer] Other 12-02-2021 11:00-0400 Body mass index (BMI) [Ratio] 34.56 kg/m2 Justin Mansoor Other [employer] Other 12-02-2021 11:00-0400 Body temperature 97.6 [degF] Justin Mansoor Other [employer] Other 12-02-2021 11:00-0400 Body weight 85.73 kg Justin Mansoor Other [employer] Other 12-02-2021 11:00-0400 Diastolic blood pressure 82 mm[Hg] Justin Mansoor Other [employer] Other 12-02-2021 11:00-0400 Respiratory rate 20 /min Justin Mansoor Other [employer] Other 12-02-2021 11:00-0400 SaO2% (BldA) [Mass fraction] 98 % Justin Mansoor Other [employer] Other 12-02-2021 11:00-0400 Systolic blood pressure 122 mm[Hg] Justin Mansoor Other [employer] Other 11-05-2021 11:45-0400 Body height 157.48 cm Justin Mansoor Other [employer] Other 11-05-2021 11:45-0400 Body mass index (BMI) [Ratio] 35.3 kg/m2 Justin Mansoor Other [employer] Other 11-05-2021 11:45-0400 Body temperature 98.6 [degF] Justin Mansoor Other [employer] Other 11-05-2021 11:45-0400 Body weight 87.54 kg Justin Mansoor Other [employer] Other 11-05-2021 11:45-0400 Diastolic blood pressure 82 mm[Hg] Justin Mansoor Other [employer] Other 11-05-2021 11:45-0400 Respiratory rate 20 /min Justin Mansoor Other [employer] Other 11-05-2021 11:45-0400 SaO2% (BldA) [Mass fraction] 98 % Justin Mansoor Other [employer] Other 11-05-2021 11:45-0400 Systolic blood pressure 128 mm[Hg] Justin Mansoor Other [employer] Other 10-05-2021 13:45-0400 Body height 157.48 cm Justin Mansoor Other [employer] Other 10-05-2021 13:45-0400 Body mass index (BMI) [Ratio] 36.21 kg/m2 Justin Mansoor Other [employer] Other 10-05-2021 13:45-0400 Body temperature 98.3 [degF] Justin Mansoor Other [employer] Other 10-05-2021 13:45-0400 Body weight 89.81 kg Justin Mansoor Other [employer] Other 10-05-2021 13:45-0400 Diastolic blood pressure 62 mm[Hg] Justin Mansoor Other [employer] Other 10-05-2021 13:45-0400 Respiratory rate 20 /min Justin Mansoor Other [employer] Other 10-05-2021 13:45-0400 SaO2% (BldA) [Mass fraction] 98 % Justin Mansoor Other [employer] Other 10-05-2021 13:45-0400 Systolic blood pressure 96 mm[Hg] Justin Mansoor Other [employer] Other 08-12-2021 12:54-0400 Blood Pressure Location Brandon SALAM [facility] 08-12-2021 12:54-0400 Diastolic blood pressure 84 mm[Hg] Brandon SALAM [facility] 08-12-2021 12:54-0400 Heart rate 75 /min Brandon SALAM [facility] 08-12-2021 12:54-0400 Respiratory rate 16 /min Brandon SALAM [facility] 08-12-2021 12:54-0400 Systolic blood pressure 132 mm[Hg] Brandon SALAM [facility] 06-08-2021 12:15-0500 Body height 157.48 cm Justin Mansoor Other [employer] Other 06-08-2021 12:15-0500 Body mass index (BMI) [Ratio] 36.76 kg/m2 Justin Mansoor Other [employer] Other 06-08-2021 12:15-0500 Body temperature 98.9 [degF] Justin Mansoor Other [employer] Other 06-08-2021 12:15-0500 Body weight 91.17 kg Justin Mansoor Other [employer] Other 06-08-2021 12:15-0500 Diastolic blood pressure 82 mm[Hg] Justin Mansoor Other [employer] Other 06-08-2021 12:15-0500 Respiratory rate 20 /min Justin Mansoor Other [employer] Other 06-08-2021 12:15-0500 SaO2% (BldA) [Mass fraction] 97 % Justin Mansoor Other [employer] Other 06-08-2021 12:15-0500 Systolic blood pressure 122 mm[Hg] Justin Mansoor Other [facility] [employer] Other Encounters Encounter Date Encounter Type Care Provider Facility Start: 08-02-2023 End: 08-02-2023 ambulatory JOCE GEORGE Not Available Start: 07-27-2023 End: 07-27-2023 ambulatory DO Justin M. Mansoor Work Phone: [facility] Work Phone: Start: 07-27-2023 End: 07-27-2023 Patient encounter procedure DO Justin Mansoor [facility] [facility] Work Phone: Start: 07-25-2023 Non-patient / Non-visit DO Set h Mansoor [facility] Work Phone: Start: 06-28-2023 Non-patient / Non-visit DO Set h Mansoor Work Phone: [facility] Physician [facility] Work Phone: Start: 06-28-2023 Non-patient / Non-visit DO Set h Mansoor [facility] Phone[facility] Work Phone: Start: 06-27-2023 End: 06-27-2023 ambulatory Justin M. Mansoor Facility:[facility] Start: 06-27-2023 End: 06-27-2023 Departed Referred DO Justin Mansoor Work Phone: [facility] Start: 06-26-2023 Non-patient / Non-visit DO Set h Mansoor Work Phone: [facility] Physician [facility] Work Phone: Start: 06-22-2023 End: 06-22-2023 ambulatory ANJALI CABRERA Not Available Start: 06-06-2023 End: 06-06-2023 ambulatory JOCE ARIEL Not Available Start: 05-23-2023 End: 05-23-2023 ambulatory ANJALI RICK Not Available Start: 05-23-2023 End: 05-23-2023 flow sheet Anjali MARTINEZ Work Phone: [facility] OB Comment on above: Third trimester preg daniel; Gestational diabetes mellitus (GDM), antepartum, gestational diabetes method of control unspecified; Elevated glucose tolerance test Start: 05-15-2023 End: 05-15-2023 ambulatory Justin Mansoor Other [employer] Other Start: 05-15-2023 Telephone encounter Justin Mansoor [facility] Start: 05-09-2023 End: 05-09-2023 ambulatory JOCE ARIEL Not Available Start: 04-25-2023 End: 04-25-2023 ambulatory ANJALI CABRERA Not Available Start: 04-05-2023 End: 04-05-2023 ambulatory William Payne Other [employer] Other Start: 04-05-2023 Encounter by juan Payne [facility] [place] Start: 04-04-2023 End: 04-04-2023 ambulatory JOCE ARIEL Not Available Start: 03-02-2023 End: 03-02-2023 ambulatory JCOE ARIEL Not Available Start: 02-22-2023 End: 02-22-2023 Emergency department patient visit Rodney Johnson Facility:[facility] Start: 02-22-2023 End: 02-22-2023 Emergency department patient visit [facility] Vinelandyaz Johnson [facility] Start: 02-01-2023 End: 02-01-2023 ambulatory Justin Mansoor Other [employer] Other Start: 02-01-2023 Telephone encounter Justin Mansoor [facility] Start: 01-11-2023 End: 01-11-2023 ambulatory William Payne Other [employer] Other Start: 01-11-2023 Encounter by [employer] r link William Payne [facility] [place] Start: 12-30-2022 End: 12-30-2022 ambulatory Justin Mansoor Other [employer] Other Start: 12-30-2022 Telephone encounter Justin Mansoor [facility] Start: 12-16-2022 End: 12-16-2022 ambulatory Justin Mansoor Other [employer] Other Start: 12-16-2022 Encounter by [employer] r link Justin Mansoor [facility] Start: 12-15-2022 End: 12-15-2022 ambulatory Justin Mansoor Other [employer] Other Start: 12-15-2022 Encounter by [employer] r link Justin Mansoor [facility] Start: 12-12-2022 End: 12-12-2022 ambulatory Justin Mansoor Other [employer] Other Start: 12-12-2022 Office outpatient vi sit 15 minutes Justin Mansoor [facility] Start: 11-30-2022 End: 11-30-2022 ambulatory Justin Mansoor Other [employer] Other Start: 11-30-2022 Encounter by [employer] r link Justin Mansoor [facility] Start: 11-28-2022 End: 11-29-2022 ambulatory William Payne Facility:[facility] Start: 11-15-2022 End: 11-15-2022 ambulatory William Payne Other [employer] Other Start: 11-15-2022 Office outpatient vi sit 15 minutes William Payne [facility] [place] Start: 11-14-2022 End: 11-14-2022 ambulatory Justin Mansoor Other [employer] Other Start: 11-14-2022 Telephone encounter Justin Mansoor [facility] Start: 11-11-2022 End: 11-11-2022 ambulatory Justin Mansoor Other [employer] Other Start: 11-11-2022 Office outpatient vi sit 15 minutes Justin Mansoor [facility] Start: 11-11-2022 Telephone encounter Justin Mansoor [facility] Start: 11-09-2022 End: 11-10-2022 ambulatory Olena Resendez Facility:[facility] Start: 11-09-2022 End: 11-09-2022 Patient encounter procedure [facility] Start: 11-03-2022 End: 11-03-2022 ambulatory William Payne Other [employer] Other Start: 11-03-2022 Encounter by [employer] William Payne [facility] [place] Start: 11-01-2022 End: 11-01-2022 ambulatory Justin Mansoor Other [employer] Other Start: 11-01-2022 Telephone encounter Justin Mansoor [facility] Start: 10-31-2022 End: 10-31-2022 ambulatory Justin Mansoor Other [employer] Other Start: 10-31-2022 Encounter by [employer] Justin Mansoor [facility] Start: 10-26-2022 End: 10-26-2022 ambulatory Justin Mansoor Other [employer] Other Start: 10-26-2022 Encounter by compute r link Justin Mansoor [facility] Start: 10-21-2022 End: 10-21-2022 ambulatory Justin Mansoor Other [employer] Other Start: 10-21-2022 Encounter by compute r link Justin Mansoor [facility] Start: 10-12-2022 End: 10-12-2022 ambulatory Justin Mansoor Other [employer] Other Start: 10-12-2022 Office outpatient vi sit 15 minutes Justin Mansoor [facility] Start: 10-10-2022 End: 10-10-2022 ambulatory William Payne Other [facility] [employer] Other Start: 10-10-2022 Telephone encounter William Payne [employer] Start: 10-06-2022 End: 10-06-2022 ambulatory William Payne Facility:[facility] Start: 10-06-2022 End: 10-06-2022 ambulatory DO Justin M. Mansoor Work Phone: [facility] Work Phone: Start: 10-06-2022 End: 10-06-2022 Patient encounter procedure DO Justin Mansoor Work Phone: [facility] Start: 10-05-2022 End: 10-05-2022 ambulatory William Payne Facility:[facility] Start: 10-05-2022 End: 10-05-2022 ambulatory DO Justin M. Mansoor Work Phone: [facility] Work Phone: Start: 10-05-2022 End: 10-05-2022 Patient encounter procedure DO Justin Mansoor Work Phone: [facility]-XRay [address] Work Phone: Start: 09-30-2022 End: 09-30-2022 ambulatory Justin Mansoor Other [employer] Other Start: 09-30-2022 Encounter by [employer] r link Justin Mansoor [facility] Start: 09-29-2022 End: 09-29-2022 ambulatory William Payne Other [employer] Other Start: 09-29-2022 Telephone encounter William Payne [facility] [place] Start: 09-28-2022 End: 09-28-2022 ambulatory Justin Mansoor Other [employer] Other Start: 09-28-2022 Telephone encounter Justin Mansoor [facility] Start: 09-26-2022 End: 09-27-2022 [facility] Start: 09-26-2022 End: 09-26-2022 Patient encounter procedure [facility] Start: 09-19-2022 End: 09-19-2022 ambulatory Justin Mansoor Other [employer] Other Start: 09-19-2022 Encounter by [employer] r link Justin Mansoor [facility] Start: 09-14-2022 End: 09-14-2022 ambulatory Justin Mansoor Other [employer] Other Start: 09-14-2022 Office outpatient vi sit 25 minutes Justin Mansoor [facility] Start: 09-14-2022 Telephone encounter Justin Mansoor [facility] Start: 08-24-2022 End: 08-24-2022 ambulatory Justin Mansoor Other [employer] Other Start: 08-24-2022 Encounter by compute r link Justin Mansoor [facility] Start: 08-24-2022 Telephone encounter Justin Mansoor [facility] Start: 08-23-2022 End: 08-23-2022 ambulatory Justin Mansoor Other [employer] Other Start: 08-23-2022 Encounter by compute r link Justin Mansoor [facility] Start: 08-17-2022 End: 08-17-2022 ambulatory Justin Mansoor Other [employer] Other Start: 08-17-2022 Office outpatient vi sit 15 minutes Justin Mansoor [facility] Start: 08-16-2022 End: 08-16-2022 ambulatory Justin Mansoor Other [employer] Other Start: 08-16-2022 Encounter by compute r link Justin Mansoor [facility] Start: 08-10-2022 End: 08-10-2022 ambulatory Justin Mansoor Other [employer] Other Start: 08-10-2022 Encounter by compute r link Justin Mansoor [facility] Start: 08-05-2022 End: 08-06-2022 ambulatory Román Dominguez Facility:[facility] Start: 08-05-2022 End: 08-05-2022 Patient encounter procedure Román Dominguez [facility] [place] Start: 08-02-2022 ambulatory Román Dominguez Facilit y:[facility] Start: 07-29-2022 End: 07-30-2022 ambulatory Olena Resendez Facility:[facility] Start: 07-29-2022 End: 07-29-2022 Patient encounter procedure JUSTIN M MANSOOR [facility] Start: 07-27-2022 End: 07-28-2022 ambulatory Olena Resendez Facility:[facility] Start: 07-27-2022 End: 07-27-2022 Patient encounter procedure Olena Resendez [facility] Start: 07-22-2022 End: 07-22-2022 ambulatory Justin Mansoor Other [employer] Other Start: 07-22-2022 Telephone encounter Justin Mansoor [facility] Start: 07-19-2022 End: 07-19-2022 ambulatory Justin Mansoor Other [employer] Other Start: 07-19-2022 Office outpatient vi sit 25 minutes Justin Mansoor [facility] Start: 07-06-2022 End: 07-06-2022 ambulatory Justin Mansoor Other [employer] Other Start: 07-06-2022 Encounter by juan Duran [facility] Start: 07-06-2022 Telephone encounter Justin Mansoor [facility] Start: 07-02-2022 End: 07-03-2022 ambulatory JUSTIN M MANSOOR Facility:[facility] Start: 07-02-2022 End: 07-02-2022 Patient encounter procedure JUSTIN M MANSOOR [facility] Start: 06-27-2022 End: 06-27-2022 ambulatory Justin Mansoor Other [employer] Other Start: 06-27-2022 Telephone encounter Justin Mansoor [facility] Start: 06-24-2022 End: 06-24-2022 ambulatory Justin Mansoor Other [employer] Other Start: 06-24-2022 Encounter by [employer] link Justin Mansoor [facility] Start: 06-20-2022 End: 06-20-2022 ambulatory Justin Mansoor Other [employer] Other Start: 06-20-2022 Telephone encounter Justin Mansoor [facility] Start: 06-14-2022 End: 06-14-2022 ambulatory Justin Mansoor Other [employer] Other Start: 06-14-2022 Encounter by [employer] link Justin Mansoor [facility] Start: 06-14-2022 Telephone encounter Justin Mansoor [facility] Start: 06-13-2022 End: 06-13-2022 ambulatory Justin Mansoor Other [employer] Other Start: 06-13-2022 Telephone encounter Justin Mansoor [facility] Start: 06-06-2022 End: 06-06-2022 ambulatory Justin Mansoor Other [employer] Other Start: 06-06-2022 Office outpatient vi sit 25 minutes Justin Mansoor [facility] Start: 05-24-2022 End: 05-24-2022 ambulatory Justin Mansoor Other [employer] Other Start: 05-24-2022 Encounter by [employer] link Justin Mansoor [facility] Start: 05-16-2022 End: 05-16-2022 ambulatory Justin Mansoor Other [employer] Other Start: 05-16-2022 Telephone encounter Justin Mansoor [facility] Start: 05-09-2022 End: 05-09-2022 ambulatory Justin Mansoor Other [employer] Other Start: 05-09-2022 Encounter by compute r link Justin Mansoor [facility] Start: 04-23-2022 End: 04-23-2022 ambulatory Justin Mansoor Other [employer] Other Start: 04-23-2022 Encounter by compute r link Justin Mansoor [facility] Start: 04-21-2022 End: 04-21-2022 ambulatory Justin Mansoor Other [employer] Other Start: 04-21-2022 Encounter by compute r link Justin Mansoor [facility] Start: 04-21-2022 Office outpatient vi sit 15 minutes Justin Mansoor [facility] Start: 04-03-2022 End: 04-03-2022 ambulatory Justin Mansoor Other [employer] Other Start: 04-03-2022 Encounter by compute r link Justin Mansoor [facility] Start: 03-24-2022 End: 03-24-2022 ambulatory Justin Mansoor Other [employer] Other Start: 03-24-2022 Telephone encounter Justin Mansoor [facility] Start: 03-23-2022 End: 03-23-2022 Emergency department patient visit Rodney Johnson Facility:[facility] Start: 03-23-2022 End: 03-23-2022 Emergency department patient visit Rodney Johnson [facility] Start: 03-07-2022 End: 03-07-2022 ambulatory Justin Mansoor Other [employer] Other Start: 03-07-2022 Encounter by [employer] r link Justin Mansoor [facility] Start: 02-10-2022 End: 02-10-2022 ambulatory Justin Mansoor Other [employer] Other Start: 02-10-2022 Encounter by [employer] r link Justin Mansoor [facility] Start: 01-24-2022 End: 01-24-2022 ambulatory Justin Mansoor Other [employer] Other Start: 01-24-2022 Nursing evaluation o f patient and report Justin Mansoor [facility] Start: 01-18-2022 End: 01-18-2022 ambulatory Justin Mansoor Other [employer] Other Start: 01-18-2022 Encounter by [employer] r link Justin Mansoor [facility] Start: 01-18-2022 Telephone encounter Justin Mansoor [facility] Start: 01-12-2022 End: 01-12-2022 ambulatory Justin Mansoor Other [employer] Other Start: 01-12-2022 Telephone encounter Justin Mansoor [facility] Start: 01-06-2022 End: 01-06-2022 ambulatory Justin Mansoor Other [employer] Other Start: 01-06-2022 Office outpatient vi sit 15 minutes Justin Mansoor [facility] Start: 01-06-2022 Telephone encounter Justin Mansoor [facility] Start: 12-14-2021 End: 12-14-2021 ambulatory Justin Mansoor Other [employer] Other Start: 12-14-2021 Encounter by [employer] r link Justin Mansoor [facility] Start: 12-02-2021 End: 12-02-2021 ambulatory Justin Mansoor Other [employer] Other Start: 12-02-2021 Office outpatient vi sit 15 minutes Justin Mansoor [facility] Start: 11-22-2021 End: 11-22-2021 ambulatory Justin Mansoor Other [employer] Other Start: 11-22-2021 Telephone encounter Justin Mansoor [facility] Start: 11-17-2021 End: 11-17-2021 ambulatory Justin Mansoor Other [employer] Other Start: 11-17-2021 Telephone encounter Justin Mansoor [facility] Start: 11-16-2021 End: 11-16-2021 ambulatory Justin Mansoor Other [employer] Other Start: 11-16-2021 Telephone encounter Justin Mansoor [facility] Start: 11-05-2021 End: 11-05-2021 ambulatory Justin Mansoor Other [employer] Other Start: 11-05-2021 Office outpatient vi sit 15 minutes Justin Mansoor [facility] Start: 10-22-2021 End: 10-22-2021 ambulatory Justin Mansoor Other [employer] Other Start: 10-22-2021 Encounter by [employer] r link Justin Mansoor [facility] Start: 10-05-2021 End: 10-05-2021 ambulatory Justin Mansoor Other [employer] Other Start: 10-05-2021 Office outpatient vi sit 15 minutes Justin Mansoor [facility] Start: 09-27-2021 End: 09-27-2021 ambulatory Justin Mansoor Other [employer] Other Start: 09-27-2021 Encounter by [employer] r link Justin Mansoor [facility] Start: 09-01-2021 End: 09-01-2021 ambulatory Justin Mansoor Other [employer] Other Start: 09-01-2021 Encounter by [employer] Justin Mansoor [facility] Start: 08-23-2021 End: 08-23-2021 ambulatory Johana Duran Other [employer] Other Start: 08-23-2021 Telephone encounter Johanadavid [place] [facility] Start: 08-18-2021 End: 08-18-2021 ambulatory Justin Mansoor Other [employer] Other Start: 08-18-2021 Telephone encounter Justin Mansoor [facility] Start: 08-12-2021 End: 11-22-2021 Recurring Brandon SALAM [facility] Start: 08-12-2021 End: 08-12-2021 Patient encounter procedure Brandon SALAM [facility] Start: 08-05-2021 End: 08-05-2021 ambulatory Justin Mansoor Other [employer] Other Start: 08-05-2021 Encounter by [employer] link Justin Mansoor [facility] Start: 06-21-2021 End: 06-21-2021 ambulatory Justin Mansoor Other [employer] Other Start: 06-21-2021 Telephone encounter Justin Mansoor [facility] Start: 06-08-2021 End: 06-08-2021 ambulatory Justin Mansoor Other [employer] Other Start: 06-08-2021 Office outpatient vi sit 15 minutes Justin Mansoor [facility] Start: 02-26-2021 End: 02-26-2021 ambulatory Justin Mansoor Other [employer] Other Start: 02-26-2021 Nursing evaluation o f patient and report Justin Mansoor [facility] Start: 02-26-2021 Telephone encounter Justin Mansoor [facility] Procedures Date Procedure Procedure Detail Performing Clinician [...] Brandon SALAM None (qualifier value) Brandon SALAM Plan of Treatment Date Care Activity Detail Author Start: 06-06-2023 End: 06-06-2023 Patient encounter procedure 06/06/2023 8:30 AM EST Routine [facility] [address] [place] [address] [place] [address] Joce George, DO [address] [place] [address] [place] [address] [facility] OB MR Thoracic spine [facility] Patient Education Low back pain in adults [facility] Work Phone: Immunizations Immunization Date Immunization Notes Care Provider Fa shilpa 01-24-2022 influenza virus vaccine, unspecified formulation Olena Mal [facility] 01-24-2022 influenza, injectable, quadrivalent, preservative free DO Justin Mansoor Work Phone: [facility] 01-24-2022 influenza, injectable, quadrivalent, contains preservative Justin Mansoor Other [employer] Other 02-26-2021 influenza virus vaccine, unspecified formulation Olena Mal [facility] 02-26-2021 influenza, injectable, quadrivalent, preservative free DO Justin Mansoor Work Phone: [facility] 02-26-2021 influenza, injectable, quadrivalent, contains preservative Justin Mansoor Other [employer] Other 02-15-2021 influenza virus vaccine, unspecified formulation Brandon SALAM [facility] 02-11-2020 influenza virus vaccine, unspecified formulation Olena Mal [facility] 02-11-2020 influenza, injectable, quadrivalent, preservative free DO Justin Mansoor Work Phone: [facility] 02-11-2020 influenza, injectable, quadrivalent, contains preservative Justin Mansoor Other [employer] Other 01-22-2019 influenza, injectable, quadrivalent, contains preservative Justin Mansoor Other [employer] Other 01-22-2019 influenza virus vaccine, unspecified formulation Olena Mal [facility] 01-22-2019 influenza, injectable, quadrivalent, preservative free DO Justin Mansoor Work Phone: [facility] 12-08-2011 meningococcal ACWY vaccine, unspecified formulation Olena Mal [facility] 12-08-2011 tetanus toxoid, reduced diphtheria toxoid, and acellular pertussis vaccine, adsorbed Olena Mal [facility] 09-08-1998 DTaP, unspecified formulation Olena Mal [facility] 09-08-1998 measles, mumps and rubella virus vaccine Olena Mal [facility] 08-17-1994 measles, mumps and rubella virus vaccine Olena Mal [facility] 1993 hepatitis B vaccine, pediatric or pediatric/adolescen t dosage Olena Mal [facility] 1993 Hib, unspecified formulation Olena Mal [facility] 1993 Hib, unspecified formulation Olena Mal [facility] 1993 hepatitis B vaccine, pediatric or pediatric/adolescen t dosage Olena Mal [facility] 1993 Hib, unspecified formulation Olena Mal [facility] 1993 hepatitis B vaccine, pediatric or pediatric/adolescen t dosage Olena Resendez [facility] NEGATED: Highlighted row has not occurred! 3 SARS-CoV-2 mRNA (tozinameran 5y-11y) vaccine Román Dominguez [facility] [place] NEGATED: Highlighted row has not occurred! 9 influenza, injectable, quadrivalent, contains preservative Patient Objection Justin Mansoor Other [employer] Other NEGATED: Highlighted row has not occurred! 9 influenza, injectable, quadrivalent, contains preservative Patient Objection Justin Mansoor Other [employer] Other NEGATED: Highlighted row has not occurred! 8 influenza, injectable, quadrivalent, contains preservative Patient Objection Justin Mansoor Other [employer] Other NEGATED: Highlighted row has not occurred! 8 influenza, injectable, quadrivalent, contains preservative Patient Objection Justin Mansoor Other [employer] Other NEGATED: Highlighted row has not occurred! 8 influenza, injectable, quadrivalent, contains preservative Patient Objection Justin Mansoor Other [employer] Other Payers Date Payer Category Payer Private Health Insurance [facility] [id number] 2023-Present [address] [address] [place] [address] [id number] 2023 Private Health Insurance [id number] 2022 Self-pay [id number] 2022 Unknown [id number] 2022 [employer] [id number] 2022 Unknown [id number] 1993 Unknown [id number] 2.16.840.1.921985.3.579.2. 727 1993 Unknown [id number] 2.16.840.1.835831.3.579.2. 727 1993 Unknown [id number] 2.16.840.1.568068.3.579.2. 727 1993 Unknown [id number] 2.16.840.1.695407.3.579.2. 727 1993 Unknown [id number] 2.16.840.1.288759.3.579.2. 727 1993 Unknown [id number] 2.16.840.1.028390.3.579.2. 727 1993 Unknown [id number] 2.16.840.1.736531.3.579.2. 727 1993 Unknown [id number] 2.16.840.1.666444.3.579.2. 727 1993 Unknown [id number] 2.16.840.1.462479.3.579.2. 727 1993 Unknown [id number] 2.16.840.1.534030.3.579.2. 727 1993 Unknown [id number] 2.16.840.1.887615.3.579.2. 1259 1993 Unknown [id number] 2.16.840.1.939993.3.579.2. 1259 1993 Unknown [id number] 2.16.840.1.978190.3.579.2. 1259 1993 Unknown [id number] 2.16.840.1.801313.3.579.2. 9 1993 Unknown [id number] 2.16.840.1.508806.3.579.2. 1259 1993 Unknown [id number] 2.16.840.1.611427.3.579.2. 9 1993 Unknown [id number] 2.16.840.1.015155.3.579.2. 9 1993 Unknown [id number] 2.16.840.1.598745.3.579.2. 1259 Medicaid [employer] [id number] Unknown [facility] [facility] [place] [id number] Unknown [id number] Unknown [id number] Unknown [id number] Unknown [id number] Social History Date Type Detail Facility Start: 08-12-2021 End: 11-09-2022 Tobacco smoking status Heavy tobacco smoker (finding) [facility] [employer] Other Comment on above: Quit 2 yrs ago Tobacco smoking status Never [facility] Comment on above: Quit 2 yrs ago Start: 02-17-2023 Sex Assigned At Female N [facility] [employer] Other Start: 1995 Sex Assigned At Female F [facility] Start: 04-19-2023 [facility] History [...] Sex Assigned At Not on file N [facility] Start: 11-15-2022 Gender identity Identifies as female gender (finding) [facility] Start: 11-15-2022 Sexual orientation Heterosexual (fin ding) [facility] Start: 06-08-2018 Tobacco smoking stat [facility] Ex-smoker (finding) [facility] Procedure Code Equipment Code Equipment Origin al Text Equipment Identifier Dates 1 strip by In Vi tro route in the morning. Use in the morning prior to breakfast, 1 hour after each meal for a total of 4times daily.. [id number] Start: 05-23-2023 End: 06-22-2023 1 each by In Vit ro route in the morning. Use to check FSBS four times daily. [id number] Start: 05-23-2023 End: 06-22-2023 Functional Status Date Assessment Result Facility 02-22-2023 Functional Status N/A [facility] 11-09-2022 Functional Status N/A [facility] 09-26-2022 Functional Status N/A [facility] 08-05-2022 Functional Status N/A [facility] General [facility] [place] 07-27-2022 Functional Status N/A [facility] 03-23-2022 Functional Status N/A [facility] Clinical Notes 05-18-2020 to 05-23-2023 MICHELLE Rowe - 05/23/2023 2:40 PM EST Note [...] ultra thin, montelukast, omeprazole, ondansetron, promethazine, rizatriptan credit control administrator, seroquel xr, sutab, and ubrelvy. Medical History: [...] Pt states having growth US tomorrow at [facility]. Patient presents today for a routine obstetrics [...] of: MICHELLE Rowe documented in this encounter [facility] 04-05-2023 Evaluation note Encounter Date Diagnosis Assessment Notes Mar, Thoracic back pain (ICD-10 - M54.6) [employer] Other 11-08-2023 Evaluation + Plan noteExtracted from: Title:ED Note Author:Alphonso MAURICE, Dmitry Sharma te:02/22/23 Vomiting during (O 21.9: Vomiting of , unspecified) Orders: metoclopramide, 5 mg = 1 tab(s), Oral, q6hr, to use if zofran fails., X 7 day(s), # 20 tab(s), Refills(s) 0, Pharmacy: [facility], 158, cm, 02/22/23 12:17:00 EST, Height/Length Dosing, 87.3, kg, 02/22/23 12:17:00 EST, Weight Dosing ondansetron, 4 mg = 1 tab(s), Oral, q8hr, PRN Nausea/Vomiting, # 12 tab(s), Refills(s) 0, Pharmacy: [facility], 158, cm, 02/22/23 12:17:00 EST, Height/Length [...] Diff 07/27/22 * Comprehensive Metabolic Panel 07/27/22 [facility]11-08-2023 Hospital Discharge instructions Follow Up Care 02/22/2023 11:55:55 With:Joce GEORGE Address: [address] , [place] [address]- Business (1) When:02/25/2023 14:21:57 With:JUSTIN MAX Address: [facility] [place] [address]- Business (1) When:02/25/2023 14:21:48 Comments:Follow-up with your primary care provider in 3 to 5 days. If symptoms worsen, do not improve, or new symptoms arise please report back to emergency department for further evaluation. [facility]09-27-2023 Evaluation note* Encounter Date Diagnosis Assessment Notes Treatment Notes Treatment Clinical Notes Dec, Thoracic back pain (ICD-10 - M54.6) [facility] 09-15-2023 Evaluation note* Encounter Date Diagnosis Assessment Notes Treatment Notes Treatment Clinical Notes Dec, Migraine without aura and without status migrainosus, not intractable (ICD-10 - G43.009) [employer] [facility] 08-31-2023 Evaluation note* Encounter Date Diagnosis Assessment Notes Treatment Notes Treatment Clinical Notes Nov, Migraine without aura and without status migrainosus, not intractable (ICD-10 - G43.009) [employer] [facility] 08-28-2023 Evaluation note* Encounter Date Diagnosis [...] Z3A.09) Obviously continue to follow-up with OB. [facility] 08-01-2023 Evaluation note* Encounter Date Diagnosis [...] like her to discuss this with her RACK CARRIER prior to doing so. Patient was instructed to call should her RACK CARRIER be in aggrement with proceeding with trigger point injections. Additionally she will clarify what pain treatment measures including OTC treatments are acceptable to use during her . Anatomy of spine discussed in detail with patient in regard to patients condition. Nov, Muscle pain, lumbar (ICD-10 - M79.18) Nov, Chronic pain (ICD-10 - G89.29) Nov, Other Above note writ ten by Sabrina aCo LPN, Case Sealer. Edited and approved by Dr. William Payne MD. [facility] 07-28-2023 Evaluation note* Encounter Date Diagnosis Assessment Notes Treatment Notes Treatment Clinical Notes Oct, Obesity (BMI 30-39.9) (ICD-10 - E66.9) Discussed with patient that we certainly could do further medication, but patient again declines today. I think this is quite reasonable. Call with any concerns or change. [employer] [facility] 07-26-2023 Hospital Discharge instructions Patient Education [...] help quitting, ask your health careprovider. Take uvdw-lkr-zildyzm and prescription medicines only as told by your health care provider. ?Do not use esic-zfh-gkupeas medicines in place of prescription medicines unless [...] help quitting, ask your health careprovider. Take peqn-rva-uamqerw and prescription medicines only as told by your health care provider. Do not use yipc-qce-ycxauei medicines in place of prescription medicines unless your health care provider approves. Limit your alcohol and caffeine intake. Keep all follow-up visits. This is important. This information is not intended to replace advice given to you by your health care provider. Make sure you discuss any questions you have with your health care provider. Document Revised: 11/12/2021 Document Reviewed: 11/12/2021 [employer] Patient Education 2022 [employer]. Follow Up Care 10/11/2022 13:11:28 With:Olena Resendez CNP Address: When:1 month [facility] 07-17-2023 Evaluation note* Encounter Date Diagnosis Assessment Notes Treatment Notes Treatment Clinical Notes Oct, Arthritis of lumbosacral spine (ICD-10 - M47.817) [employer] Other 07-07-2023 Evaluation note* Encounter Date Diagnosis Assessment Notes Treatment Notes Treatment Clinical Notes Oct, Arthritis of lumbosacral spine (ICD-10 - M47.817) [employer] [facility] 06-28-2023 Evaluation note* Encounter Date Diagnosis [...] pain management should she require something more. [employer] Other 06-15-2023 Evaluation note* Encounter Date Diagnosis Assessment Notes Treatment Notes Treatment Clinical Notes Sep, Right shoulder pain (ICD-10 - M25.511) Sep, Cervical pain (ICD-10 - M54.2) [employer] [facility] 06-14-2023 Note [id number]:127[facility] 09-26-2022 Hospital Discharge instructions Patient Education 09/26/2022 14:06:02 [facility] NSAIDS-Nonsteroidal Anti-Inflammatory Medications (CUSTOM) Nonsteroidal Anti-Inflammatory Medications [...] pain neck pain Some NSAIDs are available ijhu-rdx-pwwchfu, without the need for a prescription. However, [...] than your doctor has prescribed. Follow the smkt-idt-bheuccr labels and do not exceed the recommended [...] on caring for [facility]. Your doctor may also give you specific [...] help quitting, ask your health careprovider. Take hyuq-dku-nazwqfl and prescription medicines only as told by your health care provider. ?Do not use hwzn-snc-peqdgtn medicines in place of prescription medicines unless [...] help quitting, ask your health careprovider. Take txkx-orn-gjzorwk and prescription medicines only as told by your health care provider. Do not use mjkh-iqv-zryrdqc medicines in place of prescription medicines unless your health care provider approves. Limit your alcohol and caffeine intake. Keep all follow-up visits. This is important. This information is not intended to replace advice given to you by your health care provider. Make sure you discuss any questions you have with your health care provider. Document Revised: 11/12/2021 Document Reviewed: 11/12/2021 [employer] Patient Education 2022 [employer]. 09/26/2022 14:06:02 Upper Endoscopy, Adult, Care After [...] what activities are safe for you. Take evyr-mzt-vkyahrn and prescription medicines only as told by [...] provider. Document Revised: 02/07/2020 Document Reviewed: 09/03/2018 [employer] Patient Education 2022 [employer]. Follow Up Care 07/27/2022 10:18:04 With:Roma HAWKINS Address: [address] [place] [address] [address] [place] [address] Business (1) When: Unknown Comments:Dr Hawkins's office will call you to schedule follow up appointment [facility]06-12-2023 Evaluation + Plan noteExtracted from: Title:ANES Pre-operative Note - Endo Author:Sam Sandoval Jr., DO Date:09/26/22 Plan [place] [employer]hesi[employer] (ASA) physical status classification: Class II. Anesthetic Preoperative Plan: Anesthesia General, and -TIVA. Future Scheduled Tests Laboratory* CBC w/ Auto Diff 07/27/22 * Comprehensive Metabolic Panel 07/27/22 [facility]05-31-2023 Evaluation note* Encounter Date Diagnosis [...] R41.840) August, BMI 30.0-30.9,adult (ICD-10 - Z68.30) [facility]. We will proceed with the third month and see patient back in 4 weeks for recheck. [facility] [employer] [facility] Other 05-31-2023 Evaluation note* Encounter Date Diagnosis [...] August, BMI 30.0-30.9,adult (ICD-10 - Z68.30) [facility] [place] -eRx sent. We will proceed with the third month and see patient back in 4 weeks for recheck. August, Obesity (BMI 30-39.9) (ICD-10 - E66.9) [facility] [employer] [facility] Other 05-10-2023 Evaluation note* Encounter Date Diagnosis Assessment Notes Treatment Notes Treatment Clinical Notes August, Degenerative disc disease, lumbar (ICD-10 - M51.36) [facility] Other 05-09-2023 Evaluation note* Encounter Date Diagnosis Assessment Notes Treatment Notes Treatment Clinical Notes August, Degenerative disc disease, lumbar (ICD-10 - M51.36) [facility] Other 05-03-2023 Evaluation note* Encounter Date Diagnosis Assessment Notes Treatment Notes Treatment Clinical Notes August, BMI 29.0-29.9,adult (ICD-10 - Z68.29) [facility] [place] E Rx sent. We will recheck again in 1 month. August, Degenerative disc disease, lumbar (ICD-10 - M51.36) [facility] [place] -discussed with patient that certainly we will hold the Mobic as it made things worse. We will try 1 final anti-inflammatory . I am interested to see what pain management suggests. [facility] [employer] [facility] Other 05-02-2023 Evaluation note* Encounter Date Diagnosis Assessment Notes Treatment Notes Treatment Clinical Notes August, Degenerative disc disease, lumbar (ICD-10 - M51.36) [facility] 04-26-2023 Evaluation note* Encounter Date Diagnosis Assessment Notes Treatment Notes Treatment Clinical Notes Jul, Degenerative disc disease, lumbar (ICD-10 - M51.36) [facility] 04-21-2023 Hospital Discharge instructions Patient Education [...] ?Hypothyroidism. ?Polycystic ovarian syndrome (PCOS). ?Binge-eating disorder. ?Pleasant Unity syndrome. Taking certain medicines, such as steroids, [...] and how much exercise you get. Take vkqx-zns-fnekalh and prescription medicines only as told by [...] provider. Document Revised: 11/09/2021 Document Reviewed: 11/09/2021 [employer] Patient Education 2022 [employer]. [facility] General Surgery [place] 04-12-2023 Hospital Discharge instructions Patient Education 07/27/2022 [...] observation. Follow these instructions at home: Take expc-suw-zredetj and prescription medicines only as told by [...] on the cause of the bleeding. Take cluf-sjz-oyhqqbq and prescription medicines only as told by [...] 03/31/2001 Document Revised: 11/14/2018 Document Reviewed: 11/14/2018 [employer] Patient Education 2019 [employer]. Follow Up Care 07/11/2022 11:35:32 With:Olena Resendez CNP Address: When:1 to 2 weeks Comments:Following EGD/Colonoscopy. [facility] 04-04-2023 Evaluation note* Encounter Date Diagnosis Assessment Notes Treatment Notes Treatment Clinical Notes Jul, BMI 30.0-30.9,adult (ICD-10 - Z68.30) [facility] [place] -E Rx sent. No other change today. [...] Certain to continue to follow-up with psychiatry. [facility] 03-22-2023 Evaluation note* Encounter Date Diagnosis Assessment Notes Treatment Notes Treatment Clinical Notes Jun, Degenerative disc disease, lumbar (ICD-10 - M51.36) [facility] [employer] [facility] [facility] 03-13-2023 Evaluation note* Encounter Date Diagnosis Assessment Notes Treatment Notes Treatment Clinical Notes Jun, Low back pain, unspecified back pain laterality, unspecified chronicity, unspecified whether sciatica present (ICD-10 - M54.50) [facility] [employer] [facility] [facility] 03-10-2023 Evaluation note* Encounter Date Diagnosis Assessment Notes Treatment Notes Treatment Clinical Notes Jun, Degenerative disc disease, lumbar (ICD-10 - M51.36) [facility] [employer] [facility] Other 02-28-2023 Evaluation note* Encounter Date Diagnosis Assessment Notes Treatment Notes Treatment Clinical Notes May, Degenerative disc disease, lumbar (ICD-10 - M51.36) [employer] Other 02-27-2023 Evaluation note* Encounter Date Diagnosis Assessment Notes Treatment Notes Treatment Clinical Notes May, Migraine without aura and without status migrainosus, not intractable (ICD-10 - G43.009) [employer] Other 02-20-2023 Evaluation note* Encounter Date Diagnosis [...] deficit (ICD-10 - R41.840) Pt to see [id number] - she is to make appt online... [employer] Other 02-07-2023 Evaluation note* Encounter Date Diagnosis Assessment Notes Treatment Notes Treatment Clinical Notes May, Degenerative disc disease, lumbar (ICD-10 - M51.36) May, Seasonal allergies (ICD-10 - J30.2) [employer] Other 01-30-2023 Evaluation note* Encounter Date Diagnosis Assessment Notes Treatment Notes Treatment Clinical Notes Apr, Anxiety (ICD-10 - F41.9) [facility] [employer] [facility] Other 01-23-2023 Evaluation note* Encounter Date Diagnosis Assessment Notes Treatment Notes Treatment Clinical Notes Apr, Degenerative disc disease, lumbar (ICD-10 - M51.36) [facility] [employer] Other 01-07-2023 Evaluation note* Encounter Date Diagnosis Assessment Notes Treatment Notes Treatment Clinical Notes Apr, Migraine without aura and without status migrainosus, not intractable (ICD-10 - G43.009) [employer] Other 01-05-2023 Evaluation note* Encounter Date Diagnosis Assessment Notes Treatment Notes Treatment Clinical Notes Apr, Degenerative disc disease, lumbar (ICD-10 - M51.36) [facility] sent. Leg he discussion with patient today that we need to pursue new imaging as well as physical therapy. I think she would benefit from having an MRI, but we will need to pursue conservative therapy first. She voices agreement and understanding. [facility] [employer] Other 01-05-2023 Evaluation note* Encounter Date Diagnosis Assessment Notes Treatment Notes Treatment Clinical Notes Apr, Degenerative disc disease, lumbar (ICD-10 - M51.36) [facility] [employer] Other 12-18-2022 Evaluation note* Encounter Date Diagnosis Assessment Notes Treatment Notes Treatment Clinical Notes Mar, Degenerative disc disease, lumbar (ICD-10 - M51.36) [facility] [employer] [facility] [facility] 12-07-2022 Hospital Discharge instructions Patient Education [...] treatment. Follow these instructions at home: Take wsym-xyg-efnpgpe and prescription medicines only as told by [...] 08/18/2016 Document Revised: 07/26/2019 Document Reviewed: 08/18/2016 [employer] Patient Education 2020 [employer]. 03/23/2022 15:45:11 Bloody Diarrhea Bloody Diarrhea Bloody [...] oral rehydration solution (ORS). This is an nyrg-zjr-jcwfrsu medicine that helps return your body to [...] drinks, and soda. ?Avoid alcohol. Eat bland, hxuj-jp-djmyol foods in small amounts as you are able. These foods include bananas, applesauce, rice, lean meats, toast, and crackers. Avoid spicy or fatty foods. Medicines Take tgxx-wse-fqwodbp and prescription medicines only as told by [...] water are not available, use a hand manager electrical. Others in the household should wash their [...] 04/03/2006 Document Revised: 09/13/2018 Document Reviewed: 09/13/2018 [employer] Patient Education 2020 [employer] 03/23/2022 15:45:11 Rectal Bleeding, Eepv-oq-Mpub Rectal Bleeding Rectal bleeding is when blood [...] 12/14/2011 Document Revised: 03/16/2018 Document Reviewed: 05/29/2016 [employer] Patient Education 2020 [employer] Follow Up Care 03/23/2022 13:43:37 With:Roma HAWKINS Address: [address] [place] [address]. [address] [place] [address] Business (1) When:03/26/2022 15:23:44 Comments:Follow-up with Dr. Hawkins for further evaluation of your blood in your stool. With:JUSTIN MAX Address: [facility] [place] [address] [address] [address] Business (1) When:03/26/2022 15:23:32 Comments:Follow-up with your primary care provider in 3 to 5 days. If symptoms worsen, do not improve, or new symptoms arise please report back to emergency department for further evaluation. [facility]12-07-2022 Evaluation + Plan noteExtracted from: Title:ED Note Author:Dmitry Werner PA-C te:03/23/22 Blood in stool (K92.1: Torie hernandez) Orders: ondansetron, 4 mg = 1 tab(s), Oral, q8hr, PRN Nausea/Vomiting, # 12 tab(s), Refills(s) 0, Pharmacy: [facility], 157, cm, 03/23/22 13:50:00 EST, Height/Length [...] Metabolic Panel 08/12/21 * C-Reactive Protein 08/12/21 [facility]11-21-2022 Evaluation note* Encounter Date Diagnosis Assessment Notes Treatment Notes Treatment Clinical Notes Feb, Degenerative disc disease, lumbar (ICD-10 - M51.36) [facility] [employer] [facility] [facility] 10-27-2022 Evaluation note* Encounter Date Diagnosis Assessment Notes Treatment Notes Treatment Clinical Notes Jan, Degenerative disc disease, lumbar (ICD-10 - M51.36) Jan, Anxiety (ICD-10 - F41.9) Jan, Seasonal allergies (ICD-10 - J30.2) [facility] 10-10-2022 Evaluation note* Encounter Date Diagnosis Assessment Notes Treatment Notes Treatment Clinical Notes Jan, Flu vaccine need (ICD-10 - Z23) [facility] 10-04-2022 Evaluation note* Encounter Date Diagnosis Assessment Notes Treatment Notes Treatment Clinical Notes Jan, Degenerative disc disease, lumbar (ICD-10 - M51.36) [facility] [employer] [facility] [facility] 09-22-2022 Evaluation note* Encounter Date Diagnosis Assessment Notes Treatment Notes Treatment Clinical Notes Dec, Viral upper respiratory tract infection (ICD-10 - J06.9) Discussed with patient that everything was normal but her symptoms certainly are significant. Therefore we will treat and patient will call with update. Dec, Degenerative disc disease, lumbar (ICD-10 - M51.36) [facility] [employer] Other 08-30-2022 Evaluation note* Encounter Date Diagnosis Assessment Notes Treatment Notes Treatment Clinical Notes Nov, Degenerative disc disease, lumbar (ICD-10 - M51.36) [facility] [employer] [facility] Other 08-18-2022 Evaluation note* Encounter Date Diagnosis Assessment Notes Treatment Notes Treatment Clinical Notes Nov, BMI 34.0-34.9,adult (ICD-10 - Z68.34) eRX sent. OARRS completed. Pt to call with any concerns. [facility] Other 08-08-2022 Evaluation note* Encounter Date Diagnosis Assessment Notes Treatment Notes Treatment Clinical Notes Nov, Seasonal allergies (ICD-10 - J30.2) [employer] [facility] 08-03-2022 Evaluation note* Encounter Date Diagnosis Assessment Notes Treatment Notes Treatment Clinical Notes Nov, Degenerative disc disease, lumbar (ICD-10 - M51.36) [employer] Other 08-02-2022 Evaluation note* Encounter Date Diagnosis Assessment Notes Treatment Notes Treatment Clinical Notes Nov, Anxiety (ICD-10 - F41.9) [employer] Other 07-22-2022 Evaluation note* Encounter Date Diagnosis Assessment Notes Treatment Notes Treatment Clinical Notes Oct, BMI 35.0-35.9,adult (ICD-10 - Z68.35) E Rx sent. No other change today. We will recheck again in 1 month. Oct, Seasonal allergies (ICD-10 - J30.2) Pt to add OTC antihistamine - also do nasal steroid spray every day - 2 puffs.... [employer] Other 07-08-2022 Evaluation note* Encounter Date Diagnosis Assessment Notes Treatment Notes Treatment Clinical Notes Oct, Degenerative disc disease, lumbar (ICD-10 - M51.36) [employer] Other 06-21-2022 Evaluation note* Encounter Date Diagnosis Assessment Notes Treatment Notes Treatment Clinical Notes Sep, BMI 36.0-36.9,adult (ICD-10 - Z68.36) E Rx sent. OARRs completed. We will see patient back in 1 month. We discussed side effects and outcomes. [employer] Other 06-13-2022 Evaluation note* Encounter Date Diagnosis Assessment Notes Treatment Notes Treatment Clinical Notes Sep, Degenerative disc disease, lumbar (ICD-10 - M51.36) [employer] Other 05-18-2022 Evaluation note* Encounter Date Diagnosis Assessment Notes Treatment Notes Treatment Clinical Notes August, Degenerative disc disease, lumbar (ICD-10 - M51.36) [employer] Other 05-09-2022 Evaluation note* Encounter Date Diagnosis Assessment Notes Treatment Notes Treatment Clinical Notes August, Poison danilo (ICD-10 - L23.7) [employer] Other 05-04-2022 Evaluation note* Encounter Date Diagnosis Assessment Notes Treatment Notes Treatment Clinical Notes August, Anxiety (ICD-10 - F41.9) August, Seasonal allergies (ICD-10 - J30.2) [employer] [facility] 04-28-2022 Evaluation + Plan note Future Scheduled Tests Laboratory* Sedimentation Rate Automated 08/12/21 * CBC w/ Auto Diff 08/12/21 * Comprehensive Metabolic Panel 08/12/21 * C-Reactive Protein 08/12/21 [facility]04-21-2022 Evaluation note* Encounter Date Diagnosis Assessment Notes Treatment Notes Treatment Clinical Notes Jul, Degenerative disc disease, lumbar (ICD-10 - M51.36) [employer] Other 03-07-2022 Evaluation note* Encounter Date Diagnosis Assessment Notes Treatment Notes Treatment Clinical Notes Jun, Bloody stool (ICD-10 - K92.1) [employer] Other 02-22-2022 Evaluation note* Encounter Date Diagnosis [...] for scoping. She voices agreement and understanding. [facility] [employer] Other 11-12-2021 Evaluation note* Encounter Date Diagnosis Assessment Notes Treatment Notes Treatment Clinical Notes Feb, Degenerative disc disease, lumbar (ICD-10 - M51.36) [employer] Other 11-12-2021 Evaluation note* Encounter Date Diagnosis Assessment Notes Treatment Notes Treatment Clinical Notes Feb, Need for influenza vaccination (ICD-10 - Z23) [facility] [employer] Other 02-01-2021 History general Narrative - Reported* Type Description Date Medical History degenerative disc disease Medical History anxiety Medical History COVID - May 2020 [employer] [facility] Other 02-01-2021 History general Narrative - Reported* Type Description Date Medical History degenerative disc disease Medical History anxiety Medical History COV - May 2020 Medical History 5 weeks gestation [employer] Other Evaluation + Plan note Future Appointments Appointment Date:08/24/2021 11:15:00 AM Scheduled Provider: Location:[facility] Appointment Type:Surgery PAT COVID Testing Future Scheduled Tests Laboratory* Sedimentation Rate Automated 08/12/21 * CBC w/ Auto Diff 08/12/21 * Comprehensive Metabolic Panel 08/12/21 * C-Reactive Protein 08/12/21 [facility] Evaluation + Plan note Future Appointments Appointment Date:07/29/2022 01:00:00 PM Scheduled Provider: Location:.[facility] Appointment Type:US Abdominal/Pelvis (FT) Appointment Date:07/29/2022 06:00:00 PM Scheduled Provider: Location:.MRI Appointment Type:MRI Spine (FT) Appointment Date:09/26/2022 02:05:00 PM Scheduled Provider: Location:[facility] Appointment Type:Surgery FT Future Scheduled Tests Laboratory* Sedimentation Rate Automated 08/12/21 * CBC w/ Auto Diff 08/12/21 * CBC w/ Auto Diff 07/27/22 * Comprehensive Metabolic Panel 08/12/21 * Comprehensive Metabolic Panel 07/27/22 * C-Reactive Protein 08/12/21 Radiology* US Gallbladder 07/29/22 * MRI Spine Lumbar w/o Contrast 07/29/22 [facility] Evaluation + Plan note Future Appointments Appointment Date:09/26/2022 02:05:00 PM Scheduled Provider: Location:[facility] Appointment Type:Surgery FT Future Scheduled Tests Laboratory* Sedimentation Rate Automated 08/12/21 * CBC w/ Auto Diff 08/12/21 * CBC w/ Auto Diff 07/27/22 * Comprehensive Metabolic Panel 08/12/21 * Comprehensive Metabolic Panel 07/27/22 * [facility]ments Appointment Date:11/18/2022 08:30:00 AM Scheduled Provider: Location:[facility] Appointment Type:Surgery FT Future Scheduled Tests Laboratory* CBC w/ Auto Diff 07/27/22 * Comprehensive Metabolic Panel 07/27/22 [facility] Evaluation noteNo InformationNort Mojostreet Other Evaluation noteNo assessment information available [facility] Work Phone: [facility] Other Evaluation noteNoeSilicon Mojostreet Other Evaluation note* Diagnosis Third trimester state, incidental Gestational diabetes mellitus (GDM), antepartum, gestational diabetes method of control unspecified Elevated glucose tolerance test Impaired glucose tolerance test documented in this encounter [facility]* Diagnosis Onset Date Resolution Status Arthritis of lumbosacral spine acute Chronic pain acute Lumbar muscle pain acute Thoracic back pain acute [facility] Work Phone: History general Narrative - ReportedNoAdient Health Other History general Narrative - ReportedThe [employer] Other Hospital course Narrative No data available for this section [facility] Hospital Discharge instructions No data available for this section [facility] Progress note No data available for this section [facility] Advance Directives No Advanced Directives Records Found Advance Directive Response Recorded Date/ Time Advance Directives No June 27, 2 019 8:37am Summary Purpose Family History No Family History Records Found Chief Complaint and Reason for Visit Chief Complaint Unknown Amb Documentation Amb Documentation BACK PAIN Reason for Visit Arthritis of lumbosa cral spine Chronic pain Lumbar muscle pain Thoracic back pain Additional Source Comments REASON FOR VISIT (unrecogniz ed section and content) Reason Comments Routine Visit Care Team (unrecognized sect ion and content) Team Status: Active Member Role Status Dates Justin Max DO Primary Care Provider Active Team Status: Active Member Role Status Dates Justin Max DO Primary Care Provid er, Attending Provider Active Start: June 26, 2023 Team Status: Inactive Member Role Status Dates Justin Max DO Primary Care Provider Active Start: June 27, 2023 End: June 27, 2023 Joce George Attending Provider Active Start: 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 Relationship Specialty Start Date End Date Justin Max MD [address] [place] [id number] PCP - General 12/02/22 Team Status: Active Member Role Status Dates Justin Max DO Primary Care Provider Active Start: July 25, 2023 Samantha Fajardo LPN Attending Provider Active S tart: July 25, 2023 Team Status: Inactive Member Role Status Dates Justin Max DO Primary Care Provider Active Start: July 27, 2023 End: July 27, 2023 William Payne MD Attending Provider Active Sta rt: July 27, 2023 End: July 27, 2023 Goals (unrecognized section and content) Goals may be documented in a n alternate section INFORMATION SOURCE (unrecogn ized section and content) DATE CREATED AUTHOR 02/26/2023 Luis Fernando Chacon [facility] DATE CREATED AUTHOR AUTHOR'S ORGANIZ ATION 06/29/2023 [facility] DATE CREATED AUTHOR AUTHOR'S ORGANIZ ATION 08/03/2023 [facility] FOR RECORDS PERTAINING TO PATIENTS WHO [...] BE BASED ON THE PRIMARY CLINICAL RECORDS. [employer] provides no warranty or guarantee of the accuracy or completeness of information in this document.
[2023-08-18 07:31] LABS: Basophils Absolute Auto 0.1 10^3/uL (0.0-0.1); Basophils Percent Auto 0.8 % (0.2-2.0); Eosinophils Absolute Auto 0.4 10^3/uL (0.0-0.7); Eosinophils Percent Auto 4.6 % (0.9-7.0); Hemoglobin 11.4 g/dL (12.0-16.0); Immature Granulocytes Abs Auto 0.02 10^3/uL (0.00-0.03); Immature Granulocytes Pct Auto 0.3 % (0.0-0.5); Lymphocytes Absolute Auto 1.7 10^3/uL (1.2-3.8); Lymphocytes Percent Auto 22.3 % (20.5-60.0); Mean Corpuscular HGB Conc 30.8 g/dL (29.9-35.2); Mean Corpuscular Hemoglobin 27.7 pg (26.7-34.0); Mean Platelet Volume 9.6 fL (9.5-13.5); Monocytes Absolute Auto 0.7 10^3/uL (0.3-0.8); Monocytes Percent Auto 8.6 % (1.7-12.0); Neutrophils Absolute Auto 4.8 10^3/uL (1.4-6.5); Neutrophils Percent Auto 63.4 % (43.0-75.0); Platelet Count 471 10^3/uL (150-450); Red Blood Count 4.11 10^6/uL (4.20-5.40); Red Cell Distribution Width 15.8 % (11.0-15.0); White Blood Count 7.5 10^3/uL (4.0-11.0)
[2023-08-18 07:53] LABS: HCG Quantitative <1 mIU/mL
[2023-08-18] MEDS: LACTATED RINGER'S SOLUTION 1,000 ML 50 ML IV (07:56)
[2023-08-18] MEDS: LACTATED RINGER'S SOLUTION 1,000 ML 1000 ML IV (11:11)
--- NOTE | 2023-08-18 11:22 | P.ON_ITS ---
Brief Operative Note Date of procedure: 08/18/23 Pre-op diagnosis general: desires permanent sterilization, multiparity Post-op diagnosis: same as pre-op Procedure: NAME OF PROCEDURE: robotic assisted bilateral laparoscopic salpingectomy PROCEDURE: The patient was taken back to the Operating Room where she was given general anesthesia without difficulty. She was then prepped and draped in the normal sterile fashion after being placed in a dorsal lithotomy position. A wet sponge stick was placed into the patient's vagina. Attention was then turned to the patient's abdomen, where a scalpel was used to make a small infraumbilical incision. The S retractors were then used to dissect the underlying layers until the fascia could be seen. The fascia was then grasped with Royer clamps and tented up. A knife was then used to make a small incision to the fascia. The muscle was identified, at that time two sutures of #0 Vicryl on a GI needle was then used and placed through the fascia. the peritoneum was then identified and entered bluntly. The 10-4 Michael was then placed into the patient's abdomen. This was confirmed with direct visualization of the bowel, using the laparoscope. The patient's abdomen was then insufflated using approximately 4 liters of CO2 gas. Survey of the patient's abdomen demonstrated ovaries were normal in appearance as well as both tubes and uterus. A second and third rt and lt lateral robotic ports which were 8 mm in size, was then placed after the skin incision was made under direct visualization . the robotic arms were engaged. The patient's tube on the patient's right side was identified and tented up using a grasper, the ligasure apparatus was then used to come across the mesosalpingx from the fimbriated end to the insertion site at the uterus, the tube was then amputated and removed in its entirety. This was done on the contralateral side. The tubes were the removed from the patients abdomen. Excellent hemostasis was noted. The lateral ports were then moved under direct visualization with excellent hemostasis. All instruments were removed from the patient's abdomen. The fascia was closed using the #0 Vicryl on GI needle. The skin was closed using 4-0 Vicryl subcuticularly. All instruments were removed from the patient's vagina as well. The patient was taken out of the dorsal lithotomy position and placed in the supine position and taken to recovery in s table condition. Sponge, lap and needle counts were correct x2. 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
[2023-08-18] MEDS: HYDROCODONE/ACET 5-325 MG TABLET 1 TAB PO (11:52)
[2023-08-18] MEDS: HYDROMORPHONE HCL 0.5 MG/0.5 ML SYRINGE IV (12:05)
--- NOTE | 2023-08-18 12:14 | PC.NURSE ---
Medicated with oral pain medication as ordered
--- NOTE | 2023-08-18 12:23 | PC.NURSE ---
Medicated with IV Dilaudid as ordered
--- NOTE | 2023-08-18 12:49 | PC.NURSE ---
Up to bathroom and voids clear yellow without difficulty
== END 2023-08-18 13:25 | disposition home or self-care (01) ==
PROVIDERS: PCP Family Medicine; Visit Provider Obstetrics & Gynecology
PROC: (CPT 840; principal; 2023-08-18 08:50)
DX: Z30.2 Encounter for sterilization (principal); Z86.32 Personal history of gestational diabetes; M19.90 Unspecified osteoarthritis, unspecified site; F17.210 Nicotine dependence, cigarettes, uncomplicated; E66.01 Morbid (severe) obesity due to excess calories; Z68.39 Body mass index [BMI] 39.0-39.9, adult
CPT/HCPCS: 58661; 36415; 84702; 85025; 88302; J1094; J1170; J2704

== ENCOUNTER 2023-08-21 11:13 | Emergency (ER) | payer OTHER, SELFPAY ==
[2023-08-21 11:29] VITALS: BP 121/81; PULSE 91; TEMP 37.1; O2SAT 99; BMI 35.7
--- NOTE | 2023-08-21 11:38 | ED.GENADUL1 ---
HPI HPI - General Adult General Chief complaint: Skin/Abscess/Foreign Body Stated complaint: POST OPERATIVE COMPLICATIONS Time Seen by Provider: 08/21/23 11:33 Source: patient Mode of arrival: walk-in Limitations: no limitations History of Present Illness HPI narrative: 28-year-old female presents for swelling. 3 days ago she had laparoscopic salpingectomy. Afterwards she had swelling she states on the left side of her face and her left hand and her ankle. The left face and left hand have gone down significantly. She still feels a little bit of swelling in the left ankle. She states it does not look swollen but it feels tight. No chest pain or shortness of breath. Related Data Home Medications ?Medication ?Instructions ?Recorded ?Confirmed cyclobenzaprine 10 mg tablet 10 mg PO BID 06/26/23 08/21/23 aripiprazole 5 mg tablet 5 mg PO DAILY 08/09/23 08/21/23 escitalopram oxalate 20 mg tablet 20 mg PO DAILY 08/09/23 08/21/23 omeprazole 40 mg capsule,delayed 40 mg PO DAILY 08/09/23 08/21/23 release tramadol 50 mg tablet 50 mg PO Q8H 08/09/23 08/21/23 ubrogepant 100 mg tablet (Ubrelvy) 100 mg PO DAILY PRN migraine 08/09/23 08/21/23 headache atomoxetine 40 mg capsule 40 mg PO DAILY 08/21/23 08/21/23 (Strattera) Previous Rx's ?Medication ?Instructions ?Recorded ibuprofen 800 mg tablet 800 mg PO Q8H PRN pain 14 days #40 08/18/23 tabs Allergies Allergy/AdvReac Type Severity Reaction Status Date / Time codeine Allergy Intermediate Rash Verified 06/26/23 16:47 Opioid HPI Opioid Management Most Recent Opioid Data: Last Pain Scale 2 08/18/23 13:05 Last Pain Assessment 08/18/23 13:05 Ur Phencyclidine Scrn Negative (NEGATIVE) 06/26/23 14:45 Review of Systems ROS Narrative A ten point review of systems is negative except as noted above. [facility] Medical History (Updated 08/21/23 @ 12:48 by Barry Locke MD) Neck pain ?M54.2 - Cervicalgia (ICD-10) DDD (degenerative disc disease) Osteoarthritis ?M19.90 - Unspecified osteoarthritis, unspecified site (ICD-10) Back pain ?M54.9 - Dorsalgia, unspecified (ICD-10) Panic attacks ?F41.0 - Panic disorder [episodic paroxysmal anxiety] (ICD-10) Depression ?F32.A - Depression, unspecified (ICD-10) Anxiety ?F41.9 - Anxiety disorder, unspecified (ICD-10) COVID-19 ?U07.1 - COVID-19 (ICD-10) Migraine ?G43.909 - Migraine, unspecified, not intractable, without status migrainosus (ICD-10) Kidney stones ?N20.0 - Calculus of kidney (ICD-10) Request for sterilization ?Z30.2 - Encounter for sterilization (ICD-10) Nausea ?R11.0 - Nausea (ICD-10) GERD (gastroesophageal reflux disease) ?K21.9 - Gastro-esophageal reflux disease without esophagitis (ICD-10) Peptic ulcer ?K27.9 - Peptic ulcer, site unspecified, unspecified as acute or chronic, without hemorrhage or perforation (ICD-10) History of blood transfusion ?Z92.89 - Personal history of other medical treatment (ICD-10) Spinal headache ?G97.1 - Other reaction to spinal and lumbar puncture (ICD-10) Gestational diabetes ?O24.419 - Gestational diabetes mellitus in , unspecified control (ICD-10) Surgical History (Updated 08/09/23 @ 10:22 by Amiar Sotelo NP) History of esophagogastroduodenoscopy (EGD) ?Z98.890 - Other specified postprocedural states (ICD-10) History of colonoscopy ?Z98.890 - Other specified postprocedural states (ICD-10) Family History (Updated 08/09/23 @ 10:22 by Amira Sotelo NP) Other Family history of hypertension Social History (Updated 08/09/23 @ 10:16 by Amira Sotelo NP) Within the past year, how often did you have a drink containing alcohol: monthly or less Smoking status: Current every day smoker What tobacco products do you use: cigarettes Packs per day: 1 Years smoked: 10 Smoking pack-years: 10.00 Non-prescribed substance use: denies use 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 General: The patient appears well and in no apparent distress. Patient is resting comfortably on cart. Skin: Warm, dry, no pallor noted. There is no rash noted. Head: Normocephalic, atraumatic Eye: Normal conjunctiva, no drainage. There may be a minimal amount of edema of the left lateral eyelid Ears, Nose, Mouth, and Throat: oral mucosa is moist. Nares patent. Cardiovascular: Regular Rate and Rhythm Respiratory: Patient is in no distress, no accessory muscle use, lungs are clear to auscultation, no wheezing, rales or rhonchi Back: non-tender, no CVA tenderness bilaterally to percussion. GI: Surgical wounds are healing well. No dehiscence or erythema Musculoskeletal: No ankle edema is noted. No joint swelling Neurological: A&O, normal speech Psychiatric: Cooperative Constitutional Vital Signs, click to edit/add: Last Vital Signs Temp 98.8 F 08/21/23 11:29 Pulse 91 H 08/21/23 11:29 Resp 18 08/21/23 11:29 BP 121/81 08/21/23 11:29 Pulse Ox 99 08/21/23 11:29 O2 Del Method Room Air 08/21/23 11:29 Course Vital Signs Vital signs: Vital Signs Temperature 98.8 F 08/21/23 11:29 Pulse Rate 91 H 08/21/23 11:29 Respiratory Rate 18 08/21/23 11:29 Blood Pressure 121/81 08/21/23 11:29 Pulse Oximetry 99 08/21/23 11:29 Oxygen Delivery Method Room Air 08/21/23 11:29 Temperature 98.8 F 08/21/23 11:29 Pulse Rate 91 H 08/21/23 11:29 Respiratory Rate 18 08/21/23 11:29 Blood Pressure 121/81 08/21/23 11:29 Pulse Oximetry 99 08/21/23 11:29 Oxygen Delivery Method Room Air 08/21/23 11:29 Medical Decision Making MDM Narrative Medical decision making narrative: Blood work is nonspecific. I have no clinical suspicion of acute intra-abdominal pathology or DVT. She is reassured and discharged home. Case discussed with Dr. George. Lab Data Lab results reviewed: Yes I reviewed the patient's lab results Labs: Lab Results 08/21/23 08/21/23 Range/Units 11:44 11:48 WBC 8.6 (4.0-11.0) 10^3/uL RBC 3.64 L (4.20-5.40) 10^6/uL Hgb 10.2 L (12.0-16.0) g/dL Hct 32.9 L (36.0-48.0) % MCV 90.4 (81.0-99.0) fL MCH 28.0 (26.7-34.0) pg MCHC 31.0 (29.9-35.2) g/dL RDW 16.2 H (11.0-15.0) % Plt Count 539 H (150-450) 10^3/uL MPV 9.5 (9.5-13.5) fL Neut % (Auto) 57.6 (43.0-75.0) % Lymph % (Auto) 30.7 (20.5-60.0) % Ward % (Auto) 7.6 (1.7-12.0) % Eos % (Auto) 2.6 (0.9-7.0) % Baso % (Auto) 0.7 (0.2-2.0) % Neut # (Auto) 5.0 (1.4-6.5) 10^3/uL Lymph # (Auto) 2.6 (1.2-3.8) 10^3/uL Ward # (Auto) 0.7 (0.3-0.8) 10^3/uL Eos # (Auto) 0.2 (0.0-0.7) 10^3/uL Baso # (Auto) 0.1 (0.0-0.1) 10^3/uL Abs Immat Gran (auto) 0.07 H (0.00-0.03) 10^3/uL Imm/Tot Granulo (auto) 0.8 H (0.0-0.5) % Sodium 144 (136-145) mmol/L Potassium 3.7 (3.5-5.1) mmol/L Chloride 108 H (98-107) mmol/L Carbon Dioxide 27.6 (21.0-32.0) mmol/L Anion Gap 12.1 BUN 8.0 (7.0-18.0) mg/dL Creatinine 0.78 (0.55-1.02) mg/dL Est GFR ( Amer) >60 (>=60) Est GFR (Non-Af Amer) >60 (>=60) BUN/Creatinine Ratio 10.3 Glucose 103 (74-106) mg/dL Calcium 9.3 (8.5-10.1) mg/dL Urine Color Lt. yellow (YELLOW) Urine Clarity Clear (CLEAR) Urine pH 6.5 (5.0-9.0) Ur Specific [place] 1.015 (1.005-1.025) Urine Protein Negative (NEG/TRACE) mg/dL Urine Glucose (UA) Negative (NEGATIVE) mg/dL Urine Ketones Negative (NEGATIVE) mg/dL Urine Occult Blood Negative (NEGATIVE) Urine Nitrite Negative (NEGATIVE) Urine Bilirubin Negative (NEGATIVE) Urine Urobilinogen 0.2 (0.2-1.0) EU/dL Ur Leukocyte Esterase Negative (NEGATIVE) Urine RBC 0-2 (0-2) #/HPF Urine WBC 0-2 A (NONE SEEN) #/HPF Ur Squamous Epith Cells Few A (NONE/RARE) #/LPF Urine Crystals None seen (None Seen) #/HPF Urine Bacteria Trace A (NONE SEEN) #/HPF Urine Casts None seen (NONE SEEN) #/LPF Urine Mucus None seen (NONE SEEN) Discharge Plan Discharge Stand Alone Forms: Portal Instructions Chief Complaint: Skin/Abscess/Foreign Body Clinical Impression: Post-operative pain Patient Disposition: Home, Self-Care Time of Disposition Decision: 12:47 Condition: Good Mode of Transportation: Private Vehicle Prescriptions / Home Meds: No Action cyclobenzaprine 10 mg tablet 10 mg PO BID escitalopram oxalate 20 mg tablet 20 mg PO DAILY aripiprazole 5 mg tablet 5 mg PO DAILY omeprazole 40 mg capsule,delayed release(DR/EC) 40 mg PO DAILY tramadol 50 mg tablet 50 mg PO Q8H Ubrelvy 100 mg tablet 100 mg PO DAILY PRN (Reason: migraine headache) ibuprofen 800 mg tablet 800 mg PO Q8H PRN (Reason: pain) 14 Days Qty: 40 0RF atomoxetine [Strattera] 40 mg capsule 40 mg PO DAILY Print Language: Northern Irish Instructions: Pain Management After Surgery (DC) Referrals: JUSTIN LEGER [Primary Care Provider] - 1 week
[2023-08-21 11:57] LABS: Bilirubin Urine NEGATIVE (NEGATIVE); Blood Urine NEGATIVE (NEGATIVE); Clarity Urine CLEAR (CLEAR); Color Urine LT. YELLOW (YELLOW); Glucose Urine UA NEGATIVE (NEGATIVE); Ketones Urine NEGATIVE (NEGATIVE); Leukocyte Esterase Urine NEGATIVE (NEGATIVE); Nitrite Urine NEGATIVE (NEGATIVE); Protein Urine NEGATIVE (NEG/TRACE); Specific Gravity Urine 1.015 (1.005-1.025); Urobilinogen Urine 0.2 EU/dL (0.2-1.0); pH Urine 6.5 (5.0-9.0)
[2023-08-21 11:58] LABS: Basophils Absolute Auto 0.1 10^3/uL (0.0-0.1); Basophils Percent Auto 0.7 % (0.2-2.0); Eosinophils Absolute Auto 0.2 10^3/uL (0.0-0.7); Eosinophils Percent Auto 2.6 % (0.9-7.0); Hematocrit 32.9 % (36.0-48.0); Hemoglobin 10.2 g/dL (12.0-16.0); Immature Granulocytes Abs Auto 0.07 10^3/uL (0.00-0.03); Immature Granulocytes Pct Auto 0.8 % (0.0-0.5); Lymphocytes Absolute Auto 2.6 10^3/uL (1.2-3.8); Lymphocytes Percent Auto 30.7 % (20.5-60.0); Mean Corpuscular Volume 90.4 fL (81.0-99.0); Mean Platelet Volume 9.5 fL (9.5-13.5); Monocytes Absolute Auto 0.7 10^3/uL (0.3-0.8); Monocytes Percent Auto 7.6 % (1.7-12.0); Neutrophils Percent Auto 57.6 % (43.0-75.0); Platelet Count 539 10^3/uL (150-450); Red Blood Count 3.64 10^6/uL (4.20-5.40); Red Cell Distribution Width 16.2 % (11.0-15.0); White Blood Count 8.6 10^3/uL (4.0-11.0)
[2023-08-21 12:05] LABS: Bacteria Urine TRACE #/HPF (NONE SEEN); Cast Seen? NONE SEEN #/LPF (NONE SEEN); Crystals Seen? None Seen #/HPF (None Seen); Mucus Urine NONE SEEN (NONE SEEN); RBC Urine 0-2 #/HPF (0-2); Squamous Epithelial Cell Urine FEW #/LPF (NONE/RARE); WBC Urine 0-2 #/HPF (NONE SEEN)
[2023-08-21 12:07] LABS: Anion Gap 12.1; BUN Creatinine Ratio 10.3; Calcium 9.3 mg/dL (8.5-10.1); Carbon Dioxide 27.6 mmol/L (21.0-32.0); Chloride 108 mmol/L (98-107); Estimated GFR (African America >60 (>=60); Estimated GFR (Non-African Ame >60 (>=60); Glucose 103 mg/dL (74-106); Potassium 3.7 mmol/L (3.5-5.1); Sodium 144 mmol/L (136-145)
[2023-08-21 12:58] VITALS: BP 125/69; PULSE 82; TEMP 36.8; O2SAT 98
== END 2023-08-21 13:06 | disposition home or self-care (01) ==
PROVIDERS: Emergency Provider Emergency Medicine; PCP Family Medicine
DX: G89.18 Other acute postprocedural pain (principal); M79.89 Other specified soft tissue disorders; M19.90 Unspecified osteoarthritis, unspecified site; F41.0 Panic disorder [episodic paroxysmal anxiety]; F41.9 Anxiety disorder, unspecified; Z86.16 Personal history of COVID-19; Z87.442 Personal history of urinary calculi; K21.9 Gastro-esophageal reflux disease without esophagitis; Z86.32 Personal history of gestational diabetes; F17.210 Nicotine dependence, cigarettes, uncomplicated
CPT/HCPCS: 36415; 80048; 81001; 85025; 99283